=== PATIENT | female | born 1955 | race African-American/Black ===

== ENCOUNTER 2017-07-04 13:12 | Inpatient (IN) | payer OTHER ==
[~2017-07-04] VITALS: Ht 160 cm; Wt 84.7 kg
[~2017-07-04 13:12] MED LIST: ACIDOPHILUS1 CAP PO; ADVAIR 250-501 EACH INH; ALBUTEROL2.5 MG/3 M INH; AMLODIPINE BESY10 M1 PO; ASPIRIN EC81 M1 PO; CARVEDILOL25 M1 PO; COREG12.5 M1 PO; COREG3.125 MG PO; ECOTRIN81 MG PO; FERROUS SULFAT325 M2 PO; GENTAMICIN SULFA5 ML OPH; HUMALOG KW100 UNIT/1 SC; HYDRALAZINE HC100 M1 PO; HYDRALAZINE HCL50 M1 PO; HYDROXYZINE HCL25 M2 PO; ILEVRO1.7 ML; LANTUS SOL100 UNIT/1 SC; LASIX40 M1 PO; LEADER NIC14 MG/24 H TOP; LEVEMIR100 UNIT/1 SC; LISINOPRIL40 M1 PO; LOMOTIL 0.025 M1 TAB PO; LOMOTIL 2.5-0.1 EACH PO; LYRICA50 M1 PO; NICOTINE PATCH1 EAC2 TD; NORVASC10 M1 PO; NOVOLOG100 UNIT/2 SC; PERCOCET 7.5-31 EACH PO; PRAVACHOL40 M1 PO; PROAIR HFA8.5 GM INH; PROCRIT20000 UNIT SC; PROTONIX40 M3 PO; TRADJENTA5 M1 PO; TRAMADOL50 MG PO; TRAZODONE HCL150 M1 PO; TRICOR48 M1 PO; VOLTAREN100 GM TOP; ZESTRIL10 M1 PO
[2017-07-04 13:48] LABS: ABSOLUTE BASOPHIL COUNT 0.1 /CUMM (0.0-0.2); ABSOLUTE EOSINOPHIL COUNT 0.1 /CUMM (0.0-0.7); ABSOLUTE LYMPH COUNT 0.9 /CUMM (1.2-3.4); MEAN PLATELET VOLUME 7.8 FL (7.4-10.4)
[2017-07-04 13:56] LABS: ABSOLUTE GRANULOCYTE CT 6.8 /CUMM (1.4-6.5); ABSOLUTE MONOCYTE COUNT 0.6 /CUMM (0.10-0.60); BASOPHIL % 1.3 % (0.0-2.0); EOSINOPHIL % 0.8 % (0-5); HEMATOCRIT 20.5 % (37-47); MEAN CORPUSCULAR HGB CONC 29.6 G/DL (33.0-37.0); MEAN CORPUSCULAR VOLUME 91.1 FL (81.0-99.0); PLATELET COUNT 448 /CUMM (130-400); RBC DISTRIBUTION WIDTH 18.6 % (11.5-14.5); RED BLOOD CELL CT 2.25 /CUMM (4.20-5.40); WHITE BLOOD CELL COUNT 8.4 /CUMM (4.8-10.8)
--- NOTE | 2017-07-04 14:15 | ED CARDIAC/CP/PALPITATIONS ---
History of Present Illness General Chief Complaint: Chest Pain Stated Complaint: C/O CHEST PAIN SOB Source: patient, old records Exam Limitations: no limitations Vital Signs & Intake/Output Vital Signs & Intake/Output Vital Signs Date Time Temp Pulse Resp B/P B/P Pulse O2 O2 Flow FiO2 Mean Ox Delivery Rate 07/04 1539 Nasal 2.0L Cannula 07/04 1513 98.8 68 18 167/69 99 Room Air 07/04 1328 98.5 73 18 117/71 90 Room Air Allergies Coded Allergies: No Known Allergies (09/01/15) Reconcile Medications Albuterol Sulfate (Proair Hfa) 90 MCG HFA.AER.AD 2 PUF INH Q4 BREATHING PROBLEMS Albuterol Sulfate 2.5 MG/3 ML (0.083 %) VIAL.NEB 3 ML INH Q4-6 PRN PRN SHORTNESS OF BREATH . Amlodipine Besylate (Norvasc) 10 MG TABLET 10 MG PO DAILY blood pressure .. Aspirin (Ecotrin*) 81 MG TABLET.DR 1 TAB PO DAILY HEART HEALTH Carvedilol 25 MG TABLET 25 MG PO BID blood pressure .. Diphenoxylate HCl/Atropine (Lomotil 2.5-0.025 MG Tablet) 2.5 MG-0.025 MG TABLET 2 TAB PO DAILY DIARRHEA (Reported) Epoetin Elia (Procrit) 20,000 UNIT/ML VIAL 15,000 U SC QSUN anemia .. Fenofibrate (Tricor) 48 MG TABLET 1 TAB PO DAILY CHOLESTEROL Ferrous Sulfate 325 MG (65 MG IRON) TABLET.DR 325 MG PO DAILY supplement take 1 tab twice a day. Fluticasone/Salmeterol (Advair 250-50 Diskus) 250 MCG-50 MCG/DOSE BLST.W.DEV 1 PUF INH BID BREATHING PROBLEMS Furosemide (Lasix) 40 MG TABLET 1.5 TAB PO DAILY WATER RETENTION Hydralazine HCl 100 MG TABLET 1 TAB PO TID BLOOD PRESSURE take 1 tab three times a day.. Hydroxyzine Hydrochloride (Atarax) 25 MG TABLET 1 TAB PO BID UNKNOWN ( Reported) Insulin Aspart (Novolog) 100 UNIT/ML VIAL 0 UNITS SC TIDAC diabetes sugar unit <150 0 151-200 4 201-250 6 251-300 8 301-350 10 351-400 12 >400 14, call Insulin Detemir (Levemir) 100 UNIT/ML VIAL 14 UNITS SC AT BEDTIME diabetes .. Nepafenac (Ilevro) 0.3 % DROPS.SUSP EYE (Reported) Nicotine (Nicotine Patch) 14 MG/24 HOUR PATCH.TD24 1 PAT TD DAILY smoking cessation Oxycodone HCl/Acetaminophen (Percocet 7.5-325 MG Tablet) 7.5 MG-325 MG TABLET 1 TAB PO 4 TIMES/DAY PRN PAIN (Reported) Pantoprazole Sodium (Protonix) 40 MG TABLET.DR 1 TAB PO DAILY ACID REFLUX Pravastatin Sodium (Pravachol) 40 MG TABLET 1 TAB PO DAILY CHOLESTEROL Pregabalin (Lyrica) 50 MG CAPSULE 1 CAP PO TID PAIN (Reported) Trazodone HCl 150 MG TABLET 1 TAB PO QPM SLEEP (Reported) Triage Note: PT TO ER C/C SOB X 5 DAYS, USING BREATHING TX AT HOME WITH LITTLE RELIEF. RA SAT 90%. DRY COUGH. AFEBRILE. HX COPD, CHF. PATIENT ABLE TO SPEAK IN FULL SENTENCES Triage Nurses Notes Reviewed? yes Onset: Gradual Duration: day(s): (few) Timing: recent history Location: central Activities at Onset: activity Associated Symptoms: shortness of breath HPI: 61 year old female with history of CHF, COPD, DM presents to the ER for chief complaint of shortness of breath with exertion as well as chest pain with exertion. She reports some increased leg swelling. For the last two nights she was unable to sleep because she was unable to lie down. She reports low grade temp at home but no chills or rigors. History of previous anemia. Past History Travel History Traveled to [place] past 21 day No Medical History Any Pertinent Medical History? 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 No Review of Systems Review of Systems Constitutional: Denies: chills, fever. EENTM: Reports: no symptoms. Respiratory: Reports: short of breath. Denies: cough. Cardiovascular: Reports: chest pain. Denies: palpitations, peripheral edema. GI: Reports: diarrhea. Denies: abdominal pain, nausea, vomiting. Genitourinary: Reports: no symptoms. Musculoskeletal: Reports: no symptoms. Skin: Reports: no symptoms. Neurological/Psychological: Reports: no symptoms. Hematologic/Endocrine: Denies: bruising, bleeding, polyuria, polydipsia. Immunologic/Allergic: Reports: no symptoms. All Other Systems: Reviewed and Negative Physical Exam Physical Exam General Appearance: well developed/nourished, alert, awake, anxious, moderate distress, obese Head: atraumatic, normal appearance Eyes: Bilateral: normal appearance, PERRL, EOMI. Ears, Nose, Throat: normal pharynx, normal ENT inspection, hearing grossly normal Neck: normal inspection, supple, full range of motion Respiratory: decreased breath sounds, respiratory distress Cardiovascular: regular rate/rhythm Peripheral Pulses: 2+ radial (R), 2+ radial (L) Gastrointestinal: normal bowel sounds, soft, non-tender Back: normal inspection, normal range of motion Neurologic/Psych: no motor/sensory deficits, awake, alert, oriented x 3 Skin: intact, normal color, warm/dry Core Measures ACS in differential dx? Yes CVA/TIA Diagnosis No Sepsis Present: No Sepsis Focused Exam Completed? No Progress Differential Diagnosis: AMI, CHF/pulm edema, pneumonia, pneumothorax, pulmonary embolism, COPD EXACERBATION, symptomatic anemia Plan of Care: Orders Procedure Date/time Status Consistent Carbohydrate 1 07/04 D Active BASIC ELECTROLYTES 07/04 1604 Active Intake & Output 07/04 1538 Active Patient Data 07/04 1517 Active VITAL CAPACITY MONITORING 07/04 1512 Active ED Holding Orders 07/04 1512 Active Admit to inpatient 07/04 1512 Active Vital Signs 07/04 1512 Active URINALYSIS 07/04 1512 Active Code Status 07/04 1512 Active PARTIAL THROMBOPLASTIN TIME 07/04 1451 Complete PROTHROMBIN TIME 07/04 1451 Complete TYPE & SCREEN (NOT X-MATCH) 07/04 1451 Active LEUKOCYTE POOR (PACKED CELLS) 07/04 1451 Active Add-on Test (ER Only) 07/04 1450 Active Telemetry/Staff Consultant 07/04 1435 Active B-TYPE NATRIURETIC PEP (BNP) 07/04 1338 Complete TROPONIN LEVEL 07/04 1324 Complete COMPREHENSIVE METABOLIC PANEL 07/04 1324 Complete CBC WITHOUT DIFFERENTIAL 07/04 1324 Complete EKG 07/04 1313 Active Laboratory Tests 07/04/17 1338: Anion Gap 8, Estimated GFR 26 L, BUN/Creatinine Ratio 17.0, Glucose 171 H, Calcium 8.0 L, Total Bilirubin < 0.1 L, AST 15, ALT 29, Alkaline Phosphatase 42, Troponin I < 0.01, Dpz-T-Prqcsyfayxo Pept 1060 H, Total Protein 5.6 L, Albumin 2.9 L, Globulin 2.7, Albumin/Globulin Ratio 1.1, PT 11.0, INR 1.05, APTT 28, CBC w Diff NO MAN DIFF REQ, RBC 2.25 L, MCV 91.1, MCH 27.0, RDW 18.6 H, MPV 7.8, Gran % 81.0 H, Lymphocytes % 10.1 L, Monocytes % 6.8, Eosinophils % 0.8, Basophils % 1.3, Absolute Granulocytes 6.8 H, Absolute Lymphocytes 0.9 L, Absolute Monocytes 0.6, Absolute Eosinophils 0.1, Absolute Basophils 0.1, PUBS MCHC 29.6 L PATIETN FOUND IN ARF WITH HYPERKALEMIA, WORSENING ANEMIA. DEXTROSE, INSULIN, CALCIUM ORDERED. TRANSFUSION ORDERED. PATIENT WILL BE ADMITTED TO TELEMETRY. 3:04 PM D/W DR RICHARD PEDRO WHO WILL SEE PATIENT IN MORNING Diagnostic Imaging: Viewed by Me: Radiology Read. Discussed w/RAD: Radiology Read. CXR Impression: PATIENT: ORLIN FERNANDEZ PRESENT AGE: 61 PATIENT ACCOUNT NO: [id number] : 59 LOCATION: [facility] ORDERING PHYSICIAN: Asia Badillo MD SERVICE DATE: 07/04/17 EXAM TYPE: RAD - XRY-PORTABLE CHEST XRAY EXAMINATION: CHEST 1 VIEW CLINICAL INFORMATION: Shortness of breath, chest pain. COMPARISON: 06/04/2017. TECHNIQUE: An AP view of the chest is provided. FINDINGS: The cardiac silhouette is enlarged, but stable. There is right lower lobe airspace disease with obscuration the right hemidiaphragm. The osseous structures are stable. IMPRESSION: Right lower lobe airspace disease concerning for developing infiltrate. Consider correlation with a lateral view for further characterization. Stable cardiomegaly. DICTATED BY: Everett Benton MD DATE/TIME DICTATED:07/04/171507 SHOPPING INVESTIGATOR:NIKI DATE/TIME TRANSCRIBED:07/04/171507 CONFIDENTIAL, DO NOT COPY WITHOUT APPROPRIATE AUTHORIZATION. <Electronically signed in Other Vendor System> SIGNED BY: Everett Benton MD 07/04/171518 Initial ED EKG: NSR, FLAT ST 3, AVF Prior EKG: unchanged Rhythm Strip: normal sinus rhythm Departure Departure Time of Disposition: 1508 Disposition: STILL A PATIENT Condition: Stable Clinical Impression Primary Impression: ARF (acute renal failure) Secondary Impressions: Hyperkalemia, Symptomatic anemia Referrals: Eduardo Beavers MD (PCP/Family) Departure Forms: Customer Survey General Discharge Information Prescriptions: Current Visit Scripts Furosemide (Lasix) 1.5 TAB PO DAILY #30 TAB Admission Note Spoke With: Jo Ann Sanchez MD Documentation of Exam: Documentation of any treatments & extenuating circumstances including Concerns Regarding Discharge (functional status, medication knowledge or non-compliance, living conditions, etc.) that warrant an admission rather than observation: [ tele monitor, recheck ELECTROLYTES, CARDIOLOGY CONSULTATION, TRANSFUSION, MAY NEED INTERMITTENT DIURESIS, RENAL CONSULT] Critical Care Note Critical Care Note Critical Care Time: 30-74 min
--- NOTE | 2017-07-04 15:19 | RADIOLOGY REPORT ---
EXAMINATION: CHEST 1 VIEW CLINICAL INFORMATION: Shortness of breath, chest pain. COMPARISON: 06/04/2017. TECHNIQUE: An AP view of the chest is provided. FINDINGS: The cardiac silhouette is enlarged, but stable. There is right lower lobe airspace disease with obscuration the right hemidiaphragm. The osseous structures are stable. IMPRESSION: Right lower lobe airspace disease concerning for developing infiltrate. Consider correlation with a lateral view for further characterization. Stable cardiomegaly.
[2017-07-04 15:25] LABS: PTT 28 SEC (25-37)
--- NOTE | 2017-07-04 15:28 | History & Physical ---
Amber Shaikh MD 07/04/17 1527: General Information and HPI MD Statement: I have seen and personally examined ORLIN FERNANDEZ and documented this H&P. The patient is a 61 year old F who presented with a patient stated chief complaint of exertional chest pain and shortness of breath, diarrhea Source of Information: patient, family, old records Exam Limitations: no limitations History of Present Illness: Patient is a 61 year old woman with a pmh significant for COPD not on home oxygen, CHF, HLD, HTN, osteoporesis, DM, hepatitis c s/p Harvoni in 2012, chronic lower extremity edema for 1.5 years, smoker, chronic diarrhea since cholecystectomy in 2014, that comes to see us with a chief complaint of exertional chest pain and shortness of breath for 3-4 days and a dry cough. Her daughter is with her and gives much of the history as the patient is somewhat irritable. The daughter states that her exertional chest pain and shortness of breath have required her to need her pump and breathing treatments more and more often recently. She took her temperature at home and found it was 99. She also notes that she has increasing edema since last week and states that she is always thirsty. She admits to being quite cold lately but denies any rigors, headache, nausea, vomiting, hematemesis or melena or hematochezia, palpitations, dizziness. She does state that she cannot lay flat due to her shortness of breath. She does not endorse any increase in her abdominal girth. The patient does not use a CPAP at night. She notes that she was supposed to get a sleep study recently but has not gone yet. The patient was recently seen here [facility] from February to March of last year for shortness of breath and worsening anemia and unfortunately had contrast-induced nephropathy. She was also seen in May for shortness of breath secondary to CHF exacerbation and anemia with hemoglobin count of 6.6. She had had a colonoscopy and endoscopy which have found no source of bleeding and hemoglobin electrophoresis which was normal. In total she received 3 units. The plan was for her to get iron and Procrit and follow-up with Dr. Abrams hematology and Dr. Hdz for PillCam which she was supposed to do next week. Echo done in hospital that point showed an EF of 65% and other than moderate mitral annular calcification was otherwise fairly normal. It also showed a mildly elevated right ventricular systolic pressure of 35-40. She was discharged on Lasix of 40 mg. The patient states that she urinates about 6-7 times a day, sometimes needs to push on her bladder to go however. The patient had a urine culture done her anger stay with us in February and was found to be positive for enterococcus. The patient states that she has diarrhea since her cholecystectomy in 2014. Patient has a history of a mother with diabetes and 2 sisters with cancer. The patient has smoked 1 pack of cigarettes for the past 45 years, no alcohol use, no drugs recently, history of heroin and cocaine use. Allergies/Medications Allergies: Coded Allergies: No Known Allergies (09/01/15) Home Med list Albuterol Sulfate (Proair Hfa) 90 MCG HFA.AER.AD 2 PUF INH Q4 BREATHING PROBLEMS Albuterol Sulfate 2.5 MG/3 ML (0.083 %) VIAL.NEB 3 ML INH Q4-6 PRN PRN SHORTNESS OF BREATH . Amlodipine Besylate (Norvasc) 10 MG TABLET 10 MG PO DAILY blood pressure .. Aspirin (Ecotrin*) 81 MG TABLET.DR 1 TAB PO DAILY HEART HEALTH Carvedilol 25 MG TABLET 25 MG PO BID blood pressure .. Diphenoxylate HCl/Atropine (Lomotil 2.5-0.025 MG Tablet) 2.5 MG-0.025 MG TABLET 2 TAB PO DAILY DIARRHEA (Reported) Epoetin Elia (Procrit) 20,000 UNIT/ML VIAL 15,000 U SC QSUN anemia .. Fenofibrate (Tricor) 48 MG TABLET 1 TAB PO DAILY CHOLESTEROL Ferrous Sulfate 325 MG (65 MG IRON) TABLET. 325 MG PO DAILY supplement take 1 tab twice a day. Fluticasone/Salmeterol (Advair 250-50 Diskus) 250 MCG-50 MCG/DOSE BLST.W.DEV 1 PUF INH BID BREATHING PROBLEMS Furosemide (Lasix) 40 MG TABLET 1 TAB PO DAILY WATER RETENTION Hydralazine HCl 100 MG TABLET 1 TAB PO TID BLOOD PRESSURE take 1 tab three times a day.. Hydroxyzine Hydrochloride (Atarax) 25 MG TABLET 1 TAB PO BID UNKNOWN ( Reported) Insulin Aspart (Novolog) 100 UNIT/ML VIAL 0 UNITS SC TIDAC diabetes sugar unit <150 0 151-200 4 201-250 6 251-300 8 301-350 10 351-400 12 >400 14, call Insulin Detemir (Levemir) 100 UNIT/ML VIAL 14 UNITS SC AT BEDTIME diabetes .. Lisinopril 40 MG TABLET 1 TAB PO DAILY blood pressure . Nepafenac (Ilevro) 0.3 % DROPS.SUSP EYE (Reported) Nicotine (Nicotine Patch) 14 MG/24 HOUR PATCH.TD24 1 PAT TD DAILY smoking cessation Oxycodone HCl/Acetaminophen (Percocet 7.5-325 MG Tablet) 7.5 MG-325 MG TABLET 1 TAB PO 4 TIMES/DAY PRN PAIN (Reported) Pantoprazole Sodium (Protonix) 40 MG TABLET.DR 1 TAB PO DAILY ACID REFLUX Pravastatin Sodium (Pravachol) 40 MG TABLET 1 TAB PO DAILY CHOLESTEROL Pregabalin (Lyrica) 50 MG CAPSULE 1 CAP PO TID PAIN (Reported) Trazodone HCl 150 MG TABLET 1 TAB PO QPM SLEEP (Reported) Compliance With Home Meds: GOOD Past History Travel History Traveled to [place] past 21 day No Medical History Neurological: NONE EENT: cataracts Cardiovascular: CHF, hypertension, hyperlipidemia Respiratory: COPD, pneumonia Gastrointestinal: NONE, iron deficiency anemia chronic, intermittent diarrhea Hepatic: NONE Renal: NONE Musculoskeletal: falls, osteoporosis Psychiatric: NONE Endocrine: diabetes Blood Disorders: anemia Cancer(s): NONE IRIDOLOGIST/Reproductive: NONE History of MRSA: No History of VRE: No History of CDIFF: No Surgical History Surgical History: appendectomy, cholecystectomy, N CATARACTS (fhx: neg ESRD) Past Family/Social History Family History Relations & Conditions if any MOTHER FH: diabetes mellitus Psychosocial History Services at Home: None ETOH Use: denies use Illicit Drug Use: NONE Review of Systems Review of Systems Constitutional: Reports: chills, weakness. EENTM: Denies: no symptoms. Cardiovascular: Reports: chest pain, edema. Respiratory: Reports: orthopnea, short of breath, wheezing. GI: Reports: diarrhea. Genitourinary: Reports: frequency. Musculoskeletal: Reports: no symptoms. Skin: Reports: no symptoms. Neurological/Psychological: Reports: no symptoms. Hematologic/Endocrine: Reports: no symptoms. Immunologic/Allergic: Reports: no symptoms. Exam & Diagnostic Data Last 24 Hrs of Vital Signs/I&O Vital Signs Date Time Temp Pulse Resp B/P B/P Pulse O2 O2 Flow FiO2 Mean Ox Delivery Rate 07/04 1756 98.6 74 20 156/72 97 Nasal 2.0L Cannula 07/04 1539 Nasal 2.0L Cannula 07/04 1513 98.8 68 18 167/69 99 Room Air 07/04 1328 98.5 73 18 117/71 90 Room Air Intake & Output 07/04 1600 07/04 0800 07/04 0000 Intake Total 100 Output Total Balance 100 Intake, IV 100 Intake, Oral 0 Patient 184 lb Weight Weight Reported by Patient Measurement Method Physical Exam General Appearance Alert, Oriented X3, Cooperative, No Acute Distress Skin No Rashes, No Breakdown, No Significant Lesion Skin Temp/Moisture Exam: Warm/Dry Sepsis Skin Exam (color): Normal for Ethnicity HEENT Atraumatic, PERRLA, EOMI, Mucous Membr. moist/pink Neck Supple, positive jvd Cardiovascular Regular Rate, Normal S1, Normal S2, No Murmurs Lungs mild wheezes Abdomen Normal Bowel Sounds, Soft, No Tenderness Neurological Normal Speech Extremities No Clubbing, No Cyanosis, Normal Pulses, No Tenderness/Swelling, 2+ pitting edema bilaterally Vascular Normal Pulses, Pulses Symmetrical Last 24 Hrs of Labs/Olu: Laboratory Tests 07/04/17 1730: Sodium Pending, Potassium Pending, Chloride Pending, Carbon Dioxide Pending, Anion Gap Pending 07/04/17 1338: Anion Gap 8, Estimated GFR 26 L, BUN/Creatinine Ratio 17.0, Glucose 171 H, Calcium 8.0 L, Iron 188 H, TIBC 368, Ferritin 11.1, Total Bilirubin < 0.1 L, AST 15, ALT 29, Alkaline Phosphatase 42, Troponin I < 0.01, Zrc-U-Sjvuklpylib Pept 1060 H, Total Protein 5.6 L, Albumin 2.9 L, Globulin 2.7, Albumin/ Globulin Ratio 1.1, PT 11.0, INR 1.05, APTT 28, CBC w Diff NO MAN DIFF REQ, RBC 2.25 L, MCV 91.1, MCH 27.0, RDW 18.6 H, MPV 7.8, Gran % 81.0 H, Lymphocytes % 10.1 L, Monocytes % 6.8, Eosinophils % 0.8, Basophils % 1.3, Absolute Granulocytes 6.8 H, Absolute Lymphocytes 0.9 L, Absolute Monocytes 0.6, Absolute Eosinophils 0.1, Absolute Basophils 0.1, PUBS MCHC 29.6 L Microbiology 07/04 1720 TIFFANYN: Influenza Virus A & B Rapid Smear - COMP Assessment/Plan Assessment: Patient is a 61 year old woman with a pmh significant for COPD not on home oxygen, CHF, HLD, HTN, osteoporesis, DM, hepatitis c s/p Harvoni in 2012, chronic lower extremity edema for 1.5 years, smoker, chronic diarrhea since cholecystectomy in 2014, that comes to see us with a chief complaint of exertional chest pain and shortness of breath for 3-4 days and a dry cough. She was found to have a hemoglobin of 6.5 and potassium of 6.1. Patient has been seen by us previously and has been worked up for anemia with a colonoscopy and endoscopy with a PillCam planned for June and is on Procrit and iron. The patient's last echocardiogram was mostly normal with an ejection fraction of 65% and some mitral annular calcification. The patient usually takes Lasix 40 mg for her chronic lower leg edema. She has also been seen by us before for a CHF exacerbation. Patient denies being on potassium pills or any other type of vitamin. In the ED the patient had temperature 98.5, heart rate 73, respiratory rate 18, blood pressure 117/71, 90% oxygen saturation on room air which increased to 99% saturation on next reading. Chest x-ray showed a right lower lobe infiltrate. EKG showed a rate of 74, QTC 462, normal sinus rhythm with no T-wave peaking in a normal QRS. Labs showed WBC count 8.4, hemoglobin 6.1, potassium of 6.5, creatinine of 2.0, troponins negative. Helio's note patient's creatinine is at her baseline. Dr. Jackman saw the patient in the ED The patient in the ED was given Nitro-Bid and Kayexalate, Novolin insulin, dextrose, calcium gluconate for the increased potassium. Physical exam was normal except for presence of JVD, wheezing throughout and 2+ bilateral pitting edema. Plan Continue patient on aspirin, Coreg, hydralazine, Norvasc Hold patient lisinopril for elevated potassium level Follow-up urine cultures for patient's urinary frequency. Follow formal cardiac consult with Dr. Jackman in the morning Get consent for blood and give 1 unit after dosing with IV Lasix 40 mg Start IV Lasix 40 mg daily EKG and troponins 2 at 7 PM and 1 AM A chest x-ray in the morning as we are not treating patient for pneumonia even though infiltrate was seen. Patient has normal WBCs, no fever, no signs of infection. Flu swab Iron studies Hematology consult pending iron studies for question of IV iron Repeat potassium level now for question of hemolysis and in the morning Nephrology consult after confirming hyperkalemia Stool guaiac full code As Ranked By This Provider Problem List: 1. Hyperkalemia 2. Fluid overload 3. Type 2 diabetes mellitus 4. Hypertension 5. CHF (congestive heart failure) 6. CHF (congestive heart failure) 7. Anemia 8. Chronic kidney disease Core Measures/Misc (03/11) Acute Coronary Syndrome ACS Diagnosis: No Congestive Heart Failure Congestive Heart Failure Diagnosis No Cerebrovascular Accident CVA/TIA Diagnosis: No VTE (View Protocol) VTE Risk Factors Age>40 No Mechanical VTE Prophylaxis d/t N/A MechProphylax Ordered No VTE Pharm Prophylaxis d/t Bleeding (Active) Sepsis (View protocol) Sepsis Present: No Kal Smiley MD 07/04/171811: Resident Review Statement Resident Statement: examined this patient, discussed with regulatory affairs internship, agreed with regulatory affairs internship, discussed with family Other Findings: Patient is a 61-year-old female with multiple medical problem. Presented with chief complaints of generalized weakness, dyspnea on exertion, chest heaviness increased bilateral leg edema since last 2 weeks. According to the patient, she feels shortness of breath even going to the bathroom. She does complain for heaviness of the chest,/tightness in the chest while walking. She is not able to lie down flat on the bed secondary to dyspnea, she thinks her weight has been increased. She also says that her bilateral lower leg swelling has been increased since last 2 weeks. She is compliant with her medication. But she does not have any control on her diet/fluid intake/sodium intake. She also had mild grade fever on Sunday. She denies for any cough, no runny nose, sinusitis, dizziness, abdominal fullness, sick contact. She always gets diarrhea secondary to cholecystectomy and currently on loperamide. She denies for any bloody diarrhea, abdominal pain, any abnormal food intake outside. She is getting erythropoietin since last 3 weeks. Past medical history - Chronic/current smoker -one pack per day Hepatitis C treated at [facility], by Milagros (2013) Diabetes mellitus Hypertension Congestive heart failure COPD, not on oxygen History of asthma History of chronic anemia History of admission into [facility] secondary to hypoxic respiratory failure/pneumonia(2015) Osteoporosis GI history - In 2015, she was admitted in to [facility] secondary to respiratory failure/pneumonia which was complicated a cholecystectomy and severe anemia, required transfusion. She underwent endoscopic evaluation by Dr. dHz on 2015, which was negative except for gastroparesis, gastric and duodenal biopsies were unrevealing. Colonoscopy was also negative for neoplasia/colitis/ileitis. Biopsies of colon and ileum were normal. After cholecystectomy, she had diarrhea for which she was started on cholestyramine, but she failed to improve, so now started on Lomotil. She was diagnosed as having iron deficiency anemia without overt bleeding. She presented again in February 2017. Anemia was Dx as multifactorial in nature and advised that she may need capsular endoscope in the future. She is due for capsular endoscope, and visit to Dr. Hdz on July 09. ED course -patient was presented with shortness of breath from 5 days and was using breathing treatment with little relief. At the time of presentation, her saturation was 90% on room air. Vital signs at the time of presentation - temperature 98.5, pulse 73, respiratory rate 18, blood pressure 117/71, SPO2 90 percent on room air. Blood workup showed hemoglobin 6.1, hematocrit 20.5, platelet count 448, serum sodium 142, potassium 6.5, chloride 110, BUN 34, creatinine 2.0, GFR 26, glucose 171, calcium 8.0, troponin 0.01, proBNP 1060, total protein 5.6, albumin 2.9, AST 15, ALT 29, alkaline phosphatase 42. Chest x -ray showed right lower lobe airspace disease,? developing infiltrate. EKG showed tented T waves and V2 and V3. As she was having potassium of 6.1. She was given injection calcium gluconate, 50% dextrose plus 10 units of insulin, Kayexalate. It was decided to admit the patient to telemetry for further evaluation and management. On examination -patient was alert, oriented to time, place and person. She was slightly anxious because of her situation. She was able to complete her sentence. On 2 liters of oxygen.Her skin was pale, sclera icteric, JVD plus, chest bilateral decreased air entry, absent entry left base, heart S1, S2 normal , abdomen distended but soft. Bowel sounds are positive, bilateral lower leg pitting edema present, till knees. Assessment and plan - Patient is 61-year-old female with multiple medical problem including hepatitis C, past medical history of iron deficiency anemia and found to have multifactorial anemia on last visit. She was well evaluated by slitter helper, and advised for capsular endoscopy. She had slowly progressive dyspnea on exertion along with bilateral leg edema and feet can possibly secondary to CHF. She is not having controll on fluid and salt intake. She drinks juices, drinks and probably that may lead to hyperkalemia. Other possibilities are ADRI/ARB, along with chronic kidney disease. She may need further evaluation by communications editor, if hyperkalemia persist. Meantime, we will hold medication that can lead to hyperkalemia. She has history of iron deficiency anemia. We cannot comment as she has been compliant with iron medication. We will check the iron panel and even talk to the sulfur chloride operator for IV iron therapy. Hyperkalemia * We will admit the patient to telemetry to watch for arrhythmia. * We will avoid the medication which can increase the hyperkalemia - ADRI/ARB, heparin. * We will decreased the oral potassium intake to 2 grams per day * Monitoring of serum potassium every 4 hourly, till it become normal * Follow-up CBC/BEP tomorrow * Will consider nephrology if needed Severe anemia * We will transfuse 1 unit of PRBC, we will recheck CBC after blood transfusion. * We will do serial troponins and EKGs * She is having history of iron deficiency anemia. We will place,Hematologic consult to ask for IV iron therapy. * We will watch for bleeding * Target hemoglobin >8 Acute on chronic CHF * We will start her on injection Lasix 40 mgs IV daily * Daily weight measurement * Strict intake output charting Low-grade fever, right basilar atelectasis on chest x-ray - * We will check for the flu and will do follow-up chest x-ray to rule out any evidence of pneumonia Chronic medical issues * We'll continue on her medication except ACEI/ARBs Type II DM - * Novalog according to sliding scale. * Inj Levemir 14 U at the bed time. Diet - fluid restriction 1 liter per day, potassium restriction, less than 2 grams per day CODE STATUS-full code DVT prophylaxis-Jo Ann Borden MD 07/05/17 0753: Attending MD Review Statement Attending Statement Attending MD Statement: examined this patient, discuss w/resident/PA/EQUIPMENT MECHANIC SPECIALIST, agreed w/resident/PA/EQUIPMENT MECHANIC SPECIALIST, discussed with family, discussed with nursing, reviewed images Attending Assessment/Plan: See medical brief addendum note dated 07/04/17
--- NOTE | 2017-07-04 15:47 | Admission Certification ---
Admission Certification Certification Statement - As attending physician, I certify that at the time of - admission, based on clinical presentation, severity of - symptoms, need for further diagnostic testing and - therapeutic interventions, and risk of adverse outcomes - without in-hospital treatment, in my clinical assessment, - this patient requires an acute hospital stay for a minimum - of two nights or longer. I have also considered psychsocial - factors such as support system, advanced age, financial - issues, cognitive issues, and failed out-patient treatments, - past re-admission history, safety of patient, and lack of - compliance as applicable. Specific rationale supporting this admission is: Hyperkalemia, severe anemia in patient with CKD.
--- NOTE | 2017-07-04 15:52 | PN- Att Addend ---
Attending Addendum Attending Brief Note Patient seen and examined. She is known to me from multiple previous admissions. She is a 61-year-old female with multiple comorbidities including diabetes, hypertension, chronic diastolic heart failure, COPD and chronic anemia among her problems. She was here March 15 to March 31 where she came in with shortness of breath and developed contrast-induced nephropathy. She was also here June 04 to June 06 for an exacerbation of her diastolic heart failure and worsening of her anemia. She returns today with complaints of shortness of breath and was found to be profoundly hyperkalemic and anemic with a K of 6.5 and a hemoglobin of 6. From her anemia standpoint she's been fairly extensively worked up and in September 2015- had a colonoscopy that was negative and in January 2017 had an endoscopy that was negative. She was scheduled to have a PillCam done by Dr. Hdz in the office. On her last admission she also had a hemoglobin electrophoresis which was normal and was also seen by hematology who suggested IRON replacement and erythropoietin. At this time her renal function is close to her baseline in that her creatinine is at 2 and she was discharged in May with a creatinine that was 2, so I am unclear as to why she is profoundly anemic or hyperkalemic. Will bring her into telemetry, she is having episodes of shortness of breath and chest pressure will make sure it's not an angina equivalent and check serial enzymes and EKG. We will continue her aspirin her Coreg, hydralazine and her Norvasc. With the degree of anemia she appears to be in mild diastolic heart failure and will give her IV Lasix today while watching the renal function closely. We'll obviously hold on the ADRI inhibitor and DC it for now given the degree of hyperkalemia and follow the K closely. She also already got calcium gluconate, insulin and Kayexalate in the ER. Will call renal to see her given the hyperkalemia that out of proportion to the CKD. Given the profound anemia guaiac the stool, add iron studies and transfuse 1 unit slowly. We'll also make sure she is taking her iron and her erythropoietin. Called hematology in a.m. to see whether there is any value to giving her IV iron. I think the shortness of breath is from her anemia and diastolic heart failure. She doesn't appear to have any infection in terms of fever or white count. Nonetheless given the complaints of shortness of breath, will check a flu swab. The chest x-ray is being read as a right lower lobe infiltrate but given the lack of clinical symptoms will watch off antibiotics and repeat the chest x-ray.
[2017-07-04 18:44] VITALS: BP 160/82
[2017-07-04 23:44] VITALS: BP 160/82
[2017-07-05 03:55] LABS: ABSOLUTE BASOPHIL COUNT 0 /CUMM (0.0-0.2); ABSOLUTE EOSINOPHIL COUNT 0.1 /CUMM (0.0-0.7); ABSOLUTE GRANULOCYTE CT 8.2 /CUMM (1.4-6.5); ABSOLUTE LYMPH COUNT 1.2 /CUMM (1.2-3.4); BASOPHIL % 0.1 % (0.0-2.0); EOSINOPHIL % 1.1 % (0-5); MEAN CORPUSCULAR HGB 27.9 PG (27.0-31.0); MEAN CORPUSCULAR HGB CONC 30.8 G/DL (33.0-37.0); MEAN CORPUSCULAR VOLUME 90.4 FL (81.0-99.0); MEAN PLATELET VOLUME 7.6 FL (7.4-10.4); PLATELET COUNT 442 /CUMM (130-400); RBC DISTRIBUTION WIDTH 17.5 % (11.5-14.5); WHITE BLOOD CELL COUNT 10.4 /CUMM (4.8-10.8)
[2017-07-05 03:59] LABS: HEMATOCRIT 25.6 % (37-47); RED BLOOD CELL CT 2.83 /CUMM (4.20-5.40)
[2017-07-05 07:00] VITALS: BP 160/68
[2017-07-05 09:37] LABS: ABSOLUTE BASOPHIL COUNT 0 /CUMM (0.0-0.2); ABSOLUTE EOSINOPHIL COUNT 0.2 /CUMM (0.0-0.7); ABSOLUTE GRANULOCYTE CT 9.1 /CUMM (1.4-6.5); ABSOLUTE LYMPH COUNT 1.1 /CUMM (1.2-3.4); ABSOLUTE MONOCYTE COUNT 0.9 /CUMM (0.10-0.60); BASOPHIL % 0.2 % (0.0-2.0); EOSINOPHIL % 1.8 % (0-5); HEMATOCRIT 26.3 % (37-47); MEAN CORPUSCULAR HGB CONC 31.2 G/DL (33.0-37.0); MEAN CORPUSCULAR VOLUME 89.8 FL (81.0-99.0); MEAN PLATELET VOLUME 7.6 FL (7.4-10.4); PLATELET COUNT 433 /CUMM (130-400); RBC DISTRIBUTION WIDTH 17.2 % (11.5-14.5); RED BLOOD CELL CT 2.93 /CUMM (4.20-5.40); WHITE BLOOD CELL COUNT 11.4 /CUMM (4.8-10.8)
--- NOTE | 2017-07-05 09:37 | Cons- Cardiology ---
General Information and HPI Consulting Request Date of Consult: 07/05/17 Requested By: Alisson WILLIAMSON,Nhan Begum Reason for Consult: Shortness of breath and question congestive heart failure, anemia, hyperkalemia. Source of Information: patient, old records Exam Limitations: no limitations History of Present Illness: Orlin Fernandez is a 61-year-old female who has diabetes and hypertension, CKD and diabetic neuropathy. The patient has a history of a prolonged illness in [facility]. This according to the records was a hospitalization from 08/03/2015 to 08/17/2015. She apparently presented with shortness of breath, leg edema, and right upper quadrant pain. She was treated for CHF and pneumonia. She had iron deficiency anemia. She had acute cholecystitis. She ended up with a laparoscopic cholecystectomy on 08/06/2015 with the finding of a gangrenous gallbladder. She developed ADDY due to sepsis. She was diuresed with Lasix. She was put on long-term antifungal antibiotics. She apparently has not had any further issues with congestive heart failure. It does not appear that she had cardiac catheterization or stress testing at that time or since then. An echocardiogram showed mild LVH with normal LV systolic function, abnormal diastolic function, thickening of th AV, mild to moderate MR, mildly dilated LA, PAP borderline elevated, dilated IVC. Since her initial hospital visit she has been hospitalized at [place] several times. The first time was on 01/19/17 when she presented with severe hypertension, shortness of breath, and acute renal failure. Echocardiogram was done and showed moderate LVH with normal ejection fraction, right ventricular systolic pressure at 40 mmHg. She was in the hospital for a number of days and discharged. She was readmitted on 03/15/2017 again with hypertension, shortness of breath, and significant edema. She had significant pulmonary congestion. Her medications were adjusted. Her creatinine olga to 5.2 due to contrast induced nephropathy and subsequently came down to the 1.5 range on discharge. It was thought that some of her issues were due to medication noncompliance. She also probably had GI bleeding with guaiac positive stools and she was given 3 units of blood. She was recommended outpatient GI followup. Her troponins were negative on this admissions. Her medications were adjusted to hydralazine 100 mg 3 times a day, lisinopril 40 mg daily, Lasix 40 mg daily, fenofibrate, pravastatin 40 mg daily, aspirin, and her diabetic regimen. Subsequently I saw her in the office on 04/12/2017 at which time she was doing better. She is having only mild edema at that time. In mid May has developed increasing shortness of breath and edema and finally came to the emergency room. She was found to be in congestive heart failure and was started on IV Lasix. She was also severely anemic with a hemoglobin of 6.6 and a hematocrit of 21. She did not describe GI bleeding or any GI symptoms. She did not have any chest pain. Her troponins were negative and her EKG did not show any ischemic changes. Her echo showed LVH with good systolc function. PAP was slightly elevated at 35-40 mm Hg. She was diuresed and transfused and discharged. I have not seen her in the office since then. The patient now presents again with increasing shortness of breath and edema. She was found again to be anemic and also now hyperkalemic although her renal function is about at her baseline. Her troponins are negative 3 and her EKG does not show any significant abnormalities. She is feeling better after some diuretic and transfusion. Again she did not complain of chest pain. Allergies/Medications Allergies: Coded Allergies: No Known Allergies (09/01/15) Home Med List: Albuterol Sulfate (Proair Hfa) 90 MCG HFA.AER.AD 2 PUF INH Q4 BREATHING PROBLEMS Albuterol Sulfate 2.5 MG/3 ML (0.083 %) VIAL.NEB 3 ML INH Q4-6 PRN PRN SHORTNESS OF BREATH . Amlodipine Besylate (Norvasc) 10 MG TABLET 10 MG PO DAILY blood pressure .. Aspirin (Ecotrin*) 81 MG TABLET.DR 1 TAB PO DAILY HEART HEALTH Carvedilol 25 MG TABLET 25 MG PO BID blood pressure .. Diphenoxylate HCl/Atropine (Lomotil 2.5-0.025 MG Tablet) 2.5 MG-0.025 MG TABLET 2 TAB PO DAILY DIARRHEA (Reported) Epoetin Elia (Procrit) 20,000 UNIT/ML VIAL 15,000 U SC QSUN anemia .. Fenofibrate (Tricor) 48 MG TABLET 1 TAB PO DAILY CHOLESTEROL Ferrous Sulfate 325 MG (65 MG IRON) TABLET.DR 325 MG PO DAILY supplement take 1 tab twice a day. Fluticasone/Salmeterol (Advair 250-50 Diskus) 250 MCG-50 MCG/DOSE BLST.W.DEV 1 PUF INH BID BREATHING PROBLEMS Furosemide (Lasix) 40 MG TABLET 1 TAB PO DAILY WATER RETENTION Hydralazine HCl 100 MG TABLET 1 TAB PO TID BLOOD PRESSURE take 1 tab three times a day.. Hydroxyzine Hydrochloride (Atarax) 25 MG TABLET 1 TAB PO BID UNKNOWN ( Reported) Insulin Aspart (Novolog) 100 UNIT/ML VIAL 0 UNITS SC TIDAC diabetes sugar unit <150 0 151-200 4 201-250 6 251-300 8 301-350 10 351-400 12 >400 14, call Insulin Detemir (Levemir) 100 UNIT/ML VIAL 14 UNITS SC AT BEDTIME diabetes .. Lisinopril 40 MG TABLET 1 TAB PO DAILY blood pressure . Nepafenac (Ilevro) 0.3 % DROPS.SUSP EYE (Reported) Nicotine (Nicotine Patch) 14 MG/24 HOUR PATCH.TD24 1 PAT TD DAILY smoking cessation Oxycodone HCl/Acetaminophen (Percocet 7.5-325 MG Tablet) 7.5 MG-325 MG TABLET 1 TAB PO 4 TIMES/DAY PRN PAIN (Reported) Pantoprazole Sodium (Protonix) 40 MG TABLET.DR 1 TAB PO DAILY ACID REFLUX Pravastatin Sodium (Pravachol) 40 MG TABLET 1 TAB PO DAILY CHOLESTEROL Pregabalin (Lyrica) 50 MG CAPSULE 1 CAP PO TID PAIN (Reported) Trazodone HCl 150 MG TABLET 1 TAB PO QPM SLEEP (Reported) Current Medications: Current Medications Sig/Jannet Start time Last Medication Dose Route Stop Time Status Admin Albuterol Sulfate 2 PUF Q4 07/04 1800 AC 07/05 INH 0918 Albuterol Sulfate 3 ML Q4-6 PRN PRN 07/04 1630 AC INH Amlodipine Besylate 10 MG DAILY 07/04 1621 AC 07/05 PO 0912 Aspirin Buffered 81 MG DAILY 07/05 1000 AC 07/05 PO 09 Budesonide/ 2 PUF BID 07/04 2199 AC 07/05 Formoterol Fumarate INH 912 Calcium Gluconate 0 .STK-MED ONE 07/04 1500 DC IV Calcium Gluconate 1 GM ONCE ONE 07/04 1430 DC 07/04 Sodium Chloride 100 ML IV 07/04 1529 1521 Carvedilol 25 MG BID 07/04 2199 AC 07/05 PO 0912 Dextrose 0 .STK-MED ONE 07/04 1500 DC IV Dextrose 25 GM ONCE ONE 07/04 1445 DC 07/04 IV 07/04 1446 1521 Diphenhydramine HCl 25 MG ONCE ONE 07/05 0145 DC 07/05 IV 07/05 0146 0147 Diphenoxylate HCl/ 2.5 MG DAILY NEEDED PRN 07/04 1630 AC Atropine PO Fenofibrate 48 MG DAILY 07/04 1623 AC 07/05 PO 0912 Ferrous Sulfate 325 MG DAILY 07/04 1623 AC 07/05 PO 0912 Furosemide 40 MG DAILY 07/04 1653 AC 07/04 IV 2049 Hydralazine HCl 100 MG TID 07/04 1624 AC 07/05 PO 0912 Insulin Detemir 14 UNITS AT BEDTIME 07/04 2200 AC 07/05 SC 0515 Insulin Human Regular 10 UNITS ONCE ONE 07/04 1445 DC 07/04 IV 07/04 1446 1521 Nitroglycerin 0 .STK-MED ONE 07/04 1504 DC TOP Nitroglycerin 1 GM ONCE ONE 07/04 1500 DC 07/04 TOP 07/04 1501 1521 Oxycodone/ 2 TAB Q4P PRN 07/04 2100 AC 07/05 Acetaminophen PO 0912 Pravastatin Sodium 40 MG 1700 07/04 1700 AC 07/04 PO 2049 Sodium Polystyrene 0 .STK-MED ONE 07/04 1500 DC Sulfonate .ROUTE Sodium Polystyrene 60 ML ONCE ONE 07/04 1445 DC 07/04 Sulfonate PO 07/04 1446 1521 Review of Systems Review of Systems: She has no other complaints in the review of systems at this time Past History Travel History Traveled to [place] past 21 day No Medical History Blood Transfusion Hx: Yes Neurological: NONE EENT: cataracts Cardiovascular: CHF, hypertension, hyperlipidemia Respiratory: COPD, pneumonia Gastrointestinal: NONE, iron deficiency anemia chronic, intermittent diarrhea Hepatic: NONE Renal: NONE Musculoskeletal: falls, osteoporosis Psychiatric: NONE Endocrine: diabetes Blood Disorders: anemia Cancer(s): 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 Home Services at Home: None Smoking Status: Current Everyday Smoker ETOH Use: denies use Illicit Drug Use: NONE Exam & Diagnostic Data Vital Signs and I&O Vital Signs Date Time Temp Pulse Resp B/P B/P Pulse O2 O2 Flow FiO2 Mean Ox Delivery Rate 07/05 911 74 160/68 07/05 09 74 160/68 07/05 09 74 160/68 07/05 0700 98.7 74 22 160/68 94 07/05 0210 83 186/74 07/05 0209 83 186/74 07/04 2344 98.9 68 26 160/82 91 Nasal 2.0L Cannula 07/04 2053 158/84 07/04 2052 82 158/84 07/04 1950 Nasal 2.0L Cannula 07/04 1844 98.7 76 30 160/82 90 Nasal 2.0L Cannula 07/04 1756 98.6 74 20 156/72 97 Nasal 2.0L Cannula 07/04 1539 Nasal 2.0L Cannula 07/04 1513 98.8 68 18 167/69 99 Room Air 07/04 1328 98.5 73 18 117/71 90 Room Air Intake & Output 07/05 1600 07/05 0800 07/05 0000 07/04 1600 07/04 0800 07/04 0000 Intake Total 590 484 100 Output Total 550 Balance 40 484 100 Intake, Blood 350 350 Product Intake, IV 14 100 Intake, Oral 240 120 0 Output, Urine 550 Patient 190 lb 185 lb 184 lb Weight Weight Chair scale Reported by Patient Reported by Patient Measurement Method Physical Exam: This is an obese middle-aged -[place] female in no acute distress HEENT exam is normal Neck veins not distended Carotids no bruits Chest is clear Heart regular rhythm, soft heart sounds, no murmurs Extremities 1+ edema on the left and trace edema on the right Labs/Olu Results: Laboratory Tests 07/05 07/05 07/04 0909 0310 2014 Chemistry Sodium Pending Potassium (3.5 - 5.1 mmol/L) Pending 5.6 H Chloride Pending Carbon Dioxide Pending Anion Gap Pending BUN Pending Creatinine Pending BUN/Creatinine Ratio Pending Troponin I (< 0.11 ng/ml) 0.01 0.01 Hematology CBC w Diff Pending MAN DIFF ORDERED WBC (4.8 - 10.8 /CUMM) Pending 10.4 RBC (4.20 - 5.40 /CUMM) Pending 2.83 L Hgb (12.0 - 16.0 G/DL) Pending 7.9 L Hct (37 - 47 %) Pending 25.6 L MCV (81.0 - 99.0 FL) Pending 90.4 MCH (27.0 - 31.0 PG) Pending 27.9 RDW (11.5 - 14.5 %) Pending 17.5 H Plt Count (130 - 400 /CUMM) Pending 442 H MPV (7.4 - 10.4 FL) Pending 7.6 Gran % (42.2 - 75.2 %) 78.0 H Lymphocytes % (20.5 - 51.1 %) 11.7 L Monocytes % (1.7 - 9.3 %) 9.1 Eosinophils % (0 - 5 %) 1.1 Basophils % (0.0 - 2.0 %) 0.1 Absolute Granulocytes (1.4 - 6.5 /CUMM) 8.2 H Segmented Neutrophils (42.2 - 75.2 %) 78 H Absolute Lymphocytes (1.2 - 3.4 /CUMM) 1.2 Lymphocytes (20.5 - 51.1 %) 11 L Monocytes (1.7 - 9.3 %) 8 Absolute Monocytes (0.10 - 0.60 /CUMM) 1.0 H Eosinophils (0 - 5.0 %) 2 Absolute Eosinophils (0.0 - 0.7 /CUMM) 0.1 Basophils (0.0 - 2.0 %) 1 Absolute Basophils (0.0 - 0.2 /CUMM) 0 Nucleated RBCs (0.0 - 0.0 /100WBC) 3 H Platelet Estimate (ADEQUATE) INCREASED Polychromasia 2+ Hypochromic-Microcytic 2+ Poikilocytosis 1+ Basophilic Stippling SLIGHT Ovalocytes 1+ PUBS MCHC (33.0 - 37.0 G/DL) Pending 30.8 L Other Body Source Fld Total RBCs Counted (%) 100 07/04 07/04 1730 1338 Chemistry Sodium (137 - 145 mmol/L) 143 142 Potassium (3.5 - 5.1 mmol/L) 5.7 H 6.5 *H Chloride (98 - 107 mmol/L) 110 H 110 H Carbon Dioxide (22 - 30 mmol/L) 23 25 Anion Gap (5 - 16) 10 8 BUN (7 - 17 mg/dL) 34 H Creatinine (0.5 - 1.0 mg/dL) 2.0 H Estimated GFR (>60 ml/min) 26 L BUN/Creatinine Ratio (7 - 25 %) 17.0 Glucose (65 - 99 mg/dL) 171 H Calcium (8.4 - 10.2 mg/dL) 8.0 L Iron (37 - 170 ug/dL) 188 H TIBC (265 - 497 ug/dL) 368 Ferritin (11.1 - 264 ng/mL) 11.1 Total Bilirubin (0.2 - 1.3 mg/dL) < 0.1 L AST (14 - 36 U/L) 15 ALT (9 - 52 U/L) 29 Alkaline Phosphatase (<127 U/L) 42 Troponin I (< 0.11 ng/ml) < 0.01 Ijo-L-Vfvfwjbiode Pept (<125 pg/mL) 1060 H Total Protein (6.3 - 8.2 g/dL) 5.6 L Albumin (3.5 - 5.0 g/dL) 2.9 L Globulin (1.9 - 4.2 gm/dL) 2.7 Albumin/Globulin Ratio (1.1 - 2.2 %) 1.1 Coagulation PT (9.4 - 12.5 SEC) 11.0 INR (0.90 - 1.19) 1.05 APTT (25 - 37 SEC) 28 Hematology CBC w Diff NO MAN DIFF REQ WBC (4.8 - 10.8 /CUMM) 8.4 RBC (4.20 - 5.40 /CUMM) 2.25 L Hgb (12.0 - 16.0 G/DL) 6.1 *L Hct (37 - 47 %) 20.5 L MCV (81.0 - 99.0 FL) 91.1 MCH (27.0 - 31.0 PG) 27.0 RDW (11.5 - 14.5 %) 18.6 H Plt Count (130 - 400 /CUMM) 448 H MPV (7.4 - 10.4 FL) 7.8 Gran % (42.2 - 75.2 %) 81.0 H Lymphocytes % (20.5 - 51.1 %) 10.1 L Monocytes % (1.7 - 9.3 %) 6.8 Eosinophils % (0 - 5 %) 0.8 Basophils % (0.0 - 2.0 %) 1.3 Absolute Granulocytes (1.4 - 6.5 /CUMM) 6.8 H Absolute Lymphocytes (1.2 - 3.4 /CUMM) 0.9 L Absolute Monocytes (0.10 - 0.60 /CUMM) 0.6 Absolute Eosinophils (0.0 - 0.7 /CUMM) 0.1 Absolute Basophils (0.0 - 0.2 /CUMM) 0.1 PUBS MCHC (33.0 - 37.0 G/DL) 29.6 L Diagnostic Data EKG Results EKG shows sinus rhythm at a rate of 80 and is within normal limits. Repeat EKG was unchanged. CXR Results PATIENT: ORLIN FERNANDEZ PRESENT AGE: 61 PATIENT ACCOUNT NO: [id number] : 59 LOCATION: [facility] ORDERING PHYSICIAN: Asia Badillo MD SERVICE DATE: 07/04/17 EXAM TYPE: RAD - XRY-PORTABLE CHEST XRAY EXAMINATION: CHEST 1 VIEW CLINICAL INFORMATION: Shortness of breath, chest pain. COMPARISON: 06/04/2017. TECHNIQUE: An AP view of the chest is provided. FINDINGS: The cardiac silhouette is enlarged, but stable. There is right lower lobe airspace disease with obscuration the right hemidiaphragm. The osseous structures are stable. IMPRESSION: Right lower lobe airspace disease concerning for developing infiltrate. Consider correlation with a lateral view for further characterization. Stable cardiomegaly. DICTATED BY: Everett Benton MD DATE/TIME DICTATED:07/04/171507 CLAIMS COUNSEL:NIKI DATE/TIME TRANSCRIBED:07/04/171507 CONFIDENTIAL, DO NOT COPY WITHOUT APPROPRIATE AUTHORIZATION. <Electronically signed in Other Vendor System> SIGNED BY: Everett Benton MD 07/04/17 0032 Assessment/Plan Assessment/Plan The patient presents with shortness of breath, recurrent anemia and some edema. She is a little bit volume overloaded and should be diuresed but we need to watch her BUN and creatinine carefully to avoid over diuresis. There is no evidence of myocardial ischemia or arrhythmias and I think she can come off telemetry. Renal and hematology consultations would be useful. I would continue most of her antihypertensive medications except of course for lisinopril because of the hyperkalemia. Adjustments to the other medications can be made if her blood pressure continues to be elevated. Consult Acknowledgment - Thank you for your consult request.
--- NOTE | 2017-07-05 09:43 | RADIOLOGY REPORT ---
EXAMINATION: XR CHEST CLINICAL INFORMATION: Shortness of breath. COMPARISON: Chest radiograph 06/04/2017 and 07/04/2017. TECHNIQUE: 2 views of the chest were obtained. FINDINGS: Patient's breasts and overlying soft tissues limit evaluation of the mid and lower chest particularly on the left side. A developing infiltrate or pleural effusion on the left is not excluded on the basis of this exam. Suspect right pleural effusion. There is vascular congestion and the cardiac silhouette remains enlarged. IMPRESSION: Possible developing pulmonary opacity or left pleural effusion versus overlying soft tissues. Suspect small right pleural effusion. Recommend follow-up PA upright chest radiograph if possible. Chest ultrasound may be of utility.
--- NOTE | 2017-07-05 11:41 | PN- Housestaff ---
Neel WILLIAMSON,Amber 07/05/17 1141: Subjective Follow-up For: Anemia Hyperkalemia Chronic kidney disease Diabetes CHF Subjective: Patient states that she feels okay but is having a little bit of trouble breathing when she lays down flat. Review of Systems Constitutional: Reports: no symptoms. Respiratory: Reports: orthopnea. Objective Last 24 Hrs of Vital Signs/I&O Vital Signs Date Time Temp Pulse Resp B/P B/P Pulse O2 O2 Flow FiO2 Mean Ox Delivery Rate 07/05 1702 78 128/88 07/05 1454 98.6 72 22 160/70 92 Nasal 2.0L Cannula 07/05 09 74 160/68 07/05 0912 74 160/68 07/05 0912 74 160/68 07/05 0800 94 Nasal 2.0L Cannula 07/05 0700 98.7 74 22 160/68 94 07/05 0210 83 186/74 07/05 0209 83 186/74 07/04 2344 98.9 68 26 160/82 91 Nasal 2.0L Cannula 07/04 2053 158/84 07/04 205 82 158/84 07/04 1950 Nasal 2.0L Cannula Intake & Output 07/05 1600 07/05 0800 07/05 0000 Intake Total 400 590 484 Output Total 550 Balance 400 40 484 Intake, Blood 350 350 Product Intake, IV 0 14 Intake, Oral 400 240 120 Number 0 Bowel Movements Output, Urine 550 Patient 190 lb 185 lb Weight Weight Chair scale Reported by Patient Measurement Method Physical Exam General Appearance: Alert, Oriented X3, Cooperative, No Acute Distress Cardiovascular: Regular Rate, Normal S1, Normal S2, No Murmurs Lungs: Clear to Auscultation, Normal Air Movement Abdomen: Normal Bowel Sounds, Soft, No Tenderness Current Medications: Current Medications Sig/Jannet Start time Last Medication Dose Route Stop Time Status Admin Albuterol Sulfate 2 PUF Q4 07/04 1800 AC 07/05 INH 1715 Albuterol Sulfate 3 ML Q4-6 PRN PRN 07/04 1630 AC INH Amlodipine Besylate 10 MG DAILY 07/04 1621 AC 07/05 PO 0912 Aspirin Buffered 81 MG DAILY 07/05 1000 AC 07/05 PO 0912 Budesonide/ 2 PUF BID 07/04 2199 AC 07/05 Formoterol Fumarate INH 09 Carvedilol 25 MG BID 07/04 2200 AC 07/05 PO 0912 Diphenhydramine HCl 25 MG ONCE ONE 07/05 0145 DC 07/05 IV 07/05 0146 0147 Diphenoxylate HCl/ 2.5 MG DAILY NEEDED PRN 07/04 1630 AC Atropine PO Fenofibrate 48 MG DAILY 07/04 1623 AC 07/05 PO 0912 Ferrous Sulfate 325 MG DAILY 07/04 1623 DC 07/05 PO 0912 Furosemide 40 MG ONCE ONE 07/05 1615 DC 07/05 IV 07/05 1616 1700 Furosemide 40 MG DAILY 07/04 1653 AC 07/05 IV 1139 Hydralazine HCl 100 MG TID 07/04 1624 AC 07/05 PO 1702 Insulin Aspart 0 TIDAC 07/05 1515 AC 07/05 SC 1713 Insulin Detemir 14 UNITS AT BEDTIME 07/04 2200 07/05 SC 0515 Iron Sucrose 200 MG 07/05 AC Sodium Chloride 100 ML IV 07/09 2013 Nicotine 21 MG DAILY 07/05 1730 AC TOP Non-Formulary 0 SEE ADMIN CRITERIA 07/05 161 CAN Medication ANY Oxycodone/ 2 TAB Q4P PRN 07/04 2100 AC 07/05 Acetaminophen PO 0912 Pravastatin Sodium 40 MG 1700 07/04 1700 AC 07/05 PO 1700 Last 24 Hrs of Lab/Olu Results Last 24 Hrs of Labs/Mics: Laboratory Tests 07/05/17 0909: Anion Gap 9, Estimated GFR 27 L, BUN/Creatinine Ratio 16.3, CBC w Diff MAN DIFF ORDERED, RBC 2.93 L, MCV 89.8, MCH 28.0, RDW 17.2 H, MPV 7.6, Gran % 80.0 H, Lymphocytes % 9.7 L, Monocytes % 8.3, Eosinophils % 1.8, Basophils % 0.2, Absolute Granulocytes 9.1 H, Segmented Neutrophils 81 H, Band Neutrophils 1, Absolute Lymphocytes 1.1 L, Lymphocytes 9 L, Monocytes 8, Absolute Monocytes 0.9 H, Absolute Eosinophils 0.2, Absolute Basophils 0, Myelocytes 1 H, Nucleated RBCs 2 H, Platelet Estimate INCREASED, Polychromasia 1+, Hypochromic- Microcytic 2+, Anisocytosis 1+, PUBS MCHC 31.2 L 07/05/17 0310: Troponin I 0.01, CBC w Diff MAN DIFF ORDERED, RBC 2.83 L, MCV 90.4, MCH 27.9, RDW 17.5 H, MPV 7.6, Gran % 78.0 H, Lymphocytes % 11.7 L, Monocytes % 9.1, Eosinophils % 1.1, Basophils % 0.1, Absolute Granulocytes 8.2 H, Segmented Neutrophils 78 H, Absolute Lymphocytes 1.2, Lymphocytes 11 L, Monocytes 8, Absolute Monocytes 1.0 H, Eosinophils 2, Absolute Eosinophils 0.1, Basophils 1, Absolute Basophils 0, Nucleated RBCs 3 H, Platelet Estimate INCREASED, Polychromasia 2+, Hypochromic-Microcytic 2+, Poikilocytosis 1+, Basophilic Stippling SLIGHT, Ovalocytes 1+, PUBS MCHC 30.8 L, Fld Total RBCs Counted 100 07/04/172014: Troponin I 0.01 Assessment/Plan Assessment: Patient is a 61 year old woman with a pmh significant for COPD not on home oxygen, CHF, HLD, HTN, osteoporesis, DM, hepatitis c s/p Diogenesoni in 2012, chronic lower extremity edema for 1.5 years, smoker, chronic diarrhea since cholecystectomy in 2014, that comes to see us with a chief complaint of exertional chest pain and shortness of breath for 3-4 days and a dry cough. She was found to have a hemoglobin of 6.5 and potassium of 6.1. Patient has been seen by us previously and has been worked up for anemia with a colonoscopy and endoscopy with a PillCam planned for June and is on Procrit and iron. The patient's last echocardiogram was mostly normal with an ejection fraction of 65% and some mitral annular calcification. The patient usually takes Lasix 40 mg for her chronic lower leg edema. She has also been seen by us before for a CHF exacerbation. Patient denies being on potassium pills or any other type of vitamin. In the ED the patient had temperature 98.5, heart rate 73, respiratory rate 18, blood pressure 117/71, 90% oxygen saturation on room air which increased to 99% saturation on next reading. Chest x-ray showed a right lower lobe infiltrate. EKG showed a rate of 74, QTC 462, normal sinus rhythm with no T-wave peaking in a normal QRS. Labs showed WBC count 8.4, hemoglobin 6.1, potassium of 6.5, creatinine of 2.0, troponins negative. Please note patient's creatinine is at her baseline. Today, patient's hemoglobin is better and her potassium has decreased to 5.7. When examined she was on 2.5 L of oxygen, had no chest pain and a little bit of shortness of breath on lying down. She has received 2 units of blood total. Flu swab yesterday was negative. Iron studies showed a high iron and borderline low ferritin. Plan Continue patient on aspirin, Coreg, hydralazine, Norvasc her blood pressure and CAD Hold patient lisinopril for elevated potassium level Follow-up urine cultures for patient's urinary frequency. As per Dr. Jackman we can DC telemetry As per Dr. Pisano nephrology, we will give an extra dose of 40 mg IV Lasix today and continue tomorrow. Patient takes 40 mg by mouth of Lasix at home. We will also start the patient on iron sucrose secondary to her low ferritin stores. We will give 200 mg IV a day for 5 days. We have placed a consult with hematology for her chronic anemia although she has been worked up by gastroenterology. We gave a courtesy call to Dr. Hdz who has worked her up for anemia but the last he left off was that he suggested PillCam which she has not yet done. EKG and troponins negative We will start patient's diabetic medications of log and Levemir cnt patients statin and TriCor Lomotil for her chronic diarrhea we are not treating patient for pneumonia even though infiltrate was seen. Patient has normal WBCs, no fever, no signs of infection. P chest x-ray showed possible developing pulmonary opacity of left pleural effusion versus underlying soft tissues, suspect small right pleural effusion. full code Problem List: 1. Chronic kidney disease 2. Hyperkalemia 3. Fluid overload 4. Type 2 diabetes mellitus 5. Hypertension 6. Anemia Pain Ratin Pain Location: generalized Pain Goal: Pain 4 or less Pain Plan: pain pathway Tomorrow's Labs & Rationales: bep Nhan Richards 07/05/17 1732: Attending MD Review Statement Attending Statement Attending MD Statement: examined this patient, discuss w/resident/PA/TIP CUTTER, agreed w/resident/PA/TIP CUTTER, reviewed EMR data (avail), discussed with nursing, discussed with case mgmt Attending Assessment/Plan: 61 yr old female with pmh of copd( current acitve smoker ), CHF-diastolic, DM, HCV s/p treatment in 2013, CKD with basline creatinine around 2 admitted with c/ c of sob and worsening leg edema for last few days. Pt says she is using 3 pillows instead of 2 over the last few days. Pt also has h/o anemia for which she had workup with EGD and Colonoscopy which showed atrophic gastritis but no active source of her anemia and she is currently scheduled for Pillcam in next 1-2 weeks as an outpatient. Acute diastolic chf- cnot on lasix 40mg iv daily, cardiology input appreciated. Anemia acute blood loss- got 2 U PRBC , hb post transfusion up to 7.9. cont to monitor. will get nephrology consult and heme/onc consult. Pt currently getting epogen through [facility] at home. Stopped iron supplementation as her serum iron level is high. Hyperkalemia- better and down to 5.6. will f/u on repeat K.
[2017-07-05 14:54] VITALS: BP 160/70
--- NOTE | 2017-07-05 15:40 | Cons- Nephrology ---
General Information and HPI Consulting Request Date of Consult: 07/05/17 Requested By: Alisson WILLIAMSON,Nhan Begum Source of Information: patient, old records Exam Limitations: no limitations History of Present Illness: This 61-year-old woman has a history of diabetes going back several years. She is well-known to the nephrology service, she has chronic kidney disease likely on the basis of her diabetes and hypertension. She also is followed by Constantine Natarajan MD in the office. She now presents with lower extremity swelling as well as finding hyperkalemia. She was on lisinopril 40 mg a day. She also describes what seems to be a symptom consistent with paroxysmal nocturnal dyspnea. She describes choking sensation which awakens her at night. It feels better when she sits up. Otherwise, she feels somewhat better since coming in the hospital. Allergies/Medications Allergies: Coded Allergies: No Known Allergies (09/01/15) Home Med List: Albuterol Sulfate (Proair Hfa) 90 MCG HFA.AER.AD 2 PUF INH Q4 BREATHING PROBLEMS Albuterol Sulfate 2.5 MG/3 ML (0.083 %) VIAL.NEB 3 ML INH Q4-6 PRN PRN SHORTNESS OF BREATH . Amlodipine Besylate (Norvasc) 10 MG TABLET 10 MG PO DAILY blood pressure .. Aspirin (Ecotrin*) 81 MG TABLET.DR 1 TAB PO DAILY HEART HEALTH Carvedilol 25 MG TABLET 25 MG PO BID blood pressure .. Diphenoxylate HCl/Atropine (Lomotil 2.5-0.025 MG Tablet) 2.5 MG-0.025 MG TABLET 2 TAB PO DAILY DIARRHEA (Reported) Epoetin Elia (Procrit) 20,000 UNIT/ML VIAL 15,000 U SC QSUN anemia .. Fenofibrate (Tricor) 48 MG TABLET 1 TAB PO DAILY CHOLESTEROL Ferrous Sulfate 325 MG (65 MG IRON) TABLET. 325 MG PO DAILY supplement take 1 tab twice a day. Fluticasone/Salmeterol (Advair 250-50 Diskus) 250 MCG-50 MCG/DOSE BLST.W.DEV 1 PUF INH BID BREATHING PROBLEMS Furosemide (Lasix) 40 MG TABLET 1 TAB PO DAILY WATER RETENTION Hydralazine HCl 100 MG TABLET 1 TAB PO TID BLOOD PRESSURE take 1 tab three times a day.. Hydroxyzine Hydrochloride (Atarax) 25 MG TABLET 1 TAB PO BID UNKNOWN ( Reported) Insulin Aspart (Novolog) 100 UNIT/ML VIAL 0 UNITS SC TIDAC diabetes sugar unit <150 0 151-200 4 201-250 6 251-300 8 301-350 10 351-400 12 >400 14, call Insulin Detemir (Levemir) 100 UNIT/ML VIAL 14 UNITS SC AT BEDTIME diabetes .. Lisinopril 40 MG TABLET 1 TAB PO DAILY blood pressure . Nepafenac (Ilevro) 0.3 % DROPS.SUSP EYE (Reported) Nicotine (Nicotine Patch) 14 MG/24 HOUR PATCH.TD24 1 PAT TD DAILY smoking cessation Oxycodone HCl/Acetaminophen (Percocet 7.5-325 MG Tablet) 7.5 MG-325 MG TABLET 1 TAB PO 4 TIMES/DAY PRN PAIN (Reported) Pantoprazole Sodium (Protonix) 40 MG TABLET.DR 1 TAB PO DAILY ACID REFLUX Pravastatin Sodium (Pravachol) 40 MG TABLET 1 TAB PO DAILY CHOLESTEROL Pregabalin (Lyrica) 50 MG CAPSULE 1 CAP PO TID PAIN (Reported) Trazodone HCl 150 MG TABLET 1 TAB PO QPM SLEEP (Reported) Current Medications: Current Medications Sig/Jannet Start time Last Medication Dose Route Stop Time Status Admin Albuterol Sulfate 2 PUF Q4 07/04 1800 AC 07/05 INH 0918 Albuterol Sulfate 3 ML Q4-6 PRN PRN 07/04 1630 AC INH Amlodipine Besylate 10 MG DAILY 07/04 1621 AC 07/05 PO 0912 Aspirin Buffered 81 MG DAILY 07/05 1000 AC 07/05 PO 0912 Budesonide/ 2 PUF BID 07/04 2200 AC 07/05 Formoterol Fumarate INH 0913 Carvedilol 25 MG BID 07/04 2200 AC 07/05 PO 0912 Diphenhydramine HCl 25 MG ONCE ONE 07/05 0145 DC 07/05 IV 07/05 0146 0147 Diphenoxylate HCl/ 2.5 MG DAILY NEEDED PRN 07/04 1630 AC Atropine PO Fenofibrate 48 MG DAILY 07/04 1623 AC 07/05 PO 0912 Ferrous Sulfate 325 MG DAILY 07/04 1623 DC 07/05 PO 0912 Furosemide 40 MG DAILY 07/04 1653 AC 07/05 IV 1139 Hydralazine HCl 100 MG TID 07/04 1624 AC 07/05 PO 0912 Insulin Aspart 0 TIDAC 07/05 1515 AC SC Insulin Detemir 14 UNITS AT BEDTIME 07/04 2200 AC 07/05 SC 0515 Oxycodone/ 2 TAB Q4P PRN 07/04 2100 AC 07/05 Acetaminophen PO 0912 Pravastatin Sodium 40 MG 1700 07/04 1700 AC 07/04 PO 2049 Review of Systems Review of Systems Constitutional: Reports: chills, malaise, weakness. Denies: fever, unexplained weight loss. EENTM: Reports: blurred vision, epistaxis. Denies: double vision, nasal congestion. Cardiovascular: Reports: orthopena (seems to be describing paroxys). Denies: chest pain, edema. Respiratory: Reports: orthopnea. Denies: cough, hemoptysis, short of breath, sputum production. GI: Denies: bloating, constipation, diarrhea, melena, nausea. Genitourinary: Denies: dysuria, frequency, hematuria, hesitation, nocturia, pain. Musculoskeletal: Denies: joint pain, joint swelling. Skin: Denies: change in hair/nails, dryness, erythema, jaundice. Hematologic/Endocrine: Denies: bruising, bleeding, polyuria. 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 Home Services at Home: None Smoking Status: Current Everyday Smoker ETOH Use: denies use Illicit Drug Use: NONE Exam & Diagnostic Data Vital Signs and I&O Vital Signs Date Time Temp Pulse Resp B/P B/P Pulse O2 O2 Flow FiO2 Mean Ox Delivery Rate 07/05 1454 98.6 72 22 160/70 92 Nasal 2.0L Cannula 07/05 911 74 160/68 07/05 0912 74 160/68 07/05 911 74 160/68 07/05 0800 94 Nasal 2.0L Cannula 07/05 0700 98.7 74 22 160/68 94 07/05 0210 83 186/74 07/05 0209 83 186/74 07/04 2344 98.9 68 26 160/82 91 Nasal 2.0L Cannula 07/04 2054 158/84 07/04 205 82 158/84 07/04 1950 Nasal 2.0L Cannula 07/04 1844 98.7 76 30 160/82 90 Nasal 2.0L Cannula 07/04 1756 98.6 74 20 156/72 97 Nasal 2.0L Cannula Intake & Output 07/05 1600 07/05 0400 07/04 1600 07/04 0400 07/03 1600 07/03 0400 Intake Total 990 484 100 Output Total 550 Balance 440 484 100 Intake, Blood 350 350 Product Intake, IV 0 14 100 Intake, Oral 640 120 0 Number 0 Bowel Movements Output, Urine 550 Patient 190 lb 185 lb 184 lb Weight Weight Chair scale Reported by Patient Reported by Patient Measurement Method Physical Exam General Appearance: well developed/nourished, no apparent distress, alert, awake Head: atraumatic, normal appearance Eyes: Bilateral: PERRL, EOMI, pale conjunctivae. Ears, Nose, Throat: normal pharynx, hearing grossly normal Neck: normal inspection, supple, trachea mid line Respiratory: normal breath sounds, chest non-tender, lungs clear Cardiovascular: edema Gastrointestinal: normal bowel sounds, soft, non-tender Back: normal inspection, normal range of motion, no vertebral tenderness Extremities: swelling, left greater than right Neurologic/Psych: no motor/sensory deficits, awake, alert, oriented x 3 Skin: intact, normal color Results Imaging/Other Studies: PATIENT: ORLIN FERNANDEZ PRESENT AGE: 61 PATIENT ACCOUNT NO: [id number] : 59 LOCATION: [facility] ORDERING PHYSICIAN: Yeimi Smiley MD SERVICE DATE: 07/05/17 EXAM TYPE: RAD - XRY-CHEST XRAY, TWO VIEWS EXAMINATION: XR CHEST CLINICAL INFORMATION: Shortness of breath. COMPARISON: Chest radiograph 06/04/2017 and 07/04/2017. TECHNIQUE: 2 views of the chest were obtained. FINDINGS: Patient's breasts and overlying soft tissues limit evaluation of the mid and lower chest particularly on the left side. A developing infiltrate or pleural effusion on the left is not excluded on the basis of this exam. Suspect right pleural effusion. There is vascular congestion and the cardiac silhouette remains enlarged. IMPRESSION: Possible developing pulmonary opacity or left pleural effusion versus overlying soft tissues. Suspect small right pleural effusion. Recommend follow-up PA upright chest radiograph if possible. Chest ultrasound may be of utility. 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 <Electronically signed in Other Vendor System> SIGNED BY: Gustavo Soni MD 07/05/17942 Assessment/Plan Assessment/Recommendations Assessment: 1. Hyperkalemia. She denies cynthia dietary indiscretion. Keep in mind, she was on 40 mg a day of lisinopril. She also reports that she had increased swelling in both lower extremities along with what seems to be almost orthopnea. She reports a choking sensation that gets better when she sits up. 2. Congestive heart failure. Her lungs sound clear but a chest x-ray peripheral exam are consistent with fluid overload. Would favor giving an additional dose of furosemide tonight and follow strict intakes and outputs 3. Chronic kidney disease felt to be due to diabetes and hypertension. For history of hep C for which she was treated with Harvoni Recommendations: 1. Hold the lisinopril for now. 2. Would give an additional 40 of furosemide. 3. She may benefit from getting Venofer. Her iron is high however her ferritin is very low. Would favor giving Venofer 200 mg IV daily 5 days. 4. She had been receiving Procrit. Until her iron surgery's are clean, giving Procrit is somewhat pointless.
[2017-07-05 23:51] VITALS: BP 180/80
[2017-07-06 05:54] VITALS: BP 150/80
--- NOTE | 2017-07-06 07:21 | Cons- Hematology ---
General Information and HPI Consulting Request Date of Consult: 07/06/17 Requested By: Alisson WILLIAMSON,Nhan Begum History of Present Illness: 61-year-old woman who I recently met at [facility] for iron deficiency in the setting of GI bleeding and mild renal insufficiency. Patient was placed on oral iron. She now returns to the hospital with shortness of breath and was found to markedly anemic and demonstrating metabolic abnormality. She has received red cell transfusions and now feels much improved. She has had dark stool but has been taking oral iron. Allergies/Medications Allergies: Coded Allergies: No Known Allergies (09/01/15) Home Med List: Albuterol Sulfate (Proair Hfa) 90 MCG HFA.AER.AD 2 PUF INH Q4 BREATHING PROBLEMS Albuterol Sulfate 2.5 MG/3 ML (0.083 %) VIAL.NEB 3 ML INH Q4-6 PRN PRN SHORTNESS OF BREATH . Amlodipine Besylate (Norvasc) 10 MG TABLET 10 MG PO DAILY blood pressure .. Aspirin (Ecotrin*) 81 MG TABLET.DR 1 TAB PO DAILY HEART HEALTH Carvedilol 25 MG TABLET 25 MG PO BID blood pressure .. Diphenoxylate HCl/Atropine (Lomotil 2.5-0.025 MG Tablet) 2.5 MG-0.025 MG TABLET 2 TAB PO DAILY DIARRHEA (Reported) Epoetin Elia (Procrit) 20,000 UNIT/ML VIAL 15,000 U SC QSUN anemia .. Fenofibrate (Tricor) 48 MG TABLET 1 TAB PO DAILY CHOLESTEROL Ferrous Sulfate 325 MG (65 MG IRON) TABLET. 325 MG PO DAILY supplement take 1 tab twice a day. Fluticasone/Salmeterol (Advair 250-50 Diskus) 250 MCG-50 MCG/DOSE BLST.W.DEV 1 PUF INH BID BREATHING PROBLEMS Furosemide (Lasix) 40 MG TABLET 1 TAB PO DAILY WATER RETENTION Hydralazine HCl 100 MG TABLET 1 TAB PO TID BLOOD PRESSURE take 1 tab three times a day.. Hydroxyzine Hydrochloride (Atarax) 25 MG TABLET 1 TAB PO BID UNKNOWN ( Reported) Insulin Aspart (Novolog) 100 UNIT/ML VIAL 0 UNITS SC TIDAC diabetes sugar unit <150 0 151-200 4 201-250 6 251-300 8 301-350 10 351-400 12 >400 14, lily WILLIAMSON Insulin Detemir (Levemir) 100 UNIT/ML VIAL 14 UNITS SC AT BEDTIME diabetes .. Lisinopril 40 MG TABLET 1 TAB PO DAILY blood pressure . Nepafenac (Ilevro) 0.3 % DROPS.SUSP EYE (Reported) Nicotine (Nicotine Patch) 14 MG/24 HOUR PATCH.TD24 1 PAT TD DAILY smoking cessation Oxycodone HCl/Acetaminophen (Percocet 7.5-325 MG Tablet) 7.5 MG-325 MG TABLET 1 TAB PO 4 TIMES/DAY PRN PAIN (Reported) Pantoprazole Sodium (Protonix) 40 MG TABLET.DR 1 TAB PO DAILY ACID REFLUX Pravastatin Sodium (Pravachol) 40 MG TABLET 1 TAB PO DAILY CHOLESTEROL Pregabalin (Lyrica) 50 MG CAPSULE 1 CAP PO TID PAIN (Reported) Trazodone HCl 150 MG TABLET 1 TAB PO QPM SLEEP (Reported) Current Medications: Current Medications Sig/Jannet Start time Last Medication Dose Route Stop Time Status Admin Albuterol Sulfate 2 PUF Q4 07/04 1800 AC 07/05 INH 2151 Albuterol Sulfate 3 ML Q4-6 PRN PRN 07/04 1630 AC INH Amlodipine Besylate 10 MG DAILY 07/04 1621 AC 07/05 PO 0912 Aspirin Buffered 81 MG DAILY 07/05 1000 AC 07/05 PO 0912 Budesonide/ 2 PUF BID 07/04 2200 AC 07/05 Formoterol Fumarate INH 2152 Carvedilol 25 MG BID 07/04 2200 AC 07/05 PO 2153 Diphenhydramine HCl 25 MG ONCE ONE 07/05 2215 DC 07/05 PO 07/05 2216 2219 Diphenoxylate HCl/ 2.5 MG DAILY NEEDED PRN 07/04 1630 AC Atropine PO Fenofibrate 48 MG DAILY 07/04 1623 AC 07/05 PO 0912 Ferrous Sulfate 325 MG DAILY 07/04 1623 DC 07/05 PO 0912 Furosemide 40 MG ONCE ONE 07/05 1615 DC 07/05 IV 07/05 1616 1700 Furosemide 40 MG DAILY 07/04 1653 AC 07/05 IV 1139 Hydralazine HCl 100 MG TID 07/04 1624 AC 07/05 PO 2154 Insulin Aspart 0 TIDAC 07/05 1515 AC 07/05 SC 1713 Insulin Detemir 14 UNITS AT BEDTIME 07/04 2200 AC 07/05 GA 2152 Iron Sucrose 200 MG 07/05 07/05 Sodium Chloride 100 ML IV 07/09 Nicotine 21 MG DAILY 07/05 173 07/05 TOP 1946 Non-Formulary 0 SEE ADMIN CRITERIA 07/05 1615 CAN Medication ANY Oxycodone/ 2 TAB Q4P PRN 07/04 2100 07/05 Acetaminophen PO 2219 Pravastatin Sodium 40 MG 1700 07/04 1700 07/05 PO 1700 Review of Systems Review of Systems: Patient now denies headaches or dizziness. She denies chest pain or hemoptysis. Patient denies dysuria or hematuria. She denies abdominal pain nausea or vomiting. 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 Home Services at Home: None Smoking Status: Current Everyday Smoker ETOH Use: denies use Illicit Drug Use: NONE Exam & Diagnostic Data Vital Signs and I&O Vital Signs Date Time Temp Pulse Resp B/P B/P Pulse O2 O2 Flow FiO2 Mean Ox Delivery Rate 07/06 0554 98.5 71 20 150/80 92 07/06 0000 Nasal 2.0L Cannula 07/05 2351 97.0 80 20 180/80 91 07/05 215 78 146/80 07/05 215 78 146/80 07/05 1702 78 128/88 07/05 1600 Nasal 2.0L Cannula 07/05 1454 98.6 72 22 160/70 92 Nasal 2.0L Cannula 07/05 09 74 160/68 07/05 0912 74 160/68 07/05 09 74 160/68 07/05 0800 94 Nasal 2.0L Cannula Intake & Output 07/06 0800 07/06 0000 07/05 1600 Intake Total 800 400 Output Total Balance 800 400 Intake, IV 0 Intake, Oral 800 400 Number 0 Bowel Movements Patient 190 lb Weight Weight Chair scale Measurement Method Gen.: in NAD ENT: Sclera anicteric Chest: Normal respiratory effort, decreased breath sounds Cor: RRR, no extra sounds Abdomen: Soft, bowel sounds present, no tenderness, no rebound Extremities: Without clubbing, cyanosis, or asymmetric edema Neurology: Alert and oriented 3, no gross deficit Last 48 Hours of Lab Results: Laboratory Tests 07/06 07/05 0620 0909 Chemistry Sodium (137 - 145 mmol/L) Pending 142 Potassium (3.5 - 5.1 mmol/L) Pending 5.6 H Chloride (98 - 107 mmol/L) Pending 108 H Carbon Dioxide (22 - 30 mmol/L) Pending 25 Anion Gap (5 - 16) Pending 9 BUN (7 - 17 mg/dL) Pending 31 H Creatinine (0.5 - 1.0 mg/dL) Pending 1.9 H Estimated GFR (>60 ml/min) 27 L BUN/Creatinine Ratio (7 - 25 %) Pending 16.3 Hematology CBC w Diff Pending MAN DIFF ORDERED WBC (4.8 - 10.8 /CUMM) Pending 11.4 H RBC (4.20 - 5.40 /CUMM) Pending 2.93 L Hgb (12.0 - 16.0 G/DL) Pending 8.2 L Hct (37 - 47 %) Pending 26.3 L MCV (81.0 - 99.0 FL) Pending 89.8 MCH (27.0 - 31.0 PG) Pending 28.0 RDW (11.5 - 14.5 %) Pending 17.2 H Plt Count (130 - 400 /CUMM) Pending 433 H MPV (7.4 - 10.4 FL) Pending 7.6 Gran % (42.2 - 75.2 %) 80.0 H Lymphocytes % (20.5 - 51.1 %) 9.7 L Monocytes % (1.7 - 9.3 %) 8.3 Eosinophils % (0 - 5 %) 1.8 Basophils % (0.0 - 2.0 %) 0.2 Absolute Granulocytes (1.4 - 6.5 /CUMM) 9.1 H Segmented Neutrophils (42.2 - 75.2 %) 81 H Band Neutrophils (0.0 - 5.0 %) 1 Absolute Lymphocytes (1.2 - 3.4 /CUMM) 1.1 L Lymphocytes (20.5 - 51.1 %) 9 L Monocytes (1.7 - 9.3 %) 8 Absolute Monocytes (0.10 - 0.60 /CUMM) 0.9 H Absolute Eosinophils (0.0 - 0.7 /CUMM) 0.2 Absolute Basophils (0.0 - 0.2 /CUMM) 0 Myelocytes (0 - 0 %) 1 H Nucleated RBCs (0.0 - 0.0 /100WBC) 2 H Platelet Estimate (ADEQUATE) INCREASED Polychromasia 1+ Hypochromic-Microcytic 2+ Anisocytosis 1+ PUBS MCHC (33.0 - 37.0 G/DL) Pending 31.2 L 07/05 1730 Chemistry Sodium (137 - 145 mmol/L) 143 Potassium (3.5 - 5.1 mmol/L) 5.6 H 5.7 H Chloride (98 - 107 mmol/L) 110 H Carbon Dioxide (22 - 30 mmol/L) 23 Anion Gap (5 - 16) 10 Troponin I (< 0.11 ng/ml) 0.01 0.01 Hematology CBC w Diff MAN DIFF ORDERED WBC (4.8 - 10.8 /CUMM) 10.4 RBC (4.20 - 5.40 /CUMM) 2.83 L Hgb (12.0 - 16.0 G/DL) 7.9 L Hct (37 - 47 %) 25.6 L MCV (81.0 - 99.0 FL) 90.4 MCH (27.0 - 31.0 PG) 27.9 RDW (11.5 - 14.5 %) 17.5 H Plt Count (130 - 400 /CUMM) 442 H MPV (7.4 - 10.4 FL) 7.6 Gran % (42.2 - 75.2 %) 78.0 H Lymphocytes % (20.5 - 51.1 %) 11.7 L Monocytes % (1.7 - 9.3 %) 9.1 Eosinophils % (0 - 5 %) 1.1 Basophils % (0.0 - 2.0 %) 0.1 Absolute Granulocytes (1.4 - 6.5 /CUMM) 8.2 H Segmented Neutrophils (42.2 - 75.2 %) 78 H Absolute Lymphocytes (1.2 - 3.4 /CUMM) 1.2 Lymphocytes (20.5 - 51.1 %) 11 L Monocytes (1.7 - 9.3 %) 8 Absolute Monocytes (0.10 - 0.60 /CUMM) 1.0 H Eosinophils (0 - 5.0 %) 2 Absolute Eosinophils (0.0 - 0.7 /CUMM) 0.1 Basophils (0.0 - 2.0 %) 1 Absolute Basophils (0.0 - 0.2 /CUMM) 0 Nucleated RBCs (0.0 - 0.0 /100WBC) 3 H Platelet Estimate (ADEQUATE) INCREASED Polychromasia 2+ Hypochromic-Microcytic 2+ Poikilocytosis 1+ Basophilic Stippling SLIGHT Ovalocytes 1+ PUBS MCHC (33.0 - 37.0 G/DL) 30.8 L Other Body Source Fld Total RBCs Counted (%) 100 07/04 07/04 1512 1338 Chemistry Sodium (137 - 145 mmol/L) 142 Potassium (3.5 - 5.1 mmol/L) 6.5 *H Chloride (98 - 107 mmol/L) 110 H Carbon Dioxide (22 - 30 mmol/L) 25 Anion Gap (5 - 16) 8 BUN (7 - 17 mg/dL) 34 H Creatinine (0.5 - 1.0 mg/dL) 2.0 H Estimated GFR (>60 ml/min) 26 L BUN/Creatinine Ratio (7 - 25 %) 17.0 Glucose (65 - 99 mg/dL) 171 H Calcium (8.4 - 10.2 mg/dL) 8.0 L Iron (37 - 170 ug/dL) 188 H TIBC (265 - 497 ug/dL) 368 Ferritin (11.1 - 264 ng/mL) 11.1 Total Bilirubin (0.2 - 1.3 mg/dL) < 0.1 L AST (14 - 36 U/L) 15 ALT (9 - 52 U/L) 29 Alkaline Phosphatase (<127 U/L) 42 Troponin I (< 0.11 ng/ml) < 0.01 [id number] Pept (<125 pg/mL) 1060 H Total Protein (6.3 - 8.2 g/dL) 5.6 L Albumin (3.5 - 5.0 g/dL) 2.9 L Globulin (1.9 - 4.2 gm/dL) 2.7 Albumin/Globulin Ratio (1.1 - 2.2 %) 1.1 Coagulation PT (9.4 - 12.5 SEC) 11.0 INR (0.90 - 1.19) 1.05 APTT (25 - 37 SEC) 28 Hematology CBC w Diff NO MAN DIFF REQ WBC (4.8 - 10.8 /CUMM) 8.4 RBC (4.20 - 5.40 /CUMM) 2.25 L Hgb (12.0 - 16.0 G/DL) 6.1 *L Hct (37 - 47 %) 20.5 L MCV (81.0 - 99.0 FL) 91.1 MCH (27.0 - 31.0 PG) 27.0 RDW (11.5 - 14.5 %) 18.6 H Plt Count (130 - 400 /CUMM) 448 H MPV (7.4 - 10.4 FL) 7.8 Gran % (42.2 - 75.2 %) 81.0 H Lymphocytes % (20.5 - 51.1 %) 10.1 L Monocytes % (1.7 - 9.3 %) 6.8 Eosinophils % (0 - 5 %) 0.8 Basophils % (0.0 - 2.0 %) 1.3 Absolute Granulocytes (1.4 - 6.5 /CUMM) 6.8 H Absolute Lymphocytes (1.2 - 3.4 /CUMM) 0.9 L Absolute Monocytes (0.10 - 0.60 /CUMM) 0.6 Absolute Eosinophils (0.0 - 0.7 /CUMM) 0.1 Absolute Basophils (0.0 - 0.2 /CUMM) 0.1 PUBS MCHC (33.0 - 37.0 G/DL) 29.6 L Urines Urine Color Cancelled Urine Clarity Cancelled Urine pH Cancelled Ur Specific [place] Cancelled Urine Protein Cancelled Urine Ketones Cancelled Urine Nitrite Cancelled Urine Bilirubin Cancelled Urine Urobilinogen Cancelled Ur Leukocyte Esterase Cancelled Ur Microscopic Cancelled Urine Hemoglobin Cancelled Urine Glucose Cancelled Assessment/Plan Assessment: Anemia-patient has documented iron deficiency anemia thought secondary to GI blood loss. Patient has been compliant with oral iron however ferritin remains low. This sudden drop in hematocrit can only be explained by persistent bleeding. Patient has a normal bilirubin and previous workup for hemolysis was negative. Patient has received erythropoietin but in the face of iron deficiency, this will not be effective. Recommend- Transfuse as necessary Renal service has recommended IV iron As per GI Recommendations: .. Consult Acknowledgment - Thank you for your consult request.
[2017-07-06 08:17] LABS: ABSOLUTE BASOPHIL COUNT 0 /CUMM (0.0-0.2); ABSOLUTE EOSINOPHIL COUNT 0.2 /CUMM (0.0-0.7); ABSOLUTE GRANULOCYTE CT 7.8 /CUMM (1.4-6.5); ABSOLUTE LYMPH COUNT 1.2 /CUMM (1.2-3.4); BASOPHIL % 0.3 % (0.0-2.0); EOSINOPHIL % 1.7 % (0-5); HEMATOCRIT 24.5 % (37-47); MEAN CORPUSCULAR HGB 28.3 PG (27.0-31.0); MEAN CORPUSCULAR HGB CONC 31.4 G/DL (33.0-37.0); MEAN CORPUSCULAR VOLUME 90.1 FL (81.0-99.0); MEAN PLATELET VOLUME 7.9 FL (7.4-10.4); RBC DISTRIBUTION WIDTH 17.1 % (11.5-14.5); RED BLOOD CELL CT 2.73 /CUMM (4.20-5.40); WHITE BLOOD CELL COUNT 10.3 /CUMM (4.8-10.8)
[2017-07-06 09:35] LABS: PLATELET COUNT 408 /CUMM (130-400)
--- NOTE | 2017-07-06 11:46 | PN- Cardiology ---
Subjective Subjective: The patient is feeling better. She states her breathing is good. She has no chest pain. Her hemoglobin is slightly low at 7.7. Her potassium is coming down at 5.2. Her BUN and creatinine are stable at 32 and 2.0. She received 1 dose of Lasix yesterday. She is off of lisinopril. Her blood pressure is borderline at 150/80. Objective Vital Signs and I&Os Vital Signs Date Time Temp Pulse Resp B/P B/P Pulse O2 O2 Flow FiO2 Mean Ox Delivery Rate 07/06 0745 71 150/80 07/06 0744 71 150/80 07/06 0744 71 150/80 07/06 0554 98.5 71 20 150/80 92 07/06 0000 Nasal 2.0L Cannula 07/05 2351 97.0 80 20 180/80 91 07/05 2154 78 146/80 07/05 2153 78 146/80 07/05 1702 78 128/88 07/05 1600 Nasal 2.0L Cannula 07/05 1454 98.6 72 22 160/70 92 Nasal 2.0L Cannula Intake & Output 07/06 1600 07/06 0800 07/06 0000 07/05 1600 07/05 0800 07/05 0000 Intake Total 120 800 400 590 484 Output Total 550 Balance 120 800 400 40 484 Intake, Blood 350 350 Product Intake, IV 0 14 Intake, Oral 120 800 400 240 120 Number 0 Bowel Movements Output, Urine 550 Patient 190 lb 185 lb Weight Weight Chair scale Reported by Patient Measurement Method Physical Exam: She is in no distress HEENT exam is normal Chest is clear Heart reveals regular rhythm and no murmurs Extremities 1-2+ edema Results Last 48 Hrs of Labs/Mics: Laboratory Tests 07/06/17 0620: Anion Gap 8, Estimated GFR 26 L, BUN/Creatinine Ratio 16.0, CBC w Diff NO MAN DIFF REQ, RBC 2.73 L, MCV 90.1, MCH 28.3, RDW 17.1 H, MPV 7.9, Gran % 76.0 H, Lymphocytes % 12.1 L, Monocytes % 9.9 H, Eosinophils % 1.7, Basophils % 0.3, Absolute Granulocytes 7.8 H, Absolute Lymphocytes 1.2, Absolute Monocytes 1.0 H, Absolute Eosinophils 0.2, Absolute Basophils 0, PUBS MCHC 31.4 L 07/05/17 0909: Anion Gap 9, Estimated GFR 27 L, BUN/Creatinine Ratio 16.3, CBC w Diff MAN DIFF ORDERED, RBC 2.93 L, MCV 89.8, MCH 28.0, RDW 17.2 H, MPV 7.6, Gran % 80.0 H, Lymphocytes % 9.7 L, Monocytes % 8.3, Eosinophils % 1.8, Basophils % 0.2, Absolute Granulocytes 9.1 H, Segmented Neutrophils 81 H, Band Neutrophils 1, Absolute Lymphocytes 1.1 L, Lymphocytes 9 L, Monocytes 8, Absolute Monocytes 0.9 H, Absolute Eosinophils 0.2, Absolute Basophils 0, Myelocytes 1 H, Nucleated RBCs 2 H, Platelet Estimate INCREASED, Polychromasia 1+, Hypochromic- Microcytic 2+, Anisocytosis 1+, PUBS MCHC 31.2 L 07/05/17 0310: Troponin I 0.01, CBC w Diff MAN DIFF ORDERED, RBC 2.83 L, MCV 90.4, MCH 27.9, RDW 17.5 H, MPV 7.6, Gran % 78.0 H, Lymphocytes % 11.7 L, Monocytes % 9.1, Eosinophils % 1.1, Basophils % 0.1, Absolute Granulocytes 8.2 H, Segmented Neutrophils 78 H, Absolute Lymphocytes 1.2, Lymphocytes 11 L, Monocytes 8, Absolute Monocytes 1.0 H, Eosinophils 2, Absolute Eosinophils 0.1, Basophils 1, Absolute Basophils 0, Nucleated RBCs 3 H, Platelet Estimate INCREASED, Polychromasia 2+, Hypochromic-Microcytic 2+, Poikilocytosis 1+, Basophilic Stippling SLIGHT, Ovalocytes 1+, PUBS MCHC 30.8 L, Fld Total RBCs Counted 100 07/04/17 2015: Troponin I 0.01 07/04/17 1730: Anion Gap 10 07/04/17 1512: Urine Color Cancelled, Urine Clarity Cancelled, Urine pH Cancelled, Ur Specific [place] Cancelled, Urine Protein Cancelled, Urine Ketones Cancelled, Urine Nitrite Cancelled, Urine Bilirubin Cancelled, Urine Urobilinogen Cancelled, Ur Leukocyte Esterase Cancelled, Ur Microscopic Cancelled, Urine Hemoglobin Cancelled, Urine Glucose Cancelled 07/04/17 1338: Anion Gap 8, Estimated GFR 26 L, BUN/Creatinine Ratio 17.0, Glucose 171 H, Calcium 8.0 L, Iron 188 H, TIBC 368, Ferritin 11.1, Total Bilirubin < 0.1 L, AST 15, ALT 29, Alkaline Phosphatase 42, Troponin I < 0.01, Flr-I-Ffyvdvuihta Pept 1060 H, Total Protein 5.6 L, Albumin 2.9 L, Globulin 2.7, Albumin/ Globulin Ratio 1.1, PT 11.0, INR 1.05, APTT 28, CBC w Diff NO MAN DIFF REQ, RBC 2.25 L, MCV 91.1, MCH 27.0, RDW 18.6 H, MPV 7.8, Gran % 81.0 H, Lymphocytes % 10.1 L, Monocytes % 6.8, Eosinophils % 0.8, Basophils % 1.3, Absolute Granulocytes 6.8 H, Absolute Lymphocytes 0.9 L, Absolute Monocytes 0.6, Absolute Eosinophils 0.1, Absolute Basophils 0.1, PUBS MCHC 29.6 L Microbiology 07/04 1720 NASOPHARYN: Influenza Virus A & B Rapid Smear - COMP Assessment/Plan Assessment/Plan Mrs. Vitale is doing better. Her breathing is good. She probably could use another unit of blood. Hematology should be contacted to see if she would benefit from intravenous iron. If she gets a unit of blood I would give her 40 mg of Lasix IV at that time. She should be on chronic oral Lasix, I would suggest 40 mg daily. She needs further GI evaluation with a PillCam as an outpatient. Continue telemetry? No
--- NOTE | 2017-07-06 12:14 | PN- Nephrology ---
Assessment/Plan Assessment: 1. Hyperkalemia. 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 2. Congestive heart failure. Continue with diuresis 3. Chronic kidney disease felt to be due to diabetes and hypertension. Her stage is likely stage III/IV 4. Anemia. Currently receiving Venofer daily for a total of 1 g. Suggestion: 1. Strict intakes and outputs 2. Daily weights 3. Continue to hold lisinopril for now. The issue being that one is going to be interested in slowing progression of her underlying chronic kidney disease. 4. Please repeat a urinalysis along with a spot urine protein to creatinine ratio. Please do not do or order a microalbumin. She has cynthia proteinuria. Microalbuminuria is useful only in those who do not have cynthia diabetic kidney disease. 5. Please maintain on a 2 g sodium, 2 g potassium diabetic diet. 6. Would use furosemide 40 mg IV at least once a day. As you are doing. 7. Continue with IV iron infusion. Subjective Subjective: Patient is breathing a little bit better. Objective Vital Signs and I&Os Vital Signs Date Time Temp Pulse Resp B/P B/P Pulse O2 O2 Flow FiO2 Mean Ox Delivery Rate 07/06 0745 71 150/80 07/06 0744 71 150/80 07/06 0744 71 150/80 07/06 0554 98.5 71 20 150/80 92 07/06 0000 Nasal 2.0L Cannula 07/05 2351 97.0 80 20 180/80 91 07/05 2154 78 146/80 07/05 2153 78 146/80 07/05 1702 78 128/88 07/05 1600 Nasal 2.0L Cannula 07/05 1454 98.6 72 22 160/70 92 Nasal 2.0L Cannula Intake & Output 07/06 1600 07/06 0400 07/05 1600 07/05 0400 07/04 1600 07/04 0400 Intake Total 120 800 990 484 100 Output Total 550 Balance 120 800 440 484 100 Intake, Blood 350 350 Product Intake, IV 0 14 100 Intake, Oral 120 800 640 120 0 Number 0 Bowel Movements Output, Urine 550 Patient 190 lb 185 lb 184 lb Weight Weight Chair scale Reported by Patient Reported by Patient Measurement Method Physical Exam: General Appearance: well developed/nourished, no apparent distress, alert, awake Head: atraumatic, normal appearance Eyes: Bilateral: PERRL, EOMI, pale conjunctivae. Ears, Nose, Throat: normal pharynx, hearing grossly normal Neck: normal inspection, supple, trachea mid line, no masses no tenderness Respiratory: normal breath sounds, chest non-tender, lungs clear Cardiovascular: edema in lower extremities, regular rate and rhythm. No rubs no murmurs Gastrointestinal: normal bowel sounds, soft, non-tender Back: normal inspection, normal range of motion, no vertebral tenderness Extremities: swelling, left greater than right Neurologic/Psych: no motor/sensory deficits, awake, alert, oriented x 3 Skin: intact, normal color Current Medications: Current Medications Sig/Jannet Start time Last Medication Dose Route Stop Time Status Admin Albuterol Sulfate 2 PUF Q4 07/04 1800 AC 07/06 INH 1116 Albuterol Sulfate 3 ML Q4-6 PRN PRN 07/04 1630 AC INH Amlodipine Besylate 10 MG DAILY 07/04 1621 AC 07/06 PO 0744 Aspirin Buffered 81 MG DAILY 07/05 1000 AC 07/06 PO 0744 Budesonide/ 2 PUF BID 07/04 2200 AC 07/06 Formoterol Fumarate INH 1116 Carvedilol 25 MG BID 07/04 2200 AC 07/06 PO 0745 Diphenhydramine HCl 25 MG ONCE ONE 07/05 2215 DC 07/05 PO 07/05 2216 2219 Diphenoxylate HCl/ 2.5 MG DAILY NEEDED PRN 07/04 1630 AC Atropine PO Fenofibrate 48 MG DAILY 07/04 1623 AC 07/06 PO 0745 Furosemide 40 MG ONCE ONE 07/05 1615 DC 07/05 IV 07/05 1616 1700 Furosemide 40 MG DAILY 07/04 1653 07/06 IV 0744 Hydralazine HCl 100 MG TID 07/04 1624 AC 07/06 PO 0744 Insulin Aspart 0 TIDAC 07/05 1515 AC 07/05 GA 1713 Insulin Detemir 14 UNITS AT BEDTIME 07/04 2200 07/05 GA 2152 Iron Sucrose 200 MG 2000 07/05 1999 AC 07/05 Sodium Chloride 100 ML IV 07/09 2013 195 Nicotine 21 MG DAILY 07/05 1730 07/06 TOP 1108 Non-Formulary 0 SEE ADMIN CRITERIA 07/05 1615 CAN Medication ANY Oxycodone/ 2 TAB Q4P PRN 07/04 2100 AC 07/06 Acetaminophen PO 1115 Pravastatin Sodium 40 MG 1700 07/04 1700 AC 07/05 PO 1700 Results Pertinent Lab Results: Laboratory Tests 07/06 07/05 0620 0909 Chemistry Sodium (137 - 145 mmol/L) 140 142 Potassium (3.5 - 5.1 mmol/L) 5.2 H 5.6 H Chloride (98 - 107 mmol/L) 107 108 H Carbon Dioxide (22 - 30 mmol/L) 26 25 Anion Gap (5 - 16) 8 9 BUN (7 - 17 mg/dL) 32 H 31 H Creatinine (0.5 - 1.0 mg/dL) 2.0 H 1.9 H Estimated GFR (>60 ml/min) 26 L 27 L BUN/Creatinine Ratio (7 - 25 %) 16.0 16.3 Hematology CBC w Diff NO MAN DIFF REQ MAN DIFF ORDERED WBC (4.8 - 10.8 /CUMM) 10.3 11.4 H RBC (4.20 - 5.40 /CUMM) 2.73 L 2.93 L Hgb (12.0 - 16.0 G/DL) 7.7 L 8.2 L Hct (37 - 47 %) 24.5 L 26.3 L MCV (81.0 - 99.0 FL) 90.1 89.8 MCH (27.0 - 31.0 PG) 28.3 28.0 RDW (11.5 - 14.5 %) 17.1 H 17.2 H Plt Count (130 - 400 /CUMM) 408 H 433 H MPV (7.4 - 10.4 FL) 7.9 7.6 Gran % (42.2 - 75.2 %) 76.0 H 80.0 H Lymphocytes % (20.5 - 51.1 %) 12.1 L 9.7 L Monocytes % (1.7 - 9.3 %) 9.9 H 8.3 Eosinophils % (0 - 5 %) 1.7 1.8 Basophils % (0.0 - 2.0 %) 0.3 0.2 Absolute Granulocytes (1.4 - 6.5 /CUMM) 7.8 H 9.1 H Segmented Neutrophils (42.2 - 75.2 %) 81 H Band Neutrophils (0.0 - 5.0 %) 1 Absolute Lymphocytes (1.2 - 3.4 /CUMM) 1.2 1.1 L Lymphocytes (20.5 - 51.1 %) 9 L Monocytes (1.7 - 9.3 %) 8 Absolute Monocytes (0.10 - 0.60 /CUMM) 1.0 H 0.9 H Absolute Eosinophils (0.0 - 0.7 /CUMM) 0.2 0.2 Absolute Basophils (0.0 - 0.2 /CUMM) 0 0 Myelocytes (0 - 0 %) 1 H Nucleated RBCs (0.0 - 0.0 /100WBC) 2 H Platelet Estimate (ADEQUATE) INCREASED Polychromasia 1+ Hypochromic-Microcytic 2+ Anisocytosis 1+ PUBS MCHC (33.0 - 37.0 G/DL) 31.4 L 31.2 L 07/05 1730 Chemistry Sodium (137 - 145 mmol/L) 143 Potassium (3.5 - 5.1 mmol/L) 5.6 H 5.7 H Chloride (98 - 107 mmol/L) 110 H Carbon Dioxide (22 - 30 mmol/L) 23 Anion Gap (5 - 16) 10 Troponin I (< 0.11 ng/ml) 0.01 0.01 Hematology CBC w Diff MAN DIFF ORDERED WBC (4.8 - 10.8 /CUMM) 10.4 RBC (4.20 - 5.40 /CUMM) 2.83 L Hgb (12.0 - 16.0 G/DL) 7.9 L Hct (37 - 47 %) 25.6 L MCV (81.0 - 99.0 FL) 90.4 MCH (27.0 - 31.0 PG) 27.9 RDW (11.5 - 14.5 %) 17.5 H Plt Count (130 - 400 /CUMM) 442 H MPV (7.4 - 10.4 FL) 7.6 Gran % (42.2 - 75.2 %) 78.0 H Lymphocytes % (20.5 - 51.1 %) 11.7 L Monocytes % (1.7 - 9.3 %) 9.1 Eosinophils % (0 - 5 %) 1.1 Basophils % (0.0 - 2.0 %) 0.1 Absolute Granulocytes (1.4 - 6.5 /CUMM) 8.2 H Segmented Neutrophils (42.2 - 75.2 %) 78 H Absolute Lymphocytes (1.2 - 3.4 /CUMM) 1.2 Lymphocytes (20.5 - 51.1 %) 11 L Monocytes (1.7 - 9.3 %) 8 Absolute Monocytes (0.10 - 0.60 /CUMM) 1.0 H Eosinophils (0 - 5.0 %) 2 Absolute Eosinophils (0.0 - 0.7 /CUMM) 0.1 Basophils (0.0 - 2.0 %) 1 Absolute Basophils (0.0 - 0.2 /CUMM) 0 Nucleated RBCs (0.0 - 0.0 /100WBC) 3 H Platelet Estimate (ADEQUATE) INCREASED Polychromasia 2+ Hypochromic-Microcytic 2+ Poikilocytosis 1+ Basophilic Stippling SLIGHT Ovalocytes 1+ PUBS MCHC (33.0 - 37.0 G/DL) 30.8 L Other Body Source Fld Total RBCs Counted (%) 100 07/04 07/04 1512 1338 Chemistry Sodium (137 - 145 mmol/L) 142 Potassium (3.5 - 5.1 mmol/L) 6.5 *H Chloride (98 - 107 mmol/L) 110 H Carbon Dioxide (22 - 30 mmol/L) 25 Anion Gap (5 - 16) 8 BUN (7 - 17 mg/dL) 34 H Creatinine (0.5 - 1.0 mg/dL) 2.0 H Estimated GFR (>60 ml/min) 26 L BUN/Creatinine Ratio (7 - 25 %) 17.0 Glucose (65 - 99 mg/dL) 171 H Calcium (8.4 - 10.2 mg/dL) 8.0 L Iron (37 - 170 ug/dL) 188 H TIBC (265 - 497 ug/dL) 368 Ferritin (11.1 - 264 ng/mL) 11.1 Total Bilirubin (0.2 - 1.3 mg/dL) < 0.1 L AST (14 - 36 U/L) 15 ALT (9 - 52 U/L) 29 Alkaline Phosphatase (<127 U/L) 42 Troponin I (< 0.11 ng/ml) < 0.01 [id number] Pept (<125 pg/mL) 1060 H Total Protein (6.3 - 8.2 g/dL) 5.6 L Albumin (3.5 - 5.0 g/dL) 2.9 L Globulin (1.9 - 4.2 gm/dL) 2.7 Albumin/Globulin Ratio (1.1 - 2.2 %) 1.1 Coagulation PT (9.4 - 12.5 SEC) 11.0 INR (0.90 - 1.19) 1.05 APTT (25 - 37 SEC) 28 Hematology CBC w Diff NO MAN DIFF REQ WBC (4.8 - 10.8 /CUMM) 8.4 RBC (4.20 - 5.40 /CUMM) 2.25 L Hgb (12.0 - 16.0 G/DL) 6.1 *L Hct (37 - 47 %) 20.5 L MCV (81.0 - 99.0 FL) 91.1 MCH (27.0 - 31.0 PG) 27.0 RDW (11.5 - 14.5 %) 18.6 H Plt Count (130 - 400 /CUMM) 448 H MPV (7.4 - 10.4 FL) 7.8 Gran % (42.2 - 75.2 %) 81.0 H Lymphocytes % (20.5 - 51.1 %) 10.1 L Monocytes % (1.7 - 9.3 %) 6.8 Eosinophils % (0 - 5 %) 0.8 Basophils % (0.0 - 2.0 %) 1.3 Absolute Granulocytes (1.4 - 6.5 /CUMM) 6.8 H Absolute Lymphocytes (1.2 - 3.4 /CUMM) 0.9 L Absolute Monocytes (0.10 - 0.60 /CUMM) 0.6 Absolute Eosinophils (0.0 - 0.7 /CUMM) 0.1 Absolute Basophils (0.0 - 0.2 /CUMM) 0.1 PUBS MCHC (33.0 - 37.0 G/DL) 29.6 L Urines Urine Color Cancelled Urine Clarity Cancelled Urine pH Cancelled Ur Specific [place] Cancelled Urine Protein Cancelled Urine Ketones Cancelled Urine Nitrite Cancelled Urine Bilirubin Cancelled Urine Urobilinogen Cancelled Ur Leukocyte Esterase Cancelled Ur Microscopic Cancelled Urine Hemoglobin Cancelled Urine Glucose Cancelled
--- NOTE | 2017-07-06 14:05 | PN- Att Addend ---
Attending MD Review Statement Attending Statement Attending MD Statement: examined this patient, discuss w/resident/PA/DIRECTOR OF ARCHIVES, agreed w/resident/PA/DIRECTOR OF ARCHIVES, reviewed EMR data (avail), discussed w/nursing, discussed w/ case mgmt Attending Assessment/Plan: Laboratory Tests 07/06/17 0620: Anion Gap 8, Estimated GFR 26 L, BUN/Creatinine Ratio 16.0, CBC w Diff NO MAN DIFF REQ, RBC 2.73 L, MCV 90.1, MCH 28.3, RDW 17.1 H, MPV 7.9, Gran % 76.0 H, Lymphocytes % 12.1 L, Monocytes % 9.9 H, Eosinophils % 1.7, Basophils % 0.3, Absolute Granulocytes 7.8 H, Absolute Lymphocytes 1.2, Absolute Monocytes 1.0 H, Absolute Eosinophils 0.2, Absolute Basophils 0, PUBS MCHC 31.4 L Vital Signs Date Time Temp Pulse Resp B/P B/P Pulse O2 O2 Flow FiO2 Mean Ox Delivery Rate 07/06 0745 71 150/80 07/06 0744 71 150/80 07/06 0744 71 150/80 07/06 0554 98.5 71 20 150/80 92 07/06 0000 Nasal 2.0L Cannula 07/05 2351 97.0 80 20 180/80 91 07/05 2154 78 146/80 07/05 2153 78 146/80 07/05 1702 78 128/88 07/05 1600 Nasal 2.0L Cannula 07/05 1454 98.6 72 22 160/70 92 Nasal 2.0L Cannula 61 yr old female with pmh of copd( current acitve smoker 1PPD ), CHF-diastolic, DM, HCV s/p treatment in 2012, CKD with basline creatinine around 2 admitted with c/c of sob and worsening leg edema for last few days. Pt says she is using 3 pillows instead of 2 over the last few days. Pt also has h/o anemia for which she had workup with EGD and Colonoscopy which showed atrophic gastritis but no active source of her anemia and she is currently scheduled for Pillcam in next 1-2 weeks as an outpatient. Overnight- complains of worsening leg edema. Acute diastolic chf- cont on lasix 40mg iv daily, cardiology input appreciated. Given her worsening leg edema today we will give her additional 20mg iv lasix tonight. Anemia acute blood loss- got 2 U PRBC , hb post transfusion stable. cont to monitor. appreciated nephrology consult and heme/onc consult. Pt currently getting epogen through [facility] at home. Pt was started on iv venofer given the low ferritin. Hyperkalemia- better and down to 5.2. will f/u on repeat K in am. cont to hold lisinopril at discharge. Try to wean off oxygen prior to discharge. Nicotine dependence- counselled pt on quitting smoking. pt on nicotine patch. Will dc her on nicotine patch and gum d/w pt the care plan.
[2017-07-06 14:32] VITALS: BP 168/84
--- NOTE | 2017-07-06 14:32 | PN- Housestaff ---
Subjective Follow-up For: Anemia Hyperkalemia Chronic kidney disease Diabetes CHF Review of Systems Constitutional: Reports: no symptoms. Objective Last 24 Hrs of Vital Signs/I&O Vital Signs Date Time Temp Pulse Resp B/P B/P Pulse O2 O2 Flow FiO2 Mean Ox Delivery Rate 07/06 1614 76 168/84 07/06 1432 97.9 76 20 168/84 96 Nasal 2.0L Cannula 07/06 0745 71 150/80 07/06 0744 71 150/80 07/06 0744 71 150/80 07/06 0554 98.5 71 20 150/80 92 07/06 0000 Nasal 2.0L Cannula 07/05 2351 97.0 80 20 180/80 91 07/05 2154 78 146/80 07/05 2153 78 146/80 Intake & Output 07/06 1600 07/06 0800 07/06 0000 Intake Total 500 120 800 Output Total Balance 500 120 800 Intake, Oral 500 120 800 Number 1 Bowel Movements Patient 191 lb Weight Weight Chair scale Measurement Method Physical Exam General Appearance: Alert, Oriented X3, Cooperative, No Acute Distress Assessment/Plan Assessment: Patient is a 61 year old woman with a pmh significant for COPD not on home oxygen, CHF, HLD, HTN, osteoporesis, DM, hepatitis c s/p Harvoni in 2012, chronic lower extremity edema for 1.5 years, smoker, chronic diarrhea since cholecystectomy in 2014, that comes to see us with a chief complaint of exertional chest pain and shortness of breath for 3-4 days and a dry cough. She was found to have a hemoglobin of 6.5 and potassium of 6.1. Patient has been seen by us previously and has been worked up for anemia with a colonoscopy and endoscopy with a PillCam planned for June and is on Procrit and iron. The patient's last echocardiogram was mostly normal with an ejection fraction of 65% and some mitral annular calcification. The patient usually takes Lasix 40 mg for her chronic lower leg edema. She has also been seen by us before for a CHF exacerbation. Patient denies being on potassium pills or any other type of vitamin. In the ED the patient had temperature 98.5, heart rate 73, respiratory rate 18, blood pressure 117/71, 90% oxygen saturation on room air which increased to 99% saturation on next reading. Chest x-ray showed a right lower lobe infiltrate. EKG showed a rate of 74, QTC 462, normal sinus rhythm with no T-wave peaking in a normal QRS. Labs showed WBC count 8.4, hemoglobin 6.1, potassium of 6.5, creatinine of 2.0, troponins negative. Please note patient's creatinine is at her baseline. Today, patient's hemoglobin is better and her potassium has decreased to 5.7. When examined she was on 2.5 L of oxygen, had no chest pain and a little bit of shortness of breath on lying down. She has received 2 units of blood total. Flu swab yesterday was negative. Iron studies showed a high iron and borderline low ferritin. Plan Continue patient on aspirin, Coreg, hydralazine, Norvasc her blood pressure and CAD Hold patient lisinopril for elevated potassium level Follow-up urine cultures for patient's urinary frequency. As per Dr. Jackman we have stopped telemetry As per Dr. Pisano nephrology, we will give an extra dose of 40 mg IV Lasix again today and continue tomorrow. Patient takes 40 mg by mouth of Lasix at home. We will also start the patient on iron sucrose secondary to her low ferritin stores. We will give 200 mg IV a day for 5 days. We have placed a consult with hematology for her chronic anemia although she has been worked up by gastroenterology. We gave a courtesy call to Dr. Hdz who has worked her up for anemia but the last he left off was that he suggested PillCam which she has not yet done. EKG and troponins negative We will start patient's diabetic medications of log and Levemir cnt patients statin and TriCor Lomotil for her chronic diarrhea we are not treating patient for pneumonia even though infiltrate was seen. Patient has normal WBCs, no fever, no signs of infection. P chest x-ray showed possible developing pulmonary opacity of left pleural effusion versus underlying soft tissues, suspect small right pleural effusion. ask nurse to do oxygen saturation on ambulation room air to assess need for O2 full code Problem List: 1. Anemia 2. Hyperkalemia 3. Chronic kidney disease 4. ARF (acute renal failure) 5. Hypertension 6. Type 2 diabetes mellitus Pain Ratin Pain Location: back Pain Goal: Pain 4 or less Pain Plan: as needed Tomorrow's Labs & Rationales: bep cbc
[2017-07-06 23:36] VITALS: BP 160/68
[2017-07-07 06:35] VITALS: BP 160/60
[2017-07-07 09:10] LABS: ABSOLUTE BASOPHIL COUNT 0.1 /CUMM (0.0-0.2); ABSOLUTE EOSINOPHIL COUNT 0.2 /CUMM (0.0-0.7); ABSOLUTE GRANULOCYTE CT 7.9 /CUMM (1.4-6.5); ABSOLUTE LYMPH COUNT 1.5 /CUMM (1.2-3.4); ABSOLUTE MONOCYTE COUNT 1.2 /CUMM (0.10-0.60); BASOPHIL % 0.7 % (0.0-2.0); EOSINOPHIL % 1.7 % (0-5); GRANULOCYTE % 72.8 % (42.2-75.2); MEAN CORPUSCULAR HGB 28.5 PG (27.0-31.0); MEAN CORPUSCULAR HGB CONC 31.2 G/DL (33.0-37.0); MEAN CORPUSCULAR VOLUME 91.5 FL (81.0-99.0); MEAN PLATELET VOLUME 7.7 FL (7.4-10.4); PLATELET COUNT 422 /CUMM (130-400); RBC DISTRIBUTION WIDTH 17.3 % (11.5-14.5); RED BLOOD CELL CT 2.73 /CUMM (4.20-5.40); WHITE BLOOD CELL COUNT 10.9 /CUMM (4.8-10.8)
--- NOTE | 2017-07-07 10:23 | PN- Housestaff ---
Neel WILLIAMSON,Amber 07/07/17 1023: Subjective Follow-up For: Anemia Hyperkalemia Chronic kidney disease Diabetes CHF Subjective: patient notes some remaining shortness of breath. on interview patient is on RA. yesterday patient had HIDA scan. she had some shortness of breath so was given an extra dose of lasix. Review of Systems Constitutional: Reports: weakness. EENTM: Reports: no symptoms. Cardiovascular: Reports: no symptoms. Respiratory: Reports: cough, short of breath. Gastrointestinal: Reports: diarrhea (chronic). Objective Last 24 Hrs of Vital Signs/I&O Vital Signs Date Time Temp Pulse Resp B/P B/P Pulse O2 O2 Flow FiO2 Mean Ox Delivery Rate 07/07 2132 72 170/78 07/07 213 72 170/78 07/07 1636 74 152/84 07/07 1600 94 Room Air 07/07 1543 98.1 74 20 160/62 94 Room Air 07/07 1017 74 160/60 07/07 1017 74 160/60 07/07 1016 74 160/60 07/07 0635 98.1 74 20 160/60 90 Room Air 07/06 2336 99.2 84 18 160/68 90 Intake & Output 07/07 1600 07/07 0800 07/07 0000 Intake Total 540 360 360 Output Total 450 Balance 540 360 -90 Intake, Oral 540 360 360 Number 1 Bowel Movements Output, Urine 450 Patient 191 lb Weight Weight Chair scale Measurement Method Physical Exam General Appearance: Alert, Oriented X3, Cooperative, No Acute Distress Current Medications: Current Medications Sig/Jannet Start time Last Medication Dose Route Stop Time Status Admin Albuterol Sulfate 2 PUF Q4 07/04 1800 AC 07/07 INH 2130 Albuterol Sulfate 3 ML Q4-6 PRN PRN 07/04 1630 AC INH Amlodipine Besylate 10 MG DAILY 07/04 1621 07/07 PO 1017 Aspirin Buffered 81 MG DAILY 07/05 1000 AC 07/07 PO 1017 Budesonide/ 2 PUF BID 07/04 2199 AC 07/07 Formoterol Fumarate INH 2133 Carvedilol 25 MG BID 07/04 2200 AC 07/07 PO 2133 Diphenoxylate HCl/ 2.5 MG DAILY NEEDED PRN 07/04 1630 AC 07/07 Atropine PO 0907 Fenofibrate 48 MG DAILY 07/04 1623 AC 07/07 PO 1017 Furosemide 40 MG DAILY 07/04 1653 07/07 IV 1016 Hydralazine HCl 100 MG TID 07/04 1624 07/07 PO 2133 Insulin Aspart 0 TIDAC 07/05 1515 07/07 SC 1728 Insulin Detemir 14 UNITS AT BEDTIME 07/04 2200 07/07 SC 2130 Iron Sucrose 200 MG 2000 07/05 Sodium Chloride 100 ML IV 07/09 Nicotine 21 MG DAILY 07/05 1730 07/07 TOP 1018 Oxycodone/ 2 TAB Q4P PRN 07/04 2100 07/07 Acetaminophen PO 2130 Pravastatin Sodium 40 MG 1700 07/04 1700 07/07 PO 1634 Last 24 Hrs of Lab/Olu Results Last 24 Hrs of Labs/Mics: Laboratory Tests 07/07/17 0635: Anion Gap 9, Estimated GFR 27 L, BUN/Creatinine Ratio 16.8, CBC w Diff NO MAN DIFF REQ, RBC 2.73 L, MCV 91.5, MCH 28.5, RDW 17.3 H, MPV 7.7, Gran % 72.8, Lymphocytes % 13.8 L, Monocytes % 11.0 H, Eosinophils % 1.7, Basophils % 0.7, Absolute Granulocytes 7.9 H, Absolute Lymphocytes 1.5, Absolute Monocytes 1.2 H, Absolute Eosinophils 0.2, Absolute Basophils 0.1, PUBS MCHC 31.2 L Assessment/Plan Assessment: Patient is a 61 year old woman with a pmh significant for COPD not on home oxygen, CHF, HLD, HTN, osteoporesis, DM, hepatitis c s/p Milagros in 2012, chronic lower extremity edema for 1.5 years, smoker, chronic diarrhea since cholecystectomy in 2014, that comes to see us with a chief complaint of exertional chest pain and shortness of breath for 3-4 days and a dry cough. She was found to have a hemoglobin of 6.5 and potassium of 6.1. Patient has been seen by us previously and has been worked up for anemia with a colonoscopy and endoscopy with a PillCam planned for June and is on Procrit and iron. The patient's last echocardiogram was mostly normal with an ejection fraction of 65% and some mitral annular calcification. The patient usually takes Lasix 40 mg for her chronic lower leg edema. She has also been seen by us before for a CHF exacerbation. Patient denies being on potassium pills or any other type of vitamin. In the ED the patient had temperature 98.5, heart rate 73, respiratory rate 18, blood pressure 117/71, 90% oxygen saturation on room air which increased to 99% saturation on next reading. Chest x-ray showed a right lower lobe infiltrate. EKG showed a rate of 74, QTC 462, normal sinus rhythm with no T-wave peaking in a normal QRS. Labs showed WBC count 8.4, hemoglobin 6.1, potassium of 6.5, creatinine of 2.0, troponins negative. Please note patient's creatinine is at her baseline. Today, patient's hemoglobin and potassium have stabilized, hb continues to be low. When examined she was on room air, had no chest pain and a little bit of shortness of breath. 90% on room air. She has received 2 units of blood total. Flu swab yesterday is negative. Iron studies showed a high iron and borderline low ferritin. patient was started on iron sucrose yesterday. Plan Continue patient on aspirin, Coreg, hydralazine, Norvasc her blood pressure and CAD Hold patient lisinopril for elevated potassium level Follow-up urine cultures for patient's urinary frequency. As per Dr. Jackman we have stopped telemetry Attempt oxygen saturation on ambulation As per Dr. Pisano nephrology, we will give 40 mg IV Lasix again today. Patient takes 40 mg by mouth of Lasix at home. We have started the patient on iron sucrose secondary to her low ferritin stores. We will give 200 mg IV a day for 5 days. Wait for recommendations from nephro if we can switch IV lasix to PO as they specifically asked for IV. We have placed a consult with hematology for her chronic anemia although she has been worked up by gastroenterology. We gave a courtesy call to Dr. Hdz who has worked her up for anemia but the last he left off was that he suggested PillCam which she has not yet done. EKG and troponins negative We will cnt patient's diabetic medications novolog and Levemir cnt patients statin and TriCor Lomotil for her chronic diarrhea we are not treating patient for pneumonia even though infiltrate was seen. Patient has normal WBCs, no fever, no signs of infection. P chest x-ray showed possible developing pulmonary opacity of left pleural effusion versus underlying soft tissues, suspect small right pleural effusion. ask nurse to do oxygen saturation on ambulation room air to assess need for O2 nicotine patch 21 mg nutritional consult suggested 2g K, 2g Na limit and 70 g protein for patient's ckd full code Problem List: 1. Chronic kidney disease 2. Hyperkalemia 3. ARF (acute renal failure) 4. Type 2 diabetes mellitus 5. Anemia Pain Ratin Pain Location: back and knees Pain Goal: Pain 4 or less Pain Plan: per pathway Tomorrow's Labs & Rationales: cbc bep Quiana Moss MD 07/07/17 1421: Attending MD Review Statement Attending Statement Attending MD Statement: examined this patient, discuss w/resident/PA/TURPENTINER, agreed w/resident/PA/TURPENTINER, reviewed EMR data (avail), discussed with nursing, amended to note Attending Assessment/Plan: Patient seen and examined. Lying comfortably in bed not in any acute distress. No issues overnight. No significant events overnight on telemetry monitoring. She reports having several bowel movements overnight but states that this is chronic. Denies chest pain. Denies shortness of breath. Denies palpitations. On examination lungs are clear bilaterally. Heart sounds are regular. Abdomen soft and nontender. She has no peripheral edema. Hemoglobin is level is stable following transfusion of 2 units of blood during this admission. Recommendations: -Mild leukocytosis is probably reactive. Repeat CBCs in a.m. -Patient remains on diuresis with IV Lasix. Follow-up with the nephrology service regarding transitioning to oral diuretic therapy. -Anticipate discharge tomorrow if patient remains clinically stable.
--- NOTE | 2017-07-07 11:05 | Patient Discharge Instructions ---
Discharge Instructions General Discharge Information You were seen/treated for: HYPERKALEMIA ANEMIA CKD CHF Special Instructions: 1. PLEASE FOLLOW UP WITH YOUR PCP IN ONE WEEK. 2. PLEASE FOLLOW UP WITH DR. REECE FOR PILL CAM ON SCHEDULED APPOINTMENT 3. PLEASE FOLLOW WITH ELEMENTARY READING SPECIALIST 4. PLEASE FOLLOW WITH DR. BAUMAN ALUMNI RELATIONS MANAGER IN 1-2 WEEKS Diet Continue normal diet: No Recommended Diet: LIMITED SODIUM 2G, LIMITED POTASSIUM 2G, PROTEIN LIMIT 70G. Activity Full Activity/No Limits: Yes Acute Coronary Syndrome Inclusion Criteria At DC or during hospital stay patient has or had the following: ACS DIAGNOSIS No Discharge Core Measures Meds if any: Prescribed or Continued at Discharge Meds if any: NOT Prescribed or Continued at Discharge Congestive Heart Failure Inclusion Criteria At DC or during hospital stay patient has or had the following: CHF DIAGNOSIS No Discharge Core Measures Meds if any: Prescribed or Continued at Discharge Meds if any: NOT Prescribed or Continued at Discharge Cerebrovascular accident Inclusion Criteria At DC or during hospital stay patient has or had the following: CVA/TIA Diagnosis No Discharge Core Measures Meds if any: Prescribed or Continued at Discharge Meds if any: NOT Prescribed or Continued at Discharge Venous thromboembolism Inclusion Criteria VTE Diagnosis No VTE Type NONE VTE Confirmed by (Test) NONE Discharge Core Measures - Per Current guidelines, there needs to be overlap - treatment for the first 5 days of Warfarin therapy. - If discharged on Warfarin prior to 5 days of - overlap therapy, the patient will need to be - assessed for post discharge needs including - *Post discharge parental anticoagulation - *Warfarin and/or parental anticoagulation education - *Follow up date to check INR post discharge At least 5 days overlap therapy as Inpatient No Meds if any: Prescribed or Continued at Discharge Note: Overlap Therapy is Warfarin and Anticoagulant Meds if any: NOT Prescribed or Continued at Discharge
--- NOTE | 2017-07-07 15:21 | PN- Cardiology ---
Subjective Subjective: Clinically stable cardiac yates. The patient notes that she had 3-4 episodes of diarrhea earlier today. Objective Vital Signs and I&Os Vital Signs Date Time Temp Pulse Resp B/P B/P Pulse O2 O2 Flow FiO2 Mean Ox Delivery Rate 07/07 1017 74 160/60 07/07 1017 74 160/60 07/07 1016 74 160/60 07/07 0635 98.1 74 20 160/60 90 Room Air 07/06 2336 99.2 84 18 160/68 90 07/06 2130 88 170/74 07/06 2130 88 170/74 07/06 1614 76 168/84 Intake & Output 07/07 1600 07/07 0800 07/07 0000 07/06 1600 07/06 0800 07/06 0000 Intake Total 300 360 360 500 120 800 Output Total 450 Balance 300 360 -90 500 120 800 Intake, Oral 300 360 360 500 120 800 Number 1 Bowel Movements Output, Urine 450 Patient 191 lb 191 lb Weight Weight Chair scale Measurement Method Physical Exam: General: No acute distress; alert and oriented 3; vital signs stable ENT: Normal Chest: Clear to auscultation and percussion bilaterally Cor: Regular S1, S2, 1/6 systolic murmur Abdomen: Soft, bowel sounds present, no tenderness, no rebound Extremities: Without clubbing, cyanosis, or asymmetric edema Neurology: Alert and oriented 3, grossly nonfocal Current Medications: Current Medications Sig/Jannet Start time Last Medication Dose Route Stop Time Status Admin Albuterol Sulfate 2 PUF Q4 07/04 1800 AC 07/06 INH 2128 Albuterol Sulfate 3 ML Q4-6 PRN PRN 07/04 1630 AC INH Amlodipine Besylate 10 MG DAILY 07/04 1621 AC 07/07 PO 1017 Aspirin Buffered 81 MG DAILY 07/05 1000 AC 07/07 PO 1017 Budesonide/ 2 PUF BID 07/04 2200 AC 07/07 Formoterol Fumarate INH 1016 Carvedilol 25 MG BID 07/04 220 AC 07/07 PO 1017 Diphenoxylate HCl/ 2.5 MG DAILY NEEDED PRN 07/04 1630 07/07 Atropine PO 0907 Fenofibrate 48 MG DAILY 07/04 1623 AC 07/07 PO 1017 Furosemide 40 MG DAILY 07/04 1653 AC 07/07 IV 1016 Hydralazine HCl 100 MG TID 07/04 1624 AC 07/07 PO 1016 Insulin Aspart 0 TIDAC 07/05 1515 07/07 MS 1308 Insulin Detemir 14 UNITS AT BEDTIME 07/04 2199 07/06 MS 2127 Iron Sucrose 200 MG 2000 07/05 1999 07/06 Sodium Chloride 100 ML IV 07/09 Nicotine 21 MG DAILY 07/05 1730 07/07 TOP 1018 Oxycodone/ 2 TAB Q4P PRN 07/04 2100 07/07 Acetaminophen PO 1022 Pravastatin Sodium 40 MG 1700 07/04 1700 07/06 PO 1615 Results Last 48 Hrs of Labs/Mics: Laboratory Tests 07/07/17 0635: Anion Gap 9, Estimated GFR 27 L, BUN/Creatinine Ratio 16.8, CBC w Diff NO MAN DIFF REQ, RBC 2.73 L, MCV 91.5, MCH 28.5, RDW 17.3 H, MPV 7.7, Gran % 72.8, Lymphocytes % 13.8 L, Monocytes % 11.0 H, Eosinophils % 1.7, Basophils % 0.7, Absolute Granulocytes 7.9 H, Absolute Lymphocytes 1.5, Absolute Monocytes 1.2 H, Absolute Eosinophils 0.2, Absolute Basophils 0.1, PUBS MCHC 31.2 L 07/06/17 1728: Ur Random Creatinine 41.7, U Random Total Protein 326 H, Protein/Creatinin Ratio 7.8 H 07/06/17 1728: Urine Color YEL, Urine Clarity CLEAR, Urine pH 7.0, Ur Specific [place] 1.025, Urine Protein >=300 H, Urine Ketones NEG, Urine Nitrite NEG, Urine Bilirubin NEG, Urine Urobilinogen 0.2, Ur Leukocyte Esterase NEG, Ur Microscopic SEDIMENT EXAMINED, Urine RBC RARE, Urine WBC RARE, Ur Epithelial Cells RARE, Urine Bacteria FEW H, Urine Hemoglobin NEG, Urine Glucose NEG 07/06/17 0620: Anion Gap 8, Estimated GFR 26 L, BUN/Creatinine Ratio 16.0, CBC w Diff NO MAN DIFF REQ, RBC 2.73 L, MCV 90.1, MCH 28.3, RDW 17.1 H, MPV 7.9, Gran % 76.0 H, Lymphocytes % 12.1 L, Monocytes % 9.9 H, Eosinophils % 1.7, Basophils % 0.3, Absolute Granulocytes 7.8 H, Absolute Lymphocytes 1.2, Absolute Monocytes 1.0 H, Absolute Eosinophils 0.2, Absolute Basophils 0, PUBS MCHC 31.4 L Assessment/Plan Assessment/Plan Assessment: 1. Acute on chronic HFpEF with normally function and moderate LVH by echo 2. Anemia 3. Hyperkalemia 4. Chronic renal insufficiency 5. Diabetes Recommendations: -Continue current management as outlined. -Continue to monitor her intakes, outputs, and daily weights. -Consider further evaluation for new onset diarrhea -Follow-up labs pending. Anemia Hyperkalemia Chronic kidney disease Diabetes CHF Continue telemetry? No
[2017-07-07 15:43] VITALS: BP 160/62
[2017-07-07 23:15] VITALS: BP 152/60
[2017-07-08 07:09] VITALS: BP 154/68
[2017-07-08 07:57] LABS: ABSOLUTE BASOPHIL COUNT 0.1 /CUMM (0.0-0.2); ABSOLUTE EOSINOPHIL COUNT 0.2 /CUMM (0.0-0.7); ABSOLUTE GRANULOCYTE CT 8.6 /CUMM (1.4-6.5); ABSOLUTE LYMPH COUNT 1.7 /CUMM (1.2-3.4); BASOPHIL % 0.5 % (0.0-2.0); EOSINOPHIL % 1.7 % (0-5); GRANULOCYTE % 74.5 % (42.2-75.2); HEMATOCRIT 25.8 % (37-47); MEAN CORPUSCULAR HGB 28.6 PG (27.0-31.0); MEAN CORPUSCULAR VOLUME 92.2 FL (81.0-99.0); MEAN PLATELET VOLUME 7.6 FL (7.4-10.4); PLATELET COUNT 434 /CUMM (130-400); WHITE BLOOD CELL COUNT 11.6 /CUMM (4.8-10.8)
--- NOTE | 2017-07-08 08:52 | PN- Housestaff ---
See Addendum Subjective Follow-up For: CHF, anemia Tele-Events Since Last Visit: Not ontelel Subjective: No overnight events. She had some mild shortness of breath last night, no CP, abd pain, N/V/D. She feels like her feet are getting more swollen. Review of Systems Constitutional: Reports: no symptoms. EENTM: Reports: no symptoms. Cardiovascular: Reports: see HPI. Respiratory: Reports: see HPI. Gastrointestinal: Reports: no symptoms. Genitourinary: Reports: no symptoms. Musculoskeletal: Reports: no symptoms. Skin: Reports: no symptoms. Neurological/Psychological: Reports: no symptoms. Hematologic/Endocrine: Reports: no symptoms. Immunologic/Allergic: Reports: no symptoms. Objective Last 24 Hrs of Vital Signs/I&O Vital Signs Date Time Temp Pulse Resp B/P B/P Pulse O2 O2 Flow FiO2 Mean Ox Delivery Rate 07/08 0709 98.4 71 18 154/68 92 Room Air 07/07 2315 98.4 80 18 152/60 93 Room Air 07/07 2133 72 170/78 07/07 2133 72 170/78 07/07 1636 74 152/84 07/07 1600 94 Room Air 07/07 1543 98.1 74 20 160/62 94 Room Air 07/07 1017 74 160/60 07/07 1017 74 160/60 07/07 1016 74 160/60 Intake & Output 07/08 1600 07/08 0800 07/08 0000 Intake Total 110 800 Output Total Balance 110 800 Intake, IV 10 Intake, Oral 100 800 Physical Exam General Appearance: Alert, Oriented X3, Cooperative, No Acute Distress Skin: No Rashes Cardiovascular: Regular Rate, Normal S1, Normal S2 Lungs: mild wheezing Abdomen: Normal Bowel Sounds, Soft, No Tenderness Extremities: 2+ pitting edema bilaterally Current Medications: Current Medications Sig/Jannet Start time Last Medication Dose Route Stop Time Status Admin Albuterol Sulfate 2 PUF Q4 07/04 1800 AC 07/08 INH 0102 Albuterol Sulfate 3 ML Q4-6 PRN PRN 07/04 1630 AC INH Amlodipine Besylate 10 MG DAILY 07/04 1621 AC 07/07 PO 1017 Aspirin Buffered 81 MG DAILY 07/05 1000 AC 07/07 PO 1017 Budesonide/ 2 PUF BID 07/04 220 AC 07/07 Formoterol Fumarate INH 2133 Carvedilol 25 MG BID 07/04 220 AC 07/07 PO 2133 Diphenhydramine HCl 25 MG ONCE ONE 07/08 0100 DC 07/08 PO 07/08 010 0101 Diphenoxylate HCl/ 2.5 MG DAILY NEEDED PRN 07/04 1630 AC 07/07 Atropine PO 0907 Fenofibrate 48 MG DAILY 07/04 1623 AC 07/07 PO 1017 Furosemide 40 MG DAILY 07/04 1653 AC 07/07 IV 1016 Hydralazine HCl 100 MG TID 07/04 1624 AC 07/07 PO 2133 Insulin Aspart 0 TIDAC 07/05 1515 AC 07/07 SC 1728 Insulin Detemir 14 UNITS AT BEDTIME 07/04 2199 AC 07/07 SC 2130 Iron Sucrose 200 MG 2000 07/05 1999 AC 07/07 Sodium Chloride 100 ML IV 07/09 Nicotine 21 MG DAILY 07/05 1730 AC 07/07 TOP 1018 Oxycodone/ 2 TAB Q4P PRN 07/04 2100 AC 07/07 Acetaminophen PO 2130 Pravastatin Sodium 40 MG 1700 07/04 1700 AC 07/07 PO 1634 Last 24 Hrs of Lab/Olu Results Last 24 Hrs of Labs/Mics: Laboratory Tests 07/08/17 0620: Anion Gap 8, Estimated GFR 22 L, BUN/Creatinine Ratio 15.2, CBC w Diff NO MAN DIFF REQ, RBC 2.80 L, MCV 92.2, MCH 28.6, RDW 18.0 H, MPV 7.6, Gran % 74.5, Lymphocytes % 14.7 L, Monocytes % 8.6, Eosinophils % 1.7, Basophils % 0.5, Absolute Granulocytes 8.6 H, Absolute Lymphocytes 1.7, Absolute Monocytes 1.0 H, Absolute Eosinophils 0.2, Absolute Basophils 0.1, PUBS MCHC 31.0 L Assessment/Plan Assessment: Patient is a 61 year old woman with a pmh significant for COPD not on home oxygen, CHF, HLD, HTN, osteoporesis, DM, hepatitis c s/p Harvoni in 2012, chronic lower extremity edema for 1.5 years, smoker, chronic diarrhea since cholecystectomy in 2014 here with CHF exacerbation. Problem list: 1. Acute decompensated heart failure 2. Hyperkalemia 3. Acute on chronic anemia 4. Acute on chronic kidney disease She is +1.7 L, has gained 6 pounds since admission. Potassium has normalized. Creatinine is increased from 1.9-2.3. Consider increasing diuresis, appreciate cardiology recommendations Continue patient on aspirin, Coreg, hydralazine, Norvasc her blood pressure and CAD Hold patient lisinopril for elevated potassium level Follow-up urine cultures for patient's urinary frequency. Attempt oxygen saturation on ambulation iron sucrose 200 mg IV a day for 5 days. Appreciate hematology recommendations Appreciate GI recommendations EKG and troponins negative We will cnt patient's diabetic medications novolog and Levemir cnt patients statin and TriCor Lomotil for her chronic diarrhea nicotine patch 21 mg nutritional consult suggested 2g K, 2g Na limit and 70 g protein for patient's ckd full code DVT prophylaxis with Alps Problem List: 1. Anemia Pain Ratin Pain Location: no pain Pain Goal: Remain pain free Pain Plan: see /ap Tomorrow's Labs & Rationales: cbc, bep has worked her up for anemia but the last he left off was that he suggested PillCam which she has not yet done. EKG and troponins negative We will cnt patient's diabetic medications novolog and Levemir cnt patients statin and TriCor Lomotil for her chronic diarrhea we are not treating patient for pneumonia even though infiltrate was seen. Patient has normal WBCs, no fever, no signs of infection. P chest x-ray showed possible developing pulmonary opacity of left pleural effusion versus underlying soft tissues, suspect small right pleural effusion. ask nurse to do oxygen saturation on ambulation room air to assess need for O2 nicotine patch 21 mg nutritional consult suggested 2g K, 2g Na limit and 70 g protein for patient's ckd full code
[2017-07-08 14:48] VITALS: BP 144/54
--- NOTE | 2017-07-08 15:00 | PN- Cardiology ---
Subjective Subjective: Stable today doing better. No further diarrhea. Objective Vital Signs and I&Os Vital Signs Date Time Temp Pulse Resp B/P B/P Pulse O2 O2 Flow FiO2 Mean Ox Delivery Rate 07/08 1448 98.6 74 18 144/54 90 Room Air 07/08 0852 71 154/68 07/08 0851 71 154/68 07/08 0851 71 154/68 07/08 0709 98.4 71 18 154/68 92 Room Air 07/07 2315 98.4 80 18 152/60 93 Room Air 07/07 2133 72 170/78 07/07 2133 72 170/78 07/07 1636 74 152/84 07/07 1600 94 Room Air 07/07 1543 98.1 74 20 160/62 94 Room Air Intake & Output 07/08 1600 07/08 0800 07/08 0000 07/07 1600 07/07 0800 07/07 0000 Intake Total 600 110 800 540 360 360 Output Total 450 Balance 600 110 800 540 360 -90 Intake, IV 10 Intake, Oral 600 100 800 540 360 360 Number 1 1 Bowel Movements Output, Urine 450 Patient 187 lb 191 lb Weight Weight Chair scale Chair scale Measurement Method Current Medications: Current Medications Sig/Jannet Start time Last Medication Dose Route Stop Time Status Admin Albuterol Sulfate 2 PUF Q4 07/04 1800 AC 07/08 INH 1310 Albuterol Sulfate 3 ML Q4-6 PRN PRN 07/04 1630 AC INH Amlodipine Besylate 10 MG DAILY 07/04 1621 AC 07/08 PO 0851 Aspirin Buffered 81 MG DAILY 07/05 1000 AC 07/08 PO 0851 Budesonide/ 2 PUF BID 07/04 2200 AC 07/08 Formoterol Fumarate INH 0848 Carvedilol 25 MG BID 07/04 2200 AC 07/08 PO 0852 Diphenhydramine HCl 25 MG ONCE ONE 07/08 0100 DC 07/08 PO 07/08 0101 0101 Diphenoxylate HCl/ 2.5 MG DAILY NEEDED PRN 07/04 1630 AC 07/07 Atropine PO 0907 Fenofibrate 48 MG DAILY 07/04 1623 AC 07/08 PO 0851 Furosemide 40 MG DAILY 07/04 1653 DC 07/08 IV 0847 Hydralazine HCl 100 MG TID 07/04 1624 AC 07/08 PO 0851 Insulin Aspart 0 TIDAC 07/05 1515 AC 07/08 WI 1309 Insulin Detemir 14 UNITS AT BEDTIME 07/04 2200 07/07 WI 2130 Iron Sucrose 200 MG 2000 07/05 1999 07/07 Sodium Chloride 100 ML IV 07/09 Nicotine 21 MG DAILY 07/05 1730 07/08 TOP 0847 Oxycodone/ 2 TAB Q4P PRN 07/04 2100 07/08 Acetaminophen PO 0849 Pravastatin Sodium 40 MG 1700 07/04 1700 07/07 PO 1634 Results Last 48 Hrs of Labs/Mics: Laboratory Tests 07/08/17 0620: Anion Gap 8, Estimated GFR 22 L, BUN/Creatinine Ratio 15.2, CBC w Diff NO MAN DIFF REQ, RBC 2.80 L, MCV 92.2, MCH 28.6, RDW 18.0 H, MPV 7.6, Gran % 74.5, Lymphocytes % 14.7 L, Monocytes % 8.6, Eosinophils % 1.7, Basophils % 0.5, Absolute Granulocytes 8.6 H, Absolute Lymphocytes 1.7, Absolute Monocytes 1.0 H, Absolute Eosinophils 0.2, Absolute Basophils 0.1, PUBS MCHC 31.0 L 07/07/17 0635: Anion Gap 9, Estimated GFR 27 L, BUN/Creatinine Ratio 16.8, CBC w Diff NO MAN DIFF REQ, RBC 2.73 L, MCV 91.5, MCH 28.5, RDW 17.3 H, MPV 7.7, Gran % 72.8, Lymphocytes % 13.8 L, Monocytes % 11.0 H, Eosinophils % 1.7, Basophils % 0.7, Absolute Granulocytes 7.9 H, Absolute Lymphocytes 1.5, Absolute Monocytes 1.2 H, Absolute Eosinophils 0.2, Absolute Basophils 0.1, PUBS MCHC 31.2 L 07/06/17 1728: Ur Random Creatinine 41.7, U Random Total Protein 326 H, Protein/Creatinin Ratio 7.8 H 07/06/17 1728: Urine Color YEL, Urine Clarity CLEAR, Urine pH 7.0, Ur Specific [place] 1.025, Urine Protein >=300 H, Urine Ketones NEG, Urine Nitrite NEG, Urine Bilirubin NEG, Urine Urobilinogen 0.2, Ur Leukocyte Esterase NEG, Ur Microscopic SEDIMENT EXAMINED, Urine RBC RARE, Urine WBC RARE, Ur Epithelial Cells RARE, Urine Bacteria FEW H, Urine Hemoglobin NEG, Urine Glucose NEG Assessment/Plan Assessment/Plan Assessment: 1. Acute on chronic HFpEF with normally function and moderate LVH by echo 2. Anemia 3. Hyperkalemia 4. Chronic renal insufficiency 5. Diabetes Recommendations: -Continue current management as outlined. -Continue to monitor her intakes, outputs, and daily weights. -Consider further evaluation for new onset diarrhea -Follow-up labs pending. Continue telemetry? No CHF
--- NOTE | 2017-07-08 17:49 | RADIOLOGY REPORT ---
EXAMINATION: XR PORTABLE CHEST CLINICAL INFORMATION: shortness of breath COMPARISON: 07/05/2017 TECHNIQUE: Portable frontal view of the chest was obtained. FINDINGS: The heart size is stably enlarged compared to previous. There is left lower lobe subsegmental atelectasis. Otherwise, the lungs are clear. Small left pleural effusion. Visualized osseous structures appear intact. IMPRESSION: Small left pleural effusion. Stable cardiomegaly.
[2017-07-08 23:02] VITALS: BP 182/70
[2017-07-09 06:50] VITALS: BP 180/68
[2017-07-09 08:28] LABS: ABSOLUTE BASOPHIL COUNT 0 /CUMM (0.0-0.2); ABSOLUTE EOSINOPHIL COUNT 0.2 /CUMM (0.0-0.7); ABSOLUTE GRANULOCYTE CT 8.5 /CUMM (1.4-6.5); ABSOLUTE LYMPH COUNT 1.3 /CUMM (1.2-3.4); ABSOLUTE MONOCYTE COUNT 0.9 /CUMM (0.10-0.60); BASOPHIL % 0.2 % (0.0-2.0); EOSINOPHIL % 1.4 % (0-5); HEMATOCRIT 26.8 % (37-47); MEAN CORPUSCULAR HGB 28.3 PG (27.0-31.0); MEAN CORPUSCULAR HGB CONC 30.9 G/DL (33.0-37.0); MEAN CORPUSCULAR VOLUME 91.6 FL (81.0-99.0); MEAN PLATELET VOLUME 7.7 FL (7.4-10.4); PLATELET COUNT 453 /CUMM (130-400); RBC DISTRIBUTION WIDTH 19.3 % (11.5-14.5); RED BLOOD CELL CT 2.93 /CUMM (4.20-5.40); WHITE BLOOD CELL COUNT 10.9 /CUMM (4.8-10.8)
[2017-07-09 08:48] VITALS: BP 180/68
--- NOTE | 2017-07-09 08:54 | PN- Housestaff ---
See Addendum Subjective Follow-up For: ANEMIA HYPERKALEMIA CHF EXACERBATION Subjective: PATIENT EAGER TO LEAVE. had slight wheezing last night. no chest pain. some painful swollen feet and took off her ALPs. Review of Systems Constitutional: Reports: no symptoms. Respiratory: Reports: wheezing. Musculoskeletal: Reports: muscle pain. Objective Last 24 Hrs of Vital Signs/I&O Vital Signs Date Time Temp Pulse Resp B/P B/P Pulse O2 O2 Flow FiO2 Mean Ox Delivery Rate 07/09 0900 Room Air 07/09 0848 74 180/68 07/09 0848 74 180/68 07/09 0848 74 180/68 07/09 0650 98.2 74 20 180/68 92 Room Air 07/09 0000 Room Air 07/08 2302 98.5 91 16 182/70 95 Room Air 07/08 2136 80 180/70 07/08 2136 80 182/70 Intake & Output 07/09 1600 07/09 0800 07/09 0000 Intake Total 110 400 Output Total Balance 110 400 Intake, IV 10 Intake, Oral 100 400 Number 0 Bowel Movements Physical Exam General Appearance: Alert, Oriented X3, Cooperative, No Acute Distress Cardiovascular: Regular Rate, Normal S1, Normal S2, No Murmurs Lungs: Clear to Auscultation Extremities: No Clubbing, No Cyanosis, Normal Pulses Current Medications: Current Medications Sig/Jannet Start time Last Medication Dose Route Stop Time Status Admin Albuterol Sulfate 2 PUF Q4 07/04 1800 DCD 07/09 INH 0905 Albuterol Sulfate 3 ML Q4-6 PRN PRN 07/04 1630 DCD INH Amlodipine Besylate 10 MG DAILY 07/04 1621 DCD 07/09 PO 0848 Aspirin Buffered 81 MG DAILY 07/05 1000 DCD 07/09 PO 0848 Budesonide/ 2 PUF BID 07/04 2200 DCD 07/09 Formoterol Fumarate INH 0905 Carvedilol 25 MG BID 07/04 2200 DCD 07/09 PO 0848 Diphenhydramine HCl 25 MG ONCE ONE 07/08 2199 DC 07/08 PO 07/08 220 2150 Diphenoxylate HCl/ 2.5 MG DAILY NEEDED PRN 07/04 1630 DCD 07/07 Atropine PO 0907 Fenofibrate 48 MG DAILY 07/04 1623 DCD 07/09 PO 0847 Furosemide 40 MG ONE ONE 07/09 1100 DC 07/09 PO 07/09 1101 1234 Hydralazine HCl 100 MG TID 07/04 1624 DCD 07/09 PO 0848 Insulin Aspart 0 TIDAC 07/05 1515 DCD 07/09 SC 1234 Insulin Detemir 14 UNITS AT BEDTIME 07/04 2200 DCD 07/08 SC 2142 Iron Sucrose 200 MG 2000 07/05 1999 DCD 07/08 Sodium Chloride 100 ML IV 07/09 Nicotine 21 MG DAILY 07/05 1730 DCD 07/09 TOP 1234 Oxycodone/ 2 TAB Q4P PRN 07/04 2100 DCD 07/09 Acetaminophen PO 0849 Pravastatin Sodium 40 MG 1700 07/04 1700 DCD 07/08 PO 1627 Last 24 Hrs of Lab/Olu Results Last 24 Hrs of Labs/Mics: Laboratory Tests 07/09/17 0655: Anion Gap 9, Estimated GFR 26 L, BUN/Creatinine Ratio 18.0, CBC w Diff NO MAN DIFF REQ, RBC 2.93 L, MCV 91.6, MCH 28.3, RDW 19.3 H, MPV 7.7, Gran % 78.0 H, Lymphocytes % 12.0 L, Monocytes % 8.4, Eosinophils % 1.4, Basophils % 0.2, Absolute Granulocytes 8.5 H, Absolute Lymphocytes 1.3, Absolute Monocytes 0.9 H, Absolute Eosinophils 0.2, Absolute Basophils 0, PUBS MCHC 30.9 L Assessment/Plan Assessment: Patient is a 61 year old woman with a pmh significant for COPD not on home oxygen, CHF, HLD, HTN, osteoporesis, DM, hepatitis c s/p Milagros in 2012, chronic lower extremity edema for 1.5 years, smoker, chronic diarrhea since cholecystectomy in 2014 here with CHF exacerbation. Problem list: 1. Acute decompensated heart failure 2. Hyperkalemia resolved 3. Acute on chronic anemia 4. Acute on chronic kidney disease Potassium has normalized. Creatinine is increased from 2.3-->2.0 give one extra dose lasix today 40mg po and then instruct her to take 60mg po qd until she sees dr. camejo for reevaluating her dosage. repeat cxr showed small left pleural effusion. Continue patient on aspirin, Coreg, hydralazine, Norvasc her blood pressure and CAD Hold patient lisinopril for elevated potassium level Follow-up urine cultures for patient's urinary frequency. Attempt oxygen saturation on ambulation iron sucrose 200 mg IV a day for 5 days. Appreciate hematology recommendations Appreciate GI recommendations EKG and troponins negative We will cnt patient's diabetic medications novolog and Levemir cnt patients statin and TriCor Lomotil for her chronic diarrhea nicotine patch 21 mg nutritional consult suggested 2g K, 2g Na limit and 70 g protein for patient's ckd full code DVT prophylaxis with Alps Problem List: 1. Anemia 2. Chronic kidney disease 3. Hyperkalemia 4. Fluid overload Pain Ratin Pain Location: lower legs Pain Goal: Pain 4 or less Pain Plan: prn Tomorrow's Labs & Rationales: dinesh
--- NOTE | 2017-07-09 10:39 | PN- Nephrology ---
Assessment/Plan Assessment: 1. Congestive heart failure or volume overload. Issues with the weights are noted. The patient does report still some orthopnea. Specifically she says she gets a little wheezy when she lies down flat. She was on 40 mg a day of furosemide prior to admission. Would favor increasing this to 60 mg a day. 2. Hyperkalemia. Now resolved. At some point I would like to get her back on to an ADRI inhibitor. 3. Diabetes mellitus 4. History of hepatitis C. Both diabetes and hepatitis C can lead to proteinuric renal disease. Suggestion: 1. Today, I think the patient is able to be discharged. I would favor giving her an extra 40 of Lasix when she goes home today. 2. Would favor increasing her daily furosemide dose to 60 mg. 3. Keep in mind, her hyperkalemia occurred with decompensation of her CHF old with the administration of 40 mg a day of lisinopril. It may at some point behoove the patient to be reinstituted on an ADRI inhibitor or perhaps an angiotensin receptor bella with the ADRI inhibitor being a lower dose in order to decrease proteinuria and more importantly preserve kidney function. Subjective Subjective: Patient feels well. She tells me she is going home. She does mention however when she lies down she does get a wheeze still Objective Vital Signs and I&Os Vital Signs Date Time Temp Pulse Resp B/P B/P Pulse O2 O2 Flow FiO2 Mean Ox Delivery Rate 07/09 0900 Room Air 07/09 0848 74 180/68 07/09 0848 74 180/68 07/09 0848 74 180/68 07/09 0650 98.2 74 20 180/68 92 Room Air 07/09 0000 Room Air 07/08 2302 98.5 91 16 182/70 95 Room Air 07/08 2136 80 180/70 07/08 2136 80 182/70 07/08 1629 82 170/70 07/08 1448 98.6 74 18 144/54 90 Room Air Intake & Output 07/09 1600 07/09 0400 07/08 1600 07/08 0400 07/07 1600 07/07 0400 Intake Total 110 400 710 800 900 360 Output Total 450 Balance 110 400 710 800 900 -90 Intake, IV 10 10 Intake, Oral 100 400 700 800 900 360 Number 0 1 1 Bowel Movements Output, Urine 450 Patient 187 lb 191 lb Weight Weight Chair scale Chair scale Measurement Method Physical Exam: General Appearance: well developed/nourished, no apparent distress, alert, awake Head: atraumatic, normal appearance Eyes: Bilateral: PERRL, EOMI, pale conjunctivae. Ears, Nose, Throat: normal pharynx, hearing grossly normal Neck: normal inspection, supple, trachea mid line, no masses no tenderness Respiratory: normal breath sounds, chest non-tender, lungs clear Cardiovascular: edema in lower extremities, regular rate and rhythm. No rubs no murmurs Gastrointestinal: normal bowel sounds, soft, non-tender Back: normal inspection, normal range of motion, no vertebral tenderness Extremities: swelling, left greater than right Neurologic/Psych: no motor/sensory deficits, awake, alert, oriented x 3 Skin: intact, normal color Results Pertinent Lab Results: Laboratory Tests 07/09 07/08 0655 0620 Chemistry Sodium (137 - 145 mmol/L) 141 140 Potassium (3.5 - 5.1 mmol/L) 4.7 4.5 Chloride (98 - 107 mmol/L) 108 H 108 H Carbon Dioxide (22 - 30 mmol/L) 25 24 Anion Gap (5 - 16) 9 8 BUN (7 - 17 mg/dL) 36 H 35 H Creatinine (0.5 - 1.0 mg/dL) 2.0 H 2.3 H Estimated GFR (>60 ml/min) 26 L 22 L BUN/Creatinine Ratio (7 - 25 %) 18.0 15.2 Hematology CBC w Diff NO MAN DIFF REQ NO MAN DIFF REQ WBC (4.8 - 10.8 /CUMM) 10.9 H 11.6 H RBC (4.20 - 5.40 /CUMM) 2.93 L 2.80 L Hgb (12.0 - 16.0 G/DL) 8.3 L 8.0 L Hct (37 - 47 %) 26.8 L 25.8 L MCV (81.0 - 99.0 FL) 91.6 92.2 MCH (27.0 - 31.0 PG) 28.3 28.6 RDW (11.5 - 14.5 %) 19.3 H 18.0 H Plt Count (130 - 400 /CUMM) 453 H 434 H MPV (7.4 - 10.4 FL) 7.7 7.6 Gran % (42.2 - 75.2 %) 78.0 H 74.5 Lymphocytes % (20.5 - 51.1 %) 12.0 L 14.7 L Monocytes % (1.7 - 9.3 %) 8.4 8.6 Eosinophils % (0 - 5 %) 1.4 1.7 Basophils % (0.0 - 2.0 %) 0.2 0.5 Absolute Granulocytes (1.4 - 6.5 /CUMM) 8.5 H 8.6 H Absolute Lymphocytes (1.2 - 3.4 /CUMM) 1.3 1.7 Absolute Monocytes (0.10 - 0.60 /CUMM) 0.9 H 1.0 H Absolute Eosinophils (0.0 - 0.7 /CUMM) 0.2 0.2 Absolute Basophils (0.0 - 0.2 /CUMM) 0 0.1 PUBS MCHC (33.0 - 37.0 G/DL) 30.9 L 31.0 L 07/07 07/06 0635 1728 Chemistry Sodium (137 - 145 mmol/L) 141 Potassium (3.5 - 5.1 mmol/L) 4.7 Chloride (98 - 107 mmol/L) 108 H Carbon Dioxide (22 - 30 mmol/L) 24 Anion Gap (5 - 16) 9 BUN (7 - 17 mg/dL) 32 H Creatinine (0.5 - 1.0 mg/dL) 1.9 H Estimated GFR (>60 ml/min) 27 L BUN/Creatinine Ratio (7 - 25 %) 16.8 Hematology CBC w Diff NO MAN DIFF REQ WBC (4.8 - 10.8 /CUMM) 10.9 H RBC (4.20 - 5.40 /CUMM) 2.73 L Hgb (12.0 - 16.0 G/DL) 7.8 L Hct (37 - 47 %) 25.0 L MCV (81.0 - 99.0 FL) 91.5 MCH (27.0 - 31.0 PG) 28.5 RDW (11.5 - 14.5 %) 17.3 H Plt Count (130 - 400 /CUMM) 422 H MPV (7.4 - 10.4 FL) 7.7 Gran % (42.2 - 75.2 %) 72.8 Lymphocytes % (20.5 - 51.1 %) 13.8 L Monocytes % (1.7 - 9.3 %) 11.0 H Eosinophils % (0 - 5 %) 1.7 Basophils % (0.0 - 2.0 %) 0.7 Absolute Granulocytes (1.4 - 6.5 /CUMM) 7.9 H Absolute Lymphocytes (1.2 - 3.4 /CUMM) 1.5 Absolute Monocytes (0.10 - 0.60 /CUMM) 1.2 H Absolute Eosinophils (0.0 - 0.7 /CUMM) 0.2 Absolute Basophils (0.0 - 0.2 /CUMM) 0.1 PUBS MCHC (33.0 - 37.0 G/DL) 31.2 L Urines Ur Random Creatinine (mg/dL) 41.7 U Random Total Protein (0 - 12 mg/dL) 326 H Protein/Creatinin Ratio (< 0.2) 7.8 H 07/06 1728 Urines Urine Color (YEL,AMB,STR) YEL Urine Clarity (CLEAR) CLEAR Urine pH (5.0 - 8.0) 7.0 Ur Specific Bessie (1.001 - 1.035) 1.025 Urine Protein (NEG,<30 MG/DL) >=300 H Urine Ketones (NEG) NEG Urine Nitrite (NEG) NEG Urine Bilirubin (NEG) NEG Urine Urobilinogen (0.1 - 1.0 EU/dl) 0.2 Ur Leukocyte Esterase (NEG) NEG Ur Microscopic SEDIMENT EXAMINED Urine RBC (0 - 5 /HPF) RARE Urine WBC (0 - 2 /HPF) RARE Ur Epithelial Cells (NONE,FEW) RARE Urine Bacteria (NEG/NONE) FEW H Urine Hemoglobin (NEG) NEG Urine Glucose (N MG/DL) NEG
[2017-07-09] MEDS ORDERED: LASIX40 M1 PO (10:54)
== END 2017-07-09 13:45 | disposition home health service (06) | DRG 194 ==
LOC: ERH 13:12 → 1NO 15:12 → ERHI 15:12 → ENRESERV 16:58 → ENTRNSPT 18:00 → 1NO 18:43 → CMPTRNSPT 19:01 → 1NO 07-05 08:18 → ENPENDDIS 07-09 10:02 → ENTRNSPT 07-09 13:22 → EDTRNSPTSTS 07-09 13:45 → 1NO 07-09 13:45 → CMPTRNSPT 07-09 13:54
PROVIDERS: Emergency Medicine; Internal Medicine Adolescent Medicine; Physician Assistant Medical; Student in an Organized Health Care Education/Training Program
PROC: 30233N1 Transfusion of Nonautologous Red Blood Cells into Peripheral Vein, Percutaneous Approach (ICD-10-PCS; principal; 2017-07-05)
DX: I13.0 Hypertensive heart and chronic kidney disease with heart failure and stage 1 through stage 4 chronic kidney disease, or unspecified chronic kidney disease (principal); E87.5 Hyperkalemia; I50.33 Acute on chronic diastolic (congestive) heart failure; E11.22 Type 2 diabetes mellitus with diabetic chronic kidney disease; B18.2 Chronic viral hepatitis C; E66.9 Obesity, unspecified; Z68.32 Body mass index [BMI] 32.0-32.9, adult; N18.3 Chronic kidney disease, stage 3 (moderate); J44.9 Chronic obstructive pulmonary disease, unspecified; E78.5 Hyperlipidemia, unspecified; M81.0 Age-related osteoporosis without current pathological fracture; F17.210 Nicotine dependence, cigarettes, uncomplicated; Z79.51 Long term (current) use of inhaled steroids; Z79.4 Long term (current) use of insulin; K52.9 Noninfective gastroenteritis and colitis, unspecified; Z86.19 Personal history of other infectious and parasitic diseases; D72.829 Elevated white blood cell count, unspecified; N19 Unspecified kidney failure; D62 Acute posthemorrhagic anemia
CPT/HCPCS: 1NSP; 36415; 71045; 71046; 81001; 82436; 82570; 86920; 87804; 87804-59; 93005; 93010; J0610; J1200; J1756; J1815; J1940; J3490; P9016

== ENCOUNTER 2017-08-10 14:06 | Inpatient (IN) | payer OTHER ==
[~2017-08-10] VITALS: Ht 157.5 cm; Wt 81.8 kg
[~2017-08-10 14:06] MED LIST changes: -LYRICA50 M1 PO
--- NOTE | 2017-08-10 14:14 | ED DYSPNEA/ASTHMA COMPLAINT ---
History of Present Illness General Chief Complaint: Dyspnea (COPD, CHF, Other) Stated Complaint: LEFT AMA [facility] ER TODAY C/O SOB Source: patient, family, old records Exam Limitations: no limitations Vital Signs & Intake/Output Vital Signs & Intake/Output Vital Signs Date Time Temp Pulse Resp B/P B/P Pulse O2 O2 Flow FiO2 Mean Ox Delivery Rate 08/10 1830 Nasal 3.0L Cannula 08/10 1750 98.4 83 20 174/90 08/10 1610 95 Nasal 4.0L Cannula 08/10 1608 98.4 83 20 174/90 95 Nasal 4.0L Cannula 08/10 1439 95 Nasal 3.0L Cannula 08/10 1411 97.5 80 20 156/75 74 Room Air Allergies Coded Allergies: No Known Allergies (09/01/15) Reconcile Medications Albuterol Sulfate (Proair Hfa) 90 MCG HFA.AER.AD 2 PUF INH Q4 BREATHING PROBLEMS Albuterol Sulfate 2.5 MG/3 ML (0.083 %) VIAL.NEB 3 ML INH Q4-6 PRN PRN SHORTNESS OF BREATH . Amlodipine Besylate (Norvasc) 10 MG TABLET 10 MG PO DAILY blood pressure .. Aspirin (Ecotrin*) 81 MG TABLET.DR 1 TAB PO DAILY HEART HEALTH Carvedilol 25 MG TABLET 25 MG PO BID blood pressure .. Diphenoxylate HCl/Atropine (Lomotil 2.5-0.025 MG Tablet) 2.5 MG-0.025 MG TABLET 2 TAB PO DAILY DIARRHEA (Reported) Epoetin Elia (Procrit) 20,000 UNIT/ML VIAL 15,000 U SC QSUN anemia .. Fenofibrate (Tricor) 48 MG TABLET 1 TAB PO DAILY CHOLESTEROL Ferrous Sulfate 325 MG (65 MG IRON) TABLET. 325 MG PO DAILY supplement take 1 tab twice a day. Fluticasone/Salmeterol (Advair 250-50 Diskus) 250 MCG-50 MCG/DOSE BLST.W.DEV 1 PUF INH BID BREATHING PROBLEMS Furosemide (Lasix) 40 MG TABLET 1.5 TAB PO DAILY WATER RETENTION Hydralazine HCl 100 MG TABLET 1 TAB PO TID BLOOD PRESSURE take 1 tab three times a day.. Hydroxyzine Hydrochloride (Atarax) 25 MG TABLET 1 TAB PO BID UNKNOWN ( Reported) Insulin Aspart (Novolog) 100 UNIT/ML VIAL 0 UNITS SC TIDAC diabetes sugar unit <150 0 151-200 4 201-250 6 251-300 8 301-350 10 351-400 12 >400 14, call Insulin Detemir (Levemir) 100 UNIT/ML VIAL 14 UNITS SC AT BEDTIME diabetes .. Nepafenac (Ilevro) 0.3 % DROPS.SUSP EYE (Reported) Nicotine (Nicotine Patch) 14 MG/24 HOUR PATCH.TD24 1 PAT TD DAILY smoking cessation Oxycodone HCl/Acetaminophen (Percocet 7.5-325 MG Tablet) 7.5 MG-325 MG TABLET 1 TAB PO 4 TIMES/DAY PRN PAIN (Reported) Pantoprazole Sodium (Protonix) 40 MG TABLET.DR 1 TAB PO DAILY ACID REFLUX Pravastatin Sodium (Pravachol) 40 MG TABLET 1 TAB PO DAILY CHOLESTEROL Pregabalin (Lyrica) 50 MG CAPSULE 1 CAP PO TID PAIN (Reported) Trazodone HCl 150 MG TABLET 1 TAB PO QPM SLEEP (Reported) Triage Note: 61 YO FEMALE TO TRIAGE C/O NO APPETETIE AND SOB X3 DAYS. STATES SHE WAS JUST A [facility] BUT SIGNED OUT AMA. C/O YELLOW SPUTUM. RA SATS 75%. PT TO AN ER ROOM. [facility] Triage Nurses Notes Reviewed? yes Onset: Gradual Duration: day(s): Timing: recent history Severity: severe HPI: 61yo female with hx of COPD, CHF presents to ED complaining of dyspnea x 3 days worsening. Patient is a current smoker. Patient reports that despite use of home nebulizer she still has persistent symptoms. Patient reports low-grade fever at home this morning. She also notes cough productive of yellow sputum. Patient complaining of pleuritic chest pain bilaterally. Patient's son called for ambulance which brought the patient to [facility] this morning, patient signed out AMA so she could come here to [facility], she states that all of her specialists are through [facility] and feels more comfortable here. Patient has history of anemia requiring blood transfusion, last transfusion was in June. Patient reports recent pill cam through Dr. Hdz's office, unsure of results. The patient denies hematemesis, melena, diarrhea, abdominal pain. (Hayley IRVIN,Patito Reyes) Past History Travel History Traveled to [place] past 21 day No Medical History Any Pertinent Medical History? see below for history Neurological: NONE EENT: cataracts Cardiovascular: CHF, hypertension, hyperlipidemia Respiratory: COPD, pneumonia Gastrointestinal: GERD, iron deficiency anemia chronic, intermittent diarrhea Hepatic: cholecystitis, hepatitis C Renal: chronic kidney disease Musculoskeletal: falls, osteoporosis Psychiatric: NONE Endocrine: diabetes Blood Disorders: anemia Cancer(s): NONE TOP EXECUTIVE/Reproductive: NONE History of MRSA: No History of VRE: No History of CDIFF: No Surgical History Surgical History: appendectomy, cholecystectomy, CATARACTS Psychosocial History Who do you live with Son Services at Home None What is your primary language Bulgarian Tobacco Use: Never used Family History Family History, If Any: MOTHER FH: diabetes mellitus Hx Contributory? No (aPtito Ruby) Review of Systems Review of Systems Constitutional: Reports: see HPI. EENTM: Reports: no symptoms. Respiratory: Reports: see HPI. Cardiovascular: Reports: see HPI. GI: Reports: no symptoms. Genitourinary: Reports: no symptoms. Musculoskeletal: Reports: no symptoms. Skin: Reports: no symptoms. Neurological/Psychological: Reports: no symptoms. Hematologic/Endocrine: Reports: no symptoms. Immunologic/Allergic: Reports: no symptoms. All Other Systems: Reviewed and Negative (Patito Ruby) Physical Exam Physical Exam General Appearance: well developed/nourished, no apparent distress, alert, awake Head: atraumatic, normal appearance Eyes: Bilateral: normal appearance. Ears, Nose, Throat: hearing grossly normal Neck: normal inspection, supple, full range of motion Respiratory: chest non-tender, no respiratory distress, DIFFUSE EXPIRATORY WHEEZES Cardiovascular: regular rate/rhythm Gastrointestinal: normal bowel sounds, soft, non-tender, no organomegaly Extremities: normal inspection, normal range of motion Neurologic/Psych: awake, alert, oriented x 3 Skin: intact, normal color, warm/dry Core Measures ACS in differential dx? Yes CVA/TIA Diagnosis No Sepsis Present: No Sepsis Focused Exam Completed? No (Patito Ruby) Progress Differential Diagnosis: asthma, AMI, bronchitis, costochondritis, CHF, COPD, musculoskeletal pain, pulmonary embolism, pneumonia, unstable angina, gi bleed, anemia Plan of Care: Orders Procedure Date/time Status CBC WITHOUT DIFFERENTIAL 08/11 1500 Active CBC WITHOUT DIFFERENTIAL 08/11 0300 Active Full Liquid Diet 08/10 D Active RT: Evaluation 08/10 1829 Active PARTIAL THROMBOPLASTIN TIME 08/10 1748 Active PROTHROMBIN TIME 08/10 1748 Active BLOOD PRODUCT PICKUP 08/10 1748 Active TRC EVALUATION (GEN) 08/10 1721 Complete OXYGEN SETUP (GEN) 08/10 1721 Complete Pathway - chart 08/10 1721 Active House Staff 08/10 1721 Active Patient Data 08/10 1721 Active Code Status 08/10 1721 Active TRC EVALUATION (GEN) 08/10 1634 Complete OXYGEN SETUP (GEN) 08/10 1634 Complete Pathway - chart 08/10 1634 Active House Staff 08/10 1634 Active Patient Data 08/10 1634 Active Patient Data 08/10 1611 Active Admit to inpatient 08/10 1609 Active Add-on Test (ER Only) 08/10 1607 Active TYPE & SCREEN (NOT X-MATCH) 08/10 1601 Active LEUKOCYTE POOR (PACKED CELLS) 08/10 1600 Active RAPID VIRAL INFLUENZA A 08/10 1526 Complete B-TYPE NATRIURETIC PEP (BNP) 08/10 1458 Complete TROPONIN LEVEL 08/10 1415 Complete LACTIC ACID 08/10 1415 Complete COMPREHENSIVE METABOLIC PANEL 08/10 1415 Complete CBC WITHOUT DIFFERENTIAL 08/10 1415 Complete EKG 08/10 1415 Active THERAPIST ORDERS 08/10 UNK Complete VTE Mechanical Prophylaxis 08/10 UNK Active Vital Signs 08/10 UNK Active MISTAKE 08/10 UNK Active Intake & Output 08/10 UNK Active Hemoccult 08/10 UNK Active FingerStick- Glucose 08/10 UNK Active Current Medications Sig/Jannet Start time Last Medication Dose Stop Time Status Admin Insulin Aspart 0 TIDAC 08/11 0800 AC (NovoLOG) Albuterol Sulfate 3 ML TID 08/100 AC (Proventil) Carvedilol 25 MG BID 08/10 220 AC (Coreg) Insulin Detemir 7 UNITS AT BEDTIME 08/10 2199 AC (Levemir) Amlodipine Besylate 10 MG DAILY 08/10 1746 AC 08/10 (Norvasc) 1750 Laboratory Tests 08/10/17 1715: Lactic Acid Cancelled 08/10/17 1458: Anion Gap 6, Estimated GFR 21 L, BUN/Creatinine Ratio 16.7, Glucose 182 H, Lactic Acid 0.9, Calcium 7.8 L, Total Bilirubin 0.1 L, AST 25, ALT 27, Alkaline Phosphatase 43, Troponin I 0.04, Xvy-U-Lvddaqlabag Pept 5750 H, Total Protein 5.3 L, Albumin 2.7 L, Globulin 2.6, Albumin/Globulin Ratio 1.0 L, CBC w Diff NO MAN DIFF REQ, RBC 2.27 L, MCV 88.1, MCH 27.5, MCHC 31.2 L, RDW 16.8 H, MPV 7.6, Gran % 80.6 H, Lymphocytes % 7.6 L, Monocytes % 11.6 H, Eosinophils % 0.1, Basophils % 0.1, Absolute Granulocytes 7.0 H, Absolute Lymphocytes 0.7 L, Absolute Monocytes 1.0 H, Absolute Eosinophils 0, Absolute Basophils 0 08/10/17 1423: Epe-R-Nazgftmbvuz Pept Cancelled Microbiology 08/10 1551 NASOPHARYN: Influenza Virus A & B Rapid Smear - COMP Spoke with Dr. Hdz regarding this patient - Bleeding present on pill cam. Admit to ICU for scope over the weekend. If no space in the ICU can be admitted to the floor. Patient reports improvement following DuoNeb medication, she is sitting comfortably in stretcher, no respiratory distress, oxygenation saturation maintaining well with supplemental oxygen. Dr. Falk is present to see and evaluate patient. Patient consents to blood transfusion. 2 units packed red blood cells to be given here in the ER. Dr. Goode spoke with hospitalist regarding this patient's ICU admission for acute blood loss anemia, GI bleeding. Diagnostic Imaging: Viewed by Me: Radiology Read. Discussed w/RAD: Radiology Read. Radiology Impression: PATIENT: ORLIN FERNANDEZ PRESENT AGE: 61 PATIENT ACCOUNT NO: [id number] : 59 LOCATION: [facility] ORDERING PHYSICIAN: Patito IRVIN SERVICE DATE: 08/10/17 EXAM TYPE: RAD - XRY-CHEST XRAY, TWO VIEWS EXAMINATION: XR CHEST CLINICAL INFORMATION: Pneumonia CHF effusion COMPARISON: Prior chest 07/08/2017 TECHNIQUE: 2 views of the chest were obtained. FINDINGS: There is increased interstitial markings bilaterally. Is a small amount of fluid tracking along the right major fissure. There is slight prominence of central pulmonary vasculature. The cardiac silhouette is within the limits of normal. No definite effusion. IMPRESSION: Findings likely reflect mild pulmonary edema\E\CHF. DICTATED BY: Everett Dangelo MD DATE/TIME DICTATED:08/10/171536 RURAL MAIL CARRIER:NIKI DATE/TIME TRANSCRIBED:1536 CONFIDENTIAL, DO NOT COPY WITHOUT APPROPRIATE AUTHORIZATION. < Electronically signed in Other Vendor System> SIGNED BY: Everett Dangelo MD 08/10/17 1546 Initial ED EKG: sinus rhythm @83bpm, nonspecific ST changes Prior EKG: unchanged (07/05/17) (Patito Ruby) Departure Departure Referrals: Eduardo Beavers MD (PCP/Family) Departure Forms: Customer Survey General Discharge Information (Patito Ruby) Departure Disposition: STILL A PATIENT Condition: Guarded Clinical Impression Primary Impression: GI bleed Secondary Impressions: COPD (chronic obstructive pulmonary disease), Symptomatic anemia Admission Note Spoke With: Yaima Cardoso MD Documentation of Exam: Documentation of any treatments & extenuating circumstances including Concerns Regarding Discharge (functional status, medication knowledge or non-compliance, living conditions, etc.) that warrant an admission rather than observation: [ICU ADMISSION, TRANSFUSION, GI CONSULT, WILL HAVE ENDOSCOPY/COLONOSCOPY THIS WEEKEND.] PA/MANDARIN TEACHER Co-Sign Statement Statement: ED Attending supervision documentation- [X] I saw and evaluated the patient. I have also reviewed all the pertinent lab results and diagnostic results. I agree with the findings and the plan of care as documented in the PA's/MANDARIN TEACHER's documentation. [X] I have reviewed the ED Record and agree with the PA's/MANDARIN TEACHER's documentation. [] Additions or exceptions (if any) to the PAs/MANDARIN TEACHER's note and plan are summarized below: [] (Russel WILLIAMSON,Danish Grace) Critical Care Note Critical Care Note Critical Care Time: 30-74 min (Patito Ruby)
[2017-08-10 15:06] LABS: ABSOLUTE BASOPHIL COUNT 0 /CUMM (0.0-0.2); ABSOLUTE EOSINOPHIL COUNT 0 /CUMM (0.0-0.7); ABSOLUTE LYMPH COUNT 0.7 /CUMM (1.2-3.4); MEAN CORPUSCULAR VOLUME 88.1 FL (81.0-99.0)
[2017-08-10 15:10] LABS: BASOPHIL % 0.1 % (0.0-2.0); EOSINOPHIL % 0.1 % (0-5); GRANULOCYTE % 80.6 % (42.2-75.2); MEAN CORPUSCULAR HGB 27.5 PG (27.0-31.0); MEAN CORPUSCULAR HGB CONC 31.2 G/DL (33.0-37.0); MEAN PLATELET VOLUME 7.6 FL (7.4-10.4); PLATELET COUNT 366 /CUMM (130-400); RBC DISTRIBUTION WIDTH 16.8 % (11.5-14.5); RED BLOOD CELL CT 2.27 /CUMM (4.20-5.40); WHITE BLOOD CELL COUNT 8.7 /CUMM (4.8-10.8)
--- NOTE | 2017-08-10 15:46 | RADIOLOGY REPORT ---
EXAMINATION: XR CHEST CLINICAL INFORMATION: Pneumonia CHF effusion COMPARISON: Prior chest 07/08/2017 TECHNIQUE: 2 views of the chest were obtained. FINDINGS: There is increased interstitial markings bilaterally. Is a small amount of fluid tracking along the right major fissure. There is slight prominence of central pulmonary vasculature. The cardiac silhouette is within the limits of normal. No definite effusion. IMPRESSION: Findings likely reflect mild pulmonary edema\E\CHF.
--- NOTE | 2017-08-10 16:33 | History & Physical ---
Jesi Morfin 08/10/17 1632: General Information and HPI MD Statement: I have seen and personally examined ORLIN FERNANDEZ and documented this H&P. Source of Information: patient Exam Limitations: no limitations History of Present Illness: This is a 61-year-old lady with past medical history significant for COPD, CHF, diabetes, GERD, hep C, IVDU, hypertension, chronic anemia who presented to the hospital with chief complaint of dyspnea, productive cough for the past week. She was seen by her visiting nurse this morning suggested the patient to be sent to the hospital for further evaluation. Per patient, she has been having productive cough mild sore throat and URI symptoms for the past week, had a history of sick contacts (grandchildren). She did not take any myxn-dbi-puqugir medication. Before presenting to the [facility] she went to [facility] emergency room for shortness of breath but left AMA. Per patient, she underwent capsule endoscopy on Sunday and since then has been "freezing", therefore she is not able to tolerate anything per oral or take any of her medications including her antihypertensives and insulin. At the time of our interview, the patient reports mild sore throat, shortness of breath, denies dizziness, lightheadedness, chest pain, chest pressure, abdominal pain, urinary symptoms, hematuria, blood in bowel movement. She is an active smoker currently smoking approximately 4 cigarettes per day. Reviewing his chart, apparently had a video capsule endoscopy revealed active bleeding in proximal small bowel due to vascular ectasia/arteriovenous malformations. In the ED, she was noted to have hemoglobin 6.2, hematocrit 21.9. She was evaluated by education diagnostician. Allergies/Medications Allergies: Coded Allergies: No Known Allergies (09/01/15) Home Med list Albuterol Sulfate (Proair Hfa) 90 MCG HFA.AER.AD 2 PUF INH Q4 BREATHING PROBLEMS Albuterol Sulfate 2.5 MG/3 ML (0.083 %) VIAL.NEB 3 ML INH Q4-6 PRN PRN SHORTNESS OF BREATH . Amlodipine Besylate (Norvasc) 10 MG TABLET 10 MG PO DAILY blood pressure .. Aspirin (Ecotrin*) 81 MG TABLET.DR 1 TAB PO DAILY HEART HEALTH Carvedilol 25 MG TABLET 25 MG PO BID blood pressure .. Diphenoxylate HCl/Atropine (Lomotil 2.5-0.025 MG Tablet) 2.5 MG-0.025 MG TABLET 2 TAB PO DAILY DIARRHEA (Reported) Epoetin Elia (Procrit) 20,000 UNIT/ML VIAL 15,000 U SC QSUN anemia .. Fenofibrate (Tricor) 48 MG TABLET 1 TAB PO DAILY CHOLESTEROL Ferrous Sulfate 325 MG (65 MG IRON) TABLET.DR 325 MG PO DAILY supplement take 1 tab twice a day. Fluticasone/Salmeterol (Advair 250-50 Diskus) 250 MCG-50 MCG/DOSE BLST.W.DEV 1 PUF INH BID BREATHING PROBLEMS Furosemide (Lasix) 40 MG TABLET 1.5 TAB PO DAILY WATER RETENTION Hydralazine HCl 100 MG TABLET 1 TAB PO TID BLOOD PRESSURE take 1 tab three times a day.. Hydroxyzine Hydrochloride (Atarax) 25 MG TABLET 1 TAB PO BID UNKNOWN ( Reported) Insulin Aspart (Novolog) 100 UNIT/ML VIAL 0 UNITS SC TIDAC diabetes sugar unit <150 0 151-200 4 201-250 6 251-300 8 301-350 10 351-400 12 >400 14, call Insulin Detemir (Levemir) 100 UNIT/ML VIAL 14 UNITS SC AT BEDTIME diabetes .. Nepafenac (Ilevro) 0.3 % DROPS.SUSP EYE (Reported) Nicotine (Nicotine Patch) 14 MG/24 HOUR PATCH.TD24 1 PAT TD DAILY smoking cessation Oxycodone HCl/Acetaminophen (Percocet 7.5-325 MG Tablet) 7.5 MG-325 MG TABLET 1 TAB PO 4 TIMES/DAY PRN PAIN (Reported) Pantoprazole Sodium (Protonix) 40 MG TABLET.DR 1 TAB PO DAILY ACID REFLUX Pravastatin Sodium (Pravachol) 40 MG TABLET 1 TAB PO DAILY CHOLESTEROL Pregabalin (Lyrica) 50 MG CAPSULE 1 CAP PO TID PAIN (Reported) Trazodone HCl 150 MG TABLET 1 TAB PO QPM SLEEP (Reported) Past History Travel History Traveled to [place] past 21 day No Medical History Neurological: NONE EENT: cataracts Cardiovascular: CHF, hypertension, hyperlipidemia Respiratory: COPD, pneumonia Gastrointestinal: GERD, iron deficiency anemia chronic, intermittent diarrhea Hepatic: cholecystitis, hepatitis C Renal: chronic kidney disease Musculoskeletal: falls, osteoporosis Psychiatric: NONE Endocrine: diabetes Blood Disorders: anemia Cancer(s): NONE 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 Exam & Diagnostic Data Last 24 Hrs of Vital Signs/I&O Vital Signs Date Time Temp Pulse Resp B/P B/P Pulse O2 O2 Flow FiO2 Mean Ox Delivery Rate 08/10 1610 95 Nasal 4.0L Cannula 08/10 1608 98.4 83 20 174/90 95 Nasal 4.0L Cannula 08/10 1439 95 Nasal 3.0L Cannula 08/10 1411 97.5 80 20 156/75 74 Room Air Intake & Output 08/10 1600 08/10 0800 08/10 0000 Intake Total Output Total Balance Patient 174 lb Weight Weight Reported by Patient Measurement Method Physical Exam General Appearance Alert, Oriented X3, Cooperative, No Acute Distress Skin No Rashes, No Breakdown, No Significant Lesion Skin Temp/Moisture Exam: Warm/Dry Sepsis Skin Exam (color): Normal for Ethnicity HEENT Atraumatic, PERRLA, EOMI, Mucous Membr. moist/pink Neck Supple, No JVD, No thryomegaly, +2 Carotid Pulse wo Bruit, No LAD Lymphatic Axillary nl, Cervical nl Cardiovascular Regular Rate, Normal S1, Normal S2, systolic murmur Lungs expiratory wheezes Abdomen Normal Bowel Sounds, Soft, No Tenderness, No Hepatospenomegaly, No Masses Neurological Normal Speech, Strength at 5/5 X4 Ext, Normal Tone, Sensation Intact, Cranial Nerves 3-12 NL Extremities No Clubbing, No Cyanosis, Normal Pulses, No Tenderness/Swelling, B/L pedal edema Vascular Normal Pulses, Pulses Symmetrical Last 24 Hrs of Labs/Olu: Laboratory Tests 08/10/17 1748: PT 14.1 H, INR 1.35 H, APTT 31 08/10/17 1715: Lactic Acid Cancelled 08/10/17 1458: Anion Gap 6, Estimated GFR 21 L, BUN/Creatinine Ratio 16.7, Glucose 182 H, Lactic Acid 0.9, Calcium 7.8 L, Total Bilirubin 0.1 L, AST 25, ALT 27, Alkaline Phosphatase 43, Troponin I 0.04, Byp-Q-Xugrogrrukp Pept 5750 H, Total Protein 5.3 L, Albumin 2.7 L, Globulin 2.6, Albumin/Globulin Ratio 1.0 L, CBC w Diff NO MAN DIFF REQ, RBC 2.27 L, MCV 88.1, MCH 27.5, MCHC 31.2 L, RDW 16.8 H, MPV 7.6, Gran % 80.6 H, Lymphocytes % 7.6 L, Monocytes % 11.6 H, Eosinophils % 0.1, Basophils % 0.1, Absolute Granulocytes 7.0 H, Absolute Lymphocytes 0.7 L, Absolute Monocytes 1.0 H, Absolute Eosinophils 0, Absolute Basophils 0 08/10/17 1423: Aqs-P-Aomhprgajvf Pept Cancelled Microbiology 08/10 2114 UPPER RESP: Surveillance Culture - RECD 08/10 2114 GI: Surveillance Culture - RECD 08/10 1551 NASOPHARYN: Influenza Virus A & B Rapid Smear - COMP Diagnostic Data EKG Results Sinus rhythm, rate 83, no significant ST-T wave abnormalities CXR Results Findings likely reflect mild pulmonary edema\\E\\CHF. Assessment/Plan Assessment: This is a 61-year-old lady with past medical history significant for COPD, CHF, diabetes, GERD, hep C, IVDU, hypertension, chronic anemia admitted to the hospital with acute blood loss anemia and worsening of shortness of breath. Problem list #Acute blood loss anemia #Recent URI with shortness of breath #History of diabetes #History of hypertension #COPD Plan * Admitted to ICU * Check H&H every 4 hours * Appreciate GI recommendations * Transfusion as necessary to maintain hemoglobin above 7 * Flu swab Negative, conservative management regarding URI, considering sputum culture, blood cultures * IV Protonix * TRC/nebs as needed * Accu-Cheks, insulin sliding scale, will start dose Levemir at lower dose of 7 units at bedtime. * Consider increasing dose of Levemir based on blood glucose levels after the patient starts eating. * The patient has not been taking her medications since Sunday, will restart amlodipine and beta bella at this point, please reevaluate tomorrow and restart other antihypertensives. * DVT prophylaxis without * Patient is full code * Smoking cessation counseling done As Ranked By This Provider Problem List: 1. GI bleed Core Measures/Misc (03/11) Acute Coronary Syndrome ACS Diagnosis: No Congestive Heart Failure Congestive Heart Failure Diagnosis No Cerebrovascular Accident CVA/TIA Diagnosis: No VTE (View Protocol) VTE Risk Factors Age>40 No Mechanical VTE Prophylaxis d/t N/A MechProphylax Ordered No VTE Pharm Prophylaxis d/t Bleeding (Active) Sepsis (View protocol) Sepsis Present: No Yaima Cardoso 08/10/17 1704: Attending Review Statement Attending Statement Attending MD Statement: examined this patient, discuss w/resident/PA/METAL CUTTER, agreed w/resident/PA/METAL CUTTER, discussed with family, reviewed EMR data (avail), discussed with nursing, discussed with case mgmt, reviewed images, amended to note Attending Assessment/Plan: 61 o/f with pmh of gi bleed, CKD, anemia, htn, chf, comes with flu like symptoms and sent from GI after found to have active bleeding on pill cam study as outpatient. Patient seen by GI in ER and abhinav be admitted to ICU for close monitoring for acute blood loss anemia on anemia of chronic disease. Patient will be NPO after midnight. PPi iv daily, Serial cbc q4 and prep for push enteroscopy tomorrow morning. Patient can be transfused 1 unit of prbc now and rechekc hb. Considering her chf and ckd will sowly transfuse PRBC. Supprotive care for flu like symptoms (recent sick contact), resume home meds, gi/dvt prophyalxs full code. time spent>37 min..
--- NOTE | 2017-08-10 16:40 | Cons- Gastroenterology ---
General Information and HPI Consulting Request Date of Consult: 08/10/17 Requested By: ALBARO Hardy Amanda Reason for Consult: 1. Upper GI bleed 2. Abnormal video capsule endoscopy 3. Oozing vascular ectasia, distal duodenum/proximal jejunum Source of Information: patient Exam Limitations: no limitations History of Present Illness: Patient is a 61-year-old female who is a patient of Dr. Livan Hdz's and is well known to this practice. She has been admitted to [facility] for anemia at least three times and has been seen by myself in February and by Dr. Jackman, most recently in May. Dr. Hdz called me this afternoon telling october that Mrs. Vitale had a hemoglobin of 6.2 and was being admitted to [facility] from the ED. He was reading her video capsule endoscopy in the office, which showed active bleeding in the proximal small bowel due to vascular ectasia/arteriovenous malformations. She had a colonoscopy September by Dr. Livan Hdz for evaluation of anemia which was unremarkable. Subsequently, she had [address] Fred Hdz, the last on February 08, 2017. The first EGD showed a stomach full of blood which precluded adequate evaluation. A second upper endoscopy showed atrophic gastric mucosa with no explanation for the bleeding that had been noted previously. Patient had been seen earlier today at [facility] ED with a chief complaint of shortness of breath and she left there AMA. She has past medical history significant for COPD, dyslipidemia, CHF, Diabetes Mellitus, osteoporosis, chronic iron deficiency anemia, chronic kidney disease. Allergies/Medications Allergies: Coded Allergies: No Known Allergies (09/01/15) Home Med List: Albuterol Sulfate (Proair Hfa) 90 MCG HFA.AER.AD 2 PUF INH Q4 BREATHING PROBLEMS Albuterol Sulfate 2.5 MG/3 ML (0.083 %) VIAL.NEB 3 ML INH Q4-6 PRN PRN SHORTNESS OF BREATH . Amlodipine Besylate (Norvasc) 10 MG TABLET 10 MG PO DAILY blood pressure .. Aspirin (Ecotrin*) 81 MG TABLET.DR 1 TAB PO DAILY HEART HEALTH Carvedilol 25 MG TABLET 25 MG PO BID blood pressure .. Diphenoxylate HCl/Atropine (Lomotil 2.5-0.025 MG Tablet) 2.5 MG-0.025 MG TABLET 2 TAB PO DAILY DIARRHEA (Reported) Epoetin Elia (Procrit) 20,000 UNIT/ML VIAL 15,000 U SC QSUN anemia .. Fenofibrate (Tricor) 48 MG TABLET 1 TAB PO DAILY CHOLESTEROL Ferrous Sulfate 325 MG (65 MG IRON) TABLET.DR 325 MG PO DAILY supplement take 1 tab twice a day. Fluticasone/Salmeterol (Advair 250-50 Diskus) 250 MCG-50 MCG/DOSE BLST.W.DEV 1 PUF INH BID BREATHING PROBLEMS Furosemide (Lasix) 40 MG TABLET 1.5 TAB PO DAILY WATER RETENTION Hydralazine HCl 100 MG TABLET 1 TAB PO TID BLOOD PRESSURE take 1 tab three times a day.. Hydroxyzine Hydrochloride (Atarax) 25 MG TABLET 1 TAB PO BID UNKNOWN ( Reported) Insulin Aspart (Novolog) 100 UNIT/ML VIAL 0 UNITS SC TIDAC diabetes sugar unit <150 0 151-200 4 201-250 6 251-300 8 301-350 10 351-400 12 >400 14, call Insulin Detemir (Levemir) 100 UNIT/ML VIAL 14 UNITS SC AT BEDTIME diabetes .. Nepafenac (Ilevro) 0.3 % DROPS.SUSP EYE (Reported) Nicotine (Nicotine Patch) 14 MG/24 HOUR PATCH.TD24 1 PAT TD DAILY smoking cessation Oxycodone HCl/Acetaminophen (Percocet 7.5-325 MG Tablet) 7.5 MG-325 MG TABLET 1 TAB PO 4 TIMES/DAY PRN PAIN (Reported) Pantoprazole Sodium (Protonix) 40 MG TABLET.DR 1 TAB PO DAILY ACID REFLUX Pravastatin Sodium (Pravachol) 40 MG TABLET 1 TAB PO DAILY CHOLESTEROL Pregabalin (Lyrica) 50 MG CAPSULE 1 CAP PO TID PAIN (Reported) Trazodone HCl 150 MG TABLET 1 TAB PO QPM SLEEP (Reported) Current Medications: Current Medications Sig/Jannet Start time Last Medication Dose Route Stop Time Status Admin Albuterol Sulfate 3 ML ONCE ONE 08/10 1430 DC 08/10 INH 08/10 1431 1438 Ipratropium [place] 2.5 ML ONCE ONE 08/10 1430 DC 08/10 INH 08/10 1431 1438 Past History Travel History Traveled to [place] past 21 day No Medical History Neurological: NONE EENT: cataracts Cardiovascular: CHF, hypertension, hyperlipidemia Respiratory: COPD, pneumonia Gastrointestinal: GERD, iron deficiency anemia chronic, intermittent diarrhea Hepatic: cholecystitis, hepatitis C Renal: chronic kidney disease Musculoskeletal: falls, osteoporosis Psychiatric: NONE Endocrine: diabetes Blood Disorders: anemia Cancer(s): 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 EENTM: Denies: no symptoms. Cardiovascular: Denies: no symptoms. Respiratory: Reports: short of breath. GI: Reports: see HPI. Genitourinary: Denies: no symptoms. Musculoskeletal: Denies: no symptoms. Skin: Denies: no symptoms. Neurological/Psychological: Denies: no symptoms. Exam & Diagnostic Data Vital Signs and I&O Vital Signs Date Time Temp Pulse Resp B/P B/P Pulse O2 O2 Flow FiO2 Mean Ox Delivery Rate 08/10 1610 95 Nasal 4.0L Cannula 08/10 1608 98.4 83 20 174/90 95 Nasal 4.0L Cannula 08/10 1439 95 Nasal 3.0L Cannula 08/10 1411 97.5 80 20 156/75 74 Room Air Intake & Output 08/10 1600 08/10 0400 08/09 1600 08/09 0400 08/08 1600 08/08 0400 Intake Total Output Total Balance Patient 174 lb Weight Weight Reported by Patient Measurement Method Physical Exam General Appearance: well developed/nourished, alert, awake, anxious Head: atraumatic Ears, Nose, Throat: hearing grossly normal Neck: supple, full range of motion Respiratory: normal breath sounds, lungs clear Cardiovascular: regular rate/rhythm, Normal S1 and S2, no rub, murmur or gallop Gastrointestinal: normal bowel sounds, soft, non-tender, no organomegaly Neurologic/Psych: awake, alert, oriented x 3 Cranial Nerves: Cranial Nerves II-XII grossly intact Skin: intact, warm/dry Results Pertinent Lab Results: Laboratory Tests 08/10 08/10 1458 1423 Chemistry Sodium (137 - 145 mmol/L) 130 L Potassium (3.5 - 5.1 mmol/L) 4.8 Chloride (98 - 107 mmol/L) 100 Carbon Dioxide (22 - 30 mmol/L) 24 Anion Gap (5 - 16) 6 BUN (7 - 17 mg/dL) 40 H Creatinine (0.5 - 1.0 mg/dL) 2.4 H Estimated GFR (>60 ml/min) 21 L BUN/Creatinine Ratio (7 - 25 %) 16.7 Glucose (65 - 99 mg/dL) 182 H Lactic Acid (0.7 - 2.1 mmol/L) 0.9 Calcium (8.4 - 10.2 mg/dL) 7.8 L Total Bilirubin (0.2 - 1.3 mg/dL) 0.1 L AST (14 - 36 U/L) 25 ALT (9 - 52 U/L) 27 Alkaline Phosphatase (<127 U/L) 43 Troponin I (< 0.11 ng/ml) 0.04 Ino-V-Rqqevvnebtl Pept (<125 pg/mL) 5750 H Cancelled Total Protein (6.3 - 8.2 g/dL) 5.3 L Albumin (3.5 - 5.0 g/dL) 2.7 L Globulin (1.9 - 4.2 gm/dL) 2.6 Albumin/Globulin Ratio (1.1 - 2.2 %) 1.0 L Hematology CBC w Diff NO MAN DIFF REQ WBC (4.8 - 10.8 /CUMM) 8.7 RBC (4.20 - 5.40 /CUMM) 2.27 L Hgb (12.0 - 16.0 G/DL) 6.2 *L Hct (37 - 47 %) 20.0 L MCV (81.0 - 99.0 FL) 88.1 MCH (27.0 - 31.0 PG) 27.5 MCHC (33.0 - 37.0 G/DL) 31.2 L RDW (11.5 - 14.5 %) 16.8 H Plt Count (130 - 400 /CUMM) 366 MPV (7.4 - 10.4 FL) 7.6 Gran % (42.2 - 75.2 %) 80.6 H Lymphocytes % (20.5 - 51.1 %) 7.6 L Monocytes % (1.7 - 9.3 %) 11.6 H Eosinophils % (0 - 5 %) 0.1 Basophils % (0.0 - 2.0 %) 0.1 Absolute Granulocytes (1.4 - 6.5 /CUMM) 7.0 H Absolute Lymphocytes (1.2 - 3.4 /CUMM) 0.7 L Absolute Monocytes (0.10 - 0.60 /CUMM) 1.0 H Absolute Eosinophils (0.0 - 0.7 /CUMM) 0 Absolute Basophils (0.0 - 0.2 /CUMM) 0 Assessment/Plan Assessment/Recommendations: IMPRESSION: 1. Acute on Chronic Blood Loss Anemia 2. Small Bowel Vascular Ectasia see actively bleeding on video capsule endoscopy RECOMMENDATIONS: 1. Serial H&H every 4 hours 4 2. Protonix 40 mg IV twice a day 3. Transfuse to hemoglobin above 7 4. Nothing by mouth after midnight for push enteroscopy for control of bleeding tomorrow morning 5. Admit to ICU 6. 2 large-bore IV 7. Check PT/INR Consult Acknowledgment - Thank you for your consult request.
[2017-08-10 20:05] LABS: PT 14.1 SEC (9.4-12.5); PTT 31 SEC (25-37)
--- NOTE | 2017-08-10 21:52 | Event Note ---
See Addendum Event Note Event Note: Patient was noted to have worsening of her shortness of breath. Nursing staff checked oral temperature which was 100.6, tympanic temperature was checked which was 99.7, of note patient's temperature was checked as tympanic temperature in the ED and was 98.6. Patient's blood transfusion wasn't started at 7 PM, she received almost all of the blood. Blood transfusion was stopped, stat chest x-ray was ordered, along with IV methylprednisolone 60 mg 1 and IV Benadryl 25 mg 1. Labs were checked to rule out blood transfusion reaction which later on came back negative. Meanwhile, patient's shortness of breath worsened and she required TRC therapy along with epinephrine via nebulizer. Chest x-ray report showed pulmonary vascular congestion, IV Lasix 40 mg given. Patient to receive another dose of IV methylprednisolone on IV Benadryl visit in 6 hours. Sign-up was provided to the covering house staff to monitor closely. Will check blood cultures and sputum culture.
--- NOTE | 2017-08-10 23:23 | RADIOLOGY REPORT ---
EXAMINATION: XR PORTABLE CHEST CLINICAL INFORMATION: Shortness of breath. COMPARISON: Chest x-ray 08/10/2017, 3:08 PM TECHNIQUE: Portable frontal view of the chest was obtained. 10:07 PM FINDINGS: Mild central pulmonary vascular congestion is persistent compared to prior study. No overt pulmonary edema. No infiltrate or pleural effusion. IMPRESSION: Persistent mild central pulmonary vascular congestion.
[2017-08-11] VITALS: BP 180/80
[2017-08-11 00:49] LABS: ABSOLUTE BASOPHIL COUNT 0 /CUMM (0.0-0.2); ABSOLUTE EOSINOPHIL COUNT 0 /CUMM (0.0-0.7); ABSOLUTE GRANULOCYTE CT 10.9 /CUMM (1.4-6.5); ABSOLUTE LYMPH COUNT 0.4 /CUMM (1.2-3.4); ABSOLUTE MONOCYTE COUNT 0.6 /CUMM (0.10-0.60); BASOPHIL % 0 % (0.0-2.0); EOSINOPHIL % 0.1 % (0-5); GRANULOCYTE % 91.2 % (42.2-75.2); HEMATOCRIT 21.9 % (37-47); MEAN CORPUSCULAR HGB CONC 31.5 G/DL (33.0-37.0); MEAN CORPUSCULAR VOLUME 88.9 FL (81.0-99.0); MEAN PLATELET VOLUME 8.4 FL (7.4-10.4); PLATELET COUNT 336 /CUMM (130-400); RBC DISTRIBUTION WIDTH 16.8 % (11.5-14.5); RED BLOOD CELL CT 2.46 /CUMM (4.20-5.40)
[2017-08-11 04:56] LABS: ABSOLUTE BASOPHIL COUNT 0 /CUMM (0.0-0.2); ABSOLUTE EOSINOPHIL COUNT 0 /CUMM (0.0-0.7); ABSOLUTE GRANULOCYTE CT 9.4 /CUMM (1.4-6.5); ABSOLUTE LYMPH COUNT 0.5 /CUMM (1.2-3.4); ABSOLUTE MONOCYTE COUNT 0.4 /CUMM (0.10-0.60); BASOPHIL % 0 % (0.0-2.0); EOSINOPHIL % 0 % (0-5); GRANULOCYTE % 91.1 % (42.2-75.2); HEMATOCRIT 21.5 % (37-47); MEAN CORPUSCULAR HGB 27.5 PG (27.0-31.0); MEAN CORPUSCULAR VOLUME 88.8 FL (81.0-99.0); MEAN PLATELET VOLUME 8.1 FL (7.4-10.4); PLATELET COUNT 358 /CUMM (130-400); RED BLOOD CELL CT 2.42 /CUMM (4.20-5.40); WHITE BLOOD CELL COUNT 10.3 /CUMM (4.8-10.8)
[2017-08-11 08:00] VITALS: BP 138/64
--- NOTE | 2017-08-11 08:37 | Cons- CRCU ---
See Addendum Chino WILLIAMSONBrandy 08/11/17 0836: General Information and HPI Consulting Request Date of Consult: 08/11/17 Requested By: DR. Melvin Source of Information: patient, old records Exam Limitations: no limitations History of Present Illness: Patient is a 61-year-old female with past medical history significant for COPD, dyslipidemia, CHF, Diabetes Mellitus, osteoporosis, chronic iron deficiency anemia, chronic kidney disease,who presented to the hospital with chief complaint of dyspnea, productive cough for the past week. She has been admitted to [facility] for anemia at least three times Patient underwent video capsule endoscopy on Sunday with Dr. Hdz, which showed active bleeding in the proximal small bowel due to vascular ectasia/ arteriovenous malformations and presented to [place] ED with hemoglobin of 6.2 She had a colonoscopy September for evaluation of anemia which was unremarkable. Subsequently, she had 2 EGDs, the last on February 08, 2017. The first EGD showed a stomach full of blood which precluded adequate evaluation. A second upper endoscopy showed atrophic gastric mucosa with no explanation for the bleeding that had been noted previously. Patient had been seen earlier today at [facility] ED with a chief complaint of shortness of breath and she left there AMA. Yesterday patient received 1 unit of packed RBCs and developed SOB and fever posttransfusion requiring IV methylprednisolone 60 mg 1 and IV Benadryl 25 mg Labs were checked to rule out blood transfusion reaction which later on came back negative. Meanwhile, patient's shortness of breath worsened and she required TRC therapy along with epinephrine via nebulizer. Chest x-ray report showed pulmonary vascular congestion, IV Lasix 40 mg given as well. She received a dose of IV methylprednisone and Benadryl overnight. Tmax 100.6 Heart rate ranging in 90s Normal sinus rhythm Currently on BiPAP Intake 380 output 1090 H/H7.02/16 status post 1 unit transfusion, WBC 9.4 a platelets 388 stable Sodium 133 potassium 5.5, BUN 45, creatinine 2.4, calcium 8.0 phosphorus 5.5 Chest x-ray 08/10 Persistent mild central pulmonary vascular congestion. Patient underwent endoscopy and Colonoscopy in am with the following findings 1. Nodularity of the gastric fundus 2. Prominent atrophic prepyloric folds 3. Jejunal AVM with active bleeding controlled by a BiCAP electrocautery Allergies/Medications Allergies: Coded Allergies: No Known Allergies (09/01/15) Home Med List: Albuterol Sulfate (Proair Hfa) 90 MCG HFA.AER.AD 2 PUF INH Q4 BREATHING PROBLEMS Albuterol Sulfate 2.5 MG/3 ML (0.083 %) VIAL.NEB 3 ML INH Q4-6 PRN PRN SHORTNESS OF BREATH . Amlodipine Besylate (Norvasc) 10 MG TABLET 10 MG PO DAILY blood pressure .. Aspirin (Ecotrin*) 81 MG TABLET.DR 1 TAB PO DAILY HEART HEALTH Carvedilol 25 MG TABLET 25 MG PO BID blood pressure .. Diphenoxylate HCl/Atropine (Lomotil 2.5-0.025 MG Tablet) 2.5 MG-0.025 MG TABLET 2 TAB PO DAILY DIARRHEA (Reported) Epoetin Elia (Procrit) 20,000 UNIT/ML VIAL 15,000 U SC QSUN anemia .. Fenofibrate (Tricor) 48 MG TABLET 1 TAB PO DAILY CHOLESTEROL Ferrous Sulfate 325 MG (65 MG IRON) TABLET.DR 325 MG PO DAILY supplement take 1 tab twice a day. Fluticasone/Salmeterol (Advair 250-50 Diskus) 250 MCG-50 MCG/DOSE BLST.W.DEV 1 PUF INH BID BREATHING PROBLEMS Furosemide (Lasix) 40 MG TABLET 1.5 TAB PO DAILY WATER RETENTION Hydralazine HCl 100 MG TABLET 1 TAB PO TID BLOOD PRESSURE take 1 tab three times a day.. Hydroxyzine Hydrochloride (Atarax) 25 MG TABLET 1 TAB PO BID UNKNOWN ( Reported) Insulin Aspart (Novolog) 100 UNIT/ML VIAL 0 UNITS SC TIDAC diabetes sugar unit <150 0 151-200 4 201-250 6 251-300 8 301-350 10 351-400 12 >400 14, call Insulin Detemir (Levemir) 100 UNIT/ML VIAL 14 UNITS SC AT BEDTIME diabetes .. Nepafenac (Ilevro) 0.3 % DROPS.SUSP EYE (Reported) Nicotine (Nicotine Patch) 14 MG/24 HOUR PATCH.TD24 1 PAT TD DAILY smoking cessation Oxycodone HCl/Acetaminophen (Percocet 7.5-325 MG Tablet) 7.5 MG-325 MG TABLET 1 TAB PO 4 TIMES/DAY PRN PAIN (Reported) Pantoprazole Sodium (Protonix) 40 MG TABLET.DR 1 TAB PO DAILY ACID REFLUX Pravastatin Sodium (Pravachol) 40 MG TABLET 1 TAB PO DAILY CHOLESTEROL Pregabalin (Lyrica) 50 MG CAPSULE 1 CAP PO TID PAIN (Reported) Trazodone HCl 150 MG TABLET 1 TAB PO QPM SLEEP (Reported) Review of Systems Review of Systems Constitutional: Reports: see HPI. 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 Home Services at Home: [facility] Smoking Status: Current Everyday Smoker Exam & Diagnostic Data Last 24 Hrs of Vital Signs/I&O Vital Signs Date Time Temp Pulse Resp B/P B/P Pulse O2 O2 Flow FiO2 Mean Ox Delivery Rate 08/11 1200 97 BIPAP 35% 08/11 1117 65 97 08/11 1031 68 126/84 08/11 1029 68 140/80 08/11 0800 98.6 83 26 138/64 100 Nasal 4.0L Cannula 08/11 0800 94 Nasal 3.0L Cannula 08/11 0400 96 Nasal 5.0L Cannula 08/11 0052 80 28 180/80 08/11 0000 96 Nasal 5.0L Cannula 08/11 0000 100.5 92 36 180/80 96 Nasal 5.0L Cannula 08/10 2341 92 Nasal 5.0L Cannula 08/10 2331 100.5 08/10 2100 94 Nasal 4.0L Cannula 08/10 1936 98.6 86 20 162/94 95 Nasal 4.0L Cannula 08/10 1855 98.6 88 19 179/79 96 Nasal 2.0L Cannula 08/10 1830 Nasal 3.0L Cannula 08/10 1750 98.4 83 20 174/90 08/10 1610 95 Nasal 4.0L Cannula 08/10 1608 98.4 83 20 174/90 95 Nasal 4.0L Cannula 08/10 1439 95 Nasal 3.0L Cannula 08/10 1411 97.5 80 20 156/75 74 Room Air Intake & Output 08/11 1600 08/11 0800 08/11 0000 Intake Total 0 440 Output Total 490 600 Balance -490 -160 Intake, Blood 300 Product Intake, IV 80 Intake, Oral 0 60 Number 2 Bowel Movements Output, Urine 490 600 Patient 180 lb Weight Weight Bed scale Measurement Method Physical Exam General Appearance: alert, awake, on BIPAP Neck: normal inspection Respiratory: normal breath sounds, chest non-tender Cardiovascular: S1 S2 Gastrointestinal: normal bowel sounds, soft, non-tender Extremities: no edema Last 48 Hrs of Labs/Olu: Laboratory Tests 08/11/17 0800: CBC w Diff MAN DIFF ORDERED, RBC 2.82 L, MCV 88.2, MCH 27.6, MCHC 31.3 L, RDW 16.5 H, MPV 8.4, Gran % 90.8 H, Lymphocytes % 6.3 L, Monocytes % 2.8, Eosinophils % 0.1, Basophils % 0, Absolute Granulocytes 8.6 H, Absolute Lymphocytes 0.6 L, Absolute Monocytes 0.3, Absolute Eosinophils 0, Absolute Basophils 0, Platelet Estimate VERIFIED BY SMEAR, Polychromasia 1+, Basophilic Stippling 1+, Anisocytosis 1+ 08/11/17 0415: Anion Gap 9, Estimated GFR 21 L, Glucose 253 H, Calcium 8.0 L, Phosphorus 5.5 H, Magnesium 2.1, Total Bilirubin 0.2, AST 23, ALT 33, Albumin 2.7 L, CBC w Diff NO MAN DIFF REQ, RBC 2.42 L, MCV 88.8, MCH 27.5, MCHC 31.0 L, RDW 17.0 H , MPV 8.1, Gran % 91.1 H, Lymphocytes % 5.3 L, Monocytes % 3.6, Eosinophils % 0, Basophils % 0, Absolute Granulocytes 9.4 H, Absolute Lymphocytes 0.5 L, Absolute Monocytes 0.4, Absolute Eosinophils 0, Absolute Basophils 0 08/11/17 0010: CBC w Diff MAN DIFF ORDERED, RBC 2.46 L, MCV 88.9, MCH 28.0, MCHC 31.5 L, RDW 16.8 H, MPV 8.4, Gran % 91.2 H, Lymphocytes % 3.6 L, Monocytes % 5.1, Eosinophils % 0.1, Basophils % 0, Absolute Granulocytes 10.9 H, Segmented Neutrophils 89 H, Band Neutrophils 9 H, Absolute Lymphocytes 0.4 L, Lymphocytes 1 L, Monocytes 1 L, Absolute Monocytes 0.6, Absolute Eosinophils 0 , Absolute Basophils 0, Platelet Estimate ADEQUATE, Polychromasia 1+, Poikilocytosis FEW, Anisocytosis 1+, Ovalocytes FEW, Fld Total RBCs Counted 100 08/10/17 1748: PT 14.1 H, INR 1.35 H, APTT 31 08/10/17 1715: Lactic Acid Cancelled 08/10/17 1458: Anion Gap 6, Estimated GFR 21 L, BUN/Creatinine Ratio 16.7, Glucose 182 H, Lactic Acid 0.9, Calcium 7.8 L, Total Bilirubin 0.1 L, AST 25, ALT 27, Alkaline Phosphatase 43, Troponin I 0.04, Iwy-H-Eojswpqbsuo Pept 5750 H, Total Protein 5.3 L, Albumin 2.7 L, Globulin 2.6, Albumin/Globulin Ratio 1.0 L, CBC w Diff NO MAN DIFF REQ, RBC 2.27 L, MCV 88.1, MCH 27.5, MCHC 31.2 L, RDW 16.8 H, MPV 7.6, Gran % 80.6 H, Lymphocytes % 7.6 L, Monocytes % 11.6 H, Eosinophils % 0.1, Basophils % 0.1, Absolute Granulocytes 7.0 H, Absolute Lymphocytes 0.7 L, Absolute Monocytes 1.0 H, Absolute Eosinophils 0, Absolute Basophils 0 08/10/17 1423: Fqz-R-Ugmgyyvdfro Pept Cancelled Microbiology 08/10 1551 NASOPHARYN: Influenza Virus A & B Rapid Smear - COMP Assessment/Plan CRCU Impression/Plan: Patient is a 61-year-old female with past medical history significant for COPD, dyslipidemia, CHF, Diabetes Mellitus, osteoporosis, chronic iron deficiency anemia, chronic kidney disease,who presented to the hospital with chief complaint of dyspnea, productive cough for the past week. She has been admitted to [facility] for anemia at least three times She is currently being treated and evaluated for following conditions. #Acute blood loss anemia likely secondary to Upper GI bleed Patient presented to [place] ED with hemoglobin of 6.2 s/p video capsule endoscopy on Sunday with Dr. Hdz positive for active bleeding in the proximal small bowel due to vascular ectasia/arteriovenous malformations -Patient is status post endoscopy with above-mentioned findings. H&H stable currently hemodynamically stable. -Status post 1 unit of PRBC -We are going to advance patient needs to clear liquid -Monitor H&H every 12 (Transfuse to hemoglobin above 7) -IV Protonix once a day, switched to oral form tomorrow #Probable transfusion reaction versus acute pulmonary edema from blood transfusion Yesterday patient received 1 unit of packed RBCs and developed SOB and fever posttransfusion requiring IV methylprednisolone 60 mg 1 and IV Benadryl 25 mg report showed pulmonary vascular congestion for which she received IV Lasix 40 mg as well he received a dose of IV methylprednisone and Benadryl overnight. -Continue to monitor #Acute on chronic respiratory failure likely secondary to probable systolic heart failure in setting of previous diastolic heart dysfunction; She also has history of mild to moderate COPD currently no significant exacerbation -Consider echocardiogram and evaluation by cardiology -Lasix 40 mg x1 -On BiPAP presently can discontinue later -if she becomes somnolent, will do ABG #DM -Accu-Cheks and insulin sliding scale -Levemir at lower dose of 7 units at bedtime, consider increasing the dose as her diet advances. -Patient is on insulin at home and takes 14 units of Levemir twice a day #History of hypertension -Currently on amlodipine and beta bella -Her medications include hydralazine as well and restart as blood pressure allows FC/Clear liquids/DVT prohylaxis with ALPS only Consult Acknowledgment - Thank you for your consult request. Tyson WILLIAMSON,[facility] 08/11/17 1242: Assessment/Plan CRCU Other Findings/Comments: Seen and examined independently This is a lady with chronic anemia with upper GI bleed, abnormal video capsule endoscopy, previous vascular ectasia was admitted to the hospital with significant anemia. She does have significant COPD, dyslipidemia, medication noncompliance, hypertension, previous heart failure, diabetes which is uncontrolled, osteoporosis and chronic anemia. 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 Subsequently she did have a small bowel enteroscopy with control of bleeding and biopsy. 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 The bleeding seems to have stopped. Patient was also noted to have probably a transfusion reaction versus congestive heart failure now she is in acute on chronic respiratory insufficiency requiring BiPAP. Patient has received intravenous steroids and Benadryl and Lasix as well. She seems to be improving now. Her issues include Acute blood loss anemia due to a jejunal bleed status post endoscopy with good results Acute on chronic respiratory failure Probable transfusion reaction versus acute pulmonary edema from blood transfusion History of mild to moderate COPD with no significant exacerbation Hypertension at times uncontrolled Previous diastolic heart dysfunction now with probable systolic heart failure Chronic kidney disease Diabetes which seems to be uncontrolled Recent URI which shortness of breath RECOMMENDATION Watch her in the ICU Follow hemoglobin and hematocrit and creatinine Continue BiPAP for now and can be discontinued later Repeat intravenous Lasix 140 mg Continue DuoNeb Continue proton pump inhibitor Diet per GI keep nothing by mouth for now Follow fingerstick glucose If she becomes somnolent then we would do an ABG Continue her blood pressure medications by mouth if okay with GI Follow closely total time spent 40 minutes Consult Acknowledgment - Thank you for your consult request. If she becomes somnolent then we would do an ABG Continue her blood pressure medications by mouth if okay with GI Follow closely total time spent 40 minutes Consult Acknowledgment - Thank you for your consult request.
[2017-08-11 09:02] LABS: ABSOLUTE BASOPHIL COUNT 0 /CUMM (0.0-0.2); ABSOLUTE EOSINOPHIL COUNT 0 /CUMM (0.0-0.7); ABSOLUTE GRANULOCYTE CT 8.6 /CUMM (1.4-6.5); ABSOLUTE LYMPH COUNT 0.6 /CUMM (1.2-3.4); ABSOLUTE MONOCYTE COUNT 0.3 /CUMM (0.10-0.60); BASOPHIL % 0 % (0.0-2.0); EOSINOPHIL % 0.1 % (0-5); GRANULOCYTE % 90.8 % (42.2-75.2); HEMATOCRIT 24.9 % (37-47); MEAN CORPUSCULAR HGB 27.6 PG (27.0-31.0); MEAN CORPUSCULAR HGB CONC 31.3 G/DL (33.0-37.0); MEAN CORPUSCULAR VOLUME 88.2 FL (81.0-99.0); MEAN PLATELET VOLUME 8.4 FL (7.4-10.4); PLATELET COUNT 388 /CUMM (130-400); RBC DISTRIBUTION WIDTH 16.5 % (11.5-14.5); RED BLOOD CELL CT 2.82 /CUMM (4.20-5.40); WHITE BLOOD CELL COUNT 9.4 /CUMM (4.8-10.8)
--- NOTE | 2017-08-11 09:52 | Proc Note Endoscopy ---
See Addendum Endoscopy Procedure Medical History: unchanged Mental Status: alert/oriented Heart/Lung Eval Prior to Sedation: within normal limits Candidate for Sedation? Yes Procedure Date: 08/11/17 Procedure Type: Small Bowel Enteroscopy w/ Control of Bleeding and Biopsy [employer] Craftsman: MD Carrasco Deborah E. ASA Classification: III Indications: 1. Small Bowel Vascular Ectasia 2. Acute Blood Loss Anemia 3. Melena 4. Precipitous Drop in Hemoglobin and Hematocrit Instrument: diagnostic gastroscope, Pediatric Colonoscope Meds Received: MAC Patient's Tolerance: good Complications: none Extent Reached: [id number] Jejunum Procedure: Note: Informed consent was obtained prior to procedure. Risks and benefits of procedure were discussed with patient. Potential complications discussed included perforation, bleeding, abdominal pain, and adverse reaction to medications. It was explained that iany or all of these complications could result in the need for extended hospitalization, emergency surgery, transfusion of packed red blood cells (with the risk of HIV or hepatitis virus), intubation with mechanical ventilation, and possible need for antibiotics. It was further explained that an existing tumor polyp or mucosal abnormality might not be identified at the time of the procedure thus resulting in a missed opportunity for early diagnosis and treatment of a gastrointestinal malignancy or disease with possible interval development of a gastrointestinal cancer or other disease with possible worsening of clinical condition in the interval between endoscopies. It was also discussed that complications are not limited to those listed above. Possible alternatives to endoscopic treatment or evaluation were discussed. All questions were answered. Continuous EKG and blood pressure monitors were attached. Supplemental oxygen was provided with O2 Sat monitoring. Patient was placed in the left lateral decubitus position. A surgical timeout was performed. All persons in the room were identified. All concerns were expressed and answered. A bite block was placed in the mouth and sedation was administered by anesthesia and titrated to comfort prior to starting the procedure. The Olympus upper endoscope was advanced under direct vision to the level of the third portion of the duodenum. Esophagus: The esophagus had a normal mucosal vascular pattern throughout its entirety. The GE junction was identified and was normal. Stomach: The stomach had atrophic, erythematous and edematous prepyloric folds which were biopsied. Retroflexed view of the cardiofundic region revealed marked nodularity. This was biopsied. There were no ulcers or masses. The pylorus was patent and easily intubated. Duodenum: The duodenum was fully examined from bulb down to the third portion. There was a normal mucosal vascular pattern throughout. Jejunum: The pediatric colonoscope was advanced to the level of the jejunum. There was an 8 mm AVM with active bleeding that was noted and it was treated with BiCAP electrocautery at a setting of 10 W. The scope was advanced further and there is a second actively bleeding small AVM which was treated at the same settings. The scope was advanced to the hub and slowly withdrawn. Two additional AVM were noted one of which was actively bleeding. Both were treated and in the one that was bleeding it was controlled completely. With the endoscope in the forward-viewing position, it was slowly withdrawn and all areas were re-inspected and findings are as described previously. Patient tolerated the procedure well. EBL: 2 ml Specimens Removed: 1. Pre-pyloric folds 2. Nodular Gastric Fundus Findings: 1. Nodularity of the gastric fundus 2. Prominent atrophic prepyloric folds 3. Jejunal AVM with active bleeding controlled by a BiCAP electrocautery Impression: 1. Nodularity of the gastric fundus 2. Prominent atrophic prepyloric folds 3. Jejunal AVM with active bleeding controlled by a BiCAP electrocautery Recommendations: 1. Serial H&H 2. Continue PPI
[2017-08-11 16:00] VITALS: BP 120/70
[2017-08-11 16:38] LABS: ABSOLUTE BASOPHIL COUNT 0 /CUMM (0.0-0.2); ABSOLUTE EOSINOPHIL COUNT 0 /CUMM (0.0-0.7); ABSOLUTE LYMPH COUNT 0.5 /CUMM (1.2-3.4); ABSOLUTE MONOCYTE COUNT 0.3 /CUMM (0.10-0.60); BASOPHIL % 0 % (0.0-2.0); EOSINOPHIL % 0 % (0-5); GRANULOCYTE % 90.1 % (42.2-75.2); HEMATOCRIT 21.1 % (37-47); MEAN CORPUSCULAR HGB CONC 31.4 G/DL (33.0-37.0); MEAN PLATELET VOLUME 8.5 FL (7.4-10.4); PLATELET COUNT 336 /CUMM (130-400); RED BLOOD CELL CT 2.38 /CUMM (4.20-5.40); WHITE BLOOD CELL COUNT 7.7 /CUMM (4.8-10.8)
[2017-08-11 23:23] LABS: ABSOLUTE BASOPHIL COUNT 0 /CUMM (0.0-0.2); ABSOLUTE EOSINOPHIL COUNT 0 /CUMM (0.0-0.7); ABSOLUTE GRANULOCYTE CT 7.6 /CUMM (1.4-6.5); ABSOLUTE LYMPH COUNT 0.4 /CUMM (1.2-3.4); BASOPHIL % 0 % (0.0-2.0); EOSINOPHIL % 0 % (0-5); GRANULOCYTE % 84.6 % (42.2-75.2); HEMATOCRIT 24.2 % (37-47); MEAN CORPUSCULAR HGB CONC 31.3 G/DL (33.0-37.0); MEAN CORPUSCULAR VOLUME 86.4 FL (81.0-99.0); MEAN PLATELET VOLUME 8.2 FL (7.4-10.4); PLATELET COUNT 364 /CUMM (130-400); RED BLOOD CELL CT 2.81 /CUMM (4.20-5.40)
[2017-08-12] VITALS: BP 140/60
[2017-08-12 06:29] LABS: ABSOLUTE BASOPHIL COUNT 0 /CUMM (0.0-0.2); ABSOLUTE EOSINOPHIL COUNT 0 /CUMM (0.0-0.7); ABSOLUTE GRANULOCYTE CT 7.6 /CUMM (1.4-6.5); ABSOLUTE LYMPH COUNT 0.5 /CUMM (1.2-3.4); ABSOLUTE MONOCYTE COUNT 0.8 /CUMM (0.10-0.60); BASOPHIL % 0 % (0.0-2.0); EOSINOPHIL % 0 % (0-5); GRANULOCYTE % 85.8 % (42.2-75.2); HEMATOCRIT 24.6 % (37-47); MEAN CORPUSCULAR HGB CONC 31.4 G/DL (33.0-37.0); MEAN CORPUSCULAR VOLUME 86.1 FL (81.0-99.0); MEAN PLATELET VOLUME 8.3 FL (7.4-10.4); PLATELET COUNT 363 /CUMM (130-400); RED BLOOD CELL CT 2.86 /CUMM (4.20-5.40)
[2017-08-12 06:49] LABS: WHITE BLOOD CELL COUNT 8.8 /CUMM (4.8-10.8)
[2017-08-12 08:00] VITALS: BP 140/68
--- NOTE | 2017-08-12 08:45 | PN- Resident CRCU ---
Subjective HPI/CRCU Issues: The patient was seen and examined this morning. The patient wants her Hilton catheter to be discontinued. Also she would like to be able to walk and take a shower. She also wants her diet to be advanced. She states that her shortness of breath has much improved. The patient denies any dizziness, lightheadedness, chest pain, abdominal pain, blood in the stool, hematuria, urinary symptoms. She has underwent 2 units of PRBC transfusion since admission. Hemoglobin this morning 7.7, hematocrit 24.6 Objective Vital Signs & I&O Last 8 Hrs of Vitals and I&O: Vital Signs Date Time Temp Pulse Resp B/P B/P Pulse O2 O2 Flow FiO2 Mean Ox Delivery Rate 08/12 0932 70 154/72 08/12 0932 70 154/72 08/12 0932 70 154/72 08/12 0800 96.9 62 16 140/68 99 Nasal 1.0L Cannula 08/12 0800 95 Nasal 1.0L Cannula 08/12 0400 97 Nasal 1.0L Cannula 08/12 0120 56 97 08/12 0000 95 Nasal 1.0L Cannula 08/12 0000 98.7 60 12 140/60 95 Nasal 1.0L Cannula 08/11 2223 70 157/72 08/11 2222 71 157/72 08/11 2000 95 Nasal 3.0L Cannula 08/11 1859 95 Nasal 3.0L Cannula 08/11 1740 72 146/68 08/11 1600 95 Nasal 3.0L Cannula 08/11 1600 98.1 73 20 120/70 96 Nasal 3.0L Cannula 08/11 1355 67 99 08/11 1200 97 BIPAP 35% 08/11 1117 65 97 08/11 1031 68 126/84 08/11 1029 68 140/80 Exam General Appearance: no apparent distress, alert, awake, comfortable Other Physical Findings: HEENT Atraumatic, PERRLA, EOMI, Mucous Membr. moist/pink Neck Supple, No JVD, No thryomegaly, +2 Carotid Pulse wo Bruit, No LAD Lymphatic Axillary nl, Cervical nl Cardiovascular Regular Rate, Normal S1, Normal S2, systolic murmur Lungs expiratory wheezes Abdomen Normal Bowel Sounds, Soft, No Tenderness, No Hepatospenomegaly, No Masses Neurological Normal Speech, Strength at 5/5 X4 Ext, Normal Tone, Sensation Intact, Cranial Nerves 3-12 NL Extremities No Clubbing, No Cyanosis, Normal Pulses, No Tenderness/Swelling, B/L pedal edema Vascular Normal Pulses, Pulses Symmetrical Current Medications: Current Medications Sig/Jannet Start time Last Medication Dose Route Stop Time Status Admin Albuterol Sulfate 3 ML Q4P PRN 08/10 2345 AC INH Albuterol Sulfate 3 ML TID 08/10 2200 AC 08/11 INH 1855 Amlodipine Besylate 10 MG DAILY 08/11 1621 DC PO Amlodipine Besylate 10 MG DAILY 08/10 1746 AC 08/12 PO 0932 Calcium Gluconate 1 GM ONCE ONE 08/11 1915 DC 08/11 Sodium Chloride 100 ML IV 08/11 Carvedilol 25 MG BID 08/10 2200 AC 08/12 PO 0932 Dextrose 25 GM ONCE ONE 08/11 191 DC 08/11 IV 08/11 1915 203 Diphenhydramine HCl 25 MG ONCE ONE 08/11 1030 DC 08/11 IV 08/11 1031 1031 Fenofibrate 48 MG DAILY 08/12 1000 AC 08/12 PO 0932 Furosemide 40 MG ONCE ONE 08/11 1315 DC 08/11 IV 08/11 1316 1324 Guaifenesin 10 ML Q6PRN PRN 08/10 2115 AC 08/10 PO 2332 Hydralazine HCl 100 MG TID 08/11 1627 AC 08/12 PO 0932 Hydroxyzine HCl 25 MG BID 08/11 2200 AC 08/12 PO 0932 Insulin Detemir 7 UNITS AT BEDTIME 08/10 2200 AC 08/11 SC 1813 Insulin Human NPH 10 UNITS ONCE ONE 08/11 191 CAN SC 08/11 1915 Insulin Human Regular 10 UNITS .STK-MED ONE 08/12 0129 DC IV 08/12 0130 Insulin Human Regular 10 UNITS ONCE ONE 08/11 1930 DC 08/11 IV 08/11 1931 2040 Insulin Human Regular 0 Q6 08/11 0715 AC 08/12 SC 0611 Ipratropium [place] 2.5 ML ONCE ONE 08/11 1330 DC INH 08/11 1331 Nicotine 14 MG DAILY 08/11 1621 AC 08/12 TOP 0932 Omeprazole 40 MG DAILY AC 08/12 0700 AC 08/12 PO 0611 Oxycodone/ 1 TAB Q4P PRN 08/11 1645 AC 08/12 Acetaminophen PO 0938 Pantoprazole Sodium 40 MG BID 08/10 2251 DC 08/11 IV 1029 Pravastatin Sodium 40 MG 1700 08/11 1700 AC 08/11 PO 1739 Racepinephrine 0.5 ML Q4P PRN 08/10 2345 AC 08/10 INH 2343 Sodium Polystyrene 60 ML ONCE ONE 08/12 0645 DC 08/12 Sulfonate PO 08/12 0646 0744 Trazodone HCl 150 MG QPM 08/11 2200 AC 08/11 PO 2221 Impression/Plan Impression/Problem List Impression: This is a 61-year-old lady with past medical history significant for COPD, CHF, diabetes, GERD, hep C, IVDU, hypertension, chronic anemia admitted to the hospital with acute blood loss anemia and worsening of dyspnea. Assessment/plan: #Acute blood loss anemia likely secondary to Upper GI bleed:Patient presented to [place] ED with hemoglobin of 6.2 s/p video capsule endoscopy on Sunday with Dr. Hdz positive for active bleeding in the proximal small bowel due to vascular ectasia/arteriovenous malformations -Patient is status post endoscopy with above-mentioned findings. H&H stable currently hemodynamically stable. -Status post 2 unit of PRBC -We are going to advance patient needs to clear liquid -Monitor H&H every 12 (Transfuse to hemoglobin above 7) -c/w oral PPIs #Probable transfusion reaction versus acute pulmonary edema from blood transfusion:On the day of admission, the patient received 1 unit of packed RBCs and developed SOB IV methylprednisolone 60 mg 1 and IV Benadryl 25 mg 1. She required TRC therapy along with epinephrine via nebulizer. Chest x-ray report showed pulmonary vascular congestion for which she received IV Lasix 40 mg. Labs were negative for any blood transfusion the reactions. The patient has received a second unit of blood transfusion yesterday. #Acute on chronic respiratory failure: likely secondary to probable systolic heart failure in setting of previous diastolic heart dysfunction; She also has history of mild to moderate COPD currently no significant exacerbation -Consider echocardiogram and evaluation by cardiology -off BiPAP -if she becomes somnolent, will do ABG #ADDY and hyperkalemia: -Will check UA -Nephrology consult -Low K diet #DM: -Accu-Cheks and insulin sliding scale -Levemir at lower dose of 7 units at bedtime, consider increasing the dose as her diet advances. -Patient is on insulin at home and takes 14 units of Levemir twice a day #History of hypertension: -Currently on amlodipine and beta bella, and hydralazine -Restart as blood pressure allows DVT prohylaxis with ALPS only Problem List: 1. Anemia Pain Ratin Tomorrow's Labs & Rationales: CBC to monitor H&H ICU bundle to monitor Cr Plan DVT/Prophylaxis: mechanical
--- NOTE | 2017-08-12 08:54 | PN- CRCU ---
Subjective HPI/Critical Care Issues: Much improved sig wheezing noted Wishes to take a shower Objective Current Medications: Current Medications Sig/Jannet Start time Last Medication Dose Route Stop Time Status Admin Albuterol Sulfate 3 ML Q4P PRN 08/10 2345 AC INH Albuterol Sulfate 3 ML TID 08/10 2200 AC 08/11 INH 1855 Amlodipine Besylate 10 MG DAILY 08/11 1621 DC PO Amlodipine Besylate 10 MG DAILY 08/10 1746 AC 08/11 PO 1029 Calcium Gluconate 1 GM ONCE ONE 08/11 191 DC 08/11 Sodium Chloride 100 ML IV 08/11 Carvedilol 25 MG BID 08/10 2200 AC 08/11 PO 2222 Dextrose 25 GM ONCE ONE 08/11 1915 DC 08/11 IV 08/11 1915 203 Diphenhydramine HCl 25 MG ONCE ONE 08/11 1030 DC 08/11 IV 08/11 1031 1031 Fenofibrate 48 MG DAILY 08/12 1000 AC PO Fentanyl Citrate 100 MCG .STK-MED ONE 08/11 0856 DC IM 08/11 0857 Furosemide 40 MG ONCE ONE 08/11 1315 DC 08/11 IV 08/11 1316 1324 Guaifenesin 10 ML Q6PRN PRN 08/10 2115 AC 08/10 PO 2332 Hydralazine HCl 100 MG TID 08/11 1627 AC 08/11 PO 2223 Hydroxyzine HCl 25 MG BID 08/11 2200 AC 08/11 PO 2223 Insulin Detemir 7 UNITS AT BEDTIME 08/10 2200 AC 08/11 SC 1813 Insulin Human NPH 10 UNITS ONCE ONE 08/11 1915 CAN SC 08/11 191 Insulin Human Regular 10 UNITS ONCE ONE 08/11 1930 DC 08/11 IV 08/11 193 2040 Insulin Human Regular 0 Q6 08/11 0715 AC 08/12 SC 0611 Ipratropium [place] 2.5 ML ONCE ONE 08/11 1330 DC INH 08/11 1331 Nicotine 14 MG DAILY 08/11 1621 AC 08/11 TOP 1740 Omeprazole 40 MG DAILY AC 08/12 0700 AC 08/12 PO 0611 Oxycodone/ 1 TAB Q4P PRN 08/11 1645 AC 08/11 Acetaminophen PO 2221 Pantoprazole Sodium 40 MG BID 08/10 2251 DC 08/11 IV 1029 Pravastatin Sodium 40 MG 1700 08/11 1700 AC 08/11 PO 1739 Racepinephrine 0.5 ML Q4P PRN 08/10 2345 AC 08/10 INH 2343 Sodium Polystyrene 60 ML ONCE ONE 08/12 0645 DC 08/12 Sulfonate PO 08/12 0646 0744 Trazodone HCl 150 MG QPM 08/11 2200 AC 08/11 PO 2221 Laboratory Tests 08/12 08/11 0600 2305 Chemistry Sodium (137 - 145 mmol/L) 130 L 130 L Potassium (3.5 - 5.1 mmol/L) 5.3 H 5.0 Chloride (98 - 107 mmol/L) 100 98 Carbon Dioxide (22 - 30 mmol/L) 22 20 L Anion Gap (5 - 16) 8 12 BUN (7 - 17 mg/dL) 59 H 56 H Creatinine (0.5 - 1.0 mg/dL) 2.3 H 2.6 H Estimated GFR (>60 ml/min) 22 L 19 L Glucose (65 - 99 mg/dL) 157 H 263 H Calcium (8.4 - 10.2 mg/dL) 8.0 L 8.3 L Phosphorus (2.5 - 4.5 mg/dL) 6.1 H 6.5 H Magnesium (1.6 - 2.3 mg/dL) 2.3 2.2 Total Bilirubin (0.2 - 1.3 mg/dL) 0.3 0.3 AST (14 - 36 U/L) 27 17 ALT (9 - 52 U/L) 29 30 Albumin (3.5 - 5.0 g/dL) 2.6 L 2.8 L Hematology CBC w Diff NO MAN DIFF REQ WBC (4.8 - 10.8 /CUMM) 8.8 9.0 RBC (4.20 - 5.40 /CUMM) 2.86 L 2.81 L Hgb (12.0 - 16.0 G/DL) 7.7 L 7.6 L Hct (37 - 47 %) 24.6 L 24.2 L MCV (81.0 - 99.0 FL) 86.1 86.4 MCH (27.0 - 31.0 PG) 27.0 27.0 MCHC (33.0 - 37.0 G/DL) 31.4 L 31.3 L RDW (11.5 - 14.5 %) 19.0 H 19.0 H Plt Count (130 - 400 /CUMM) 363 364 MPV (7.4 - 10.4 FL) 8.3 8.2 Gran % (42.2 - 75.2 %) 85.8 H 84.6 H Lymphocytes % (20.5 - 51.1 %) 5.4 L 4.4 L Monocytes % (1.7 - 9.3 %) 8.8 11.0 H Eosinophils % (0 - 5 %) 0 0 Basophils % (0.0 - 2.0 %) 0 0 Absolute Granulocytes (1.4 - 6.5 /CUMM) 7.6 H 7.6 H Absolute Lymphocytes (1.2 - 3.4 /CUMM) 0.5 L 0.4 L Absolute Monocytes (0.10 - 0.60 /CUMM) 0.8 H 1.0 H Absolute Eosinophils (0.0 - 0.7 /CUMM) 0 0 Absolute Basophils (0.0 - 0.2 /CUMM) 0 0 08/11 08/11 1610 0800 Chemistry Sodium (137 - 145 mmol/L) 130 L Potassium (3.5 - 5.1 mmol/L) 5.6 H Chloride (98 - 107 mmol/L) 98 Carbon Dioxide (22 - 30 mmol/L) 21 L Anion Gap (5 - 16) 11 BUN (7 - 17 mg/dL) 57 H Creatinine (0.5 - 1.0 mg/dL) 2.4 H Estimated GFR (>60 ml/min) 21 L Glucose (65 - 99 mg/dL) 398 H Calcium (8.4 - 10.2 mg/dL) 7.8 L Phosphorus (2.5 - 4.5 mg/dL) 6.9 H Magnesium (1.6 - 2.3 mg/dL) 2.2 Total Bilirubin (0.2 - 1.3 mg/dL) 0.2 AST (14 - 36 U/L) 26 ALT (9 - 52 U/L) 33 Albumin (3.5 - 5.0 g/dL) 2.7 L Hematology CBC w Diff NO MAN DIFF REQ MAN DIFF ORDERED WBC (4.8 - 10.8 /CUMM) 7.7 9.4 RBC (4.20 - 5.40 /CUMM) 2.38 L 2.82 L Hgb (12.0 - 16.0 G/DL) 6.6 *L 7.8 L Hct (37 - 47 %) 21.1 L 24.9 L MCV (81.0 - 99.0 FL) 89.0 88.2 MCH (27.0 - 31.0 PG) 28.0 27.6 MCHC (33.0 - 37.0 G/DL) 31.4 L 31.3 L RDW (11.5 - 14.5 %) 17.0 H 16.5 H Plt Count (130 - 400 /CUMM) 336 388 MPV (7.4 - 10.4 FL) 8.5 8.4 Gran % (42.2 - 75.2 %) 90.1 H 90.8 H Lymphocytes % (20.5 - 51.1 %) 6.3 L 6.3 L Monocytes % (1.7 - 9.3 %) 3.6 2.8 Eosinophils % (0 - 5 %) 0 0.1 Basophils % (0.0 - 2.0 %) 0 0 Absolute Granulocytes (1.4 - 6.5 /CUMM) 7.0 H 8.6 H Absolute Lymphocytes (1.2 - 3.4 /CUMM) 0.5 L 0.6 L Absolute Monocytes (0.10 - 0.60 /CUMM) 0.3 0.3 Absolute Eosinophils (0.0 - 0.7 /CUMM) 0 0 Absolute Basophils (0.0 - 0.2 /CUMM) 0 0 Platelet Estimate (ADEQUATE) VERIFIED BY SMEAR Polychromasia 1+ Basophilic Stippling 1+ Anisocytosis 1+ 08/11 08/11 0415 0010 Chemistry Sodium (137 - 145 mmol/L) 133 L Potassium (3.5 - 5.1 mmol/L) 5.5 H Chloride (98 - 107 mmol/L) 101 Carbon Dioxide (22 - 30 mmol/L) 23 Anion Gap (5 - 16) 9 BUN (7 - 17 mg/dL) 45 H Creatinine (0.5 - 1.0 mg/dL) 2.4 H Estimated GFR (>60 ml/min) 21 L Glucose (65 - 99 mg/dL) 253 H Calcium (8.4 - 10.2 mg/dL) 8.0 L Phosphorus (2.5 - 4.5 mg/dL) 5.5 H Magnesium (1.6 - 2.3 mg/dL) 2.1 Total Bilirubin (0.2 - 1.3 mg/dL) 0.2 AST (14 - 36 U/L) 23 ALT (9 - 52 U/L) 33 Albumin (3.5 - 5.0 g/dL) 2.7 L Hematology CBC w Diff NO MAN DIFF REQ MAN DIFF ORDERED WBC (4.8 - 10.8 /CUMM) 10.3 12.0 H RBC (4.20 - 5.40 /CUMM) 2.42 L 2.46 L Hgb (12.0 - 16.0 G/DL) 6.7 *L 6.9 *L Hct (37 - 47 %) 21.5 L 21.9 L MCV (81.0 - 99.0 FL) 88.8 88.9 MCH (27.0 - 31.0 PG) 27.5 28.0 MCHC (33.0 - 37.0 G/DL) 31.0 L 31.5 L RDW (11.5 - 14.5 %) 17.0 H 16.8 H Plt Count (130 - 400 /CUMM) 358 336 MPV (7.4 - 10.4 FL) 8.1 8.4 Gran % (42.2 - 75.2 %) 91.1 H 91.2 H Lymphocytes % (20.5 - 51.1 %) 5.3 L 3.6 L Monocytes % (1.7 - 9.3 %) 3.6 5.1 Eosinophils % (0 - 5 %) 0 0.1 Basophils % (0.0 - 2.0 %) 0 0 Absolute Granulocytes (1.4 - 6.5 /CUMM) 9.4 H 10.9 H Segmented Neutrophils (42.2 - 75.2 %) 89 H Band Neutrophils (0.0 - 5.0 %) 9 H Absolute Lymphocytes (1.2 - 3.4 /CUMM) 0.5 L 0.4 L Lymphocytes (20.5 - 51.1 %) 1 L Monocytes (1.7 - 9.3 %) 1 L Absolute Monocytes (0.10 - 0.60 /CUMM) 0.4 0.6 Absolute Eosinophils (0.0 - 0.7 /CUMM) 0 0 Absolute Basophils (0.0 - 0.2 /CUMM) 0 0 Platelet Estimate (ADEQUATE) ADEQUATE Polychromasia 1+ Poikilocytosis FEW Anisocytosis 1+ Ovalocytes FEW Other Body Source Fld Total RBCs Counted (%) 100 08/10 08/10 08/10 1748 1715 1458 Chemistry Sodium (137 - 145 mmol/L) 130 L Potassium (3.5 - 5.1 mmol/L) 4.8 Chloride (98 - 107 mmol/L) 100 Carbon Dioxide (22 - 30 mmol/L) 24 Anion Gap (5 - 16) 6 BUN (7 - 17 mg/dL) 40 H Creatinine (0.5 - 1.0 mg/dL) 2.4 H Estimated GFR (>60 ml/min) 21 L BUN/Creatinine Ratio (7 - 25 %) 16.7 Glucose (65 - 99 mg/dL) 182 H Lactic Acid (0.7 - 2.1 mmol/L) Cancelled 0.9 Calcium (8.4 - 10.2 mg/dL) 7.8 L Total Bilirubin (0.2 - 1.3 mg/dL) 0.1 L AST (14 - 36 U/L) 25 ALT (9 - 52 U/L) 27 Alkaline Phosphatase (<127 U/L) 43 Troponin I (< 0.11 ng/ml) 0.04 Yim-C-Pfnqyvaocwu Pept (<125 pg/mL) 5750 H Total Protein (6.3 - 8.2 g/dL) 5.3 L Albumin (3.5 - 5.0 g/dL) 2.7 L Globulin (1.9 - 4.2 gm/dL) 2.6 Albumin/Globulin Ratio (1.1 - 2.2 %) 1.0 L Coagulation PT (9.4 - 12.5 SEC) 14.1 H INR (0.90 - 1.19) 1.35 H APTT (25 - 37 SEC) 31 Hematology CBC w Diff NO MAN DIFF REQ WBC (4.8 - 10.8 /CUMM) 8.7 RBC (4.20 - 5.40 /CUMM) 2.27 L Hgb (12.0 - 16.0 G/DL) 6.2 *L Hct (37 - 47 %) 20.0 L MCV (81.0 - 99.0 FL) 88.1 MCH (27.0 - 31.0 PG) 27.5 MCHC (33.0 - 37.0 G/DL) 31.2 L RDW (11.5 - 14.5 %) 16.8 H Plt Count (130 - 400 /CUMM) 366 MPV (7.4 - 10.4 FL) 7.6 Gran % (42.2 - 75.2 %) 80.6 H Lymphocytes % (20.5 - 51.1 %) 7.6 L Monocytes % (1.7 - 9.3 %) 11.6 H Eosinophils % (0 - 5 %) 0.1 Basophils % (0.0 - 2.0 %) 0.1 Absolute Granulocytes (1.4 - 6.5 /CUMM) 7.0 H Absolute Lymphocytes (1.2 - 3.4 /CUMM) 0.7 L Absolute Monocytes (0.10 - 0.60 /CUMM) 1.0 H Absolute Eosinophils (0.0 - 0.7 /CUMM) 0 Absolute Basophils (0.0 - 0.2 /CUMM) 0 08/10 1423 Chemistry Rdk-U-Dfduntinyas Pept Cancelled Microbiology Date/Time Procedure - Status Source Growth 08/11 0215 Blood Culture - RECD BLOOD 08/11 0200 Blood Culture - RECD BLOOD 08/11 0135 Respiratory Culture - COLB LOWER RESP 08/11 0135 Gram Stain - COLB LOWER RESP 08/10 2345 Urine Culture - RECD URINE ROUT 08/10 2114 Surveillance Culture - COMP UPPER RESP 08/10 2114 Surveillance Culture - COMP GI 08/10 1551 Influenza Virus A & B Rapid Smear - COMP NASOPHARYN Vital Signs & I&O Last 24 Hrs of Vitals and I&O: Vital Signs Date Time Temp Pulse Resp B/P B/P Pulse O2 O2 Flow FiO2 Mean Ox Delivery Rate 08/12 0800 96.9 62 16 140/68 99 Nasal 1.0L Cannula 08/12 0800 95 Nasal 1.0L Cannula 08/12 0400 97 Nasal 1.0L Cannula 08/12 0120 56 97 08/12 0000 95 Nasal 1.0L Cannula 08/12 0000 98.7 60 12 140/60 95 Nasal 1.0L Cannula 08/11 2223 70 157/72 08/11 2222 71 157/72 08/11 2000 95 Nasal 3.0L Cannula 08/11 1859 95 Nasal 3.0L Cannula 08/11 1740 72 146/68 08/11 1600 95 Nasal 3.0L Cannula 08/11 1600 98.1 73 20 120/70 96 Nasal 3.0L Cannula 08/11 1355 67 99 08/11 1200 97 BIPAP 35% 08/11 1117 65 97 08/11 1031 68 126/84 08/11 1029 68 140/80 Intake & Output 08/12 1600 08/12 0800 08/12 0000 Intake Total 200 1300 Output Total 400 300 Balance -200 1000 Intake, Blood 380 Product Intake, IV 120 Intake, Oral 200 800 Number 0 Bowel Movements Output, Urine 400 300 Laboratory Tests 08/12 08/11 0600 2305 Chemistry Sodium (137 - 145 mmol/L) 130 L 130 L Potassium (3.5 - 5.1 mmol/L) 5.3 H 5.0 Chloride (98 - 107 mmol/L) 100 98 Carbon Dioxide (22 - 30 mmol/L) 22 20 L Anion Gap (5 - 16) 8 12 BUN (7 - 17 mg/dL) 59 H 56 H Creatinine (0.5 - 1.0 mg/dL) 2.3 H 2.6 H Estimated GFR (>60 ml/min) 22 L 19 L Glucose (65 - 99 mg/dL) 157 H 263 H Calcium (8.4 - 10.2 mg/dL) 8.0 L 8.3 L Phosphorus (2.5 - 4.5 mg/dL) 6.1 H 6.5 H Magnesium (1.6 - 2.3 mg/dL) 2.3 2.2 Total Bilirubin (0.2 - 1.3 mg/dL) 0.3 0.3 AST (14 - 36 U/L) 27 17 ALT (9 - 52 U/L) 29 30 Albumin (3.5 - 5.0 g/dL) 2.6 L 2.8 L Hematology CBC w Diff NO MAN DIFF REQ WBC (4.8 - 10.8 /CUMM) 8.8 9.0 RBC (4.20 - 5.40 /CUMM) 2.86 L 2.81 L Hgb (12.0 - 16.0 G/DL) 7.7 L 7.6 L Hct (37 - 47 %) 24.6 L 24.2 L MCV (81.0 - 99.0 FL) 86.1 86.4 MCH (27.0 - 31.0 PG) 27.0 27.0 MCHC (33.0 - 37.0 G/DL) 31.4 L 31.3 L RDW (11.5 - 14.5 %) 19.0 H 19.0 H Plt Count (130 - 400 /CUMM) 363 364 MPV (7.4 - 10.4 FL) 8.3 8.2 Gran % (42.2 - 75.2 %) 85.8 H 84.6 H Lymphocytes % (20.5 - 51.1 %) 5.4 L 4.4 L Monocytes % (1.7 - 9.3 %) 8.8 11.0 H Eosinophils % (0 - 5 %) 0 0 Basophils % (0.0 - 2.0 %) 0 0 Absolute Granulocytes (1.4 - 6.5 /CUMM) 7.6 H 7.6 H Absolute Lymphocytes (1.2 - 3.4 /CUMM) 0.5 L 0.4 L Absolute Monocytes (0.10 - 0.60 /CUMM) 0.8 H 1.0 H Absolute Eosinophils (0.0 - 0.7 /CUMM) 0 0 Absolute Basophils (0.0 - 0.2 /CUMM) 0 0 08/11 08/11 1610 0800 Chemistry Sodium (137 - 145 mmol/L) 130 L Potassium (3.5 - 5.1 mmol/L) 5.6 H Chloride (98 - 107 mmol/L) 98 Carbon Dioxide (22 - 30 mmol/L) 21 L Anion Gap (5 - 16) 11 BUN (7 - 17 mg/dL) 57 H Creatinine (0.5 - 1.0 mg/dL) 2.4 H Estimated GFR (>60 ml/min) 21 L Glucose (65 - 99 mg/dL) 398 H Calcium (8.4 - 10.2 mg/dL) 7.8 L Phosphorus (2.5 - 4.5 mg/dL) 6.9 H Magnesium (1.6 - 2.3 mg/dL) 2.2 Total Bilirubin (0.2 - 1.3 mg/dL) 0.2 AST (14 - 36 U/L) 26 ALT (9 - 52 U/L) 33 Albumin (3.5 - 5.0 g/dL) 2.7 L Hematology CBC w Diff NO MAN DIFF REQ MAN DIFF ORDERED WBC (4.8 - 10.8 /CUMM) 7.7 9.4 RBC (4.20 - 5.40 /CUMM) 2.38 L 2.82 L Hgb (12.0 - 16.0 G/DL) 6.6 *L 7.8 L Hct (37 - 47 %) 21.1 L 24.9 L MCV (81.0 - 99.0 FL) 89.0 88.2 MCH (27.0 - 31.0 PG) 28.0 27.6 MCHC (33.0 - 37.0 G/DL) 31.4 L 31.3 L RDW (11.5 - 14.5 %) 17.0 H 16.5 H Plt Count (130 - 400 /CUMM) 336 388 MPV (7.4 - 10.4 FL) 8.5 8.4 Gran % (42.2 - 75.2 %) 90.1 H 90.8 H Lymphocytes % (20.5 - 51.1 %) 6.3 L 6.3 L Monocytes % (1.7 - 9.3 %) 3.6 2.8 Eosinophils % (0 - 5 %) 0 0.1 Basophils % (0.0 - 2.0 %) 0 0 Absolute Granulocytes (1.4 - 6.5 /CUMM) 7.0 H 8.6 H Absolute Lymphocytes (1.2 - 3.4 /CUMM) 0.5 L 0.6 L Absolute Monocytes (0.10 - 0.60 /CUMM) 0.3 0.3 Absolute Eosinophils (0.0 - 0.7 /CUMM) 0 0 Absolute Basophils (0.0 - 0.2 /CUMM) 0 0 Platelet Estimate (ADEQUATE) VERIFIED BY SMEAR Polychromasia 1+ Basophilic Stippling 1+ Anisocytosis 1+ 08/11 08/11 0415 0010 Chemistry Sodium (137 - 145 mmol/L) 133 L Potassium (3.5 - 5.1 mmol/L) 5.5 H Chloride (98 - 107 mmol/L) 101 Carbon Dioxide (22 - 30 mmol/L) 23 Anion Gap (5 - 16) 9 BUN (7 - 17 mg/dL) 45 H Creatinine (0.5 - 1.0 mg/dL) 2.4 H Estimated GFR (>60 ml/min) 21 L Glucose (65 - 99 mg/dL) 253 H Calcium (8.4 - 10.2 mg/dL) 8.0 L Phosphorus (2.5 - 4.5 mg/dL) 5.5 H Magnesium (1.6 - 2.3 mg/dL) 2.1 Total Bilirubin (0.2 - 1.3 mg/dL) 0.2 AST (14 - 36 U/L) 23 ALT (9 - 52 U/L) 33 Albumin (3.5 - 5.0 g/dL) 2.7 L Hematology CBC w Diff NO MAN DIFF REQ MAN DIFF ORDERED WBC (4.8 - 10.8 /CUMM) 10.3 12.0 H RBC (4.20 - 5.40 /CUMM) 2.42 L 2.46 L Hgb (12.0 - 16.0 G/DL) 6.7 *L 6.9 *L Hct (37 - 47 %) 21.5 L 21.9 L MCV (81.0 - 99.0 FL) 88.8 88.9 MCH (27.0 - 31.0 PG) 27.5 28.0 MCHC (33.0 - 37.0 G/DL) 31.0 L 31.5 L RDW (11.5 - 14.5 %) 17.0 H 16.8 H Plt Count (130 - 400 /CUMM) 358 336 MPV (7.4 - 10.4 FL) 8.1 8.4 Gran % (42.2 - 75.2 %) 91.1 H 91.2 H Lymphocytes % (20.5 - 51.1 %) 5.3 L 3.6 L Monocytes % (1.7 - 9.3 %) 3.6 5.1 Eosinophils % (0 - 5 %) 0 0.1 Basophils % (0.0 - 2.0 %) 0 0 Absolute Granulocytes (1.4 - 6.5 /CUMM) 9.4 H 10.9 H Segmented Neutrophils (42.2 - 75.2 %) 89 H Band Neutrophils (0.0 - 5.0 %) 9 H Absolute Lymphocytes (1.2 - 3.4 /CUMM) 0.5 L 0.4 L Lymphocytes (20.5 - 51.1 %) 1 L Monocytes (1.7 - 9.3 %) 1 L Absolute Monocytes (0.10 - 0.60 /CUMM) 0.4 0.6 Absolute Eosinophils (0.0 - 0.7 /CUMM) 0 0 Absolute Basophils (0.0 - 0.2 /CUMM) 0 0 Platelet Estimate (ADEQUATE) ADEQUATE Polychromasia 1+ Poikilocytosis FEW Anisocytosis 1+ Ovalocytes FEW Other Body Source Fld Total RBCs Counted (%) 100 08/10 08/10 08/10 1748 1715 1458 Chemistry Sodium (137 - 145 mmol/L) 130 L Potassium (3.5 - 5.1 mmol/L) 4.8 Chloride (98 - 107 mmol/L) 100 Carbon Dioxide (22 - 30 mmol/L) 24 Anion Gap (5 - 16) 6 BUN (7 - 17 mg/dL) 40 H Creatinine (0.5 - 1.0 mg/dL) 2.4 H Estimated GFR (>60 ml/min) 21 L BUN/Creatinine Ratio (7 - 25 %) 16.7 Glucose (65 - 99 mg/dL) 182 H Lactic Acid (0.7 - 2.1 mmol/L) Cancelled 0.9 Calcium (8.4 - 10.2 mg/dL) 7.8 L Total Bilirubin (0.2 - 1.3 mg/dL) 0.1 L AST (14 - 36 U/L) 25 ALT (9 - 52 U/L) 27 Alkaline Phosphatase (<127 U/L) 43 Troponin I (< 0.11 ng/ml) 0.04 Oik-K-Ijbbocegzen Pept (<125 pg/mL) 5750 H Total Protein (6.3 - 8.2 g/dL) 5.3 L Albumin (3.5 - 5.0 g/dL) 2.7 L Globulin (1.9 - 4.2 gm/dL) 2.6 Albumin/Globulin Ratio (1.1 - 2.2 %) 1.0 L Coagulation PT (9.4 - 12.5 SEC) 14.1 H INR (0.90 - 1.19) 1.35 H APTT (25 - 37 SEC) 31 Hematology CBC w Diff NO MAN DIFF REQ WBC (4.8 - 10.8 /CUMM) 8.7 RBC (4.20 - 5.40 /CUMM) 2.27 L Hgb (12.0 - 16.0 G/DL) 6.2 *L Hct (37 - 47 %) 20.0 L MCV (81.0 - 99.0 FL) 88.1 MCH (27.0 - 31.0 PG) 27.5 MCHC (33.0 - 37.0 G/DL) 31.2 L RDW (11.5 - 14.5 %) 16.8 H Plt Count (130 - 400 /CUMM) 366 MPV (7.4 - 10.4 FL) 7.6 Gran % (42.2 - 75.2 %) 80.6 H Lymphocytes % (20.5 - 51.1 %) 7.6 L Monocytes % (1.7 - 9.3 %) 11.6 H Eosinophils % (0 - 5 %) 0.1 Basophils % (0.0 - 2.0 %) 0.1 Absolute Granulocytes (1.4 - 6.5 /CUMM) 7.0 H Absolute Lymphocytes (1.2 - 3.4 /CUMM) 0.7 L Absolute Monocytes (0.10 - 0.60 /CUMM) 1.0 H Absolute Eosinophils (0.0 - 0.7 /CUMM) 0 Absolute Basophils (0.0 - 0.2 /CUMM) 0 08/10 1423 Chemistry Hzi-G-Paoezytszyp Pept Cancelled Microbiology Date/Time Procedure - Status Source Growth 08/11 0215 Blood Culture - RECD BLOOD 08/11 0200 Blood Culture - RECD BLOOD 08/11 0135 Respiratory Culture - COLB LOWER RESP 08/11 0135 Gram Stain - COLB LOWER RESP 08/10 2345 Urine Culture - RECD URINE ROUT 08/10 2115 Surveillance Culture - COMP UPPER RESP 08/10 2114 Surveillance Culture - COMP GI 08/10 1551 Influenza Virus A & B Rapid Smear - COMP NASOPHARYN Impression/Plan Impression/Plan Impression/Plan: General Appearance: alert, awake, on BIPAP Neck: normal inspection Respiratory: normal breath sounds, chest non-tender, with sig wheezing Cardiovascular: S1 S2 Gastrointestinal: normal bowel sounds, soft, non-tender Extremities: no edema This is a lady with chronic anemia with upper GI bleed, abnormal video capsule endoscopy, previous vascular ectasia was admitted to the hospital with significant anemia. She does have significant COPD, dyslipidemia, medication noncompliance, hypertension, previous heart failure, diabetes which is uncontrolled, osteoporosis and chronic anemia. 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 Subsequently she did have a small bowel enteroscopy with control of bleeding and biopsy. 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 The bleeding seems to have stopped. Patient was also noted to have probably a transfusion reaction versus congestive heart failure now she is in acute on chronic respiratory insufficiency requiring BiPAP. Patient has received intravenous steroids and Benadryl and Lasix as well. She seems to be improving now. Her issues include * Acute blood loss anemia due to a jejunal bleed status post endoscopy with good results * Acute on chronic respiratory failure, improving * Probable transfusion reaction versus acute pulmonary edema from blood transfusion * History of mild to moderate COPD with mild exacerbation * Hypertension at times uncontrolled * Previous diastolic heart dysfunction now with probable systolic heart failure * Chronic kidney disease * Diabetes which seems to be uncontrolled * Recent URI which shortness of breath RECOMMENDATION Watch her in the ICU Follow hemoglobin and hematocrit and creatinine Rpt iv lasix one dose today Continue DuoNeb Continue proton pump inhibitor Diet per GI keep nothing by mouth for now Follow fingerstick glucose If she becomes somnolent then we would do an ABG Continue her blood pressure medications by mouth if okay with GI
[2017-08-12 16:00] VITALS: BP 150/70
--- NOTE | 2017-08-12 17:03 | Cons- Nephrology ---
General Information and HPI Consulting Request Date of Consult: 08/12/17 Requested By: Nathan Hercules MD Reason for Consult: ADDY Source of Information: patient, old records Exam Limitations: no limitations History of Present Illness: The patient is a 61-year-old woman with a past medical history most significant for stage IV chronic kidney disease with baseline creatinine approximately 2proteinuric-3 secondary to diabetic nephropathy, mild pulmonary hypertension, COPD, chronic anemia which looks like is secondary to GI bleeding who initially presented to the hospital on 08/10 with shortness of breath. The patient has been in her usual state of health prior to a couple weeks ago when she says that her outpatient diuretics were increased in the setting of lower extremity edema. Over the last several days, the patient feels like she has had a cold. She has had some upper respiratory symptoms. She ultimately presented to [facility] for the shortness of breath but ultimately decided to leave AGAINST MEDICAL ADVICE and to come to [facility] where she normally gets her care. At [place], initial vital signs were stable. However, on labs she was found to have a hemoglobin of 6.2. Her outpatient laundry operator wash room who just completed a capsule study on her notified the hospital that she was actively bleeding from her jejunum. 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 She ultimately received 2 units of blood to which her hemoglobin is now 7.7. Course was complicated by shortness of breath for which she has received 2 doses of intravenous Lasix. Nephrology is consulted for acute kidney injury. Creatinine was 2.4 and at that and is currently 2.7. No significant hypotension with the lowest blood pressure 120/70. Medications only notable for multiple doses of Lasix given in the setting of shortness of breath and suspected pulmonary edema on chest x-ray. UA and had been with >300 mg/dL protein, 1-3 RBC, 1-3 WBC. She had a Hilton catheter which is since been removed. No renal imaging. Did note that she had a temperature of 100.5 with a white count peaked at 12.0 but is since done trended. My current including flu swabs of the negative. Patient denies NSAID use at home. Not on RAAS inhibition Allergies/Medications Allergies: Coded Allergies: No Known Allergies (09/01/15) Home Med List: Albuterol Sulfate (Proair Hfa) 90 MCG HFA.AER.AD 2 PUF INH Q4 BREATHING PROBLEMS Albuterol Sulfate 2.5 MG/3 ML (0.083 %) VIAL.NEB 3 ML INH Q4-6 PRN PRN SHORTNESS OF BREATH . Amlodipine Besylate (Norvasc) 10 MG TABLET 10 MG PO DAILY blood pressure .. Aspirin (Ecotrin*) 81 MG TABLET.DR 1 TAB PO DAILY HEART HEALTH Carvedilol 25 MG TABLET 25 MG PO BID blood pressure .. Diphenoxylate HCl/Atropine (Lomotil 2.5-0.025 MG Tablet) 2.5 MG-0.025 MG TABLET 2 TAB PO DAILY DIARRHEA (Reported) Epoetin Elia (Procrit) 20,000 UNIT/ML VIAL 15,000 U SC QSUN anemia .. Fenofibrate (Tricor) 48 MG TABLET 1 TAB PO DAILY CHOLESTEROL Ferrous Sulfate 325 MG (65 MG IRON) TABLET. 325 MG PO DAILY supplement take 1 tab twice a day. Fluticasone/Salmeterol (Advair 250-50 Diskus) 250 MCG-50 MCG/DOSE BLST.W.DEV 1 PUF INH BID BREATHING PROBLEMS Furosemide (Lasix) 40 MG TABLET 1.5 TAB PO DAILY WATER RETENTION Hydralazine HCl 100 MG TABLET 1 TAB PO TID BLOOD PRESSURE take 1 tab three times a day.. Hydroxyzine Hydrochloride (Atarax) 25 MG TABLET 1 TAB PO BID UNKNOWN ( Reported) Insulin Aspart (Novolog) 100 UNIT/ML VIAL 0 UNITS SC TIDAC diabetes sugar unit <150 0 151-200 4 201-250 6 251-300 8 301-350 10 351-400 12 >400 14, call Insulin Detemir (Levemir) 100 UNIT/ML VIAL 14 UNITS SC AT BEDTIME diabetes .. Nepafenac (Ilevro) 0.3 % DROPS.SUSP EYE (Reported) Nicotine (Nicotine Patch) 14 MG/24 HOUR PATCH.TD24 1 PAT TD DAILY smoking cessation Oxycodone HCl/Acetaminophen (Percocet 7.5-325 MG Tablet) 7.5 MG-325 MG TABLET 1 TAB PO 4 TIMES/DAY PRN PAIN (Reported) Pantoprazole Sodium (Protonix) 40 MG TABLET.DR 1 TAB PO DAILY ACID REFLUX Pravastatin Sodium (Pravachol) 40 MG TABLET 1 TAB PO DAILY CHOLESTEROL Trazodone HCl 150 MG TABLET 1 TAB PO QPM SLEEP (Reported) Current Medications: Current Medications Sig/Jannet Start time Last Medication Dose Route Stop Time Status Admin Albuterol Sulfate 3 ML Q4P PRN 08/10 2345 AC INH Albuterol Sulfate 3 ML TID 08/10 2200 AC 08/12 INH 1329 Amlodipine Besylate 10 MG DAILY 08/10 1746 AC 08/12 PO 0932 Calcium Gluconate 1 GM ONCE ONE 08/11 191 DC 08/11 Sodium Chloride 100 ML IV 08/11 Carvedilol 25 MG BID 08/10 2200 AC 08/12 PO 0932 Dextrose 25 GM ONCE ONE 08/11 191 DC 08/11 IV 08/11 191 203 Fenofibrate 48 MG DAILY 08/12 1000 AC 08/12 PO 0932 Guaifenesin 10 ML Q6PRN PRN 08/10 2115 AC 08/10 PO 2332 Hydralazine HCl 100 MG TID 08/11 1627 AC 08/12 PO 1646 Hydroxyzine HCl 25 MG BID 08/11 220 AC 08/12 PO 0932 Insulin Aspart 0 TIDAC 08/12 1200 AC 08/12 SC 1647 Insulin Detemir 7 UNITS AT BEDTIME 08/10 2200 AC 08/11 SC 1813 Insulin Human NPH 10 UNITS ONCE ONE 08/11 1914 CAN SC 08/11 191 Insulin Human Regular 6 UNITS .STK-MED ONE 08/12 0610 DC IV 08/12 0611 Insulin Human Regular 10 UNITS .STK-MED ONE 08/12 0129 DC IV 08/12 0130 Insulin Human Regular 10 UNITS ONCE ONE 08/11 1930 DC 08/11 IV 08/11 193 2040 Insulin Human Regular 0 Q6 08/11 0715 DC 08/12 SC 0611 Nicotine 14 MG DAILY 08/11 1621 AC 08/12 TOP 0932 Omeprazole 40 MG DAILY AC 08/12 0700 AC 08/12 PO 0611 Oxycodone/ 1 TAB Q4P PRN 08/11 1645 AC 08/12 Acetaminophen PO 1647 Pravastatin Sodium 40 MG 1700 08/11 1700 AC 08/12 PO 1646 Racepinephrine 0.5 ML Q4P PRN 08/10 2345 AC 08/10 INH 2343 Sodium Polystyrene 60 ML ONCE ONE 08/12 0645 DC 08/12 Sulfonate PO 08/12 0646 0744 Trazodone HCl 150 MG QPM 08/11 2200 AC 08/11 PO 2221 Review of Systems Review of Systems: Remaining 14 point ROS neg except as per HPI. Past History Travel History Traveled to [place] past 21 day No Medical History Blood Transfusion Hx: Yes Type of Reaction: Shortness of Breath Neurological: NONE EENT: cataracts Cardiovascular: CHF, hypertension, hyperlipidemia Respiratory: COPD, pneumonia Gastrointestinal: GERD, iron deficiency anemia chronic, intermittent diarrhea Hepatic: cholecystitis, hepatitis C Renal: chronic kidney disease Musculoskeletal: falls, osteoporosis Psychiatric: NONE Endocrine: diabetes Blood Disorders: anemia Cancer(s): NONE JUNIOR PARALEGAL/Reproductive: 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 Home Services at Home: [facility] Smoking Status: Current Everyday Smoker Exam & Diagnostic Data Vital Signs and I&O Vital Signs Date Time Temp Pulse Resp B/P B/P Pulse O2 O2 Flow FiO2 Mean Ox Delivery Rate 08/12 1646 79 140/62 08/12 1342 96 Nasal 1.0L Cannula 08/12 1200 96 Nasal 1.0L Cannula 08/12 0932 70 154/72 08/12 0932 70 154/72 08/12 0932 70 154/72 08/12 0800 96.9 62 16 140/68 99 Nasal 1.0L Cannula 08/12 0800 95 Nasal 1.0L Cannula 08/12 0400 97 Nasal 1.0L Cannula 08/12 0120 56 97 08/12 0000 95 Nasal 1.0L Cannula 08/12 0000 98.7 60 12 140/60 95 Nasal 1.0L Cannula 08/11 2223 70 157/72 08/11 2222 71 157/72 08/11 2000 95 Nasal 3.0L Cannula 08/11 1859 95 Nasal 3.0L Cannula 08/11 1740 72 146/68 Intake & Output 08/12 1600 08/12 0400 08/11 1600 08/11 0400 08/10 1600 08/10 0400 Intake Total 800 1300 770 440 Output Total 580 300 740 600 Balance 220 1000 30 -160 Intake, Blood 380 300 Product Intake, IV 0 120 470 80 Intake, Oral 800 800 300 60 Number 3 0 2 2 Bowel Movements Output, Urine 580 300 740 600 Patient 180 lb 174 lb Weight Weight Bed scale Reported by Patient Measurement Method Physical Exam: Gen - ok appearing Head - NCAT Eyes - anicteric sclera, EOMI Neck - supple, JVP visible but not clearly elevated CV - RRR, no m/r/g Chest - coarse b/l breath sounds with what sound like rhonchi and wheezes - no audible crackles Abd - soft, NTND Upper ext - warm, no edema Lower ext - warm, no edema Skin - no rash or jaundice Neuro - AOX3, grossly nonfocal Results Pertinent Lab Results: Laboratory Tests 08/12 08/12 08/12 1334 1201 0600 Chemistry Sodium (137 - 145 mmol/L) 134 L 130 L Potassium (3.5 - 5.1 mmol/L) 4.5 5.3 H Chloride (98 - 107 mmol/L) 100 100 Carbon Dioxide (22 - 30 mmol/L) 25 22 Anion Gap (5 - 16) 8 8 BUN (7 - 17 mg/dL) 55 H 59 H Creatinine (0.5 - 1.0 mg/dL) 2.7 H 2.3 H Estimated GFR (>60 ml/min) 18 L 22 L Glucose (65 - 99 mg/dL) 188 H 157 H Calcium (8.4 - 10.2 mg/dL) 8.1 L 8.0 L Phosphorus (2.5 - 4.5 mg/dL) 5.6 H 6.1 H Magnesium (1.6 - 2.3 mg/dL) 2.2 2.3 Total Bilirubin (0.2 - 1.3 mg/dL) 0.2 0.3 AST (14 - 36 U/L) 17 27 ALT (9 - 52 U/L) 34 29 Albumin (3.5 - 5.0 g/dL) 2.6 L 2.6 L Hematology CBC w Diff NO MAN DIFF REQ WBC (4.8 - 10.8 /CUMM) 8.8 RBC (4.20 - 5.40 /CUMM) 2.86 L Hgb (12.0 - 16.0 G/DL) 7.7 L Hct (37 - 47 %) 24.6 L MCV (81.0 - 99.0 FL) 86.1 MCH (27.0 - 31.0 PG) 27.0 MCHC (33.0 - 37.0 G/DL) 31.4 L RDW (11.5 - 14.5 %) 19.0 H Plt Count (130 - 400 /CUMM) 363 MPV (7.4 - 10.4 FL) 8.3 Gran % (42.2 - 75.2 %) 85.8 H Lymphocytes % (20.5 - 51.1 %) 5.4 L Monocytes % (1.7 - 9.3 %) 8.8 Eosinophils % (0 - 5 %) 0 Basophils % (0.0 - 2.0 %) 0 Absolute Granulocytes (1.4 - 6.5 /CUMM) 7.6 H Absolute Lymphocytes (1.2 - 3.4 /CUMM) 0.5 L Absolute Monocytes (0.10 - 0.60 /CUMM) 0.8 H Absolute Eosinophils (0.0 - 0.7 /CUMM) 0 Absolute Basophils (0.0 - 0.2 /CUMM) 0 Urines Urine Color Cancelled Urine Clarity Cancelled Urine pH Cancelled Ur Specific [place] Cancelled Urine Protein Cancelled Urine Ketones Cancelled Urine Nitrite Cancelled Urine Bilirubin Cancelled Urine Urobilinogen Cancelled Ur Leukocyte Esterase Cancelled Ur Microscopic Cancelled Urine Hemoglobin Cancelled Urine Glucose Cancelled 08/11 08/11 2305 1610 Chemistry Sodium (137 - 145 mmol/L) 130 L 130 L Potassium (3.5 - 5.1 mmol/L) 5.0 5.6 H Chloride (98 - 107 mmol/L) 98 98 Carbon Dioxide (22 - 30 mmol/L) 20 L 21 L Anion Gap (5 - 16) 12 11 BUN (7 - 17 mg/dL) 56 H 57 H Creatinine (0.5 - 1.0 mg/dL) 2.6 H 2.4 H Estimated GFR (>60 ml/min) 19 L 21 L Glucose (65 - 99 mg/dL) 263 H 398 H Calcium (8.4 - 10.2 mg/dL) 8.3 L 7.8 L Phosphorus (2.5 - 4.5 mg/dL) 6.5 H 6.9 H Magnesium (1.6 - 2.3 mg/dL) 2.2 2.2 Total Bilirubin (0.2 - 1.3 mg/dL) 0.3 0.2 AST (14 - 36 U/L) 17 26 ALT (9 - 52 U/L) 30 33 Albumin (3.5 - 5.0 g/dL) 2.8 L 2.7 L Hematology CBC w Diff NO MAN DIFF REQ WBC (4.8 - 10.8 /CUMM) 9.0 7.7 RBC (4.20 - 5.40 /CUMM) 2.81 L 2.38 L Hgb (12.0 - 16.0 G/DL) 7.6 L 6.6 *L Hct (37 - 47 %) 24.2 L 21.1 L MCV (81.0 - 99.0 FL) 86.4 89.0 MCH (27.0 - 31.0 PG) 27.0 28.0 MCHC (33.0 - 37.0 G/DL) 31.3 L 31.4 L RDW (11.5 - 14.5 %) 19.0 H 17.0 H Plt Count (130 - 400 /CUMM) 364 336 MPV (7.4 - 10.4 FL) 8.2 8.5 Gran % (42.2 - 75.2 %) 84.6 H 90.1 H Lymphocytes % (20.5 - 51.1 %) 4.4 L 6.3 L Monocytes % (1.7 - 9.3 %) 11.0 H 3.6 Eosinophils % (0 - 5 %) 0 0 Basophils % (0.0 - 2.0 %) 0 0 Absolute Granulocytes (1.4 - 6.5 /CUMM) 7.6 H 7.0 H Absolute Lymphocytes (1.2 - 3.4 /CUMM) 0.4 L 0.5 L Absolute Monocytes (0.10 - 0.60 /CUMM) 1.0 H 0.3 Absolute Eosinophils (0.0 - 0.7 /CUMM) 0 0 Absolute Basophils (0.0 - 0.2 /CUMM) 0 0 08/11 08/11 0800 0415 Chemistry Sodium (137 - 145 mmol/L) 133 L Potassium (3.5 - 5.1 mmol/L) 5.5 H Chloride (98 - 107 mmol/L) 101 Carbon Dioxide (22 - 30 mmol/L) 23 Anion Gap (5 - 16) 9 BUN (7 - 17 mg/dL) 45 H Creatinine (0.5 - 1.0 mg/dL) 2.4 H Estimated GFR (>60 ml/min) 21 L Glucose (65 - 99 mg/dL) 253 H Calcium (8.4 - 10.2 mg/dL) 8.0 L Phosphorus (2.5 - 4.5 mg/dL) 5.5 H Magnesium (1.6 - 2.3 mg/dL) 2.1 Total Bilirubin (0.2 - 1.3 mg/dL) 0.2 AST (14 - 36 U/L) 23 ALT (9 - 52 U/L) 33 Albumin (3.5 - 5.0 g/dL) 2.7 L Hematology CBC w Diff MAN DIFF ORDERED NO MAN DIFF REQ WBC (4.8 - 10.8 /CUMM) 9.4 10.3 RBC (4.20 - 5.40 /CUMM) 2.82 L 2.42 L Hgb (12.0 - 16.0 G/DL) 7.8 L 6.7 *L Hct (37 - 47 %) 24.9 L 21.5 L MCV (81.0 - 99.0 FL) 88.2 88.8 MCH (27.0 - 31.0 PG) 27.6 27.5 MCHC (33.0 - 37.0 G/DL) 31.3 L 31.0 L RDW (11.5 - 14.5 %) 16.5 H 17.0 H Plt Count (130 - 400 /CUMM) 388 358 MPV (7.4 - 10.4 FL) 8.4 8.1 Gran % (42.2 - 75.2 %) 90.8 H 91.1 H Lymphocytes % (20.5 - 51.1 %) 6.3 L 5.3 L Monocytes % (1.7 - 9.3 %) 2.8 3.6 Eosinophils % (0 - 5 %) 0.1 0 Basophils % (0.0 - 2.0 %) 0 0 Absolute Granulocytes (1.4 - 6.5 /CUMM) 8.6 H 9.4 H Absolute Lymphocytes (1.2 - 3.4 /CUMM) 0.6 L 0.5 L Absolute Monocytes (0.10 - 0.60 /CUMM) 0.3 0.4 Absolute Eosinophils (0.0 - 0.7 /CUMM) 0 0 Absolute Basophils (0.0 - 0.2 /CUMM) 0 0 Platelet Estimate (ADEQUATE) VERIFIED BY SMEAR Polychromasia 1+ Basophilic Stippling 1+ Anisocytosis 1+ 08/11 08/10 0010 2345 Hematology CBC w Diff MAN DIFF ORDERED WBC (4.8 - 10.8 /CUMM) 12.0 H RBC (4.20 - 5.40 /CUMM) 2.46 L Hgb (12.0 - 16.0 G/DL) 6.9 *L Hct (37 - 47 %) 21.9 L MCV (81.0 - 99.0 FL) 88.9 MCH (27.0 - 31.0 PG) 28.0 MCHC (33.0 - 37.0 G/DL) 31.5 L RDW (11.5 - 14.5 %) 16.8 H Plt Count (130 - 400 /CUMM) 336 MPV (7.4 - 10.4 FL) 8.4 Gran % (42.2 - 75.2 %) 91.2 H Lymphocytes % (20.5 - 51.1 %) 3.6 L Monocytes % (1.7 - 9.3 %) 5.1 Eosinophils % (0 - 5 %) 0.1 Basophils % (0.0 - 2.0 %) 0 Absolute Granulocytes (1.4 - 6.5 /CUMM) 10.9 H Segmented Neutrophils (42.2 - 75.2 %) 89 H Band Neutrophils (0.0 - 5.0 %) 9 H Absolute Lymphocytes (1.2 - 3.4 /CUMM) 0.4 L Lymphocytes (20.5 - 51.1 %) 1 L Monocytes (1.7 - 9.3 %) 1 L Absolute Monocytes (0.10 - 0.60 /CUMM) 0.6 Absolute Eosinophils (0.0 - 0.7 /CUMM) 0 Absolute Basophils (0.0 - 0.2 /CUMM) 0 Platelet Estimate (ADEQUATE) ADEQUATE Polychromasia 1+ Poikilocytosis FEW Anisocytosis 1+ Ovalocytes FEW Other Body Source Fld Total RBCs Counted (%) 100 Urines Urinalysis HEAVY H Urine Color (YEL,AMB,STR) YEL Urine Clarity (CLEAR) HAZY H Urine pH (5.0 - 8.0) 6.0 Ur Specific [place] (1.001 - 1.035) >= 1.030 Urine Protein (NEG,<30 MG/DL) >=300 H Urine Ketones (NEG) NEG Urine Nitrite (NEG) NEG Urine Bilirubin (NEG) NEG Urine Urobilinogen (0.1 - 1.0 EU/dl) 0.2 Ur Leukocyte Esterase (NEG) NEG Ur Microscopic SEDIMENT EXAMINED Urine RBC (0 - 5 /HPF) 1-3 Urine WBC (0 - 2 /HPF) 1-3 H Ur Epithelial Cells (NONE,FEW) RARE Urine Bacteria (NEG/NONE) FEW H Hyaline Casts (0/LPF) RARE H Granular Casts (NONE /LPF) 1-3 H Urine Mucus (FEW,NONE) FEW Urine Hemoglobin (NEG) TRACE-INTACT Urine Glucose (N MG/DL) NEG 08/10 08/10 08/10 1748 1715 1458 Chemistry Sodium (137 - 145 mmol/L) 130 L Potassium (3.5 - 5.1 mmol/L) 4.8 Chloride (98 - 107 mmol/L) 100 Carbon Dioxide (22 - 30 mmol/L) 24 Anion Gap (5 - 16) 6 BUN (7 - 17 mg/dL) 40 H Creatinine (0.5 - 1.0 mg/dL) 2.4 H Estimated GFR (>60 ml/min) 21 L BUN/Creatinine Ratio (7 - 25 %) 16.7 Glucose (65 - 99 mg/dL) 182 H Lactic Acid (0.7 - 2.1 mmol/L) Cancelled 0.9 Calcium (8.4 - 10.2 mg/dL) 7.8 L Total Bilirubin (0.2 - 1.3 mg/dL) 0.1 L AST (14 - 36 U/L) 25 ALT (9 - 52 U/L) 27 Alkaline Phosphatase (<127 U/L) 43 Troponin I (< 0.11 ng/ml) 0.04 [id number] Pept (<125 pg/mL) 5750 H Total Protein (6.3 - 8.2 g/dL) 5.3 L Albumin (3.5 - 5.0 g/dL) 2.7 L Globulin (1.9 - 4.2 gm/dL) 2.6 Albumin/Globulin Ratio (1.1 - 2.2 %) 1.0 L Coagulation PT (9.4 - 12.5 SEC) 14.1 H INR (0.90 - 1.19) 1.35 H APTT (25 - 37 SEC) 31 Hematology CBC w Diff NO MAN DIFF REQ WBC (4.8 - 10.8 /CUMM) 8.7 RBC (4.20 - 5.40 /CUMM) 2.27 L Hgb (12.0 - 16.0 G/DL) 6.2 *L Hct (37 - 47 %) 20.0 L MCV (81.0 - 99.0 FL) 88.1 MCH (27.0 - 31.0 PG) 27.5 MCHC (33.0 - 37.0 G/DL) 31.2 L RDW (11.5 - 14.5 %) 16.8 H Plt Count (130 - 400 /CUMM) 366 MPV (7.4 - 10.4 FL) 7.6 Gran % (42.2 - 75.2 %) 80.6 H Lymphocytes % (20.5 - 51.1 %) 7.6 L Monocytes % (1.7 - 9.3 %) 11.6 H Eosinophils % (0 - 5 %) 0.1 Basophils % (0.0 - 2.0 %) 0.1 Absolute Granulocytes (1.4 - 6.5 /CUMM) 7.0 H Absolute Lymphocytes (1.2 - 3.4 /CUMM) 0.7 L Absolute Monocytes (0.10 - 0.60 /CUMM) 1.0 H Absolute Eosinophils (0.0 - 0.7 /CUMM) 0 Absolute Basophils (0.0 - 0.2 /CUMM) 0 08/10 1423 Chemistry [id number] Pept Cancelled Imaging/Other Studies: EXAM TYPE: RAD - XRY-PORTABLE CHEST XRAY EXAMINATION: XR PORTABLE CHEST CLINICAL INFORMATION: Shortness of breath. COMPARISON: Chest x-ray 08/10/2017, 3:08 PM TECHNIQUE: Portable frontal view of the chest was obtained. 10:07 PM FINDINGS: Mild central pulmonary vascular congestion is persistent compared to prior study. No overt pulmonary edema. No infiltrate or pleural effusion. IMPRESSION: Persistent mild central pulmonary vascular congestion. Assessment/Plan Assessment/Recommendations Assessment: CKD - Stage IV proteinuric kidney disease thought to be 2/2 DM - neg serologic work-up (neg GERBER, normal complements; has reactive Hep C Ab with neg viral load) . Follows with Dr. Natarajan in the office. Issues with hyperkalemia while in- hospital have led to her not tolerating RAAS inhibition. ADDY - Underlying etiology unclear. Suspect renal hypoperfusion in the setting of symptomatic anemia. Cannot rule out that she may have been volume depleted from escalating doses of diuretics as an outpatient. That being said, her chest x-ray here did suggest some degree of pulmonary edema. Urine sediment bland. Urine electrolytes may be helpful to determine if there is any degree of salt avidity. Anemia - Multifactorial. Obviously with a bleed. Had been getting Epogen 20, 000U q2 week at the time of Dr. Natarajan's last visit with her in December. Would check iron stores, ferritin, folate, Vit B12, and retic count - would confirm that she was still getting Epogen but can likely restart no matter what. Hyperphos - In the setting of ADDY. Improving. Recommendations: -Hold off on lasix today -Roberth, UCr -If SCr up tomorrow, would get bladder scan -Ferritin, iron stores, Folate, Vit B12, retic count -Will almost certainly need Epogen as well - prior dosing was 20,000U q2 weeks but ideally would be given after iron stores repleted Please call [phone] with ?'s
--- NOTE | 2017-08-12 17:15 | PN- Gastroenterology ---
Assessment/Plan GI Assessment/Recommendations: ASSESSMENT: 1. 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 Chronic Kidney Disease 3. COPD RECOMMENDATIONS: 1. Monitor for signs of recurrent GI bleeding 2. Decrease frequency of serial H/H. Transfuse as needed. 3. If active recurrent bleeding would consider repeat small bowel enteroscopy / double baloon enteroscopy Subjective Subjective: Patient had loose dark stool. Received one unit blood yesterday. Doing well today. No nausea, vomiting, abdominal pain. Tolerating diet. No bowel movement. Objective Vital Signs and I&Os Vital Signs Date Time Temp Pulse Resp B/P B/P Pulse O2 O2 Flow FiO2 Mean Ox Delivery Rate 08/12 1646 79 140/62 08/12 1342 96 Nasal 1.0L Cannula 08/12 1200 96 Nasal 1.0L Cannula 08/12 0932 70 154/72 08/12 0932 70 154/72 08/12 0932 70 154/72 08/12 0800 96.9 62 16 140/68 99 Nasal 1.0L Cannula 08/12 0800 95 Nasal 1.0L Cannula 08/12 0400 97 Nasal 1.0L Cannula 08/12 0120 56 97 08/12 0000 95 Nasal 1.0L Cannula 08/12 0000 98.7 60 12 140/60 95 Nasal 1.0L Cannula 08/11 2223 70 157/72 08/11 2222 71 157/72 08/11 2000 95 Nasal 3.0L Cannula 08/11 1859 95 Nasal 3.0L Cannula 08/11 1740 72 146/68 Intake & Output 08/12 1600 08/12 0400 08/11 1600 08/11 0400 08/10 1600 08/10 0400 Intake Total 800 1300 770 440 Output Total 580 300 740 600 Balance 220 1000 30 -160 Intake, Blood 380 300 Product Intake, IV 0 120 470 80 Intake, Oral 800 800 300 60 Number 3 0 2 2 Bowel Movements Output, Urine 580 300 740 600 Patient 180 lb 174 lb Weight Weight Bed scale Reported by Patient Measurement Method Physical Exam General Appearance: alert, awake, comfortable Respiratory: normal breath sounds, wheezing Abdomen: normal bowel sounds, soft, non-tender, no organomegaly Neurologic/Psychiatric: oriented x 3, normal mood/affect Current Medications: Current Medications Sig/Jannet Start time Last Medication Dose Route Stop Time Status Admin Albuterol Sulfate 3 ML Q4P PRN 08/10 2345 AC INH Albuterol Sulfate 3 ML TID 08/10 2200 AC 08/12 INH 1329 Amlodipine Besylate 10 MG DAILY 08/10 1746 AC 08/12 PO 0932 Calcium Gluconate 1 GM ONCE ONE 08/11 1915 DC 08/11 Sodium Chloride 100 ML IV 08/11 Carvedilol 25 MG BID 08/10 2200 AC 08/12 PO 0932 Dextrose 25 GM ONCE ONE 08/11 191 DC 08/11 IV 08/11 191 203 Fenofibrate 48 MG DAILY 08/12 1000 AC 08/12 PO 0932 Guaifenesin 10 ML Q6PRN PRN 08/10 2115 AC 08/10 PO 2332 Hydralazine HCl 100 MG TID 08/11 1627 AC 08/12 PO 1646 Hydroxyzine HCl 25 MG BID 08/11 2200 AC 08/12 PO 0932 Insulin Aspart 0 TIDAC 08/12 1200 AC 08/12 SC 1647 Insulin Detemir 7 UNITS AT BEDTIME 08/10 2200 AC 08/11 SC 1813 Insulin Human NPH 10 UNITS ONCE ONE 08/11 191 CAN SC 08/11 191 Insulin Human Regular 6 UNITS .STK-MED ONE 08/12 0610 DC IV 08/12 0611 Insulin Human Regular 10 UNITS .STK-MED ONE 08/12 0129 DC IV 08/12 0130 Insulin Human Regular 10 UNITS ONCE ONE 08/11 1930 DC 08/11 IV 08/11 193 2040 Insulin Human Regular 0 Q6 08/11 0715 DC 08/12 SC 0611 Nicotine 14 MG DAILY 08/11 1621 AC 08/12 TOP 0932 Omeprazole 40 MG DAILY AC 08/12 0700 AC 08/12 PO 0611 Oxycodone/ 1 TAB Q4P PRN 08/11 1645 AC 08/12 Acetaminophen PO 1647 Pravastatin Sodium 40 MG 1700 08/11 1700 AC 08/12 PO 1646 Racepinephrine 0.5 ML Q4P PRN 08/10 2345 AC 08/10 INH 2343 Sodium Polystyrene 60 ML ONCE ONE 08/12 0645 DC 08/12 Sulfonate PO 08/12 0646 0744 Trazodone HCl 150 MG QPM 08/11 2200 AC 08/11 PO 2221 Results Pertinent Lab Results: Laboratory Tests 08/12 08/12 08/12 1334 1201 0600 Chemistry Sodium (137 - 145 mmol/L) 134 L 130 L Potassium (3.5 - 5.1 mmol/L) 4.5 5.3 H Chloride (98 - 107 mmol/L) 100 100 Carbon Dioxide (22 - 30 mmol/L) 25 22 Anion Gap (5 - 16) 8 8 BUN (7 - 17 mg/dL) 55 H 59 H Creatinine (0.5 - 1.0 mg/dL) 2.7 H 2.3 H Estimated GFR (>60 ml/min) 18 L 22 L Glucose (65 - 99 mg/dL) 188 H 157 H Calcium (8.4 - 10.2 mg/dL) 8.1 L 8.0 L Phosphorus (2.5 - 4.5 mg/dL) 5.6 H 6.1 H Magnesium (1.6 - 2.3 mg/dL) 2.2 2.3 Total Bilirubin (0.2 - 1.3 mg/dL) 0.2 0.3 AST (14 - 36 U/L) 17 27 ALT (9 - 52 U/L) 34 29 Albumin (3.5 - 5.0 g/dL) 2.6 L 2.6 L Hematology CBC w Diff NO MAN DIFF REQ WBC (4.8 - 10.8 /CUMM) 8.8 RBC (4.20 - 5.40 /CUMM) 2.86 L Hgb (12.0 - 16.0 G/DL) 7.7 L Hct (37 - 47 %) 24.6 L MCV (81.0 - 99.0 FL) 86.1 MCH (27.0 - 31.0 PG) 27.0 MCHC (33.0 - 37.0 G/DL) 31.4 L RDW (11.5 - 14.5 %) 19.0 H Plt Count (130 - 400 /CUMM) 363 MPV (7.4 - 10.4 FL) 8.3 Gran % (42.2 - 75.2 %) 85.8 H Lymphocytes % (20.5 - 51.1 %) 5.4 L Monocytes % (1.7 - 9.3 %) 8.8 Eosinophils % (0 - 5 %) 0 Basophils % (0.0 - 2.0 %) 0 Absolute Granulocytes (1.4 - 6.5 /CUMM) 7.6 H Absolute Lymphocytes (1.2 - 3.4 /CUMM) 0.5 L Absolute Monocytes (0.10 - 0.60 /CUMM) 0.8 H Absolute Eosinophils (0.0 - 0.7 /CUMM) 0 Absolute Basophils (0.0 - 0.2 /CUMM) 0 Urines Urine Color Cancelled Urine Clarity Cancelled Urine pH Cancelled Ur Specific [place] Cancelled Urine Protein Cancelled Urine Ketones Cancelled Urine Nitrite Cancelled Urine Bilirubin Cancelled Urine Urobilinogen Cancelled Ur Leukocyte Esterase Cancelled Ur Microscopic Cancelled Urine Hemoglobin Cancelled Urine Glucose Cancelled 08/11 08/11 2305 1610 Chemistry Sodium (137 - 145 mmol/L) 130 L 130 L Potassium (3.5 - 5.1 mmol/L) 5.0 5.6 H Chloride (98 - 107 mmol/L) 98 98 Carbon Dioxide (22 - 30 mmol/L) 20 L 21 L Anion Gap (5 - 16) 12 11 BUN (7 - 17 mg/dL) 56 H 57 H Creatinine (0.5 - 1.0 mg/dL) 2.6 H 2.4 H Estimated GFR (>60 ml/min) 19 L 21 L Glucose (65 - 99 mg/dL) 263 H 398 H Calcium (8.4 - 10.2 mg/dL) 8.3 L 7.8 L Phosphorus (2.5 - 4.5 mg/dL) 6.5 H 6.9 H Magnesium (1.6 - 2.3 mg/dL) 2.2 2.2 Total Bilirubin (0.2 - 1.3 mg/dL) 0.3 0.2 AST (14 - 36 U/L) 17 26 ALT (9 - 52 U/L) 30 33 Albumin (3.5 - 5.0 g/dL) 2.8 L 2.7 L Hematology CBC w Diff NO MAN DIFF REQ WBC (4.8 - 10.8 /CUMM) 9.0 7.7 RBC (4.20 - 5.40 /CUMM) 2.81 L 2.38 L Hgb (12.0 - 16.0 G/DL) 7.6 L 6.6 *L Hct (37 - 47 %) 24.2 L 21.1 L MCV (81.0 - 99.0 FL) 86.4 89.0 MCH (27.0 - 31.0 PG) 27.0 28.0 MCHC (33.0 - 37.0 G/DL) 31.3 L 31.4 L RDW (11.5 - 14.5 %) 19.0 H 17.0 H Plt Count (130 - 400 /CUMM) 364 336 MPV (7.4 - 10.4 FL) 8.2 8.5 Gran % (42.2 - 75.2 %) 84.6 H 90.1 H Lymphocytes % (20.5 - 51.1 %) 4.4 L 6.3 L Monocytes % (1.7 - 9.3 %) 11.0 H 3.6 Eosinophils % (0 - 5 %) 0 0 Basophils % (0.0 - 2.0 %) 0 0 Absolute Granulocytes (1.4 - 6.5 /CUMM) 7.6 H 7.0 H Absolute Lymphocytes (1.2 - 3.4 /CUMM) 0.4 L 0.5 L Absolute Monocytes (0.10 - 0.60 /CUMM) 1.0 H 0.3 Absolute Eosinophils (0.0 - 0.7 /CUMM) 0 0 Absolute Basophils (0.0 - 0.2 /CUMM) 0 0 08/11 08/11 0800 0415 Chemistry Sodium (137 - 145 mmol/L) 133 L Potassium (3.5 - 5.1 mmol/L) 5.5 H Chloride (98 - 107 mmol/L) 101 Carbon Dioxide (22 - 30 mmol/L) 23 Anion Gap (5 - 16) 9 BUN (7 - 17 mg/dL) 45 H Creatinine (0.5 - 1.0 mg/dL) 2.4 H Estimated GFR (>60 ml/min) 21 L Glucose (65 - 99 mg/dL) 253 H Calcium (8.4 - 10.2 mg/dL) 8.0 L Phosphorus (2.5 - 4.5 mg/dL) 5.5 H Magnesium (1.6 - 2.3 mg/dL) 2.1 Total Bilirubin (0.2 - 1.3 mg/dL) 0.2 AST (14 - 36 U/L) 23 ALT (9 - 52 U/L) 33 Albumin (3.5 - 5.0 g/dL) 2.7 L Hematology CBC w Diff MAN DIFF ORDERED NO MAN DIFF REQ WBC (4.8 - 10.8 /CUMM) 9.4 10.3 RBC (4.20 - 5.40 /CUMM) 2.82 L 2.42 L Hgb (12.0 - 16.0 G/DL) 7.8 L 6.7 *L Hct (37 - 47 %) 24.9 L 21.5 L MCV (81.0 - 99.0 FL) 88.2 88.8 MCH (27.0 - 31.0 PG) 27.6 27.5 MCHC (33.0 - 37.0 G/DL) 31.3 L 31.0 L RDW (11.5 - 14.5 %) 16.5 H 17.0 H Plt Count (130 - 400 /CUMM) 388 358 MPV (7.4 - 10.4 FL) 8.4 8.1 Gran % (42.2 - 75.2 %) 90.8 H 91.1 H Lymphocytes % (20.5 - 51.1 %) 6.3 L 5.3 L Monocytes % (1.7 - 9.3 %) 2.8 3.6 Eosinophils % (0 - 5 %) 0.1 0 Basophils % (0.0 - 2.0 %) 0 0 Absolute Granulocytes (1.4 - 6.5 /CUMM) 8.6 H 9.4 H Absolute Lymphocytes (1.2 - 3.4 /CUMM) 0.6 L 0.5 L Absolute Monocytes (0.10 - 0.60 /CUMM) 0.3 0.4 Absolute Eosinophils (0.0 - 0.7 /CUMM) 0 0 Absolute Basophils (0.0 - 0.2 /CUMM) 0 0 Platelet Estimate (ADEQUATE) VERIFIED BY SMEAR Polychromasia 1+ Basophilic Stippling 1+ Anisocytosis 1+ 08/11 08/10 0010 2345 Hematology CBC w Diff MAN DIFF ORDERED WBC (4.8 - 10.8 /CUMM) 12.0 H RBC (4.20 - 5.40 /CUMM) 2.46 L Hgb (12.0 - 16.0 G/DL) 6.9 *L Hct (37 - 47 %) 21.9 L MCV (81.0 - 99.0 FL) 88.9 MCH (27.0 - 31.0 PG) 28.0 MCHC (33.0 - 37.0 G/DL) 31.5 L RDW (11.5 - 14.5 %) 16.8 H Plt Count (130 - 400 /CUMM) 336 MPV (7.4 - 10.4 FL) 8.4 Gran % (42.2 - 75.2 %) 91.2 H Lymphocytes % (20.5 - 51.1 %) 3.6 L Monocytes % (1.7 - 9.3 %) 5.1 Eosinophils % (0 - 5 %) 0.1 Basophils % (0.0 - 2.0 %) 0 Absolute Granulocytes (1.4 - 6.5 /CUMM) 10.9 H Segmented Neutrophils (42.2 - 75.2 %) 89 H Band Neutrophils (0.0 - 5.0 %) 9 H Absolute Lymphocytes (1.2 - 3.4 /CUMM) 0.4 L Lymphocytes (20.5 - 51.1 %) 1 L Monocytes (1.7 - 9.3 %) 1 L Absolute Monocytes (0.10 - 0.60 /CUMM) 0.6 Absolute Eosinophils (0.0 - 0.7 /CUMM) 0 Absolute Basophils (0.0 - 0.2 /CUMM) 0 Platelet Estimate (ADEQUATE) ADEQUATE Polychromasia 1+ Poikilocytosis FEW Anisocytosis 1+ Ovalocytes FEW Other Body Source Fld Total RBCs Counted (%) 100 Urines Urinalysis HEAVY H Urine Color (YEL,AMB,STR) YEL Urine Clarity (CLEAR) HAZY H Urine pH (5.0 - 8.0) 6.0 Ur Specific [place] (1.001 - 1.035) >= 1.030 Urine Protein (NEG,<30 MG/DL) >=300 H Urine Ketones (NEG) NEG Urine Nitrite (NEG) NEG Urine Bilirubin (NEG) NEG Urine Urobilinogen (0.1 - 1.0 EU/dl) 0.2 Ur Leukocyte Esterase (NEG) NEG Ur Microscopic SEDIMENT EXAMINED Urine RBC (0 - 5 /HPF) 1-3 Urine WBC (0 - 2 /HPF) 1-3 H Ur Epithelial Cells (NONE,FEW) RARE Urine Bacteria (NEG/NONE) FEW H Hyaline Casts (0/LPF) RARE H Granular Casts (NONE /LPF) 1-3 H Urine Mucus (FEW,NONE) FEW Urine Hemoglobin (NEG) TRACE-INTACT Urine Glucose (N MG/DL) NEG 08/10 08/10 08/10 1748 1715 1458 Chemistry Sodium (137 - 145 mmol/L) 130 L Potassium (3.5 - 5.1 mmol/L) 4.8 Chloride (98 - 107 mmol/L) 100 Carbon Dioxide (22 - 30 mmol/L) 24 Anion Gap (5 - 16) 6 BUN (7 - 17 mg/dL) 40 H Creatinine (0.5 - 1.0 mg/dL) 2.4 H Estimated GFR (>60 ml/min) 21 L BUN/Creatinine Ratio (7 - 25 %) 16.7 Glucose (65 - 99 mg/dL) 182 H Lactic Acid (0.7 - 2.1 mmol/L) Cancelled 0.9 Calcium (8.4 - 10.2 mg/dL) 7.8 L Total Bilirubin (0.2 - 1.3 mg/dL) 0.1 L AST (14 - 36 U/L) 25 ALT (9 - 52 U/L) 27 Alkaline Phosphatase (<127 U/L) 43 Troponin I (< 0.11 ng/ml) 0.04 Poh-H-Prctvxiokrn Pept (<125 pg/mL) 5750 H Total Protein (6.3 - 8.2 g/dL) 5.3 L Albumin (3.5 - 5.0 g/dL) 2.7 L Globulin (1.9 - 4.2 gm/dL) 2.6 Albumin/Globulin Ratio (1.1 - 2.2 %) 1.0 L Coagulation PT (9.4 - 12.5 SEC) 14.1 H INR (0.90 - 1.19) 1.35 H APTT (25 - 37 SEC) 31 Hematology CBC w Diff NO MAN DIFF REQ WBC (4.8 - 10.8 /CUMM) 8.7 RBC (4.20 - 5.40 /CUMM) 2.27 L Hgb (12.0 - 16.0 G/DL) 6.2 *L Hct (37 - 47 %) 20.0 L MCV (81.0 - 99.0 FL) 88.1 MCH (27.0 - 31.0 PG) 27.5 MCHC (33.0 - 37.0 G/DL) 31.2 L RDW (11.5 - 14.5 %) 16.8 H Plt Count (130 - 400 /CUMM) 366 MPV (7.4 - 10.4 FL) 7.6 Gran % (42.2 - 75.2 %) 80.6 H Lymphocytes % (20.5 - 51.1 %) 7.6 L Monocytes % (1.7 - 9.3 %) 11.6 H Eosinophils % (0 - 5 %) 0.1 Basophils % (0.0 - 2.0 %) 0.1 Absolute Granulocytes (1.4 - 6.5 /CUMM) 7.0 H Absolute Lymphocytes (1.2 - 3.4 /CUMM) 0.7 L Absolute Monocytes (0.10 - 0.60 /CUMM) 1.0 H Absolute Eosinophils (0.0 - 0.7 /CUMM) 0 Absolute Basophils (0.0 - 0.2 /CUMM) 0 08/10 1423 Chemistry Nid-F-Qqdonjhujte Pept Cancelled
[2017-08-12 22:54] LABS: ABSOLUTE BASOPHIL COUNT 0 /CUMM (0.0-0.2); ABSOLUTE EOSINOPHIL COUNT 0 /CUMM (0.0-0.7); ABSOLUTE GRANULOCYTE CT 8.1 /CUMM (1.4-6.5); ABSOLUTE LYMPH COUNT 0.8 /CUMM (1.2-3.4); ABSOLUTE MONOCYTE COUNT 0.6 /CUMM (0.10-0.60); BASOPHIL % 0 % (0.0-2.0); EOSINOPHIL % 0.3 % (0-5); GRANULOCYTE % 85.6 % (42.2-75.2); HEMATOCRIT 25.7 % (37-47); MEAN CORPUSCULAR HGB CONC 31.6 G/DL (33.0-37.0); MEAN CORPUSCULAR VOLUME 85.4 FL (81.0-99.0); MEAN PLATELET VOLUME 8.5 FL (7.4-10.4); PLATELET COUNT 440 /CUMM (130-400); RBC DISTRIBUTION WIDTH 18.2 % (11.5-14.5); RED BLOOD CELL CT 3.01 /CUMM (4.20-5.40); WHITE BLOOD CELL COUNT 9.5 /CUMM (4.8-10.8)
[2017-08-13] VITALS: BP 153/81
[2017-08-13 06:32] LABS: ABSOLUTE BASOPHIL COUNT 0 /CUMM (0.0-0.2); ABSOLUTE EOSINOPHIL COUNT 0 /CUMM (0.0-0.7); ABSOLUTE GRANULOCYTE CT 6.9 /CUMM (1.4-6.5); ABSOLUTE LYMPH COUNT 0.8 /CUMM (1.2-3.4); ABSOLUTE MONOCYTE COUNT 0.9 /CUMM (0.10-0.60); BASOPHIL % 0.1 % (0.0-2.0); EOSINOPHIL % 0.5 % (0-5); GRANULOCYTE % 79.6 % (42.2-75.2); HEMATOCRIT 25.1 % (37-47); MEAN CORPUSCULAR HGB 27.4 PG (27.0-31.0); MEAN CORPUSCULAR HGB CONC 31.6 G/DL (33.0-37.0); MEAN CORPUSCULAR VOLUME 86.6 FL (81.0-99.0); PLATELET COUNT 460 /CUMM (130-400); RBC DISTRIBUTION WIDTH 18.9 % (11.5-14.5); RED BLOOD CELL CT 2.89 /CUMM (4.20-5.40); WHITE BLOOD CELL COUNT 8.6 /CUMM (4.8-10.8)
--- NOTE | 2017-08-13 07:30 | PN- Resident CRCU ---
Subjective HPI/CRCU Issues: Upper GI bleeed 24 Hour Events: Patient seen and examined. Resting comfortably. Easily arousable. Offers No complaints. Tmax 98 Heart rate ranging from 80s to 60s Normal sinus rhythm Respiratory rate 20s to 16 Blood pressure ranging from 130s to 140s/60s to 70s On 1 L nasal cannula and satting 99%. Input 1780 output 580, Foleys catheter in place Overnight in episodes of sinus bradycardia up to 50s She is status post 2 units of PRBC since the patient Her diet was advanced yesterday, tolerating well. H/H 7.9/25 stable, WBC count 8.6, platelet count 460 trending up Sodium 135, potassium 4.4, BUN 60, creatinine 2.5, glucose 200 cultures 7.3 phosphorus 4.5, Iron 22 TIBC 306, ferritin 42.6, reticulocyte count 4.3. B12 528, folate 7.7 Patient can be downgraded Objective Vital Signs & I&O Last 8 Hrs of Vitals and I&O: Intake & Output 08/13 0800 Intake Total 500 Output Total 100 Balance 400 Intake, Oral 500 Output, Urine 100 Exam General Appearance: no apparent distress, alert, awake, comfortable Head: atraumatic Neck: normal inspection Respiratory: normal breath sounds, chest non-tender Cardiovascular: s1 s2 Gastrointestinal: normal bowel sounds, soft, non-tender Extremities: no edema Current Medications: Current Medications Sig/Jannet Start time Last Medication Dose Route Stop Time Status Admin Albuterol Sulfate 3 ML Q4P PRN 08/10 2345 AC INH Albuterol Sulfate 3 ML TID 08/10 2199 AC 08/12 INH 205 Amlodipine Besylate 10 MG DAILY 08/10 1746 AC 08/12 PO 0932 Carvedilol 25 MG BID 08/10 220 AC 08/12 PO 2229 Fenofibrate 48 MG DAILY 08/12 1000 AC 08/12 PO 0932 Guaifenesin 10 ML Q6PRN PRN 08/10 211 AC 08/10 PO 2332 Hydralazine HCl 100 MG TID 08/11 1627 AC 08/12 PO 222 Hydroxyzine HCl 25 MG BID 08/11 2199 AC 08/12 PO 2227 Insulin Aspart 0 TIDAC 08/12 1200 AC 08/12 SC 1647 Insulin Detemir 7 UNITS AT BEDTIME 02/16 2200 AC 08/12 SC 2213 Insulin Human Regular 0 Q6 08/11 0715 DC 08/12 SC 0611 Nicotine 14 MG DAILY 08/11 1621 AC 08/12 TOP 0932 Omeprazole 40 MG DAILY AC 08/12 0700 AC 08/13 PO 0656 Oxycodone/ 1 TAB Q4P PRN 08/11 1645 AC 08/12 Acetaminophen PO 2235 Pravastatin Sodium 40 MG 1700 08/11 1700 AC 08/12 PO 1646 Racepinephrine 0.5 ML Q4P PRN 08/10 2345 AC 08/10 INH 2343 Trazodone HCl 150 MG QPM 08/11 2200 AC 08/12 PO 2228 Miscellaneous Findings: Patient underwent endoscopy and Colonoscopy with the following findings 1. Nodularity of the gastric fundus 2. Prominent atrophic prepyloric folds 3. Jejunal AVM with active bleeding controlled by a BiCAP electrocautery Impression/Plan Impression/Problem List Impression: This is a 61-year-old lady with past medical history significant for COPD, CHF, diabetes, GERD, hep C, IVDU, hypertension, chronic anemia admitted to the hospital with acute blood loss anemia and worsening of dyspnea. Assessment/plan: Respiratory #Acute on chronic respiratory failure: likely secondary to systolic heart failure in setting of previous diastolic heart dysfunction; She also has history of mild to moderate COPD currently no significant exacerbation -Consider echocardiogram and evaluation by cardiology as outpatient -Patient was initially on BiPAP on first night and has been transitioned to nasal cannula. -If she becomes somnolent, will do ABG Cardiovascular #Probable transfusion reaction versus acute pulmonary edema from blood transfusion: On the day of admission, the patient received 1 unit of packed RBCs and developed SOB IV methylprednisolone 60 mg 1 and IV Benadryl 25 mg 1. She required TRC therapy along with epinephrine via nebulizer. Chest x-ray report showed pulmonary vascular congestion for which she received IV Lasix 40 mg. Labs were negative for any blood transfusion the reactions. The patient has received a second unit of blood transfusion without any events #History of hypertension: -All home medications have been restarted amlodipine, hydralazine and carvedilol #History of hyperlipidemia -Continue statin and fenofibrate Hematology #Acute blood loss anemia likely secondary to Upper GI bleed: Patient presented to [place] ED with hemoglobin of 6.2 s/p video capsule endoscopy on Sunday with Dr. Hdz positive for active bleeding in the proximal small bowel due to vascular ectasia/arteriovenous malformations -Patient is status post endoscopy -H&H stable currently hemodynamically stable. Status post 2 unit of PRBC -Diet advanced to regular consistent carbohydrate -Monitor H&H every 12 (Transfuse to hemoglobin above 7) -Oral PPIs -Patient is being followed by GI recommendations appreciated -If active recurrent bleeding would consider repeat small bowel enteroscopy / double baloon enteroscopy -Patient has been receiving Epogen in the past, -Consider IV iron supplementation with low iron levels, *Epogen after repletion of iron stores Metabolic #DM: -Accu-Cheks and insulin sliding scale -Since patient has been advanced to regular diet. We resumed her home dose of Levemir at 14 units Alimentary #Diet advanced to regular consistent carbs patient is tolerating well. No BM since yesterday Nephrology #ADDY Likely secondary to renal hypoperfusion in the setting of symptomatic anemia, also consider volume depletion in setting of diuretic use. Baseline creatinine 2 -1.7 -Today 2.5 continue to monitor -Consider bladder scan -Urine electrolytes and cr pending -Lasix restarted #Mild hyponatremia Improving continue to monitor #Hyperkalemia in setting of acute resolved on Low K diet #Hyperphosphatemia in setting of acute resolved Neurology #History of insomnia -Continue trazodone DVT prohylaxis with ALPS only CODE STATUS full code Problem List: 1. GI bleed 2. Anemia Pain Ratin Tomorrow's Labs & Rationales: cbc icu bundle Plan DVT/Prophylaxis: mechanical, pharmacological
[2017-08-13 08:00] VITALS: BP 130/68
--- NOTE | 2017-08-13 09:19 | Transfer of Care Summary ---
Hospital Course Course Hospital Course: Reason for ICU admission: Acute blood loss anemia secondary to upper GI bleed HPI: Patient is a 61-year-old female with past medical history significant for COPD, dyslipidemia, CHF, Diabetes Mellitus, osteoporosis, chronic iron deficiency anemia, chronic kidney disease,who presented to the hospital with chief complaint of dyspnea, productive cough for the past week. Patient underwent video capsule endoscopy on Tuesday 08/[address] Hdz, which showed active bleeding in the proximal small bowel due to vascular ectasia /arteriovenous malformations and presented to [facility] ED with hemoglobin of 6.2.She has been admitted to [facility] for anemia at multiple times Interval events: -She is status post 2 units of PRBC transfusion -Patient underwent Small Bowel Enteroscopy w/ Control of Bleeding and Biopsy on 08/11 with follow-up findings 1. Nodularity of the gastric fundus 2. Prominent atrophic prepyloric folds 3. Jejunal AVM with active bleeding controlled by a BiCAP electrocautery -On the day of admission, the patient received 1 unit of packed RBCs and developed SOB IV methylprednisolone 60 mg and IV Benadryl 25 mg were given. She required TRC therapy along with epinephrine via nebulizer. Chest x-ray report showed pulmonary vascular congestion for which she received IV Lasix 40 mg. Labs were negative for any blood transfusion the reactions. The patient has received a second unit of blood transfusion without any events She is being treated evaluate for following conditions #Acute blood loss anemia likely secondary to Upper GI bleed: Patient presented to [facility] ED with hemoglobin of 6.2 s/p video capsule endoscopy on Sunday with Dr. Hdz positive for active bleeding in the proximal small bowel due to vascular ectasia/arteriovenous malformations. Her anemia is multifactorial with GI bleed and stage 4 CKD -Patient is status post endoscopy -H&H stable currently hemodynamically stable. Status post 2 unit of PRBC -Diet has been advanced to regular consistent carbohydrate -Oral PPIs -Fe gluconate 125 mg IV q day x 8 doses in setting of low iron stores -EPO 15,000 units S/C qwk #Probable transfusion reaction versus acute pulmonary edema from blood transfusion: see interval events #Acute on chronic respiratory failure: likely secondary to systolic heart failure with history of diastolic heart dysfunction; She also has history of mild to moderate COPD currently no significant exacerbation -Consider echocardiogram and evaluation by cardiology as outpatient -Patient was initially on BiPAP on first night and has been transitioned to nasal cannula and today to room air -If she becomes somnolent, do ABGs #ADDY in setting of stage IV CKD due to DM & HTN Likely secondary to renal hypoperfusion in the setting of symptomatic anemia, volume depletion in setting of diuretic use also on differential. Baseline creatinine 2-1.7 -We have resumed home dose of Lasix as per renal recommendations. #Mild hyponatremia Improving continue to monitor #Hyperkalemia in setting of ADDY resolved on Low K diet #Hyperphosphatemia in setting of ADDY resolved #History of hypertension: -Initially held but now all home medications have been restarted amlodipine, hydralazine and carvedilol #History of hyperlipidemia -Continue statin and fenofibrate #DM: -Accu-Cheks and insulin sliding scale -Initially the patient was nothing by mouth, her Levemir dose was reduced used to 7 units at bedtime. Since patient has been advanced to regular diet. We have resumed her home dose of Levemir at 14 units #History of insomnia -Continue trazodone Mechanical ventilation no NIPPV patient required BiPAP initially for acute respiratory failure for night of admission. She has weaned off BiPAP and nasal cannula currently on room air. Antibiotic none Catheter/lines [place] Catheter was initially placed later discontinued Things to follow-up -Continue to monitor H/H -Follow-up GI recommendation, provide outpatient follow-up -If active recurrent bleeding; consider repeat small bowel enteroscopy / double baloon enteroscopy -Patient will receive 8 doses of IV ferrous gluconate, then transition to oral supplementation -Follow-up UA, Urine electrolytes and cr -Consider ABGs if patient becomes somnolent, Nutrition Diet advanced to regular consistent carbs patient is tolerating well. No BM since yesterday DVT prophylaxis alps only in setting of GI bleed CODE STATUS full code Assessment/Plan: see above
--- NOTE | 2017-08-13 09:33 | PN- Nephrology ---
Assessment/Plan Nephrology Assessment: 1. CKD: severe, stage 4, due to DM & HTN; near baseline w/o renal replacement indication 2. Anemia: GI bleed & CKD; on MAURA w low Fe stores --> needs IV Fe Suggestion: 1. Fe gluconate 125 mg IV q day x 8 doses 2. restart maintenace furosemide 60 mg qday po 3. EPO 15,ooo units sc qwk per outpt dose OK for floor from renal perspective Subjective Subjective: Mild FLORES No CP No uremic sx No hematochezia or hematemesis Objective Vital Signs and I&Os Vital Signs Date Time Temp Pulse Resp B/P B/P Pulse O2 O2 Flow FiO2 Mean Ox Delivery Rate 08/13 0903 98 Nasal 1.0L Cannula 08/13 0800 98 Nasal 1.0L Cannula 08/13 0800 97.8 78 20 130/68 98 Nasal 1.0L Cannula 08/13 0400 97 Nasal 1.0L Cannula 08/13 0000 97 Nasal 1.0L Cannula 08/13 0000 98.6 78 20 153/81 97 Nasal 1.0L Cannula 08/12 2229 98.6 84 20 132/50 08/12 2227 98.6 84 20 132/50 08/12 2000 95 Nasal 1.0L Cannula 08/12 1646 79 140/62 08/12 1600 96 Nasal 1.0L Cannula 08/12 1600 97.3 79 22 150/70 96 Nasal 1.0L Cannula 08/12 1342 96 Nasal 1.0L Cannula 08/12 1200 96 Nasal 1.0L Cannula 08/12 0932 70 154/72 08/12 0932 70 154/72 08/12 0932 70 154/72 Intake & Output 08/13 1600 08/13 0400 08/12 1600 08/12 0400 08/11 1600 08/11 0400 Intake Total 500 648 393 7005 770 440 Output Total 100 300 580 300 740 600 Balance 400 027 906 0887 30 -160 Intake, Blood 380 300 Product Intake, IV 0 120 470 80 Intake, Oral 500 680 800 800 300 60 Number 3 0 2 2 Bowel Movements Output, Urine 100 300 580 300 740 600 Patient 180 lb Weight Weight Bed scale Measurement Method Physical Exam General Appearance: no apparent distress, alert, awake Head: atraumatic, normal appearance Neck: normal inspection Respiratory: no respiratory distress, quiet respiration, rhonchi (expir) Cardiovascular: regular rate/rhythm, edema (none) Abdomen: soft, non-tender, no organomegaly Extremities: no edema Skin: intact, normal color, warm/dry Results Pertinent Lab Results: Laboratory Tests 08/13 08/12 0545 2230 Chemistry Sodium (137 - 145 mmol/L) 135 L Potassium (3.5 - 5.1 mmol/L) 4.4 Chloride (98 - 107 mmol/L) 101 Carbon Dioxide (22 - 30 mmol/L) 26 Anion Gap (5 - 16) 9 BUN (7 - 17 mg/dL) 60 H Creatinine (0.5 - 1.0 mg/dL) 2.5 H Estimated GFR (>60 ml/min) 20 L Glucose (65 - 99 mg/dL) 200 H Calcium (8.4 - 10.2 mg/dL) 7.3 L Phosphorus (2.5 - 4.5 mg/dL) 4.5 Magnesium (1.6 - 2.3 mg/dL) 2.2 Total Bilirubin (0.2 - 1.3 mg/dL) 0.1 L AST (14 - 36 U/L) 14 ALT (9 - 52 U/L) 27 Albumin (3.5 - 5.0 g/dL) 2.4 L Hematology CBC w Diff NO MAN DIFF REQ NO MAN DIFF REQ WBC (4.8 - 10.8 /CUMM) 8.6 9.5 RBC (4.20 - 5.40 /CUMM) 2.89 L 3.01 L Hgb (12.0 - 16.0 G/DL) 7.9 L 8.1 L Hct (37 - 47 %) 25.1 L 25.7 L MCV (81.0 - 99.0 FL) 86.6 85.4 MCH (27.0 - 31.0 PG) 27.4 27.0 MCHC (33.0 - 37.0 G/DL) 31.6 L 31.6 L RDW (11.5 - 14.5 %) 18.9 H 18.2 H Plt Count (130 - 400 /CUMM) 460 H 440 H MPV (7.4 - 10.4 FL) 8.0 8.5 Gran % (42.2 - 75.2 %) 79.6 H 85.6 H Lymphocytes % (20.5 - 51.1 %) 9.6 L 8.0 L Monocytes % (1.7 - 9.3 %) 10.2 H 6.1 Eosinophils % (0 - 5 %) 0.5 0.3 Basophils % (0.0 - 2.0 %) 0.1 0 Absolute Granulocytes (1.4 - 6.5 /CUMM) 6.9 H 8.1 H Absolute Lymphocytes (1.2 - 3.4 /CUMM) 0.8 L 0.8 L Absolute Monocytes (0.10 - 0.60 /CUMM) 0.9 H 0.6 Absolute Eosinophils (0.0 - 0.7 /CUMM) 0 0 Absolute Basophils (0.0 - 0.2 /CUMM) 0 0 Retic Count (0.5 - 2.0 %) 4.38 H 08/1218 08/12 1334 1201 0600 Chemistry Sodium (137 - 145 mmol/L) 134 L 130 L Potassium (3.5 - 5.1 mmol/L) 4.5 5.3 H Chloride (98 - 107 mmol/L) 100 100 Carbon Dioxide (22 - 30 mmol/L) 25 22 Anion Gap (5 - 16) 8 8 BUN (7 - 17 mg/dL) 55 H 59 H Creatinine (0.5 - 1.0 mg/dL) 2.7 H 2.3 H Estimated GFR (>60 ml/min) 18 L 22 L Glucose (65 - 99 mg/dL) 188 H 157 H Calcium (8.4 - 10.2 mg/dL) 8.1 L 8.0 L Phosphorus (2.5 - 4.5 mg/dL) 5.6 H 6.1 H Magnesium (1.6 - 2.3 mg/dL) 2.2 2.3 Iron (37 - 170 ug/dL) 22 L TIBC (265 - 497 ug/dL) 306 Ferritin (11.1 - 264 ng/mL) 42.6 Total Bilirubin (0.2 - 1.3 mg/dL) 0.2 0.3 AST (14 - 36 U/L) 17 27 ALT (9 - 52 U/L) 34 29 Albumin (3.5 - 5.0 g/dL) 2.6 L 2.6 L Vitamin B12 (239 - 931 pg/mL) 528 Folate (2.76 - 20.0 ng/mL) 7.7 Hematology CBC w Diff NO MAN DIFF REQ WBC (4.8 - 10.8 /CUMM) 8.8 RBC (4.20 - 5.40 /CUMM) 2.86 L Hgb (12.0 - 16.0 G/DL) 7.7 L Hct (37 - 47 %) 24.6 L MCV (81.0 - 99.0 FL) 86.1 MCH (27.0 - 31.0 PG) 27.0 MCHC (33.0 - 37.0 G/DL) 31.4 L RDW (11.5 - 14.5 %) 19.0 H Plt Count (130 - 400 /CUMM) 363 MPV (7.4 - 10.4 FL) 8.3 Gran % (42.2 - 75.2 %) 85.8 H Lymphocytes % (20.5 - 51.1 %) 5.4 L Monocytes % (1.7 - 9.3 %) 8.8 Eosinophils % (0 - 5 %) 0 Basophils % (0.0 - 2.0 %) 0 Absolute Granulocytes (1.4 - 6.5 /CUMM) 7.6 H Absolute Lymphocytes (1.2 - 3.4 /CUMM) 0.5 L Absolute Monocytes (0.10 - 0.60 /CUMM) 0.8 H Absolute Eosinophils (0.0 - 0.7 /CUMM) 0 Absolute Basophils (0.0 - 0.2 /CUMM) 0 Urines Urine Color Cancelled Urine Clarity Cancelled Urine pH Cancelled Ur Specific [place] Cancelled Urine Protein Cancelled Urine Ketones Cancelled Urine Nitrite Cancelled Urine Bilirubin Cancelled Urine Urobilinogen Cancelled Ur Leukocyte Esterase Cancelled Ur Microscopic Cancelled Urine Hemoglobin Cancelled Urine Glucose Cancelled 08/11 08/11 2305 1610 Chemistry Sodium (137 - 145 mmol/L) 130 L 130 L Potassium (3.5 - 5.1 mmol/L) 5.0 5.6 H Chloride (98 - 107 mmol/L) 98 98 Carbon Dioxide (22 - 30 mmol/L) 20 L 21 L Anion Gap (5 - 16) 12 11 BUN (7 - 17 mg/dL) 56 H 57 H Creatinine (0.5 - 1.0 mg/dL) 2.6 H 2.4 H Estimated GFR (>60 ml/min) 19 L 21 L Glucose (65 - 99 mg/dL) 263 H 398 H Calcium (8.4 - 10.2 mg/dL) 8.3 L 7.8 L Phosphorus (2.5 - 4.5 mg/dL) 6.5 H 6.9 H Magnesium (1.6 - 2.3 mg/dL) 2.2 2.2 Total Bilirubin (0.2 - 1.3 mg/dL) 0.3 0.2 AST (14 - 36 U/L) 17 26 ALT (9 - 52 U/L) 30 33 Albumin (3.5 - 5.0 g/dL) 2.8 L 2.7 L Hematology CBC w Diff NO MAN DIFF REQ WBC (4.8 - 10.8 /CUMM) 9.0 7.7 RBC (4.20 - 5.40 /CUMM) 2.81 L 2.38 L Hgb (12.0 - 16.0 G/DL) 7.6 L 6.6 *L Hct (37 - 47 %) 24.2 L 21.1 L MCV (81.0 - 99.0 FL) 86.4 89.0 MCH (27.0 - 31.0 PG) 27.0 28.0 MCHC (33.0 - 37.0 G/DL) 31.3 L 31.4 L RDW (11.5 - 14.5 %) 19.0 H 17.0 H Plt Count (130 - 400 /CUMM) 364 336 MPV (7.4 - 10.4 FL) 8.2 8.5 Gran % (42.2 - 75.2 %) 84.6 H 90.1 H Lymphocytes % (20.5 - 51.1 %) 4.4 L 6.3 L Monocytes % (1.7 - 9.3 %) 11.0 H 3.6 Eosinophils % (0 - 5 %) 0 0 Basophils % (0.0 - 2.0 %) 0 0 Absolute Granulocytes (1.4 - 6.5 /CUMM) 7.6 H 7.0 H Absolute Lymphocytes (1.2 - 3.4 /CUMM) 0.4 L 0.5 L Absolute Monocytes (0.10 - 0.60 /CUMM) 1.0 H 0.3 Absolute Eosinophils (0.0 - 0.7 /CUMM) 0 0 Absolute Basophils (0.0 - 0.2 /CUMM) 0 0 08/11 08/11 0800 0415 Chemistry Sodium (137 - 145 mmol/L) 133 L Potassium (3.5 - 5.1 mmol/L) 5.5 H Chloride (98 - 107 mmol/L) 101 Carbon Dioxide (22 - 30 mmol/L) 23 Anion Gap (5 - 16) 9 BUN (7 - 17 mg/dL) 45 H Creatinine (0.5 - 1.0 mg/dL) 2.4 H Estimated GFR (>60 ml/min) 21 L Glucose (65 - 99 mg/dL) 253 H Calcium (8.4 - 10.2 mg/dL) 8.0 L Phosphorus (2.5 - 4.5 mg/dL) 5.5 H Magnesium (1.6 - 2.3 mg/dL) 2.1 Total Bilirubin (0.2 - 1.3 mg/dL) 0.2 AST (14 - 36 U/L) 23 ALT (9 - 52 U/L) 33 Albumin (3.5 - 5.0 g/dL) 2.7 L Hematology CBC w Diff MAN DIFF ORDERED NO MAN DIFF REQ WBC (4.8 - 10.8 /CUMM) 9.4 10.3 RBC (4.20 - 5.40 /CUMM) 2.82 L 2.42 L Hgb (12.0 - 16.0 G/DL) 7.8 L 6.7 *L Hct (37 - 47 %) 24.9 L 21.5 L MCV (81.0 - 99.0 FL) 88.2 88.8 MCH (27.0 - 31.0 PG) 27.6 27.5 MCHC (33.0 - 37.0 G/DL) 31.3 L 31.0 L RDW (11.5 - 14.5 %) 16.5 H 17.0 H Plt Count (130 - 400 /CUMM) 388 358 MPV (7.4 - 10.4 FL) 8.4 8.1 Gran % (42.2 - 75.2 %) 90.8 H 91.1 H Lymphocytes % (20.5 - 51.1 %) 6.3 L 5.3 L Monocytes % (1.7 - 9.3 %) 2.8 3.6 Eosinophils % (0 - 5 %) 0.1 0 Basophils % (0.0 - 2.0 %) 0 0 Absolute Granulocytes (1.4 - 6.5 /CUMM) 8.6 H 9.4 H Absolute Lymphocytes (1.2 - 3.4 /CUMM) 0.6 L 0.5 L Absolute Monocytes (0.10 - 0.60 /CUMM) 0.3 0.4 Absolute Eosinophils (0.0 - 0.7 /CUMM) 0 0 Absolute Basophils (0.0 - 0.2 /CUMM) 0 0 Platelet Estimate (ADEQUATE) VERIFIED BY SMEAR Polychromasia 1+ Basophilic Stippling 1+ Anisocytosis 1+ 08/11 08/10 0010 2345 Hematology CBC w Diff MAN DIFF ORDERED WBC (4.8 - 10.8 /CUMM) 12.0 H RBC (4.20 - 5.40 /CUMM) 2.46 L Hgb (12.0 - 16.0 G/DL) 6.9 *L Hct (37 - 47 %) 21.9 L MCV (81.0 - 99.0 FL) 88.9 MCH (27.0 - 31.0 PG) 28.0 MCHC (33.0 - 37.0 G/DL) 31.5 L RDW (11.5 - 14.5 %) 16.8 H Plt Count (130 - 400 /CUMM) 336 MPV (7.4 - 10.4 FL) 8.4 Gran % (42.2 - 75.2 %) 91.2 H Lymphocytes % (20.5 - 51.1 %) 3.6 L Monocytes % (1.7 - 9.3 %) 5.1 Eosinophils % (0 - 5 %) 0.1 Basophils % (0.0 - 2.0 %) 0 Absolute Granulocytes (1.4 - 6.5 /CUMM) 10.9 H Segmented Neutrophils (42.2 - 75.2 %) 89 H Band Neutrophils (0.0 - 5.0 %) 9 H Absolute Lymphocytes (1.2 - 3.4 /CUMM) 0.4 L Lymphocytes (20.5 - 51.1 %) 1 L Monocytes (1.7 - 9.3 %) 1 L Absolute Monocytes (0.10 - 0.60 /CUMM) 0.6 Absolute Eosinophils (0.0 - 0.7 /CUMM) 0 Absolute Basophils (0.0 - 0.2 /CUMM) 0 Platelet Estimate (ADEQUATE) ADEQUATE Polychromasia 1+ Poikilocytosis FEW Anisocytosis 1+ Ovalocytes FEW Other Body Source Fld Total RBCs Counted (%) 100 Urines Urinalysis HEAVY H Urine Color (YEL,AMB,STR) YEL Urine Clarity (CLEAR) HAZY H Urine pH (5.0 - 8.0) 6.0 Ur Specific [place] (1.001 - 1.035) >= 1.030 Urine Protein (NEG,<30 MG/DL) >=300 H Urine Ketones (NEG) NEG Urine Nitrite (NEG) NEG Urine Bilirubin (NEG) NEG Urine Urobilinogen (0.1 - 1.0 EU/dl) 0.2 Ur Leukocyte Esterase (NEG) NEG Ur Microscopic SEDIMENT EXAMINED Urine RBC (0 - 5 /HPF) 1-3 Urine WBC (0 - 2 /HPF) 1-3 H Ur Epithelial Cells (NONE,FEW) RARE Urine Bacteria (NEG/NONE) FEW H Hyaline Casts (0/LPF) RARE H Granular Casts (NONE /LPF) 1-3 H Urine Mucus (FEW,NONE) FEW Urine Hemoglobin (NEG) TRACE-INTACT Urine Glucose (N MG/DL) NEG 08/10 08/10 08/10 1748 1715 1458 Chemistry Sodium (137 - 145 mmol/L) 130 L Potassium (3.5 - 5.1 mmol/L) 4.8 Chloride (98 - 107 mmol/L) 100 Carbon Dioxide (22 - 30 mmol/L) 24 Anion Gap (5 - 16) 6 BUN (7 - 17 mg/dL) 40 H Creatinine (0.5 - 1.0 mg/dL) 2.4 H Estimated GFR (>60 ml/min) 21 L BUN/Creatinine Ratio (7 - 25 %) 16.7 Glucose (65 - 99 mg/dL) 182 H Lactic Acid (0.7 - 2.1 mmol/L) Cancelled 0.9 Calcium (8.4 - 10.2 mg/dL) 7.8 L Total Bilirubin (0.2 - 1.3 mg/dL) 0.1 L AST (14 - 36 U/L) 25 ALT (9 - 52 U/L) 27 Alkaline Phosphatase (<127 U/L) 43 Troponin I (< 0.11 ng/ml) 0.04 [id number] Pept (<125 pg/mL) 5750 H Total Protein (6.3 - 8.2 g/dL) 5.3 L Albumin (3.5 - 5.0 g/dL) 2.7 L Globulin (1.9 - 4.2 gm/dL) 2.6 Albumin/Globulin Ratio (1.1 - 2.2 %) 1.0 L Coagulation PT (9.4 - 12.5 SEC) 14.1 H INR (0.90 - 1.19) 1.35 H APTT (25 - 37 SEC) 31 Hematology CBC w Diff NO MAN DIFF REQ WBC (4.8 - 10.8 /CUMM) 8.7 RBC (4.20 - 5.40 /CUMM) 2.27 L Hgb (12.0 - 16.0 G/DL) 6.2 *L Hct (37 - 47 %) 20.0 L MCV (81.0 - 99.0 FL) 88.1 MCH (27.0 - 31.0 PG) 27.5 MCHC (33.0 - 37.0 G/DL) 31.2 L RDW (11.5 - 14.5 %) 16.8 H Plt Count (130 - 400 /CUMM) 366 MPV (7.4 - 10.4 FL) 7.6 Gran % (42.2 - 75.2 %) 80.6 H Lymphocytes % (20.5 - 51.1 %) 7.6 L Monocytes % (1.7 - 9.3 %) 11.6 H Eosinophils % (0 - 5 %) 0.1 Basophils % (0.0 - 2.0 %) 0.1 Absolute Granulocytes (1.4 - 6.5 /CUMM) 7.0 H Absolute Lymphocytes (1.2 - 3.4 /CUMM) 0.7 L Absolute Monocytes (0.10 - 0.60 /CUMM) 1.0 H Absolute Eosinophils (0.0 - 0.7 /CUMM) 0 Absolute Basophils (0.0 - 0.2 /CUMM) 0 08/10 1423 Chemistry [id number] Pept Cancelled Imaging/Other Studies: CXR: Mild central pulmonary vascular congestion is persistent compared to prior study. No overt pulmonary edema. No infiltrate or pleural effusion. IMPRESSION: Persistent mild central pulmonary vascular congestion.
--- NOTE | 2017-08-13 09:59 | PN- CRCU ---
Subjective HPI/Critical Care Issues: Doing well stable Objective Current Medications: Current Medications Sig/Jannet Start time Last Medication Dose Route Stop Time Status Admin Albuterol Sulfate 3 ML Q4P PRN 08/10 2345 AC INH Albuterol Sulfate 3 ML TID 08/10 2200 AC 08/13 INH 0857 Amlodipine Besylate 10 MG DAILY 08/10 1746 AC 08/12 PO 0932 Carvedilol 25 MG BID 08/10 2200 AC 08/12 PO 2229 Fenofibrate 48 MG DAILY 08/12 1000 AC 08/12 PO 0932 Guaifenesin 10 ML Q6PRN PRN 08/10 2115 AC 08/10 PO 2332 Hydralazine HCl 100 MG TID 08/11 1627 AC 08/12 PO 2227 Hydroxyzine HCl 25 MG BID 08/11 2200 AC 08/12 PO 2227 Insulin Aspart 0 TIDAC 08/12 1200 AC 08/13 SC 0830 Insulin Detemir 14 UNITS AT BEDTIME 08/13 2200 AC SC Insulin Detemir 7 UNITS AT BEDTIME 08/10 2200 DC 08/12 SC 2213 Insulin Human Regular 0 Q6 08/11 0715 NJ 08/12 SC 0611 Nicotine 14 MG DAILY 08/11 1621 AC 08/12 TOP 0932 Omeprazole 40 MG DAILY AC 08/12 0700 AC 08/13 PO 0656 Oxycodone/ 1 TAB Q4P PRN 08/11 1645 AC 08/13 Acetaminophen PO 0838 Pravastatin Sodium 40 MG 1700 08/11 1700 AC 08/12 PO 1646 Racepinephrine 0.5 ML Q4P PRN 08/10 2345 AC 08/10 INH 2343 Trazodone HCl 150 MG QPM 08/11 2200 AC 08/12 PO 2228 Vital Signs & I&O Last 24 Hrs of Vitals and I&O: Vital Signs Date Time Temp Pulse Resp B/P B/P Pulse O2 O2 Flow FiO2 Mean Ox Delivery Rate 08/13 0903 98 Nasal 1.0L Cannula 08/13 0800 98 Nasal 1.0L Cannula 08/13 0800 97.8 78 20 130/68 98 Nasal 1.0L Cannula 08/13 0400 97 Nasal 1.0L Cannula 08/13 0000 97 Nasal 1.0L Cannula 08/13 0000 98.6 78 20 153/81 97 Nasal 1.0L Cannula 08/12 2228 98.6 84 20 132/50 08/12 2227 98.6 84 20 132/50 08/12 1999 95 Nasal 1.0L Cannula 08/12 1646 79 140/62 08/12 1600 96 Nasal 1.0L Cannula 08/12 1600 97.3 79 22 150/70 96 Nasal 1.0L Cannula 08/12 1342 96 Nasal 1.0L Cannula 08/12 1200 96 Nasal 1.0L Cannula Intake & Output 08/13 1600 08/13 0800 08/13 0000 Intake Total 500 680 Output Total 100 300 Balance 400 380 Intake, Oral 500 680 Output, Urine 100 300 Impression/Plan Impression/Plan Impression/Plan: General Appearance: alert, awake, on BIPAP Neck: normal inspection Respiratory: normal breath sounds, chest non-tender, with sig wheezing Cardiovascular: S1 S2 Gastrointestinal: normal bowel sounds, soft, non-tender Extremities: no edema This is a lady with chronic anemia with upper GI bleed, abnormal video capsule endoscopy, previous vascular ectasia was admitted to the hospital with significant anemia. She does have significant COPD, dyslipidemia, medication noncompliance, hypertension, previous heart failure, diabetes which is uncontrolled, osteoporosis and chronic anemia. 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 Subsequently she did have a small bowel enteroscopy with control of bleeding and biopsy. 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 The bleeding seems to have stopped. Patient was also noted to have probably a transfusion reaction versus congestive heart failure now she is in acute on chronic respiratory insufficiency requiring BiPAP. Patient has received intravenous steroids and Benadryl and Lasix as well. She seems to be improving now. Her issues include * Acute blood loss anemia due to a jejunal bleed status post endoscopy with good results * Resolved Acute on chronic respiratory failure prob due to pulm edema vs acute lung injury * Probable transfusion reaction versus acute pulmonary edema from blood transfusion * History of mild to moderate COPD with mild exacerbation * Hypertension at times uncontrolled * Previous diastolic heart dysfunction now with probable diastolic heart failure * Chronic kidney disease * Diabetes which seems to be uncontrolled * Recent URI which shortness of breath improved RECOMMENDATION Transfer to the floor Follow hemoglobin and hematocrit and creatinine Rpt iv lasix one dose today Continue DuoNeb prn Continue proton pump inhibitor Diet per Follow fingerstick glucose See renal note wean off oxygen
[2017-08-13 16:00] VITALS: BP 120/70
[2017-08-13 23:28] VITALS: BP 128/82
[2017-08-14 06:33] VITALS: BP 150/60
[2017-08-14 07:48] LABS: ABSOLUTE BASOPHIL COUNT 0 /CUMM (0.0-0.2); ABSOLUTE EOSINOPHIL COUNT 0.2 /CUMM (0.0-0.7); ABSOLUTE GRANULOCYTE CT 6.2 /CUMM (1.4-6.5); ABSOLUTE LYMPH COUNT 1.3 /CUMM (1.2-3.4); ABSOLUTE MONOCYTE COUNT 0.8 /CUMM (0.10-0.60); BASOPHIL % 0.2 % (0.0-2.0); HEMATOCRIT 26.8 % (37-47); MEAN CORPUSCULAR HGB 27.5 PG (27.0-31.0); MEAN CORPUSCULAR HGB CONC 31.8 G/DL (33.0-37.0); MEAN CORPUSCULAR VOLUME 86.5 FL (81.0-99.0); MEAN PLATELET VOLUME 8.4 FL (7.4-10.4); RBC DISTRIBUTION WIDTH 18.5 % (11.5-14.5); WHITE BLOOD CELL COUNT 8.5 /CUMM (4.8-10.8)
[2017-08-14 08:22] LABS: GRANULOCYTE % 73.2 % (42.2-75.2); PLATELET COUNT 536 /CUMM (130-400)
--- NOTE | 2017-08-14 10:29 | PN- Nephrology ---
Assessment/Plan Nephrology Assessment: Stable renal function. Suggestion: No changes. Subjective Subjective: No complaints today, up in chair. Objective Vital Signs and I&Os Vital Signs Date Time Temp Pulse Resp B/P B/P Pulse O2 O2 Flow FiO2 Mean Ox Delivery Rate 08/14 0748 71 150/60 08/14 0747 71 150/60 08/14 0747 71 150/60 08/14 0633 97.7 71 20 150/60 94 Room Air 08/13 2328 98.2 76 18 128/82 93 Room Air Room Air 08/13 2206 80 138/62 08/13 2206 80 138/62 08/13 2033 98 Room Air Room Air 08/13 1832 80 138/70 08/13 1600 97.0 78 20 120/70 96 Room Air 08/13 1210 78 140/80 08/13 1209 78 140/80 Intake & Output 08/14 1600 08/14 0400 08/13 1600 08/13 0400 08/12 1600 08/12 0400 Intake Total 275 555 5258 599 307 6330 Output Total 500 300 580 300 Balance 110 400 900 725 958 4280 Intake, Blood 380 Product Intake, IV 10 100 0 120 Intake, Oral 658 647 3112 680 800 800 Number 0 3 0 Bowel Movements Output, Urine 500 300 580 300 Patient 180 lb Weight Physical Exam: NAD VS as above Lungs: clear CV: no rub Abd: nontender Exts: no edema Neuro: no asterixis. Current Medications: Current Medications Sig/Jannet Start time Last Medication Dose Route Stop Time Status Admin Albuterol Sulfate 3 ML Q4P PRN 08/10 2345 AC INH Albuterol Sulfate 3 ML TID 08/10 220 AC 08/14 INH 0830 Amlodipine Besylate 10 MG DAILY 08/10 1746 AC 08/14 PO 0747 Carvedilol 25 MG BID 08/10 2200 AC 08/14 PO 0747 Epoetin Elia 15,000 U Q168 08/13 1015 AC 08/13 SC 1211 Fenofibrate 48 MG DAILY 08/12 1000 AC 08/14 PO 0747 Ferric Sodium 125 MG DAILY 08/13 1007 AC 08/14 Gluconate Complex IV 08/20 1059 1020 Sodium Chloride 100 ML Furosemide 60 MG DAILY 08/13 1055 AC 08/14 PO 0747 Guaifenesin 10 ML Q6PRN PRN 08/10 2115 AC 08/10 PO 2332 Hydralazine HCl 100 MG TID 08/11 1627 AC 08/14 PO 0748 Hydroxyzine HCl 25 MG BID 08/11 2200 AC 08/14 PO 0748 Insulin Aspart 0 TIDAC 08/12 1200 AC 08/14 SC 0747 Insulin Detemir 14 UNITS AT BEDTIME 08/13 2200 AC 08/13 SC 2203 Nicotine 14 MG DAILY 08/11 1621 AC 08/14 TOP 0748 Omeprazole 40 MG DAILY AC 08/12 0700 AC 08/14 PO 0645 Oxycodone/ 1 TAB Q4P PRN 08/11 1645 AC 08/14 Acetaminophen PO 0754 Pravastatin Sodium 40 MG 1700 08/11 1700 AC 08/13 PO 1700 Racepinephrine 0.5 ML Q4P PRN 08/10 2345 AC 08/10 INH 2343 Trazodone HCl 150 MG QPM 08/11 2200 AC 08/13 PO 2204 Results Pertinent Lab Results: Laboratory Tests 08/14 08/13 0616 1800 Chemistry Sodium (137 - 145 mmol/L) 137 Potassium (3.5 - 5.1 mmol/L) 4.7 Chloride (98 - 107 mmol/L) 104 Carbon Dioxide (22 - 30 mmol/L) 23 Anion Gap (5 - 16) 10 BUN (7 - 17 mg/dL) 60 H Creatinine (0.5 - 1.0 mg/dL) 2.3 H Estimated GFR (>60 ml/min) 22 L BUN/Creatinine Ratio (7 - 25 %) 26.1 H Phosphorus (2.5 - 4.5 mg/dL) 4.2 Magnesium (1.6 - 2.3 mg/dL) 2.2 Hematology CBC w Diff NO MAN DIFF REQ Cancelled WBC (4.8 - 10.8 /CUMM) 8.5 Cancelled RBC (4.20 - 5.40 /CUMM) 3.10 L Cancelled Hgb (12.0 - 16.0 G/DL) 8.5 L Cancelled Hct (37 - 47 %) 26.8 L Cancelled MCV (81.0 - 99.0 FL) 86.5 Cancelled MCH (27.0 - 31.0 PG) 27.5 Cancelled MCHC (33.0 - 37.0 G/DL) 31.8 L Cancelled RDW (11.5 - 14.5 %) 18.5 H Cancelled Plt Count (130 - 400 /CUMM) 536 H Cancelled MPV (7.4 - 10.4 FL) 8.4 Cancelled Gran % (42.2 - 75.2 %) 73.2 Lymphocytes % (20.5 - 51.1 %) 15.5 L Monocytes % (1.7 - 9.3 %) 9.1 Eosinophils % (0 - 5 %) 2.0 Basophils % (0.0 - 2.0 %) 0.2 Absolute Granulocytes (1.4 - 6.5 /CUMM) 6.2 Absolute Lymphocytes (1.2 - 3.4 /CUMM) 1.3 Absolute Monocytes (0.10 - 0.60 /CUMM) 0.8 H Absolute Eosinophils (0.0 - 0.7 /CUMM) 0.2 Absolute Basophils (0.0 - 0.2 /CUMM) 0 08/13 08/13 08/13 1325 1325 0600 Urines Urine Color (YEL,AMB,STR) YEL Urine Clarity (CLEAR) CLEAR Urine pH (5.0 - 8.0) 6.0 Ur Specific [place] (1.001 - 1.035) 1.025 Urine Protein (NEG,<30 MG/DL) 100 H Urine Ketones (NEG) NEG Urine Nitrite (NEG) NEG Urine Bilirubin (NEG) NEG Urine Urobilinogen (0.1 - 1.0 EU/dl) 0.2 Ur Leukocyte Esterase (NEG) TRACE H Ur Microscopic SEDIMENT EXAMINED Urine WBC (0 - 2 /HPF) 10-15 H Ur Epithelial Cells (NONE,FEW) FEW Urine Bacteria (NEG/NONE) FEW H Micro UA Comment [place] H Urine Hemoglobin (NEG) NEG Ur Random Creatinine (mg/dL) 75.7 Cancelled Ur Random Sodium (30 - 90 mmol/L) 21 L Ur Random Potassium (mmol/L) 12.5 Fraction Sodium Excret (<1% %) 0.5 Urine Glucose (N MG/DL) 100 H 08/13 08/12 0545 2230 Chemistry Sodium (137 - 145 mmol/L) 135 L Potassium (3.5 - 5.1 mmol/L) 4.4 Chloride (98 - 107 mmol/L) 101 Carbon Dioxide (22 - 30 mmol/L) 26 Anion Gap (5 - 16) 9 BUN (7 - 17 mg/dL) 60 H Creatinine (0.5 - 1.0 mg/dL) 2.5 H Estimated GFR (>60 ml/min) 20 L Glucose (65 - 99 mg/dL) 200 H Calcium (8.4 - 10.2 mg/dL) 7.3 L Phosphorus (2.5 - 4.5 mg/dL) 4.5 Magnesium (1.6 - 2.3 mg/dL) 2.2 Total Bilirubin (0.2 - 1.3 mg/dL) 0.1 L AST (14 - 36 U/L) 14 ALT (9 - 52 U/L) 27 Albumin (3.5 - 5.0 g/dL) 2.4 L Hematology CBC w Diff NO MAN DIFF REQ NO MAN DIFF REQ WBC (4.8 - 10.8 /CUMM) 8.6 9.5 RBC (4.20 - 5.40 /CUMM) 2.89 L 3.01 L Hgb (12.0 - 16.0 G/DL) 7.9 L 8.1 L Hct (37 - 47 %) 25.1 L 25.7 L MCV (81.0 - 99.0 FL) 86.6 85.4 MCH (27.0 - 31.0 PG) 27.4 27.0 MCHC (33.0 - 37.0 G/DL) 31.6 L 31.6 L RDW (11.5 - 14.5 %) 18.9 H 18.2 H Plt Count (130 - 400 /CUMM) 460 H 440 H MPV (7.4 - 10.4 FL) 8.0 8.5 Gran % (42.2 - 75.2 %) 79.6 H 85.6 H Lymphocytes % (20.5 - 51.1 %) 9.6 L 8.0 L Monocytes % (1.7 - 9.3 %) 10.2 H 6.1 Eosinophils % (0 - 5 %) 0.5 0.3 Basophils % (0.0 - 2.0 %) 0.1 0 Absolute Granulocytes (1.4 - 6.5 /CUMM) 6.9 H 8.1 H Absolute Lymphocytes (1.2 - 3.4 /CUMM) 0.8 L 0.8 L Absolute Monocytes (0.10 - 0.60 /CUMM) 0.9 H 0.6 Absolute Eosinophils (0.0 - 0.7 /CUMM) 0 0 Absolute Basophils (0.0 - 0.2 /CUMM) 0 0 Retic Count (0.5 - 2.0 %) 4.38 H 18 18 08/12 1334 1201 0600 Chemistry Sodium (137 - 145 mmol/L) 134 L 130 L Potassium (3.5 - 5.1 mmol/L) 4.5 5.3 H Chloride (98 - 107 mmol/L) 100 100 Carbon Dioxide (22 - 30 mmol/L) 25 22 Anion Gap (5 - 16) 8 8 BUN (7 - 17 mg/dL) 55 H 59 H Creatinine (0.5 - 1.0 mg/dL) 2.7 H 2.3 H Estimated GFR (>60 ml/min) 18 L 22 L Glucose (65 - 99 mg/dL) 188 H 157 H Calcium (8.4 - 10.2 mg/dL) 8.1 L 8.0 L Phosphorus (2.5 - 4.5 mg/dL) 5.6 H 6.1 H Magnesium (1.6 - 2.3 mg/dL) 2.2 2.3 Iron (37 - 170 ug/dL) 22 L TIBC (265 - 497 ug/dL) 306 Ferritin (11.1 - 264 ng/mL) 42.6 Total Bilirubin (0.2 - 1.3 mg/dL) 0.2 0.3 AST (14 - 36 U/L) 17 27 ALT (9 - 52 U/L) 34 29 Albumin (3.5 - 5.0 g/dL) 2.6 L 2.6 L Vitamin B12 (239 - 931 pg/mL) 528 Folate (2.76 - 20.0 ng/mL) 7.7 Hematology CBC w Diff NO MAN DIFF REQ WBC (4.8 - 10.8 /CUMM) 8.8 RBC (4.20 - 5.40 /CUMM) 2.86 L Hgb (12.0 - 16.0 G/DL) 7.7 L Hct (37 - 47 %) 24.6 L MCV (81.0 - 99.0 FL) 86.1 MCH (27.0 - 31.0 PG) 27.0 MCHC (33.0 - 37.0 G/DL) 31.4 L RDW (11.5 - 14.5 %) 19.0 H Plt Count (130 - 400 /CUMM) 363 MPV (7.4 - 10.4 FL) 8.3 Gran % (42.2 - 75.2 %) 85.8 H Lymphocytes % (20.5 - 51.1 %) 5.4 L Monocytes % (1.7 - 9.3 %) 8.8 Eosinophils % (0 - 5 %) 0 Basophils % (0.0 - 2.0 %) 0 Absolute Granulocytes (1.4 - 6.5 /CUMM) 7.6 H Absolute Lymphocytes (1.2 - 3.4 /CUMM) 0.5 L Absolute Monocytes (0.10 - 0.60 /CUMM) 0.8 H Absolute Eosinophils (0.0 - 0.7 /CUMM) 0 Absolute Basophils (0.0 - 0.2 /CUMM) 0 Urines Urine Color Cancelled Urine Clarity Cancelled Urine pH Cancelled Ur Specific [place] Cancelled Urine Protein Cancelled Urine Ketones Cancelled Urine Nitrite Cancelled Urine Bilirubin Cancelled Urine Urobilinogen Cancelled Ur Leukocyte Esterase Cancelled Ur Microscopic Cancelled Urine Hemoglobin Cancelled Urine Glucose Cancelled 08/11 08/11 2305 1610 Chemistry Sodium (137 - 145 mmol/L) 130 L 130 L Potassium (3.5 - 5.1 mmol/L) 5.0 5.6 H Chloride (98 - 107 mmol/L) 98 98 Carbon Dioxide (22 - 30 mmol/L) 20 L 21 L Anion Gap (5 - 16) 12 11 BUN (7 - 17 mg/dL) 56 H 57 H Creatinine (0.5 - 1.0 mg/dL) 2.6 H 2.4 H Estimated GFR (>60 ml/min) 19 L 21 L Glucose (65 - 99 mg/dL) 263 H 398 H Calcium (8.4 - 10.2 mg/dL) 8.3 L 7.8 L Phosphorus (2.5 - 4.5 mg/dL) 6.5 H 6.9 H Magnesium (1.6 - 2.3 mg/dL) 2.2 2.2 Total Bilirubin (0.2 - 1.3 mg/dL) 0.3 0.2 AST (14 - 36 U/L) 17 26 ALT (9 - 52 U/L) 30 33 Albumin (3.5 - 5.0 g/dL) 2.8 L 2.7 L Hematology CBC w Diff NO MAN DIFF REQ WBC (4.8 - 10.8 /CUMM) 9.0 7.7 RBC (4.20 - 5.40 /CUMM) 2.81 L 2.38 L Hgb (12.0 - 16.0 G/DL) 7.6 L 6.6 *L Hct (37 - 47 %) 24.2 L 21.1 L MCV (81.0 - 99.0 FL) 86.4 89.0 MCH (27.0 - 31.0 PG) 27.0 28.0 MCHC (33.0 - 37.0 G/DL) 31.3 L 31.4 L RDW (11.5 - 14.5 %) 19.0 H 17.0 H Plt Count (130 - 400 /CUMM) 364 336 MPV (7.4 - 10.4 FL) 8.2 8.5 Gran % (42.2 - 75.2 %) 84.6 H 90.1 H Lymphocytes % (20.5 - 51.1 %) 4.4 L 6.3 L Monocytes % (1.7 - 9.3 %) 11.0 H 3.6 Eosinophils % (0 - 5 %) 0 0 Basophils % (0.0 - 2.0 %) 0 0 Absolute Granulocytes (1.4 - 6.5 /CUMM) 7.6 H 7.0 H Absolute Lymphocytes (1.2 - 3.4 /CUMM) 0.4 L 0.5 L Absolute Monocytes (0.10 - 0.60 /CUMM) 1.0 H 0.3 Absolute Eosinophils (0.0 - 0.7 /CUMM) 0 0 Absolute Basophils (0.0 - 0.2 /CUMM) 0 0
[2017-08-14 15:13] VITALS: BP 142/66
[2017-08-14 22:11] VITALS: BP 152/62
[2017-08-15 06:34] VITALS: BP 138/62
--- NOTE | 2017-08-15 08:33 | PN- Nephrology ---
Assessment/Plan Nephrology Assessment: Stable renal function. Suggestion: No changes from renal standpoint. Subjective Subjective: No complaints today, eating breakfast. Objective Vital Signs and I&Os Vital Signs Date Time Temp Pulse Resp B/P B/P Pulse O2 O2 Flow FiO2 Mean Ox Delivery Rate 08/15 0641 99 Nasal 2.0L Cannula 08/15 0634 98.3 73 18 138/62 94 Nasal 2.0L Cannula 08/15 0000 Room Air 08/14 2211 98.5 78 16 152/62 96 Room Air 08/14 2155 78 152/62 08/14 2155 78 152/62 08/14 1900 91 Room Air 08/14 1632 73 142/66 08/14 1513 97.6 73 20 142/66 94 Intake & Output 08/15 1600 08/15 0400 08/14 1600 08/14 0400 08/13 1600 08/13 0400 Intake Total 1617 067 1890 680 Output Total 980 488 8940 500 300 Balance -600 -300 10 400 900 380 Intake, IV 110 100 Intake, Oral 055 153 6108 680 Number 1 0 Bowel Movements Output, Urine 522 524 1277 500 300 Patient 180 lb Weight Physical Exam: NAD VS as above Lungs: clear CV: no rub Abd: nontender Exts: no edema Neuro: no asterixis. Current Medications: Current Medications Sig/Jannet Start time Last Medication Dose Route Stop Time Status Admin Albuterol Sulfate 3 ML BID 08/14 2199 AC 08/15 INH 0631 Albuterol Sulfate 3 ML Q4P PRN 08/10 2345 AC INH Albuterol Sulfate 3 ML TID 08/10 2200 DC 08/14 INH 0830 Amlodipine Besylate 10 MG DAILY 08/10 1746 AC 08/14 PO 0747 Carvedilol 25 MG BID 08/10 2200 AC 08/14 PO 2155 Epoetin Elia 15,000 U Q168 08/13 1015 AC 08/13 SC 1211 Fenofibrate 48 MG DAILY 08/12 1000 AC 08/14 PO 0747 Ferric Sodium 125 MG DAILY 08/13 1007 AC 08/14 Gluconate Complex IV 08/20 1059 1020 Sodium Chloride 100 ML Furosemide 60 MG DAILY 08/13 1055 AC 08/14 PO 0747 Guaifenesin 10 ML Q6PRN PRN 08/10 2115 AC 08/10 PO 2332 Hydralazine HCl 100 MG TID 08/11 1627 AC 08/14 PO 2155 Hydroxyzine HCl 25 MG BID 08/11 2200 AC 08/14 PO 2152 Insulin Aspart 0 AT BEDTIME 08/15 2200 DC 08/14 SC 2230 Insulin Aspart 0 AT BEDTIME 08/14 2345 AC SC Insulin Aspart 0 TIDAC 08/12 1200 AC 08/14 SC 1631 Insulin Detemir 14 UNITS AT BEDTIME 08/13 2200 AC 08/14 SC 2156 Nicotine 14 MG DAILY 08/11 1621 AC 08/14 TOP 0748 Omeprazole 40 MG DAILY AC 08/12 0700 AC 08/15 PO 0611 Oxycodone/ 1 TAB Q4P PRN 08/11 1645 AC 08/14 Acetaminophen PO 2159 Pravastatin Sodium 40 MG 1700 08/11 1700 AC 08/14 PO 1631 Racepinephrine 0.5 ML Q4P PRN 08/10 2345 AC 08/10 INH 2343 Trazodone HCl 150 MG QPM 08/11 220 AC 08/14 PO 215 Results Pertinent Lab Results: Laboratory Tests 08/14 08/14 08/13 1712 0616 1800 Chemistry Sodium (137 - 145 mmol/L) 137 Potassium (3.5 - 5.1 mmol/L) 4.7 Chloride (98 - 107 mmol/L) 104 Carbon Dioxide (22 - 30 mmol/L) 23 Anion Gap (5 - 16) 10 BUN (7 - 17 mg/dL) 60 H Creatinine (0.5 - 1.0 mg/dL) 2.3 H Estimated GFR (>60 ml/min) 22 L BUN/Creatinine Ratio (7 - 25 %) 26.1 H Phosphorus (2.5 - 4.5 mg/dL) 4.2 Magnesium (1.6 - 2.3 mg/dL) 2.2 Hematology CBC w Diff NO MAN DIFF REQ Cancelled WBC (4.8 - 10.8 /CUMM) 8.5 Cancelled RBC (4.20 - 5.40 /CUMM) 3.10 L Cancelled Hgb (12.0 - 16.0 G/DL) 8.5 L Cancelled Hct (37 - 47 %) 26.8 L Cancelled MCV (81.0 - 99.0 FL) 86.5 Cancelled MCH (27.0 - 31.0 PG) 27.5 Cancelled MCHC (33.0 - 37.0 G/DL) 31.8 L Cancelled RDW (11.5 - 14.5 %) 18.5 H Cancelled Plt Count (130 - 400 /CUMM) 536 H Cancelled MPV (7.4 - 10.4 FL) 8.4 Cancelled Gran % (42.2 - 75.2 %) 73.2 Lymphocytes % (20.5 - 51.1 %) 15.5 L Monocytes % (1.7 - 9.3 %) 9.1 Eosinophils % (0 - 5 %) 2.0 Basophils % (0.0 - 2.0 %) 0.2 Absolute Granulocytes (1.4 - 6.5 /CUMM) 6.2 Absolute Lymphocytes (1.2 - 3.4 /CUMM) 1.3 Absolute Monocytes (0.10 - 0.60 /CUMM) 0.8 H Absolute Eosinophils (0.0 - 0.7 /CUMM) 0.2 Absolute Basophils (0.0 - 0.2 /CUMM) 0 Urines Ur Random Creatinine (mg/dL) 54.6 Ur Random Sodium (30 - 90 mmol/L) 51 Ur Random Potassium (mmol/L) 15.8 Fraction Sodium Excret (<1% %) 1.6 H 08/13 08/13 08/13 1325 1325 0600 Urines Urine Color (YEL,AMB,STR) YEL Urine Clarity (CLEAR) CLEAR Urine pH (5.0 - 8.0) 6.0 Ur Specific [place] (1.001 - 1.035) 1.025 Urine Protein (NEG,<30 MG/DL) 100 H Urine Ketones (NEG) NEG Urine Nitrite (NEG) NEG Urine Bilirubin (NEG) NEG Urine Urobilinogen (0.1 - 1.0 EU/dl) 0.2 Ur Leukocyte Esterase (NEG) TRACE H Ur Microscopic SEDIMENT EXAMINED Urine WBC (0 - 2 /HPF) 10-15 H Ur Epithelial Cells (NONE,FEW) FEW Urine Bacteria (NEG/NONE) FEW H Micro UA Comment [place] H Urine Hemoglobin (NEG) NEG Ur Random Creatinine (mg/dL) 75.7 Cancelled Ur Random Sodium (30 - 90 mmol/L) 21 L Ur Random Potassium (mmol/L) 12.5 Fraction Sodium Excret (<1% %) 0.5 Urine Glucose (N MG/DL) 100 H 08/13 08/12 0545 2230 Chemistry Sodium (137 - 145 mmol/L) 135 L Potassium (3.5 - 5.1 mmol/L) 4.4 Chloride (98 - 107 mmol/L) 101 Carbon Dioxide (22 - 30 mmol/L) 26 Anion Gap (5 - 16) 9 BUN (7 - 17 mg/dL) 60 H Creatinine (0.5 - 1.0 mg/dL) 2.5 H Estimated GFR (>60 ml/min) 20 L Glucose (65 - 99 mg/dL) 200 H Calcium (8.4 - 10.2 mg/dL) 7.3 L Phosphorus (2.5 - 4.5 mg/dL) 4.5 Magnesium (1.6 - 2.3 mg/dL) 2.2 Total Bilirubin (0.2 - 1.3 mg/dL) 0.1 L AST (14 - 36 U/L) 14 ALT (9 - 52 U/L) 27 Albumin (3.5 - 5.0 g/dL) 2.4 L Hematology CBC w Diff NO MAN DIFF REQ NO MAN DIFF REQ WBC (4.8 - 10.8 /CUMM) 8.6 9.5 RBC (4.20 - 5.40 /CUMM) 2.89 L 3.01 L Hgb (12.0 - 16.0 G/DL) 7.9 L 8.1 L Hct (37 - 47 %) 25.1 L 25.7 L MCV (81.0 - 99.0 FL) 86.6 85.4 MCH (27.0 - 31.0 PG) 27.4 27.0 MCHC (33.0 - 37.0 G/DL) 31.6 L 31.6 L RDW (11.5 - 14.5 %) 18.9 H 18.2 H Plt Count (130 - 400 /CUMM) 460 H 440 H MPV (7.4 - 10.4 FL) 8.0 8.5 Gran % (42.2 - 75.2 %) 79.6 H 85.6 H Lymphocytes % (20.5 - 51.1 %) 9.6 L 8.0 L Monocytes % (1.7 - 9.3 %) 10.2 H 6.1 Eosinophils % (0 - 5 %) 0.5 0.3 Basophils % (0.0 - 2.0 %) 0.1 0 Absolute Granulocytes (1.4 - 6.5 /CUMM) 6.9 H 8.1 H Absolute Lymphocytes (1.2 - 3.4 /CUMM) 0.8 L 0.8 L Absolute Monocytes (0.10 - 0.60 /CUMM) 0.9 H 0.6 Absolute Eosinophils (0.0 - 0.7 /CUMM) 0 0 Absolute Basophils (0.0 - 0.2 /CUMM) 0 0 Retic Count (0.5 - 2.0 %) 4.38 H 18 08/12 1334 1201 Chemistry Sodium (137 - 145 mmol/L) 134 L Potassium (3.5 - 5.1 mmol/L) 4.5 Chloride (98 - 107 mmol/L) 100 Carbon Dioxide (22 - 30 mmol/L) 25 Anion Gap (5 - 16) 8 BUN (7 - 17 mg/dL) 55 H Creatinine (0.5 - 1.0 mg/dL) 2.7 H Estimated GFR (>60 ml/min) 18 L Glucose (65 - 99 mg/dL) 188 H Calcium (8.4 - 10.2 mg/dL) 8.1 L Phosphorus (2.5 - 4.5 mg/dL) 5.6 H Magnesium (1.6 - 2.3 mg/dL) 2.2 Total Bilirubin (0.2 - 1.3 mg/dL) 0.2 AST (14 - 36 U/L) 17 ALT (9 - 52 U/L) 34 Albumin (3.5 - 5.0 g/dL) 2.6 L Urines Urine Color Cancelled Urine Clarity Cancelled Urine pH Cancelled Ur Specific [place] Cancelled Urine Protein Cancelled Urine Ketones Cancelled Urine Nitrite Cancelled Urine Bilirubin Cancelled Urine Urobilinogen Cancelled Ur Leukocyte Esterase Cancelled Ur Microscopic Cancelled Urine Hemoglobin Cancelled Urine Glucose Cancelled
--- NOTE | 2017-08-15 09:36 | PN- Housestaff ---
Garydodie,[facility] 08/15/17 0932: Subjective Follow-up For: -Chronic anemia, now with acute blood loss anemia 2/2 GI bleed s/p electrocautery -Hx. of COPD -Hx. of pulmonary HTN -DM -CKD Complaints: no complaints Subjective: I received the sign out today from the ICU team to see Mrs. Vitale. She is seen and examined, sittingin the bed comfortable with no acute distress, she report that she feels her breathing is a little worse today, with productive cough of yellow phlegm. She had a bowel movement today with no blood, she report that for the first time today her bowel movement is brown, which is used to be black. She denies any chest pain, fever, chills, no abdominal pain. Review of Systems Constitutional: Reports: no symptoms. EENTM: Reports: no symptoms. Cardiovascular: Reports: no symptoms. Respiratory: Reports: no symptoms. Gastrointestinal: Reports: no symptoms. Genitourinary: Reports: no symptoms. Musculoskeletal: Reports: no symptoms. Skin: Reports: no symptoms. Neurological/Psychological: Reports: no symptoms. Hematologic/Endocrine: Reports: no symptoms. Immunologic/Allergic: Reports: no symptoms. Objective Last 24 Hrs of Vital Signs/I&O Vital Signs Date Time Temp Pulse Resp B/P B/P Pulse O2 O2 Flow FiO2 Mean Ox Delivery Rate 08/15 0843 Nasal 1.0L Cannula 08/15 0827 73 138/62 08/15 0827 73 138/62 08/15 0827 73 138/62 08/15 0641 99 Nasal 2.0L Cannula 08/15 0634 98.3 73 18 138/62 94 Nasal 2.0L Cannula 08/15 0000 Room Air 08/14 2211 98.5 78 16 152/62 96 Room Air 08/14 2155 78 152/62 08/14 2155 78 152/62 08/14 1900 91 Room Air 08/14 1632 73 142/66 08/14 1513 97.6 73 20 142/66 94 Intake & Output 08/15 1600 08/15 0800 08/15 0000 Intake Total Output Total 600 300 Balance -600 -300 Output, Urine 600 300 Physical Exam General Appearance: Alert, Oriented X3, Cooperative, No Acute Distress Skin: No Rashes, No Breakdown, No Significant Lesion Skin Temp/Moisture Exam: Warm/Dry Sepsis Skin Exam (color): Normal for Ethnicity HEENT: Atraumatic, PERRLA, EOMI, Mucous Membr. moist/pink Neck: Supple, No JVD, No thryomegaly Lymphatic: Axillary nl, Cervical nl Cardiovascular: Regular Rate, Normal S1, Normal S2, No Murmurs Abdomen: Normal Bowel Sounds, Soft, No Tenderness Neurological: Normal Gait, Normal Speech, Strength at 5/5 X4 Ext, Normal Tone, Sensation Intact, Cranial Nerves 3-12 NL Extremities: No Edema, Normal Pulses Vascular: Normal Pulses, Pulses Symmetrical Current Medications: Current Medications Sig/Jannet Start time Last Medication Dose Route Stop Time Status Admin Albuterol Sulfate 3 ML BID 08/14 2199 AC 08/15 INH 0631 Albuterol Sulfate 3 ML Q4P PRN 08/10 2345 AC INH Albuterol Sulfate 3 ML TID 08/10 2200 DC 08/14 INH 0830 Amlodipine Besylate 10 MG DAILY 08/10 1746 08/15 PO 0827 Carvedilol 25 MG BID 08/10 220 08/15 PO 0827 Epoetin Elia 15,000 U Q168 08/13 1015 08/13 ND 1211 Fenofibrate 48 MG DAILY 08/12 1000 08/15 PO 0826 Ferric Sodium 125 MG DAILY 08/13 1007 AC 08/14 Gluconate Complex IV 08/20 1059 1020 Sodium Chloride 100 ML Furosemide 60 MG DAILY 08/13 1055 08/15 PO 0828 Guaifenesin 10 ML Q6PRN PRN 08/10 2115 AC 08/10 PO 2332 Hydralazine HCl 100 MG TID 08/11 1627 AC 08/15 PO 0827 Hydroxyzine HCl 25 MG BID 08/11 220 08/15 PO 0828 Insulin Aspart 0 AT BEDTIME 08/15 220 WA 08/14 ND 2230 Insulin Aspart 0 AT BEDTIME 08/14 2345 SC Insulin Aspart 0 TIDAC 08/12 1200 AC 08/15 SC 0826 Insulin Detemir 14 UNITS AT BEDTIME 08/13 2200 08/14 SC 2156 Nicotine 14 MG DAILY 08/11 1621 08/15 TOP 0829 Omeprazole 40 MG DAILY AC 08/12 0700 AC 08/15 PO 0611 Oxycodone/ 1 TAB Q4P PRN 08/11 1645 AC 08/15 Acetaminophen PO 0828 Pravastatin Sodium 40 MG 1700 08/11 1700 AC 08/14 PO 1631 Racepinephrine 0.5 ML Q4P PRN 08/10 2345 AC 08/10 INH 2343 Trazodone HCl 150 MG QPM 08/11 2200 AC 08/14 PO 2152 Last 24 Hrs of Lab/Olu Results Last 24 Hrs of Labs/Mics: Laboratory Tests 08/14/17 1712: Ur Random Creatinine 54.6, Ur Random Sodium 51, Ur Random Potassium 15.8, Fraction Sodium Excret 1.6 H Assessment/Plan Assessment: Patient is a 61-year-old female with past medical history significant for COPD, dyslipidemia, CHF, Diabetes Mellitus, osteoporosis, chronic iron deficiency anemia, chronic kidney disease,who presented to the hospital with chief complaint of dyspnea, productive cough for the past week. Patient underwent video capsule endoscopy on Tuesday 08/[address] Hdz, which showed active bleeding in the proximal small bowel due to vascular ectasia /arteriovenous malformations and presented to [place] ED with hemoglobin of 6.2.She has been admitted to [facility] for anemia at multiple times At ICU: -She is status post 2 units of PRBC transfusion -Patient underwent Small Bowel Enteroscopy w/ Control of Bleeding and Biopsy on 08/11 with follow-up findings 1. Nodularity of the gastric fundus 2. Prominent atrophic prepyloric folds 3. Jejunal AVM with active bleeding controlled by a BiCAP electrocautery -On the day of admission, the patient received 1 unit of packed RBCs and developed SOB IV methylprednisolone 60 mg and IV Benadryl 25 mg were given. She required TRC therapy along with epinephrine via nebulizer. Chest x-ray report showed pulmonary vascular congestion for which she received IV Lasix 40 mg. Labs were negative for any blood transfusion the reactions. The patient has received a second unit of blood transfusion without any events She is being treated evaluate for following conditions #Acute blood loss anemia likely secondary to Upper GI bleed: Patient presented to [place] ED with hemoglobin of 6.2 s/p video capsule endoscopy on Sunday with Dr. Hdz positive for active bleeding in the proximal small bowel due to vascular ectasia/arteriovenous malformations. Her anemia is multifactorial with GI bleed and stage 4 CKD -Patient is status post endoscopy -H&H stable currently hemodynamically stable. Status post 2 unit of PRBC, today her H&H is 8.3/27.1 -Oral PPIs -Fe gluconate 125 mg IV q day x 8 doses in setting of low iron stores -EPO 15,000 units S/C qwk #Acute on chronic respiratory failure Resolved: likely secondary to systolic heart failure with history of diastolic heart dysfunction; She also has history of mild to moderate COPD currently no significant exacerbation -Patient was initially on BiPAP on first night and has been transitioned to nasal cannula and today to room air -Her respiratory status is stable, she is on room air, she still complain of breathing difficulty but her sat is >92% on RA -Will check CXR today, labs sent for today also -If she becomes somnolent, will do ABGs -Distance Learning Administrator signed off, if any worsening in respiratory status will reconsult #ADDY in setting of stage IV CKD due to DM & HTN, currently stable, seen by dry pan feeder today and no change in the current plan -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 Baseline creatinine 2-1.7 -Her home dose of Lasix resumed as per renal recommendations. #Mild hyponatremia Improving continue to monitor #Hyperkalemia in setting of ADDY resolved on Low K diet #Hyperphosphatemia in setting of ADDY resolved #History of hypertension: -Initially held but now all home medications have been restarted amlodipine, hydralazine and carvedilol #History of hyperlipidemia -Continue statin and fenofibrate #DM: -Accu-Cheks and insulin sliding scale -Initially the patient was nothing by mouth, her Levemir dose was reduced used to 7 units at bedtime. Since patient has been advanced to regular diet. We have resumed her home dose of Levemir at 14 units #History of insomnia -Continue trazodone ALPS for dvt ppx Full code Problem List: 1. Anemia 2. GI bleed 3. COPD (chronic obstructive pulmonary disease) 4. Chronic kidney disease Pain Ratin Pain Location: - Pain Goal: Remain pain free Pain Plan: - Tomorrow's Labs & Rationales: cbc DVT/Prophylaxis: mechanical Jo Ann Sanchez MD 08/15/17 1146: Attending MD Review Statement Attending Statement Attending MD Statement: examined this patient, discuss w/resident/PA/TECHNICAL STENOGRAPHER, agreed w/resident/PA/TECHNICAL STENOGRAPHER, reviewed EMR data (avail), discussed with nursing, discussed with case mgmt, reviewed images Attending Assessment/Plan: Received patient from ICU today. 61-year-old female multiple comorbidities including diabetes, chronic diastolic heart failure, COPD, severe anemia from blood loss and a history of noncompliance. Acute problems were small bowel bleed that was treated endoscopically and patient got transfused. Developed transfusion reaction with likely acute diastolic heart failure from the volume and needed IV Lasix and also developed ADDY on CKD. She is hypoxic on room air at 88% so she continues to have acute hypoxemic respiratory failure with no evidence of acute COPD exacerbation and may be mild acute diastolic heart failure on by mouth Lasix. She is on her Norvasc, her Coreg, Hydralazine, on her EPO and her IV iron and her hemoglobin is stable at 8.5. We need to get physical therapy to ambulate her as I worry that she became very deconditioned from her ICU stay. Her CKD is stable with a creatinine of 2.3. We'll need to talk to pulmonary whether she needs an extra dose of IV Lasix which could help decrease her O2 requirement. And will need to follow-up closely.
--- NOTE | 2017-08-15 14:23 | RADIOLOGY REPORT ---
EXAMINATION: XR PORTABLE CHEST CLINICAL INFORMATION: Productive cough evaluate for pneumonia pleural effusion or cardiopulmonary pathology. COMPARISON: Chest x-ray dated 08/10/2017. TECHNIQUE: Portable frontal view of the chest was obtained. FINDINGS: The patient is positioned in an apical lordotic position. There is no definite blunting the costophrenic angles, however the central pulmonary vasculature is prominent extending to the periphery of both left and right lungs. No focal areas of airspace opacification are noted.. IMPRESSION: Findings consistent with pulmonary vascular congestion without evidence of cynthia pulmonary edema. No focal infiltrate is identified at this time.
[2017-08-15 14:30] LABS: ABSOLUTE BASOPHIL COUNT 0 /CUMM (0.0-0.2); ABSOLUTE EOSINOPHIL COUNT 0.2 /CUMM (0.0-0.7); ABSOLUTE GRANULOCYTE CT 10.2 /CUMM (1.4-6.5); ABSOLUTE LYMPH COUNT 1.2 /CUMM (1.2-3.4); ABSOLUTE MONOCYTE COUNT 0.7 /CUMM (0.10-0.60); BASOPHIL % 0.1 % (0.0-2.0); EOSINOPHIL % 1.9 % (0-5); GRANULOCYTE % 82.7 % (42.2-75.2); HEMATOCRIT 27.1 % (37-47); MEAN CORPUSCULAR HGB 26.6 PG (27.0-31.0); MEAN CORPUSCULAR HGB CONC 30.7 G/DL (33.0-37.0); MEAN CORPUSCULAR VOLUME 86.7 FL (81.0-99.0); PLATELET COUNT 580 /CUMM (130-400); RBC DISTRIBUTION WIDTH 18.7 % (11.5-14.5); RED BLOOD CELL CT 3.13 /CUMM (4.20-5.40); WHITE BLOOD CELL COUNT 12.4 /CUMM (4.8-10.8)
[2017-08-15 14:54] VITALS: BP 138/60
[2017-08-15 22:00] VITALS: BP 162/68
[2017-08-16 06:45] VITALS: BP 160/70
--- NOTE | 2017-08-16 07:44 | PN- Housestaff ---
Dk,[facility] 08/16/17 0743: Subjective Follow-up For: -Chronic anemia, now with acute blood loss anemia 2/2 GI bleed s/p electrocautery -Hx. of COPD -Hx. of pulmonary HTN -DM -CKD Complaints: no complaints Subjective: Patient seen and examined, no acute distress, no events overnight. Vitals stable Review of Systems Constitutional: Reports: no symptoms. Objective Last 24 Hrs of Vital Signs/I&O Vital Signs Date Time Temp Pulse Resp B/P B/P Pulse O2 O2 Flow FiO2 Mean Ox Delivery Rate 08/16 0645 97.6 71 20 160/70 95 Room Air 08/16 0000 Room Air 08/15 2233 82 162/68 08/15 2233 88 162/68 08/15 2200 82 20 162/68 95 Room Air 08/15 1656 95 Room Air 08/15 1644 73 138/60 08/15 1454 98.5 73 20 138/60 93 Room Air 08/15 1151 96 Room Air 08/15 0843 Nasal 1.0L Cannula 08/15 0827 73 138/62 08/15 0827 73 138/62 08/15 0827 73 138/62 Intake & Output 08/16 0800 08/16 0000 08/15 1600 Intake Total 240 480 600 Output Total 500 400 800 Balance -260 80 -200 Intake, Oral 240 480 600 Number 0 Bowel Movements Output, Urine 500 400 800 Physical Exam General Appearance: Alert, Oriented X3, Cooperative, No Acute Distress Cardiovascular: Regular Rate, Normal S1, Normal S2 Lungs: Normal Air Movement Abdomen: Normal Bowel Sounds, Soft, No Tenderness Assessment/Plan Assessment: Patient is a 61-year-old female with past medical history significant for COPD, dyslipidemia, CHF, Diabetes Mellitus, osteoporosis, chronic iron deficiency anemia, chronic kidney disease,who presented to the hospital with chief complaint of dyspnea, productive cough for the past week. Patient underwent video capsule endoscopy on Tuesday 08/[address] Hdz, which showed active bleeding in the proximal small bowel due to vascular ectasia /arteriovenous malformations and presented to [place] ED with hemoglobin of 6.2.She has been admitted to [facility] for anemia at multiple times At ICU: -She is status post 2 units of PRBC transfusion -Patient underwent Small Bowel Enteroscopy w/ Control of Bleeding and Biopsy on 08/11 with follow-up findings 1. Nodularity of the gastric fundus 2. Prominent atrophic prepyloric folds 3. Jejunal AVM with active bleeding controlled by a BiCAP electrocautery -On the day of admission, the patient received 1 unit of packed RBCs and developed SOB IV methylprednisolone 60 mg and IV Benadryl 25 mg were given. She required TRC therapy along with epinephrine via nebulizer. Chest x-ray report showed pulmonary vascular congestion for which she received IV Lasix 40 mg. Labs were negative for any blood transfusion the reactions. The patient has received a second unit of blood transfusion without any events She is being treated evaluate for following conditions #Acute blood loss anemia likely secondary to Upper GI bleed: Patient presented to [place] ED with hemoglobin of 6.2 s/p video capsule endoscopy on Sunday with Dr. Hdz positive for active bleeding in the proximal small bowel due to vascular ectasia/arteriovenous malformations. Her anemia is multifactorial with GI bleed and stage 4 CKD -Patient is status post endoscopy -H&H stable currently hemodynamically stable. Status post 2 unit of PRBC, today her H&H is 8.3/27.1 -Oral PPIs -Fe gluconate 125 mg IV q day x 8 doses in setting of low iron stores -EPO 15,000 units S/C qwk #Acute on chronic respiratory failure Resolved: likely secondary to systolic heart failure with history of diastolic heart dysfunction; She also has history of mild to moderate COPD currently no significant exacerbation -Patient was initially on BiPAP on first night and has been transitioned to nasal cannula and today to room air -Her respiratory status is stable, she is on room air, she still complain of breathing difficulty but her sat is >92% on RA -Will check CXR today, labs sent for today also -If she becomes somnolent, will do ABGs -Surgical Elastic Knitter Hand Frame signed off, if any worsening in respiratory status will reconsult #ADDY in setting of stage IV CKD due to DM & HTN, currently stable, seen by manufacturing plant manager today and no change in the current plan -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 Baseline creatinine 2-1.7 -Her home dose of Lasix resumed as per renal recommendations. #Mild hyponatremia Improving continue to monitor #Hyperkalemia in setting of ADDY resolved on Low K diet #Hyperphosphatemia in setting of ADDY resolved #History of hypertension: -Initially held but now all home medications have been restarted amlodipine, hydralazine and carvedilol #History of hyperlipidemia -Continue statin and fenofibrate #DM: -Accu-Cheks and insulin sliding scale -Initially the patient was nothing by mouth, her Levemir dose was reduced used to 7 units at bedtime. Since patient has been advanced to regular diet. We have resumed her home dose of Levemir at 14 units #History of insomnia -Continue trazodone ALPS for dvt ppx Full code Problem List: 1. COPD (chronic obstructive pulmonary disease) 2. GI bleed Pain Ratin Pain Location: - Pain Goal: Remain pain free (-) Pain Plan: - Tomorrow's Labs & Rationales: - DVT/Prophylaxis: monika Granados MD,[place] 08/16/17 1612: Attending MD Review Statement Attending Statement Attending MD Statement: examined this patient, discuss w/resident/PA/BIOMEDICAL FIELD SERVICE ENGINEER, agreed w/resident/PA/BIOMEDICAL FIELD SERVICE ENGINEER Attending Assessment/Plan: Patient seen and examined. Plan of care discussed with the medical team and the patient. Available lab work and radiology test reports were reviewed. Patient feels much better and denies any new complaints this morning. She has been able to ambulate by herself to the bathroom. Denies any chest pain fever chills nausea vomiting or any further GI bleed. She is currently afebrile with stable vital signs. Room air saturation is 93%. Abdomen soft nontender. Chest exam is clear with overall decreased air entry. Chest exam does not show any history distress. Heart sounds S1 plus S2. Patient refused labs this morning. Assessment plan GI bleed Anemia status post blood transfusion History of COPD History of CHF History osteoporosis Diabetes mellitus Plan Repeat CBC in a.m. Continue oral Lasix Plan for discharge tomorrow
[2017-08-16 14:32] VITALS: BP 145/63
--- NOTE | 2017-08-16 15:17 | Discharge Summary ---
Hospital Course Allergies: Coded Allergies: No Known Allergies (09/01/15) Discharge Instructions Medications at Discharge Discharge Medications: Stop taking the following medications: Pregabalin (Lyrica) 50 MG CAPSULE ORAL THREE TIMES DAILY
[2017-08-16 22:25] VITALS: BP 138/60
[2017-08-17 07:01] VITALS: BP 142/68
[2017-08-17 08:24] VITALS: BP 142/68
--- NOTE | 2017-08-17 08:50 | Patient Discharge Instructions ---
Discharge Instructions General Discharge Information You were seen/treated for: -Lower GI bleed -Acute on chronic kidney injury -Respiratory failure/ resolved Special Instructions: -Follow up with your pcp in 1 week after discharge -Follow up with your white hat hacker after discharge -Follow up with your maintenance scheduler after discharge Acute Coronary Syndrome Inclusion Criteria At DC or during hospital stay patient has or had the following: ACS DIAGNOSIS No Discharge Core Measures Meds if any: Prescribed or Continued at Discharge Meds if any: NOT Prescribed or Continued at Discharge Congestive Heart Failure Inclusion Criteria At DC or during hospital stay patient has or had the following: CHF DIAGNOSIS No Discharge Core Measures Meds if any: Prescribed or Continued at Discharge Meds if any: NOT Prescribed or Continued at Discharge Cerebrovascular accident Inclusion Criteria At DC or during hospital stay patient has or had the following: CVA/TIA Diagnosis No Discharge Core Measures Meds if any: Prescribed or Continued at Discharge Meds if any: NOT Prescribed or Continued at Discharge Venous thromboembolism Inclusion Criteria VTE Diagnosis No VTE Type NONE VTE Confirmed by (Test) NONE Discharge Core Measures - Per Current guidelines, there needs to be overlap - treatment for the first 5 days of Warfarin therapy. - If discharged on Warfarin prior to 5 days of - overlap therapy, the patient will need to be - assessed for post discharge needs including - *Post discharge parental anticoagulation - *Warfarin and/or parental anticoagulation education - *Follow up date to check INR post discharge At least 5 days overlap therapy as Inpatient No Meds if any: Prescribed or Continued at Discharge Note: Overlap Therapy is Warfarin and Anticoagulant Meds if any: NOT Prescribed or Continued at Discharge
--- NOTE | 2017-08-17 08:52 | PN- Housestaff ---
Subjective Follow-up For: -Chronic anemia, now with acute blood loss anemia 2/2 GI bleed s/p electrocautery -Hx. of COPD -Hx. of pulmonary HTN -DM -CKD Complaints: no complaints Subjective: SEEN AND EXAMINED VITALS STABLE NO EVENTS OVERNIGHT SHE IS STABLE Review of Systems Constitutional: Reports: no symptoms. Objective Last 24 Hrs of Vital Signs/I&O Vital Signs Date Time Temp Pulse Resp B/P B/P Pulse O2 O2 Flow FiO2 Mean Ox Delivery Rate 08/17 1021 95 Room Air 08/17 0824 76 142/68 08/17 0823 76 142/68 08/17 0823 76 142/68 08/17 0800 Room Air 08/17 0701 99.1 75 18 142/68 94 Room Air 08/16 2348 Room Air 08/16 2225 99.0 76 16 138/60 95 Room Air 08/16 2214 76 136/70 08/16 2214 76 136/70 08/16 2009 93 Room Air 08/16 1755 78 145/63 08/16 1432 97.1 78 20 145/63 93 Room Air Intake & Output 08/17 1600 08/17 0800 08/17 0000 Intake Total 120 480 Output Total 350 200 Balance -230 280 Intake, Oral 120 480 Number 0 0 Bowel Movements Output, Urine 350 200 Physical Exam General Appearance: Alert Current Medications: Current Medications Sig/Jannet Start time Last Medication Dose Route Stop Time Status Admin Albuterol Sulfate 3 ML BID 08/14 220 AC 08/17 INH 1021 Albuterol Sulfate 3 ML Q4P PRN 08/10 2345 AC INH Amlodipine Besylate 10 MG DAILY 08/10 1746 AC 08/17 PO 0824 Carvedilol 25 MG BID 08/10 2200 AC 08/17 PO 0823 Epoetin Elia 15,000 U Q168 08/13 1015 AC 08/13 SC 1211 Fenofibrate 48 MG DAILY 08/12 1000 AC 08/17 PO 0824 Ferric Sodium 125 MG DAILY 08/13 1007 AC 08/17 Gluconate Complex IV 08/20 1059 1005 Sodium Chloride 100 ML Furosemide 60 MG DAILY 08/13 1055 AC 08/17 PO 0823 Guaifenesin 10 ML Q6PRN PRN 08/10 2115 AC 08/10 PO 2332 Hydralazine HCl 100 MG TID 08/11 1627 AC 08/17 PO 0823 Hydroxyzine HCl 25 MG BID 08/11 2200 AC 08/17 PO 0823 Insulin Aspart 0 AT BEDTIME 08/14 2345 AC SC Insulin Aspart 0 TIDAC 08/12 1200 AC 08/17 SC 0822 Insulin Detemir 14 UNITS AT BEDTIME 08/13 2200 AC 08/16 SC 2213 Nicotine 14 MG DAILY 08/11 1621 AC 08/17 TOP 1005 Omeprazole 40 MG DAILY AC 08/12 0700 AC 08/17 PO 0551 Oxycodone/ 1 TAB Q4P PRN 08/11 1645 AC 08/17 Acetaminophen PO 0839 Pravastatin Sodium 40 MG 1700 08/11 1700 AC 08/16 PO 1755 Racepinephrine 0.5 ML Q4P PRN 08/10 2345 AC 08/10 INH 2343 Trazodone HCl 150 MG QPM 08/11 2200 AC 08/16 PO 2214 Assessment/Plan Assessment: Patient is a 61-year-old female with past medical history significant for COPD, dyslipidemia, CHF, Diabetes Mellitus, osteoporosis, chronic iron deficiency anemia, chronic kidney disease,who presented to the hospital with chief complaint of dyspnea, productive cough for the past week. Patient underwent video capsule endoscopy on Tuesday 08/[address] Hdz, which showed active bleeding in the proximal small bowel due to vascular ectasia /arteriovenous malformations and presented to [place] ED with hemoglobin of 6.2.She has been admitted to [facility] for anemia at multiple times At ICU: -She is status post 2 units of PRBC transfusion -Patient underwent Small Bowel Enteroscopy w/ Control of Bleeding and Biopsy on 08/11 with follow-up findings 1. Nodularity of the gastric fundus 2. Prominent atrophic prepyloric folds 3. Jejunal AVM with active bleeding controlled by a BiCAP electrocautery -On the day of admission, the patient received 1 unit of packed RBCs and developed SOB IV methylprednisolone 60 mg and IV Benadryl 25 mg were given. She required TRC therapy along with epinephrine via nebulizer. Chest x-ray report showed pulmonary vascular congestion for which she received IV Lasix 40 mg. Labs were negative for any blood transfusion the reactions. The patient has received a second unit of blood transfusion without any events She is being treated evaluate for following conditions #Acute blood loss anemia likely secondary to Upper GI bleed: Patient presented to [place] ED with hemoglobin of 6.2 s/p video capsule endoscopy on Sunday with Dr. Hdz positive for active bleeding in the proximal small bowel due to vascular ectasia/arteriovenous malformations. Her anemia is multifactorial with GI bleed and stage 4 CKD -Patient is status post endoscopy -H&H stable currently hemodynamically stable. Status post 2 unit of PRBC, today her H&H is 8.3/27.1 -Oral PPIs -Fe gluconate 125 mg IV q day x 8 doses in setting of low iron stores -EPO 15,000 units S/C qwk #hX. 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 Baseline creatinine 2-1.7 -Her home dose of Lasix resumed as per renal recommendations. #Mild hyponatremia Improving continue to monitor #Hyperkalemia in setting of ADDY resolved on Low K diet #Hyperphosphatemia in setting of ADDY resolved #History of hypertension: -Initially held but now all home medications have been restarted amlodipine, hydralazine and carvedilol #History of hyperlipidemia -Continue statin and fenofibrate #DM: -Accu-Cheks and insulin sliding scale -Initially the patient was nothing by mouth, her Levemir dose was reduced used to 7 units at bedtime. Since patient has been advanced to regular diet. We have resumed her home dose of Levemir at 14 units #History of insomnia -Continue trazodone ALPS for dvt ppx Full code Problem List: 1. GI bleed 2. Chronic kidney disease 3. COPD (chronic obstructive pulmonary disease) Pain Ratin Pain Location: - Pain Goal: Remain pain free (-) Pain Plan: - Tomorrow's Labs & Rationales: - DVT/Prophylaxis: mechanical
[2017-08-17] MEDS ORDERED: LYRICA50 M1 PO (10:35)
--- NOTE | 2017-08-17 11:15 | PN- Att Addend ---
Attending Addendum Attending Brief Note Attending MD Statement: examined this patient, discuss w/resident/PA/RECREATION TECHNICIAN, agreed w/resident/PA/RECREATION TECHNICIAN Attending Assessment/Plan: Patient seen and examined. Plan of care discussed with the medical team and the patient. Available lab work and radiology test reports were reviewed. Patient feels much better and denies any new complaints this morning. She has been able to ambulate by herself to the bathroom. She is lying flat in bed this morning. Denies any chest pain fever chills nausea vomiting or any further GI bleed. She is currently afebrile with stable vital signs. Room air saturation is 95%. Abdomen soft nontender. Chest exam is clear with overall decreased air entry. Chest exam does not show any respiratory distress. Chest exam shows a mild the expiratory wheezing. Heart sounds S1 plus S2. Patient refused labs again this morning. Assessment plan GI bleed Anemia status post blood transfusion History of COPD- mild expiratory wheezing is heard History of CHF History osteoporosis Diabetes mellitus Plan Plan for discharge home today; patient remains a Lasix. Patient recently on August 15 has shown pelvic congestion but overall clinically patient is much improved. Her wheezing perhaps is related to permit congestion and is expected to improve with continued Lasix at home. Clinically patient stable for discharge home.
== END 2017-08-17 12:42 | disposition home health service (06) | DRG 253 ==
LOC: ERH 14:06 → CRI 16:09 → 1NO 16:09 → ERHI 16:09 → EDBEDREQ 17:40 → ENRESERV 17:42 → ENTRNSPT 20:15 → EDTRNSPT 20:32 → CMPTRNSPT 20:39 → CRI 21:12 → 1NO 08-13 23:53 → ENPENDDIS 08-17 10:07 → 1NO 08-17 12:42
PROVIDERS: Internal Medicine; Physician Assistant; Student in an Organized Health Care Education/Training Program
PROC: 0W3P8ZZ Control Bleeding in Gastrointestinal Tract, Via Natural or Artificial Opening Endoscopic (ICD-10-PCS; principal; 2017-08-10)
PROC: 0DB68ZX Excision of Stomach, Via Natural or Artificial Opening Endoscopic, Diagnostic (ICD-10-PCS; principal; 2017-08-10)
PROC: 30233N1 Transfusion of Nonautologous Red Blood Cells into Peripheral Vein, Percutaneous Approach (ICD-10-PCS; 2017-08-10)
PROC: 5A09357 Assistance with Respiratory Ventilation, Less than 24 Consecutive Hours, Continuous Positive Airway Pressure (ICD-10-PCS; 2017-08-11)
DX: K55.21 Angiodysplasia of colon with hemorrhage (principal); J96.21 Acute and chronic respiratory failure with hypoxia; I50.33 Acute on chronic diastolic (congestive) heart failure; I13.0 Hypertensive heart and chronic kidney disease with heart failure and stage 1 through stage 4 chronic kidney disease, or unspecified chronic kidney disease; I27.20 Pulmonary hypertension, unspecified; E11.22 Type 2 diabetes mellitus with diabetic chronic kidney disease; N18.4 Chronic kidney disease, stage 4 (severe); D62 Acute posthemorrhagic anemia; E87.5 Hyperkalemia; E87.1 Hypo-osmolality and hyponatremia; E83.39 Other disorders of phosphorus metabolism; E11.65 Type 2 diabetes mellitus with hyperglycemia; J44.9 Chronic obstructive pulmonary disease, unspecified; B18.2 Chronic viral hepatitis C; G47.33 Obstructive sleep apnea (adult) (pediatric); K21.9 Gastro-esophageal reflux disease without esophagitis; E78.5 Hyperlipidemia, unspecified; M81.0 Age-related osteoporosis without current pathological fracture; D63.1 Anemia in chronic kidney disease; F17.210 Nicotine dependence, cigarettes, uncomplicated; Z79.4 Long term (current) use of insulin
CPT/HCPCS: 1NSP; 84133; 84300; CCU; 36415; 36592; 71045; 71046; 81001; 82436; 82570; 86920; 87040; 87070; 87086; 87804; 87804-59; 88305; 88312; 93005; 93010; 99291; J0610; J0885-EC; J1200; J1610; J1815; J1940; J2270; J2920; J2930; P9016

== ENCOUNTER 2017-09-22 14:34 | Inpatient (IN) | payer OTHER ==
[~2017-09-22] VITALS: Ht 154.9 cm; Wt 77.8 kg
[~2017-09-22 14:34] MED LIST changes: +LYRICA50 M1 PO
[2017-09-22 15:13] LABS: HEMATOCRIT 20.6 % (37-47); MEAN CORPUSCULAR HGB 22.3 PG (27.0-31.0); MEAN CORPUSCULAR VOLUME 76.9 FL (81.0-99.0); MEAN PLATELET VOLUME 7.5 FL (7.4-10.4); PLATELET COUNT 382 /CUMM (130-400); RBC DISTRIBUTION WIDTH 22.5 % (11.5-14.5); RED BLOOD CELL CT 2.67 /CUMM (4.20-5.40); WHITE BLOOD CELL COUNT 6.1 /CUMM (4.8-10.8)
[2017-09-22 15:22] LABS: PT 12.8 SEC (9.4-12.5)
--- NOTE | 2017-09-22 15:22 | ED DYSPNEA/ASTHMA COMPLAINT ---
History of Present Illness General Chief Complaint: General Adult Stated Complaint: PER MD ABNORMAL LABS Source: patient, old records Exam Limitations: no limitations Vital Signs & Intake/Output Vital Signs & Intake/Output Vital Signs Date Time Temp Pulse Resp B/P B/P Pulse O2 O2 Flow FiO2 Mean Ox Delivery Rate 09/26 08 71 180/80 09/26 0822 71 180/80 09/26 0800 92 Nasal 2.0L Cannula 09/26 0609 66 182/94 09/26 0600 98.0 67 18 182/94 90 09/26 0000 Nasal 2.0L Cannula 09/25 2145 77 138/54 09/25 2145 75 138/54 09/25 1850 78 Room Air 09/25 1700 76 168/60 09/25 1600 Nasal 2.0L Cannula 09/25 1544 98.8 72 20 152/58 92 ED Intake and Output 09/26 0000 09/25 1200 Intake Total 1555 Output Total 700 600 Balance 855 -600 Intake, Blood 350 Product Intake, IV 125 Intake, Oral 1080 Number 0 Bowel Movements Output, Urine 700 600 Patient 172 lb Weight Allergies Coded Allergies: No Known Allergies (09/01/15) Triage Note: PT STATES HER DOCTOR (DR PLASENCIA) CALLED HER YESTERDAY TO TELL HER TO GO TO THER ER RIGHT AWAY. PT STATES "HE SAID MY BLOOD WAS DANGEROUSLY LOW" PT STATES SHE DID NOT COME YESTERDAY BECAUSE SHE WAS TO WEAK. PT RIGHT EYE SWOLLEN AND PT STATES IT THE WAY SHE SLEEPS. PT ALSO C/O SOB AND 86%RA AND PLACED ON 2L NC 93% SAT ON 2L PT IS VERY DROWSY PT HAS HX OF ANEMIA AND MULTIPLE BLOOD INFUSIONS Triage Nurses Notes Reviewed? yes Onset: Abrupt Duration: week(s): (1), changing over time, continues in ED, getting worse Timing: recent history Severity: moderate, severe Activities at Onset: activity Prior Episodes/Possible Cause: frequent episodes LMP (ages 10-50): post menopausal, unknown : No Patient currently breastfeeds: No HPI: 61-year-old female past medical history of CHF, COPD, chronic anemia, GI bleed, chronic kidney disease, diabetes and hypertension presents for evaluation of shortness of breath, weakness, fatigue and dizziness. Patient reports that symptoms have been going on for more than a week now and getting worse. She reports shortness of breath that is worse on exertion she also reports feeling very weak and fatigued. Patient was admitted here a little more than a month ago for similar symptoms and found to have a GI bleed. She currently denies any melena, bright red blood per rectum, fever, hemoptysis, chest pain. No new medications. She is a current smoker. (Raheel IRVIN,Gil) Reconcile Medications Albuterol Sulfate (Proair Hfa) 90 MCG HFA.AER.AD 2 PUF INH Q4 BREATHING PROBLEMS Albuterol Sulfate 2.5 MG/3 ML (0.083 %) VIAL.NEB 3 ML INH Q4-6 PRN PRN SHORTNESS OF BREATH . Amlodipine Besylate (Norvasc) 10 MG TABLET 10 MG PO DAILY blood pressure .. Aspirin (Ecotrin*) 81 MG TABLET.DR 1 TAB PO DAILY HEART HEALTH Carvedilol 25 MG TABLET 25 MG PO BID blood pressure .. Epoetin Elia (Procrit) (Unknown Strength) VIAL (Unknown Dose) QTUES ANEMIA ( Reported) Fenofibrate (Tricor) 48 MG TABLET 1 TAB PO DAILY CHOLESTEROL Ferrous Sulfate 325 MG (65 MG IRON) TABLET.DR 325 MG PO BID Iron Def Anemia take 1 tab twice a day. Fluticasone/Salmeterol (Advair 250-50 Diskus) 250 MCG-50 MCG/DOSE BLST.W.DEV 1 PUF INH BID BREATHING PROBLEMS Furosemide (Lasix) 40 MG TABLET 1.5 TAB PO DAILY WATER RETENTION Hydralazine HCl 100 MG TABLET 1 TAB PO TID BLOOD PRESSURE take 1 tab three times a day.. Hydroxyzine Hydrochloride (Atarax) 25 MG TABLET 1 TAB PO BID UNKNOWN ( Reported) Insulin Aspart (Novolog) 100 UNIT/ML VIAL 0 UNITS SC TIDAC diabetes sugar unit <150 0 151-200 4 201-250 6 251-300 8 301-350 10 351-400 12 >400 14, call Insulin Detemir (Levemir) 100 UNIT/ML VIAL 24 UNITS SC QHS DM (Reported) Mirtazapine (Unknown Strength) TABLET (Unknown Dose) UNKNOWN (Reported) Oxycodone HCl/Acetaminophen (Percocet 7.5-325 MG Tablet) 7.5 MG-325 MG TABLET 1 TAB PO 4 TIMES/DAY PRN PAIN (Reported) Pantoprazole Sodium (Protonix) 40 MG TABLET.DR 1 TAB PO DAILY ACID REFLUX Pravastatin Sodium (Pravachol) 40 MG TABLET 1 TAB PO DAILY CHOLESTEROL Pregabalin (Lyrica) 50 MG CAPSULE 1 CAP PO TID PAIN (Reported) Trazodone HCl 150 MG TABLET 1 TAB PO QPM SLEEP (Reported) (Aby WILLIAMSON,[place]) Past History Travel History Traveled to [place] past 21 day No Medical History Any Pertinent Medical History? see below for history Neurological: NONE EENT: cataracts Cardiovascular: CHF, hypertension, hyperlipidemia Respiratory: COPD, pneumonia Gastrointestinal: GERD, iron deficiency anemia chronic, intermittent diarrhea Hepatic: cholecystitis, hepatitis C Renal: chronic kidney disease Musculoskeletal: falls, osteoporosis Psychiatric: NONE Endocrine: diabetes Blood Disorders: anemia Cancer(s): NONE COIL FORMER/Reproductive: NONE History of MRSA: No History of VRE: No History of CDIFF: No Surgical History Surgical History: appendectomy, cholecystectomy, CATARACTS Psychosocial History Who do you live with Son Services at Home [facility] What is your primary language Swazi Tobacco Use: Current Daily Use Daily Tobacco Use Amount/Type: => 5 Cigarettes daily Family History Family History, If Any: MOTHER FH: diabetes mellitus Hx Contributory? No (Gil Galloway) Review of Systems Review of Systems Constitutional: Reports: malaise, weakness. EENTM: Reports: no symptoms. Respiratory: Reports: see HPI, short of breath. Cardiovascular: Reports: no symptoms. GI: Reports: no symptoms. Genitourinary: Reports: no symptoms. Musculoskeletal: Reports: no symptoms. Skin: Reports: no symptoms. Neurological/Psychological: Reports: see HPI, weakness. Hematologic/Endocrine: Reports: no symptoms. Immunologic/Allergic: Reports: no symptoms. All Other Systems: Reviewed and Negative (Gil Galloway) Physical Exam Physical Exam General Appearance: well developed/nourished, no apparent distress, alert, awake Head: atraumatic, normal appearance Eyes: Left: normal appearance. Right: other (periorbital edema). Bilateral: PERRL, EOMI, pale conjunctivae. Ears, Nose, Throat: normal pharynx, normal ENT inspection, hearing grossly normal Neck: normal inspection, supple, full range of motion Respiratory: chest non-tender, no respiratory distress, quiet respiration, decreased breath sounds Cardiovascular: regular rate/rhythm, normal peripheral pulses Peripheral Pulses: 2+ radial (R), 2+ radial (L) Gastrointestinal: soft, non-tender Rectal: normal rectal tone, heme positive stool, light brown stool heme positive. no gross blood Extremities: normal inspection, normal range of motion, no edema Neurologic/Psych: no motor/sensory deficits, awake, alert, oriented x 3, normal gait Skin: intact, normal color, warm/dry Lymphatic: no anterior cervical [place] Core Measures ACS in differential dx? No CVA/TIA Diagnosis No Sepsis Present: No Sepsis Focused Exam Completed? No (Gil Galloway) Progress Differential Diagnosis: asthma, AMI, bronchitis, CHF, COPD, pulmonary embolism, pneumonia, unstable angina, GI bleeding, symptomatic anemia, CHF exacerbation, COPD exacerbation Plan of Care: Orders Procedure Date/time Status Discharge Patient 09/26 UNK Active Anticipated Discharge 09/26 UNK Active OXYGEN 09/25 UNK Complete OXYGEN DAILY CHARGE 09/25 UNK Complete Anticipated Discharge 09/25 UNK Active Current Medications Sig/Jannet Start time Last Medication Dose Stop Time Status Admin Sodium Chloride 2 SPRAY Q4P PRN 09/25 1900 AC 09/25 (Nasal) 2146 Ferrous Sulfate 325 MG BID 09/24 2200 AC 09/26 (Feosol) 0823 Insulin Aspart 0 TIDAC 09/24 1700 AC 09/25 (NovoLOG) 1225 Insulin Detemir 5 UNITS DAILY 09/24 1000 AC 09/26 (Levemir) 0830 Pravastatin Sodium 40 MG 1700 09/23 1700 AC 09/25 (Pravachol) 1657 Nicotine 14 MG DAILY 09/23 1635 AC 09/25 (Nicotine Cq) 0926 Albuterol Sulfate 3 ML Q4-PRN PRN 09/23 1430 AC (Proventil) Amlodipine Besylate 10 MG DAILY 09/23 1000 AC 09/26 (Norvasc) 0823 Omeprazole 40 MG DAILY AC 09/23 0700 AC 09/26 (Prilosec) 0558 Oxycodone/ 1 TAB Q6P PRN 09/23 0130 AC 09/25 Acetaminophen 1909 (Percocet) Budesonide/ 2 PUF BID 09/23 0100 AC 09/26 Formoterol Fumarate 0923 (Symbicort) Hydralazine HCl 100 MG TID 09/23 0100 AC 09/26 (Apresoline) 0609 Carvedilol 25 MG BID 09/22 2200 AC 09/26 (Coreg) 0822 Hydroxyzine HCl 25 MG BID 09/22 2199 AC 09/26 (Atarax) 0822 Trazodone HCl 100 MG AT BEDTIME 09/22 2199 AC 09/25 (Desyrel) 2142 Laboratory Tests 09/26/17 0615: Anion Gap 10, Estimated GFR 26 L, BUN/Creatinine Ratio 16.5, CBC w Diff NO MAN DIFF REQ, RBC 3.68 L, MCV 81.6, MCH 25.6 L, MCHC 31.4 L, RDW 21.5 H, MPV 8.6 , Gran % 76.0 H, Lymphocytes % 11.4 L, Monocytes % 9.8 H, Eosinophils % 2.8, Basophils % 0, Absolute Granulocytes 6.1, Absolute Lymphocytes 0.9 L, Absolute Monocytes 0.8 H, Absolute Eosinophils 0.2, Absolute Basophils 0 Patient seen and evaluated. She is reporting weakness fatigue and shortness of breath. On initial evaluation she is hypoxic to 86%. Lung sounds reveal diminished breath sounds bilaterally. She was started on oxygen 2 L nasal cannula with good effect she is satting in the mid 90s at rest on 2 L. Patient' s rectal exam is positive for occult blood. No gross blood. Her hemoglobin is currently at 6 she normally runs in the 8s. Troponin is negative she denies any chest pain. No hemoptysis. Chest x-ray does not show any pulmonary edema but does show some central vascular congestion. Patient will be given a transfusion of 2 units packed red blood cells. A transfusion be given slowly due to history of CHF. Patient may require diuresis in between units. spoke with gi regarding possible bleeding they recommend admission for serial labs, consult. pt will be admitted to [facility] for slow tranfusion, diaphoresis, GI consult, cardiology consult, serial EKGs, DuoNeb's, serial H&H's, serial cardiac enzymes. Case discussed with Dr. Badillo she agrees. Considered the possibility of PE however patient is not tachycardic no unilateral lower extremity edema. No chest pain. Patient has a history of chronic kidney disease and connective a CTA. Diagnostic Imaging: Viewed by Me: Radiology Read. Discussed w/RAD: Radiology Read. CXR Impression: PATIENT: ORLIN FERNANDEZ PRESENT AGE: 61 PATIENT ACCOUNT NO: [id number] : 59 LOCATION: [facility] ORDERING PHYSICIAN: Gil IRVIN SERVICE DATE: 09/22/178335 EXAM TYPE: RAD - XRY-PORTABLE CHEST XRAY EXAMINATION: XR PORTABLE CHEST CLINICAL INFORMATION: Hypoxia. Weakness. Presumptive diagnosis of pneumonia and CHF. COMPARISON: Several prior chest x-rays, most recent of which is dated 08/15/2017. TECHNIQUE: Portable AP semierect view of the chest was obtained. FINDINGS: EKG leads overlie the chest. The cardiomediastinal silhouette is enlarged. There is persistent central vascular congestion, perhaps slightly worsened when compared to the prior exam. Bibasilar linear opacities are also seen, consistent with subsegmental atelectasis. No significant effusion or pneumothorax is seen. No dense consolidation is noted. Bony structures are grossly unremarkable. IMPRESSION: 1. Enlarged cardiac silhouette and slightly progressive central vascular congestion. No overt pulmonary edema. 2. Mild bibasilar subsegmental atelectasis. DICTATED BY: Monica Meier MD DATE/TIME DICTATED:09/22/171550 AMBULATORY TECHNOLOGIST:NIKI DATE/TIME TRANSCRIBED:09/22/171550 CONFIDENTIAL, DO NOT COPY WITHOUT APPROPRIATE AUTHORIZATION. Initial ED EKG: normal sinus rhythm, no ST T wave changes Prior EKG: unchanged (Gil Galloway) Departure Departure Disposition: STILL A PATIENT Condition: Stable Clinical Impression Primary Impression: Symptomatic anemia Secondary Impressions: GI bleeding Qualifiers: GI bleed type/associated pathology: unspecified gastrointestinal hemorrhage type Qualified Code: K92.2 - Gastrointestinal hemorrhage, unspecified Hypoxia Referrals: Eduardo Beavers MD (PCP/Family) Departure Forms: Customer Survey General Discharge Information Admission Note Spoke With: Garcia Bright MD Documentation of Exam: Documentation of any treatments & extenuating circumstances including Concerns Regarding Discharge (functional status, medication knowledge or non-compliance, living conditions, etc.) that warrant an admission rather than observation: [ Slow transfusion, diuresis, telemetry, cardiology, GI, serial labs, serial EKGs, oxygen supplementation, DuoNeb's] (Gil Galloway) Departure Prescriptions: Current Visit Scripts Ferrous Sulfate 325 MG PO BID #60 TAB take 1 tab twice a day. PA/SALT PLANT OPERATOR Co-Sign Statement Statement: ED Attending supervision documentation- [X] I saw and evaluated the patient. I have also reviewed all the pertinent lab results and diagnostic results. I agree with the findings and the plan of care as documented in the PA's/SALT PLANT OPERATOR's documentation. [X] I have reviewed the ED Record and agree with the PA's/SALT PLANT OPERATOR's documentation. [] Additions or exceptions (if any) to the PAs/SALT PLANT OPERATOR's note and plan are summarized below: [] (Aby WILLIAMSON,[place]) Critical Care Note Critical Care Note Critical Care Time: 30-74 min (Raheel IRVIN,Gil)
[2017-09-22 15:23] LABS: PTT 31 SEC (25-37)
--- NOTE | 2017-09-22 15:57 | RADIOLOGY REPORT ---
EXAMINATION: XR PORTABLE CHEST CLINICAL INFORMATION: Hypoxia. Weakness. Presumptive diagnosis of pneumonia and CHF. COMPARISON: Several prior chest x-rays, most recent of which is dated 08/15/2017. TECHNIQUE: Portable AP semierect view of the chest was obtained. FINDINGS: EKG leads overlie the chest. The cardiomediastinal silhouette is enlarged. There is persistent central vascular congestion, perhaps slightly worsened when compared to the prior exam. Bibasilar linear opacities are also seen, consistent with subsegmental atelectasis. No significant effusion or pneumothorax is seen. No dense consolidation is noted. Bony structures are grossly unremarkable. IMPRESSION: 1. Enlarged cardiac silhouette and slightly progressive central vascular congestion. No overt pulmonary edema. 2. Mild bibasilar subsegmental atelectasis.
[2017-09-22] MEDS ORDERED: PROCRIT20000 UNIT (16:25)
[2017-09-22] MEDS ORDERED: LEVEMIR100 UNIT/1 SC (16:26)
[2017-09-22] MEDS ORDERED: MIRTAZAPINE7.5 M1 (16:28)
--- NOTE | 2017-09-22 21:08 | History & Physical ---
Florentino Portillo MD 09/22/179: General Information and HPI MD Statement: I have seen and personally examined ORLIN FERNANDEZ and documented this H&P. The patient is a 61 year old F who presented with a patient stated chief complaint of low blood count. Source of Information: patient, old records Exam Limitations: no limitations History of Present Illness: 61 year old female with past medical history significant for COPD, HLD, HFpEF, DM, osteoporosis, iron deficiency anemia, CKD Stage 4 recently admitted for GI bleed and anemia underwent negative colonoscopy and video capsule endoscopy with Dr. Hdz (08/08/17), which showed active bleeding in the proximal small bowel due to vascular ectasia/arteriovenous malformations. The patient was approximately five weeks ago for similar issues, requiring two units pRBC transfusion and intravenous iron. The patient was also carefully diuresed for some dyspnea and presumably congestive heart failure in the setting of chronic renal insufficiency. She was discharged home without any changes in her medications. The patient had some outpatient blood work done for an appointment with Dr. Natarajan three days ago that she missed because she had multiple episodes of nonbloody, nonmelanotic diarrhea and complaints of fatigue that day. The patient states prior to that it was typical for her to have melanotic diarrhea constantly but that had resolved after her prior admission and treatment with Dr. Hdz. The patient also reports two days of extreme weakness , fatigue and feeling lightheaded. She constantly feels cold, has arthritic pain in her left hip and shoulder that she takes percocet for, and has some exertional dyspnea but states that is chronic and she attributes to smoking ( 1ppd). She denied any other symptoms in review of systems including: fevers, chills, upper respiratory infection, productive cough, chest pain, palpitations, abdominal pain, nausea, vomiting, hematemesis, melena, hematochezia, hematuria or dysuria. Allergies/Medications Allergies: Coded Allergies: No Known Allergies (09/01/15) Home Med list Albuterol Sulfate (Proair Hfa) 90 MCG HFA.AER.AD 2 PUF INH Q4 BREATHING PROBLEMS Albuterol Sulfate 2.5 MG/3 ML (0.083 %) VIAL.NEB 3 ML INH Q4-6 PRN PRN SHORTNESS OF BREATH . Amlodipine Besylate (Norvasc) 10 MG TABLET 10 MG PO DAILY blood pressure .. Aspirin (Ecotrin*) 81 MG TABLET.DR 1 TAB PO DAILY HEART HEALTH Carvedilol 25 MG TABLET 25 MG PO BID blood pressure .. Epoetin Elia (Procrit) (Unknown Strength) VIAL (Unknown Dose) QTUES ANEMIA ( Reported) Fenofibrate (Tricor) 48 MG TABLET 1 TAB PO DAILY CHOLESTEROL Ferrous Sulfate 325 MG (65 MG IRON) TABLET.DR 325 MG PO DAILY supplement take 1 tab twice a day. Fluticasone/Salmeterol (Advair 250-50 Diskus) 250 MCG-50 MCG/DOSE BLST.W.DEV 1 PUF INH BID BREATHING PROBLEMS Furosemide (Lasix) 40 MG TABLET 1.5 TAB PO DAILY WATER RETENTION Hydralazine HCl 100 MG TABLET 1 TAB PO TID BLOOD PRESSURE take 1 tab three times a day.. Hydroxyzine Hydrochloride (Atarax) 25 MG TABLET 1 TAB PO BID UNKNOWN ( Reported) Insulin Aspart (Novolog) 100 UNIT/ML VIAL 0 UNITS SC TIDAC diabetes sugar unit <150 0 151-200 4 201-250 6 251-300 8 301-350 10 351-400 12 >400 14, call Insulin Detemir (Levemir) 100 UNIT/ML VIAL 24 UNITS SC QHS DM (Reported) Mirtazapine (Unknown Strength) TABLET (Unknown Dose) UNKNOWN (Reported) Oxycodone HCl/Acetaminophen (Percocet 7.5-325 MG Tablet) 7.5 MG-325 MG TABLET 1 TAB PO 4 TIMES/DAY PRN PAIN (Reported) Pantoprazole Sodium (Protonix) 40 MG TABLET.DR 1 TAB PO DAILY ACID REFLUX Pravastatin Sodium (Pravachol) 40 MG TABLET 1 TAB PO DAILY CHOLESTEROL Pregabalin (Lyrica) 50 MG CAPSULE 1 CAP PO TID PAIN (Reported) Trazodone HCl 150 MG TABLET 1 TAB PO QPM SLEEP (Reported) Compliance With Home Meds: GOOD Past History Travel History Traveled to [place] past 21 day No Medical History Neurological: NONE EENT: cataracts Cardiovascular: CHF, hypertension, hyperlipidemia Respiratory: COPD, pneumonia Gastrointestinal: GERD, iron deficiency anemia chronic, intermittent diarrhea Hepatic: cholecystitis, hepatitis C Renal: chronic kidney disease Musculoskeletal: falls, osteoporosis Psychiatric: NONE Endocrine: diabetes Blood Disorders: anemia Cancer(s): NONE [employer]/Reproductive: NONE History of MRSA: No History of VRE: No History of CDIFF: No Surgical History Surgical History: appendectomy, cholecystectomy, CATARACTS Past Family/Social History Family History Relations & Conditions if any MOTHER FH: diabetes mellitus Psychosocial History Services at Home: [facility] Functional Ability ADLs Independent: dressing, eating, toileting, bathing. Ambulation: independent, cane Review of Systems Review of Systems Constitutional: Reports: malaise. Denies: chills, diaphoresis, fever. EENTM: Reports: no symptoms. Cardiovascular: Reports: peripheral edema. Denies: chest pain, palpitations. Respiratory: Reports: cough, short of breath. Denies: sputum production. GI: Reports: diarrhea. Denies: abdominal pain, constipation, melena, nausea, vomiting. Genitourinary: Reports: no symptoms. Musculoskeletal: Reports: joint pain (left hip). Skin: Reports: no symptoms. Neurological/Psychological: Reports: no symptoms. Hematologic/Endocrine: Reports: no symptoms. Immunologic/Allergic: Reports: no symptoms. All Other Systems: Reviewed and Negative Exam & Diagnostic Data Last 24 Hrs of Vital Signs/I&O Vital Signs Date Time Temp Pulse Resp B/P B/P Pulse O2 O2 Flow FiO2 Mean Ox Delivery Rate 09/22 2150 Nasal 2.0L Cannula 09/22 1936 97.8 74 18 184/86 97 Nasal 2.0L Cannula 09/22 1805 97.8 82 20 176/84 96 Nasal 2.0L Cannula 09/22 1730 97.8 80 18 182/84 96 Nasal 2.0L Cannula 09/22 1700 97.8 82 20 168/80 96 Nasal 2.0L Cannula 09/22 1630 97.8 74 20 174/80 97 Nasal 2.0L Cannula 09/22 1615 97.9 68 18 172/80 99 Nasal 2.0L Cannula 09/22 1511 95 Nasal 2.0L Cannula 09/22 1443 97.5 71 24 100/63 86 Room Air Intake & Output 09/22 1600 09/22 0800 09/22 0000 Intake Total Output Total Balance Patient 79.832 kg Weight Physical Exam General Appearance Alert, Oriented X3, Cooperative, No Acute Distress, obese Cardiovascular Regular Rate, Normal S1, Normal S2, No Murmurs Lungs Clear to Auscultation, Normal Air Movement Abdomen Normal Bowel Sounds, Soft, No Tenderness, No Masses Extremities No Clubbing, No Cyanosis, Normal Pulses, 2+ bilateral lower extremity pitting edema Last 24 Hrs of Labs/Olu: Laboratory Tests 09/22/17 1746: Lactic Acid Cancelled 09/22/17 1615: Urine Color YEL, Urine Clarity CLEAR, Urine pH 6.0, Ur Specific [place] 1.020, Urine Protein 100 H, Urine Ketones NEG, Urine Nitrite NEG, Urine Bilirubin NEG, Urine Urobilinogen 0.2, Ur Leukocyte Esterase NEG, Ur Microscopic SEDIMENT EXAMINED, Urine RBC RARE, Urine WBC RARE, Ur Epithelial Cells RARE, Urine Hemoglobin NEG, Urine Glucose NEG 09/22/17 1505: Lactic Acid 1.3 09/22/17 1505: Anion Gap 8, Estimated GFR 29 L, BUN/Creatinine Ratio 12.2, Glucose 126 H, Calcium 7.8 L, Total Bilirubin 0.2, AST 12 L, ALT 14, Alkaline Phosphatase 39, Troponin I < 0.01, [id number] Pept 2310 H, Total Protein 5.9 L, Albumin 3.0 L, Globulin 2.9, Albumin/Globulin Ratio 1.0 L, PT 12.8 H, INR 1.17, APTT 31, CBC w Diff MAN DIFF ORDERED, RBC 2.67 L, MCV 76.9 L, MCH 22.3 L, MCHC 29.0 L, RDW 22.5 H, MPV 7.5, Segmented Neutrophils 82 H, Lymphocytes 6 L, Monocytes 7, Eosinophils 3, Basophils 2, Nucleated RBCs 1 H, Platelet Estimate ADEQUATE, Polychromasia 1+, Hypochromic-Microcytic 2+, Poikilocytosis 1+, Anisocytosis 2+, Microcytic Cells 1+, Ovalocytes FEW, Elliptocytes FEW, Schistocytes RARE Diagnostic Data EKG Results sinus rhythm HR 70s CXR Results The cardiomediastinal silhouette is enlarged. There is persistent central vascular congestion, perhaps slightly worsened when compared to the prior exam. Bibasilar linear opacities are also seen, consistent with subsegmental atelectasis. No significant effusion or pneumothorax is seen. No dense consolidation is noted. Other Results echo 06/10 Moderate concentric left ventricular hypertrophy. Normal left ventricular ejection fraction visually estimated at >65 Normal left ventricular diastolic filling pattern for age. Mild left atrial dilatation. Mild thickening/calcification of the mitral valve leaflets. Moderate mitral annular calcification. Mild mitral regurgitation. Focal thickening of the aortic valve cusps. No aortic stenosis. No aortic regurgitation. Right ventricular systolic pressure estimated to be mildly elevated at 35-40 mmHg. The aortic arch and great vessels are not well seen. Assessment/Plan Assessment: 61 year old female with past medical history significant for COPD, HLD, HFpEF, DM, iron deficiency anemia, CKD Stage recently admitted for GI bleed and anemia underwent negative colonoscopy and video capsule endoscopy on 08/08/[address] Hdz, which showed active bleeding in the proximal small bowel due to vascular ectasia/arteriovenous malformations presents with symptomatic anemia. Symptomatic anemia secondary to acute blood loss anemia likely GI bleed Good peripheral access Hemoglobin 8.3-8.5 on discharge 08/15/17 6.0 on presentation Transfused 1 unit pack red cells in the ED Denies signs of active bleed, hematochezia or melena History of jejunal AVM treated with cautery by Dr. Hdz one month ago Repeat CBC GI consultation in the AM Monitor for heart failure with blood transfusion and volume resuscitation Iron deficiency anemia (chronic): MCV low, continue iron supplementation Continue epogen GI bleed: IV PPI BID Gastroenterology consultation CKD Stage 4: Creatinine 1.8 today Previously worse Avoid nephrotoxic agents Trend renal function HFpEF: Continue carvedilol and lasix Echocardiogram 05/2017 LVEF >65%, moderate concentric LVH, mildly elevated RVSP HTN: Continue carvedilol, lasix, norvasc, and hydralazine HLD: Continue statin COPD: Hypoxic on presentation, 86% on room air TRC evaluation Continue symbicort and duonebs with albuterol and ipatropium Smoking cessation, nicotine patch if cravings DM: Diabetic diet Accuchecks TIDAC/HS Novolog sliding scale insulin Reduce levemir while NPO IV PPI NPO for now pending gastroenterology evaluation DVT ppx-heparin 5000 units subcutaneous q8h Full code As Ranked By This Provider Problem List: 1. Anemia 2. GI bleed 3. Symptomatic anemia Core Measures/Misc (03/11) Acute Coronary Syndrome ACS Diagnosis: No Congestive Heart Failure Congestive Heart Failure Diagnosis No Cerebrovascular Accident CVA/TIA Diagnosis: No VTE (View Protocol) VTE Risk Factors Age>40 No Mechanical VTE Prophylaxis d/t N/A MechProphylax Ordered No VTE Pharm Prophylaxis d/t NA PharmProphylax ordered Sepsis (View protocol) Sepsis Present: No Martha WILLIAMSON,Ismail 03/31/18 2221: Resident Review Statement Resident Statement: examined this patient, discussed with regulatory internship, agreed with regulatory internship, reviewed EMR data (avail), discussed with nursing Other Findings: 61 year old female with a PMH significant for COPD no home oxygen, CKD, CHF, HLD , HTN, osteoporesis, IDDM, hepatitis c s/p Harvoni in 2012, chronic lower extremity edema for 1.5 years, smoker, chronic diarrhea since cholecystectomy in 2014, that was sent because of low H&H. The patient was recently discharged from [facility] (08/17/17), during that admission she was found to have upper GI bleed that confirmed to be due to vascular ectasia jejunum and AVM s/p Electrocautery. She was symptom-free since she was discharged on August 17 until last Sunday when she started to complain of dizziness, one day of multiple brown nonbloody diarrhea, and worsening lower extremity edema. The patient denies any other current active complaints. She still smoke 1 pack of cigarettes per day, denies alcohol, denies any recreational drug, use cane to ambulate at baseline. On admission: Vitals: Afebrile, RR 20, heartrate 70s-80, blood pressure 180s/80s , and saturating over 92 L oxygen. Chest x-ray: Cardiomegaly, no pulmonary edema, mild subsegmental atelectasis. Significant labs:H&H 6&20, no leukocytosis, creatinine 1.8(at baseline), BNP 2300. Physical Exam: HEENT within normal limits, CVS regular, normal S1/S2, with 2/6 systolic murmur best heard over the apex. Resp decreased air entry with mild crackles over lung base bilaterally. Abdominal soft, not distended, without tenderness X Q4 Assessment: There is no sign or symptom of active GI bleeding, however given recent history of upper GI bleed, AVM Electrocautery, and presented with low H&H while on aspirin she will need to be admitted for further workup. Patient ultimately received one packed RBCs while in the ED. patient doesn't seem to be in CHF exacerbation given low BNP, no pulmonary edema, and no pleural effusion. However she requires blood transfusion and has bilateral lower extremity edema and currently required 2 L of oxygen. COPD exacerbation also likely given no wheezing and good air entry except at lung bases bilaterally. Plan #Acute on chronic microcytic anemia * Admit to telemetry * Nothing by mouth midnight * CBC posttransfusion, target hemoglobin is 7 * Continue PPI * Guaiac stool * Hold aspirin and avoid NSAIDs * We will consult GI #HFpEF * Continue home dose of Lasix starting tomorrow * 1 extra dose of IV 40 mg Lasix tonight #COPD * TRC/nebs as needed * Continue home Symbicort * Continue home albuterol * Nicotine patch #IDDM * Fingerstick glucose level * Continue home Levemir * Insulin SS * Diabetic diet until midnight #HTN * Continue home dose of hydralazine 100 mg 3 times a day * Continue home dose of amlodipine 10 mg daily * Continue home dose of carvedilol #GERD * PPI -Diabetic diet until midnight and nothing by mouth -DVT prophylaxis with Alps only given possible active GI bleed -Full code Kaila WILLIAMSON,Garcia 09/22/17 2248: Attending MD Review Statement Attending Statement Attending MD Statement: examined this patient, discuss w/resident/PA/[employer], agreed w/resident/PA/[employer], reviewed EMR data (avail) Attending Assessment/Plan: Ms. Fernandez is a 61 y/o female who lives with son and daughter in law, has a h/o recent vascular ectasia jejunum and AVM s/p Electrocautery on 08/17/[address] Hdz, heart failure with preserved ejection fraction on Lasix at home, dyslipidemia hypertension, osteoporosis, insulin-dependent diabetes mellitus, hepatitis C status post treatment, chronic lower extremity edema ex-smoker chronic diarrhea is being sent to the ER by the primary care physician as she was found to have a low hemoglobin and hematocrit. Currently patient denies any specific symptoms, wants to get discharged, apparently was told that she could go home after getting a unit of blood transfusion. On examination, patient is hypertensive, BP 180/80, saturating 94% on 2 liters of oxygen, afebrile, heart rate of 80's. Patient is alert oriented 3, head, ear, nose, throat within normal limits, cardiovascular examination within normal limits, bilateral decreased air entry with occasional rales in the bases, abdomen, soft, non tender, no focal neurological deficits on examination Assessment 1. Acute on chronic blood loss anemia with h/o recent jejunal bleeding 2. Heart Failure with preserved ejection fraction 3. Insulin Dependent Diabetes Mellitus 4. CKD stage III 5. COPD - not on home oxygen Plan Keep NPO after midnight until seen by Gastroenterology. S/p 1 unit of PRBC in the ER for a Hb of 6. Repeat CBC and monitor in am. Hold aspirin. Continue with Iron supplements, patient has not been taking at home. Gastroenterology will be consulted Continue with home dose of oral Lasix, patient has increasing lower extremity edema, so will give 1 dose of IV Lasix 40 mg tonight. Continue with other home COPD medications. ALPS for DVT prophylaxis
[2017-09-22 22:30] LABS: HEMATOCRIT 23.3 % (37-47); MEAN CORPUSCULAR HGB 23.7 PG (27.0-31.0); MEAN CORPUSCULAR HGB CONC 30.2 G/DL (33.0-37.0); MEAN CORPUSCULAR VOLUME 78.6 FL (81.0-99.0); MEAN PLATELET VOLUME 7.5 FL (7.4-10.4); PLATELET COUNT 369 /CUMM (130-400); RBC DISTRIBUTION WIDTH 21.4 % (11.5-14.5); RED BLOOD CELL CT 2.96 /CUMM (4.20-5.40); WHITE BLOOD CELL COUNT 6.8 /CUMM (4.8-10.8)
[2017-09-22 23:02] VITALS: BP 158/110
[2017-09-23 06:57] VITALS: BP 170/62
[2017-09-23 08:32] LABS: HEMATOCRIT 21.6 % (37-47); MEAN CORPUSCULAR HGB 23.1 PG (27.0-31.0); MEAN CORPUSCULAR HGB CONC 29.6 G/DL (33.0-37.0); MEAN CORPUSCULAR VOLUME 77.9 FL (81.0-99.0); MEAN PLATELET VOLUME 8.9 FL (7.4-10.4); PLATELET COUNT 320 /CUMM (130-400); RBC DISTRIBUTION WIDTH 21.8 % (11.5-14.5); RED BLOOD CELL CT 2.77 /CUMM (4.20-5.40); WHITE BLOOD CELL COUNT 7.5 /CUMM (4.8-10.8)
--- NOTE | 2017-09-23 09:41 | PN- Housestaff ---
Migdalia Covarrubias Riaz Portillo 09/23/17 0939: Subjective Follow-up For: #Acute on chronic blood loss anemia with h/o recent jejunal bleeding #Heart Failure with preserved ejection fraction #Insulin Dependent Diabetes Mellitus #CKD stage III #COPD - not on home oxygen Tele-Events Since Last Visit: NSR 70-80s Subjective: Patient was s/p 1U PRBC, however per nursing staff report patient's Hgb dropped below 7 again this AM. Patient was frustrated about not being able to go home today, and about not able to eat on a regular diet. Otherwise no specific complaint. Review of Systems Constitutional: Reports: see HPI. Objective Last 24 Hrs of Vital Signs/I&O Vital Signs Date Time Temp Pulse Resp B/P B/P Pulse O2 O2 Flow FiO2 Mean Ox Delivery Rate 09/23 08 94 Nasal 2.0L Cannula 09/23 0657 98.7 72 20 170/62 95 09/23 0128 74 158/110 09/23 0128 74 158/110 09/23 0000 Nasal 2.0L Cannula 09/22 2302 98.9 74 18 158/110 94 09/22 2150 Nasal 2.0L Cannula 09/22 1936 97.8 74 18 184/86 97 Nasal 2.0L Cannula 09/22 1805 97.8 82 20 176/84 96 Nasal 2.0L Cannula 09/22 1730 97.8 80 18 182/84 96 Nasal 2.0L Cannula 09/22 1700 97.8 82 20 168/80 96 Nasal 2.0L Cannula 09/22 1630 97.8 74 20 174/80 97 Nasal 2.0L Cannula 09/22 1615 97.9 68 18 172/80 99 Nasal 2.0L Cannula 09/22 1511 95 Nasal 2.0L Cannula 09/22 1443 97.5 71 24 100/63 86 Room Air Intake & Output 09/23 1600 09/23 0800 09/23 0000 Intake Total 110 500 Output Total Balance 110 500 Intake, Blood 350 Product Intake, IV 10 150 Intake, Oral 100 Patient 82.27 kg Weight Weight Reported by Patient Measurement Method Physical Exam General Appearance: Alert, Oriented X3, Cooperative, No Acute Distress Cardiovascular: Regular Rate Lungs: Clear to Auscultation, Normal Air Movement Abdomen: Normal Bowel Sounds, Soft, No Tenderness Neurological: Normal Speech Current Medications: Current Medications Sig/Jannet Start time Last Medication Dose Route Stop Time Status Admin Albuterol Sulfate 3 ML ONCE ONE 09/22 1615 DC INH 09/22 1616 Amlodipine Besylate 10 MG DAILY 09/23 1000 AC PO Budesonide/ 2 PUF BID 09/23 0100 AC 09/23 Formoterol Fumarate INH 0129 Carvedilol 25 MG BID 09/22 2200 AC 09/23 PO 0128 Furosemide 60 MG DAILY 09/23 1000 AC PO Furosemide 40 MG ONCE ONE 09/22 2215 DC 09/22 IV 09/22 2216 2219 Hydralazine HCl 100 MG TID 09/23 0100 AC 09/23 PO 0128 Hydroxyzine HCl 25 MG BID 09/22 2200 AC 09/23 PO 0130 Insulin Aspart 0 TIDAC 09/23 0800 AC SC Insulin Detemir 5 UNITS ONCE ONE 09/23 0415 DC SC 09/23 0416 Insulin Detemir 10 UNITS ONCE ONE 09/23 0400 CAN SC 09/23 0401 Insulin Detemir 24 UNITS .[QHS] 09/22 2130 CAN SC Insulin Human Regular 0 Q6 09/23 0600 AC SC Ipratropium Armstrong 2.5 ML ONCE ONE 09/22 1615 DC INH 09/22 1616 Omeprazole 40 MG DAILY AC 09/23 0700 AC 09/23 PO 0543 Oxycodone/ 1 TAB Q6P PRN 09/23 0130 AC 09/23 Acetaminophen PO 0623 Pravastatin Sodium 40 MG 1700 09/23 1700 AC PO Trazodone HCl 100 MG AT BEDTIME 09/22 2200 AC 09/23 PO 0129 Last 24 Hrs of Lab/Olu Results Last 24 Hrs of Labs/Mics: Laboratory Tests 09/23/17 0640: Anion Gap 8, Estimated GFR 29 L, BUN/Creatinine Ratio 12.8, CBC w Diff MAN DIFF ORDERED, WBC Pending, RBC Pending, Hgb Pending, Hct Pending, MCV Pending, MCH Pending, MCHC Pending, RDW Pending, Plt Count Pending, MPV Pending, Segmented Neutrophils Pending 09/22/170: CBC w Diff MAN DIFF ORDERED, RBC 2.96 L, MCV 78.6 L, MCH 23.7 L, MCHC 30.2 L , RDW 21.4 H, MPV 7.5, Segmented Neutrophils 71, Band Neutrophils 1, Lymphocytes 16 L, Monocytes 9, Eosinophils 2, Basophils 1, Platelet Estimate ADEQUATE, Polychromasia 1+, Hypochromic-Microcytic 1+, Anisocytosis 1+, Microcytic Cells 1+ 09/22/17 2202: Troponin I Cancelled 09/22/17 1746: Lactic Acid Cancelled 09/22/17 1615: Urine Color YEL, Urine Clarity CLEAR, Urine pH 6.0, Ur Specific Bath 1.020, Urine Protein 100 H, Urine Ketones NEG, Urine Nitrite NEG, Urine Bilirubin NEG, Urine Urobilinogen 0.2, Ur Leukocyte Esterase NEG, Ur Microscopic SEDIMENT EXAMINED, Urine RBC RARE, Urine WBC RARE, Ur Epithelial Cells RARE, Urine Hemoglobin NEG, Urine Glucose NEG 09/22/17 1505: Lactic Acid 1.3 09/22/17 1505: Anion Gap 8, Estimated GFR 29 L, BUN/Creatinine Ratio 12.2, Glucose 126 H, Calcium 7.8 L, Total Bilirubin 0.2, AST 12 L, ALT 14, Alkaline Phosphatase 39, Troponin I < 0.01, Yju-Y-Wniyxnihfnu Pept 2310 H, Total Protein 5.9 L, Albumin 3.0 L, Globulin 2.9, Albumin/Globulin Ratio 1.0 L, PT 12.8 H, INR 1.17, APTT 31, CBC w Diff MAN DIFF ORDERED, RBC 2.67 L, MCV 76.9 L, MCH 22.3 L, MCHC 29.0 L, RDW 22.5 H, MPV 7.5, Segmented Neutrophils 82 H, Lymphocytes 6 L, Monocytes 7, Eosinophils 3, Basophils 2, Nucleated RBCs 1 H, Platelet Estimate ADEQUATE, Polychromasia 1+, Hypochromic-Microcytic 2+, Poikilocytosis 1+, Anisocytosis 2+, Microcytic Cells 1+, Ovalocytes FEW, Elliptocytes FEW, Schistocytes RARE Assessment/Plan Assessment: Mrs. Vitale is a 61 year old female with past medical history significant for COPD, HLD, HFpEF, DM, iron deficiency anemia, CKD Stage recently admitted for GI bleed and anemia underwent negative colonoscopy and video capsule endoscopy on with Dr. Hdz, which showed active bleeding in the proximal small bowel due to vascular ectasia/arteriovenous malformations presents with symptomatic anemia. Symptomatic anemia secondary to acute blood loss anemia likely GI bleed Good peripheral access Hemoglobin 8.3-8.5 on discharge 08/15/17 6.0 on presentation, s/p 1U, increased to 7.0 however decreased to 6.4 this morning again - Will transfuse 1U PRBC, recheck CBC in the PM. - Denied signs of active bleed, hematochezia or melena - Pending GI consultation in the AM. History of jejunal AVM treated with cautery by Dr. Hdz one month ago. Not likely to have active procedure on sunday. Now on heart healthy diet. - Monitor for heart failure with blood transfusion and volume resuscitation Iron deficiency anemia (chronic): - MCV low, continue iron supplementation - Continue epogen GI bleed: - IV PPI BID - GI consult as above CKD Stage 4: Creatinine 1.8 today Previously worse Avoid nephrotoxic agents Trend renal function HFpEF: Continue carvedilol and lasix Echocardiogram 05/2017 LVEF >65%, moderate concentric LVH, mildly elevated RVSP HTN: Continue carvedilol, lasix, norvasc, and hydralazine HLD: Continue statin COPD: Hypoxic on presentation, 86% on room air, now bumped up to 4LNC, likely in combination of previous hx of CHF and current anemia. Will repeat CXR for CHF exacerbation if needed. TRC evaluation Continue symbicort and duonebs with albuterol and ipatropium Smoking cessation, nicotine patch if cravings DM: Diabetic diet Accuchecks TIDAC/HS Novolog sliding scale insulin Reduce levemir while NPO IV PPI heart healthy diet DVT ppx-heparin 5000 units subcutaneous q8h Full code Problem List: 1. GI bleed 2. Hypoxia Pain Ratin Pain Location: NA Pain Goal: Remain pain free Pain Plan: see AP Tomorrow's Labs & Rationales: CBC/BEP Daniel WILLIAMSON,Jo Ann 09/23/17 1215: Attending MD Review Statement Attending Statement Attending MD Statement: examined this patient, discuss w/resident/PA/MERCHANDISE EXAMINER, agreed w/resident/PA/MERCHANDISE EXAMINER, reviewed EMR data (avail), discussed with nursing, discussed with case mgmt, reviewed images Attending Assessment/Plan: 61-year-old female multiple medical problems including diabetes, CKD, refractory hypertension in the past, chronic symptomatic anemia and heart failure likely pulmonary hypertension and right heart failure. She was recently evaluated for this chronic refractory anemia with the pill capsule endoscopy and was found to have small bowel AVMs. She is here with acute on chronic anemia and a hemoglobin of 6 last evening. She was transfused 1 unit of the hemoglobin transiently went up to 7 but it's back to 6 now. She was also treated for acute on chronic heart failure likely pulmonary hypertension and right heart failure with 1 dose of IV Lasix and we have her on her by mouth Lasix 60 mg a day. We have continued her antihypertensives but her pressure has been refractory and will need to watch that. GI is going to see her but this is going to be a tough situation given the nature of the small bowel AVM and the chronic anemia. I'm going to advance her diet and feed her as I don't think there is any procedure planned for now and watch her kidney function and watch her hemoglobin closely.
--- NOTE | 2017-09-23 12:14 | Admission Certification ---
Admission Certification Certification Statement - As attending physician, I certify that at the time of - admission, based on clinical presentation, severity of - symptoms, need for further diagnostic testing and - therapeutic interventions, and risk of adverse outcomes - without in-hospital treatment, in my clinical assessment, - this patient requires an acute hospital stay for a minimum - of two nights or longer. I have also considered psychsocial - factors such as support system, advanced age, financial - issues, cognitive issues, and failed out-patient treatments, - past re-admission history, safety of patient, and lack of - compliance as applicable. Specific rationale supporting this admission is: Severe anemia in patient with known small bowel vascular ectasia,
--- NOTE | 2017-09-23 13:37 | Cons- Gastroenterology ---
General Information and HPI Consulting Request Date of Consult: 09/23/17 Requested By: Garcia Bright MD Reason for Consult: GI bleed Source of Information: patient, old records Exam Limitations: no limitations History of Present Illness: Unfortunately 61-year-old lady with known small bowel AVMs and previous attempts at BiPAP electrocautery who presents again with dropping hematocrit. Patient of Dr. Livan Hdz's and is well known to this practice. She has been admitted to [facility] for anemia at least 4 times and has been seen most recently in July 2017 when she underwent an enteroscopy with BiPAP electrocautery of AVMs. Video capsule endoscopy in the office has previously shown active bleeding in the proximal small bowel due to vascular ectasia/arteriovenous malformations. She had a colonoscopy September by Dr. Livan Hdz for evaluation of anemia which was unremarkable. Subsequently, she had [address] Fred Hdz, the last on February 08, 2017. The first EGD showed a stomach full of blood which precluded adequate evaluation. A second upper endoscopy showed atrophic gastric mucosa with no explanation for the bleeding that had been noted previously. She has past medical history significant for COPD, dyslipidemia, CHF, Diabetes Mellitus, osteoporosis, chronic iron deficiency anemia, chronic kidney disease. The patient reports two days of extreme weakness, fatigue and feeling lightheaded. She constantly feels cold, has arthritic pain in her left hip and shoulder that she takes percocet for, and has some exertional dyspnea but states that is chronic and she attributes to smoking (1ppd). She denied any other symptoms in review of systems including: fevers, chills, upper respiratory infection, productive cough, chest pain, palpitations, abdominal pain, nausea, vomiting, hematemesis, melena, hematochezia, hematuria or dysuria. 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 1. Nodularity of the gastric fundus 2. Prominent atrophic prepyloric folds 3. Jejunal AVM with active bleeding controlled by a BiCAP electrocautery Allergies/Medications Allergies: Coded Allergies: No Known Allergies (09/01/15) Home Med List: Albuterol Sulfate (Proair Hfa) 90 MCG HFA.AER.AD 2 PUF INH Q4 BREATHING PROBLEMS Albuterol Sulfate 2.5 MG/3 ML (0.083 %) VIAL.NEB 3 ML INH Q4-6 PRN PRN SHORTNESS OF BREATH . Amlodipine Besylate (Norvasc) 10 MG TABLET 10 MG PO DAILY blood pressure .. Aspirin (Ecotrin*) 81 MG TABLET. 1 TAB PO DAILY HEART HEALTH Carvedilol 25 MG TABLET 25 MG PO BID blood pressure .. Epoetin Elia (Procrit) (Unknown Strength) VIAL (Unknown Dose) QTUES ANEMIA ( Reported) Fenofibrate (Tricor) 48 MG TABLET 1 TAB PO DAILY CHOLESTEROL Ferrous Sulfate 325 MG (65 MG IRON) TABLET.DR 325 MG PO DAILY supplement take 1 tab twice a day. Fluticasone/Salmeterol (Advair 250-50 Diskus) 250 MCG-50 MCG/DOSE BLST.W.DEV 1 PUF INH BID BREATHING PROBLEMS Furosemide (Lasix) 40 MG TABLET 1.5 TAB PO DAILY WATER RETENTION Hydralazine HCl 100 MG TABLET 1 TAB PO TID BLOOD PRESSURE take 1 tab three times a day.. Hydroxyzine Hydrochloride (Atarax) 25 MG TABLET 1 TAB PO BID UNKNOWN ( Reported) Insulin Aspart (Novolog) 100 UNIT/ML VIAL 0 UNITS SC TIDAC diabetes sugar unit <150 0 151-200 4 201-250 6 251-300 8 301-350 10 351-400 12 >400 14, call Insulin Detemir (Levemir) 100 UNIT/ML VIAL 24 UNITS SC QHS DM (Reported) Mirtazapine (Unknown Strength) TABLET (Unknown Dose) UNKNOWN (Reported) Oxycodone HCl/Acetaminophen (Percocet 7.5-325 MG Tablet) 7.5 MG-325 MG TABLET 1 TAB PO 4 TIMES/DAY PRN PAIN (Reported) Pantoprazole Sodium (Protonix) 40 MG TABLET. 1 TAB PO DAILY ACID REFLUX Pravastatin Sodium (Pravachol) 40 MG TABLET 1 TAB PO DAILY CHOLESTEROL Pregabalin (Lyrica) 50 MG CAPSULE 1 CAP PO TID PAIN (Reported) Trazodone HCl 150 MG TABLET 1 TAB PO QPM SLEEP (Reported) Past History Travel History Traveled to [place] past 21 day No Medical History Blood Transfusion Hx: Yes Type of Reaction: Shortness of Breath Neurological: NONE EENT: cataracts Cardiovascular: CHF, hypertension, hyperlipidemia Respiratory: COPD, pneumonia Gastrointestinal: GERD, iron deficiency anemia chronic, intermittent diarrhea Hepatic: cholecystitis, hepatitis C Renal: chronic kidney disease Musculoskeletal: falls, osteoporosis Psychiatric: NONE Endocrine: diabetes Blood Disorders: anemia Cancer(s): NONE 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 Home Services at Home: [facility] Smoking Status: Current Everyday Smoker Functional Ability ADLs Independent: dressing, eating, toileting, bathing. Ambulation: independent, cane Review of Systems Review of Systems: Review of Systems Constitutional: Reports: malaise. Denies: chills, diaphoresis, fever. EENTM: Reports: no symptoms. Cardiovascular: Reports: peripheral edema. Denies: chest pain, palpitations. Respiratory: Reports: cough, short of breath. Denies: sputum production. GI: Reports: diarrhea. Denies: abdominal pain, constipation, melena, nausea, vomiting. Genitourinary: Reports: no symptoms. Musculoskeletal: Reports: joint pain (left hip). Skin: Reports: no symptoms. Neurological/Psychological: Reports: no symptoms. Hematologic/Endocrine: Reports: no symptoms. Immunologic/Allergic: Reports: no symptoms. All Other Systems: Reviewed and Negative Exam & Diagnostic Data Vital Signs and I&O Physical Exam General Appearance Alert, Oriented X3, Cooperative, No Acute Distress, obese Cardiovascular Regular Rate, Normal S1, Normal S2, No Murmurs Lungs Clear to Auscultation, Normal Air Movement Abdomen Normal Bowel Sounds, Soft, No Tenderness, No Masses Extremities No Clubbing, No Cyanosis, Normal Pulses, 2+ bilateral lower extremity pitting edema Vital Signs Date Time Temp Pulse Resp B/P B/P Pulse O2 O2 Flow FiO2 Mean Ox Delivery Rate 09/23 0853 72 170/62 09/23 0800 94 Nasal 2.0L Cannula 09/23 0657 98.7 72 20 170/62 95 09/23 0128 74 158/110 09/23 0128 74 158/110 09/23 0000 Nasal 2.0L Cannula 09/22 2302 98.9 74 18 158/110 94 09/22 2150 Nasal 2.0L Cannula 09/22 1936 97.8 74 18 184/86 97 Nasal 2.0L Cannula 09/22 1805 97.8 82 20 176/84 96 Nasal 2.0L Cannula 09/22 1730 97.8 80 18 182/84 96 Nasal 2.0L Cannula 09/22 1700 97.8 82 20 168/80 96 Nasal 2.0L Cannula 09/22 1630 97.8 74 20 174/80 97 Nasal 2.0L Cannula 09/22 1615 97.9 68 18 172/80 99 Nasal 2.0L Cannula 09/22 1511 95 Nasal 2.0L Cannula 09/22 1443 97.5 71 24 100/63 86 Room Air Intake & Output 09/23 1600 09/23 0400 09/22 1600 09/22 0400 09/21 1600 09/21 0400 Intake Total 110 500 Output Total Balance 110 500 Intake, Blood 350 Product Intake, IV 10 150 Intake, Oral 100 Patient 181 lb 176 lb Weight Weight Reported by Patient Measurement Method Assessment/Plan Assessment/Recommendations: 61-year-old lady with known small bowel AVMs who underwent enteroscopy and electrocautery just a few weeks ago is presenting again with a drop in hemoglobin. Unclear if the patient is rebleeding from the same site or from another source. Will leave decision for further intervention with Dr. Hdz who is returning tomorrow. He may choose to perform another enteroscopy to identify if the same source is bleeding. Patient is already receiving transfusion. Please keep hemoglobin above 7. Patient can eat today. Nothing by mouth from midnight. Continue PPIs. Consult Acknowledgment - Thank you for your consult request.
[2017-09-23 14:18] VITALS: BP 148/66
[2017-09-23 19:21] LABS: HEMATOCRIT 24.7 % (37-47); MEAN CORPUSCULAR HGB CONC 30.3 G/DL (33.0-37.0); MEAN CORPUSCULAR VOLUME 79.4 FL (81.0-99.0); MEAN PLATELET VOLUME 8.6 FL (7.4-10.4); PLATELET COUNT 339 /CUMM (130-400); RBC DISTRIBUTION WIDTH 21.6 % (11.5-14.5); RED BLOOD CELL CT 3.11 /CUMM (4.20-5.40); WHITE BLOOD CELL COUNT 7.6 /CUMM (4.8-10.8)
[2017-09-23 20:27] VITALS: BP 132/58
[2017-09-24] VITALS: BP 132/60
[2017-09-24 06:33] VITALS: BP 154/74
--- NOTE | 2017-09-24 07:17 | PN- Housestaff ---
Migdalia Covarrubias Riaz Portillo 09/24/17 0717: Subjective Follow-up For: #Acute on chronic blood loss anemia with h/o recent jejunal bleeding #Heart Failure with preserved ejection fraction #Insulin Dependent Diabetes Mellitus #CKD stage III #COPD - not on home oxygen Tele-Events Since Last Visit: NSR Subjective: No overnight event. Patient is resting comfortably on 5L. No specific compalint. Per nursing staff, no active bleeding event overnight. Being NPO overnight for possible procedure today. Review of Systems Constitutional: Reports: see HPI. Objective Last 24 Hrs of Vital Signs/I&O Vital Signs Date Time Temp Pulse Resp B/P B/P Pulse O2 O2 Flow FiO2 Mean Ox Delivery Rate 09/24 0633 98.1 74 20 154/74 91 Nasal 5.0L Cannula 09/24 0000 98.7 94 20 132/60 92 Nasal Cannula 09/23 2026 95 Nasal 4.0L Cannula 09/23 2026 98.1 73 16 132/58 95 Nasal 4.0L Cannula 09/23 202 73 132/58 09/23 202 73 132/58 09/23 1706 72 142/70 09/23 1600 Nasal 4.0L Cannula 09/23 1432 Nasal 2.0L Cannula 09/23 1418 98.5 72 20 148/66 93 Nasal 4.0L Cannula 09/23 0953 72 170/62 Physical Exam General Appearance: Alert, Oriented X3, Cooperative, No Acute Distress Cardiovascular: Regular Rate Lungs: Clear to Auscultation, Normal Air Movement Current Medications: Current Medications Sig/Jannet Start time Last Medication Dose Route Stop Time Status Admin Albuterol Sulfate 3 ML Q4-PRN PRN 09/23 1430 AC INH Amlodipine Besylate 10 MG DAILY 09/23 1000 AC 09/23 PO 0955 Budesonide/ 2 PUF BID 09/23 0100 AC 09/23 Formoterol Fumarate INH 2020 Carvedilol 25 MG BID 09/22 2199 AC 09/23 PO 2021 Dextrose/Sodium 1,000 ML Q13H 09/24 0000 CAN Chloride IV Furosemide 60 MG DAILY 09/23 1000 AC 09/23 PO 0953 Hydralazine HCl 100 MG TID 09/23 0100 AC 09/23 PO 2021 Hydroxyzine HCl 25 MG BID 09/22 2200 AC 09/23 PO 2020 Insulin Aspart 0 TIDAC 09/23 0800 DC 09/23 SC 1723 Insulin Detemir 5 UNITS DAILY 09/24 1000 CAN SC Insulin Detemir 5 UNITS DAILY 09/24 1000 AC SC Insulin Detemir 4 UNITS QPM 09/23 2200 CAN SC Insulin Human Regular 0 Q6 09/24 0051 AC SC Insulin Human Regular 0 Q6 09/23 2359 CAN SC Insulin Human Regular 0 Q6 09/23 0600 DC SC Nicotine 14 MG DAILY 09/23 1635 AC 09/23 TOP 1706 Omeprazole 40 MG DAILY AC 09/23 0700 AC 09/23 PO 0543 Oxycodone/ 1 TAB Q6P PRN 09/23 0130 AC 09/23 Acetaminophen PO 2022 Pravastatin Sodium 40 MG 1700 09/23 1700 AC 09/23 PO 170 Trazodone HCl 100 MG AT BEDTIME 09/22 220 AC 09/23 PO 2020 Last 24 Hrs of Lab/Olu Results Last 24 Hrs of Labs/Mics: Laboratory Tests 09/24/17 0627: Anion Gap 8, Estimated GFR 26 L, BUN/Creatinine Ratio 13.5, CBC w Diff MAN DIFF ORDERED, WBC Pending, RBC Pending, Hgb Pending, Hct Pending, MCV Pending, MCH Pending, MCHC Pending, RDW Pending, Plt Count Pending, MPV Pending, Segmented Neutrophils Pending 09/23/178: CBC w Diff MAN DIFF ORDERED, RBC 3.11 L, MCV 79.4 L, MCH 24.0 L, MCHC 30.3 L , RDW 21.6 H, MPV 8.6, Segmented Neutrophils 75, Lymphocytes 13 L, Monocytes 9 , Eosinophils 1, Basophils 2, Nucleated RBCs 1 H, Platelet Estimate VERIFIED BY SMEAR, Polychromasia 1+, Hypochromic-Microcytic 1+, Poikilocytosis 1+, Anisocytosis 2+, Ovalocytes FEW, Melanie Cells RARE, Fld Total RBCs Counted 100 Assessment/Plan Assessment: Mrs. Vitale is a 61 year old female with past medical history significant for COPD, HLD, HFpEF, DM, iron deficiency anemia, CKD Stage recently admitted for GI bleed and anemia underwent negative colonoscopy and video capsule endoscopy on with Dr. Hdz, which showed active bleeding in the proximal small bowel due to vascular ectasia/arteriovenous malformations presents with symptomatic anemia. Symptomatic anemia secondary to acute blood loss anemia likely GI bleed Good peripheral access Hemoglobin 8.3-8.5 on discharge 08/15/17 6.0 on presentation, s/p 1U, increased to 7.0 however decreased to 6.4, and received another 1U on 09/23, now 7.5 on latest lab. - Denied signs of active bleed, hematochezia or melena - Pending GI consultation in the AM. History of jejunal AVM treated with cautery by Dr. Hdz one month ago. Not likely to have active procedure on sunday. Now on heart healthy diet. - Monitor for heart failure with blood transfusion and volume resuscitation Iron deficiency anemia (chronic): - MCV low, continue iron supplementation - Continue epogen GI bleed: - IV PPI BID - GI consult as above CKD Stage 4: Creatinine 1.8 on latest lab Previously worse Avoid nephrotoxic agents Trend renal function HFpEF: Continue carvedilol and lasix Echocardiogram 05/2017 LVEF >65%, moderate concentric LVH, mildly elevated RVSP HTN: Continue carvedilol, lasix, norvasc, and hydralazine HLD: Continue statin COPD: Hypoxic on presentation, 86% on room air, now bumped up to 4LNC, likely in combination of previous hx of CHF and current anemia. Will repeat CXR for CHF exacerbation if needed. TRC evaluation Continue symbicort and duonebs with albuterol and ipatropium Smoking cessation, nicotine patch if cravings DM: Diabetic diet Accuchecks TIDAC/HS Novolog sliding scale insulin Reduce levemir while NPO IV PPI NPO DVT ppx-heparin 5000 units subcutaneous q8h Full code Problem List: 1. GI bleed Pain Ratin Pain Location: NA Pain Goal: Remain pain free Pain Plan: see AP Tomorrow's Labs & Rationales: CBC WalkerYaima 09/24/17 1200: Attending MD Review Statement Attending Statement Attending MD Statement: examined this patient, discuss w/resident/PA/FLORICULTURIST, agreed w/resident/PA/FLORICULTURIST, discussed with family, reviewed EMR data (avail), discussed with nursing, discussed with case mgmt, reviewed images, amended to note Attending Assessment/Plan: 61-year-old female multiple medical problems including diabetes, CKD, refractory hypertension in the past, chronic symptomatic anemia and heart failure likely pulmonary hypertension and right heart failure. She was recently evaluated for this chronic refractory anemia with the pill capsule endoscopy and was found to have small bowel AVMs. She is here with acute on chronic anemia. She was transfused 2 units of PRBC. She was also treated for acute on chronic heart failure likely pulmonary hypertension and right heart failure with 1 dose of IV Lasix and she needs repeat iv lasix dose today 2/2 increased oxygen requirements. Follow up GI recommendations. Monitor creatinine which appears to be baseline.
[2017-09-24 07:46] LABS: HEMATOCRIT 24.9 % (37-47); MEAN CORPUSCULAR HGB 24.2 PG (27.0-31.0); MEAN CORPUSCULAR HGB CONC 30.4 G/DL (33.0-37.0); MEAN CORPUSCULAR VOLUME 79.5 FL (81.0-99.0); MEAN PLATELET VOLUME 8.7 FL (7.4-10.4); PLATELET COUNT 334 /CUMM (130-400); RBC DISTRIBUTION WIDTH 22.1 % (11.5-14.5); RED BLOOD CELL CT 3.13 /CUMM (4.20-5.40); WHITE BLOOD CELL COUNT 7.1 /CUMM (4.8-10.8)
--- NOTE | 2017-09-24 10:18 | RADIOLOGY REPORT ---
EXAMINATION: XR PORTABLE CHEST CLINICAL INFORMATION: Increasing oxygen requirement COMPARISON: Chest x-rays most recent prior dated 09/22/2017 TECHNIQUE: Portable frontal view of the chest was obtained. FINDINGS: Cardiomegaly. Central pulmonary vascular congestion. Hazy interstitial edema. Small pleural effusion, left greater than right with associated hazy infiltrate or atelectasis. Increasing hazy groundglass attenuation left lower lung. IMPRESSION: Cardiomegaly, vascular congestion and interstitial edema. Slight interval increase compared to the prior examination Bilateral effusions, left greater than right with associated hazy infiltrate or atelectasis.
--- NOTE | 2017-09-24 14:11 | Proc Note Endoscopy ---
Endoscopy Procedure Medical History: unchanged (see [facility] consult) Mental Status: alert/oriented Heart/Lung Eval Prior to Sedation: within normal limits Candidate for Sedation? Yes Procedure Date: 09/24/17 Procedure Type: push enteroscopy with bicap cautery Bond Analyst: Shashank Hdz MD ASA Classification: III Indications: Recurrent anemia in a pt with a history of small bowel avms. Instrument: diagnostic gastroscope Meds Received: MAC Patient's Tolerance: good Complications: none Extent Reached: mid-jejunum Procedure: After getting written informed consent the patient was placed in the left lateral decubitus position with pulse oximetry, cardiac monitoring, and supplemental oxygen given. A bite block was inserted and IV sedation was given until the desired effect was achieved. A high definition pediatric Olympus colonoscope was then inserted into the mouth and advanced to the mid jejunum with little difficulty. Retroflexed views and photodocumentation was obtained. Findings: Esophagus: The esophageal mucosa was grossly normal appearance and there was a normal-appearing Z line at 41 sediment isn't incisors. Stomach: There were mild erythematous changes in the antrum, but there were no ulcers, erosions, or masses appreciated. Distention and peristalsis of the stomach appeared normal. Retroflexed views were normal and did not reveal a significant hiatal hernia. Duodenum: Grossly normal in appearance. Jejunum: There were a total of 4 nonbleeding AVMs appreciated to the mid jejunum. All of the AVMs were ablated using BiCAP cautery without any significant bleeding ensuing. There was bile appreciated throughout to the mid jejunum without any active bleeding appreciated. Impression: 1. 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 2. Nonerosive gastritis. 3. No active bleeding appreciated. Recommendations: 1. She should be transferred back to the medical floor in her diet can be advanced as tolerated. 2. She should be maintained on oral PPI. 3. She should be continued on oral iron supplementation. 4. Would transfuse to keep her hgb closer to 10 upon discharge. 4. She should have close monitoring of her hemoglobin over the next several weeks to months and if she is not able to maintain her hemoglobin with supplemental iron she will be referred for double balloon enteroscopy. CC: Ruthann WILLIAMSON,Eduardo; Rosa Isela WILLIAMSON,Constantine Garces
[2017-09-24 16:00] VITALS: BP 150/82
[2017-09-24 21:12] VITALS: BP 176/68
[2017-09-25 05:47] LABS: HEMATOCRIT 28.3 % (37-47); MEAN CORPUSCULAR HGB 24.3 PG (27.0-31.0); MEAN CORPUSCULAR HGB CONC 30.2 G/DL (33.0-37.0); MEAN CORPUSCULAR VOLUME 80.5 FL (81.0-99.0); MEAN PLATELET VOLUME 7.9 FL (7.4-10.4); PLATELET COUNT 322 /CUMM (130-400); RED BLOOD CELL CT 3.52 /CUMM (4.20-5.40); WHITE BLOOD CELL COUNT 9.7 /CUMM (4.8-10.8)
[2017-09-25 06:49] VITALS: BP 142/66
--- NOTE | 2017-09-25 07:36 | PN- Housestaff ---
Migdalia Covarrubias Riaz Portillo 09/25/17 0736: Subjective Follow-up For: #Acute on chronic blood loss anemia with h/o recent jejunal bleeding #Heart Failure with preserved ejection fraction #Insulin Dependent Diabetes Mellitus #CKD stage III #COPD - not on home oxygen Tele-Events Since Last Visit: NSR Subjective: No overnight event. Patient received 1U PRBC and lasix after transfusion. Appeared anxious about going home and felt frustrated about current situation of anemia. Would like to be discharged as soon as possible. Complainted of nose bleed this morning and threw the wiping tissue to the garbage bin. I saw a tissue with some blood stain on but not much of an amount. Review of Systems Constitutional: Reports: see HPI. Objective Last 24 Hrs of Vital Signs/I&O Vital Signs Date Time Temp Pulse Resp B/P B/P Pulse O2 O2 Flow FiO2 Mean Ox Delivery Rate 09/25 0649 98.3 81 18 142/66 97 Nasal 4.0L Cannula 09/25 2115 Nasal 4.0L Cannula 09/24 2112 78 176/68 09/24 2112 78 176/68 09/24 211 98.5 78 16 176/68 97 Nasal 4.0L Cannula 09/24 1724 74 20 154/74 09/24 1600 98.0 78 16 150/82 91 Nasal 4.0L Cannula 09/24 1215 94 Nasal 4.0L Cannula 09/24 0954 98.1 74 20 154/74 / 0953 98.1 74 20 154/74 / 0953 98.1 74 20 154/74 Intake & Output / 1600 09/25 0800 09/25 0000 Intake Total 400 Output Total 600 250 Balance -600 150 Intake, IV 400 Output, Urine 600 250 Patient 77.791 kg Weight Physical Exam General Appearance: Alert, Oriented X3, Cooperative, No Acute Distress Cardiovascular: Regular Rate Lungs: Clear to Auscultation, Normal Air Movement Abdomen: Soft, No Tenderness Current Medications: Current Medications Sig/Jannet Start time Last Medication Dose Route Stop Time Status Admin Albuterol Sulfate 3 ML Q4-PRN PRN 09/23 1430 AC INH Amlodipine Besylate 10 MG DAILY 09/23 1000 AC 09/24 PO 0953 Budesonide/ 2 PUF BID 09/23 0100 AC 09/24 Formoterol Fumarate INH 2112 Carvedilol 25 MG BID 09/22 2199 AC 09/24 PO 211 Chlorhexidine 1 GM .STK-MED ONE 09/24 1418 DC Gluconate TOP 09/24 1419 Ferrous Sulfate 325 MG BID 09/24 2199 AC 09/24 PO 211 Ferrous Sulfate 325 MG DAILY 09/24 1523 DC PO Furosemide 40 MG ONCE ONE 09/25 1400 AC IV 09/25 1401 Furosemide 40 MG ONCE ONE 09/24 2100 DC 09/24 IV 09/24 2101 2324 Furosemide 60 MG ONCE ONE 09/24 0915 DC 09/24 IV 09/24 0916 1002 Furosemide 60 MG DAILY 09/23 1000 DC 09/23 PO 0953 Hydralazine HCl 100 MG TID 09/23 0100 AC 09/24 PO 2113 Hydroxyzine HCl 25 MG BID 09/22 2199 AC 09/24 PO 2113 Insulin Aspart 0 TIDAC 09/24 1700 AC 09/24 SC 1725 Insulin Detemir 5 UNITS DAILY 09/24 1000 AC 09/24 SC 1006 Insulin Human Regular 0 Q6 09/24 0051 DC SC Nicotine 14 MG DAILY 09/23 1635 AC 09/24 TOP 0952 Omeprazole 40 MG DAILY AC 09/23 0700 AC 09/25 PO 0515 Oxycodone/ 1 TAB Q6P PRN 09/23 0130 AC 09/25 Acetaminophen PO 0517 Pravastatin Sodium 40 MG 1700 09/23 1700 AC 09/24 PO 1724 Trazodone HCl 100 MG AT BEDTIME 09/22 2199 AC 09/24 PO 211 Last 24 Hrs of Lab/Olu Results Last 24 Hrs of Labs/Mics: Laboratory Tests 09/25/17 0520: Anion Gap 8, Estimated GFR 27 L, BUN/Creatinine Ratio 15.8, CBC w Diff MAN DIFF ORDERED, RBC 3.52 L, MCV 80.5 L, MCH 24.3 L, MCHC 30.2 L, RDW 22.0 H, MPV 7.9, Segmented Neutrophils 86 H, Lymphocytes 11 L, Monocytes 3, Platelet Estimate ADEQUATE, Polychromasia 1+, Hypochromic-Microcytic 2+, Poikilocytosis 1 +, Anisocytosis 1+, Microcytic Cells 1+, Ovalocytes 1+, Elliptocytes FEW, Fld Total RBCs Counted 100 Assessment/Plan Assessment: Mrs. Vitale is a 61 year old female with past medical history significant for COPD, HLD, HFpEF, DM, iron deficiency anemia, CKD Stage recently admitted for GI bleed and anemia underwent negative colonoscopy and video capsule endoscopy on with Dr. Hdz, which showed active bleeding in the proximal small bowel due to vascular ectasia/arteriovenous malformations presents with symptomatic anemia. Symptomatic anemia secondary to acute blood loss anemia likely GI bleed Good peripheral access Hemoglobin 8.3-8.5 on discharge 08/15/17 6.0 on presentation, s/p 1U, increased to 7.0 however decreased to 6.4, and received another 1U on 09/23, now 7.5 on latest lab. - GI recommended to keep Hgb around 10. Patient received 1U PRBC on 09/25 overnight and now 8.6. Will transfuse another 1U PRBC. - Denied signs of active bleed, hematochezia or melena, however had nose bleed this morning, not actively bleeding when I was at bedside. - GI endoscopy showed 1. 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 2. Nonerosive gastritis. 3. No active bleeding appreciated. - Monitor for heart failure with blood transfusion and volume resuscitation Iron deficiency anemia (chronic): - MCV low, continue iron supplementation - Continue epogen GI bleed: - PO Prilosec 40mg Qd AC - GI consult as above CKD Stage 4: Creatinine 1.9 on latest lab Previously worse Avoid nephrotoxic agents Trend renal function HFpEF: Continue carvedilol and lasix Echocardiogram 05/2017 LVEF >65%, moderate concentric LVH, mildly elevated RVSP HTN: Continue carvedilol, lasix, norvasc, and hydralazine HLD: Continue statin COPD: Hypoxic on presentation, 86% on room air, now bumped up to 4LNC, likely in combination of previous hx of CHF and current anemia. Will repeat CXR for CHF exacerbation if needed. - Will try to wean down O2 prior discharge. TRC evaluation Continue symbicort and duonebs with albuterol and ipatropium Smoking cessation, nicotine patch if cravings DM: Diabetic diet Accuchecks TIDAC/HS Novolog sliding scale insulin Reduce levemir while NPO PO PPI Heart Healthy DVT ppx-heparin 5000 units subcutaneous q8h Full code Problem List: 1. GI bleed Pain Ratin Pain Location: NA Pain Goal: Remain pain free Pain Plan: see AP Tomorrow's Labs & Rationales: CBC Yaima Cardoso 09/25/17 1113: Attending MD Review Statement Attending Statement Attending MD Statement: examined this patient, discuss w/resident/PA/MEDICAL INSTRUMENT TECHNICIAN, agreed w/resident/PA/MEDICAL INSTRUMENT TECHNICIAN, discussed with family, reviewed EMR data (avail), discussed with nursing, discussed with case mgmt, reviewed images, amended to note Attending Assessment/Plan: 61-year-old female multiple medical problems including diabetes, CKD, refractory hypertension in the past, chronic symptomatic anemia and heart failure likely pulmonary hypertension and right heart failure. She was recently evaluated for this chronic refractory anemia with the pill capsule endoscopy and was found to have small bowel AVMs. She is here with acute on chronic anemia. She was transfused 3 units of PRBC. She was also treated for acute on chronic heart failure likely pulmonary hypertension and right heart failure with IV Lasix and she needs repeat iv lasix dose today alongwith blood transfusion. Follow up GI recommendations to keep hb around 10. Monitor creatinine which appears to be baseline. Referral to outpatient PCP and f/u Dr Wilder ALVAREZ with cbc q weekly.
--- NOTE | 2017-09-25 08:51 | Patient Discharge Instructions ---
Discharge Instructions General Discharge Information Special Instructions: - Please follow up with your new primary care physician Dr. Long on 10/02/2017 morning at 10AM. Should you want to change this appointment, please call to reschedule an appointment. - Please follow up your blood work w/ CBC on a weekly basis with your PCP. - Continue your current medications per discharge instructions. - Please watch for these problems: Fever, Chills, Nausea, Vomiting, Shortness of Breath, Productive Cough, Chest Pain/Discomfort, Abdominal Pain, Active Bleeding or Bloody urine/stool. Diet Continue normal diet: Yes Recommended Diet: Heart Healthy Activity Full Activity/No Limits: Yes Acute Coronary Syndrome Inclusion Criteria At DC or during hospital stay patient has or had the following: ACS DIAGNOSIS No Discharge Core Measures Meds if any: Prescribed or Continued at Discharge Meds if any: NOT Prescribed or Continued at Discharge Congestive Heart Failure Inclusion Criteria At DC or during hospital stay patient has or had the following: CHF DIAGNOSIS No Discharge Core Measures Meds if any: Prescribed or Continued at Discharge Meds if any: NOT Prescribed or Continued at Discharge Cerebrovascular accident Inclusion Criteria At DC or during hospital stay patient has or had the following: CVA/TIA Diagnosis No Discharge Core Measures Meds if any: Prescribed or Continued at Discharge Meds if any: NOT Prescribed or Continued at Discharge Venous thromboembolism Inclusion Criteria VTE Diagnosis No VTE Type NONE VTE Confirmed by (Test) NONE Discharge Core Measures - Per Current guidelines, there needs to be overlap - treatment for the first 5 days of Warfarin therapy. - If discharged on Warfarin prior to 5 days of - overlap therapy, the patient will need to be - assessed for post discharge needs including - *Post discharge parental anticoagulation - *Warfarin and/or parental anticoagulation education - *Follow up date to check INR post discharge At least 5 days overlap therapy as Inpatient No Meds if any: Prescribed or Continued at Discharge Note: Overlap Therapy is Warfarin and Anticoagulant Meds if any: NOT Prescribed or Continued at Discharge
--- NOTE | 2017-09-25 11:34 | Discharge Summary ---
Visit Information Visit Dates Admission Date: 09/22/17 Discharge Date: 09/26/2017 Hospital Course Course Attending Physician: Yaima Cardoso MD Primary Care Physician: Ruthann WILLIAMSON,[place] Hospital Course: Mrs. Vitale is a 61 year old female with past medical history significant for COPD, HLD, HFpEF, DM, iron deficiency anemia, CKD Stage recently admitted for GI bleed and anemia underwent negative colonoscopy and video capsule endoscopy on with Dr. Hdz, which showed active bleeding in the proximal small bowel due to vascular ectasia/arteriovenous malformations presents with symptomatic anemia. On admission: Vitals: Afebrile, RR 20, heartrate 70s-80, blood pressure 180s/80s , and saturating over 92 L oxygen. Chest x-ray: Cardiomegaly, no pulmonary edema, mild subsegmental atelectasis. Significant labs:H&H 6&20, no leukocytosis, creatinine 1.8(at baseline), BNP 2300. Physical Exam: HEENT within normal limits, CVS regular, normal S1/S2, with 2/6 systolic murmur best heard over the apex. Resp decreased air entry with mild crackles over lung base bilaterally. Abdominal soft, not distended, without tenderness X Q4 She had no sign or symptom of active GI bleeding on admission, however given recent history of upper GI bleed, AVM Electrocautery, and presented with low H&H while on aspirin she will need to be admitted for further workup. Patient had received one packed RBCs while in the ED. Her clinical picture would not warrant a CHF exacerbation given low BNP, no pulmonary edema, and no pleural effusion. COPD exacerbation also unlikely given no wheezing and good air entry except at lung bases bilaterally. Patient was admitted to telemetry for following management: #Symptomatic anemia secondary to possible AVM blood loss Patient's last hemoglobin was 8.3-8.5, discharge 08/15/2017, and was 6.0 on admission, status post 1 unit of PRBC transfusion in ER, increased to 7.0, however decreased to 6.4 again the next morning, and receive another unit of PRBC on 09/23/2017, and underwent endoscopy, which reported 1. 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 2. Nonerosive gastritis. 3. No active bleeding GI consult recommended to keep Hgb around 10. Patient was then given 2 more units of PRBC with Lasix to diuresis in order to prevent one overload doing transfusion. Patient had no signs of active bleeding, hematochezia, or melena over the hospital course, however had one episode of mild nosebleeding was blood stain on tissue paper. Patient remains stable hemoglobin of 9.4 prior to discharge, and was advised to follow-up weekly CBCs his primary care in outpatient setting. If her hgb is not able to be maintained with supplemental iron she will then be referred for a double balloon enteroscopy for a more extensive evaluation of the small bowel, as there could be other AVMs beyond the reach of the entenroscope performed in this hospital stay. Paient will be seen by Dr. Long in [facility] office in [facility]. Patient was also advised to continue using PPI for GI protection. #Iron deficiency anemia (chronic): Patient was continue iron supplements twice a day, and Ampligen at home dose. #CKD Stage 4: Patient creatinine remains stable around 1.9 over the hospital stay. Patient was awarded on nephrotoxic agent. #HFpEF: Patient was continue home dose of carvedilol and Lasix, was additional Lasix dose given in between PRBC transfusion. Patient's echocardiogram and 05/2017 showed LVEF >65%, moderate concentric LVH, mildly elevated RVSP. #Hx of HTN, HLD, COPD not on Home Oxygen, DM: Patient was continue on home dose of carvedilol, Lasix, Norvasc, and hydralazine , and statins. Patient was hypoxic on presentation was 86% O2 saturation on room air, provide with supplemental oxygen during hospital course, likely due to symptomatic anemia and/or CHF. Patient was weaned down to room air prior to discharge her satisfying O2 saturation. TRC/nebulizer was given during hospital course for respiratory support. Patient was kept on NovoLog sliding scale with Accu-Cheks during the hospital stay. Heart Healthy Diet DVT ppx-heparin 5000 units subcutaneous q8h Full code Allergies: Coded Allergies: No Known Allergies (09/01/15) Significant Procedures: Procedure Date: 09/24/17 Procedure Type: push enteroscopy with bicap cautery Peanut Cleaner: Shashank Hdz MD ASA Classification: III Indications: Recurrent anemia in a pt with a history of small bowel avms. Instrument: diagnostic gastroscope Meds Received: MAC Patient's Tolerance: good Complications: none Extent Reached: mid-jejunum Procedure: After getting written informed consent the patient was placed in the left lateral decubitus position with pulse oximetry, cardiac monitoring, and supplemental oxygen given. A bite block was inserted and IV sedation was given until the desired effect was achieved. A high definition pediatric Olympus colonoscope was then inserted into the mouth and advanced to the mid jejunum with little difficulty. Retroflexed views and photodocumentation was obtained. Findings: Esophagus: The esophageal mucosa was grossly normal appearance and there was a normal-appearing Z line at 41 sediment isn't incisors. Stomach: There were mild erythematous changes in the antrum, but there were no ulcers, erosions, or masses appreciated. Distention and peristalsis of the stomach appeared normal. Retroflexed views were normal and did not reveal a significant hiatal hernia. Duodenum: Grossly normal in appearance. Jejunum: There were a total of 4 nonbleeding AVMs appreciated to the mid jejunum. All of the AVMs were ablated using BiCAP cautery without any significant bleeding ensuing. There was bile appreciated throughout to the mid jejunum without any active bleeding appreciated. Impression: 1. 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 2. Nonerosive gastritis. 3. No active bleeding appreciated. Recommendations: 1. She should be transferred back to the medical floor in her diet can be advanced as tolerated. 2. She should be maintained on oral PPI. 3. She should be continued on oral iron supplementation. 4. Would transfuse to keep her hgb closer to 10 upon discharge. 4. She should have close monitoring of her hemoglobin over the next several weeks to months and if she is not able to maintain her hemoglobin with supplemental iron she will be referred for double balloon enteroscopy. Pertinent Lab Results: SERVICE DATE: 09/22/17-1504 EXAM TYPE: RAD - XRY-PORTABLE CHEST XRAY IMPRESSION: 1. Enlarged cardiac silhouette and slightly progressive central vascular congestion. No overt pulmonary edema. 2. Mild bibasilar subsegmental atelectasis. SERVICE DATE: 09/24/17- EXAM TYPE: RAD - XRY-PORTABLE CHEST XRAY IMPRESSION: Cardiomegaly, vascular congestion and interstitial edema. Slight interval increase compared to the prior examination Bilateral effusions, left greater than right with associated hazy infiltrate or atelectasis. Disposition Summary Disposition Principal Diagnosis: #Symptomatic anemia secondary to acute GI bleed #Iron deficiency anemia chronic #CKD stage IV #HFpEF #History of hypertension, hyperlipidemia, COPD not on home oxygen, diabetes Additional Diagnosis: As above Discharge Disposition: home health services Discharge Instructions General Discharge Information Code Status: Full Code Patient's Diet: Heart Healthy Patient's Activity: As tolerated Follow-Up Instructions/Appts: - Please follow up with your new primary care physician Dr. Long on 10/02/2017 morning at 10AM. Should you want to change this appointment, please call [phone] to reschedule an appointment. - Please follow up your blood work w/ CBC on a weekly basis with your PCP. - Continue your current medications per discharge instructions. - Please watch for these problems: Fever, Chills, Nausea, Vomiting, Shortness of Breath, Productive Cough, Chest Pain/Discomfort, Abdominal Pain, Active Bleeding or Bloody urine/stool. Medications at Discharge Discharge Medications: Stop taking the following medications: Oxycodone HCl/Acetaminophen (Percocet 7.5-325 MG Tablet) 7.5 MG-325 MG TABLET ORAL 4 TIMES A DAY as needed for PAIN Qty = 112 Continue taking these medications: Hydroxyzine Hydrochloride (Atarax) 25 MG TABLET 1 Tablet ORAL TWICE DAILY Comments: Last Taken: 09/26/17 Time: 0930 AM Pregabalin (Lyrica) 50 MG CAPSULE 1 Capsule ORAL THREE TIMES DAILY Comments: NOT GIVEN IN HOSPITAL Trazodone HCl (Trazodone HCl) 150 MG TABLET 1 Tablet ORAL Every night Comments: Last Taken: 09/25/17 Time: 10 PM Carvedilol (Carvedilol) 25 MG TABLET 25 Milligram ORAL TWICE DAILY Qty = 60 Instructions: .. Comments: Last Taken: 09/26/17 Time: 0930 AM Amlodipine Besylate (Norvasc) 10 MG TABLET 10 Milligram ORAL DAILY Qty = 30 Instructions: .. Comments: Last Taken: 09/26/17 Time: 0930 AM Insulin Aspart (Novolog) 100 UNIT/ML VIAL 0 Units Inject into fatty tissue 3 TIMES DAILY BEFORE MEALS Qty = 10 Instructions: sugar unit <150 0 151-200 4 201-250 6 251-300 8 301-350 10 351-400 12 >400 14, call Comments: Last Taken: 09/25/17 Time: 1225 PM Fenofibrate (Tricor) 48 MG TABLET 1 Tablet ORAL DAILY Qty = 30 Comments: NOT GIVEN IN HOSPITAL Pravastatin Sodium (Pravachol) 40 MG TABLET 1 Tablet ORAL DAILY Qty = 30 Comments: Last Taken: 09/25/17 Time: 5PM Pantoprazole Sodium (Protonix) 40 MG TABLET. 1 Tablet ORAL DAILY Qty = 30 Comments: NOT GIVEN IN HOSPITAL GIVEN PRILOSE IN HOSPITAL 09/26/17 0600 AM Aspirin (Ecotrin*) 81 MG TABLET. 1 Tablet ORAL DAILY Qty = 30 Comments: NOT GIVEN IN HOSPITAL Albuterol Sulfate (Proair Hfa) 90 MCG HFA.AER.AD 2 Puff Inhale through mouth Every 4 hours Qty = 2 Comments: NOT GIVEN IN HOSPITAL Fluticasone/Salmeterol (Advair 250-50 Diskus) 250 MCG-50 MCG/DOSE BLST.W.DEV 1 Puff Inhale through mouth TWICE DAILY Qty = 60 Comments: NOT GIVEN IN HOSPITAL Hydralazine HCl (Hydralazine HCl) 100 MG TABLET 1 Tablet ORAL THREE TIMES DAILY Qty = 90 Instructions: take 1 tab three times a day.. Comments: Last Taken: 09/26/17 Time: 0630 AM Albuterol Sulfate (Albuterol Sulfate) 2.5 MG/3 ML (0.083 %) VIAL.NEB 3 Milliliters Inhale through mouth EVERY 4-6 HOURS NEEDED as needed for SHORTNESS OF BREATH Qty = 90 Instructions: . Comments: NOT GIVEN IN HOSPITAL. Furosemide (Lasix) 40 MG TABLET 1.5 Tablet ORAL DAILY Qty = 30 Comments: Last Taken: 09/26/17 Time: 0930 AM Epoetin Elia (Procrit) (Unknown Strength) VIAL Unknown Dose EVERY SUNDAY Insulin Detemir (Levemir) 100 UNIT/ML VIAL 24 Units Inject into fatty tissue TAKE AT BEDTIME Comments: Last Taken: 09/26/17 Time: 0930 AM Mirtazapine (Mirtazapine) (Unknown Strength) TABLET Unknown Dose Qty = 30 Comments: NOT GIVEN IN HOSPITAL. The following medications have been changed: Old: Ferrous Sulfate (Ferrous Sulfate) 325 MG (65 MG IRON) TABLET. 325 Milligram ORAL DAILY Qty = 60 New: Ferrous Sulfate (Ferrous Sulfate) 325 MG (65 MG IRON) TABLET. 325 Milligram ORAL TWICE DAILY Qty = 60 Instructions: take 1 tab twice a day. Comments: Last Taken: 09/26/17 Time: 0930 AM Copies To: Mercedes WILLIAMSON,Mercedes
--- NOTE | 2017-09-25 14:00 | PN- Gastroenterology ---
Assessment/Plan GI Assessment/Recommendations: Assessment: Ms. 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 She is without overt GI bleeding, but as it is possible there were other AVMs beyond the reach of the enteroscope I have recommended that she be transfused to a hgb of 10 to give her some ' reserve' should she continue to bleed. If her hgb is not able to be maintained with supplemental iron she will then be referred for a double balloon enteroscopy for a more extensive evaluation of the small bowel. Recommendations: 1. Follow daily cbc 2. Transfuse to a hgb of 10 3. Continue oral iron supplementation 4. Diet as tolerated 5. Continue oral ppi daily 6. Would discharge home tommorrow if no other active issues and I have asked her to contact my office on discharge so that a repeat cbc can be done early next week. Will sign off at this time and ask that GI be re-contacted for any new Gi issues. Problem List: 1. Anemia 2. GI bleed 3. Symptomatic anemia Subjective Subjective: Pt without any complaints albeit she is frustrated by the recurrent anemia. She is s/p push enteroscopy yesterday with ablation of 4 non-bleeding avms in the jejunum. She is getting transfused now which she is tolerating well. She denies any significant abdominal pain, vomiting or melena. Objective Vital Signs and I&Os Vital Signs Date Time Temp Pulse Resp B/P B/P Pulse O2 O2 Flow FiO2 Mean Ox Delivery Rate 09/25 925 98.3 81 142/66 04/ 0925 98.3 81 18 142/66 / 0925 98.3 81 18 142/66 / 0800 96 Nasal 2.0L Cannula 09/25 0649 98.3 81 18 142/66 97 Nasal 4.0L Cannula 09/25 2115 Nasal 4.0L Cannula 09/24 2112 78 176/68 09/24 2112 78 176/68 09/25 2111 98.5 78 16 176/68 97 Nasal 4.0L Cannula 09/24 1724 74 20 154/74 09/24 1600 98.0 78 16 150/82 91 Nasal 4.0L Cannula Intake & Output 09/25 1600 09/25 0400 09/24 1600 09/24 0400 09/23 1600 09/23 0400 Intake Total 400 950 500 Output Total 600 250 900 Balance -600 150 50 500 Intake, Blood 350 350 Product Intake, IV 400 50 150 Intake, Oral 550 Output, Urine 600 250 900 Patient 172 lb 181 lb Weight Weight Reported by Patient Measurement Method Physical Exam General Appearance: well developed/nourished, no apparent distress, comfortable Head: atraumatic, normal appearance Neck: normal inspection, supple Respiratory: normal breath sounds, chest non-tender, no respiratory distress Cardiovascular: regular rate/rhythm Abdomen: normal bowel sounds, soft, non-tender Extremities: no edema Neurologic/Psychiatric: no motor/sensory deficits, awake, alert, oriented x 3 Current Medications: Current Medications Sig/Jannet Start time Last Medication Dose Route Stop Time Status Admin Albuterol Sulfate 3 ML Q4-PRN PRN 09/23 1430 AC INH Amlodipine Besylate 10 MG DAILY 09/23 1000 AC 09/25 PO 0925 Budesonide/ 2 PUF BID 09/23 0100 AC 09/25 Formoterol Fumarate INH 0926 Carvedilol 25 MG BID 09/22 2200 AC 09/25 PO 0925 Chlorhexidine 1 GM .STK-MED ONE 09/24 1418 DC Gluconate TOP 09/24 1419 Ferrous Sulfate 325 MG BID 09/24 2200 AC 09/25 PO 0925 Ferrous Sulfate 325 MG DAILY 09/24 1523 DC PO Furosemide 40 MG ONCE ONE 09/25 1400 AC IV 09/25 1401 Furosemide 40 MG ONCE ONE 09/24 2100 DC 09/24 IV 09/24 2101 2324 Hydralazine HCl 100 MG TID 09/23 0100 AC 09/25 PO 0926 Hydroxyzine HCl 25 MG BID 09/22 2200 AC 09/25 PO 0925 Insulin Aspart 0 TIDAC 09/24 1700 AC 09/25 SC 1225 Insulin Detemir 5 UNITS DAILY 09/24 1000 AC 09/25 SC 0925 Insulin Human Regular 0 Q6 09/24 0051 DC SC Nicotine 14 MG DAILY 09/23 1635 AC 09/25 TOP 0926 Omeprazole 40 MG DAILY AC 09/23 0700 AC 09/25 PO 0515 Oxycodone/ 1 TAB Q6P PRN 09/23 0130 AC 04/03 Acetaminophen PO 1228 Pravastatin Sodium 40 MG 1700 09/23 1700 AC 09/24 PO 1724 Trazodone HCl 100 MG AT BEDTIME 09/22 2199 AC 09/24 PO 2113 Results Pertinent Lab Results: Laboratory Tests 09/25 09/24 0520 0627 Chemistry Sodium (137 - 145 mmol/L) 139 141 Potassium (3.5 - 5.1 mmol/L) 4.4 4.5 Chloride (98 - 107 mmol/L) 104 105 Carbon Dioxide (22 - 30 mmol/L) 27 28 Anion Gap (5 - 16) 8 8 BUN (7 - 17 mg/dL) 30 H 27 H Creatinine (0.5 - 1.0 mg/dL) 1.9 H 2.0 H Estimated GFR (>60 ml/min) 27 L 26 L BUN/Creatinine Ratio (7 - 25 %) 15.8 13.5 Hematology CBC w Diff MAN DIFF ORDERED MAN DIFF ORDERED WBC (4.8 - 10.8 /CUMM) 9.7 7.1 RBC (4.20 - 5.40 /CUMM) 3.52 L 3.13 L Hgb (12.0 - 16.0 G/DL) 8.6 L 7.6 L Hct (37 - 47 %) 28.3 L 24.9 L MCV (81.0 - 99.0 FL) 80.5 L 79.5 L MCH (27.0 - 31.0 PG) 24.3 L 24.2 L MCHC (33.0 - 37.0 G/DL) 30.2 L 30.4 L RDW (11.5 - 14.5 %) 22.0 H 22.1 H Plt Count (130 - 400 /CUMM) 322 334 MPV (7.4 - 10.4 FL) 7.9 8.7 Segmented Neutrophils (42.2 - 75.2 %) 86 H 80 H Lymphocytes (20.5 - 51.1 %) 11 L 10 L Monocytes (1.7 - 9.3 %) 3 8 Eosinophils (0 - 5.0 %) 2 Nucleated RBCs (0.0 - 0.0 /100WBC) 2 H Platelet Estimate (ADEQUATE) ADEQUATE ADEQUATE Polychromasia 1+ 1+ Hypochromic-Microcytic 2+ 1+ Poikilocytosis 1+ 1+ Anisocytosis 1+ 1+ Microcytic Cells 1+ Ovalocytes 1+ Elliptocytes FEW Other Body Source Fld Total RBCs Counted (%) 100 09/23 09/23 1808 0640 Chemistry Sodium (137 - 145 mmol/L) 140 Potassium (3.5 - 5.1 mmol/L) 4.4 Chloride (98 - 107 mmol/L) 105 Carbon Dioxide (22 - 30 mmol/L) 26 Anion Gap (5 - 16) 8 BUN (7 - 17 mg/dL) 23 H Creatinine (0.5 - 1.0 mg/dL) 1.8 H Estimated GFR (>60 ml/min) 29 L BUN/Creatinine Ratio (7 - 25 %) 12.8 Hematology CBC w Diff MAN DIFF ORDERED MAN DIFF ORDERED WBC (4.8 - 10.8 /CUMM) 7.6 7.5 RBC (4.20 - 5.40 /CUMM) 3.11 L 2.77 L Hgb (12.0 - 16.0 G/DL) 7.5 L 6.4 *L Hct (37 - 47 %) 24.7 L 21.6 L MCV (81.0 - 99.0 FL) 79.4 L 77.9 L MCH (27.0 - 31.0 PG) 24.0 L 23.1 L MCHC (33.0 - 37.0 G/DL) 30.3 L 29.6 L RDW (11.5 - 14.5 %) 21.6 H 21.8 H Plt Count (130 - 400 /CUMM) 339 320 MPV (7.4 - 10.4 FL) 8.6 8.9 Segmented Neutrophils (42.2 - 75.2 %) 75 72 Lymphocytes (20.5 - 51.1 %) 13 L 14 L Monocytes (1.7 - 9.3 %) 9 11 H Eosinophils (0 - 5.0 %) 1 2 Basophils (0.0 - 2.0 %) 2 1 Nucleated RBCs (0.0 - 0.0 /100WBC) 1 H Platelet Estimate (ADEQUATE) VERIFIED BY SMEAR VERIFIED BY SMEAR Polychromasia 1+ 1+ Hypochromic-Microcytic 1+ 2+ Poikilocytosis 1+ 1+ Anisocytosis 2+ 1+ Microcytic Cells 1+ Ovalocytes FEW 1+ [place] Cells RARE Other Body Source Fld Total RBCs Counted (%) 100 09/22 09/22 09/22 2220 2202 1746 Chemistry Lactic Acid Cancelled Troponin I Cancelled Hematology CBC w Diff MAN DIFF ORDERED WBC (4.8 - 10.8 /CUMM) 6.8 RBC (4.20 - 5.40 /CUMM) 2.96 L Hgb (12.0 - 16.0 G/DL) 7.0 *L Hct (37 - 47 %) 23.3 L MCV (81.0 - 99.0 FL) 78.6 L MCH (27.0 - 31.0 PG) 23.7 L MCHC (33.0 - 37.0 G/DL) 30.2 L RDW (11.5 - 14.5 %) 21.4 H Plt Count (130 - 400 /CUMM) 369 MPV (7.4 - 10.4 FL) 7.5 Segmented Neutrophils (42.2 - 75.2 %) 71 Band Neutrophils (0.0 - 5.0 %) 1 Lymphocytes (20.5 - 51.1 %) 16 L Monocytes (1.7 - 9.3 %) 9 Eosinophils (0 - 5.0 %) 2 Basophils (0.0 - 2.0 %) 1 Platelet Estimate (ADEQUATE) ADEQUATE Polychromasia 1+ Hypochromic-Microcytic 1+ Anisocytosis 1+ Microcytic Cells 1+ 09/22 09/22 1615 1505 Chemistry Lactic Acid (0.7 - 2.1 mmol/L) 1.3 Urines Urine Color (YEL,AMB,STR) YEL Urine Clarity (CLEAR) CLEAR Urine pH (5.0 - 8.0) 6.0 Ur Specific [place] (1.001 - 1.035) 1.020 Urine Protein (NEG,<30 MG/DL) 100 H Urine Ketones (NEG) NEG Urine Nitrite (NEG) NEG Urine Bilirubin (NEG) NEG Urine Urobilinogen (0.1 - 1.0 EU/dl) 0.2 Ur Leukocyte Esterase (NEG) NEG Ur Microscopic SEDIMENT EXAMINED Urine RBC (0 - 5 /HPF) RARE Urine WBC (0 - 2 /HPF) RARE Ur Epithelial Cells (NONE,FEW) RARE Urine Hemoglobin (NEG) NEG Urine Glucose (N MG/DL) NEG 09/22 1505 Chemistry Sodium (137 - 145 mmol/L) 141 Potassium (3.5 - 5.1 mmol/L) 4.8 Chloride (98 - 107 mmol/L) 105 Carbon Dioxide (22 - 30 mmol/L) 28 Anion Gap (5 - 16) 8 BUN (7 - 17 mg/dL) 22 H Creatinine (0.5 - 1.0 mg/dL) 1.8 H Estimated GFR (>60 ml/min) 29 L BUN/Creatinine Ratio (7 - 25 %) 12.2 Glucose (65 - 99 mg/dL) 126 H Calcium (8.4 - 10.2 mg/dL) 7.8 L Total Bilirubin (0.2 - 1.3 mg/dL) 0.2 AST (14 - 36 U/L) 12 L ALT (9 - 52 U/L) 14 Alkaline Phosphatase (<127 U/L) 39 Troponin I (< 0.11 ng/ml) < 0.01 [id number] Pept (<125 pg/mL) 2310 H Total Protein (6.3 - 8.2 g/dL) 5.9 L Albumin (3.5 - 5.0 g/dL) 3.0 L Globulin (1.9 - 4.2 gm/dL) 2.9 Albumin/Globulin Ratio (1.1 - 2.2 %) 1.0 L Coagulation PT (9.4 - 12.5 SEC) 12.8 H INR (0.90 - 1.19) 1.17 APTT (25 - 37 SEC) 31 Hematology CBC w Diff MAN DIFF ORDERED WBC (4.8 - 10.8 /CUMM) 6.1 RBC (4.20 - 5.40 /CUMM) 2.67 L Hgb (12.0 - 16.0 G/DL) 6.0 *L Hct (37 - 47 %) 20.6 L MCV (81.0 - 99.0 FL) 76.9 L MCH (27.0 - 31.0 PG) 22.3 L MCHC (33.0 - 37.0 G/DL) 29.0 L RDW (11.5 - 14.5 %) 22.5 H Plt Count (130 - 400 /CUMM) 382 MPV (7.4 - 10.4 FL) 7.5 Segmented Neutrophils (42.2 - 75.2 %) 82 H Lymphocytes (20.5 - 51.1 %) 6 L Monocytes (1.7 - 9.3 %) 7 Eosinophils (0 - 5.0 %) 3 Basophils (0.0 - 2.0 %) 2 Nucleated RBCs (0.0 - 0.0 /100WBC) 1 H Platelet Estimate (ADEQUATE) ADEQUATE Polychromasia 1+ Hypochromic-Microcytic 2+ Poikilocytosis 1+ Anisocytosis 2+ Microcytic Cells 1+ Ovalocytes FEW Elliptocytes FEW Schistocytes RARE
[2017-09-25 15:44] VITALS: BP 152/58
[2017-09-26 06:00] VITALS: BP 182/94
--- NOTE | 2017-09-26 07:46 | PN- Housestaff ---
See Addendum Subjective Follow-up For: #Acute on chronic blood loss anemia with h/o recent jejunal bleeding #Heart Failure with preserved ejection fraction #Insulin Dependent Diabetes Mellitus #CKD stage III #COPD - not on home oxygen Tele-Events Since Last Visit: NSR Subjective: No overnight event. Patient was resting comfortably on bed at 2LNC. No other specific complaint. Review of Systems Constitutional: Reports: see HPI. Objective Last 24 Hrs of Vital Signs/I&O Vital Signs Date Time Temp Pulse Resp B/P B/P Pulse O2 O2 Flow FiO2 Mean Ox Delivery Rate 09/26 0609 66 182/94 09/26 0600 98.0 67 18 182/94 90 09/26 0000 Nasal 2.0L Cannula 09/25 214 77 138/54 09/25 2145 75 138/54 09/25 1850 78 Room Air 09/25 1700 76 168/60 09/25 1600 Nasal 2.0L Cannula 09/25 1544 98.8 72 20 152/58 92 09/25 0926 98.3 81 142/66 09/25 0925 98.3 81 18 142/66 0403 0925 98.3 81 18 142/66 Intake & Output 09/26 1600 04 0800 09/26 0000 Intake Total 110 400 Output Total 30 700 Balance 80 -300 Intake, IV 10 Intake, Oral 100 400 Number 1 0 Bowel Movements Output, Urine 30 700 Physical Exam General Appearance: Sleeping Cardiovascular: Regular Rate Current Medications: Current Medications Sig/Jannet Start time Last Medication Dose Route Stop Time Status Admin Albuterol Sulfate 3 ML Q4-PRN PRN 09/23 1430 AC INH Amlodipine Besylate 10 MG DAILY 09/23 1000 AC 09/25 PO 0925 Budesonide/ 2 PUF BID 09/23 0100 AC 09/25 Formoterol Fumarate INH 2141 Carvedilol 25 MG BID 09/22 2200 AC 09/25 PO 214 Ferrous Sulfate 325 MG BID 09/24 2199 AC 09/25 PO 214 Furosemide 40 MG ONCE ONE 09/25 1400 DC 09/25 IV 09/25 1401 1357 Hydralazine HCl 100 MG TID 09/23 0100 AC 09/26 PO 0609 Hydroxyzine HCl 25 MG BID 09/22 2200 AC 09/25 PO 2142 Insulin Aspart 0 TIDAC 09/24 1700 AC 09/25 SC 1225 Insulin Detemir 5 UNITS DAILY 09/24 1000 AC 09/25 SC 0925 Nicotine 14 MG DAILY 09/23 1635 AC 09/25 TOP 0926 Omeprazole 40 MG DAILY AC 09/23 0700 AC 09/26 PO 0558 Oxycodone/ 1 TAB Q6P PRN 09/23 0130 AC 09/25 Acetaminophen PO 1909 Patient Medication 1 ED ONE ONE 09/25 1445 DC 09/25 Teaching ED 09/25 1446 1451 Pravastatin Sodium 40 MG 1700 09/23 1700 AC 09/25 PO 1657 Sodium Chloride 2 SPRAY Q4P PRN 09/25 1900 AC 09/25 BECKA 2146 Trazodone HCl 100 MG AT BEDTIME 09/22 2200 AC 09/25 PO 2142 Last 24 Hrs of Lab/Olu Results Last 24 Hrs of Labs/Mics: Laboratory Tests 09/26/17 0615: Sodium Pending, Potassium Pending, Chloride Pending, Carbon Dioxide Pending, Anion Gap Pending, BUN Pending, Creatinine Pending, BUN/Creatinine Ratio Pending , CBC w Diff Pending, WBC Pending, RBC Pending, Hgb Pending, Hct Pending, MCV Pending, MCH Pending, MCHC Pending, RDW Pending, Plt Count Pending, MPV Pending Assessment/Plan Assessment: Mrs. Vitale is a 61 year old female with past medical history significant for COPD, HLD, HFpEF, DM, iron deficiency anemia, CKD Stage recently admitted for GI bleed and anemia underwent negative colonoscopy and video capsule endoscopy on with Dr. Hdz, which showed active bleeding in the proximal small bowel due to vascular ectasia/arteriovenous malformations presents with symptomatic anemia. Symptomatic anemia secondary to acute blood loss anemia likely GI bleed Good peripheral access Hemoglobin 8.3-8.5 on discharge 08/15/17 6.0 on presentation, s/p 1U, increased to 7.0 however decreased to 6.4, and received another 1U on 09/23, now 7.5 on latest lab. - GI recommended to keep Hgb around 10. - s/p 4U PRBC in total. pending CBC this AM. - Denied signs of active bleed, hematochezia or melena, however had nose bleed this morning, not actively bleeding when I was at bedside. - GI endoscopy showed 1. 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 2. Nonerosive gastritis. 3. No active bleeding appreciated. - Monitor for heart failure with blood transfusion and volume resuscitation Iron deficiency anemia (chronic): - MCV low, continue iron supplementation - Continue epogen GI bleed: - PO Prilosec 40mg Qd AC - GI consult as above CKD Stage 4: Creatinine 1.9 on latest lab Previously worse Avoid nephrotoxic agents Trend renal function HFpEF: Continue carvedilol and lasix Echocardiogram 05/2017 LVEF >65%, moderate concentric LVH, mildly elevated RVSP HTN: Continue carvedilol, lasix, norvasc, and hydralazine HLD: Continue statin COPD: Hypoxic on presentation, now satting 90% under 2LNC - Will try to wean down to room air. prior discharge. TRC evaluation Continued symbicort and duonebs with albuterol and ipatropium Smoking cessation, nicotine patch if cravings DM: Diabetic diet Accuchecks TIDAC/HS Novolog sliding scale insulin PO PPI Heart Healthy DVT ppx-heparin 5000 units subcutaneous q8h Full code Problem List: 1. GI bleed Pain Ratin Pain Location: NA Pain Goal: Remain pain free Pain Plan: see AP Tomorrow's Labs & Rationales: CBC
[2017-09-26 07:59] LABS: ABSOLUTE BASOPHIL COUNT 0 /CUMM (0.0-0.2); BASOPHIL % 0 % (0.0-2.0); MEAN PLATELET VOLUME 8.6 FL (7.4-10.4)
[2017-09-26] MEDS ORDERED: FERROUS SULFAT325 M2 PO (08:16)
[2017-09-26 08:23] VITALS: BP 180/80
[2017-09-26 08:36] LABS: ABSOLUTE EOSINOPHIL COUNT 0.2 /CUMM (0.0-0.7); ABSOLUTE GRANULOCYTE CT 6.1 /CUMM (1.4-6.5); ABSOLUTE LYMPH COUNT 0.9 /CUMM (1.2-3.4); ABSOLUTE MONOCYTE COUNT 0.8 /CUMM (0.10-0.60); EOSINOPHIL % 2.8 % (0-5); MEAN CORPUSCULAR HGB 25.6 PG (27.0-31.0); MEAN CORPUSCULAR HGB CONC 31.4 G/DL (33.0-37.0); MEAN CORPUSCULAR VOLUME 81.6 FL (81.0-99.0); PLATELET COUNT 274 /CUMM (130-400); RBC DISTRIBUTION WIDTH 21.5 % (11.5-14.5); RED BLOOD CELL CT 3.68 /CUMM (4.20-5.40)
== END 2017-09-26 14:00 | disposition home health service (06) | DRG 253 ==
LOC: ERH 14:34 → ERHI 18:39 → 1NO 18:39 → ENRESERV 20:50 → 1NO 21:22 → ENPENDDIS 09-26 10:22 → 1NO 09-26 14:00
PROVIDERS: Emergency Medicine; Physician Assistant Medical; Student in an Organized Health Care Education/Training Program
PROC: 30233N1 Transfusion of Nonautologous Red Blood Cells into Peripheral Vein, Percutaneous Approach (ICD-10-PCS; 2017-09-22)
PROC: 0D5A8ZZ Destruction of Jejunum, Via Natural or Artificial Opening Endoscopic (ICD-10-PCS; principal; 2017-09-24)
PROC: 0W3P8ZZ Control Bleeding in Gastrointestinal Tract, Via Natural or Artificial Opening Endoscopic (ICD-10-PCS; principal; 2017-09-24)
DX: K31.811 Angiodysplasia of stomach and duodenum with bleeding (principal); B18.2 Chronic viral hepatitis C; J44.9 Chronic obstructive pulmonary disease, unspecified; I13.0 Hypertensive heart and chronic kidney disease with heart failure and stage 1 through stage 4 chronic kidney disease, or unspecified chronic kidney disease; E11.22 Type 2 diabetes mellitus with diabetic chronic kidney disease; N18.4 Chronic kidney disease, stage 4 (severe); I50.32 Chronic diastolic (congestive) heart failure; R09.02 Hypoxemia; D62 Acute posthemorrhagic anemia; E78.5 Hyperlipidemia, unspecified; F17.210 Nicotine dependence, cigarettes, uncomplicated; Z79.82 Long term (current) use of aspirin; Z79.4 Long term (current) use of insulin; Z79.891 Long term (current) use of opiate analgesic; Z79.51 Long term (current) use of inhaled steroids; K21.9 Gastro-esophageal reflux disease without esophagitis; H26.9 Unspecified cataract; Z91.81 History of falling; Z90.49 Acquired absence of other specified parts of digestive tract; Q27.33 Arteriovenous malformation of digestive system vessel
CPT/HCPCS: 1NSP; 36415; 36592; 71045; 81001; 82436; 86920; 93005; 93010; J1940; P9016

== ENCOUNTER 2017-11-20 12:53 | Inpatient (IN) | payer OTHER ==
[~2017-11-20] VITALS: Ht 154.9 cm; Wt 91.2 kg
[~2017-11-20 12:53] MED LIST changes: +MIRTAZAPINE7.5 M1; +PROCRIT20000 UNIT IV
--- NOTE | 2017-11-20 13:09 | ED DYSPNEA/ASTHMA COMPLAINT ---
History of Present Illness General Chief Complaint: Dyspnea (COPD, CHF, Other) Stated Complaint: BIBA INCREASED SOB Source: patient, old records Exam Limitations: no limitations Allergies Coded Allergies: No Known Allergies (09/01/15) Reconcile Medications Albuterol Sulfate (Proair Hfa) 90 MCG HFA.AER.AD 2 PUF INH Q4 BREATHING PROBLEMS Albuterol Sulfate 2.5 MG/3 ML (0.083 %) VIAL.NEB 3 ML INH Q4-6 PRN PRN SHORTNESS OF BREATH . Amlodipine Besylate (Norvasc) 10 MG TABLET 10 MG PO DAILY blood pressure .. Aspirin (Ecotrin*) 81 MG TABLET.DR 1 TAB PO DAILY HEART HEALTH Carvedilol 25 MG TABLET 25 MG PO BID blood pressure .. Epoetin Elia (Procrit) (Unknown Strength) VIAL (Unknown Dose) QTUES ANEMIA ( Reported) Fenofibrate (Tricor) 48 MG TABLET 1 TAB PO DAILY CHOLESTEROL Ferrous Sulfate 325 MG (65 MG IRON) TABLET.DR 325 MG PO BID Iron Def Anemia take 1 tab twice a day. Fluticasone/Salmeterol (Advair 250-50 Diskus) 250 MCG-50 MCG/DOSE BLST.W.DEV 1 PUF INH BID BREATHING PROBLEMS Furosemide (Lasix) 40 MG TABLET 1.5 TAB PO DAILY WATER RETENTION Hydralazine HCl 100 MG TABLET 1 TAB PO TID BLOOD PRESSURE take 1 tab three times a day.. Hydroxyzine Hydrochloride (Atarax) 25 MG TABLET 1 TAB PO BID UNKNOWN ( Reported) Insulin Aspart (Novolog) 100 UNIT/ML VIAL 0 UNITS SC TIDAC diabetes sugar unit <150 0 151-200 4 201-250 6 251-300 8 301-350 10 351-400 12 >400 14, call Insulin Detemir (Levemir) 100 UNIT/ML VIAL 24 UNITS SC QHS DM (Reported) Mirtazapine (Unknown Strength) TABLET (Unknown Dose) UNKNOWN (Reported) Pantoprazole Sodium (Protonix) 40 MG TABLET.DR 1 TAB PO DAILY ACID REFLUX Pravastatin Sodium (Pravachol) 40 MG TABLET 1 TAB PO DAILY CHOLESTEROL Pregabalin (Lyrica) 50 MG CAPSULE 1 CAP PO TID PAIN (Reported) Trazodone HCl 150 MG TABLET 1 TAB PO QPM SLEEP (Reported) Triage Nurses Notes Reviewed? yes Onset: Gradual Duration: day(s): Timing: recent history Severity: moderate HPI: 62YO female with hx of COPD, CHF, HTN, DM, CKD, anemia BIBA complaining of worsening dyspnea x 3 days. Patient states dyspnea is worse with exertion at times. Patient states that this morning she felt as though she cannot breathe and called for an ambulance. Per EMS, when they arrived on scene patient was hypoxic with O2 sat in 70's. Patient reports one episode of chest pain last night lasting minutes and then resolving, described as substernal. Patient reports increasing swelling to bilateral lower legs for the past week. She has a history of chronic swelling, goes to clinic once a week, was postictal CHF clinic today for IV Lasix. Patient reports dry cough. She denies fevers, chills, hemoptysis, abdominal pain, vomiting, diarrhea. (Hayley IRVIN,Patito Reyes) Vital Signs & Intake/Output Vital Signs & Intake/Output Vital Signs Date Time Temp Pulse Resp B/P B/P Pulse O2 O2 Flow FiO2 Mean Ox Delivery Rate 11/20 1655 66 24 180/80 79 Room Air Room Air 11/20 1446 98.2 67 24 186/84 97 Nasal 2.0L Cannula 11/20 1314 96 Nasal 2.0L Cannula 11/20 1306 97.9 68 22 202/84 96 Nasal 2.0L Cannula (Diamante WILLIAMSON,Renato Dasilva) Past History Travel History Traveled to [place] past 21 day No Medical History Any Pertinent Medical History? see below for history Neurological: NONE EENT: cataracts Cardiovascular: CHF, hypertension, hyperlipidemia Respiratory: COPD, pneumonia Gastrointestinal: GERD, iron deficiency anemia chronic, intermittent diarrhea Hepatic: cholecystitis, hepatitis C Renal: chronic kidney disease Musculoskeletal: falls, osteoporosis Psychiatric: NONE Endocrine: diabetes Blood Disorders: anemia Cancer(s): NONE STORE STOCK HELP/Reproductive: NONE History of MRSA: No History of VRE: No History of CDIFF: No Surgical History Surgical History: appendectomy, cholecystectomy, CATARACTS Psychosocial History Who do you live with Son [facility] What is your primary language Nigerien Family History Family History, If Any: MOTHER FH: diabetes mellitus Hx Contributory? No (Patito Ruby) Review of Systems Review of Systems Constitutional: Reports: no symptoms. EENTM: Reports: no symptoms. Respiratory: Reports: see HPI. Cardiovascular: Reports: see HPI. GI: Reports: no symptoms. Genitourinary: Reports: no symptoms. Musculoskeletal: Reports: no symptoms. Skin: Reports: no symptoms. Neurological/Psychological: Reports: no symptoms. Hematologic/Endocrine: Reports: no symptoms. Immunologic/Allergic: Reports: no symptoms. All Other Systems: Reviewed and Negative (Hyaley IRVIN,Patito Reyes) Physical Exam Physical Exam General Appearance: well developed/nourished, no apparent distress, alert, awake Head: atraumatic, normal appearance Eyes: Bilateral: normal appearance. Ears, Nose, Throat: hearing grossly normal Neck: normal inspection, supple, full range of motion Respiratory: no respiratory distress, diminished breath sounds bialterally Cardiovascular: regular rate/rhythm Gastrointestinal: normal bowel sounds, soft, non-tender, no organomegaly Extremities: 2+ pitting edema bilaterally Neurologic/Psych: awake, alert, oriented x 3 Skin: intact, normal color, warm/dry Core Measures ACS in differential dx? Yes CVA/TIA Diagnosis No Sepsis Present: No Sepsis Focused Exam Completed? No (Hayley IRVIN,Patito Reyes) Progress Differential Diagnosis: asthma, AMI, CHF, COPD, pulmonary embolism, pneumonia, unstable angina Diagnostic Imaging: Viewed by Me: Radiology Read. Discussed w/RAD: Radiology Read. Radiology Impression: PATIENT: ORLIN FERNANDEZ PRESENT AGE: 62 PATIENT ACCOUNT NO: [id number] : 57 LOCATION: [facility] ORDERING PHYSICIAN: Patito IRVIN SERVICE DATE: 11/20/171326 EXAM TYPE: RAD - XRY-CHEST XRAY, TWO VIEWS EXAMINATION: XR CHEST CLINICAL INFORMATION: Dyspnea. Congestion. COMPARISON: Chest x-ray 09/24/2017 TECHNIQUE: 2 views of the chest were obtained. FINDINGS: There are small to moderate volume bilateral pleural effusions blunting the posterior costophrenic angles. The central hilar vessels are mildly prominent without overt pulmonary edema. No focal dense consolidation. The heart size is enlarged. Cardiomediastinal contours remain unchanged. Compared to the chest x-ray of 09/24/2017 the pulmonary vasculature congestion is mildly worse on today's exam. IMPRESSION: Mild central vascular congestion without overt pulmonary edema. There are bilateral pleural effusions. DICTATED BY: Ja Byrnes MD DATE/TIME DICTATED:11/20/171507 CHARGE MANAGER :RAD.POWER DATE/TIME TRANSCRIBED:11/20/17 / 1508 CONFIDENTIAL, DO NOT COPY WITHOUT APPROPRIATE AUTHORIZATION. <Electronically signed in Other Vendor System> SIGNED BY: Fitz WILLIAMSON,Ja 11/20/17 1513 Initial ED EKG: sinus rhythm @65bpm, nonspecific ST changes Prior EKG: unchanged (09/22/17) (Hayley IRVIN,Patito Reyes) Plan of Care: Orders Procedure Date/time Status Consistent Carbohydrate 1 11/21 B Active CHF Diet 11/20 D Complete Misc Message 11/20 173 Active ED Holding Orders 11/20 1739 Active Admit to inpatient 11/20 1739 Active Vital Signs 11/20 173 Active Code Status 11/20 173 Active Patient Data 11/20 1715 Active VENOUS BLOOD GAS 11/20 1711 Active TROPONIN LEVEL 11/20 1635 Active EKG 11/20 1635 Active TROPONIN LEVEL 11/20 1326 Complete COMPREHENSIVE METABOLIC PANEL 11/20 1326 Complete CBC WITHOUT DIFFERENTIAL 11/20 1326 Complete B-TYPE NATRIURETIC PEP (BNP) 11/20 1326 Complete EKG 11/20 1326 Active Current Medications Sig/Jannet Start time Last Medication Dose Stop Time Status Admin Furosemide 40 MG ONCE ONE 11/20 173 UNVr 11/20 (Lasix) 11/20 173 1737 Laboratory Tests 11/20/17 1333: Anion Gap 9, Estimated GFR 27 L, BUN/Creatinine Ratio 12.6, Glucose 125 H, Calcium 8.1 L, Total Bilirubin 0.3, AST 16, ALT 18, Alkaline Phosphatase 48, Troponin I < 0.01, Pfs-[id number]-Lxyjfywgpjl Pept 2620 H, Total Protein 6.4, Albumin 3.2 L, Globulin 3.2, Albumin/Globulin Ratio 1.0 L, CBC w Diff NO MAN DIFF REQ, RBC 3.68 L, MCV 96.0, MCH 30.2, MCHC 31.5 L, RDW 15.9 H, MPV 7.4, Gran % 82.5 H, Lymphocytes % 7.7 L, Monocytes % 7.5, Eosinophils % 2.0, Basophils % 0.3, Absolute Granulocytes 5.4, Absolute Lymphocytes 0.5 L, Absolute Monocytes 0.5, Absolute Eosinophils 0.1, Absolute Basophils 0 Chest x-ray shows worsening pulmonary vascular congestion and bilateral pleural effusions. Patient given 40 mg IV Lasix here in the emergency department. Her EKG is stable compared to previous studies. Troponin enzymes negative. Patient has desaturation of O2 sat when supplemental oxygen is removed. O2 saturation drops to 80's while patient is at rest on room air. Patient likely with CHF exacerbation given her chest x-ray, pedal edema, hypoxia. Patient to be admitted to telemetry for supplemental oxygen, IV Lasix, cardiology consult. Patient seen and evaluated by Dr. Bobby who agrees with this plan. Patient is becoming agitated with ER staff , refuses to sit in bed, refusing to use commode . Patient disconnects herself from monitors and threatens to leave the emergency department. I informed the patient at the wrist to leaving given her current clinical condition. Patient agrees to remain in the emergency department. Spoke with case management who recommend full admission. Spoke with hospitalist, Dr. Butler regarding telemetry admission. (Patito Ruby) (Diamante WILLIAMSON,Renato Dasilva) Departure Departure Disposition: STILL A PATIENT Condition: Stable Clinical Impression Primary Impression: CHF (congestive heart failure) Qualifiers: Heart failure type: unspecified Heart failure chronicity: acute Qualified Code: I50.9 - Heart failure, unspecified Secondary Impressions: Dyspnea Qualifiers: Dyspnea type: unspecified Qualified Code: R06.00 - Dyspnea, unspecified Hypoxia Referrals: Eduardo Beavers MD (PCP/Family) Departure Forms: Customer Survey General Discharge Information Admission Note Spoke With: Denise Butler MD Documentation of Exam: Documentation of any treatments & extenuating circumstances including Concerns Regarding Discharge (functional status, medication knowledge or non-compliance, living conditions, etc.) that warrant an admission rather than observation: [ Worsening CHF as seen on chest x-ray requiring IV Lasix, supplemental oxygen, cardiology consultation, telemetry monitoring, repeat EKGs and troponins, possible ABG given patient's combative behavior, patient is not O2 dependent at home and is requiring supplemental oxygen, desaturation of oxygen into 80's while at rest on room air, premature discharge medically unsafe] (Patito Ruby) PA/CYANIDE POT TENDER Co-Sign Statement Statement: ED Attending supervision documentation- [x] I saw and evaluated the patient. I have also reviewed all the pertinent lab results and diagnostic results. I agree with the findings and the plan of care as documented in the PA's/CYANIDE POT TENDER's documentation. Patient presents for evaluation of worsening shortness of breath. Physical examination reveals a comfortable appearing woman on a nasal cannula, in no acute respiratory distress. Patient has bilateral 1+ pitting edema of the lower extremities. [] I have reviewed the ED Record and agree with the PA's/CYANIDE POT TENDER's documentation. [] Additions or exceptions (if any) to the PAs/CYANIDE POT TENDER's note and plan are summarized below: [] (Diamante WILLIAMSON,Renato Dasilva) Critical Care Note Critical Care Note Critical Care Time: 30-74 min (Hayley IRVIN,Patito Reyes)
[2017-11-20 13:54] LABS: ABSOLUTE BASOPHIL COUNT 0 /CUMM (0.0-0.2); ABSOLUTE EOSINOPHIL COUNT 0.1 /CUMM (0.0-0.7); ABSOLUTE GRANULOCYTE CT 5.4 /CUMM (1.4-6.5); ABSOLUTE LYMPH COUNT 0.5 /CUMM (1.2-3.4); ABSOLUTE MONOCYTE COUNT 0.5 /CUMM (0.10-0.60); BASOPHIL % 0.3 % (0.0-2.0); GRANULOCYTE % 82.5 % (42.2-75.2); HEMATOCRIT 35.3 % (37-47); MEAN CORPUSCULAR HGB 30.2 PG (27.0-31.0); MEAN CORPUSCULAR HGB CONC 31.5 G/DL (33.0-37.0); MEAN PLATELET VOLUME 7.4 FL (7.4-10.4); PLATELET COUNT 329 /CUMM (130-400); RBC DISTRIBUTION WIDTH 15.9 % (11.5-14.5); RED BLOOD CELL CT 3.68 /CUMM (4.20-5.40); WHITE BLOOD CELL COUNT 6.6 /CUMM (4.8-10.8)
--- NOTE | 2017-11-20 15:13 | RADIOLOGY REPORT ---
EXAMINATION: XR CHEST CLINICAL INFORMATION: Dyspnea. Congestion. COMPARISON: Chest x-ray 09/24/2017 TECHNIQUE: 2 views of the chest were obtained. FINDINGS: There are small to moderate volume bilateral pleural effusions blunting the posterior costophrenic angles. The central hilar vessels are mildly prominent without overt pulmonary edema. No focal dense consolidation. The heart size is enlarged. Cardiomediastinal contours remain unchanged. Compared to the chest x-ray of 09/24/2017 the pulmonary vasculature congestion is mildly worse on today's exam. IMPRESSION: Mild central vascular congestion without overt pulmonary edema. There are bilateral pleural effusions.
--- NOTE | 2017-11-20 17:25 | History & Physical ---
Jorgito WILLIAMSON,[facility] 11/20/17 0594: General Information and HPI MD Statement: I have seen and personally examined ORLIN FERNANDEZ and documented this H&P. The patient is a 62 year old F who presented with a patient stated chief complaint of [Dyspnea]. 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 Patient states she was not been able to sleep last night because of dyspnea. She was supposed to have an appoitment with Dr. Warren today. He called her this morning and after talking to her told her to go to the ER. States she uses 3 pillows at to sleep at noght and can not lie down flat because of shortness of breath. Also gets SOB afteralking couple of steps. She is supposed to follow up with the CHF clinic every week but goes there every other week(last visit was 2 weeks ago). Also she was advised by Dr. Jackman to double her dose of lasix x 1 week because she had a trip planned to [place]. Also reports worseing lower extremity edema which usually gets better with lasix but this time has been worsning despitebeing on lasix. Endorses an episode of chest pain on Sat, 4 /10 in intensity, non radiating,lasting for 30 min and resolved on its own. Also reports abdominal distension and her clothes has gotten tight recently. Checks her BP at home and usually runs normal. Denies any palpitaions, PND, recent cough, fever/chills, headaches, abdominal pain, nausea/vomiting, diarrhea, burning/pain with urination. Does report an episode of dark/black stools on sat. Allergies/Medications Allergies: Coded Allergies: No Known Allergies (09/01/15) Home Med list Albuterol Sulfate (Proair Hfa) 90 MCG HFA.AER.AD 2 PUF INH Q4 BREATHING PROBLEMS Albuterol Sulfate 2.5 MG/3 ML (0.083 %) VIAL.NEB 3 ML INH Q4-6 PRN PRN SHORTNESS OF BREATH . Amlodipine Besylate (Norvasc) 10 MG TABLET 10 MG PO DAILY blood pressure .. Aspirin (Ecotrin*) 81 MG TABLET.DR 1 TAB PO DAILY HEART HEALTH Carvedilol 25 MG TABLET 25 MG PO BID blood pressure .. Epoetin Elia (Procrit) (Unknown Strength) VIAL (Unknown Dose) QTUES ANEMIA ( Reported) Fenofibrate (Tricor) 48 MG TABLET 1 TAB PO DAILY CHOLESTEROL Ferrous Sulfate 325 MG (65 MG IRON) TABLET.DR 325 MG PO BID Iron Def Anemia take 1 tab twice a day. Fluticasone/Salmeterol (Advair 250-50 Diskus) 250 MCG-50 MCG/DOSE BLST.W.DEV 1 PUF INH BID BREATHING PROBLEMS Furosemide (Lasix) 40 MG TABLET 1 TAB PO DAILY WATER RETENTION Hydralazine HCl 100 MG TABLET 1 TAB PO TID BLOOD PRESSURE take 1 tab three times a day.. Hydroxyzine Hydrochloride (Atarax) 25 MG TABLET 1 TAB PO BID UNKNOWN ( Reported) Insulin Aspart (Novolog) 100 UNIT/ML VIAL 0 UNITS SC TIDAC diabetes sugar unit <150 0 151-200 4 201-250 6 251-300 8 301-350 10 351-400 12 >400 14, call Insulin Detemir (Levemir) 100 UNIT/ML VIAL 24 UNITS SC QHS DM (Reported) Mirtazapine (Unknown Strength) TABLET (Unknown Dose) UNKNOWN (Reported) Pantoprazole Sodium (Protonix) 40 MG TABLET.DR 1 TAB PO DAILY ACID REFLUX Pravastatin Sodium (Pravachol) 40 MG TABLET 1 TAB PO DAILY CHOLESTEROL Pregabalin (Lyrica) 50 MG CAPSULE 1 CAP PO TID PAIN (Reported) Trazodone HCl 150 MG TABLET 1 TAB PO QPM SLEEP (Reported) Past History Travel History Traveled to [place] past 21 day No Medical History Neurological: NONE EENT: cataracts Cardiovascular: CHF, hypertension, hyperlipidemia Respiratory: COPD, pneumonia Gastrointestinal: GERD, iron deficiency anemia chronic, intermittent diarrhea Hepatic: cholecystitis, hepatitis C Renal: chronic kidney disease Musculoskeletal: falls, osteoporosis Psychiatric: NONE Endocrine: diabetes Blood Disorders: anemia Cancer(s): NONE 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 Home Who Do You Live With? child Services at Home: [facility] Smoking Status: Current Everyday Smoker ETOH Use: occasional use Illicit Drug Use: denies illicit drug use Functional Ability ADLs Independent: dressing, eating, toileting, bathing. Ambulation: independent, cane Review of Systems Review of Systems Constitutional: Reports: no symptoms. EENTM: Reports: no symptoms. Cardiovascular: Reports: chest pain, orthopena, peripheral edema. Respiratory: Reports: short of breath. GI: Reports: no symptoms. Genitourinary: Reports: no symptoms. Musculoskeletal: Reports: no symptoms. Skin: Reports: no symptoms. Neurological/Psychological: Reports: no symptoms. Hematologic/Endocrine: Reports: no symptoms. Immunologic/Allergic: Reports: no symptoms. All Other Systems: Reviewed and Negative Exam & Diagnostic Data Last 24 Hrs of Vital Signs/I&O Vital Signs Date Time Temp Pulse Resp B/P B/P Pulse O2 O2 Flow FiO2 Mean Ox Delivery Rate 11/20 1914 170/80 11/20 1829 97.5 72 18 165/70 94 Nasal 2.0L Cannula 11/20 1655 66 24 180/80 79 Room Air Room Air 11/20 1446 98.2 67 24 186/84 97 Nasal 2.0L Cannula 11/20 1314 96 Nasal 2.0L Cannula 11/20 1306 97.9 68 22 202/84 96 Nasal 2.0L Cannula Intake & Output 11/20 1600 11/20 0800 11/20 0000 Intake Total Output Total Balance Patient 187 lb Weight Physical Exam General Appearance Alert, Oriented X3, Cooperative, No Acute Distress Skin No Rashes, No Breakdown HEENT Atraumatic, PERRLA, EOMI, dry mucous membranes Neck Supple, + JVD Cardiovascular Regular Rate, Normal S1, Normal S2 Lungs decreased breath sounds Abdomen Normal Bowel Sounds, Soft, No Tenderness Extremities No Clubbing, No Cyanosis, +2 pitting edema bilaterally Last 24 Hrs of Labs/Olu: Laboratory Tests 11/20/17 1333: Anion Gap 9, Estimated GFR 27 L, BUN/Creatinine Ratio 12.6, Glucose 125 H, Calcium 8.1 L, Total Bilirubin 0.3, AST 16, ALT 18, Alkaline Phosphatase 48, Troponin I < 0.01, Qnl-R-Gociwfvwrvi Pept 2620 H, Total Protein 6.4, Albumin 3.2 L, Globulin 3.2, Albumin/Globulin Ratio 1.0 L, CBC w Diff NO MAN DIFF REQ, RBC 3.68 L, MCV 96.0, MCH 30.2, MCHC 31.5 L, RDW 15.9 H, MPV 7.4, Gran % 82.5 H, Lymphocytes % 7.7 L, Monocytes % 7.5, Eosinophils % 2.0, Basophils % 0.3, Absolute Granulocytes 5.4, Absolute Lymphocytes 0.5 L, Absolute Monocytes 0.5, Absolute Eosinophils 0.1, Absolute Basophils 0 Diagnostic Data EKG Results Normal Sinus Rhythm CXR Results IMPRESSION: Mild central vascular congestion without overt pulmonary edema. There are bilateral pleural effusions. Assessment/Plan Assessment: 62 year old female with past medical history significant for COPD,MITZY, HLD, HFpEF, DM, osteoporosis, iron deficiency anemia, CKD Stage 4 recently admitted for GI bleed and symptomatic anemia underwent push enteroscopy 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 On admission was found to be in CHF exacerbation with an elevated Pro-BNP, CXR showed pulmonary vascular congestion and had elevated JVD with +2 pitting edema on examination. Also had a blood pressure of 202/84, which could be responsible for the exacerbation or vice versa. Problem list; 1. CHF exacerbation 2. Hypertensive urgency 3. Chronic medical conditions - Will admit to telemetry floor. - Patient already recieved IV laisx 40mg x 2, will start her on IV lasix 40mg BID. Reasses in am and titrate up as needed. - Strict ins and outs and daily weight. - Monitor Cr and electrolytes while on laisx - Trop and EKG x 3 to r/o ACS. - Recent echo in showed normal EF. No need for repeat echo. - cardiology consult. - Recieved IV hydralazine 10mg x 1 for HTN. Will also continue her home BP meds. - Continue rest of home medications. DVT prophylaxis; S/C heparin and ALPS Patient is Full code. As Ranked By This Provider Problem List: 1. CHF (congestive heart failure) Qualifiers Heart failure type: unspecified Heart failure chronicity: acute Qualified Code: I50.9 - Heart failure, unspecified 2. Hypertensive urgency Core Measures/Misc (03/11) Acute Coronary Syndrome ACS Diagnosis: No Congestive Heart Failure Congestive Heart Failure Diagnosis Yes Cerebrovascular Accident CVA/TIA Diagnosis: No VTE (View Protocol) VTE Risk Factors Age>40 No Mechanical VTE Prophylaxis d/t N/A MechProphylax Ordered No VTE Pharm Prophylaxis d/t NA PharmProphylax ordered Sepsis (View protocol) Sepsis Present: No If YES complete Sepsis Event Note If YES complete Sepsis Event Note Lowell Kamara 11/20/171999: Core Measures/Misc (03/11) Sepsis (View protocol) If YES complete Sepsis Event Note If YES complete Sepsis Event Note Resident Review Statement Resident Statement: examined this patient, discussed with architect internship, agreed with architect internship, reviewed EMR data (avail) Other Findings: Ms. Fernandez is a 62 year old female with a significant PMH of HFpEF (may 2017 ) follows up with Dr. Jackman, hypertension, diabetes, hyperlipidemia, chronic kidney disease followed by Dr. 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 Hdz. She presents to the hospital with complaints of dyspnea. She also complains of increased lower extremity swelling as well as abdominal distention. Morro has been compliant with all of her medications. She notes that she had been taking 40mg of lasix daily, and was told she was instructed to take 80mg by Dr. Jackman last week as she was traveling, which she did. She had been following up with the CHF clinic receiving IV Lasix. She states that she was supposed to be following up once weekly however she has been going biweekly. Regarding her diet, she states that she did have a picnic celebrating however she states that she was compliant only having half a hamburger and a hot dog. She does admit to increasing her soda intake. Aside from her dyspnea, she denies any significant symptoms today and she does note that she had an intermittent episode of chest pain 4 out of 10 over the weekend which resolved spontaneously and she thought nothing of. The remaining review of systems as dictated above. Vitals on admission blood pressure 202/84 saturating 96% on 2 L, respiratory rate 22, pulse rate 68, temperature 97.9. Blood pressure did come down to 165/ 70 after Lasix. The patient notes she had not taken her blood pressure medications fully at this morning. Physical exam as dictated above with note of JVD to the sternal angle, S1,S2+ no S3; no significant rales appreciated on auscultation of the lungs; abdominal distension; and +2 lower extremity edema to the distal thigh. Labs as dictated above, H&H 11.1/35.3, BUNs/creatinine 24/1.9 [at baseline], BNP 2620. Chest x-ray showed bilateral pleural effusions with mild central venous congestion. Problem list/assessment and plan Acute decompensated congestive heart failure * Most likely secondary to diet noncompliance as well as missing her follow-up appointments at the CHF clinic for IV Lasix. * We will admit her to telemetry for diuresis with IV medications, strict in's/ outs and daily weights. * Start 40 mg IV Lasix twice per day. Heart healthy diet with 2 g sodium restriction. * We will continue her other cardiac meds for her high blood pressure including amlodipine, hydralazine, and carvedilol. * Plan to give a dose of IV hydralazine now x1, 10mg. * I do not feel the patient is having a CHF exacerbation secondary to ischemia and cardiogenic shock. At this moment, no need to repeat an echocardiogram. * We will inform Dr. Jackman of the patient's admission tomorrow morning. Chronic medical problems * We will hold the patient's by mouth anti-hyperglycemics and start a NovoLog sliding scale, in addition to the patient's home Levemir, 24 units nightly. * Additionally, we will give the patient's epo dose which is due today, 1500 units SC. * Otherwise, we will continue the patient's home medications, as ordered with no changes. Full code Heart healthy diet with salt restriction Heparin for DVT prophylaxis Pain pathway as ordered Marco A WILLIAMSON, [facility] 11/20/17 2142: Core Measures/Misc (03/11) Sepsis (View protocol) If YES complete Sepsis Event Note If YES complete Sepsis Event Note Attending MD Review Statement Attending Statement Attending MD Statement: examined this patient, discuss w/resident/PA/GM, agreed w/resident/PA/GM, reviewed images, amended to note Attending Assessment/Plan: 62 yo F with h/o DM, HTN, HfpEF, COPD, LAINE, CKD stage 4 secondary to diabetic nephropathy, jejunal AVM s/p ablation, Hep C, is here for evaluation of worsening exertional dyspnea and lower extremity edema. C/o orthopnea+. Patient follows with Dr. Jackman and is taking lasix 40 mg daily. She goes to the CHF clinic once every 2 weeks for IV lasix, her last dose was 2 weeks ago. She is compliant with her lasix and was recently asked to double up the dose as she was going to eating out on memorial weekend. She is noncompliant with dietary restrictions, drinks a lot of soda and ice tea. Per EMS, her sats were 78% on RA. Vitals in the ER: afebrile, HR 60-80's, BP 202 /84 --> 184/84, sats96% on 2L. Exam as above. Labs: BUN 24, Creat 1.9 (baseline) , glucose 125, Ca 8.1, trop neg. ProBNP 2620. CXR: Small to moderate volume bilateral pleural effusions, mild central vascular congestion+. EKG: sinus rhythm, no acute changes, Qtc 475. Echo (2017): EF > 65%, mild pulmonary hypertension. Assessment and plan: 1. Acute hypoxic respiratory failure 2. Acute exacerbation of chronic heart failure with preserved EF 3. Noncompliant with diet and CHF clinic 4. Hypertensive urgency 5. CKD stage 4 6. Type 2 diabetes with nephropathy 7. Episode of dark stool while on iron supplements - Admit to Telemetry - Strict I/O's, daily weights - IV lasix 40 BID - Serial EKG and troponin - Obtain Echo - Cardio consult Dr. Jackman - Check TSH and free t4 - Patient missed her afternoon BP meds, resume hydralazine, amlodipine and coreg - Monitor BP to keep SBP ~ 140-150 - Diabetes management - Continue Epo once a week patient due for today - Guaiac all stools, monitor H and H, goal Hb > 8.0 DVT ppx Hep SC. Full code.
[2017-11-20] MEDS ORDERED: LASIX40 M1 PO (18:56)
[2017-11-20 19:50] VITALS: BP 174/68
--- NOTE | 2017-11-20 21:44 | Admission Certification ---
Admission Certification Certification Statement - As attending physician, I certify that at the time of - admission, based on clinical presentation, severity of - symptoms, need for further diagnostic testing and - therapeutic interventions, and risk of adverse outcomes - without in-hospital treatment, in my clinical assessment, - this patient requires an acute hospital stay for a minimum - of two nights or longer. I have also considered psychsocial - factors such as support system, advanced age, financial - issues, cognitive issues, and failed out-patient treatments, - past re-admission history, safety of patient, and lack of - compliance as applicable. Specific rationale supporting this admission is: Acute hypoxic respiratory failure, acute exacerbation of chronic heart failure with preserved ejection fraction.
[2017-11-20 22:00] VITALS: BP 184/84
[2017-11-21] VITALS (7 sets, daily range): BP systolic 136–160; BP diastolic 44–72
--- NOTE | 2017-11-21 07:09 | PN- Housestaff ---
Jorgito WILLIAMSON,[facility] 11/21/17 0709: Subjective Follow-up For: 1. CHF exacerbation 2. Hypertensive urgency 3. Chronic medical conditions Tele-Events Since Last Visit: NSR HR 63-76 Subjective: Patient says she feels tired as she was unable to sleep well last night bacuse of lower extremity pain and difficulty breathing. Denies any chest pain or palpitations. Review of Systems Constitutional: Reports: malaise. Objective Last 24 Hrs of Vital Signs/I&O Vital Signs Date Time Temp Pulse Resp B/P B/P Pulse O2 O2 Flow FiO2 Mean Ox Delivery Rate 11/21 1337 98.3 65 18 136/70 93 Nasal Cannula 11/21 1336 67 160/70 11/21 1333 63 160/70 11/21 0952 63 160/72 11/21 0952 63 160/72 11/21 0951 63 160/72 11/21 0951 160/72 11/21 0800 Nasal 2.0L Cannula 11/21 0710 98.2 63 20 140/48 95 Room Air 11/21 0021 140/44 11/21 0000 95 Nasal 2.0L Cannula 11/20 2200 99.2 79 18 184/84 93 Nasal Cannula 11/20 2127 80 20 184/84 11/20 2126 80 20 184/84 11/20 2124 80 20 184/84 11/20 2000 Nasal 2.0L Cannula 11/20 1950 98.3 77 16 174/68 94 Nasal 2.0L Cannula 11/20 1914 170/80 11/20 1829 97.5 72 18 165/70 94 Nasal 2.0L Cannula 11/20 1655 66 24 180/80 79 Room Air Room Air Intake & Output 11/21 1600 11/21 0800 11/21 0000 Intake Total 600 200 360 Output Total 600 Balance 600 -400 360 Intake, Oral 600 200 360 Output, Urine 600 Patient 193 lb Weight Weight Bed scale Measurement Method Physical Exam General Appearance: Alert, Oriented X3, Cooperative Skin: No Rashes, No Breakdown Cardiovascular: Regular Rate, Normal S1, Normal S2 Assessment/Plan Assessment: 62 year old female with past medical history significant for COPD,MITZY, HLD, HFpEF, DM, osteoporosis, iron deficiency anemia, CKD Stage 4 recently admitted for GI bleed and symptomatic anemia underwent push enteroscopy 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 On admission was found to be in CHF exacerbation with an elevated Pro-BNP, CXR showed pulmonary vascular congestion and had elevated JVD with +2 pitting edema on examination. Also had a blood pressure of 202/84, which could be responsible for the exacerbation or vice versa. Problem list; 1. CHF exacerbation 2. Hypertensive urgency - resolved 3. Chronic medical conditions - Continue monitoring on telemetry floor. - Continue IV lasix 40 BID. - Strict ins and outs and daily weight. - Monitor Cr and electrolytes while on laisx - Repeat echo. - Repeat CXR in am. - Appreciate cardiology recommendations. - BP well controlled,will continue her home BP meds. - Continue rest of home medications. DVT prophylaxis; S/C heparin and ALPS Patient is Full code. Problem List: 1. CHF (congestive heart failure) Pain Ratin Pain Location: Left lower ext Pain Goal: Remain pain free Pain Plan: Pain pathway Tomorrow's Labs & Rationales: BEP(On IV Lasix) Denise Butler MD 11/21/17 1510: Attending MD Review Statement Attending Statement Attending MD Statement: examined this patient, discuss w/resident/PA/AMERICAN INDIAN POLICY SPECIALIST, agreed w/resident/PA/AMERICAN INDIAN POLICY SPECIALIST, reviewed EMR data (avail) Attending Assessment/Plan: 62F PMH DM, HTN, HfpEF, COPD, LAINE, CKD stage 4 secondary to diabetic nephropathy , jejunal AVM s/p ablation, Hep C admitted for worsening dyspnea on exertion and with rest, with b/l LE edema and pulmonary edema on CXR. Started on IV Lasix on admission. Patient is still short of breath and having orthopnea. She is hemodynamically stable. 1. Acute on chronic diastolic CHF Plan - Continue on telemetry - IV Lasix - I/O, daily weights - Cardiology consult - Continue home meds - DVT PPx
--- NOTE | 2017-11-21 10:05 | Cons- Cardiology ---
General Information and HPI Consulting Request Date of Consult: 11/21/17 Requested By: Denise Butler MD Reason for Consult: Recurrent congestive heart failure Source of Information: patient, old records Exam Limitations: no limitations History of Present Illness: Orlin Fernandez is a 62-year-old female who has diabetes and hypertension and CKD and diabetic neuropathy. The patient has a history of a prolonged illness in [facility] in 2016. This according to the records was a hospitalization from 08/03/2015 to 08/17/2015. She apparently presented with shortness of breath, leg edema, and right upper quadrant pain. She was treated for CHF and pneumonia. She had iron deficiency anemia. She had acute cholecystitis. She ended up with a laparoscopic cholecystectomy on 08/06/2015 with the finding of a gangrenous gallbladder. She developed ADDY due to sepsis. She was diuresed with Lasix. She was put on long-term antifungal antibiotics. She apparently has not had any further issues with congestive heart failure. It does not appear that she had cardiac catheterization or stress testing at that time or since then. An echocardiogram showed mild LVH with normal LV systolic function, abnormal diastolic function, thickening of th AV, mild to moderate MR, mildly dilated LA, PAP borderline elevated, dilated IVC. Since her initial visit she has been hospitalized several times. The first time was in December on 01/19/17 when she presented with severe hypertension, shortness of breath, and acute renal failure. Echocardiogram was done and showed moderate LVH with normal ejection fraction, right ventricular systolic pressure at 40 mmHg. She was in the hospital for a number of days and discharged. She was readmitted on 03/15/2017 again with hypertension, shortness of breath, and significant edema. She had significant pulmonary congestion. Her medications were adjusted. Her creatinine olga to 5.2 probably due to contrast induced nephropathy, and subsequently came down to the 1.5 range on discharge. It was thought that some of her issues were due to medication noncompliance. She also probably had GI bleeding with guaiac positive stools and she was given 3 units of blood. She was recommended outpatient GI followup. Her troponins were negative on these admissions. Her medications were adjusted to hydralazine 100 mg 3 times a day, lisinopril 40 mg daily, Lasix 40 mg daily, fenofibrate, pravastatin 40 mg daily, aspirin, and her diabetic regimen. She was readmitted to [place] on 06/04/2017 again with shortness of breath and worsening lower extremity edema which occurred fairly quickly. She was also found to be significantly anemic with a hemoglobin of 6.6 and a hematocrit of 21. Troponins was negative. She diuresed fairly well and she did well with this except that her BUN and creatinine increased to 43 and 2.2 on the third day. At that time, we recommended that she stay to monitor this a little bit better, but she insisted on going home. Subsequently since her last visit in May she has been admitted several times again to the hospital, mostly with anemia and occult GI bleeding, which finally has apparently been resolved after cautery of AVMs. She saw Dr. Hdz from GI recently, who found her to be stable from a GI standpoint. She is maintained on iron. She has had AVMs cauterized. The last time I saw her in consultation was in June 2017, when she came in with anemia and congestive heart failure, and again she required transfusions and diuresis. I saw her in the office just about 1 month ago when I thought she was stable. However since that time I received several phone calls from visiting nurse who were were concerned that she has been gaining weight and having increasing edema. They urged her to go to the emergency room or come back to the office but apparently the patient refused. The patient apparently had an appointment with the CHF clinic yesterday but was so short of breath she was advised to come to the emergency room instead. She also is complaining of persistent edema. She has not had any chest pains. So far evaluation shows negative troponins. She has BUN of 24 and creatinine of 1.9. This is about her baseline. Her BNP was elevated to 2420. She is on Lasix 40 mg twice daily. She appears to be diuresing. She is more comfortable today. Allergies/Medications Allergies: Coded Allergies: No Known Allergies (09/01/15) Home Med List: Albuterol Sulfate (Proair Hfa) 90 MCG HFA.AER.AD 2 PUF INH Q4 BREATHING PROBLEMS Albuterol Sulfate 2.5 MG/3 ML (0.083 %) VIAL.NEB 3 ML INH Q4-6 PRN PRN SHORTNESS OF BREATH . Amlodipine Besylate (Norvasc) 10 MG TABLET 10 MG PO DAILY blood pressure .. Aspirin (Ecotrin*) 81 MG TABLET. 1 TAB PO DAILY HEART HEALTH Carvedilol 25 MG TABLET 25 MG PO BID blood pressure .. Epoetin Elia (Procrit) (Unknown Strength) VIAL (Unknown Dose) QTUES ANEMIA ( Reported) Fenofibrate (Tricor) 48 MG TABLET 1 TAB PO DAILY CHOLESTEROL Ferrous Sulfate 325 MG (65 MG IRON) TABLET.DR 325 MG PO BID Iron Def Anemia take 1 tab twice a day. Fluticasone/Salmeterol (Advair 250-50 Diskus) 250 MCG-50 MCG/DOSE BLST.W.DEV 1 PUF INH BID BREATHING PROBLEMS Furosemide (Lasix) 40 MG TABLET 1 TAB PO DAILY WATER RETENTION Hydralazine HCl 100 MG TABLET 1 TAB PO TID BLOOD PRESSURE take 1 tab three times a day.. Hydroxyzine Hydrochloride (Atarax) 25 MG TABLET 1 TAB PO BID UNKNOWN ( Reported) Insulin Aspart (Novolog) 100 UNIT/ML VIAL 0 UNITS SC TIDAC diabetes sugar unit <150 0 151-200 4 201-250 6 251-300 8 301-350 10 351-400 12 >400 14, call Insulin Detemir (Levemir) 100 UNIT/ML VIAL 24 UNITS SC QHS DM (Reported) Mirtazapine (Unknown Strength) TABLET (Unknown Dose) UNKNOWN (Reported) Pantoprazole Sodium (Protonix) 40 MG TABLET. 1 TAB PO DAILY ACID REFLUX Pravastatin Sodium (Pravachol) 40 MG TABLET 1 TAB PO DAILY CHOLESTEROL Pregabalin (Lyrica) 50 MG CAPSULE 1 CAP PO TID PAIN (Reported) Trazodone HCl 150 MG TABLET 1 TAB PO QPM SLEEP (Reported) Current Medications: Current Medications Sig/Jannet Start time Last Medication Dose Route Stop Time Status Admin Acetaminophen 325 MG Q6P PRN 11/20 1899 AC PO Acetaminophen 650 MG Q6P PRN 11/20 1899 AC PO Albuterol Sulfate 2 PUF Q4 11/20 2199 AC 11/21 INH 0952 Albuterol Sulfate 3 ML Q4-6 PRN PRN 11/20 1844 AC INH Amlodipine Besylate 0 .STK-MED ONE 11/21 1931 DC PO Amlodipine Besylate 10 MG DAILY 11/21 1843 AC 11/21 PO 0952 Aspirin 0 .STK-MED ONE 11/21 1931 DC PO Aspirin Buffered 81 MG DAILY 11/21 1843 AC 11/21 PO 0952 Budesonide/ 2 PUF BID 11/20 2099 AC 11/21 Formoterol Fumarate INH 0952 Carvedilol 25 MG BID 11/20 2099 AC 11/21 PO 0952 Epoetin Elia 1,500 UNIT QTUES 11/20 1845 AC 11/20 [place] 2144 Fenofibrate 48 MG DAILY 11/21 0900 AC 11/21 PO 0952 Ferrous Sulfate 325 MG BID 11/20 2099 AC 11/21 PO 0952 Furosemide 60 MG 7:30 AM, & 4:30 PM 11/21 07 DC IV Furosemide 40 MG 7:30 AM, & 4:30 PM 11/21 0730 AC 11/21 IV 0629 Furosemide 40 MG ONCE ONE 11/20 1730 DC 11/20 IV 11/20 1731 1737 Furosemide 0 .STK-MED ONE 11/20 1634 DC IV Furosemide 40 MG ONCE ONE 11/20 1545 DC 11/20 IV 11/20 1546 1634 Heparin Sodium 5,000 UNIT Q8 11/20 2199 AC 11/21 (Porcine) SC 0628 Hydralazine HCl 100 MG TID 11/20 2099 AC 11/21 PO 0951 Hydralazine HCl 0 .STK-MED ONE 11/20 1932 DC .ROUTE Hydralazine HCl 10 MG ONCE ONE 11/20 191 DC IV 11/21 1915 Hydroxyzine HCl 25 MG BID 11/20 2100 AC 11/21 PO 0951 Insulin Aspart 0 TIDAC 11/21 0800 AC SC Insulin Detemir 24 UNITS AT BEDTIME 11/20 2099 AC 11/20 [place] 2128 Omeprazole 40 MG DAILY AC 11/21 0700 AC 11/21 PO 0629 Oxycodone HCl 5 MG Q6P PRN 11/20 1900 AC 11/21 PO 0634 Pravastatin Sodium 40 MG 1700 11/21 1700 AC PO Pregabalin 50 MG TID 11/20 2099 AC 11/21 PO 0955 Trazodone HCl 150 MG AT BEDTIME 11/20 2099 AC 11/20 PO 2127 Review of Systems Review of Systems: No other complaints in the review of systems Past History Travel History Traveled to [place] past 21 day No Medical History Blood Transfusion Hx: Yes Neurological: NONE EENT: cataracts Cardiovascular: CHF, hypertension, hyperlipidemia Respiratory: COPD, pneumonia Gastrointestinal: GERD, iron deficiency anemia chronic, intermittent diarrhea Hepatic: cholecystitis, hepatitis C Renal: chronic kidney disease Musculoskeletal: falls, osteoporosis Psychiatric: NONE Endocrine: diabetes Blood Disorders: anemia Cancer(s): NONE 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 Home Who Do You Live With? child Services at Home: [facility] Smoking Status: Current Everyday Smoker ETOH Use: occasional use Illicit Drug Use: denies illicit drug use Functional Ability ADLs Independent: dressing, eating, toileting, bathing. Ambulation: independent, cane Exam & Diagnostic Data Vital Signs and I&O Vital Signs Date Time Temp Pulse Resp B/P B/P Pulse O2 O2 Flow FiO2 Mean Ox Delivery Rate 11/21 0952 63 160/72 11/21 0952 63 160/72 11/21 0951 63 160/72 11/21 0951 160/72 11/21 0710 98.2 63 20 140/48 95 Room Air 11/21 0021 140/44 11/21 0000 95 Nasal 2.0L Cannula 11/20 2200 99.2 79 18 184/84 93 Nasal Cannula 11/20 2127 80 20 184/84 11/20 2126 80 20 184/84 11/20 2124 80 20 184/84 11/20 2000 Nasal 2.0L Cannula 11/20 1950 98.3 77 16 174/68 94 Nasal 2.0L Cannula 11/20 1914 170/80 11/20 1829 97.5 72 18 165/70 94 Nasal 2.0L Cannula 11/20 1655 66 24 180/80 79 Room Air Room Air 11/20 1446 98.2 67 24 186/84 97 Nasal 2.0L Cannula 11/20 1314 96 Nasal 2.0L Cannula 11/20 1306 97.9 68 22 202/84 96 Nasal 2.0L Cannula Intake & Output 11/21 1600 11/21 0811/21 0000 11/20 1600 11/20 0000 Intake Total 200 360 Output Total 600 Balance -400 360 Intake, Oral 200 360 Output, Urine 600 Patient 193 lb 187 lb Weight Weight Bed scale Measurement Method Physical Exam: On physical she is resting quietly in no distress HEENT exam normal Neck veins not distended Chest is clear Heart regular rhythm, no murmurs Extremities 1+ edema Labs/Olu Results: Laboratory Tests 11/20 11/20 2225 1333 Chemistry Sodium (137 - 145 mmol/L) 141 Potassium (3.5 - 5.1 mmol/L) 4.7 Chloride (98 - 107 mmol/L) 106 Carbon Dioxide (22 - 30 mmol/L) 26 Anion Gap (5 - 16) 9 BUN (7 - 17 mg/dL) 24 H Creatinine (0.5 - 1.0 mg/dL) 1.9 H Estimated GFR (>60 ml/min) 27 L BUN/Creatinine Ratio (7 - 25 %) 12.6 Glucose (65 - 99 mg/dL) 125 H Calcium (8.4 - 10.2 mg/dL) 8.1 L Total Bilirubin (0.2 - 1.3 mg/dL) 0.3 AST (14 - 36 U/L) 16 ALT (9 - 52 U/L) 18 Alkaline Phosphatase (<127 U/L) 48 Troponin I (< 0.11 ng/ml) < 0.01 < 0.01 Xiv-[id number]-Vdykvwxvoib Pept (<125 pg/mL) 2620 H Total Protein (6.3 - 8.2 g/dL) 6.4 Albumin (3.5 - 5.0 g/dL) 3.2 L Globulin (1.9 - 4.2 gm/dL) 3.2 Albumin/Globulin Ratio (1.1 - 2.2 %) 1.0 L Hematology CBC w Diff NO MAN DIFF REQ WBC (4.8 - 10.8 /CUMM) 6.6 RBC (4.20 - 5.40 /CUMM) 3.68 L Hgb (12.0 - 16.0 G/DL) 11.1 L Hct (37 - 47 %) 35.3 L MCV (81.0 - 99.0 FL) 96.0 MCH (27.0 - 31.0 PG) 30.2 MCHC (33.0 - 37.0 G/DL) 31.5 L RDW (11.5 - 14.5 %) 15.9 H Plt Count (130 - 400 /CUMM) 329 MPV (7.4 - 10.4 FL) 7.4 Gran % (42.2 - 75.2 %) 82.5 H Lymphocytes % (20.5 - 51.1 %) 7.7 L Monocytes % (1.7 - 9.3 %) 7.5 Eosinophils % (0 - 5 %) 2.0 Basophils % (0.0 - 2.0 %) 0.3 Absolute Granulocytes (1.4 - 6.5 /CUMM) 5.4 Absolute Lymphocytes (1.2 - 3.4 /CUMM) 0.5 L Absolute Monocytes (0.10 - 0.60 /CUMM) 0.5 Absolute Eosinophils (0.0 - 0.7 /CUMM) 0.1 Absolute Basophils (0.0 - 0.2 /CUMM) 0 Diagnostic Data EKG Results EKG on admission shows sinus rhythm rate of 65, possible left atrial enlargement otherwise normal. This is similar to previous tracings CXR Results PATIENT: ORLIN FERNANDEZ PRESENT AGE: 62 PATIENT ACCOUNT NO: [id number] : 57 LOCATION: [facility] ORDERING PHYSICIAN: Patito IRVIN SERVICE DATE: 11/20/17 EXAM TYPE: RAD - XRY-CHEST XRAY, TWO VIEWS EXAMINATION: XR CHEST CLINICAL INFORMATION: Dyspnea. Congestion. COMPARISON: Chest x-ray 09/24/2017 TECHNIQUE: 2 views of the chest were obtained. FINDINGS: There are small to moderate volume bilateral pleural effusions blunting the posterior costophrenic angles. The central hilar vessels are mildly prominent without overt pulmonary edema. No focal dense consolidation. The heart size is enlarged. Cardiomediastinal contours remain unchanged. Compared to the chest x-ray of 09/24/2017 the pulmonary vasculature congestion is mildly worse on today's exam. IMPRESSION: Mild central vascular congestion without overt pulmonary edema. There are bilateral pleural effusions. DICTATED BY: Ja Byrnes MD DATE/TIME DICTATED:11/20/171507 ACTIVE DIRECTORY ADMINISTRATOR:NIKI DATE/TIME TRANSCRIBED:11/20/171507 CONFIDENTIAL, DO NOT COPY WITHOUT APPROPRIATE AUTHORIZATION. <Electronically signed in Other Vendor System> SIGNED BY: Ja Byrnes MD 11/20/17 2043 Assessment/Plan Assessment/Plan The patient is a 62-year-old female with recurrent fluid overload and congestive heart failure. This is most likely all diastolic in nature. There is no evidence of myocardial ischemia or infarction. Part of the problem is medication and follow-up non-compliance. I recommend continuing IV Lasix until her edema resolves and she is asymptomatic. I recommend a follow-up chest x-ray for tomorrow to compare with the initial one, which did show pulmonary vascular congestion. I recommend an echocardiogram since it has been almost 6 months since she had one. Consult Acknowledgment - Thank you for your consult request.
[2017-11-22 06:44] VITALS: BP 138/66
--- NOTE | 2017-11-22 07:49 | PN- Housestaff ---
Jorgito WILLIAMSON,[facility] 11/22/17 0749: Subjective Follow-up For: 1. CHF exacerbation Tele-Events Since Last Visit: NSR HR 65-70 Subjective: Patient continues to be SOB and remains on supplemental oxygen. Denies any chest pain or palpitaions. Review of Systems Constitutional: Reports: no symptoms. EENTM: Reports: no symptoms. Cardiovascular: Reports: orthopena, peripheral edema. Respiratory: Reports: short of breath. Gastrointestinal: Reports: no symptoms. Genitourinary: Reports: no symptoms. Musculoskeletal: Reports: no symptoms. Skin: Reports: no symptoms. Neurological/Psychological: Reports: no symptoms. Hematologic/Endocrine: Reports: no symptoms. Immunologic/Allergic: Reports: no symptoms. Objective Last 24 Hrs of Vital Signs/I&O Vital Signs Date Time Temp Pulse Resp B/P B/P Pulse O2 O2 Flow FiO2 Mean Ox Delivery Rate 11/22 0924 138/66 11/22 0923 98.4 70 20 138/66 11/22 0923 98.4 70 138/66 11/22 0800 95 Nasal 2.0L Cannula 11/22 0644 98.4 70 20 138/66 93 Nasal Cannula 11/22 0000 Nasal 2.0L Cannula 11/21 2253 99.2 70 18 138/66 93 Nasal Cannula 11/21 2144 70 138/66 11/21 2143 70 138/66 11/21 2142 99.2 70 138/66 Intake & Output 11/22 1600 11/22 0800 11/22 0000 Intake Total 440 674 Output Total 450 600 Balance -10 74 Intake, IV 14 Intake, Oral 440 660 Output, Urine 450 600 Physical Exam General Appearance: Alert, Oriented X3, Cooperative, No Acute Distress Skin: No Rashes, No Breakdown Cardiovascular: Regular Rate, Normal S1, Normal S2 Lungs: decreased breath sounds Abdomen: Normal Bowel Sounds, Soft, No Tenderness Extremities: No Clubbing, No Cyanosis, +2 pitting edema bilaterally Current Medications: Current Medications Sig/Jannet Start time Last Medication Dose Route Stop Time Status Admin Acetaminophen 325 MG Q6P PRN 11/200 AC PO Acetaminophen 650 MG Q6P PRN 11/20 190 AC PO Albuterol Sulfate 2 PUF Q4 11/20 2200 AC 11/22 INH 0905 Albuterol Sulfate 3 ML Q4-6 PRN PRN 05/29 1845 AC INH Amlodipine Besylate 10 MG DAILY 11/20 184 AC 11/22 PO 0923 Aspirin Buffered 81 MG DAILY 11/20 1844 AC 11/22 PO 0923 Budesonide/ 2 PUF BID 11/20 2099 AC 11/22 Formoterol Fumarate INH 0931 Carvedilol 25 MG BID 11/20 2100 AC 11/22 PO 0923 Epoetin Elia 1,500 UNIT QTUES 11/20 1845 AC 11/20 SC 2144 Fenofibrate 48 MG DAILY 11/21 0900 AC 11/22 PO 0923 Ferrous Sulfate 325 MG BID 11/20 2100 AC 11/22 PO 0923 Furosemide 40 MG 7:30 AM, & 4:30 PM 11/21 0730 DC 11/22 IV 0927 Heparin Sodium 5,000 UNIT Q8 11/20 2199 AC 11/22 (Porcine) SC 0601 Hydralazine HCl 100 MG TID 11/20 2100 AC 11/22 PO 0924 Hydroxyzine HCl 25 MG BID 11/20 2100 AC 11/22 PO 0923 Insulin Aspart 0 TIDAC 11/21 0800 AC 11/22 SC 1213 Insulin Detemir 24 UNITS AT BEDTIME 11/20 2100 11/21 SC 2143 Nicotine 14 MG DAILY 11/21 1118 AC 11/22 TOP 0924 Omeprazole 40 MG DAILY AC 11/21 0700 AC 11/22 PO 0924 Oxycodone HCl 5 MG Q6P PRN 11/20 1900 AC 11/22 PO 0600 Pravastatin Sodium 40 MG 1700 11/21 1700 AC 11/21 PO 1739 Pregabalin 50 MG TID 11/20 2099 AC 11/22 PO 0923 Trazodone HCl 150 MG AT BEDTIME 11/20 2100 AC 11/21 PO 2143 Last 24 Hrs of Lab/Olu Results Last 24 Hrs of Labs/Mics: Laboratory Tests 11/22/17 0620: Anion Gap 10, Estimated GFR 20 L, BUN/Creatinine Ratio 14.0 Assessment/Plan Assessment: 62 year old female with past medical history significant for COPD,MITZY, HLD, HFpEF, DM, osteoporosis, iron deficiency anemia, CKD Stage 4 recently admitted for GI bleed and symptomatic anemia underwent push enteroscopy 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 On admission was found to be in CHF exacerbation with an elevated Pro-BNP, CXR showed pulmonary vascular congestion and had elevated JVD with +2 pitting edema on examination. Also had a blood pressure of 202/84, which could be responsible for the exacerbation or vice versa. Problem list; 1. CHF exacerbation 2. Hypertensive urgency - resolved 3. Chronic medical conditions - Continue monitoring on telemetry floor. - Discontinue IV lasix given ADDY. - Repeat BEP in am. - Strict ins and outs and daily weight. - Nephrology consult - Echo. - Repeat CXR shows similar vascular congestion without overt pulmonary edema. - Appreciate cardiology recommendations. - BP well controlled,will continue her home BP meds. - Continue rest of home medications. DVT prophylaxis; S/C heparin and ALPS Patient is Full code. Problem List: 1. 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 Started on IV Lasix on admission. Patient is still short of breath and having orthopnea. She is hemodynamically stable. 1. Acute on chronic diastolic CHF Plan - Continue on telemetry - Hold IV Lasix - I/O, daily weights - Cardiology consult - Continue home meds - DVT PPx
--- NOTE | 2017-11-22 09:33 | RADIOLOGY REPORT ---
EXAMINATION: XR PORTABLE CHEST CLINICAL INFORMATION: Dyspnea. Congestive heart failure. COMPARISON: None. TECHNIQUE: An 85 degrees semierect portable view of the chest was obtained. FINDINGS: The lung andres are hypoexpanded bilaterally. The cardiac silhouette remains prominent. Is mild prominence of the central pulmonary vasculature. The interstitial markings are not significantly increased. The study redemonstrates right greater than left pleural effusions. The linear atelectasis at the left base has resolved. A linear opacity in the right mid chest is most consistent with the minor fissure. There are multiple monitor leads overlying the chest. IMPRESSION: 1. Hypoexpanded lungs bilaterally. 2. The cardiac silhouette is mildly prominent and the central pulmonary vasculature demonstrates pulmonary congestion. There is no overt interstitial edema 3. There are right greater than left small pleural effusions.
--- NOTE | 2017-11-22 13:24 | PN- Cardiology ---
Subjective Subjective: The patient is feeling better today. She states she has been ambulatory. She is still on oxygen. Objective Vital Signs and I&Os Vital Signs Date Time Temp Pulse Resp B/P B/P Pulse O2 O2 Flow FiO2 Mean Ox Delivery Rate 11/22 0924 138/66 11/22 0923 98.4 70 20 138/66 11/22 0923 98.4 70 138/66 11/22 0800 95 Nasal 2.0L Cannula 11/22 0644 98.4 70 20 138/66 93 Nasal Cannula 11/22 0000 Nasal 2.0L Cannula 11/21 2253 99.2 70 18 138/66 93 Nasal Cannula 11/21 2144 70 138/66 11/21 2143 70 138/66 11/21 2142 99.2 70 138/66 11/21 1337 98.3 65 18 136/70 93 Nasal Cannula 11/21 1336 67 160/70 11/21 1333 63 160/70 Intake & Output 11/22 1600 11/22 0800 11/22 0000 11/21 1600 11/21 0800 11/21 0000 Intake Total 440 674 600 200 360 Output Total 450 600 600 Balance -10 74 600 -400 360 Intake, IV 14 Intake, Oral 440 660 600 200 360 Output, Urine 450 600 600 Patient 193 lb Weight Weight Bed scale Measurement Method Physical Exam: She is in no distress Lungs are clear Heart is regular with no murmurs Extremities 1+ edema Current Medications: Current Medications Sig/Jannet Start time Last Medication Dose Route Stop Time Status Admin Acetaminophen 325 MG Q6P PRN 11/20 1900 AC PO Acetaminophen 650 MG Q6P PRN 11/20 1900 AC PO Albuterol Sulfate 2 PUF Q4 11/20 2200 AC 11/22 INH 0905 Albuterol Sulfate 3 ML Q4-6 PRN PRN 11/20 1844 AC INH Amlodipine Besylate 10 MG DAILY 11/20 184 AC 11/22 PO 0923 Aspirin Buffered 81 MG DAILY 11/20 184 AC 11/22 PO 0923 Budesonide/ 2 PUF BID 11/20 2099 AC 11/22 Formoterol Fumarate INH 0931 Carvedilol 25 MG BID 11/20 2100 AC 11/22 PO 0923 Epoetin Elia 1,500 UNIT QTUES 11/20 1844 AC 11/20 SC 2144 Fenofibrate 48 MG DAILY 11/21 0900 AC 11/22 PO 0923 Ferrous Sulfate 325 MG BID 11/20 2099 AC 11/22 PO 0923 Furosemide 40 MG 7:30 AM, & 4:30 PM 11/21 0730 AC 11/22 IV 0927 Heparin Sodium 5,000 UNIT Q8 11/20 2200 AC 11/22 (Porcine) SC 0601 Hydralazine HCl 100 MG TID 11/20 2100 AC 11/22 PO 0924 Hydroxyzine HCl 25 MG BID 11/20 2100 AC 11/22 PO 0923 Insulin Aspart 0 TIDAC 11/21 0800 AC 11/22 SC 1213 Insulin Detemir 24 UNITS AT BEDTIME 11/20 2099 AC 11/21 SC 2143 Nicotine 14 MG DAILY 11/21 1118 AC 11/22 TOP 0924 Omeprazole 40 MG DAILY AC 11/21 0700 AC 11/22 PO 0924 Oxycodone HCl 5 MG Q6P PRN 11/20 1900 AC 11/22 PO 0600 Pravastatin Sodium 40 MG 1700 11/21 1700 AC 11/21 PO 1739 Pregabalin 50 MG TID 11/20 2099 AC 11/22 PO 0923 Trazodone HCl 150 MG AT BEDTIME 11/20 2100 AC 11/21 PO 2143 Results Last 48 Hrs of Labs/Mics: Laboratory Tests 11/22/17 0620: Anion Gap 10, Estimated GFR 20 L, BUN/Creatinine Ratio 14.0 11/21/17 0600: Sodium Cancelled, Potassium Cancelled, Chloride Cancelled, Carbon Dioxide Cancelled, Anion Gap Cancelled, BUN Cancelled, Creatinine Cancelled, BUN/ Creatinine Ratio Cancelled, CBC w Diff Cancelled, WBC Cancelled, RBC Cancelled, Hgb Cancelled, Hct Cancelled, MCV Cancelled, MCH Cancelled, MCHC Cancelled, RDW Cancelled, Plt Count Cancelled, MPV Cancelled 11/20/17 2225: Troponin I < 0.01 11/20/17 1333: Anion Gap 9, Estimated GFR 27 L, BUN/Creatinine Ratio 12.6, Glucose 125 H, Calcium 8.1 L, Total Bilirubin 0.3, AST 16, ALT 18, Alkaline Phosphatase 48, Troponin I < 0.01, [id number] Pept 2620 H, Total Protein 6.4, Albumin 3.2 L, Globulin 3.2, Albumin/Globulin Ratio 1.0 L, CBC w Diff NO MAN DIFF REQ, RBC 3.68 L, MCV 96.0, MCH 30.2, MCHC 31.5 L, RDW 15.9 H, MPV 7.4, Gran % 82.5 H, Lymphocytes % 7.7 L, Monocytes % 7.5, Eosinophils % 2.0, Basophils % 0.3, Absolute Granulocytes 5.4, Absolute Lymphocytes 0.5 L, Absolute Monocytes 0.5, Absolute Eosinophils 0.1, Absolute Basophils 0 Assessment/Plan Assessment/Plan The patient has improved clinically. Her BUN and creatinine are slightly higher. She is still on IV Lasix. I recommend discontinuing IV Lasix for now. We can restart her on oral Lasix on discharge. I would keep her at least 1 more day and check her BUN and creatinine tomorrow before allowing her to be discharged. She should have a physical therapy consultation as well. I would assess her oxygen saturations with exercise to determine if she needs home oxygen. Continue telemetry? No
--- NOTE | 2017-11-22 14:21 | Cons- Nephrology ---
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 Hdz). She now comes in because of worsening dyspnea and orthopnea. Blood pressure was noted to be markedly elevated. Creatinine on admission was 2.5 with a known baseline creatinine that is generally range from 1.8-2.0. There does not appear to have been any recent exposure to NSAIDs, antibiotics or parenteral contrast. Chest x-ray showed pulmonary vascular congestion with small pleural effusions, right slightly greater than left. She is being diuresed for a diagnosis of congestive heart failure. Past medical history is positive as noted above Outpatient medications: See below Allergies no known drug allergies Family history father is with history of alcoholism, mother is with history of diabetes mellitus, 8 sisters (5 now ), 3 brothers (2 ) and one daughter -none with a history of kidney disease. Social history former abuser of recreational drugs, denies at this time. Smokes 1 pack of cigarettes per day and denies history of alcohol abuse. Previous drug abuse history included heroin, cocaine and crack. She claims to have been "clean" for 10 years. Allergies/Medications Allergies: Coded Allergies: No Known Allergies (09/01/15) Home Med List: Albuterol Sulfate (Proair Hfa) 90 MCG HFA.AER.AD 2 PUF INH Q4 BREATHING PROBLEMS Albuterol Sulfate 2.5 MG/3 ML (0.083 %) VIAL.NEB 3 ML INH Q4-6 PRN PRN SHORTNESS OF BREATH . Amlodipine Besylate (Norvasc) 10 MG TABLET 10 MG PO DAILY blood pressure .. Aspirin (Ecotrin*) 81 MG TABLET.DR 1 TAB PO DAILY HEART HEALTH Carvedilol 25 MG TABLET 25 MG PO BID blood pressure .. Epoetin Elia (Procrit) (Unknown Strength) VIAL (Unknown Dose) QTUES ANEMIA ( Reported) Fenofibrate (Tricor) 48 MG TABLET 1 TAB PO DAILY CHOLESTEROL Ferrous Sulfate 325 MG (65 MG IRON) TABLET.DR 325 MG PO BID Iron Def Anemia take 1 tab twice a day. Fluticasone/Salmeterol (Advair 250-50 Diskus) 250 MCG-50 MCG/DOSE BLST.W.DEV 1 PUF INH BID BREATHING PROBLEMS Furosemide (Lasix) 40 MG TABLET 1 TAB PO DAILY WATER RETENTION Hydralazine HCl 100 MG TABLET 1 TAB PO TID BLOOD PRESSURE take 1 tab three times a day.. Hydroxyzine Hydrochloride (Atarax) 25 MG TABLET 1 TAB PO BID UNKNOWN ( Reported) Insulin Aspart (Novolog) 100 UNIT/ML VIAL 0 UNITS SC TIDAC diabetes sugar unit <150 0 151-200 4 201-250 6 251-300 8 301-350 10 351-400 12 >400 14, call Insulin Detemir (Levemir) 100 UNIT/ML VIAL 24 UNITS SC QHS DM (Reported) Mirtazapine (Unknown Strength) TABLET (Unknown Dose) UNKNOWN (Reported) Pantoprazole Sodium (Protonix) 40 MG TABLET.DR 1 TAB PO DAILY ACID REFLUX Pravastatin Sodium (Pravachol) 40 MG TABLET 1 TAB PO DAILY CHOLESTEROL Pregabalin (Lyrica) 50 MG CAPSULE 1 CAP PO TID PAIN (Reported) Trazodone HCl 150 MG TABLET 1 TAB PO QPM SLEEP (Reported) Review of Systems Review of Systems: Gen.: Appetite fair, no unexplained weight loss or weight gain Skin: No rash or jaundice HEENT: No visual or hearing disturbances, no discharge Cardiopulmonary: +shortness of breath (see HPI), no cough or chest pain, + orthopnea GI: No nausea, vomiting, abdominal pain, diarrhea : No dysuria, hematuria or other symptoms referable to the urinary tract Musculoskeletal: No arthralgias, arthritis, myalgias, + generalized weakness, + edema (see HPI) Neuro: No altered mental status, speech impairment, focal weakness, paresthesias Past History Travel History Traveled to [place] past 21 day No Medical History Blood Transfusion Hx: Yes Neurological: NONE EENT: cataracts Cardiovascular: CHF, hypertension, hyperlipidemia Respiratory: COPD, pneumonia Gastrointestinal: GERD, iron deficiency anemia chronic, intermittent diarrhea Hepatic: cholecystitis, hepatitis C Renal: chronic kidney disease Musculoskeletal: falls, osteoporosis Psychiatric: NONE Endocrine: diabetes Blood Disorders: anemia Cancer(s): NONE 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 Home Who Do You Live With? child Services at Home: [facility] Smoking Status: Current Everyday Smoker ETOH Use: occasional use Illicit Drug Use: denies illicit drug use Functional Ability ADLs Independent: dressing, eating, toileting, bathing. Ambulation: independent, cane Exam & Diagnostic Data Vital Signs and I&O Vital Signs Date Time Temp Pulse Resp B/P B/P Pulse O2 O2 Flow FiO2 Mean Ox Delivery Rate 11/22 0924 138/66 11/22 0923 98.4 70 20 138/66 11/22 0923 98.4 70 138/66 11/22 0800 95 Nasal 2.0L Cannula 11/22 0644 98.4 70 20 13866 93 Nasal Cannula 11/22 0000 Nasal 2.0L Cannula 11/21 2253 99.2 70 18 138/66 93 Nasal Cannula 11/21 2144 70 138/66 11/21 2143 70 138/66 11/21 2142 99.2 70 138/66 Intake & Output 11/22 1600 11/22 0400 11/21 1600 11/21 0400 11/20 1600 11/20 0400 Intake Total 440 674 800 360 Output Total 450 600 600 Balance -10 74 200 360 Intake, IV 14 Intake, Oral 440 660 800 360 Output, Urine 450 600 600 Patient 193 lb 187 lb Weight Weight Bed scale Measurement Method Physical Exam: General: Well-developed, obese black female in no acute distress, on nasal O2 Skin: Without rash or lesions HEENT: Conjunctivae pale, sclerae anicteric, mucous membranes moist Neck: Without masses or thyromegaly; no supraclavicular or cervical adenopathy Chest: Clear with decreased breath sounds at bases Heart: Regular rate and rhythm without S3 or rub Abdomen: Obese, soft, nontender without palpable masses or organomegaly Extremities: 2-3+ dependent edema bilaterally Neuro: Awake, alert, oriented; no focal findings; no asterixis or my myoclonus Assessment/Plan Assessment/Recommendations Assessment: 62-year-old woman with multiple comorbidities as detailed above, now comes in with what appears to be exacerbation of CHF and associated worsening of her CKD with superimposed ADDY. Her baseline creatinine went from approximately 2.0 up to 2.5 likely related to poor renal perfusion due to her congestive heart failure. As she is being diuresed, creatinine may go up for some time before returning toward baseline. Recommendations: 1. For the moment, would continue aggressive attempts at diuresis while monitoring intake and output, daily weights, daily chemistries 2. Check phosphorus, PTH, vitamin D, magnesium levels 3. No other renal diagnostics for the now 4. Continue current medication regimen Thank you. We will continue to follow with you.
[2017-11-22 14:45] VITALS: BP 142/68
[2017-11-22 23:09] VITALS: BP 142/60
[2017-11-23 06:45] VITALS: BP 140/64
--- NOTE | 2017-11-23 07:10 | PN- Housestaff ---
See Addendum Jorgito WILLIAMSON,[facility] 11/23/17 0710: Subjective Follow-up For: CHF exacerbation Tele-Events Since Last Visit: Normal sinus rhythm with heart rate in 70s Subjective: Patient states she feels better, shortness of breath has significantly improved and she slept without oxygen all night. Continues to have lower extremity edema but wants to go home today. Review of Systems Constitutional: Reports: no symptoms. EENTM: Reports: no symptoms. Cardiovascular: Reports: orthopena, peripheral edema. Respiratory: Reports: no symptoms. Gastrointestinal: Reports: no symptoms. Genitourinary: Reports: no symptoms. Musculoskeletal: Reports: no symptoms. Skin: Reports: no symptoms. Neurological/Psychological: Reports: no symptoms. Hematologic/Endocrine: Reports: no symptoms. Immunologic/Allergic: Reports: no symptoms. Objective Last 24 Hrs of Vital Signs/I&O Vital Signs Date Time Temp Pulse Resp B/P B/P Pulse O2 O2 Flow FiO2 Mean Ox Delivery Rate 11/23 0645 99.0 70 92 140/64 20 Nasal Cannula 11/23 0000 Nasal 2.0L Cannula 11/22 2309 99.1 76 20 142/60 93 Nasal Cannula 11/22 2217 74 142/68 11/22 2216 74 142/68 11/22 1454 98.1 74 20 142/68 11/22 1445 98.1 74 20 142/68 95 Nasal 2.0L Cannula 11/22 0924 138/66 11/22 0923 98.4 70 20 138/66 11/22 0923 98.4 70 138/66 Intake & Output 11/23 1600 11/23 0800 11/23 0000 Intake Total 120 Output Total Balance 120 Intake, Oral 120 Physical Exam General Appearance: Alert, Oriented X3, Cooperative, No Acute Distress Skin: No Rashes, No Breakdown Cardiovascular: Regular Rate, Normal S1, Normal S2 Lungs: decreased breath sounds, crackles/ronchi on left lung base Abdomen: Normal Bowel Sounds, Soft, No Tenderness Extremities: No Clubbing, No Cyanosis Current Medications: Current Medications Sig/Jannet Start time Last Medication Dose Route Stop Time Status Admin Acetaminophen 325 MG Q6P PRN 11/20 1900 AC PO Acetaminophen 650 MG Q6P PRN 11/20 190 AC PO Albuterol Sulfate 2 PUF Q4 11/20 2199 AC 06/01 INH 0553 Albuterol Sulfate 3 ML Q4-6 PRN PRN 11/20 184 AC INH Amlodipine Besylate 10 MG DAILY 11/20 184 AC 11/22 PO 0923 Aspirin Buffered 81 MG DAILY 11/20 184 AC 11/22 PO 0923 Budesonide/ 2 PUF BID 11/20 2100 AC 11/22 Formoterol Fumarate INH 2218 Carvedilol 25 MG BID 11/20 2100 AC 11/22 PO 2217 Epoetin Elia 1,500 UNIT QTUES 11/20 184 AC 11/20 SC 2144 Ergocalciferol 50,000 IU ONCE ONE 11/23 0730 DC PO 11/23 0731 Fenofibrate 48 MG DAILY 11/21 0900 AC 11/22 PO 0923 Ferrous Sulfate 325 MG BID 11/20 2100 AC 11/22 PO 2216 Furosemide 40 MG 7:30 AM, & 4:30 PM 11/22 1630 AC 11/22 IV 1738 Furosemide 40 MG 7:30 AM, & 4:30 PM 11/21 0730 DC 11/22 IV 0927 Heparin Sodium 5,000 UNIT Q8 11/20 2200 AC 11/23 (Porcine) SC 0552 Hydralazine HCl 100 MG TID 11/20 2100 AC 11/22 PO 2216 Hydroxyzine HCl 25 MG BID 11/20 2100 AC 11/22 PO 2213 Insulin Aspart 0 TIDAC 11/21 0800 AC 11/22 SC 1758 Insulin Detemir 24 UNITS AT BEDTIME 11/20 2100 11/22 SC 2200 Nicotine 14 MG DAILY 11/21 1118 11/22 TOP 0924 Omeprazole 40 MG DAILY AC 11/21 0700 AC 11/23 PO 0551 Oxycodone HCl 5 MG Q6P PRN 11/20 1900 11/23 PO 0552 Patient Medication 1 ED ONE ONE 11/22 1630 DC Teaching ED 11/22 1631 Polyethylene Glycol 17 GM DAILY 11/22 2300 AC 11/23 PO 0035 Pravastatin Sodium 40 MG 1700 11/21 1700 AC 11/22 PO 2232 Pregabalin 50 MG TID 11/20 2100 AC 11/22 PO 2217 Senna 187 MG AT BEDTIME 11/22 2300 AC 11/23 PO 0034 Trazodone HCl 150 MG AT BEDTIME 11/20 2100 AC 11/22 PO 2214 Last 24 Hrs of Lab/Olu Results Last 24 Hrs of Labs/Mics: Laboratory Tests 11/23/17 0625: Sodium Pending, Potassium Pending, Chloride Pending, Carbon Dioxide Pending, Anion Gap Pending, BUN Pending, Creatinine Pending, BUN/Creatinine Ratio Pending , PTH Intact Pending Assessment/Plan Assessment: 62 year old female with past medical history significant for COPD,MITZY, HLD, HFpEF, DM, osteoporosis, iron deficiency anemia, CKD Stage 4 recently admitted for GI bleed and symptomatic anemia underwent push enteroscopy 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 On admission was found to be in CHF exacerbation with an elevated Pro-BNP, CXR showed pulmonary vascular congestion and had elevated JVD with +2 pitting edema on examination. Also had a blood pressure of 202/84, which could be responsible for the exacerbation or vice versa. Problem list; 1. CHF exacerbation 2. Hypertensive urgency - resolved 3. Chronic medical conditions - Continue monitoring on telemetry floor. - IV Lasix was continued yesterday per nephmichael campos with slight increase in creatinine given she is on IV Lasix. Will discontinue today. - Strict ins and outs (positive fluid balance of almost 1200 since admission ) and daily weight. - Appreciate Nephrology recommendations. - PTH pending. - Vitamin D 11.2, Phos 6.1, PTH pending. Will give Vit D 50,000 IU x 1. - Echo shows normal EF with no regional WM abnormalities. - Appreciate cardiology recommendations. - BP well controlled,will continue her home BP meds. - Continue rest of home medications. DVT prophylaxis; S/C heparin and ALPS Patient is Full code. Problem List: 1. CHF (congestive heart failure) Pain Ratin Pain Location: None Pain Goal: Remain pain free Pain Plan: Pain pathway Tomorrow's Labs & Rationales: BEP(on Lasix) Denise Butler MD 11/23/17 1120: Attending MD Review Statement Attending Statement Attending MD Statement: examined this patient, discuss w/resident/PA/POWDER CORE TESTER, agreed w/resident/PA/POWDER CORE TESTER, reviewed EMR data (avail) Attending Assessment/Plan: 62F PMH DM, HTN, HfpEF, COPD, LAINE, CKD stage 4 secondary to diabetic nephropathy , jejunal AVM s/p ablation, Hep C admitted for worsening dyspnea on exertion and with rest, with b/l LE edema and pulmonary edema on CXR. Started on IV Lasix on admission. Patient is still short of breath and having orthopnea. She is hemodynamically stable. Her creatinine is up to 2.8. 1. Acute on chronic diastolic CHF Plan - Continue on telemetry - I/O, daily weights - Nephrology and Cardiology consult - Ambulatory saturation - Continue home meds - DVT PPx - DVT PPx
--- NOTE | 2017-11-23 09:21 | ECHOCARDIOGRAM REPORT ---
ORLIN FERNANDEZ Age: 62 : 1955 Gender: F Exam Date: 11/22/2017 18:49 Exam Location: [address] [place] [address] A Ht (in): 61 Wt (lb): 193 BSA: 1.98 BP: 160 / 72 Ordering Physician: Zeyad Jackman MD Referring Physician: Zeyad Jackman MD Technologist: Brie Shelby DOMINGO Room Number: 173 Indications: HEART FAILURE Rhythm: Sinus Technical Quality: Good FINDINGS Left Ventricle Normal size left ventricle. Moderate concentric left ventricular hypertrophy. Normal left ventricular ejection fraction visually estimated at >65 %. No obvious regional wall motion abnormalities. Normal left ventricular diastolic filling pattern for age. Right Ventricle The right ventricle is normal in size and function. Right Atrium The right atrium is normal in size. Left Atrium Left atrial size at the upper limits of normal. Mitral Valve Mild thickening/calcification of the mitral valve leaflets. Moderate mitral annular calcification. Mild mitral regurgitation. Aortic Valve Focal thickening of the aortic valve cusps. No aortic stenosis. No aortic regurgitation. Tricuspid Valve Tricuspid valve is normal in structure and function. Mild tricuspid regurgitation. Right ventricular systolic pressure estimated to be elevated at 45-50 mmHg. Pulmonic Valve Pulmonic valve not well visualized, grossly normal. Trace pulmonic regurgitation. Pericardium Normal pericardium without effusion. No pleural effusion. Great Vessels Normal aortic root dimension. The aortic arch and great vessels are not well seen. CONCLUSIONS Moderate concentric left ventricular hypertrophy. Normal left ventricular ejection fraction visually estimated at >65 Normal left ventricular diastolic filling pattern for age. Left atrial size at the upper limits of normal. Mild thickening/calcification of the mitral valve leaflets. Moderate mitral annular calcification. Mild mitral regurgitation. Focal thickening of the aortic valve cusps. No aortic stenosis. Right ventricular systolic pressure estimated to be elevated at 45- 50 mmHg. The aortic arch and great vessels are not well seen. Zeyad Jackman M.D. (Electronically Signed) Final Date: 23 November 2017 09:20 MEASUREMENTS (Male / Female) Normal Values 2D ECHO LV Diastolic Diameter PLAX 4.4 cm 4.2 - 5.9 / 3.9 - 5.3 cm LV Systolic Diameter PLAX 2.3 cm 2.1 - 4.0 cm LV Fractional Shortening PLAX 47.7 % 25 - 46 % LV Ejection Fraction 2D Teich 79.3 % IVS Diastolic Thickness 1.4 cm LVPW Diastolic Thickness 1.4 cm LV Relative Wall Thickness 0.6 RV Internal Dim ED PLAX 3.3 cm 1.9 - 3.8 cm LVOT Diameter 2.0 cm Aortic Root Diameter 2.9 cm LA Systolic Diameter LX 5.4 cm 3.0 - 4.0 / 2.7 - 3.8 cm LA Volume 52.0 cm 18 - 58 / 22 - 52 cm Ascending Aorta Diameter 2.9 cm DOPPLER AV Peak Velocity 179.0 cm/s AV Peak Gradient 12.8 mmHg AV Mean Velocity 111.0 cm/s AV Mean Gradient 6.0 mmHg AV Velocity Time Integral 39.1 cm LVOT Peak Velocity 148.0 cm/s LVOT Peak Gradient 8.8 mmHg LVOT Mean Velocity 96.5 cm/s LVOT Mean Gradient 4.0 mmHg LVOT Velocity Time Integral 33.2 cm LVOT Stroke Volume 104.3 cm AV Area Cont Eq vti 2.7 cm AV Area Cont Eq pk 2.6 cm MV Peak Velocity 157.0 cm/s MV Peak Gradient 9.9 mmHg MV Mean Velocity 88.0 cm/s MV Mean Gradient 4.0 mmHg Mitral E Point Velocity 154.0 cm/s Mitral A Point Velocity 123.0 cm/s Mitral E to A Ratio 1.3 MV PHT Velocity 162.0 cm/s MV Deceleration [place] 542.0 cm/s MV Pressure Half Time 89.7 ms MV Area PHT 2.5 cm MV Deceleration Time 209.0 ms TR Peak Velocity 334.0 cm/s TR Peak Gradient 44.6 mmHg Right Atrial Pressure 5.0 mmHg Pulmonary Artery Systolic Pressu 49.6 mmHg Right Ventricular Systolic Press 49.6 mmHg PV Peak Velocity 154.0 cm/s PV Peak Gradient 9.5 mmHg PV Mean Velocity 105.0 cm/s PV Mean Gradient 5.0 mmHg PV Velocity Time Integral 36.1 cm LV E' Lateral Velocity 9.7 cm/s Mitral E to LV E' Lateral Ratio 16.0 LV E' Septal Velocity 7.7 cm/s Mitral E to LV E' Septal Ratio 20.0
--- NOTE | 2017-11-23 10:16 | Discharge Summary ---
Visit Information Visit Dates Admission Date: 11/20/17 Discharge Date: 12/06/17 Hospital Course Course Attending Physician: Denise Butler MD Primary Care Physician: Ruthann WILLIAMSON,[facility] Course: Ms. 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 On admission was found to be in CHF exacerbation with an elevated Pro-BNP, CXR showed pulmonary vascular congestion and had elevated JVD with +2 pitting edema on examination. She was admitted to telemetry and treated for the following problems and subsequently downgraded to gen med once stable: 1. Acute decompensated heart failure 2. Cardiorenal syndrome 3. Hypertensive urgency 4. False positive hepatitis C antibody 5. Acute hypoxic respiratory failure #Acute decompensated heart failure: Patient presented with signs and symptoms of heart failure. She was initially diuresed and then developed worsening acute kidney injury. Diuresis was held but then resumed after discussion with nephrology. Her breathing subsequently improved. TTE revealed EF greater than 65% with right ventricular systolic pressure 4550 mmHg. Fluid balance is was monitored and she was adequately diuresed. Oxygen therapy was also tapered and she is now breathing well on room air. #Cardiorenal syndrome Patient's baseline creatinine around 2.0. When she presented, creatinine was normal but subsequently increased. After discussion with nephrology, we resume diuresis and her creatinine decreased from 3.7 to 2.6. Renal ultrasound was normal. This was probably acute kidney injury in the setting of low output heart failure. Her diuretics were changed from Furosemide to Torsemide and Metolazone due to suspected tolerance of furosemide and no change to lower extremity edema. #Acute hypoxic respiratory failure: Her ambulatory O2 levels dropped to 80s and she was placed on 1L oxygen. Upon discharge it was agreed upon that she would wait for her portable oxygen prior to leaving and that her home oxygen be delivered the evening of discharge. She wanted her larger home oxygen be delivered the following day instead because she had some prior arrangements planned and stated she would like to be there to accept her oxygen. She subsequently left the day of discharge without her portable oxygen and refused to wait for it. #Hypertension: Patient has hypertensive mostly at night. Her amlodipine was switched to 5 mg twice a day in order to cover her nighttime hypertension. We subsequently discontinued it due to suspected contributing to her bilateral extremity edema #False positive hepatitis C antibody: Patient was noted to have positive hepatitis C antibody but negative HCV RNA. This likely means she cleared the virus or it is a false positive. No treatment is necessary at this time. #Chronic medical problems: Her other home medications were continued Allergies: Coded Allergies: No Known Allergies (09/01/15) Pertinent Lab Results: 11/20/17-1326 EXAM TYPE: RAD - XRY-CHEST XRAY, TWO VIEWS IMPRESSION: Mild central vascular congestion without overt pulmonary edema. There are bilateral pleural effusions. 11/21/17-1199 EXAM TYPE: CARD - ECHOCARDIOGRAM CONCLUSIONS Moderate concentric left ventricular hypertrophy. Normal left ventricular ejection fraction visually estimated at >65 Normal left ventricular diastolic filling pattern for age. Left atrial size at the upper limits of normal. Mild thickening/calcification of the mitral valve leaflets. Moderate mitral annular calcification. Mild mitral regurgitation. Focal thickening of the aortic valve cusps. No aortic stenosis. Right ventricular systolic pressure estimated to be elevated at 45- 50 mmHg. The aortic arch and great vessels are not well seen. 11/26/17-899 EXAM TYPE: US - US-RENAL/KIDNEY IMPRESSION: Limited exam. No hydronephrosis or other focal abnormality seen. 12/03/17-1499 EXAM TYPE: US - US-EXT BILAT VENOUS DOPPLER IMPRESSION: No sonographic evidence of deep venous thrombosis involving the bilateral lower extremities. Disposition Summary Disposition Principal Diagnosis: 1. Acute decompensated heart failure Additional Diagnosis: 2. Cardiorenal syndrome 3. Hypertensive urgency 4. False positive hepatitis C antibody 5. Acute hypoxic respiratory failure Discharge Disposition: home health services Discharge Instructions General Discharge Information Code Status: Full Code Patient's Diet: CHF diet Patient's Activity: As tolerated Follow-Up Instructions/Appts: Please take all medications as directed. Please follow-up with primary care and cardiology. Medications at Discharge Discharge Medications: Stop taking the following medications: Trazodone HCl (Trazodone HCl) 150 MG TABLET ORAL Every night Amlodipine Besylate (Norvasc) 10 MG TABLET ORAL DAILY Qty = 30 Furosemide (Furosemide) 40 MG TABLET ORAL DAILY Qty = 30 Continue taking these medications: Hydroxyzine Hydrochloride (Atarax) 25 MG TABLET 1 Tablet ORAL TWICE DAILY Comments: LAST GIVEN 12/06/17 @ 0845 Pregabalin (Lyrica) 50 MG CAPSULE 1 Capsule ORAL THREE TIMES DAILY Comments: LAST GIVEN 12/06/17 @ 1345 Carvedilol (Carvedilol) 25 MG TABLET 25 Milligram ORAL TWICE DAILY Qty = 60 Instructions: .. Comments: LAST GIVEN 12/06/17 @ 0845 Insulin Aspart (Novolog) 100 UNIT/ML VIAL 0 Units Inject into fatty tissue 3 TIMES DAILY BEFORE MEALS Qty = 10 Instructions: sugar unit <150 0 151-200 4 201-250 6 251-300 8 301-350 10 351-400 12 >400 14, call Comments: LAST GIVEN 12/06/17 @ 1345 Fenofibrate (Tricor) 48 MG TABLET 1 Tablet ORAL DAILY Qty = 30 Comments: LAST GIVEN 12/06/17 @ 0845 Pravastatin Sodium (Pravachol) 40 MG TABLET 1 Tablet ORAL DAILY Qty = 30 Comments: LAST GIVEN 12/05/17 @ 1700 Pantoprazole Sodium (Protonix) 40 MG TABLET. 1 Tablet ORAL DAILY Qty = 30 Comments: NOT GIVEN IN HOSPITAL GIVEN PRILOSE IN HOSPITAL 09/26/17 0600 AM Aspirin (Ecotrin*) 81 MG TABLET.DR 1 Tablet ORAL DAILY Qty = 30 Comments: LAST GIVEN 12/06/17 @ 0845 Albuterol Sulfate (Proair Hfa) 90 MCG HFA.AER.AD 2 Puff Inhale through mouth Every 4 hours Qty = 2 Comments: NOT GIVEN IN HOSPITAL Fluticasone/Salmeterol (Advair 250-50 Diskus) 250 MCG-50 MCG/DOSE BLST.W.DEV 1 Puff Inhale through mouth TWICE DAILY Qty = 60 Comments: NOT GIVEN IN HOSPITAL Hydralazine HCl (Hydralazine HCl) 100 MG TABLET 1 Tablet ORAL THREE TIMES DAILY Qty = 90 Instructions: take 1 tab three times a day.. Comments: LAST GIVEN 12/06/17 @ 1345 Albuterol Sulfate (Albuterol Sulfate) 2.5 MG/3 ML (0.083 %) VIAL.NEB 3 Milliliters Inhale through mouth EVERY 4-6 HOURS NEEDED as needed for SHORTNESS OF BREATH Qty = 90 Instructions: . Comments: NOT GIVEN IN HOSPITAL. Epoetin Elia (Procrit) 20,000 UNIT/ML VIAL 15,000 Units INTRAVEN EVERY SUNDAY Comments: LAST GIVEN @ 1000 Insulin Detemir (Levemir) 100 UNIT/ML VIAL 24 Units Inject into fatty tissue TAKE AT BEDTIME Comments: LAST GIVEN 12/05/17 @ 2130 Mirtazapine (Mirtazapine) (Unknown Strength) TABLET Unknown Dose Qty = 30 Comments: NOT GIVEN IN HOSPITAL. Ferrous Sulfate (Ferrous Sulfate) 325 MG (65 MG IRON) TABLET.DR 325 Milligram ORAL TWICE DAILY Qty = 60 Instructions: take 1 tab twice a day. Comments: LAST GIVEN 12/06/17 @ 0845 Start taking the following new medications: Metolazone (Metolazone) 5 MG TABLET 5 Milligram ORAL EVERY 48 HOURS (Every 2 days) Qty = 30 No Refills Comments: LAST GIVEN 12/05/17 @ 0830 Trazodone HCl (Trazodone HCl) 50 MG TABLET 1 Tablet ORAL AT BEDTIME Qty = 30 No Refills Comments: LAST GIVEN 12/06/17 @ 2130 Hydroxyzine HCl (Hydroxyzine HCl) 10 MG TABLET 1 Tablet ORAL TWICE DAILY Qty = 30 No Refills Comments: LAST GIVEN 12/06/17 @ 1345 Calcium Carbonate (Calcium Carbonate) 500 MG CALCIUM (1,250 MG) TABLET 2.5 Tablet ORAL THREE TIMES DAILY Qty = 120 No Refills Comments: LAST GIVEN 12/06/17 @ 1345 Sevelamer Carbonate (Renvela) 800 MG TABLET 1 Tablet ORAL WITH MEALS Qty = 90 No Refills Comments: LAST GIVEN 12/06/17 @ 1345 Torsemide (Torsemide) 20 MG TABLET 80 Milligram ORAL TWICE DAILY Qty = 60 No Refills Comments: LAST GIVEN 12/05/17 @ 2130 Nicotine (Nicotine Patch) 14 MG/24 HOUR PATCH.TD24 14 Milligram On the skin DAILY Qty = 7 No Refills Comments: LAST GIVEN 12/06/17 @ 1100 Prednisone (Prednisone) 10 MG TABLET 10 Tablet ORAL SEE INSTRUCTIONS Qty = 10 No Refills Instructions: TAKE 30 12/07. TAKE 20 MG 12/08, 12/09. TAKE 10 MG 12/10, 12/11. Comments: LAST GIVEN 12/06/17 @ 1345 Copies To: Ricardo Truong MD; Melanie Fulton MD
--- NOTE | 2017-11-23 11:25 | PN- Cardiology ---
Subjective Subjective: The patient feels well. She has been ambulatory. She has no chest pain. Her edema has reduced but she still has some residual edema. She is on 1 [place], off telemetry Objective Vital Signs and I&Os Vital Signs Date Time Temp Pulse Resp B/P B/P Pulse O2 O2 Flow FiO2 Mean Ox Delivery Rate 11/23 0839 140/64 11/23 0838 140/64 11/23 0800 95 Nasal 2.0L Cannula 11/23 0645 99.0 70 92 140/64 20 Nasal Cannula 11/23 0000 Nasal 2.0L Cannula 11/22 2309 99.1 76 20 142/60 93 Nasal Cannula 11/22 2217 74 142/68 11/22 2216 74 142/68 11/22 1454 98.1 74 20 142/68 11/22 1445 98.1 74 20 142/68 95 Nasal 2.0L Cannula Intake & Output 11/23 1600 11/23 0800 11/23 0000 11/22 1600 11/22 0800 11/22 0000 Intake Total 120 500 440 674 Output Total 450 600 Balance 120 500 -10 74 Intake, IV 14 Intake, Oral 120 500 440 660 Output, Urine 450 600 Physical Exam: She is in no distress Chest is clear Heart regular Extremities 1+ edema Current Medications: Current Medications Sig/Jannet Start time Last Medication Dose Route Stop Time Status Admin Acetaminophen 325 MG Q6P PRN 11/200 AC PO Acetaminophen 650 MG Q6P PRN 11/20 1900 AC PO Albuterol Sulfate 2 PUF Q4 11/20 2200 AC 11/23 INH 0843 Albuterol Sulfate 3 ML Q4-6 PRN PRN 11/20 1844 AC INH Amlodipine Besylate 10 MG DAILY 11/20 184 AC 11/23 PO 0839 Aspirin Buffered 81 MG DAILY 11/21 1843 AC 11/23 PO 0839 Budesonide/ 2 PUF BID 11/20 2099 AC 11/23 Formoterol Fumarate INH 0843 Carvedilol 25 MG BID 11/20 2099 AC 11/23 PO 0839 Epoetin Elia 1,500 UNIT QTUES 11/20 1844 AC 11/20 OR 2144 Ergocalciferol 50,000 IU ONCE ONE 11/23 0730 DC PO 11/23 0731 Fenofibrate 48 MG DAILY 11/21 09 AC 11/23 PO 0839 Ferrous Sulfate 325 MG BID 11/20 2099 AC 11/23 PO 0839 Furosemide 40 MG 7:30 AM, & 4:30 PM 11/22 1630 AC 11/23 IV 0842 Furosemide 40 MG 7:30 AM, & 4:30 PM 11/21 0730 DC 11/22 IV 0927 Heparin Sodium 5,000 UNIT Q8 11/20 2200 AC 11/23 (Porcine) SC 0552 Hydralazine HCl 100 MG TID 11/20 2100 AC 11/23 PO 0838 Hydroxyzine HCl 25 MG BID 11/20 2100 AC 11/23 PO 0839 Insulin Aspart 0 TIDAC 11/21 0800 AC 11/22 SC 1758 Insulin Detemir 24 UNITS AT BEDTIME 11/20 2100 AC 11/22 SC 2200 Nicotine 14 MG DAILY 11/21 1118 AC 11/23 TOP 0841 Omeprazole 40 MG DAILY AC 11/21 0700 AC 11/23 PO 0551 Oxycodone HCl 5 MG Q6P PRN 11/20 1900 AC 11/23 PO 0552 Patient Medication 1 ED ONE ONE 11/22 1630 ID Teaching ED 11/22 1631 Polyethylene Glycol 17 GM DAILY 11/22 2300 AC 11/23 PO 0035 Pravastatin Sodium 40 MG 1700 11/21 1700 AC 11/22 PO 2232 Pregabalin 50 MG TID 11/20 2100 AC 11/23 PO 0839 Senna 187 MG AT BEDTIME 11/22 2300 AC 11/23 PO 0034 Trazodone HCl 150 MG AT BEDTIME 11/20 2100 AC 11/22 PO 2214 Results Last 48 Hrs of Labs/Mics: Laboratory Tests 11/23/17 0625: Anion Gap 6, Estimated GFR 17 L, BUN/Creatinine Ratio 15.7, PTH Intact 302.6 H 11/22/17 0620: Anion Gap 10, Estimated GFR 20 L, BUN/Creatinine Ratio 14.0, Phosphorus 6.1 H, Magnesium 2.4 H, 25-OH Vitamin D Total 11.4 L Recent Imaging Studies: PATIENT: ORLIN FERNANDEZ PRESENT AGE: 62 PATIENT ACCOUNT NO: [id number] : 57 LOCATION: [facility] ORDERING PHYSICIAN: Mya Bull MD SERVICE DATE: 11/22/17 EXAM TYPE: RAD - XRY-PORTABLE CHEST XRAY EXAMINATION: XR PORTABLE CHEST CLINICAL INFORMATION: Dyspnea. Congestive heart failure. COMPARISON: None. TECHNIQUE: An 85 degrees semierect portable view of the chest was obtained. FINDINGS: The lung andres are hypoexpanded bilaterally. The cardiac silhouette remains prominent. Is mild prominence of the central pulmonary vasculature. The interstitial markings are not significantly increased. The study redemonstrates right greater than left pleural effusions. The linear atelectasis at the left base has resolved. A linear opacity in the right mid chest is most consistent with the minor fissure. There are multiple monitor leads overlying the chest. IMPRESSION: 1. Hypoexpanded lungs bilaterally. 2. The cardiac silhouette is mildly prominent and the central pulmonary vasculature demonstrates pulmonary congestion. There is no overt interstitial edema 3. There are right greater than left small pleural effusions. DICTATED BY: Kevin Rudd MD DATE/TIME DICTATED:11/22/17925 GENERAL LABOR:NIKI DATE/TIME TRANSCRIBED:11/22/17925 CONFIDENTIAL, DO NOT COPY WITHOUT APPROPRIATE AUTHORIZATION. <Electronically signed in Other Vendor System> SIGNED BY: Kevin Rudd MD 11/22/1733 CONCLUSIONS Moderate concentric left ventricular hypertrophy. Normal left ventricular ejection fraction visually estimated at >65 Normal left ventricular diastolic filling pattern for age. Left atrial size at the upper limits of normal. Mild thickening/calcification of the mitral valve leaflets. Moderate mitral annular calcification. Mild mitral regurgitation. Focal thickening of the aortic valve cusps. No aortic stenosis. Right ventricular systolic pressure estimated to be elevated at 45- 50 mmHg. The aortic arch and great vessels are not well seen. Zeyad Jackman M.D. (Electronically Signed) Final Date: 23 November 2017 09:20 Assessment/Plan Assessment/Plan The patient is clinically improved. However BUN/creatinine have risen again. This has happened to her on previous admissions also. She is still apparently receiving IV Lasix. I recommend discontinuing IV Lasix. I would give her back a little bit of fluid as I think she has been over diuresed. I would check her BUN and creatinine after perhaps 500 cc of fluid. if it is stable she can be discharged on oral Lasix. Continue telemetry? Not applicable
--- NOTE | 2017-11-23 12:48 | PN- Nephrology ---
Assessment/Plan Nephrology Assessment: 1. CKD stage IV secondary to diabetic nephropathy 2. ADDY secondary to decompensated CHF (HFpEF) 3. Hyperphosphatemia with secondary hyperparathyroidism 4. Hypovitaminosis D 5. COPD (active smoker) with obstructive sleep apnea 6. GI bleed in July secondary to jejunal AVMs Suggestion: 1. Discontinue intravenous Lasix 2. Can resume oral Lasix as an outpatient 3. Okay to give her a limited fluid challenge as suggested by Cardiology although she may well re-equilibrate on her own 4. Begin a phosphate binder; suggest calcium carbonate 1250 mg by mouth 3 times a day with meals Subjective Subjective: Patient feels a bit better today and has no specific complaints. Creatinine up to 2.8. Electrolytes okay. High phosphorus and low vitamin D levels noted. Objective Vital Signs and I&Os Vital Signs Date Time Temp Pulse Resp B/P B/P Pulse O2 O2 Flow FiO2 Mean Ox Delivery Rate 11/23 0839 140/64 11/23 0838 140/64 11/23 0800 95 Nasal 2.0L Cannula 11/23 0645 99.0 70 92 140/64 20 Nasal Cannula 11/23 0000 Nasal 2.0L Cannula 11/22 2309 99.1 76 20 142/60 93 Nasal Cannula 11/22 2217 74 142/68 11/22 2216 74 142/68 11/22 1454 98.1 74 20 142/68 11/22 1445 98.1 74 20 142/68 95 Nasal 2.0L Cannula Intake & Output 11/23 1600 11/23 0400 11/22 1600 11/22 0400 11/21 1600 11/21 0400 Intake Total 120 940 674 800 360 Output Total 450 600 600 Balance 120 490 74 200 360 Intake, IV 14 Intake, Oral 120 940 660 800 360 Output, Urine 450 600 600 Patient 193 lb Weight Weight Bed scale Measurement Method Physical Exam: General: Well-developed, obese black female in no acute distress, on nasal O2 Skin: Without rash or lesions HEENT: Conjunctivae pale, sclerae anicteric, mucous membranes moist Neck: Without masses or thyromegaly; no supraclavicular or cervical adenopathy Chest: Few bibasilar rales Heart: Regular rate and rhythm without S3 or rub Abdomen: Obese, soft, nontender without palpable masses or organomegaly Extremities: 1-2+ dependent edema bilaterally Neuro: Awake, alert, oriented; no focal findings; no asterixis or my myoclonus Results Pertinent Lab Results: Laboratory Tests 11/23 11/22 11/21 11/20 0625 0620 0600 2225 Chemistry Sodium (137 - 145 mmol/L) 138 139 Cancelled Potassium (3.5 - 5.1 mmol/L) 5.0 4.9 Cancelled Chloride (98 - 107 mmol/L) 104 106 Cancelled Carbon Dioxide (22 - 30 mmol/L) 28 24 Cancelled Anion Gap (5 - 16) 6 10 Cancelled BUN (7 - 17 mg/dL) 44 H 35 H Cancelled Creatinine (0.5 - 1.0 mg/dL) 2.8 H 2.5 H Cancelled Estimated GFR (>60 ml/min) 17 L 20 L BUN/Creatinine Ratio (7 - 25 %) 15.7 14.0 Cancelled Phosphorus (2.5 - 4.5 mg/dL) 6.1 H Magnesium (1.6 - 2.3 mg/dL) 2.4 H Troponin I (< 0.11 ng/ml) < 0.01 25-OH Vitamin D Total (30 - 100 ng/ml) 11.4 L PTH Intact (18.4 - 80.1 pg/ML) 302.6 H Hematology CBC w Diff Cancelled WBC Cancelled RBC Cancelled Hgb Cancelled Hct Cancelled MCV Cancelled MCH Cancelled MCHC Cancelled RDW Cancelled Plt Count Cancelled MPV Cancelled 11/20 1333 Chemistry Sodium (137 - 145 mmol/L) 141 Potassium (3.5 - 5.1 mmol/L) 4.7 Chloride (98 - 107 mmol/L) 106 Carbon Dioxide (22 - 30 mmol/L) 26 Anion Gap (5 - 16) 9 BUN (7 - 17 mg/dL) 24 H Creatinine (0.5 - 1.0 mg/dL) 1.9 H Estimated GFR (>60 ml/min) 27 L BUN/Creatinine Ratio (7 - 25 %) 12.6 Glucose (65 - 99 mg/dL) 125 H Calcium (8.4 - 10.2 mg/dL) 8.1 L Total Bilirubin (0.2 - 1.3 mg/dL) 0.3 AST (14 - 36 U/L) 16 ALT (9 - 52 U/L) 18 Alkaline Phosphatase (<127 U/L) 48 Troponin I (< 0.11 ng/ml) < 0.01 Ryh-H-Vjhgahskfzw Pept (<125 pg/mL) 2620 H Total Protein (6.3 - 8.2 g/dL) 6.4 Albumin (3.5 - 5.0 g/dL) 3.2 L Globulin (1.9 - 4.2 gm/dL) 3.2 Albumin/Globulin Ratio (1.1 - 2.2 %) 1.0 L Hematology CBC w Diff NO MAN DIFF REQ WBC (4.8 - 10.8 /CUMM) 6.6 RBC (4.20 - 5.40 /CUMM) 3.68 L Hgb (12.0 - 16.0 G/DL) 11.1 L Hct (37 - 47 %) 35.3 L MCV (81.0 - 99.0 FL) 96.0 MCH (27.0 - 31.0 PG) 30.2 MCHC (33.0 - 37.0 G/DL) 31.5 L RDW (11.5 - 14.5 %) 15.9 H Plt Count (130 - 400 /CUMM) 329 MPV (7.4 - 10.4 FL) 7.4 Gran % (42.2 - 75.2 %) 82.5 H Lymphocytes % (20.5 - 51.1 %) 7.7 L Monocytes % (1.7 - 9.3 %) 7.5 Eosinophils % (0 - 5 %) 2.0 Basophils % (0.0 - 2.0 %) 0.3 Absolute Granulocytes (1.4 - 6.5 /CUMM) 5.4 Absolute Lymphocytes (1.2 - 3.4 /CUMM) 0.5 L Absolute Monocytes (0.10 - 0.60 /CUMM) 0.5 Absolute Eosinophils (0.0 - 0.7 /CUMM) 0.1 Absolute Basophils (0.0 - 0.2 /CUMM) 0
[2017-11-23 13:47] VITALS: BP 130/64
[2017-11-23 22:00] VITALS: BP 142/78
[2017-11-24 06:34] VITALS: BP 140/66
--- NOTE | 2017-11-24 08:44 | PN- Att Addend ---
Attending Addendum Attending Brief Note Patient seen and examined. She is keen on going home today. I explained to her that her kidney function is worse today and she's not stable to go home. She is upset about this. On exam blood pressure is 140/66, pulse is 68, breathing at 17-19, afebrile Awake alert oriented, lungs have scattered crackles at the bases, heart is S1-S2 regular, abdomen is obese and soft, she does have bilateral pedal edema. BUN is 54 and creatinine is 3.4 which is markedly risen from 2.8. Potassium is 5.4. 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 She is here with an exacerbation of acute diastolic heart failure and the thought is that the rising BUN and creatinine are secondary to the diuresis. The IV Lasix was stopped on November 22 and on November 23 she got some fluid however her BUN and creatinine have not equilibrated yet. Given the worsening numbers for today I will just watch her, obviously no more diuretics, and will follow BUN and creatinine closely. I do not feel comfortable discharging her with these numbers.
--- NOTE | 2017-11-24 09:21 | PN- Cardiology ---
Subjective Subjective: Patient is lying in bed. She complains of feeling bloated today. She is very distressed about having to stay in the hospital another day due to her worsening renal function. Objective Vital Signs and I&Os Vital Signs Date Time Temp Pulse Resp B/P B/P Pulse O2 O2 Flow FiO2 Mean Ox Delivery Rate 11/24 0634 98.6 68 20 140/66 94 Nasal Cannula 11/23 2219 73 144/78 11/23 2219 73 142/78 11/23 2200 98.0 73 20 142/78 94 Nasal 2.0L Cannula 11/23 2138 Nasal 2.0L Cannula 11/23 1407 130/64 11/23 1347 97.8 68 20 130/64 93 Room Air Intake & Output 11/24 1600 11/24 0800 11/24 0000 11/23 1600 11/23 0800 11/23 0000 Intake Total 480 240 575 120 Output Total 200 Balance 280 240 575 120 Intake, IV 75 Intake, Oral 480 240 500 120 Number 0 0 Bowel Movements Output, Urine 200 Patient 201 lb Weight Weight Bed scale Measurement Method Physical Exam: General Appearance: well developed/nourished, alert, awake, oriented Head: normal HEENT: Normal Neck: supple, JVP normal, carotid upstrokes normal bilaterally, no masses or thyromegaly Respiratory: chest non-tender, bilateral rhonchi Cardiovascular: regular rate/rhythm, normal S1, S2, 1-2/6 systolic murmur Abdomen: normal bowel sounds, soft, non-tender Extremities: normal inspection, mild upper and lower extremity edema noted Vascular: Pulses are 2+ and equal bilaterally Neurologic: Grossly normal/nonfocal Current Medications: Current Medications Sig/Jannet Start time Last Medication Dose Route Stop Time Status Admin Acetaminophen 325 MG Q6P PRN 11/20 1899 AC PO Acetaminophen 650 MG Q6P PRN 11/20 1899 AC PO Albuterol Sulfate 2 PUF Q4 11/20 2199 AC 11/24 INH 0635 Albuterol Sulfate 3 ML Q4-6 PRN PRN 11/20 1844 AC INH Amlodipine Besylate 10 MG DAILY 11/21 1843 AC 11/23 PO 0839 Aspirin Buffered 81 MG DAILY 11/21 1843 AC 11/23 PO 0839 Budesonide/ 2 PUF BID 11/20 2100 AC 11/23 Formoterol Fumarate INH 2215 Calcium Carbonate 1,250 MG TID 11/23 1400 AC 11/23 PO 2220 Carvedilol 25 MG BID 11/20 2100 AC 11/23 PO 2219 Epoetin Elia 1,500 UNIT QTUES 11/20 1845 11/20 ME 2144 Fenofibrate 48 MG DAILY 11/21 0900 AC 11/23 PO 0839 Ferrous Sulfate 325 MG BID 11/20 2100 AC 11/23 PO 2220 Furosemide 40 MG 7:30 AM, & 4:30 PM 11/22 1630 DC 11/23 IV 0842 Heparin Sodium 5,000 UNIT Q8 11/20 2200 AC 11/24 (Porcine) SC 0634 Hydralazine HCl 100 MG TID 11/20 2100 AC 11/23 PO 2219 Hydroxyzine HCl 25 MG BID 11/20 2100 AC 11/23 PO 2219 Insulin Aspart 0 TIDAC 11/21 0800 AC 11/23 SC 1807 Insulin Detemir 24 UNITS AT BEDTIME 11/20 2100 AC 11/23 SC 2220 Nicotine 14 MG DAILY 11/21 1118 AC 11/23 TOP 0841 Omeprazole 40 MG DAILY AC 11/21 0700 AC 11/24 PO 0634 Oxycodone HCl 5 MG Q6P PRN 11/20 1900 AC 11/24 PO 0634 Polyethylene Glycol 17 GM DAILY 11/22 2300 AC 11/23 PO 0035 Pravastatin Sodium 40 MG 1700 11/21 1700 AC 11/23 PO 2052 Pregabalin 50 MG TID 11/20 2100 AC 11/23 PO 2220 Senna 187 MG AT BEDTIME 11/22 2300 AC 11/23 PO 2215 Sevelamer Carbonate 800 MG WM 11/23 1700 AC 11/23 PO 1807 Sodium Chloride 500 ML BOLUS ONE 11/23 1345 DC 11/23 IV 11/24 2023 1416 Trazodone HCl 150 MG AT BEDTIME 11/20 2100 AC 11/23 PO 2219 Results Last 48 Hrs of Labs/Mics: Laboratory Tests 11/24/17 0630: Anion Gap 9, Estimated GFR 14 L, BUN/Creatinine Ratio 15.9 11/23/17 0625: Anion Gap 6, Estimated GFR 17 L, BUN/Creatinine Ratio 15.7, PTH Intact 302.6 H Assessment/Plan Assessment/Plan Assessment: 1. Acute on chronic HFpEF 2. Acute on chronic renal insufficiency-worsened today with creatinine of 3.0 3. Hyperlipidemia 4. COPD 5. Sleep apnea 6. Diabetes 7. Iron deficiency anemia 8. Hypertension Recommendations: -Diuretics currently on hold. -The patient received some IV fluid as well. -Maintain in hospital at least another 24 hours with close monitoring of renal function. -Reassess status in the morning. Continue telemetry? Yes
[2017-11-24 14:14] VITALS: BP 160/80
[2017-11-24 22:34] VITALS: BP 140/70
[2017-11-25 06:45] VITALS: BP 150/82
--- NOTE | 2017-11-25 08:44 | PN- Att Addend ---
Attending Addendum Attending Brief Note Patient seen and examined. She remains upset about not going home. I explained to her at length the acute worsening of renal function and the implications. On exam blood pressure is 150/80, pulse is 68, breathing at 17-19, afebrile Awake alert oriented, lungs have scattered crackles at the bases, heart is S1-S2 regular, abdomen is obese and soft, she does have bilateral pedal edema. BUN is 59 and creatinine is 3.5 which is markedly risen from 2.8 on Sunday and risen by 1 point from 3.4 on Sunday. 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 She is here with an exacerbation of acute diastolic heart failure and the thought is that the rising BUN and creatinine are secondary to the diuresis. The IV Lasix was stopped on November 22 and on November 23 she got some fluid however her BUN and creatinine have not equilibrated yet. Given the worsening numbers for today I will just watch her, obviously no more diuretics, and will follow BUN and creatinine closely. I do not feel comfortable discharging her with these numbers. I will call nephrology today. She is on no nephrotoxic's and I worry that giving her fluid just exacerbate her chronic diastolic heart failure.
--- NOTE | 2017-11-25 13:26 | PN- Cardiology ---
Subjective Subjective: Patient is lying in bed comfortably. Peripheral edema slightly less today in her upper extremities. She remains very upset and depressed about having to stay in the hospital. Renal function slightly worse today Objective Vital Signs and I&Os Vital Signs Date Time Temp Pulse Resp B/P B/P Pulse O2 O2 Flow FiO2 Mean Ox Delivery Rate 11/25 1248 66 146/80 11/25 1248 66 146/80 11/25 1248 66 146/80 11/25 0645 98.1 68 20 150/82 96 Nasal Cannula 11/25 0000 Nasal 2.0L Cannula 11/24 2234 98.8 80 20 140/70 96 Nasal Cannula 11/24 2137 68 140/70 11/24 2137 68 140/70 11/24 1720 72 168/70 11/24 1600 Nasal 2.0L Cannula 11/24 1414 98.2 76 20 160/80 96 Nasal Cannula Intake & Output 11/25 1600 11/25 0800 11/25 0000 11/24 1600 11/24 0800 11/24 0000 Intake Total 240 400 600 480 240 Output Total 500 550 200 Balance -260 -150 600 280 240 Intake, Oral 240 400 600 480 240 Number 0 0 0 Bowel Movements Output, Urine 500 550 200 Patient 213 lb 201 lb Weight Weight Bed scale Bed scale Measurement Method Physical Exam: General Appearance: well developed/nourished, alert, awake, oriented Head: normal HEENT: Normal Neck: supple, JVP normal, carotid upstrokes normal bilaterally, no masses or thyromegaly Respiratory: chest non-tender, bilateral rhonchi Cardiovascular: regular rate/rhythm, normal S1, S2, 1-2/6 systolic murmur Abdomen: normal bowel sounds, soft, non-tender Extremities: normal inspection, upper extremity edema slightly less than yesterday Vascular: Pulses are 2+ and equal bilaterally Neurologic: Grossly normal/nonfocal Current Medications: Current Medications Sig/Jannet Start time Last Medication Dose Route Stop Time Status Admin Acetaminophen 325 MG Q6P PRN 11/20 1899 AC PO Acetaminophen 650 MG Q6P PRN 11/20 1899 AC PO Albuterol Sulfate 2 PUF Q4 11/20 2199 AC 11/25 INH 1250 Albuterol Sulfate 3 ML Q4-6 PRN PRN 11/20 1844 AC INH Amlodipine Besylate 10 MG DAILY 11/21 1843 AC 11/25 PO 1248 Aspirin Buffered 81 MG DAILY 11/20 1844 AC 11/25 PO 1248 Budesonide/ 2 PUF BID 11/20 2100 AC 11/25 Formoterol Fumarate INH 1250 Calcium Carbonate 1,250 MG TID 11/23 1400 AC 11/25 PO 1248 Carvedilol 25 MG BID 11/20 2100 AC 11/25 PO 1248 Epoetin Elia 1,500 UNIT QTUES 11/20 1845 AC 11/20 SC 2144 Fenofibrate 48 MG DAILY 11/21 0900 AC 11/25 PO 1248 Ferrous Sulfate 325 MG BID 11/20 2100 AC 11/25 PO 1248 Heparin Sodium 5,000 UNIT Q8 11/20 2200 AC 11/25 (Porcine) SC 0558 Hydralazine HCl 100 MG TID 11/20 2100 AC 11/25 PO 1248 Hydroxyzine HCl 25 MG BID 11/20 2100 AC 11/25 PO 1248 Insulin Aspart 0 TIDAC 11/21 0800 AC 11/25 SC 1251 Insulin Detemir 24 UNITS AT BEDTIME 11/20 2100 AC 11/24 SC 2135 Nicotine 14 MG DAILY 11/21 1118 AC 11/25 TOP 1250 Omeprazole 40 MG DAILY AC 11/21 0700 AC 11/25 PO 0557 Oxycodone HCl 5 MG Q6P PRN 11/20 1900 AC 11/25 PO 0140 Polyethylene Glycol 17 GM DAILY 11/22 2300 AC 11/25 PO 1250 Pravastatin Sodium 40 MG 1700 11/21 1700 AC 11/24 PO 1718 Pregabalin 50 MG TID 11/20 2100 AC 11/24 PO 2136 Senna 187 MG AT BEDTIME 11/22 2300 AC 11/24 PO 2137 Sevelamer Carbonate 800 MG WM 11/23 1700 AC 11/25 PO 1247 Trazodone HCl 150 MG AT BEDTIME 11/20 2100 AC 11/24 PO 2137 Results Last 48 Hrs of Labs/Mics: Laboratory Tests 11/25/17 0615: Anion Gap 7, Estimated GFR 13 L, BUN/Creatinine Ratio 16.9 11/24/17 0630: Anion Gap 9, Estimated GFR 14 L, BUN/Creatinine Ratio 15.9 Assessment/Plan Assessment/Plan Assessment: 1. Acute on chronic HFpEF 2. Acute on chronic renal insufficiency-worsened today with creatinine of 3.5 3. Hyperlipidemia 4. COPD 5. Sleep apnea 6. Diabetes 7. Iron deficiency anemia 8. Hypertension Recommendations: -Diuretics currently on hold. -No further IV fluids at the present time -Maintain in hospital at least another 24 hours with close monitoring of renal function. -Nephrology input pending -Reassess status in the morning. Continue telemetry? Yes
[2017-11-25 14:15] VITALS: BP 150/72
[2017-11-25 18:23] VITALS: BP 166/78
[2017-11-25 22:13] VITALS: BP 140/50
[2017-11-26 06:53] VITALS: BP 134/64
--- NOTE | 2017-11-26 07:26 | PN- Housestaff ---
Jorgito WILLIAMSON,[facility] 11/26/17 0725: Subjective Follow-up For: CHF Exacerbation Subjective: Patient says her breathing is much worse and she was able to sleep at night because of difficulty breathing. Also her legs are more swollen and her face feelsfeel puffy. Denies any cough, chest pain or palpitations. Review of Systems Constitutional: Reports: no symptoms. EENTM: Reports: no symptoms. Cardiovascular: Reports: orthopena, peripheral edema. Respiratory: Reports: short of breath. Gastrointestinal: Reports: no symptoms. Genitourinary: Reports: no symptoms. Musculoskeletal: Reports: no symptoms. Skin: Reports: no symptoms. Neurological/Psychological: Reports: no symptoms. Hematologic/Endocrine: Reports: no symptoms. Immunologic/Allergic: Reports: no symptoms. Objective Last 24 Hrs of Vital Signs/I&O Vital Signs Date Time Temp Pulse Resp B/P B/P Pulse O2 O2 Flow FiO2 Mean Ox Delivery Rate 11/26 1051 71 130/70 11/26 1051 71 130/70 11/26 1050 71 130/70 11/26 0800 92 Nasal 2.0L Cannula 11/26 0653 98.7 74 20 134/64 93 Nasal Cannula 11/26 0000 94 Nasal 2.0L Cannula 11/25 2213 98.8 75 20 140/50 95 Nasal 2.0L Cannula 11/25 2041 82 144/52 11/25 2041 82 144/52 11/25 1823 99.4 73 16 166/78 92 11/25 1600 92 Nasal 2.0L Cannula 11/25 1415 98.6 75 20 150/72 93 Nasal Cannula Intake & Output 11/26 1600 11/26 0800 11/26 0000 Intake Total 250 200 Output Total 250 300 Balance 0 -100 Intake, Oral 250 200 Number 0 Bowel Movements Output, Urine 250 300 Patient 216 lb Weight Weight Bed scale Measurement Method Physical Exam General Appearance: Alert, Oriented X3, Cooperative, No Acute Distress Skin: No Rashes, No Breakdown Neck: +ve JVD Cardiovascular: Regular Rate, Normal S1, Normal S2 Lungs: decreased breath sounds, rales/crackles bilateral lung bases. Abdomen: Normal Bowel Sounds, Soft, No Tenderness Extremities: No Clubbing, No Cyanosis, +2 pitting edema bilateral Current Medications: Current Medications Sig/Jannet Start time Last Medication Dose Route Stop Time Status Admin Acetaminophen 325 MG Q6P PRN 11/20 1900 AC PO Acetaminophen 650 MG Q6P PRN 11/20 1900 AC PO Albuterol Sulfate 2 PUF Q4 11/20 2200 AC 11/26 INH 1055 Albuterol Sulfate 3 ML Q4-6 PRN PRN 11/20 184 AC INH Amlodipine Besylate 10 MG DAILY 11/20 184 AC 11/26 PO 1051 Aspirin Buffered 81 MG DAILY 11/20 1844 AC 11/26 PO 1051 Budesonide/ 2 PUF BID 11/20 2100 AC 11/26 Formoterol Fumarate INH 1056 Calcium Carbonate 1,250 MG TID 11/23 1400 AC 11/26 PO 1051 Carvedilol 25 MG BID 11/20 2100 AC 11/26 PO 1051 Dextrose 25 GM ONCE ONE 11/26 0945 DC 11/26 IV 11/26 0946 1036 Epoetin Elia 1,500 UNIT QTUES 11/20 184 AC 11/20 SC 2144 Fenofibrate 48 MG DAILY 11/21 0900 AC 11/26 PO 1051 Ferrous Sulfate 325 MG BID 11/20 2100 AC 11/26 PO 1051 Furosemide 80 MG 7:30 AM, & 4:30 PM 11/26 0945 AC 11/26 IV 0945 Heparin Sodium 5,000 UNIT Q8 11/200 AC 11/26 (Porcine) SC 0746 Hydralazine HCl 100 MG TID 11/20 2100 AC 11/26 PO 1050 Hydroxyzine HCl 10 MG BID 11/25 2100 AC 11/26 PO 1051 Hydroxyzine HCl 25 MG BID 11/20 2100 DC 11/25 PO 1248 Insulin Aspart 10 UNITS ONCE ONE 11/26 0945 CAN SC 11/26 0946 Insulin Aspart 0 TIDAC 11/21 08 AC 11/25 SC 1823 Insulin Detemir 24 UNITS AT BEDTIME 11/20 2100 AC 11/25 SC 2055 Insulin Human Regular 10 UNITS ONCE ONE 11/26 0945 DC 11/26 IV 11/26 0946 1037 Nicotine 14 MG DAILY 11/21 1118 AC 11/26 TOP 1052 Omeprazole 40 MG DAILY AC 11/21 0700 AC 11/26 PO 0745 Oxycodone HCl 2.5 MG Q6P PRN 11/25 1845 AC PO Oxycodone HCl 5 MG Q6P PRN 11/20 1900 DC 11/25 PO 0140 Polyethylene Glycol 17 GM DAILY 11/22 2300 AC 11/26 PO 1049 Pravastatin Sodium 40 MG 1700 11/21 1700 AC 11/25 PO 1822 Pregabalin 50 MG TID 11/20 2099 AC 11/26 PO 1050 Senna 187 MG AT BEDTIME 11/22 2300 AC 11/25 PO 203 Sevelamer Carbonate 800 MG WM 11/23 1700 AC 11/26 PO 0945 Sodium Chloride 2 SPRAY Q4P PRN 11/26 0815 AC 11/26 BECKA 0945 Sodium Polystyrene 120 ML ONCE ONE 11/26 929 DC 11/26 Sulfonate PO 11/26 930 1054 Trazodone HCl 50 MG AT BEDTIME 11/25 2100 AC 11/25 PO 2038 Trazodone HCl 150 MG AT BEDTIME 11/20 2100 DC 11/24 PO 213 Last 24 Hrs of Lab/Olu Results Last 24 Hrs of Labs/Mics: Laboratory Tests 11/26/17629: Urinalysis LIGHT H, Urine Color YEL, Urine Clarity HAZY H, Urine pH 6.0, Ur Specific [place] 1.025, Urine Protein 100 H, Urine Ketones NEG, Urine Nitrite NEG, Urine Bilirubin NEG, Urine Urobilinogen 0.2, Ur Leukocyte Esterase MOD H, Ur Microscopic SEDIMENT EXAMINED, Urine WBC 15-25 H, Ur Epithelial Cells FEW, Urine Hemoglobin NEG, Urine Glucose NEG 11/26/17629: Urine Osmolality 319, Ur Random Creatinine 105.3, Ur Random Sodium < 5 L, Ur Random Potassium 25.7, Fraction Sodium Excret 11/26/17614: Anion Gap 5, Estimated GFR 12 L, BUN/Creatinine Ratio 17.8, CBC w Diff NO MAN DIFF REQ, RBC 3.31 L, MCV 95.2, MCH 30.7, MCHC 32.2 L, RDW 14.4, MPV 8.1, Gran % 80.5 H, Lymphocytes % 8.7 L, Monocytes % 8.2, Eosinophils % 2.2, Basophils % 0.4, Absolute Granulocytes 5.8, Absolute Lymphocytes 0.6 L, Absolute Monocytes 0.6, Absolute Eosinophils 0.2, Absolute Basophils 0 Assessment/Plan Assessment: 62 year old female with past medical history significant for COPD,MITZY, HLD, HFpEF, DM, osteoporosis, iron deficiency anemia, CKD Stage 4 recently admitted for GI bleed and symptomatic anemia underwent push enteroscopy 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 On admission was found to be in CHF exacerbation with an elevated Pro-BNP, CXR showed pulmonary vascular congestion and had elevated JVD with +2 pitting edema on examination. Also had a blood pressure of 202/84, which could be responsible for the exacerbation or vice versa. Problem list; 1. CHF exacerbation 2. ADDY on CKD 3. Hypertensive urgency - resolved 4. Chronic medical conditions - Continue monitoring on telemetry floor. - Repeat chest x-ray this morning shows - Resume IV lasix at a high dose of 80 mg twice a day. - Strict ins and outs (positive fluid balance of almost 2800 since admission), patient refused a [place] and daily weight(weight gain of almost 30 pounds since the day of admission). - Tinea supplemental oxygen, taper off as needed. - Creatinine elevated to 3.7 today. Renal ultrasound normal. - Also obtain ABGs. - Patient also had a potassium level of 6.2 this morning, EKG was obtained which did not show any ST-T wave changes. Received Kayexalate 120 mL 1 and insulin/ dextrose. Repeat BEP later today. - Low threshold for ICU transfer, if everything continues to worsen. - Vitamin D 11.2, Phos 6.1, PTH 302.6. Received Vit D 50,000 IU x 1 on 11/23. - Echo shows normal EF with no regional WM abnormalities. - Appreciate Nephrology and cardiology recommendations. - BP well controlled,will continue her home BP meds. - Continue rest of home medications. DVT prophylaxis; S/C heparin and ALPS Patient is Full code. Problem List: 1. Hypoxia 2. CHF (congestive heart failure) Pain Ratin Pain Location: NA Pain Goal: Remain pain free Pain Plan: Pain Pathway Tomorrow's Labs & Rationales: BEP(ADDY on CKD, On lasix) Denise Butler MD 11/26/17 1756: Attending MD Review Statement Attending Statement Attending MD Statement: examined this patient, discuss w/resident/PA/[employer]ARDRO[employer] IMAGE CONSULTANT, agreed w/resident/PA/WARDROBE IMAGE CONSULTANT, reviewed EMR data (avail) Attending Assessment/Plan: 62F PMH DM, HTN, HfpEF, COPD, LAINE, CKD stage 4 secondary to diabetic nephropathy , jejunal AVM s/p ablation, Hep C admitted for worsening dyspnea on exertion and with rest, with b/l LE edema and pulmonary edema on CXR. Started on IV Lasix on admission. Patient is still short of breath and having orthopnea. She is hemodynamically stable. Her creatinine is increasing and she has hyperkalemia. 1. Acute on chronic diastolic CHF 2. Cardiorenal syndrome 3. Hyperkalemia 4. ADDY Plan - Continue on telemetry - Restart IV Lasix - Medications per nephrology for hyperkalemia - I/O, daily weights - Nephrology and Cardiology consult - Ambulatory saturation - Continue home meds - DVT PPx
[2017-11-26 08:16] LABS: ABSOLUTE BASOPHIL COUNT 0 /CUMM (0.0-0.2); ABSOLUTE EOSINOPHIL COUNT 0.2 /CUMM (0.0-0.7); ABSOLUTE GRANULOCYTE CT 5.8 /CUMM (1.4-6.5); ABSOLUTE LYMPH COUNT 0.6 /CUMM (1.2-3.4); ABSOLUTE MONOCYTE COUNT 0.6 /CUMM (0.10-0.60); BASOPHIL % 0.4 % (0.0-2.0); EOSINOPHIL % 2.2 % (0-5); GRANULOCYTE % 80.5 % (42.2-75.2); HEMATOCRIT 31.5 % (37-47); MEAN CORPUSCULAR HGB 30.7 PG (27.0-31.0); MEAN CORPUSCULAR HGB CONC 32.2 G/DL (33.0-37.0); MEAN CORPUSCULAR VOLUME 95.2 FL (81.0-99.0); MEAN PLATELET VOLUME 8.1 FL (7.4-10.4); PLATELET COUNT 283 /CUMM (130-400); RBC DISTRIBUTION WIDTH 14.4 % (11.5-14.5); RED BLOOD CELL CT 3.31 /CUMM (4.20-5.40); WHITE BLOOD CELL COUNT 7.2 /CUMM (4.8-10.8)
--- NOTE | 2017-11-26 09:24 | RADIOLOGY REPORT ---
EXAMINATION: XR PORTABLE CHEST CLINICAL INFORMATION: CHF. Fluid overload. COMPARISON: Chest x-ray most recent prior dated 09/22/2017 TECHNIQUE: Portable frontal view of the chest was obtained. FINDINGS: Cardiomegaly. Central pulmonary vascular congestion. Hazy prominence of the interstitial markings compatible with interstitial edema. Patchy airspace opacities also identified in bilateral lower lungs and peripheral aspect right midlung. Findings may represent alveolar edema or superimposed pneumonia. Trace effusions suspected. Bony thorax is intact. IMPRESSION: Cardiomegaly, vascular congestion and CHF. Patchy airspace opacities bilateral lungs may represent alveolar edema or superimposed pneumonia. Follow-up chest x-ray after treatment recommended.
--- NOTE | 2017-11-26 09:47 | PN- Nephrology ---
Assessment/Plan Nephrology Assessment: CKD stage 4 with nephrotic syndrome: Clinically due to diabetic nephropathy. No ADRI-I or ARB given hyperkalemia & ADDY ADDY: I suspect acute cardiorenal syndrome due to volume overload. No emergent dialytic need unless volume overload or hyperkalemia is refractory. Check renal US and post void bladder scan x1 to r/o obstructive uropathy. Massive anasarca/volume overload/pulmonary edema; IV diuresis is warranted with high dose lasix. Given dyspnea Hyperkalemia: Due to ADDY on CKD. EKG w/o hyerkalemic changes. IV lasix should help with kaliuresis. give kayexelate as well, and shift with insulin/dextrose & albuterol. hyperphos: continue sevelamer anemia: on epogen; dose is 15,000 units qweek Suggestion: Lasix 80 mg IV BID-1st now/stat NPO for now until dyspnea a bit better Then renal diet and 1L/day fluid restriction Renal US post void bladder scan at bedside; if >200 cc needs benitez cath strict ins/outs, daily weights, daily renal labs ABG low threshold for ICU transfer Kayexelate 30g x1 now albuterol nebs, 1st now 10 units insulin/1 amp D50 repeat bmp around 2 PM Hep B panel and coags D/w medical policy specialist in detail will follow closely with you Ricardo Truong MD Subjective Subjective: c/o worsening SOB c/o worsening edema K 6.2 today, creat rising weight up 29 lbs since admit! lasix was not given over the weekend Review of Systems: c/o SOB one brief episode of chest pain Objective Vital Signs and I&Os Vital Signs Date Time Temp Pulse Resp B/P B/P Pulse O2 O2 Flow FiO2 Mean Ox Delivery Rate 11/26 0800 92 Nasal 2.0L Cannula 11/26 0653 98.7 74 20 134/64 93 Nasal Cannula 11/26 0000 94 Nasal 2.0L Cannula 11/25 2213 98.8 75 20 140/50 95 Nasal 2.0L Cannula 11/25 2041 82 144/52 11/25 204 82 144/52 11/25 1823 99.4 73 16 166/78 92 11/25 1600 92 Nasal 2.0L Cannula 11/25 1415 98.6 75 20 150/72 93 Nasal Cannula 11/25 1248 66 146/80 11/25 1248 66 146/80 11/25 1248 66 146/80 Intake & Output 11/26 1600 11/26 0400 11/25 1600 11/25 0400 11/24 1600 11/24 0400 Intake Total 250 200 163 492 3749 240 Output Total 250 300 500 550 200 Balance 0 -100 190 -150 880 240 Intake, Oral 250 200 652 885 1168 240 Number 0 0 0 0 Bowel Movements Output, Urine 250 300 500 550 200 Patient 216 lb 213 lb 201 lb Weight Weight Bed scale Bed scale Bed scale Measurement Method Physical Exam: gen: +dypsnic neck: +JVD pulm: +rales at bases with wheeze CV: S1 S2 abd: soft NT ext: 2+ pitting edemea : no benitez neuro: no asterixis Current Medications: Current Medications Sig/Jannet Start time Last Medication Dose Route Stop Time Status Admin Acetaminophen 325 MG Q6P PRN 11/20 1900 AC PO Acetaminophen 650 MG Q6P PRN 11/20 1900 AC PO Albuterol Sulfate 2 PUF Q4 11/200 AC 11/26 INH 0747 Albuterol Sulfate 3 ML Q4-6 PRN PRN 11/20 184 AC INH Amlodipine Besylate 10 MG DAILY 11/20 184 AC 11/25 PO 1248 Aspirin Buffered 81 MG DAILY 11/20 184 AC 11/25 PO 1248 Budesonide/ 2 PUF BID 11/20 2100 AC 11/25 Formoterol Fumarate INH 2041 Calcium Carbonate 1,250 MG TID 11/23 1400 AC 11/25 PO 1822 Carvedilol 25 MG BID 11/20 2100 AC 11/25 PO 2041 Dextrose 25 GM ONCE ONE 11/26 0945 UNVr IV 11/26 0946 Epoetin Elia 1,500 UNIT QTUES 11/20 184 AC 11/20 SC 2144 Fenofibrate 48 MG DAILY 11/21 0900 AC 11/25 PO 1248 Ferrous Sulfate 325 MG BID 11/20 2099 AC 11/25 PO 2039 Furosemide 80 MG 7:30 AM, & 4:30 PM 11/26 0945 AC IV Heparin Sodium 5,000 UNIT Q8 11/20 2200 AC 11/26 (Porcine) SC 0746 Hydralazine HCl 100 MG TID 11/20 2100 AC 11/25 PO 204 Hydroxyzine HCl 10 MG BID 11/25 2100 AC 11/25 PO 205 Hydroxyzine HCl 25 MG BID 11/20 2100 DC 11/25 PO 1248 Insulin Aspart 10 UNITS ONCE ONE 11/26 0945 AC SC 11/26 0946 Insulin Aspart 0 TIDAC 11/21 0800 AC 11/25 SC 182 Insulin Detemir 24 UNITS AT BEDTIME 11/20 2100 AC 11/25 SC 205 Nicotine 14 MG DAILY 11/21 1118 AC 11/25 TOP 1250 Omeprazole 40 MG DAILY AC 11/21 0700 AC 11/26 PO 0745 Oxycodone HCl 2.5 MG Q6P PRN 11/25 1845 AC PO Oxycodone HCl 5 MG Q6P PRN 11/20 1900 DC 11/25 PO 0140 Polyethylene Glycol 17 GM DAILY 11/22 2300 AC 11/25 PO 1250 Pravastatin Sodium 40 MG 1700 11/21 1700 AC 11/25 PO 1822 Pregabalin 50 MG TID 11/20 2100 AC 11/24 PO 2136 Senna 187 MG AT BEDTIME 11/22 2300 AC 11/25 PO 2038 Sevelamer Carbonate 800 MG WM 11/23 1700 AC 11/25 PO 1822 Sodium Chloride 2 SPRAY Q4P PRN 11/26 0815 AC BECKA Sodium Polystyrene 120 ML ONCE ONE 11/26 0930 DC Sulfonate PO 11/26 0931 Trazodone HCl 50 MG AT BEDTIME 11/25 2100 AC 11/25 PO 203 Trazodone HCl 150 MG AT BEDTIME 11/20 2100 DC 11/24 PO 2137 Results Pertinent Lab Results: Laboratory Tests 11/26 11/26 0630 0630 Urines Urinalysis LIGHT H Urine Color (YEL,AMB,STR) YEL Urine Clarity (CLEAR) HAZY H Urine pH (5.0 - 8.0) 6.0 Ur Specific [place] (1.001 - 1.035) 1.025 Urine Protein (NEG,<30 MG/DL) 100 H Urine Ketones (NEG) NEG Urine Nitrite (NEG) NEG Urine Bilirubin (NEG) NEG Urine Urobilinogen (0.1 - 1.0 EU/dl) 0.2 Ur Leukocyte Esterase (NEG) MOD H Ur Microscopic SEDIMENT EXAMINED Urine WBC (0 - 2 /HPF) 15-25 H Ur Epithelial Cells (NONE,FEW) FEW Urine Hemoglobin (NEG) NEG Urine Osmolality (300 - 1000 MOSM/KG) 319 Ur Random Creatinine (mg/dL) 105.3 Ur Random Sodium (30 - 90 mmol/L) < 5 L Ur Random Potassium (mmol/L) 25.7 Fraction Sodium Excret (<1% %) Urine Glucose (N MG/DL) NEG 11/26 11/25 11/24 0615 0615 0630 Chemistry Sodium (137 - 145 mmol/L) 133 L 135 L 137 Potassium (3.5 - 5.1 mmol/L) 6.2 *H 5.5 H 5.4 H Chloride (98 - 107 mmol/L) 102 101 102 Carbon Dioxide (22 - 30 mmol/L) 26 27 26 Anion Gap (5 - 16) 5 7 9 BUN (7 - 17 mg/dL) 66 H 59 H 54 H Creatinine (0.5 - 1.0 mg/dL) 3.7 H 3.5 H 3.4 H Estimated GFR (>60 ml/min) 12 L 13 L 14 L BUN/Creatinine Ratio (7 - 25 %) 17.8 16.9 15.9 [id number] Pept (<125 pg/mL) 2560 H Hematology CBC w Diff NO MAN DIFF REQ WBC (4.8 - 10.8 /CUMM) 7.2 RBC (4.20 - 5.40 /CUMM) 3.31 L Hgb (12.0 - 16.0 G/DL) 10.1 L Hct (37 - 47 %) 31.5 L MCV (81.0 - 99.0 FL) 95.2 MCH (27.0 - 31.0 PG) 30.7 MCHC (33.0 - 37.0 G/DL) 32.2 L RDW (11.5 - 14.5 %) 14.4 Plt Count (130 - 400 /CUMM) 283 MPV (7.4 - 10.4 FL) 8.1 Gran % (42.2 - 75.2 %) 80.5 H Lymphocytes % (20.5 - 51.1 %) 8.7 L Monocytes % (1.7 - 9.3 %) 8.2 Eosinophils % (0 - 5 %) 2.2 Basophils % (0.0 - 2.0 %) 0.4 Absolute Granulocytes (1.4 - 6.5 /CUMM) 5.8 Absolute Lymphocytes (1.2 - 3.4 /CUMM) 0.6 L Absolute Monocytes (0.10 - 0.60 /CUMM) 0.6 Absolute Eosinophils (0.0 - 0.7 /CUMM) 0.2 Absolute Basophils (0.0 - 0.2 /CUMM) 0
--- NOTE | 2017-11-26 12:37 | ULTRASOUND REPORT ---
EXAMINATION: US RETROPERITONEAL COMPLETE (RENAL) CLINICAL INFORMATION: Acute kidney insufficiency. Presumptive diagnosis of hydronephrosis. COMPARISON: Renal ultrasound dated 03/18/2017. TECHNIQUE: Real-time imaging of the kidneys and bladder. FINDINGS: Evaluation is significantly limited due to patient's body habitus. RIGHT KIDNEY: 10.9 x 4.8 x 5.6 cm (SAG x AP x TRV) versus 12.4 x 5.4 x 4.7 cm (03/18/2017). This apparent change in size is likely due to technical factors rather than a true change in size of the kidney. The kidney is normal in size, contour, and echogenicity. Renal cortical thickness is normal. No calculi or focal parenchymal lesions. No hydronephrosis. LEFT KIDNEY: 12.7 x 6.0 x 5.7 cm (SAG x AP x TRV) versus 13.2 x 6.4 x 5.3 cm (03/18/2017). The kidney is normal in size, contour, and echogenicity. Renal cortical thickness is normal. No calculi or focal parenchymal lesions. No hydronephrosis. BLADDER: Well-distended and normal. Bilateral ureteral jets are not demonstrated. Prevoid bladder volume is 289 mL. Postvoid bladder volume could not be obtained since the patient did not wish to void at the time of the exam. IMPRESSION: Limited exam. No hydronephrosis or other focal abnormality seen.
[2017-11-26 15:27] VITALS: BP 150/70
[2017-11-26] MEDS ORDERED: HYDROXYZINE HCL10 M1 PO (19:04)
[2017-11-26] MEDS ORDERED: RENVELA800 M1 PO (19:04)
[2017-11-26] MEDS ORDERED: CALCIUM CARBON500 M2 PO (19:04)
[2017-11-26] MEDS ORDERED: TRAZODONE HCL50 M1 PO (19:04)
--- NOTE | 2017-11-26 19:12 | Patient Discharge Instructions ---
See Addendum Discharge Instructions General Discharge Information You were seen/treated for: CHF Exacerbation ADDY on CKD Watch for these problems: Please return to the ER in case of any worsening SOB, lower extremity edema or chest pain. Special Instructions: Please follow up with your PCP, cardiology and nephrology within a week after discharge. We have increased the dose of your Lasix and started you on some new medications , please take them as directed. We have also decreased the dose of Trazodone and Atarax your were taking for anxiety and insomnia. Please take as directed. Diet Continue normal diet: Yes Recommended Diet: Heart Healthy, Renal Non Dialysis Activity Full Activity/No Limits: Yes Activity Self Limited: Yes Acute Coronary Syndrome Inclusion Criteria At DC or during hospital stay patient has or had the following: ACS DIAGNOSIS No Discharge Core Measures Meds if any: Prescribed or Continued at Discharge Meds if any: NOT Prescribed or Continued at Discharge Congestive Heart Failure Inclusion Criteria At DC or during hospital stay patient has or had the following: CHF DIAGNOSIS Yes Discharge Core Measures Meds if any: Prescribed or Continued at Discharge ADRI/ARB for EF <40% No Meds if any: NOT Prescribed or Continued at Discharge No ADRI/ARB d/t Renal Failure/Azotemia Cerebrovascular accident Inclusion Criteria At DC or during hospital stay patient has or had the following: CVA/TIA Diagnosis No Discharge Core Measures Meds if any: Prescribed or Continued at Discharge Meds if any: NOT Prescribed or Continued at Discharge Venous thromboembolism Inclusion Criteria VTE Diagnosis No VTE Type NONE VTE Confirmed by (Test) NONE Discharge Core Measures - Per Current guidelines, there needs to be overlap - treatment for the first 5 days of Warfarin therapy. - If discharged on Warfarin prior to 5 days of - overlap therapy, the patient will need to be - assessed for post discharge needs including - *Post discharge parental anticoagulation - *Warfarin and/or parental anticoagulation education - *Follow up date to check INR post discharge At least 5 days overlap therapy as Inpatient No Meds if any: Prescribed or Continued at Discharge Note: Overlap Therapy is Warfarin and Anticoagulant Meds if any: NOT Prescribed or Continued at Discharge
[2017-11-26 21:06] VITALS: BP 184/78
[2017-11-27 06:55] VITALS: BP 144/80
--- NOTE | 2017-11-27 06:55 | PN- Housestaff ---
See Addendum Subjective Follow-up For: Acute decompensated heart failure, acute kidney injury Tele-Events Since Last Visit: Normal sinus rhythm, 70s Subjective: No overnight events. Patient says she feels much better than yesterday with improved breathing. She has no chest pain, dysuria, abdominal pain, nausea, vomiting, diarrhea. Last bowel movement was yesterday. Review of Systems Constitutional: Reports: no symptoms. EENTM: Reports: no symptoms. Cardiovascular: Reports: no symptoms. Respiratory: Reports: see HPI. Gastrointestinal: Reports: no symptoms. Genitourinary: Reports: no symptoms. Musculoskeletal: Reports: no symptoms. Skin: Reports: no symptoms. Neurological/Psychological: Reports: no symptoms. Hematologic/Endocrine: Reports: no symptoms. Immunologic/Allergic: Reports: no symptoms. Objective Last 24 Hrs of Vital Signs/I&O Vital Signs Date Time Temp Pulse Resp B/P B/P Pulse O2 O2 Flow FiO2 Mean Ox Delivery Rate 11/27 0000 Nasal 2.0L Cannula 11/26 2227 80 184/78 11/26 2227 82 182/76 11/26 2106 184/78 / 1852 97 Nasal 2.0L Cannula / 1600 93 Nasal 2.0L Cannula / 1527 97.7 74 20 150/70 92 Nasal Cannula / 1456 74 150/70 / 1410 Nasal 2.0L Cannula / 1357 94 Nasal 2.0L Cannula /04 1051 71 130/70 06/04 1051 71 130/70 06/04 1050 71 130/70 /04 0800 92 Nasal 2.0L Cannula Intake & Output /05 0800 06/05 0000 /04 1600 Intake Total 120 450 300 Output Total 650 1600 1000 Balance -530 -1150 -700 Intake, Oral 120 450 300 Number 0 1 Bowel Movements Output, Urine 650 1600 1000 Patient 94.347 kg 93.157 kg Weight Weight Bed scale Bed scale Measurement Method Physical Exam General Appearance: Alert, Oriented X3, Cooperative, No Acute Distress HEENT: Atraumatic, PERRLA Cardiovascular: Regular Rate, Normal S1, Normal S2 Lungs: mild crackles Abdomen: Normal Bowel Sounds, Soft, No Tenderness Extremities: 3+ pitting edema to upper thighs Current Medications: Current Medications Sig/Jannet Start time Last Medication Dose Route Stop Time Status Admin Acetaminophen 325 MG Q6P PRN 11/20 1900 AC PO Acetaminophen 650 MG Q6P PRN 11/20 1900 AC PO Albuterol Sulfate 3 ML Q4P PRN 11/26 1400 CAN INH Albuterol Sulfate 2 PUF Q4 11/20 2200 AC 11/27 INH 0500 Albuterol Sulfate 3 ML Q4-6 PRN PRN 11/20 1845 AC 11/26 INH 1356 Amlodipine Besylate 10 MG DAILY 11/20 1844 AC 11/26 PO 1051 Aspirin Buffered 81 MG DAILY 11/20 1844 AC 11/26 PO 1051 Budesonide/ 2 PUF BID 11/20 2100 AC 11/26 Formoterol Fumarate INH 2228 Calcium Carbonate 1,250 MG TID 11/23 1400 AC 11/26 PO 2226 Carvedilol 25 MG BID 11/20 2100 AC 11/26 PO 2227 Dextrose 25 GM ONCE ONE 11/26 0945 DC 11/26 IV 11/26 0946 1036 Epoetin Elia 1,500 UNIT QTUES 11/20 184 AC 11/20 SC 2144 Fenofibrate 48 MG DAILY 11/21 0900 AC 11/26 PO 1051 Ferrous Sulfate 325 MG BID 11/20 2100 AC 11/26 PO 2226 Furosemide 80 MG 7:30 AM, & 4:30 PM 11/26 0945 AC 11/26 IV 1632 Heparin Sodium 5,000 UNIT Q8 11/20 2200 AC 11/27 (Porcine) SC 0500 Hydralazine HCl 100 MG TID 11/20 2100 AC 11/26 PO 2227 Hydroxyzine HCl 10 MG BID 11/25 2100 AC 11/26 PO 2226 Insulin Aspart 10 UNITS ONCE ONE 11/26 0945 CAN SC 11/26 0946 Insulin Aspart 0 TIDAC 11/21 0800 AC 11/25 SC 1823 Insulin Detemir 24 UNITS AT BEDTIME 11/20 2100 11/26 SC 2225 Insulin Human Regular 10 UNITS ONCE ONE 11/26 0945 DC 11/26 IV 11/26 0946 1037 Nicotine 14 MG DAILY 11/21 1118 AC 11/26 TOP 1052 Omeprazole 40 MG DAILY AC 11/21 0700 AC 11/27 PO 0500 Oxycodone HCl 2.5 MG Q6P PRN 11/25 1845 AC PO Polyethylene Glycol 17 GM DAILY 11/22 2300 AC 11/26 PO 1049 Pravastatin Sodium 40 MG 1700 11/21 1700 AC 11/26 PO 1631 Pregabalin 50 MG TID 11/20 2100 AC 11/26 PO 2225 Senna 187 MG AT BEDTIME 11/22 2300 AC 11/26 PO 2226 Sevelamer Carbonate 800 MG WM 11/23 1700 AC 11/26 PO 1632 Sodium Chloride 2 SPRAY Q4P PRN 11/26 0815 AC 11/27 BECKA 0644 Sodium Polystyrene 120 ML ONCE ONE 11/26 0930 DC 11/26 Sulfonate PO 11/26 0931 1054 Trazodone HCl 50 MG AT BEDTIME 11/25 2100 AC 11/26 PO 2226 Last 24 Hrs of Lab/Olu Results Last 24 Hrs of Labs/Mics: Laboratory Tests 11/27/17 0634: Sodium Pending, Potassium Pending, Chloride Pending, Carbon Dioxide Pending, Anion Gap Pending, BUN Pending, Creatinine Pending, BUN/Creatinine Ratio Pending , PT Pending, INR Pending, APTT Pending, Hepatitis A IgM Ab Pending, Hep Bs Antigen Pending, Hep B Core IgM Ab Conf Pending, Hepatitis C Antibody Pending 11/26/17 1432: Anion Gap 8, Estimated GFR 15 L, BUN/Creatinine Ratio 19.1 Assessment/Plan Assessment: Ms. 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 Problem list: 1. Acute decompensated heart failure 2. ADDY on CKD 3. Hypertensive urgency - resolved #Acute decompensated heart failure: Patient presented with signs and symptoms of heart failure. She was initially diuresed and then developed worsening acute kidney injury. Diuresis was held but then resumed yesterday. Breathing has since improved. TTE revealed EF greater than 65% with right ventricular systolic pressure 4550 mmHg. She has had a fluid balance -1.8 L in the past 24 hours. -Continue diuresis -Appreciate cardiology recommendations -Daily weights, I's and O's -Taper oxygen therapy #ADDY on CKD: Patient's baseline creatinine around 2.0. When she presented, creatinine was normal with an increased. It is now started to decrease, 3.7 to 3.2. Renal ultrasound was normal. This is probably prerenal azotemia in the setting of low output heart failure. -Continue diuresis as above -Avoid nephrotoxins -Appreciate nephrology recognitions #Chronic medical problems: -Continue other home medications DVT prophylaxis with heparin Consistent carbohydrate 1 diet Full code Problem List: 1. CHF (congestive heart failure) Pain Ratin Pain Location: no Pain Goal: Remain pain free Pain Plan: see a/p Tomorrow's Labs & Rationales: bep
[2017-11-27 08:17] LABS: PT 11.1 SEC (9.4-12.5); PTT 31 SEC (25-37)
--- NOTE | 2017-11-27 10:17 | PN- Nephrology ---
Assessment/Plan Nephrology Assessment: CKD stage 4 with nephrotic syndrome: Clinically due to diabetic nephropathy. No ADRI-I or ARB given hyperkalemia & ADDY ADDY: I suspect acute cardiorenal syndrome due to volume overload. Pathophysiologically there likely has been renal venous congestion contributing to compromised renal function, hence the renal improvement with diuresis. Renal function improving with IV diuresis. anasarca/volume overload/pulmonary edema; a bit better today; continue IV lasix Hyperkalemia: Due to ADDY on CKD. Resolved. Loop diuretic will help with kaliuresis hyperphos: continue sevelamer anemia: on epogen; dose is 15,000 units qweek Suggestion: continue lasix 80 mg IV BID renal diet and 1L/day fluid restriction strict ins/outs, daily weights, daily renal labs (NEEDS weight today; not yet done) change epogen to 15,000 units sc qweek (not 1500 qweek) Subjective Subjective: SOB is better today K+ normalized with diuresis & kayexelate creat improved to 3.2 from 3.7 UO 2.8L weight pending Review of Systems: tired today SOB improving +edema Objective Vital Signs and I&Os Vital Signs Date Time Temp Pulse Resp B/P B/P Pulse O2 O2 Flow FiO2 Mean Ox Delivery Rate 11/27 0858 75 144/80 06 0858 75 144/80 11/27 0858 75 144/80 11/27 0846 93 Nasal 2.0L Cannula 11/27 0800 96 Nasal 2.0L Cannula 11/27 0655 98.8 80 20 144/80 96 Nasal Cannula 11/27 0000 Nasal 2.0L Cannula 11/26 2227 80 184/78 11/26 2227 82 182/76 / 2106 184/78 11/26 1852 97 Nasal 2.0L Cannula 11/26 1600 93 Nasal 2.0L Cannula 11/26 1527 97.7 74 20 150/70 92 Nasal Cannula 11/26 1456 74 150/70 /04 1410 Nasal 2.0L Cannula 11/26 1357 94 Nasal 2.0L Cannula 11/26 1051 71 130/70 06/04 1051 71 130/70 06/04 1050 71 130/70 Intake & Output 06/05 1600 06/05 0400 /04 1600 11/26 0400 06/03 1600 11/25 0400 Intake Total 120 450 550 200 690 400 Output Total 650 1600 1250 300 500 550 Balance -530 -1150 -700 -100 190 -150 Intake, Oral 120 450 550 200 690 400 Number 0 1 0 0 Bowel Movements Output, Urine 650 1600 1250 300 500 550 Patient 208 lb 205 lb 216 lb 213 lb Weight Weight Bed scale Bed scale Bed scale Bed scale Measurement Method Current Medications: Current Medications Sig/Jannet Start time Last Medication Dose Route Stop Time Status Admin Acetaminophen 325 MG Q6P PRN 11/20 1900 AC PO Acetaminophen 650 MG Q6P PRN 11/20 1900 AC PO Albuterol Sulfate 3 ML Q4P PRN 11/26 1400 CAN INH Albuterol Sulfate 2 PUF Q4 11/200 AC 11/27 INH 0500 Albuterol Sulfate 3 ML Q4-6 PRN PRN 11/20 184 AC 11/26 INH 1356 Amlodipine Besylate 10 MG DAILY 11/20 184 AC 11/27 PO 0858 Aspirin Buffered 81 MG DAILY 11/20 184 AC 11/27 PO 0858 Budesonide/ 2 PUF BID 11/20 2100 AC 11/27 Formoterol Fumarate INH 0920 Calcium Carbonate 1,250 MG TID 11/23 1400 AC 11/27 PO 0858 Carvedilol 25 MG BID 11/20 2100 AC 11/27 PO 0858 Epoetin Elia 1,500 UNIT QTUES 11/20 184 AC 11/20 SC 2144 Fenofibrate 48 MG DAILY 11/21 0900 AC 11/27 PO 0859 Ferrous Sulfate 325 MG BID 11/20 2100 AC 11/27 PO 0858 Furosemide 80 MG 7:30 AM, & 4:30 PM 11/26 0945 11/27 IV 0808 Heparin Sodium 5,000 UNIT Q8 11/20 2200 AC 11/27 (Porcine) SC 0500 Hydralazine HCl 100 MG TID 11/20 2099 AC 11/27 PO 0858 Hydroxyzine HCl 10 MG BID 11/25 2100 AC 11/27 PO 0858 Insulin Aspart 0 TIDAC 11/21 0800 AC 11/25 SC 1823 Insulin Detemir 24 UNITS AT BEDTIME 11/20 2099 AC 11/26 SC 2225 Nicotine 14 MG DAILY 11/21 1118 AC 11/26 TOP 1052 Omeprazole 40 MG DAILY AC 11/21 0700 AC 11/27 PO 0500 Oxycodone HCl 2.5 MG Q6P PRN 11/25 1845 AC 11/27 PO 0854 Polyethylene Glycol 17 GM DAILY 11/22 2300 AC 11/26 PO 1049 Pravastatin Sodium 40 MG 1700 11/21 1700 AC 11/26 PO 1631 Pregabalin 50 MG TID 11/20 2100 AC 11/27 PO 0853 Senna 187 MG AT BEDTIME 11/22 2300 AC 11/26 PO 2226 Sevelamer Carbonate 800 MG WM 11/23 1700 AC 11/27 PO 0858 Sodium Chloride 2 SPRAY Q4P PRN 11/26 0815 AC 11/27 BECKA 0644 Trazodone HCl 50 MG AT BEDTIME 11/25 2100 AC 11/26 PO 2226 Results Pertinent Lab Results: Laboratory Tests 11/27 11/26 11/26 0634 1432 0630 Chemistry Sodium (137 - 145 mmol/L) 140 136 L Potassium (3.5 - 5.1 mmol/L) 4.7 5.0 Chloride (98 - 107 mmol/L) 102 103 Carbon Dioxide (22 - 30 mmol/L) 31 H 26 Anion Gap (5 - 16) 8 8 BUN (7 - 17 mg/dL) 62 H 61 H Creatinine (0.5 - 1.0 mg/dL) 3.1 H 3.2 H Estimated GFR (>60 ml/min) 15 L 15 L BUN/Creatinine Ratio (7 - 25 %) 20.0 19.1 Coagulation PT (9.4 - 12.5 SEC) 11.1 INR (0.90 - 1.19) 1.02 APTT (25 - 37 SEC) 31 Serology Hepatitis A IgM Ab (NONREACTIVE) NONREACTIVE Hep Bs Antigen (NONREACTIVE) NONREACTIVE Hep B Core IgM Ab Conf (NONREACTIVE) NONREACTIVE Hepatitis C Antibody (NONREACTIVE) REACTIVE H Urines Urinalysis LIGHT H Urine Color (YEL,AMB,STR) YEL Urine Clarity (CLEAR) HAZY H Urine pH (5.0 - 8.0) 6.0 Ur Specific [employer] (1.001 - 1.035) 1.025 Urine Protein (NEG,<30 MG/DL) 100 H Urine Ketones (NEG) NEG Urine Nitrite (NEG) NEG Urine Bilirubin (NEG) NEG Urine Urobilinogen (0.1 - 1.0 EU/dl) 0.2 Ur Leukocyte Esterase (NEG) MOD H Ur Microscopic SEDIMENT EXAMINED Urine WBC (0 - 2 /HPF) 15-25 H Ur Epithelial Cells (NONE,FEW) FEW Urine Hemoglobin (NEG) NEG Urine Glucose (N MG/DL) NEG 11/26 11/26 11/25 0630 0615 0615 Chemistry Sodium (137 - 145 mmol/L) 133 L 135 L Potassium (3.5 - 5.1 mmol/L) 6.2 *H 5.5 H Chloride (98 - 107 mmol/L) 102 101 Carbon Dioxide (22 - 30 mmol/L) 26 27 Anion Gap (5 - 16) 5 7 BUN (7 - 17 mg/dL) 66 H 59 H Creatinine (0.5 - 1.0 mg/dL) 3.7 H 3.5 H Estimated GFR (>60 ml/min) 12 L 13 L BUN/Creatinine Ratio (7 - 25 %) 17.8 16.9 Sxi-D-Irsynglrope Pept (<125 pg/mL) 2560 H Hematology CBC w Diff NO MAN DIFF REQ WBC (4.8 - 10.8 /CUMM) 7.2 RBC (4.20 - 5.40 /CUMM) 3.31 L Hgb (12.0 - 16.0 G/DL) 10.1 L Hct (37 - 47 %) 31.5 L MCV (81.0 - 99.0 FL) 95.2 MCH (27.0 - 31.0 PG) 30.7 MCHC (33.0 - 37.0 G/DL) 32.2 L RDW (11.5 - 14.5 %) 14.4 Plt Count (130 - 400 /CUMM) 283 MPV (7.4 - 10.4 FL) 8.1 Gran % (42.2 - 75.2 %) 80.5 H Lymphocytes % (20.5 - 51.1 %) 8.7 L Monocytes % (1.7 - 9.3 %) 8.2 Eosinophils % (0 - 5 %) 2.2 Basophils % (0.0 - 2.0 %) 0.4 Absolute Granulocytes (1.4 - 6.5 /CUMM) 5.8 Absolute Lymphocytes (1.2 - 3.4 /CUMM) 0.6 L Absolute Monocytes (0.10 - 0.60 /CUMM) 0.6 Absolute Eosinophils (0.0 - 0.7 /CUMM) 0.2 Absolute Basophils (0.0 - 0.2 /CUMM) 0 Urines Urine Osmolality (300 - 1000 MOSM/KG) 319 Ur Random Creatinine (mg/dL) 105.3 Ur Random Sodium (30 - 90 mmol/L) < 5 L Ur Random Potassium (mmol/L) 25.7 Fraction Sodium Excret (<1% %)
[2017-11-27 14:20] VITALS: BP 160/70
[2017-11-27 22:35] VITALS: BP 186/86
[2017-11-28 06:50] VITALS: BP 182/78
--- NOTE | 2017-11-28 06:58 | PN- Housestaff ---
See Addendum Subjective Follow-up For: Acute decompensated heart failure, acute kidney injury Tele-Events Since Last Visit: Normal sinus rhythm, 70s90s Subjective: No overnight events. Patient says she was in pain last night and her hip because the pain meds were stopped. She says she normally takes Percocet at home and that she needs a hip replacement. Otherwise, she feels better than yesterday. She continues to improve her breathing. She has no chest pain, abdominal pain, or other complaints. Review of Systems Constitutional: Reports: no symptoms. EENTM: Reports: no symptoms. Cardiovascular: Reports: no symptoms. Respiratory: Reports: no symptoms. Gastrointestinal: Reports: no symptoms. Genitourinary: Reports: no symptoms. Musculoskeletal: Reports: see HPI. Skin: Reports: no symptoms. Neurological/Psychological: Reports: no symptoms. Hematologic/Endocrine: Reports: no symptoms. Immunologic/Allergic: Reports: no symptoms. Objective Last 24 Hrs of Vital Signs/I&O Vital Signs Date Time Temp Pulse Resp B/P B/P Pulse O2 O2 Flow FiO2 Mean Ox Delivery Rate 11/28 0650 98.6 73 20 182/78 97 Nasal Cannula / 2235 98.2 85 20 186/86 96 Nasal Cannula / 2048 84 187/96 06/ 2048 84 187/96 06/ 1600 95 Nasal 2.0L Cannula / 1443 78 160/70 06/05 1420 98.1 80 20 160/70 95 Nasal Cannula 06/05 0858 75 144/80 06/05 0858 75 144/80 06/05 0858 75 144/80 06/05 0846 93 Nasal 2.0L Cannula 11/27 0800 96 Nasal 2.0L Cannula Intake & Output 11/28 0800 06/06 0000 06/05 1600 Intake Total 120 300 620 Output Total 600 1150 1275 Balance -480 -682 -325 Intake, Oral 120 300 620 Output, Urine 600 1150 1275 Patient 92.533 kg Weight Weight Bed scale Measurement Method Physical Exam General Appearance: Alert, Oriented X3, Cooperative, No Acute Distress Cardiovascular: Regular Rate, Normal S1, Normal S2 Lungs: Clear to Auscultation Abdomen: Normal Bowel Sounds, Soft, No Tenderness Extremities: 2+ PITTING EDEMA TO ABOVE KNEE Current Medications: Current Medications Sig/Jannet Start time Last Medication Dose Route Stop Time Status Admin Acetaminophen 1,000 MG Q8P PRN 11/27 1315 AC 11/27 PO 1442 Acetaminophen 325 MG Q6P PRN 11/20 1900 DC PO Acetaminophen 650 MG Q6P PRN 11/20 1900 DC PO Albuterol Sulfate 2 PUF Q4 11/20 2200 AC 11/28 INH 0632 Albuterol Sulfate 3 ML Q4-6 PRN PRN 11/20 1845 AC 11/26 INH 1356 Amlodipine Besylate 10 MG DAILY 11/20 184 AC 11/27 PO 0858 Aspirin Buffered 81 MG DAILY 11/20 1844 AC 11/27 PO 0858 Budesonide/ 2 PUF BID 11/20 2100 AC 11/27 Formoterol Fumarate INH 2049 Calcium Carbonate 1,250 MG TID 11/23 1400 AC 11/27 PO 2048 Carvedilol 25 MG BID 11/20 2100 AC 11/27 PO 2048 Epoetin Elia 15,000 U QTUES 11/27 1034 AC 11/27 SC 1248 Epoetin Elia 1,500 UNIT QTUES 11/20 1845 DC 11/20 SC 2144 Fenofibrate 48 MG DAILY 11/21 0900 AC 11/27 PO 0859 Ferrous Sulfate 325 MG BID 11/20 2100 AC 11/27 PO 2048 Furosemide 80 MG 7:30 AM, & 4:30 PM 11/26 0945 AC 11/27 IV 1800 Heparin Sodium 5,000 UNIT Q8 11/20 2200 AC 11/28 (Porcine) SC 0632 Hydralazine HCl 100 MG TID 11/20 2100 AC 11/27 PO 2048 Hydroxyzine HCl 10 MG BID 11/25 2100 AC 11/27 PO 2047 Insulin Aspart 0 TIDAC 11/21 0800 AC 11/27 SC 1248 Insulin Detemir 24 UNITS AT BEDTIME 11/20 2100 AC 11/27 SC 2102 Nicotine 14 MG DAILY 11/21 1118 AC 11/27 TOP 1443 Omeprazole 40 MG DAILY AC 11/21 0700 AC 11/28 PO 0631 Oxycodone HCl 2.5 MG Q6P PRN 11/25 1845 DC 11/27 PO 0854 Polyethylene Glycol 17 GM DAILY 11/22 2300 AC 11/26 PO 1049 Pravastatin Sodium 40 MG 1700 11/21 1700 AC 11/27 PO 1755 Pregabalin 50 MG TID 11/20 2100 AC 11/27 PO 210 Senna 187 MG AT BEDTIME 11/22 2300 AC / PO 204 Sevelamer Carbonate 800 MG WM 11/23 1700 AC / PO 1756 Sodium Chloride 2 SPRAY Q4P PRN 11/26 0815 AC 11/27 BECKA 0644 Trazodone HCl 50 MG AT BEDTIME 11/25 2100 AC 11/27 PO 204 Last 24 Hrs of Lab/Olu Results Last 24 Hrs of Labs/Mics: Laboratory Tests 11/28/17 0606: Sodium Pending, Potassium Pending, Chloride Pending, Carbon Dioxide Pending, Anion Gap Pending, BUN Pending, Creatinine Pending, BUN/Creatinine Ratio Pending Assessment/Plan Assessment: Ms. 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 Problem list: 1. Acute decompensated heart failure 2. ADDY on CKD 3. Hypertensive urgency #Acute decompensated heart failure: Patient presented with signs and symptoms of heart failure. She was initially diuresed and then developed worsening acute kidney injury. Diuresis was held but then resumed. Breathing has since improved. TTE revealed EF greater than 65% with right ventricular systolic pressure 4550 mmHg. She has had a fluid balance -2 L in the past 24 hours. -Continue diuresis -Appreciate cardiology recommendations -Daily weights, I's and O's -Taper oxygen therapy #ADDY on CKD: Patient's baseline creatinine around 2.0. When she presented, creatinine was normal with an increased. It is now started to decrease, 3.7 to 32.6. Renal ultrasound was normal. This is probably prerenal azotemia in the setting of low output heart failure. -Continue diuresis as above -Avoid nephrotoxins -Appreciate nephrology recommendations #Hypertension: Patient has hypertensive mostly at night, last night 186/. -Consider starting hydrochlorthiazide #Chronic medical problems: -Continue other home medications DVT prophylaxis with heparin Consistent carbohydrate 1 diet Full code Problem List: 1. CHF (congestive heart failure) Pain Ratin Pain Location: no Pain Goal: Remain pain free Pain Plan: see a/p [facility] Labs & Rationales: bep
[2017-11-28 09:47] VITALS: BP 128/54
--- NOTE | 2017-11-28 10:46 | PN- Nephrology ---
Assessment/Plan Nephrology Assessment: CKD stage 4 with nephrotic syndrome: Clinically due to diabetic nephropathy. No ADRI-I or ARB fo ADDY: I suspect acute cardiorenal syndrome due to volume overload. Pathophysiologically there likely has been renal venous congestion contributing to compromised renal function, hence the renal improvement with diuresis. Renal function improving with IV diuresis. anasarca/volume overload/pulmonary edema; gradually improving; continue IV lasix Hyperkalemia: Due to ADDY on CKD. Resolved. Loop diuretic will help with kaliuresis hyperphos: continue sevelamer anemia: on epogen; dose is 15,000 units qweek HTN: BP ok during day, worse at night. Consider splitting norvasc to 5 mg po bid Suggestion: continue lasix 80 mg IV BID. Likely needs another couple days of IV diuresis renal diet and 1L/day fluid restriction strict ins/outs, daily weights, daily renal labs (NEEDS weight today; not yet done) given elevated BP at night consider splitting amlodipine to 5 mg po bid avoid ADRI-I /ARBs given recent hyperkalemia and resolving ADYD Subjective Subjective: Edema/sob gradually improving weight 187_>216 peak-> then decreased 204 last night on IV diuretics creat improving despite IV diuresis Review of Systems: +edema SOB improving +fatigue large volume urine Objective Vital Signs and I&Os Vital Signs Date Time Temp Pulse Resp B/P B/P Pulse O2 O2 Flow FiO2 Mean Ox Delivery Rate 11/28 0947 72 128/54 11/28 0906 94 Nasal 2.0L Cannula 11/28 0837 73 182/78 11/28 0837 73 182/78 11/28 0837 73 182/78 11/28 0800 97 Nasal 2.0L Cannula 11/28 0650 98.6 73 20 182/78 97 Nasal Cannula 11/27 2235 98.2 85 20 186/86 96 Nasal Cannula / 2048 84 187/96 / 2048 84 187/96 / 1600 95 Nasal 2.0L Cannula 11/27 1443 78 160/70 06/ 1420 98.1 80 20 160/70 95 Nasal Cannula Intake & Output 11/28 1600 06/06 0400 06/05 1600 06/05 0400 / 1600 06/ 0400 Intake Total 120 300 740 450 550 200 Output Total 600 1150 1925 1600 1250 300 Balance -480 -850 -1185 -1150 -700 -100 Intake, Oral 120 300 740 450 550 200 Number 0 1 0 Bowel Movements Output, Urine 600 1150 1925 1600 1250 300 Patient 204 lb 204 lb 208 lb 205 lb 216 lb Weight Weight Bed scale Bed scale Bed scale Bed scale Bed scale Measurement Method Physical Exam: NAD ctab 2+ edema in lower legs s1 s2 no benitez no asterixis Current Medications: Current Medications Sig/Jannet Start time Last Medication Dose Route Stop Time Status Admin Acetaminophen 1,000 MG Q8P PRN 11/27 1315 AC 11/27 PO 1442 Acetaminophen 325 MG Q6P PRN 11/20 1900 DC PO Acetaminophen 650 MG Q6P PRN 11/20 1900 DC PO Albuterol Sulfate 2 PUF Q4 11/200 AC 11/28 INH 0632 Albuterol Sulfate 3 ML Q4-6 PRN PRN 11/20 1845 AC 11/26 INH 1356 Amlodipine Besylate 5 MG BID 11/28 2100 UNVr PO Amlodipine Besylate 10 MG DAILY 11/20 184 DC 11/28 PO 0837 Aspirin Buffered 81 MG DAILY 11/20 1844 AC 11/28 PO 0837 Bisacodyl 5 MG DAILY 11/28 0945 AC PO Budesonide/ 2 PUF BID 11/20 2100 AC 11/28 Formoterol Fumarate INH 0838 Calcium Carbonate 1,250 MG TID 11/23 1400 AC 11/28 PO 0837 Carvedilol 25 MG BID 11/20 2100 AC 11/28 PO 0837 Docusate Sodium 100 MG DAILY NEEDED PRN 11/28 0945 PO Epoetin Elia 15,000 U QTUES 11/27 1034 AC 11/27 SC 1248 Fenofibrate 48 MG DAILY 11/21 0900 AC 11/28 PO 0837 Ferrous Sulfate 325 MG BID 11/20 2100 AC 11/28 PO 0837 Furosemide 80 MG 7:30 AM, & 4:30 PM 11/26 0945 AC 11/28 IV 0811 Heparin Sodium 5,000 UNIT Q8 11/20 2200 AC 11/28 (Porcine) SC 0632 Hydralazine HCl 100 MG TID 11/20 2099 AC 11/28 PO 0837 Hydroxyzine HCl 10 MG BID 11/25 2100 AC 11/28 PO 0837 Insulin Aspart 0 TIDAC 11/21 0800 AC 11/28 SC 0811 Insulin Detemir 24 UNITS AT BEDTIME 11/20 2100 AC 11/27 SC 2102 Nicotine 14 MG DAILY 11/21 1118 AC 11/27 TOP 1443 Omeprazole 40 MG DAILY AC 11/21 0700 AC 11/28 PO 0631 Oxycodone HCl 7.5 MG Q6 PRN 11/28 0700 AC PO Oxycodone HCl 2.5 MG Q6P PRN 11/25 1845 DC 11/27 PO 0854 Polyethylene Glycol 17 GM DAILY 11/22 2300 DC 11/26 PO 1049 Pravastatin Sodium 40 MG 1700 11/21 1700 AC 11/27 PO 1755 Pregabalin 50 MG TID 11/20 2100 AC 11/28 PO 0840 Senna 187 MG AT BEDTIME 11/22 2300 AC 11/27 PO 2048 Sevelamer Carbonate 800 MG WM 11/23 1700 AC 11/28 PO 0836 Sodium Chloride 2 SPRAY Q4P PRN 11/26 0815 AC 11/27 BECKA 0644 Trazodone HCl 50 MG AT BEDTIME 11/25 2100 AC 11/27 PO 2047 Results Pertinent Lab Results: Laboratory Tests 11/28 11/27 11/27 11/26 0606 0634 0600 1432 Chemistry Sodium (137 - 145 mmol/L) 140 140 136 L Potassium (3.5 - 5.1 mmol/L) 4.6 4.7 5.0 Chloride (98 - 107 mmol/L) 102 102 103 Carbon Dioxide (22 - 30 mmol/L) 33 H 31 H 26 Anion Gap (5 - 16) 5 8 8 BUN (7 - 17 mg/dL) 60 H 62 H 61 H Creatinine (0.5 - 1.0 mg/dL) 2.6 H 3.1 H 3.2 H Estimated GFR (>60 ml/min) 19 L 15 L 15 L BUN/Creatinine Ratio (7 - 25 %) 23.1 20.0 19.1 Coagulation PT (9.4 - 12.5 SEC) 11.1 INR (0.90 - 1.19) 1.02 APTT (25 - 37 SEC) 31 Serology Hepatitis A IgM Ab (NONREACTIVE) NONREACTIVE Hep Bs Antigen (NONREACTIVE) NONREACTIVE Hep B Core IgM Ab Conf (NONREACTIVE) NONREACTIVE Hepatitis C Antibody (NONREACTIVE) REACTIVE H HCV RNA (PCR) IUs/ml Cancelled HCV RNA PCR log IUs/ml Cancelled 11/26 11/26 0630 0630 Urines Urinalysis LIGHT H Urine Color (YEL,AMB,STR) YEL Urine Clarity (CLEAR) HAZY H Urine pH (5.0 - 8.0) 6.0 Ur Specific [place] (1.001 - 1.035) 1.025 Urine Protein (NEG,<30 MG/DL) 100 H Urine Ketones (NEG) NEG Urine Nitrite (NEG) NEG Urine Bilirubin (NEG) NEG Urine Urobilinogen (0.1 - 1.0 EU/dl) 0.2 Ur Leukocyte Esterase (NEG) MOD H Ur Microscopic SEDIMENT EXAMINED Urine WBC (0 - 2 /HPF) 15-25 H Ur Epithelial Cells (NONE,FEW) FEW Urine Hemoglobin (NEG) NEG Urine Osmolality (300 - 1000 MOSM/KG) 319 Ur Random Creatinine (mg/dL) 105.3 Ur Random Sodium (30 - 90 mmol/L) < 5 L Ur Random Potassium (mmol/L) 25.7 Fraction Sodium Excret (<1% %) Urine Glucose (N MG/DL) NEG 11/26 0615 Chemistry Sodium (137 - 145 mmol/L) 133 L Potassium (3.5 - 5.1 mmol/L) 6.2 *H Chloride (98 - 107 mmol/L) 102 Carbon Dioxide (22 - 30 mmol/L) 26 Anion Gap (5 - 16) 5 BUN (7 - 17 mg/dL) 66 H Creatinine (0.5 - 1.0 mg/dL) 3.7 H Estimated GFR (>60 ml/min) 12 L BUN/Creatinine Ratio (7 - 25 %) 17.8 Hematology CBC w Diff NO MAN DIFF REQ WBC (4.8 - 10.8 /CUMM) 7.2 RBC (4.20 - 5.40 /CUMM) 3.31 L Hgb (12.0 - 16.0 G/DL) 10.1 L Hct (37 - 47 %) 31.5 L MCV (81.0 - 99.0 FL) 95.2 MCH (27.0 - 31.0 PG) 30.7 MCHC (33.0 - 37.0 G/DL) 32.2 L RDW (11.5 - 14.5 %) 14.4 Plt Count (130 - 400 /CUMM) 283 MPV (7.4 - 10.4 FL) 8.1 Gran % (42.2 - 75.2 %) 80.5 H Lymphocytes % (20.5 - 51.1 %) 8.7 L Monocytes % (1.7 - 9.3 %) 8.2 Eosinophils % (0 - 5 %) 2.2 Basophils % (0.0 - 2.0 %) 0.4 Absolute Granulocytes (1.4 - 6.5 /CUMM) 5.8 Absolute Lymphocytes (1.2 - 3.4 /CUMM) 0.6 L Absolute Monocytes (0.10 - 0.60 /CUMM) 0.6 Absolute Eosinophils (0.0 - 0.7 /CUMM) 0.2 Absolute Basophils (0.0 - 0.2 /CUMM) 0
[2017-11-28 14:22] VITALS: BP 178/70
[2017-11-28 17:34] VITALS: BP 184/68
[2017-11-28 21:35] VITALS: BP 150/68
[2017-11-29 05:53] VITALS: BP 164/64
--- NOTE | 2017-11-29 07:05 | PN- Housestaff ---
See Addendum Subjective Follow-up For: Acute decompensated heart failure, cardiorenal syndrome Tele-Events Since Last Visit: Normal sinus rhythm, 6090s Subjective: No overnight events. The patient's symptoms continue to improve. However, she complains that she is bored and would like to go home so she can pay her bills. She says she will stay until tomorrow but that is it. She would also like to have the quality assurance monitor body removed. No other complaints. Review of Systems Constitutional: Reports: no symptoms. EENTM: Reports: no symptoms. Cardiovascular: Reports: see HPI. Respiratory: Reports: no symptoms. Gastrointestinal: Reports: no symptoms. Genitourinary: Reports: no symptoms. Musculoskeletal: Reports: no symptoms. Skin: Reports: no symptoms. Neurological/Psychological: Reports: no symptoms. Hematologic/Endocrine: Reports: no symptoms. Immunologic/Allergic: Reports: no symptoms. Objective Last 24 Hrs of Vital Signs/I&O Vital Signs Date Time Temp Pulse Resp B/P B/P Pulse O2 O2 Flow FiO2 Mean Ox Delivery Rate 11/29 0553 98.7 78 20 164/64 97 Nasal Cannula 11/28 2144 80 150/68 11/28 2143 80 150/68 11/28 2135 98.8 80 20 150/68 93 Nasal Cannula 11/28 2048 Nasal 2.0L Cannula 11/28 2000 96 Nasal 2.0L Cannula 11/28 1747 75 184/68 11/28 1734 78 184/68 11/28 1600 97 Nasal 2.0L Cannula 11/28 1422 97.5 75 20 178/70 97 Nasal 2.0L Cannula 11/28 1411 80 178/70 11/28 0947 72 128/54 11/28 0906 94 Nasal 2.0L Cannula 11/28 0837 73 182/78 11/28 0837 73 182/78 11/28 0837 73 182/78 11/28 0800 97 Nasal 2.0L Cannula Intake & Output 11/29 0800 11/29 0000 11/28 1600 Intake Total 120 120 600 Output Total 220 689 3886 Balance -580 -530 -700 Intake, Oral 120 120 600 Output, Urine 858 643 8184 Patient 92.618 kg Weight Weight Bed scale Measurement Method Physical Exam General Appearance: Alert, Oriented X3, Cooperative, No Acute Distress Cardiovascular: Regular Rate, Normal S1, Normal S2 Lungs: Clear to Auscultation Abdomen: Normal Bowel Sounds, Soft, No Tenderness Extremities: 1+ pitting edema to thighs Current Medications: Current Medications Sig/Jannet Start time Last Medication Dose Route Stop Time Status Admin Acetaminophen 1,000 MG Q8P PRN 11/27 1315 AC 11/27 PO 1442 Albuterol Sulfate 2 PUF Q4 11/200 AC 11/29 INH 0610 Albuterol Sulfate 3 ML Q4-6 PRN PRN 11/20 1845 AC 11/28 INH 2000 Amlodipine Besylate 5 MG BID 11/28 2100 AC 11/28 PO 1747 Amlodipine Besylate 10 MG DAILY 11/20 1844 DC 11/28 PO 0837 Aspirin Buffered 81 MG DAILY 11/20 1844 AC 11/28 PO 0837 Bisacodyl 5 MG DAILY 11/28 0945 AC 11/28 PO 1154 Budesonide/ 2 PUF BID 11/20 2100 AC 11/28 Formoterol Fumarate INH 2147 Calcium Carbonate 1,250 MG TID 11/23 1400 AC 11/28 PO 2143 Carvedilol 25 MG BID 11/20 2100 AC 11/28 PO 2144 Docusate Sodium 100 MG DAILY NEEDED PRN 11/28 0945 PO Epoetin Elia 15,000 U QTUES 11/27 1034 AC 11/27 SC 1248 Fenofibrate 48 MG DAILY 11/21 0900 AC 11/28 PO 0837 Ferrous Sulfate 325 MG BID 11/20 2100 AC 11/28 PO 2143 Furosemide 80 MG 7:30 AM, & 4:30 PM 11/26 0945 AC 11/28 IV 1700 Heparin Sodium 5,000 UNIT Q8 11/20 2200 AC 11/29 (Porcine) SC 0608 Hydralazine HCl 100 MG TID 11/20 2100 AC 11/28 PO 2143 Hydroxyzine HCl 10 MG BID 11/25 2100 AC 11/28 PO 2143 Insulin Aspart 0 TIDAC 11/21 0800 AC 11/28 SC 1700 Insulin Detemir 24 UNITS AT BEDTIME 11/20 2100 AC 11/28 SC 2144 Nicotine 14 MG DAILY 11/21 1118 AC 11/28 TOP 1411 Omeprazole 40 MG DAILY AC 11/21 0700 AC 11/29 PO 0608 Oxycodone HCl 7.5 MG Q6 PRN 06/06 0700 AC 11/29 PO 0028 Polyethylene Glycol 17 GM DAILY 11/22 2300 DC 11/26 PO 1049 Pravastatin Sodium 40 MG 1700 11/21 1700 AC 11/28 PO 1700 Pregabalin 50 MG TID 11/20 2100 AC 11/28 PO 2144 Senna 187 MG AT BEDTIME 11/22 2300 AC 11/28 PO 2144 Sevelamer Carbonate 800 MG WM 11/23 1700 AC 11/28 PO 1700 Sodium Chloride 2 SPRAY Q4P PRN 11/26 0815 AC 11/27 BECKA 0644 Trazodone HCl 50 MG AT BEDTIME 11/25 2100 AC 11/28 PO 2143 Last 24 Hrs of Lab/Olu Results Last 24 Hrs of Labs/Mics: Laboratory Tests 11/29/17 0602: Sodium Pending, Potassium Pending, Chloride Pending, Carbon Dioxide Pending, Anion Gap Pending, BUN Pending, Creatinine Pending, BUN/Creatinine Ratio Pending Assessment/Plan Assessment: Ms. 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 Problem list: 1. Acute decompensated heart failure 2. Cardiorenal syndrome 3. Hypertensive urgency 4. False-positive HCV antibody #Acute decompensated heart failure: Patient presented with signs and symptoms of heart failure. She was initially diuresed and then developed worsening acute kidney injury. Diuresis was held but then resumed. Breathing has since improved. TTE revealed EF greater than 65% with right ventricular systolic pressure 4550 mmHg. She has had a fluid balance -1.7 L in the past 24 hours. -Continue diuresis -Appreciate cardiology recommendations -Daily weights, I's and O's -Taper oxygen therapy #Cardiorenal syndrome: Patient's baseline creatinine around 2.0. When she presented, creatinine was normal with an increased. It is now started to decrease, 3.7 to 2.6. Renal ultrasound was normal. This is probably an acute kidney injury in the setting of low output heart failure. -Continue diuresis as above -Avoid nephrotoxins -Appreciate nephrology recommendations #Hypertension: Patient has hypertension mostly at night that is difficult to control. -Continue amlodipine 5 mg twice daily -Continue hydralazine, carvedilol -Avoiding ADRI inhibitors per nephrology #False positive hepatitis C antibody: Patient was noted to have positive hepatitis C antibody but negative HCV RNA. This likely means she cleared the virus or it is a false positive. No treatment is necessary at this time. #Chronic medical problems: -Continue other home medications DVT prophylaxis with heparin Consistent carbohydrate 1 diet Full code Problem List: 1. CHF (congestive heart failure) Pain Ratin Pain Location: no Pain Goal: Remain pain free Pain Plan: see a/p Tomorrow's Labs & Rationales: bep
[2017-11-29 09:40] VITALS: BP 132/72
--- NOTE | 2017-11-29 12:05 | PN- Nephrology ---
Assessment/Plan Nephrology Assessment: CKD stage 4 with nephrotic syndrome: Clinically due to diabetic nephropathy. No ADRI-I or ARB for now given resolving ADDY, recent hyperkalemia. ADDY: I suspect acute cardiorenal syndrome due to volume overload. Pathophysiologically there likely has been renal venous congestion contributing to compromised renal function, hence the renal improvement with diuresis. Renal function improved with IV diuresis. anasarca/volume overload/pulmonary edema; gradually improving; continue IV lasix, but would increase to 80 mg IV TID Hyperkalemia: Due to ADDY on CKD. Resolved. Loop diuretic will help with kaliuresis hyperphos: continue sevelamer anemia: on epogen; dose is 15,000 units qweek met alk: likely diuretic induced intravascular contraction. As remains anasarcic would continue IV diuresis. If bicarb rises closer to 40 then acetazolamide can be considered; but no need currently. Suggestion: continue lasix 80 mg IV TID renal diet and 1L/day fluid restriction strict ins/outs, daily weights, daily renal labs avoid ADRI-I /ARBs for now given recent hyperkalemia and resolving ADDY; this can be reconsidered in near future once volume status improved & ready to change to PO diuretics Subjective Subjective: Remains edematous weight down 204->202 lbs (peak was 219, but baseline weight ~180 lbs) sob improved Review of Systems: no sob ++edema no CP making lots of urine Objective Vital Signs and I&Os Vital Signs Date Time Temp Pulse Resp B/P B/P Pulse O2 O2 Flow FiO2 Mean Ox Delivery Rate 11/29 1100 85 Room Air 11/29 0940 75 132/72 92 Room Air 11/29 0859 75 132/72 11/29 0858 75 132/72 11/29 0856 75 132/72 / 0800 Room Air 11/29 0553 98.7 78 20 164/64 97 Nasal Cannula 11/28 2144 80 150/68 11/28 2143 80 150/68 11/28 2135 98.8 80 20 150/68 93 Nasal Cannula 11/288 Nasal 2.0L Cannula 11/29 1999 96 Nasal 2.0L Cannula 11/28 1747 75 184/68 11/28 1734 78 184/68 11/28 1600 97 Nasal 2.0L Cannula 11/28 1422 97.5 75 20 178/70 97 Nasal 2.0L Cannula 11/28 1411 80 178/70 Intake & Output 11/29 1600 11/29 0400 11/28 1600 11/28 0400 11/27 1600 11/27 0400 Intake Total 120 120 720 300 740 450 Output Total 118 380 9371 1150 1925 1600 Balance -580 -530 -1180 -850 -1185 -1150 Intake, Oral 120 120 720 300 740 450 Number 0 1 Bowel Movements Output, Urine 520 751 4145 1150 1925 1600 Patient 202 lb 204 lb 204 lb 208 lb Weight Weight Chair scale Bed scale Bed scale Bed scale Measurement Method Physical Exam: NAD CTAB S1 S2 3+ edema, +edema in thighs as well soft NT +distended no benitez Current Medications: Current Medications Sig/Jannet Start time Last Medication Dose Route Stop Time Status Admin Acetaminophen 1,000 MG Q8P PRN 11/27 1315 AC 11/27 PO 1442 Albuterol Sulfate 2 PUF Q4 11/20 2200 AC 11/29 INH 0907 Albuterol Sulfate 3 ML Q4-6 PRN PRN 11/20 1845 AC 11/29 INH 1058 Amlodipine Besylate 5 MG BID 11/28 2100 AC 11/29 PO 0856 Aspirin Buffered 81 MG DAILY 11/20 1844 AC 11/29 PO 0856 Bisacodyl 5 MG DAILY 11/28 0945 AC 11/29 PO 0859 Budesonide/ 2 PUF BID 11/20 2100 AC 11/29 Formoterol Fumarate INH 0906 Calcium Carbonate 1,250 MG TID 11/23 1400 AC 11/29 PO 0859 Carvedilol 25 MG BID 11/20 2100 AC 11/29 PO 0858 Docusate Sodium 100 MG DAILY NEEDED PRN 11/28 0945 AC PO Epoetin Elia 15,000 U QTUES 11/27 1034 AC 11/27 SC 1248 Fenofibrate 48 MG DAILY 11/21 0900 AC 11/29 PO 0855 Ferrous Sulfate 325 MG BID 11/20 2100 AC 11/29 PO 0856 Furosemide 80 MG TID 11/29 1400 UNVr IV Furosemide 80 MG 7:30 AM, & 4:30 PM 11/26 0945 DC 11/29 IV 0901 Heparin Sodium 5,000 UNIT Q8 11/20 2200 AC 11/29 (Porcine) SC 0608 Hydralazine HCl 100 MG TID 11/20 2100 AC 11/29 PO 0859 Hydroxyzine HCl 10 MG BID 11/25 2100 AC 11/29 PO 0859 Insulin Aspart 0 TIDAC 11/21 0800 AC 11/29 SC 0905 Insulin Detemir 24 UNITS AT BEDTIME 11/20 2100 AC 11/28 SC 2144 Nicotine 14 MG DAILY 11/21 1118 AC 11/29 TOP 0900 Omeprazole 40 MG DAILY AC 11/21 0700 AC 11/29 PO 0608 Oxycodone HCl 7.5 MG Q6 PRN 11/28 0700 AC 11/29 PO 1135 Pravastatin Sodium 40 MG 1700 11/21 1700 AC 11/28 PO 1700 Pregabalin 50 MG TID 11/20 2100 AC 11/29 PO 0911 Senna 187 MG AT BEDTIME 11/22 2300 AC 11/28 PO 2144 Sevelamer Carbonate 800 MG WM 11/23 1700 AC 11/29 PO 0859 Sodium Chloride 2 SPRAY Q4P PRN 11/26 0815 AC 11/27 BECKA 0644 Trazodone HCl 50 MG AT BEDTIME 11/25 2100 AC 11/28 PO 2143 Results Pertinent Lab Results: Laboratory Tests 11/29 11/28 11/27 11/27 0602 0606 0634 0600 Chemistry Sodium (137 - 145 mmol/L) 140 140 140 Potassium (3.5 - 5.1 mmol/L) 4.9 4.6 4.7 Chloride (98 - 107 mmol/L) 101 102 102 Carbon Dioxide (22 - 30 mmol/L) 34 H 33 H 31 H Anion Gap (5 - 16) 6 5 8 BUN (7 - 17 mg/dL) 59 H 60 H 62 H Creatinine (0.5 - 1.0 mg/dL) 2.6 H 2.6 H 3.1 H Estimated GFR (>60 ml/min) 19 L 19 L 15 L BUN/Creatinine Ratio (7 - 25 %) 22.7 23.1 20.0 Coagulation PT (9.4 - 12.5 SEC) 11.1 INR (0.90 - 1.19) 1.02 APTT (25 - 37 SEC) 31 Serology Hepatitis A IgM Ab (NONREACTIVE) NONREACTIVE Hep Bs Antigen (NONREACTIVE) NONREACTIVE Hep B Core IgM Ab Conf (NONREACTIVE) NONREACTIVE Hepatitis C Antibody (NONREACTIVE) REACTIVE H HCV RNA (PCR) IUs/ml Cancelled HCV RNA PCR log IUs/ml Cancelled 11/26 1432 Chemistry Sodium (137 - 145 mmol/L) 136 L Potassium (3.5 - 5.1 mmol/L) 5.0 Chloride (98 - 107 mmol/L) 103 Carbon Dioxide (22 - 30 mmol/L) 26 Anion Gap (5 - 16) 8 BUN (7 - 17 mg/dL) 61 H Creatinine (0.5 - 1.0 mg/dL) 3.2 H Estimated GFR (>60 ml/min) 15 L BUN/Creatinine Ratio (7 - 25 %) 19.1
[2017-11-29 14:35] VITALS: BP 156/64
[2017-11-29 22:43] VITALS: BP 152/62
[2017-11-30 06:33] VITALS: BP 148/62
--- NOTE | 2017-11-30 07:14 | PN- Housestaff ---
See Addendum Subjective Follow-up For: Acute decomp sedated heart failure, cardiorenal syndrome Tele-Events Since Last Visit: No telemetry Subjective: No overnight events. Patient says she did not sleep well. Otherwise, her breathing is improved and she is off of oxygen. She has no chest pain or other complaints. Review of Systems Constitutional: Reports: no symptoms. EENTM: Reports: no symptoms. Cardiovascular: Reports: no symptoms. Respiratory: Reports: no symptoms. Gastrointestinal: Reports: no symptoms. Genitourinary: Reports: no symptoms. Musculoskeletal: Reports: no symptoms. Skin: Reports: no symptoms. Neurological/Psychological: Reports: no symptoms. Hematologic/Endocrine: Reports: no symptoms. Immunologic/Allergic: Reports: no symptoms. Objective Last 24 Hrs of Vital Signs/I&O Vital Signs Date Time Temp Pulse Resp B/P B/P Pulse O2 O2 Flow FiO2 Mean Ox Delivery Rate 11/30 0633 98.7 74 18 148/62 95 Nasal Cannula 11/29 2243 98.4 82 18 152/62 93 Nasal Cannula / 2205 Room Air 06/ 2136 74 156/64 06/07 2136 74 156/64 06/ 2135 74 156/64 06/07 1906 92 Room Air 06/07 1600 Room Air 06/07 1435 98.6 74 18 156/64 90 Room Air 06/07 1433 74 156/70 06/07 1100 85 Room Air 06/07 0940 75 132/72 92 Room Air 06/07 0859 75 132/72 /07 0858 75 132/72 /07 0856 75 132/72 /07 0800 Room Air Intake & Output 08 0800 /08 0000 /07 1600 Intake Total 180 540 240 Output Total 650 1050 700 Balance -470 -510 -460 Intake, Oral 180 540 240 Output, Urine 650 1050 700 Patient 91.626 kg 91.626 kg Weight Weight Bed scale Chair scale Measurement Method Physical Exam General Appearance: Alert, Oriented X3, Cooperative, No Acute Distress Cardiovascular: Regular Rate, Normal S1, Normal S2 Lungs: Clear to Auscultation Abdomen: Normal Bowel Sounds, Soft, No Tenderness Extremities: 1+ pitting edema to thighs Current Medications: Current Medications Sig/Jannet Start time Last Medication Dose Route Stop Time Status Admin Acetaminophen 1,000 MG Q8P PRN 11/27 1315 AC 11/27 PO 1442 Albuterol Sulfate 2 PUF Q4 11/20 2200 AC 11/30 INH 0620 Albuterol Sulfate 3 ML Q4-6 PRN PRN 11/20 1845 AC 11/29 INH 1058 Amlodipine Besylate 5 MG BID 11/28 2100 AC 11/29 PO 2136 Aspirin Buffered 81 MG DAILY 11/20 1844 AC 11/29 PO 0856 Bisacodyl 5 MG DAILY 11/28 0945 AC 11/29 PO 0859 Budesonide/ 2 PUF BID 11/20 2100 AC 11/29 Formoterol Fumarate INH 2136 Calcium Carbonate 1,250 MG TID 11/23 1400 AC 11/29 PO 2135 Carvedilol 25 MG BID 11/20 2100 AC 11/29 PO 2136 Docusate Sodium 100 MG DAILY NEEDED PRN 11/28 0945 AC PO Epoetin Elia 15,000 U QTUES 11/27 1034 AC 11/27 SC 1248 Fenofibrate 48 MG DAILY 11/21 0900 AC 11/29 PO 0855 Ferrous Sulfate 325 MG BID 11/20 2100 AC 11/29 PO 2136 Furosemide 80 MG TID 11/29 1400 AC 11/29 IV 2136 Furosemide 80 MG 7:30 AM, & 4:30 PM 11/26 0945 DC 11/29 IV 0901 Heparin Sodium 5,000 UNIT Q8 11/200 AC 11/30 (Porcine) SC 0541 Hydralazine HCl 100 MG TID 11/20 2100 AC 11/29 PO 2135 Hydroxyzine HCl 10 MG BID 11/25 2100 AC 11/29 PO 2135 Insulin Aspart 0 TIDAC 11/21 08 AC 11/29 SC 1840 Insulin Detemir 24 UNITS AT BEDTIME 11/20 2100 AC 11/29 SC 2144 Nicotine 14 MG DAILY 11/21 1118 AC 11/29 TOP 0900 Omeprazole 40 MG DAILY AC 11/21 07 AC 11/30 PO 0541 Oxycodone HCl 7.5 MG Q6 PRN 11/28 0700 AC 11/30 PO 0541 Pravastatin Sodium 40 MG 1700 11/21 1700 AC 11/29 PO 1805 Pregabalin 50 MG TID 11/20 2100 AC 11/29 PO 2137 Senna 187 MG AT BEDTIME 11/22 2300 AC 11/29 PO 2136 Sevelamer Carbonate 800 MG WM 11/23 1700 AC 11/29 PO 1805 Sodium Chloride 2 SPRAY Q4P PRN 11/26 0815 AC 11/27 BECKA 0644 Trazodone HCl 50 MG AT BEDTIME 11/25 2100 AC 11/29 PO 2135 Last 24 Hrs of Lab/Olu Results Last 24 Hrs of Labs/Mics: Laboratory Tests 11/30/17 0610: Sodium Pending, Potassium Pending, Chloride Pending, Carbon Dioxide Pending, Anion Gap Pending, BUN Pending, Creatinine Pending, BUN/Creatinine Ratio Pending Assessment/Plan Assessment: Ms. 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 Problem list: 1. Acute decompensated heart failure 2. Cardiorenal syndrome 3. Hypertensive urgency 4. False-positive HCV antibody #Acute decompensated heart failure: Patient presented with signs and symptoms of heart failure. She was initially diuresed and then developed worsening acute kidney injury. Diuresis was held but then resumed. Breathing has since improved. TTE revealed EF greater than 65% with right ventricular systolic pressure 4550 mmHg. She has had a fluid balance -1.5 L in the past 24 hours. Patient said yesterday that she very much wanted to leave today but now seems willing to stay for further diuresis. We will discuss with nephrology. -Continue diuresis -Appreciate cardiology recommendations -Daily weights, I's and O's -Taper oxygen therapy #Cardiorenal syndrome: Patient's baseline creatinine around 2.0. When she presented, creatinine was normal with an increased. It is now started to decrease, 3.7 to 2.6. Renal ultrasound was normal. This is probably an acute kidney injury in the setting of low output heart failure. -Continue diuresis as above -Avoid nephrotoxins -Appreciate nephrology recommendations #Hypertension: Patient has hypertension mostly at night that is difficult to control. -Continue amlodipine 5 mg twice daily -Continue hydralazine, carvedilol -Avoiding ADRI inhibitors per nephrology #False positive hepatitis C antibody: Patient was noted to have positive hepatitis C antibody but negative HCV RNA. This likely means she cleared the virus or it is a false positive. No treatment is necessary at this time. #Chronic medical problems: -Continue other home medications DVT prophylaxis with heparin Consistent carbohydrate 1 diet Full code Problem List: 1. CHF (congestive heart failure) Pain Ratin Pain Location: no pain Pain Goal: Remain pain free Pain Plan: see a/p Tomorrow's Labs & Rationales: bep
--- NOTE | 2017-11-30 12:19 | PN- Nephrology ---
Assessment/Plan Nephrology Assessment: 1. CKD: severe, stage 4, presumed due to DM & HTN 2. ADDY: prob cardiorenal; stable w/o HD need 2. CHF: improving w diuresis Suggestion: continue IV Lasix Subjective Subjective: SOB better - denies FLORES or orthopnea No uremic sx Legs still swollen Objective Vital Signs and I&Os Vital Signs Date Time Temp Pulse Resp B/P B/P Pulse O2 O2 Flow FiO2 Mean Ox Delivery Rate 11/30 0835 74 148/62 11/30 0835 74 148/62 11/30 0835 74 148/62 11/30 0800 Nasal 2.0L Cannula 11/30 0633 98.7 74 18 148/62 95 Nasal Cannula 11/29 2243 98.4 82 18 152/62 93 Nasal Cannula 11/29 2205 Room Air / 2136 74 156/64 / 2136 74 156/64 / 2135 74 156/64 / 1906 92 Room Air / 1600 Room Air / 1435 98.6 74 18 156/64 90 Room Air / 1433 74 156/70 Intake & Output / 1600 /08 0400 /07 1600 06/07 0400 /06 1600 /06 0400 Intake Total 180 540 360 120 720 300 Output Total 650 1050 4073 664 7692 1150 Balance -470 -510 -1040 -530 -1180 -850 Intake, Oral 180 540 360 120 720 300 Output, Urine 650 1050 5869 346 0490 1150 Patient 202 lb 202 lb 204 lb 204 lb Weight Weight Bed scale Chair scale Bed scale Bed scale Measurement Method Physical Exam General Appearance: well developed/nourished, no apparent distress, alert Head: atraumatic, normal appearance Ears, Nose, Throat: normal ENT inspection Neck: normal inspection Respiratory: normal breath sounds, quiet respiration, lungs clear Cardiovascular: regular rate/rhythm, friction rub (none) Abdomen: soft, non-tender, no organomegaly Extremities: swelling Neurologic/Psychiatric: awake, alert, religious assistant II-XII nml as tested Skin: intact, normal color Current Medications: Current Medications Sig/Jannet Start time Last Medication Dose Route Stop Time Status Admin Acetaminophen 1,000 MG Q8P PRN 11/27 1315 AC 11/27 PO 1442 Albuterol Sulfate 2 PUF Q4 11/20 2200 AC 11/30 INH 0620 Albuterol Sulfate 3 ML Q4-6 PRN PRN 11/20 1845 AC 11/29 INH 1058 Amlodipine Besylate 5 MG BID 11/28 2100 AC 11/30 PO 0835 Aspirin Buffered 81 MG DAILY 11/20 1844 AC 11/30 PO 0835 Bisacodyl 5 MG DAILY 11/28 0945 AC 11/29 PO 0859 Budesonide/ 2 PUF BID 11/20 2100 AC 11/30 Formoterol Fumarate INH 0842 Calcium Carbonate 1,250 MG TID 11/23 1400 AC 11/30 PO 0835 Carvedilol 25 MG BID 11/20 2100 AC 11/30 PO 0835 Docusate Sodium 100 MG DAILY NEEDED PRN 11/28 0945 PO Epoetin Elia 15,000 U QTUES 11/27 1034 AC 11/27 SC 1248 Fenofibrate 48 MG DAILY 11/21 0900 AC 11/30 PO 0835 Ferrous Sulfate 325 MG BID 11/20 2100 AC 11/30 PO 0835 Furosemide 80 MG TID 11/29 1400 AC 11/30 IV 0834 Heparin Sodium 5,000 UNIT Q8 11/20 2200 AC 11/30 (Porcine) SC 0541 Hydralazine HCl 100 MG TID 11/20 2100 AC 11/30 PO 0835 Hydroxyzine HCl 10 MG BID 11/25 2100 AC 11/30 PO 0835 Insulin Aspart 0 TIDAC 11/21 0800 AC 11/30 SC 1156 Insulin Detemir 24 UNITS AT BEDTIME 11/20 2100 AC 11/29 SC 2144 Nicotine 14 MG DAILY 11/21 1118 AC 11/30 TOP 0759 Omeprazole 40 MG DAILY AC 11/21 07 AC 11/30 PO 0541 Oxycodone HCl 7.5 MG Q6 PRN 11/28 0700 AC 11/30 PO 0541 Pravastatin Sodium 40 MG 1700 11/21 1700 AC 11/29 PO 1805 Pregabalin 50 MG TID 11/20 2100 AC 11/30 PO 0835 Senna 187 MG AT BEDTIME 11/22 2300 AC 11/29 PO 2136 Sevelamer Carbonate 800 MG WM 11/23 1700 AC 11/30 PO 1156 Sodium Chloride 2 SPRAY Q4P PRN 11/26 0815 AC 11/27 BECKA 0644 Trazodone HCl 50 MG AT BEDTIME 11/25 2100 AC 11/29 PO 2135 Results Pertinent Lab Results: Laboratory Tests 11/30 11/29 11/28 0610 0602 0606 Chemistry Sodium (137 - 145 mmol/L) 141 140 140 Potassium (3.5 - 5.1 mmol/L) 4.8 4.9 4.6 Chloride (98 - 107 mmol/L) 101 101 102 Carbon Dioxide (22 - 30 mmol/L) 33 H 34 H 33 H Anion Gap (5 - 16) 7 6 5 BUN (7 - 17 mg/dL) 63 H 59 H 60 H Creatinine (0.5 - 1.0 mg/dL) 2.6 H 2.6 H 2.6 H Estimated GFR (>60 ml/min) 19 L 19 L 19 L BUN/Creatinine Ratio (7 - 25 %) 24.2 22.7 23.1 Imaging/Other Studies: CXR: IMPRESSION: Cardiomegaly, vascular congestion and CHF. Patchy airspace opacities bilateral lungs may represent alveolar edema or superimposed pneumonia. Follow-up chest x-ray after treatment recommended.
[2017-11-30] MEDS ORDERED: LASIX40 M1 PO (13:08)
[2017-11-30 14:26] VITALS: BP 150/70
[2017-11-30 22:00] VITALS: BP 162/84
[2017-12-01 06:45] VITALS: BP 148/68
[2017-12-01 08:29] LABS: ABSOLUTE BASOPHIL COUNT 0 /CUMM (0.0-0.2); ABSOLUTE EOSINOPHIL COUNT 0.2 /CUMM (0.0-0.7); ABSOLUTE GRANULOCYTE CT 4.7 /CUMM (1.4-6.5); ABSOLUTE LYMPH COUNT 0.9 /CUMM (1.2-3.4); ABSOLUTE MONOCYTE COUNT 0.8 /CUMM (0.10-0.60); BASOPHIL % 0.4 % (0.0-2.0); EOSINOPHIL % 3.7 % (0-5); GRANULOCYTE % 70.7 % (42.2-75.2); HEMATOCRIT 30.9 % (37-47); MEAN CORPUSCULAR HGB 30.6 PG (27.0-31.0); MEAN CORPUSCULAR HGB CONC 31.9 G/DL (33.0-37.0); MEAN CORPUSCULAR VOLUME 95.8 FL (81.0-99.0); MEAN PLATELET VOLUME 8.6 FL (7.4-10.4); PLATELET COUNT 325 /CUMM (130-400); RBC DISTRIBUTION WIDTH 14.2 % (11.5-14.5); RED BLOOD CELL CT 3.23 /CUMM (4.20-5.40); WHITE BLOOD CELL COUNT 6.7 /CUMM (4.8-10.8)
--- NOTE | 2017-12-01 08:31 | PN- Housestaff ---
Diane WILLIAMSON,Emelina 12/01/17 0831: Subjective Follow-up For: Acute decomp sedated heart failure, cardiorenal syndrome Tele-Events Since Last Visit: No overnight events Subjective: Patient was seen and examined at bedside, she complains that her legs are getting more swollen. She has fluid balance of -125 Review of Systems Constitutional: Reports: see HPI. Objective Last 24 Hrs of Vital Signs/I&O Vital Signs Date Time Temp Pulse Resp B/P B/P Pulse O2 O2 Flow FiO2 Mean Ox Delivery Rate 12/01 0818 66 148/68 12/01 0818 66 148/68 12/01 0817 66 148/68 12/01 0800 Nasal 2.0L Cannula 12/01 0645 97.9 66 20 148/68 96 Room Air 12/01 0000 93 Room Air 11/30 2246 88 162/64 11/30 2241 88 162/64 11/30 2215 82 162/64 11/30 2211 95 Room Air Room Air 11/30 2200 98.4 82 22 162/84 94 Room Air 11/30 1600 Room Air Room Air 11/30 1426 98.1 75 20 150/70 95 Nasal Cannula 11/30 1337 74 148/62 Intake & Output 12/01 1600 12/01 0800 / 0000 Intake Total 200 200 Output Total 325 850 Balance -125 -650 Intake, Oral 200 200 Output, Urine 325 850 Physical Exam General Appearance: Alert, Oriented X3, Cooperative HEENT: Atraumatic, PERRLA, EOMI Neck: Supple, No JVD Cardiovascular: Normal S1, Normal S2, No Murmurs Lungs: Normal Air Movement Abdomen: Normal Bowel Sounds, Soft Extremities: 2 + pitting edema of both LE Assessment/Plan Assessment: Ms. 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 Problem list: 1. Acute decompensated heart failure 2. Cardiorenal syndrome 3. Hypertensive urgency 4. False-positive HCV antibody #Acute decompensated heart failure: Patient presented with signs and symptoms of heart failure. She was initially diuresed and then developed worsening acute kidney injury. Diuresis was held but then resumed. Breathing has since improved. TTE revealed EF greater than 65% with right ventricular systolic pressure 4550 mmHg. She has had a fluid balance -1.5 L in the past 24 hours. Patient said yesterday that she very much wanted to leave today but now seems willing to stay for further diuresis. We will discuss with nephrology. -Continue diuresis, will discuss with nephrology if we need to increase the dose of Lasix (however this might be a challenge since the patient has AK I on CKD and if kidney function today showed slight decrease of creatinine 2.8 it was 2.6 yesterday) -Appreciate cardiology recommendations -Daily weights, I's and O's -Taper oxygen therapy #Cardiorenal syndrome: Patient's baseline creatinine around 2.0. When she presented, creatinine was normal with an increased. It is now started to decrease, 3.7 to 2.6. Renal ultrasound was normal. This is probably an acute kidney injury in the setting of low output heart failure. -Continue diuresis as above -Avoid nephrotoxins -Appreciate nephrology recommendations #Hypertension: Patient has hypertension mostly at night that is difficult to control. -Continue amlodipine 5 mg twice daily -Continue hydralazine, carvedilol -Avoiding ADRI inhibitors per nephrology #False positive hepatitis C antibody: Patient was noted to have positive hepatitis C antibody but negative HCV RNA. This likely means she cleared the virus or it is a false positive. No treatment is necessary at this time. #Chronic medical problems: -Continue other home medications DVT prophylaxis with heparin Consistent carbohydrate 1 diet Full code Problem List: 1. 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 Started on IV Lasix on admission. Patient is doing much better today. Her breathing has improved. Renal function continues to improve. Hyperkalemia resolved. 1. Acute on chronic diastolic CHF 2. Cardiorenal syndrome 3. Hyperkalemia 4. ADDY Plan - Continue on telemetry - Continue IV Lasix - I/O, daily weights - Nephrology and Cardiology consult - Ambulatory saturation - Continue home meds - DVT PPx
[2017-12-01 13:59] VITALS: BP 150/66
[2017-12-01 21:58] VITALS: BP 148/58
[2017-12-02 07:13] VITALS: BP 130/76
[2017-12-02 07:59] LABS: ABSOLUTE BASOPHIL COUNT 0.1 /CUMM (0.0-0.2); ABSOLUTE EOSINOPHIL COUNT 0.2 /CUMM (0.0-0.7); ABSOLUTE GRANULOCYTE CT 4.5 /CUMM (1.4-6.5); ABSOLUTE LYMPH COUNT 0.9 /CUMM (1.2-3.4); ABSOLUTE MONOCYTE COUNT 0.6 /CUMM (0.10-0.60); EOSINOPHIL % 3.3 % (0-5); GRANULOCYTE % 71.1 % (42.2-75.2); HEMATOCRIT 29.6 % (37-47); MEAN CORPUSCULAR HGB 30.8 PG (27.0-31.0); MEAN CORPUSCULAR HGB CONC 32.3 G/DL (33.0-37.0); MEAN CORPUSCULAR VOLUME 95.3 FL (81.0-99.0); MEAN PLATELET VOLUME 8.3 FL (7.4-10.4); PLATELET COUNT 294 /CUMM (130-400); RBC DISTRIBUTION WIDTH 14.1 % (11.5-14.5); RED BLOOD CELL CT 3.11 /CUMM (4.20-5.40); WHITE BLOOD CELL COUNT 6.4 /CUMM (4.8-10.8)
--- NOTE | 2017-12-02 08:12 | PN- Housestaff ---
See Addendum Subjective Follow-up For: Acute decompensated heart failure, cardiorenal syndrome Tele-Events Since Last Visit: Not on telemetry Subjective: No overnight events. Patient is complaining that her kidneys are damaged. She thinks it is because of the Lasix that she is receiving now. She also says that she does not want to leave until her legs are normal because she does not want to have to come back. She has no shortness of breath or other issues. Review of Systems Constitutional: Reports: no symptoms. EENTM: Reports: no symptoms. Cardiovascular: Reports: see HPI. Respiratory: Reports: no symptoms. Gastrointestinal: Reports: no symptoms. Genitourinary: Reports: no symptoms. Musculoskeletal: Reports: no symptoms. Skin: Reports: no symptoms. Neurological/Psychological: Reports: no symptoms. Hematologic/Endocrine: Reports: no symptoms. Immunologic/Allergic: Reports: no symptoms. Objective Last 24 Hrs of Vital Signs/I&O Vital Signs Date Time Temp Pulse Resp B/P B/P Pulse O2 O2 Flow FiO2 Mean Ox Delivery Rate 12/02 0713 98.3 118 16 130/76 93 12/02 0000 95 Nasal 2.0L Cannula 12/01 2158 99.1 71 18 148/58 92 Room Air 12/01 2138 148/62 12/01 2138 68 142/80 12/01 1443 97 Nasal 2.0L Cannula 12/01 1359 98.5 71 20 150/66 94 Nasal 2.0L Cannula 12/01 0818 66 148/68 12/01 0818 66 148/68 12/01 0817 66 148/68 Intake & Output 12/02 1600 12/02 0800 12/02 0000 Intake Total 120 440 Output Total 625 650 Balance -505 -210 Intake, Oral 120 440 Output, Urine 625 650 Patient 92.788 kg Weight Weight Bed scale Measurement Method Physical Exam General Appearance: Alert, Oriented X3, Cooperative, No Acute Distress Cardiovascular: Regular Rate, Normal S1, Normal S2 Lungs: Clear to Auscultation Extremities: 1+ pitting edema Current Medications: Current Medications Sig/Jannet Start time Last Medication Dose Route Stop Time Status Admin Acetaminophen 1,000 MG Q8P PRN 11/27 1315 AC 11/27 PO 1442 Albuterol Sulfate 2 PUF Q4 11/20 2200 AC 12/02 INH 0641 Albuterol Sulfate 3 ML Q4-6 PRN PRN 11/20 1845 AC 11/29 INH 1058 Amlodipine Besylate 5 MG BID 11/28 2100 AC 12/01 PO 2138 Aspirin Buffered 81 MG DAILY 11/20 1844 AC 12/01 PO 0817 Bisacodyl 5 MG DAILY 11/28 0945 AC 11/29 PO 0859 Budesonide/ 2 PUF BID 11/20 2100 AC 12/01 Formoterol Fumarate INH 2140 Calcium Carbonate 1,250 MG TID 11/23 1400 AC 12/01 PO 2138 Carvedilol 25 MG BID 11/20 2100 AC 12/01 PO 2138 Docusate Sodium 100 MG DAILY NEEDED PRN 11/28 0945 AC PO Epoetin Elia 15,000 U QTUES 11/27 1034 AC 11/27 SC 1248 Fenofibrate 48 MG DAILY 11/21 0900 AC 12/01 PO 0817 Ferrous Sulfate 325 MG BID 11/20 2100 AC 12/01 PO 2138 Furosemide 80 MG BID 12/01 2100 AC 12/01 IV 2143 Furosemide 80 MG TID 11/29 1400 DC 12/01 IV 0819 Heparin Sodium 5,000 UNIT Q8 11/20 2200 AC 12/02 (Porcine) SC 0640 Hydralazine HCl 100 MG TID 11/20 2100 AC 12/01 PO 2139 Hydroxyzine HCl 10 MG BID 11/25 2100 AC 12/01 PO 2138 Insulin Aspart 0 TIDAC 11/21 0800 AC 12/01 SC 1705 Insulin Detemir 24 UNITS AT BEDTIME 11/20 2100 AC 12/01 SC 2139 Melatonin 5 MG AT BEDTIME 11/30 2100 AC 12/01 PO 2138 Nicotine 14 MG DAILY 11/21 1118 AC 12/01 TOP 0818 Omeprazole 40 MG DAILY AC 11/21 07 AC 12/02 PO 0702 Oxycodone HCl 7.5 MG Q6 PRN 11/28 0700 AC 12/01 PO 2059 Pravastatin Sodium 40 MG 1700 11/21 1700 AC 12/01 PO 1705 Pregabalin 50 MG TID 11/20 2100 AC 12/01 PO 2139 Senna 187 MG AT BEDTIME 11/22 2300 AC 11/29 PO 2136 Sevelamer Carbonate 800 MG WM 11/23 1700 AC 12/01 PO 1705 Sodium Chloride 2 SPRAY Q4P PRN 11/26 0815 AC 11/27 BECKA 0644 Trazodone HCl 50 MG AT BEDTIME 11/25 2100 AC 12/01 PO 2139 Last 24 Hrs of Lab/Olu Results Last 24 Hrs of Labs/Mics: Laboratory Tests 12/02/17 0640: Anion Gap 7, Estimated GFR 19 L, BUN/Creatinine Ratio 26.9 H, CBC w Diff Pending, WBC Pending, RBC Pending, Hgb Pending, Hct Pending, MCV Pending, MCH Pending, MCHC Pending, RDW Pending, Plt Count Pending, MPV Pending Assessment/Plan Assessment: Ms. 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 Problem list: 1. Acute decompensated heart failure 2. Cardiorenal syndrome 3. Hypertensive urgency 4. False-positive HCV antibody #Acute decompensated heart failure: Patient presented with signs and symptoms of heart failure. She was initially diuresed and then developed worsening acute kidney injury. Diuresis was held but then resumed. Breathing has since improved. TTE revealed EF greater than 65% with right ventricular systolic pressure 4550 mmHg. She has had a fluid balance -0.6 L in the past 24 hours. Patient seems to want to stay for further diuresis. Potassium is slightly elevated today. -Continue diuresis -Appreciate cardiology recommendations -Daily weights, I's and O's -Taper oxygen therapy #Cardiorenal syndrome: Patient's baseline creatinine around 2.0. When she presented, creatinine was normal with an increased. The creatinine has now plateaued at 2.6. This is likely her baseline given that she has history of chronic kidney disease. Renal ultrasound was normal. -Continue diuresis as above -Avoid nephrotoxins -Appreciate nephrology recommendations #Hypertension: Patient has hypertension mostly at night that is difficult to control. -Continue amlodipine 5 mg twice daily -Continue hydralazine, carvedilol -Avoiding ADRI inhibitors per nephrology #False positive hepatitis C antibody: Patient was noted to have positive hepatitis C antibody but negative HCV RNA. This likely means she cleared the virus or it is a false positive. No treatment is necessary at this time. #Chronic medical problems: -Continue other home medications DVT prophylaxis with heparin Consistent carbohydrate 1 diet Full code Problem List: 1. CHF (congestive heart failure) Pain Ratin Pain Location: no Pain Goal: Remain pain free Pain Plan: see a/p Tomorrow's Labs & Rationales: bep
[2017-12-02 15:10] VITALS: BP 124/58
[2017-12-02 22:29] VITALS: BP 142/64
[2017-12-03 07:01] VITALS: BP 120/64
--- NOTE | 2017-12-03 07:10 | PN- Housestaff ---
See Addendum Subjective Follow-up For: Acute decompensated heart failure, cardiorenal syndrome Tele-Events Since Last Visit: Not on telemetry Subjective: No overnight events. Patient has no shortness of breath or chest pain. She says that the nurses keep putting the oxygen back on her even though she does not think she needs it. She also says she does not want to go to rehab and would her to go home. No other complaints. Review of Systems Constitutional: Reports: no symptoms. EENTM: Reports: no symptoms. Cardiovascular: Reports: no symptoms. Respiratory: Reports: no symptoms. Gastrointestinal: Reports: no symptoms. Genitourinary: Reports: no symptoms. Musculoskeletal: Reports: no symptoms. Skin: Reports: no symptoms. Neurological/Psychological: Reports: no symptoms. Hematologic/Endocrine: Reports: no symptoms. Immunologic/Allergic: Reports: no symptoms. Objective Last 24 Hrs of Vital Signs/I&O Vital Signs Date Time Temp Pulse Resp B/P B/P Pulse O2 O2 Flow FiO2 Mean Ox Delivery Rate 12/03 0701 98.1 70 18 120/64 96 Nasal Cannula 12/02 2229 99.8 70 18 142/64 95 Nasal Cannula 12/02 2159 70 124/58 12/02 2159 70 124/58 12/02 2158 70 124/58 12/02 2132 Nasal 2.0L Cannula 12/02 1510 97.2 71 18 124/58 92 Nasal 1.5L Cannula 12/02 1312 88 138/58 12/02 0916 118 130/76 12/02 0916 118 130/76 12/02 0915 118 130/76 12/02 0800 Nasal 2.0L Cannula 12/02 0713 98.3 118 16 130/76 93 Intake & Output 12/03 0800 12/03 0000 12/02 1600 Intake Total 150 200 610 Output Total 400 650 500 Balance -250 -450 110 Intake, IV 10 Intake, Oral 150 200 600 Output, Urine 400 650 500 Patient 93.695 kg Weight Weight Bed scale Measurement Method Physical Exam General Appearance: Alert, Oriented X3, Cooperative, No Acute Distress Cardiovascular: Regular Rate, Normal S1, Normal S2 Lungs: Clear to Auscultation Extremities: 2+ pitting edema Assessment/Plan Assessment: Ms. 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 Problem list: 1. Acute decompensated heart failure 2. Cardiorenal syndrome 3. Hypertensive urgency 4. False-positive HCV antibody #Acute decompensated heart failure: Patient presented with signs and symptoms of heart failure. She was initially diuresed and then developed worsening acute kidney injury. Diuresis was held but then resumed. Breathing has since improved. TTE revealed EF greater than 65% with right ventricular systolic pressure 4550 mmHg. She has had a fluid balance -0.8 L in the past 24 hours. Potassium is slightly elevated today. -Continue diuresis -Appreciate cardiology recommendations -Daily weights, I's and O's -Taper oxygen therapy #Cardiorenal syndrome: Patient's baseline creatinine around 2.0. When she presented, creatinine was normal with an increased. The creatinine initially improved but today it is up to 3.0. We will talk to nephrology, trying to balance diuresis versus injuring the kidney. -Continue diuresis as above -Avoid nephrotoxins -Appreciate nephrology recommendations #Hypertension: Patient has hypertension mostly at night that is difficult to control. -Continue amlodipine 5 mg twice daily -Continue hydralazine, carvedilol -Avoiding ADRI inhibitors per nephrology #False positive hepatitis C antibody: Patient was noted to have positive hepatitis C antibody but negative HCV RNA. This likely means she cleared the virus or it is a false positive. No treatment is necessary at this time. #Chronic medical problems: -Continue other home medications DVT prophylaxis with heparin Consistent carbohydrate 1 diet Full code Problem List: 1. CHF (congestive heart failure) Pain Ratin Pain Location: no Pain Goal: Remain pain free Pain Plan: see a/p Tomorrow's Labs & Rationales: bep
--- NOTE | 2017-12-03 11:18 | PN- Nephrology ---
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 ADDY - Likely 2/2 cardiorenal factors (HFpEF) - unfortunately with fluctuating SCr with attempts at diuresis. Weight is still up and she has evidence of volume expansion on exam. I think that we should continue with the current diuresis for another day. If her SCr is up tomorrow, we should check a repeat chest x-ray. Anemia - On weekly Epogen. Suggestion: -Cont lasix 80mg IV BID; 1L/day fluid restriction -Standing weights only -Chest x-ray tomorrow if SCr is up -Cont weekly Epogen Please call [phone] with ?'s Subjective Subjective: SCr 2.6->3.0 1775cc UOP in the last day - 80mg IV lasix BID Weight up to 207 hemodynamically stable; no nephrotoxic meds Hard to say if she's SOB but says "they just put the oxygen on me"; says edema is legs is "terrible" Objective Vital Signs and I&Os Vital Signs Date Time Temp Pulse Resp B/P B/P Pulse O2 O2 Flow FiO2 Mean Ox Delivery Rate 12/03 1025 91 Nasal 1.0L Cannula 12/03 1000 88 Room Air 12/03 0816 96 Nasal 2.0L Cannula 12/03 0701 98.1 70 18 120/64 96 Nasal Cannula 12/02 2229 99.8 70 18 142/64 95 Nasal Cannula 12/02 2159 70 124/58 12/02 2159 70 124/58 12/02 2158 70 124/58 12/02 2132 Nasal 2.0L Cannula 12/02 1510 97.2 71 18 124/58 92 Nasal 1.5L Cannula 12/02 1312 88 138/58 Intake & Output 12/03 1600 12/03 0400 12/02 1600 12/02 0400 12/01 1600 12/01 0400 Intake Total 150 200 730 440 725 200 Output Total 257 769 7961 650 1125 850 Balance -250 -450 -395 -210 -400 -650 Intake, IV 10 Intake, Oral 150 200 720 440 725 200 Number 1 Bowel Movements Output, Urine 809 127 2893 650 1125 850 Patient 207 lb 205 lb Weight Weight Bed scale Bed scale Measurement Method Physical Exam: Gen - NAD HEENT - JVP not clearly up CV - RRR, no w/r/r Chest - scant R basilar crackles, no wheezes/rhonchi Abd - soft, NTND Ext - ++edema Neuro - AOX3, grossly nonfocal Current Medications: Current Medications Sig/Jannet Start time Last Medication Dose Route Stop Time Status Admin Acetaminophen 1,000 MG Q8P PRN 11/27 1315 AC 11/27 PO 1442 Albuterol Sulfate 2 PUF Q4 11/20 2200 AC 12/03 INH 0651 Albuterol Sulfate 3 ML Q4-6 PRN PRN 11/20 1845 DC 11/29 INH 1058 Amlodipine Besylate 5 MG BID 11/28 2100 AC 12/03 PO 0822 Aspirin Buffered 81 MG DAILY 11/20 1844 AC 12/03 PO 0822 Bisacodyl 5 MG DAILY 11/28 0945 AC 12/03 PO 0823 Budesonide/ 2 PUF BID 11/20 2100 AC 12/03 Formoterol Fumarate INH 0825 Calcium Carbonate 1,250 MG TID 11/23 1400 AC 12/03 PO 0822 Carvedilol 25 MG BID 11/20 2100 AC 12/03 PO 0822 Docusate Sodium 100 MG DAILY NEEDED PRN 11/28 0945 AC PO Epoetin Elia 15,000 U QTUES 11/27 1034 AC 11/27 SC 1248 Fenofibrate 48 MG DAILY 11/21 0900 AC 12/03 PO 0822 Ferrous Sulfate 325 MG BID 11/20 2100 AC 12/03 PO 0822 Furosemide 80 MG BID 12/01 2100 AC 12/03 IV 0824 Heparin Sodium 5,000 UNIT Q8 11/20 2200 AC 12/03 (Porcine) SC 0651 Hydralazine HCl 100 MG TID 11/20 2099 AC 12/03 PO 0823 Hydroxyzine HCl 10 MG BID 11/25 2100 AC 12/03 PO 0823 Insulin Aspart 0 TIDAC 11/21 08 AC 12/03 SC 0823 Insulin Detemir 24 UNITS AT BEDTIME 11/20 2099 AC 12/02 SC 2208 Melatonin 5 MG AT BEDTIME 11/30 2100 AC 12/02 PO 2159 Nicotine 14 MG DAILY 11/21 1118 AC 12/03 TOP 0824 Omeprazole 40 MG DAILY AC 11/21 0700 AC 12/03 PO 0649 Oxycodone HCl 7.5 MG Q6 PRN 11/28 0700 AC 12/03 PO 0349 Pravastatin Sodium 40 MG 1700 11/21 1700 AC 12/02 PO 1658 Pregabalin 50 MG TID 11/20 2099 AC 12/03 PO 0824 Senna 187 MG AT BEDTIME 11/22 2300 AC 12/02 PO 2159 Sevelamer Carbonate 800 MG WM 11/23 1700 AC 12/03 PO 0823 Sodium Chloride 2 SPRAY Q4P PRN 11/26 0815 AC 11/27 BECKA 0644 Trazodone HCl 50 MG AT BEDTIME 11/25 2100 AC 12/02 PO 2159 Results Pertinent Lab Results: Laboratory Tests 12/03 12/02 0637 0640 Chemistry Sodium (137 - 145 mmol/L) 141 139 Potassium (3.5 - 5.1 mmol/L) 5.2 H 5.4 H Chloride (98 - 107 mmol/L) 98 100 Carbon Dioxide (22 - 30 mmol/L) 34 H 32 H Anion Gap (5 - 16) 9 7 BUN (7 - 17 mg/dL) 64 H 70 H Creatinine (0.5 - 1.0 mg/dL) 3.0 H 2.6 H Estimated GFR (>60 ml/min) 16 L 19 L BUN/Creatinine Ratio (7 - 25 %) 21.3 26.9 H Hematology CBC w Diff NO MAN DIFF REQ WBC (4.8 - 10.8 /CUMM) 6.4 RBC (4.20 - 5.40 /CUMM) 3.11 L Hgb (12.0 - 16.0 G/DL) 9.6 L Hct (37 - 47 %) 29.6 L MCV (81.0 - 99.0 FL) 95.3 MCH (27.0 - 31.0 PG) 30.8 MCHC (33.0 - 37.0 G/DL) 32.3 L RDW (11.5 - 14.5 %) 14.1 Plt Count (130 - 400 /CUMM) 294 MPV (7.4 - 10.4 FL) 8.3 Gran % (42.2 - 75.2 %) 71.1 Lymphocytes % (20.5 - 51.1 %) 14.7 L Monocytes % (1.7 - 9.3 %) 9.9 H Eosinophils % (0 - 5 %) 3.3 Basophils % (0.0 - 2.0 %) 1.0 Absolute Granulocytes (1.4 - 6.5 /CUMM) 4.5 Absolute Lymphocytes (1.2 - 3.4 /CUMM) 0.9 L Absolute Monocytes (0.10 - 0.60 /CUMM) 0.6 Absolute Eosinophils (0.0 - 0.7 /CUMM) 0.2 Absolute Basophils (0.0 - 0.2 /CUMM) 0.1 06/09 0600 Chemistry Sodium (137 - 145 mmol/L) 141 Potassium (3.5 - 5.1 mmol/L) 5.1 Chloride (98 - 107 mmol/L) 100 Carbon Dioxide (22 - 30 mmol/L) 34 H Anion Gap (5 - 16) 7 BUN (7 - 17 mg/dL) 67 H Creatinine (0.5 - 1.0 mg/dL) 2.8 H Estimated GFR (>60 ml/min) 17 L BUN/Creatinine Ratio (7 - 25 %) 23.9 Hematology CBC w Diff NO MAN DIFF REQ WBC (4.8 - 10.8 /CUMM) 6.7 RBC (4.20 - 5.40 /CUMM) 3.23 L Hgb (12.0 - 16.0 G/DL) 9.9 L Hct (37 - 47 %) 30.9 L MCV (81.0 - 99.0 FL) 95.8 MCH (27.0 - 31.0 PG) 30.6 MCHC (33.0 - 37.0 G/DL) 31.9 L RDW (11.5 - 14.5 %) 14.2 Plt Count (130 - 400 /CUMM) 325 MPV (7.4 - 10.4 FL) 8.6 Gran % (42.2 - 75.2 %) 70.7 Lymphocytes % (20.5 - 51.1 %) 13.0 L Monocytes % (1.7 - 9.3 %) 12.2 H Eosinophils % (0 - 5 %) 3.7 Basophils % (0.0 - 2.0 %) 0.4 Absolute Granulocytes (1.4 - 6.5 /CUMM) 4.7 Absolute Lymphocytes (1.2 - 3.4 /CUMM) 0.9 L Absolute Monocytes (0.10 - 0.60 /CUMM) 0.8 H Absolute Eosinophils (0.0 - 0.7 /CUMM) 0.2 Absolute Basophils (0.0 - 0.2 /CUMM) 0 Imaging/Other Studies: TTE 11/21 CONCLUSIONS Moderate concentric left ventricular hypertrophy. Normal left ventricular ejection fraction visually estimated at >65 Normal left ventricular diastolic filling pattern for age. Left atrial size at the upper limits of normal. Mild thickening/calcification of the mitral valve leaflets. Moderate mitral annular calcification. Mild mitral regurgitation. Focal thickening of the aortic valve cusps. No aortic stenosis. Right ventricular systolic pressure estimated to be elevated at 45- 50 mmHg. The aortic arch and great vessels are not well seen. Renal US EXAM TYPE: US - US-RENAL/KIDNEY EXAMINATION: US RETROPERITONEAL COMPLETE (RENAL) CLINICAL INFORMATION: Acute kidney insufficiency. Presumptive diagnosis of hydronephrosis. COMPARISON: Renal ultrasound dated 03/18/2017. TECHNIQUE: Real-time imaging of the kidneys and bladder. FINDINGS: Evaluation is significantly limited due to patient's body habitus. RIGHT KIDNEY: 10.9 x 4.8 x 5.6 cm (SAG x AP x TRV) versus 12.4 x 5.4 x 4.7 cm (03/18/2017). This apparent change in size is likely due to technical factors rather than a true change in size of the kidney. The kidney is normal in size, contour, and echogenicity. Renal cortical thickness is normal. No calculi or focal parenchymal lesions. No hydronephrosis. LEFT KIDNEY: 12.7 x 6.0 x 5.7 cm (SAG x AP x TRV) versus 13.2 x 6.4 x 5.3 cm (03/18/2017). The kidney is normal in size, contour, and echogenicity. Renal cortical thickness is normal. No calculi or focal parenchymal lesions. No hydronephrosis. BLADDER: Well-distended and normal. Bilateral ureteral jets are not demonstrated. Prevoid bladder volume is 289 mL. Postvoid bladder volume could not be obtained since the patient did not wish to void at the time of the exam. IMPRESSION: Limited exam. No hydronephrosis or other focal abnormality seen.
--- NOTE | 2017-12-03 12:36 | PN- Cardiology ---
Subjective Subjective: The patient feels "swollen". She is on 1 North but off telemetry. She has no chest pain or excessive shortness of breath. She is on 1 L of oxygen for saturation of 88% earlier. She is still on IV Lasix. Her BUN and creatinine have been fluctuating but are probably around her baseline at this time. Blood pressure has been good. Her weight is up over the past couple of days a couple of pounds. Objective Vital Signs and I&Os Vital Signs Date Time Temp Pulse Resp B/P B/P Pulse O2 O2 Flow FiO2 Mean Ox Delivery Rate 12/03 1025 91 Nasal 1.0L Cannula 12/03 1000 88 Room Air 12/03 0816 96 Nasal 2.0L Cannula 12/03 0701 98.1 70 18 120/64 96 Nasal Cannula 12/02 2229 99.8 70 18 142/64 95 Nasal Cannula 12/02 2159 70 124/58 12/02 2159 70 124/58 12/02 2158 70 124/58 12/02 2132 Nasal 2.0L Cannula 12/02 1510 97.2 71 18 124/58 92 Nasal 1.5L Cannula 12/02 1312 88 138/58 Intake & Output 12/03 1600 12/03 0800 12/03 0000 12/02 1600 12/02 0800 12/02 0000 Intake Total 150 200 610 120 440 Output Total 400 650 500 625 650 Balance -250 -450 110 -505 -210 Intake, IV 10 Intake, Oral 150 200 600 120 440 Output, Urine 400 650 500 625 650 Patient 207 lb 205 lb Weight Weight Bed scale Bed scale Measurement Method Physical Exam: She is in no distress Chest is clear Heart regular rhythm, no murmurs Extremities 2+ edema to just above the knees a little bit more prominent on the left. Current Medications: Current Medications Sig/Jannet Start time Last Medication Dose Route Stop Time Status Admin Acetaminophen 1,000 MG Q8P PRN 11/27 1315 AC 11/27 PO 1442 Albuterol Sulfate 2 PUF Q4 11/20 2200 AC 12/03 INH 0651 Albuterol Sulfate 3 ML Q4-6 PRN PRN 11/20 1845 DC 11/29 INH 1058 Amlodipine Besylate 5 MG BID 11/28 2100 AC 12/03 PO 0822 Aspirin Buffered 81 MG DAILY 11/20 1844 AC 12/03 PO 0822 Bisacodyl 5 MG DAILY 11/28 0945 AC 12/03 PO 0823 Budesonide/ 2 PUF BID 11/20 2100 AC 12/03 Formoterol Fumarate INH 0825 Calcium Carbonate 1,250 MG TID 11/23 1400 AC 12/03 PO 0822 Carvedilol 25 MG BID 11/20 2100 AC 12/03 PO 0822 Docusate Sodium 100 MG DAILY NEEDED PRN 11/28 0945 AC PO Epoetin Elia 15,000 U QTUES 11/27 1034 AC 11/27 SC 1248 Fenofibrate 48 MG DAILY 11/21 0900 AC 12/03 PO 0822 Ferrous Sulfate 325 MG BID 11/20 2100 AC 12/03 PO 0822 Furosemide 80 MG BID 12/01 2100 AC 12/03 IV 0824 Heparin Sodium 5,000 UNIT Q8 11/20 2200 AC 12/03 (Porcine) SC 0651 Hydralazine HCl 100 MG TID 11/20 2100 AC 12/03 PO 0823 Hydroxyzine HCl 10 MG BID 11/25 2100 AC 12/03 PO 0823 Insulin Aspart 0 TIDAC 11/21 08 AC 12/03 SC 1222 Insulin Detemir 24 UNITS AT BEDTIME 11/20 2100 AC 12/02 SC 2208 Melatonin 5 MG AT BEDTIME 11/30 2100 AC 12/02 PO 2159 Nicotine 14 MG DAILY 11/21 1118 AC 12/03 TOP 0824 Omeprazole 40 MG DAILY AC 11/21 0700 AC 12/03 PO 0649 Oxycodone HCl 7.5 MG Q6 PRN 11/28 0700 AC 12/03 PO 0349 Pravastatin Sodium 40 MG 1700 11/21 1700 AC 12/02 PO 1658 Pregabalin 50 MG TID 11/20 2100 AC 12/03 PO 0824 Senna 187 MG AT BEDTIME 11/22 2300 AC 12/02 PO 2159 Sevelamer Carbonate 800 MG WM 11/23 1700 AC 12/03 PO 1222 Sodium Chloride 2 SPRAY Q4P PRN 11/26 0815 AC 11/27 BECKA 0644 Trazodone HCl 50 MG AT BEDTIME 11/25 2100 AC 12/02 PO 2159 Results Last 48 Hrs of Labs/Mics: Laboratory Tests 12/03/17 0637: Anion Gap 9, Estimated GFR 16 L, BUN/Creatinine Ratio 21.3 12/02/17 0640: Anion Gap 7, Estimated GFR 19 L, BUN/Creatinine Ratio 26.9 H, CBC w Diff NO MAN DIFF REQ, RBC 3.11 L, MCV 95.3, MCH 30.8, MCHC 32.3 L, RDW 14.1, MPV 8.3, Gran % 71.1, Lymphocytes % 14.7 L, Monocytes % 9.9 H, Eosinophils % 3.3, Basophils % 1.0, Absolute Granulocytes 4.5, Absolute Lymphocytes 0.9 L, Absolute Monocytes 0.6, Absolute Eosinophils 0.2, Absolute Basophils 0.1 Assessment/Plan Assessment/Plan The patient is still gaining weight and fluid. This is despite being on 80 mg twice daily of IV Lasix. Her I's and O's are consistently negative. She is now on a fluid restriction. I recommend continuing IV Lasix. We could consider increasing the dose or adding metolazone. I recommend a follow-up chest x-ray. I recommend venous ultrasound of the legs just to reassure that there is no other cause for her edema. Continue telemetry? Not applicable
[2017-12-03 14:25] VITALS: BP 138/80
[2017-12-03 14:34] VITALS: BP 132/66
--- NOTE | 2017-12-03 15:29 | RADIOLOGY REPORT ---
EXAMINATION: XR CHEST CLINICAL INFORMATION: Fluid overload. Clinical suspicion of congestive heart failure COMPARISON: 11/26/17 TECHNIQUE: 2 views of the chest were obtained. FINDINGS: Lordotic projection. Prominent globular cardiac silhouette. No large hilar mass. The central vessels are somewhat cephalized. There is no alveolar edema. Habitus limits exam. There is no dense consolidation or large area of atelectasis. There is some fissural fluid. No significant pleural fluid. No pneumothorax. Limited bone detail IMPRESSION: Limited study. Prominent cardiac silhouette. Prominent central vessels with mild amount of fissural fluid. No acute pneumonia or alveolar edema In comparison with 11/26/17 lungs are somewhat improved
--- NOTE | 2017-12-03 15:49 | ULTRASOUND REPORT ---
EXAMINATION: US TRIPLEX OF LOWER EXTREMITIES, BILATERAL CLINICAL INFORMATION: Edema COMPARISON: None TECHNIQUE: Color-flow triplex imaging with spectral analysis and compression Doppler were performed on the lower extremities. FINDINGS: Respiratory variation, normal compression and augmented flow are noted throughout the lower extremities. The visualized common femoral vein, superficial femoral vein, profunda femoral vein, popliteal vein and midcalf peroneal and posterior tibial venous segments show no evidence of deep venous thrombosis. There is no Galindo's cyst. Subcutaneous edema noted in bilateral calves. IMPRESSION: No sonographic evidence of deep venous thrombosis involving the bilateral lower extremities.
[2017-12-03 20:42] VITALS: BP 150/60
[2017-12-04 05:46] VITALS: BP 142/64
--- NOTE | 2017-12-04 06:53 | Transfer of Care Summary ---
Hospital Course Course Hospital Course: Ms. 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 Problem list: 1. Acute decompensated heart failure 2. Cardiorenal syndrome 3. Hypertensive urgency 4. False-positive HCV antibody #Acute decompensated heart failure: Patient presented with signs and symptoms of heart failure. She was initially diuresed and then developed worsening acute kidney injury. Diuresis was held for ADDY but then resumed after consulting nephrology. Breathing had improved with continuation of aggressive diuresis. TTE revealed EF greater than 65% with right ventricular systolic pressure 4550 mmHg. The patient was initially placed on telemetry monitoring because of the acute decompensated heart failure. However the patient complained about the monitor and cardiology approved discontinuing it. She was diuresing well until she had a [employer] meal on Sunday. The following day, she had gained weight with increased edema. Follow-up the repeat chest x-ray and consult with cardiology and nephrology regarding further aggressive diuresis. Please note the patient was very upset and believes that her kidney disease was caused by the furosemide that we are giving her here. She has had chronic kidney disease since at least 2017 per the records. She has poor insight into her medical condition. We also placed a nutrition consult given her poor dietary choices. #Cardiorenal syndrome: Patient's baseline creatinine around 2.0. When she presented, creatinine was normal with an increased. The creatinine initially improved with diuresis but is now uptrending. Consult nephrology regarding diuresis. It seems like this is most likely cardiorenal still. #Hypertension: Patient has hypertension mostly at night that is difficult to control. We started her on amlodipine twice daily to control her nocturnal hypertension. We are also avoiding ADRI inhibitors per nephrology. #False positive hepatitis C antibody: Patient was noted to have positive hepatitis C antibody but negative HCV RNA. She has received ledipasvir/ sofosbuvir treatment. #Chronic medical problems: Her other medications are being continued. DVT prophylaxis with heparin Consistent carbohydrate 1 diet Full code Please update daughter Cris with any changes at [phone]. Assessment/Plan: See above.
--- NOTE | 2017-12-04 07:38 | PN- Housestaff ---
Bere Bronson 12/04/17 0738: Subjective Follow-up For: Acute decompensated heart failure cardiorenal syndrome Subjective: Patient reports BLE edema that does not resolve with current diuretic regimen. She's frustrated that she has been in the hospital for 2 weeks with little improvement. She denies SOB, CP, palpitations, nausea, vomiting Review of Systems Constitutional: Reports: see HPI. Objective Last 24 Hrs of Vital Signs/I&O Vital Signs Date Time Temp Pulse Resp B/P B/P Pulse O2 O2 Flow FiO2 Mean Ox Delivery Rate 12/04 0939 66 130/72 12/04 0938 66 130/72 12/04 0938 66 130/72 12/04 0546 98.1 64 21 142/64 93 Nasal 2.0L Cannula 12/04 0000 Nasal 2.0L Cannula 12/03 2208 70 150/60 12/03 2206 70 150/60 12/03 2206 70 150/60 12/03 2042 98.8 70 20 150/60 95 Nasal 2.0L Cannula 12/03 2030 Nasal 2.0L Cannula 12/03 1618 95 Nasal 2.0L Cannula 12/03 1434 98.7 70 18 132/66 96 Nasal Cannula 12/03 1425 98.0 60 16 138/80 95 Room Air Intake & Output 12/04 1600 12/04 0800 12/04 0000 Intake Total 240 100 Output Total 900 Balance -660 100 Intake, Oral 240 100 Output, Urine 900 Patient 206 lb 204 lb Weight Weight Standing Scale Standing Scale Measurement Method Physical Exam General Appearance: Alert, Oriented X3, Cooperative, on 2LNC Cardiovascular: Regular Rate, Normal S1, Normal S2 Lungs: Clear to Auscultation, Normal Air Movement Abdomen: Normal Bowel Sounds, Soft, No Tenderness Extremities: BL 2+ edema up to thighs Current Medications: Current Medications Sig/Jannet Start time Last Medication Dose Route Stop Time Status Admin Acetaminophen 1,000 MG Q8P PRN 11/27 1315 AC 11/27 PO 1442 Albuterol Sulfate 2 PUF Q4 11/20 2200 AC 12/04 INH 0504 Amlodipine Besylate 5 MG BID 11/28 2100 DC 12/04 PO 0939 Aspirin Buffered 81 MG DAILY 11/20 1844 AC 12/04 PO 0938 Bisacodyl 5 MG DAILY 11/28 0945 AC 12/03 PO 0823 Budesonide/ 2 PUF BID 11/20 2100 AC 12/04 Formoterol Fumarate INH 0940 Calcium Carbonate 1,250 MG TID 11/23 1400 AC 12/04 PO 0938 Carvedilol 25 MG BID 11/20 2100 AC 12/04 PO 0938 Docusate Sodium 100 MG DAILY NEEDED PRN 11/28 0945 AC PO Epoetin Elia 15,000 U QTUES 11/27 1034 AC 11/27 SC 1248 Fenofibrate 48 MG DAILY 11/21 0900 AC 12/04 PO 0939 Ferrous Sulfate 325 MG BID 11/20 2100 AC 12/04 PO 0939 Furosemide 80 MG ONE ONE 12/04 1130 CAN PO 12/04 1131 Furosemide 80 MG BID 12/01 2100 AC 12/03 IV 2209 Heparin Sodium 5,000 UNIT Q8 11/20 2200 DC 12/04 (Porcine) SC 0504 Hydralazine HCl 100 MG TID 11/20 2100 AC 12/04 PO 0938 Hydroxyzine HCl 10 MG BID 11/25 2100 AC 12/04 PO 0939 Insulin Aspart 0 TIDAC 11/21 0800 AC 12/03 SC 1749 Insulin Detemir 24 UNITS AT BEDTIME 11/20 2100 AC 12/03 SC 2210 Melatonin 5 MG AT BEDTIME 11/30 2100 AC 12/03 PO 2206 Metolazone 5 MG DAILY 12/04 1128 AC PO Metolazone 2.5 MG DAILY 12/04 1101 DC PO Nicotine 14 MG DAILY 11/21 1118 AC 12/04 TOP 0937 Omeprazole 40 MG DAILY AC 11/21 0700 AC 12/04 PO 0504 Oxycodone HCl 7.5 MG Q6 PRN 11/28 0700 AC 12/03 PO 2227 Patient Medication 1 ED ONE ONE 12/03 1300 DC Teaching ED 12/03 1301 Pravastatin Sodium 40 MG 1700 11/21 1700 AC 12/03 PO 1748 Pregabalin 50 MG TID 11/20 2100 AC 12/03 PO 2208 Senna 187 MG AT BEDTIME 11/22 2300 AC 12/02 PO 2159 Sevelamer Carbonate 800 MG WM 11/23 1700 AC 12/04 PO 0938 Sodium Chloride 2 SPRAY Q4P PRN 11/26 0815 AC 11/27 BECKA 0644 Torsemide 80 MG BID 12/04 1126 AC PO Trazodone HCl 50 MG AT BEDTIME 11/25 2100 AC 12/03 PO 2206 Last 24 Hrs of Lab/Olu Results Last 24 Hrs of Labs/Mics: Laboratory Tests 12/04/17 0548: Anion Gap 9, Estimated GFR 17 L, BUN/Creatinine Ratio 22.8 Assessment/Plan Assessment: Ms. 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 #Acute decompensated HF #Cardiorenal syndrome #Hypertensive urgency - resolved #False pos HCV Plan: TRC/nebs PRN We will start Torsemide 80 mg BID in addition to PO Furosemide Continue hydralazine, carvedilol We will discontinue amlodipine Avoiding ADRI inhibitors per nephrology Appreciate cardiology recommendations Appreciate nephrology recommendations DVT ppx: ALPS, pt refused Heparin because of injection site bleeding Diet: Diabetic Code: Full Problem List: 1. Dyspnea 2. CKD (chronic kidney disease) Pain Ratin Pain Location: NA Pain Goal: Remain pain free Pain Plan: NA Tomorrow's Labs & Rationales: CBC, BEP Adonis WILLIAMSON,[facility] 12/04/17 1153: Attending MD Review Statement Attending Statement Attending MD Statement: examined this patient, discuss w/resident/PA/SIGNAL HELPER, agreed w/resident/PA/SIGNAL HELPER, reviewed EMR data (avail), discussed with nursing, discussed with case mgmt, reviewed images, amended to note Attending Assessment/Plan: Patient seen and examined, very upset about everything going on. She claims that she has been here for 15 days and her kidney numbers are getting worse. She did not have any improvement in her lower extremity swelling. She is just very frustrated. She absolutely refuses to take IV Lasix. Vital Signs Date Time Temp Pulse Resp B/P B/P Pulse O2 O2 Flow FiO2 Mean Ox Delivery Rate 12/04 0939 66 130/72 12/04 0938 66 130/72 12/04 0938 66 130/72 12/04 0546 98.1 64 21 142/64 93 Nasal 2.0L Cannula 12/04 0000 Nasal 2.0L Cannula 12/038 70 150/60 12/036 70 150/60 12/03 2206 70 150/60 12/03 2042 98.8 70 20 150/60 95 Nasal 2.0L Cannula 12/03 2030 Nasal 2.0L Cannula 12/03 1618 95 Nasal 2.0L Cannula 12/03 1434 98.7 70 18 132/66 96 Nasal Cannula 12/03 1425 98.0 60 16 138/80 95 Room Air on exam; aox3, nad. cv; s1, s2, rrr resp; clear abd; soft, nt, bs+ ext; 2+ edema Laboratory Tests 12/04 0548 Chemistry Sodium (137 - 145 mmol/L) 143 Potassium (3.5 - 5.1 mmol/L) 5.2 H Chloride (98 - 107 mmol/L) 100 Carbon Dioxide (22 - 30 mmol/L) 34 H Anion Gap (5 - 16) 9 BUN (7 - 17 mg/dL) 66 H Creatinine (0.5 - 1.0 mg/dL) 2.9 H Estimated GFR (>60 ml/min) 17 L BUN/Creatinine Ratio (7 - 25 %) 22.8 A/P; 62 y/o F with pmh sig for COPD,MITZY, HLD, HFpEF with possiblilty of rigt sided failure, DM, osteoporosis, iron deficiency anemia, CKD Stage 4, admitted with acute daistolic CHF, AC/ CH renal Failure, Resistent LE edema and possible cardiorenal syndrome. Discuss with nephrology. Patient absolutely refuses IV Lasix. At this point we 'll try oral torsemide as well as metolazone. Please also discuss with cardiology about use of any inotropic agents with the possibility of right-sided heart failure in a patient with long-standing COPD and MITZY. Although she does have left ventricle hypertrophy, echocardiogram report says diastolic filling pattern is normal. Agree with stopping amlodipine. We will try to control her blood pressure with the diuretics as well as hydralazine continue other current cardiac meds and inhalers. DVT px: Heparin subcutaneous. Patient claims that she is bleeding from the heparin subcutaneous injections. We'll hold it temporarily and put her on Alps
--- NOTE | 2017-12-04 14:23 | PN- Nephrology ---
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 ADDY - Likely 2/2 cardiorenal factors (HFpEF) - unfortunately with fluctuating SCr with attempts at diuresis. Weight is still up and she has evidence of volume expansion on exam and imaging. She is refusing IV diuretics - I think we can switch to a very bioavailable diuretic (e.g. torsemide) along with a thiazide (e.g. metolazone) to augment diuresis. Anemia - On weekly Epogen. Suggestion: -Torsemide 80mg PO BID + 5mg metolazone daily (given prior to one of her torsemide doses); 1L/day fluid restriction -Standing weights only -Cont weekly Epogen Please call [phone] with ?'s Subjective Subjective: SCr 2.9 Got 80mg IV lasix BID yesterday - 1100cc UOP - weight 206lbs Refusing IV lasix this AM Still on supplemental O2 Chest x-ray yesterday still with some pulm edema Objective Vital Signs and I&Os Vital Signs Date Time Temp Pulse Resp B/P B/P Pulse O2 O2 Flow FiO2 Mean Ox Delivery Rate 12/04 1350 98.1 66 130/72 12/04 0939 66 130/72 12/04 0938 66 130/72 12/04 0938 66 130/72 12/04 0546 98.1 64 21 142/64 93 Nasal 2.0L Cannula 12/04 0000 Nasal 2.0L Cannula 12/03 2208 70 150/60 12/03 2206 70 150/60 12/03 2206 70 150/60 12/03 2042 98.8 70 20 150/60 95 Nasal 2.0L Cannula 12/03 2030 Nasal 2.0L Cannula 12/03 1618 95 Nasal 2.0L Cannula 12/03 1434 98.7 70 18 132/66 96 Nasal Cannula 12/03 1425 98.0 60 16 138/80 95 Room Air Intake & Output 12/04 1600 12/04 0400 12/03 1600 12/03 0400 12/02 1600 12/02 0400 Intake Total 240 100 820 200 730 440 Output Total 900 0180 393 3965 650 Balance -660 100 -280 -450 -395 -210 Intake, IV 10 Intake, Oral 240 100 820 200 720 440 Output, Urine 900 [phone] 650 Patient 206 lb 204 lb 207 lb 205 lb Weight Weight Standing Scale Standing Scale Bed scale Bed scale Measurement Method Physical Exam: Gen - OK appearing HEENT - JVP not clearly up CV - RRR, no m/r/g Chest - poor inspiratory effort, unable to auscultate any w/r/r Abd - soft, NTND Ext - 2+ edema to knees Neuro - AOX3, grossly nonfocal Current Medications: Current Medications Sig/Jannet Start time Last Medication Dose Route Stop Time Status Admin Acetaminophen 1,000 MG Q8P PRN 11/27 1315 AC 11/27 PO 1442 Albuterol Sulfate 2 PUF Q4 11/20 2200 AC 12/04 INH 1144 Amlodipine Besylate 5 MG BID 11/28 2100 DC 12/04 PO 0939 Aspirin Buffered 81 MG DAILY 11/20 1844 AC 12/04 PO 0938 Bisacodyl 5 MG DAILY 11/28 0945 AC 12/03 PO 0823 Budesonide/ 2 PUF BID 11/20 2100 AC 12/04 Formoterol Fumarate INH 0940 Calcium Carbonate 1,250 MG TID 11/23 1400 AC 12/04 PO 1350 Carvedilol 25 MG BID 11/20 2100 AC 12/04 PO 0938 Docusate Sodium 100 MG DAILY NEEDED PRN 11/28 0945 AC PO Epoetin Elia 15,000 U QTUES 11/27 1034 AC 12/04 SC 1143 Fenofibrate 48 MG DAILY 11/21 0900 AC 12/04 PO 0939 Ferrous Sulfate 325 MG BID 11/20 2100 AC 12/04 PO 0939 Furosemide 80 MG ONE ONE 12/04 1130 CAN PO 12/04 1131 Furosemide 80 MG BID 12/01 2100 DC 12/03 IV 2209 Heparin Sodium 5,000 UNIT Q8 11/20 2200 DC 12/04 (Porcine) SC 0504 Hydralazine HCl 100 MG TID 11/20 2100 AC 12/04 PO 1350 Hydroxyzine HCl 10 MG BID 11/25 2100 AC 12/04 PO 0939 Insulin Aspart 0 TIDAC 11/21 0800 AC 12/04 SC 1303 Insulin Detemir 24 UNITS AT BEDTIME 11/20 2100 AC 12/03 SC 2210 Melatonin 5 MG AT BEDTIME 08 2100 AC 12/03 PO 2206 Metolazone 5 MG DAILY 12/04 1128 AC 12/04 PO 1303 Metolazone 2.5 MG DAILY 12/04 1101 DC PO Nicotine 14 MG DAILY 11/21 1118 AC 12/04 TOP 0937 Omeprazole 40 MG DAILY AC 11/21 0700 AC 12/04 PO 0504 Oxycodone HCl 7.5 MG Q6 PRN 11/28 0700 AC 12/03 PO 2227 Pravastatin Sodium 40 MG 1700 11/21 1700 AC 12/03 PO 1748 Pregabalin 50 MG TID 11/20 2100 AC 12/04 PO 1350 Senna 187 MG AT BEDTIME 11/22 2300 AC 12/02 PO 2159 Sevelamer Carbonate 800 MG WM 11/23 1700 AC 12/04 PO 1303 Sodium Chloride 2 SPRAY Q4P PRN 11/26 0815 AC 11/27 BECKA 0644 Torsemide 80 MG BID 12/04 1126 AC 12/04 PO 1350 Trazodone HCl 50 MG AT BEDTIME 11/25 2100 AC 12/03 PO 2206 Results Pertinent Lab Results: Laboratory Tests 12/04 12/03 12/02 0548 0637 0640 Chemistry Sodium (137 - 145 mmol/L) 143 141 139 Potassium (3.5 - 5.1 mmol/L) 5.2 H 5.2 H 5.4 H Chloride (98 - 107 mmol/L) 100 98 100 Carbon Dioxide (22 - 30 mmol/L) 34 H 34 H 32 H Anion Gap (5 - 16) 9 9 7 BUN (7 - 17 mg/dL) 66 H 64 H 70 H Creatinine (0.5 - 1.0 mg/dL) 2.9 H 3.0 H 2.6 H Estimated GFR (>60 ml/min) 17 L 16 L 19 L BUN/Creatinine Ratio (7 - 25 %) 22.8 21.3 26.9 H Lme-I-Dxmanzbordf Pept (<125 pg/mL) 1740 H Hematology CBC w Diff NO MAN DIFF REQ WBC (4.8 - 10.8 /CUMM) 6.4 RBC (4.20 - 5.40 /CUMM) 3.11 L Hgb (12.0 - 16.0 G/DL) 9.6 L Hct (37 - 47 %) 29.6 L MCV (81.0 - 99.0 FL) 95.3 MCH (27.0 - 31.0 PG) 30.8 MCHC (33.0 - 37.0 G/DL) 32.3 L RDW (11.5 - 14.5 %) 14.1 Plt Count (130 - 400 /CUMM) 294 MPV (7.4 - 10.4 FL) 8.3 Gran % (42.2 - 75.2 %) 71.1 Lymphocytes % (20.5 - 51.1 %) 14.7 L Monocytes % (1.7 - 9.3 %) 9.9 H Eosinophils % (0 - 5 %) 3.3 Basophils % (0.0 - 2.0 %) 1.0 Absolute Granulocytes (1.4 - 6.5 /CUMM) 4.5 Absolute Lymphocytes (1.2 - 3.4 /CUMM) 0.9 L Absolute Monocytes (0.10 - 0.60 /CUMM) 0.6 Absolute Eosinophils (0.0 - 0.7 /CUMM) 0.2 Absolute Basophils (0.0 - 0.2 /CUMM) 0.1 Imaging/Other Studies: EXAMINATION: XR CHEST CLINICAL INFORMATION: Fluid overload. Clinical suspicion of congestive heart failure COMPARISON: 11/26/17 TECHNIQUE: 2 views of the chest were obtained. FINDINGS: Lordotic projection. Prominent globular cardiac silhouette. No large hilar mass. The central vessels are somewhat cephalized. There is no alveolar edema. Habitus limits exam. There is no dense consolidation or large area of atelectasis. There is some fissural fluid. No significant pleural fluid. No pneumothorax. Limited bone detail IMPRESSION: Limited study. Prominent cardiac silhouette. Prominent central vessels with mild amount of fissural fluid. No acute pneumonia or alveolar edema In comparison with 11/26/17 lungs are somewhat improved
[2017-12-04 21:49] VITALS: BP 170/70
[2017-12-05 06:18] VITALS: BP 124/60
--- NOTE | 2017-12-05 07:12 | PN- Housestaff ---
Bere Bronson 12/05/17 0712: Subjective Follow-up For: Acute decompensated heart failure cardiorenal syndrome Subjective: No complaints or acute events overnight Review of Systems Constitutional: Reports: see HPI. Objective Last 24 Hrs of Vital Signs/I&O Vital Signs Date Time Temp Pulse Resp B/P B/P Pulse O2 O2 Flow FiO2 Mean Ox Delivery Rate 12/05 0618 97.8 65 18 124/60 94 Nasal Cannula 12/05 0000 93 Nasal 1.0L Cannula 12/04 2213 170/70 12/04 2212 170/70 12/04 2149 98.1 74 17 170/70 93 Nasal 2.0L Cannula 12/04 1600 94 Nasal 1.0L Cannula 12/04 1350 98.1 66 130/72 12/04 0939 66 130/72 12/04 0938 66 130/72 12/04 0938 66 130/72 12/04 0800 91 Nasal 1.0L Cannula Intake & Output 12/05 0800 12/05 0000 12/04 1600 Intake Total 60 180 450 Output Total 1000 400 300 Balance -940 -220 150 Intake, Oral 60 180 450 Output, Urine 1000 400 300 Patient 207 lb Weight Weight Standing Scale Measurement Method Physical Exam General Appearance: Alert, Oriented X3, Cooperative, No Acute Distress Cardiovascular: Regular Rate, Normal S1, Normal S2 Lungs: Clear to Auscultation, Normal Air Movement Abdomen: Normal Bowel Sounds, Soft, No Tenderness Extremities: BL 2+ edema Current Medications: Current Medications Sig/Jannet Start time Last Medication Dose Route Stop Time Status Admin Acetaminophen 1,000 MG Q8P PRN 11/27 1315 AC 11/27 PO 1442 Albuterol Sulfate 2 PUF Q4 11/20 2199 AC 12/05 INH 0523 Amlodipine Besylate 5 MG BID 11/28 2100 DC 12/04 PO 0939 Aspirin Buffered 81 MG DAILY 11/20 1844 AC 12/04 PO 0938 Bisacodyl 5 MG DAILY 11/28 0945 AC 12/03 PO 0823 Budesonide/ 2 PUF BID 11/20 2100 AC 12/04 Formoterol Fumarate INH 2208 Calcium Carbonate 1,250 MG TID 11/23 1400 AC 12/04 PO 2212 Carvedilol 25 MG BID 11/20 2100 AC 12/04 PO 2212 Docusate Sodium 100 MG DAILY NEEDED PRN 11/28 0945 AC PO Epoetin Elia 15,000 U QTUES 11/27 1034 AC 12/04 SC 1143 Fenofibrate 48 MG DAILY 11/21 0900 AC 12/04 PO 0939 Ferrous Sulfate 325 MG BID 11/20 2100 AC 12/04 PO 2211 Furosemide 80 MG ONE ONE 12/04 1130 CAN PO 12/04 1131 Furosemide 80 MG BID 12/01 2100 DC 12/03 IV 2209 Heparin Sodium 5,000 UNIT Q8 11/20 2200 DC 12/04 (Porcine) SC 0504 Hydralazine HCl 100 MG TID 11/20 2100 AC 12/04 PO 2213 Hydroxyzine HCl 10 MG BID 11/25 2100 AC 12/04 PO 2213 Insulin Aspart 0 TIDAC 11/21 0800 AC 12/04 SC 1303 Insulin Detemir 24 UNITS AT BEDTIME 11/20 2100 AC 12/04 SC 2207 Melatonin 5 MG AT BEDTIME 11/30 2100 AC 12/04 PO 2211 Metolazone 5 MG DAILY 12/04 1128 AC 12/04 PO 1303 Metolazone 2.5 MG DAILY 12/04 1101 DC PO Nicotine 14 MG DAILY 11/21 1118 AC 12/04 TOP 0937 Omeprazole 40 MG DAILY AC 11/21 0700 AC 12/05 PO 0523 Oxycodone HCl 7.5 MG Q6 PRN 11/28 0700 AC 12/04 PO 1933 Pravastatin Sodium 40 MG 1700 11/21 1700 AC 12/04 PO 1736 Prednisone 40 MG DAILY 12/04 1544 AC 12/04 PO 1736 Pregabalin 50 MG TID 11/20 2100 AC 12/04 PO 2209 Senna 187 MG AT BEDTIME 11/22 2300 AC 12/02 PO 2159 Sevelamer Carbonate 800 MG WM 11/23 1700 AC 12/04 PO 1736 Sodium Chloride 2 SPRAY Q4P PRN 11/26 0815 AC 11/27 BECKA 0644 Torsemide 80 MG BID 12/04 1126 AC 12/04 PO 2210 Trazodone HCl 50 MG AT BEDTIME 11/25 2100 AC 12/04 PO 2212 Assessment/Plan Assessment: Ms. 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 #Acute decompensated HF #Cardiorenal syndrome #Hypertensive urgency - resolved #False pos HCV Plan: TRC/nebs PRN Continue Torsemide 80 mg BID and Metolazone 5mg Continue hydralazine, carvedilol We discontinued amlodipine Avoiding ADRI inhibitors per nephrology Appreciate cardiology recommendations Appreciate nephrology recommendations DVT ppx: ALPS, pt refused Heparin because of injection site bleeding Diet: Diabetic Code: Full Problem List: 1. Dyspnea 2. ARF (acute renal failure) Pain Ratin Pain Location: NA Pain Goal: Remain pain free Pain Plan: NA Tomorrow's Labs & Rationales: CBC, BEP Adonis WILLIAMSON,[facility] 12/05/17 1149: Attending MD Review Statement Attending Statement Attending MD Statement: examined this patient, discuss w/resident/PA/FUR OPERATOR, agreed w/resident/PA/FUR OPERATOR, reviewed EMR data (avail), discussed with nursing, discussed with case mgmt, reviewed images, amended to note Attending Assessment/Plan: Patient seen and examined, improving. Oxygen requirement has improved so is her breathing. Still has lower extremities edema. Cr improving. Vital Signs Date Time Temp Pulse Resp B/P B/P Pulse O2 O2 Flow FiO2 Mean Ox Delivery Rate 12/05 0827 65 124/60 12/05 0826 65 124/60 12/05 0800 94 Nasal 1.0L Cannula 12/05 0618 97.8 65 18 124/60 94 Nasal Cannula 12/05 0000 93 Nasal 1.0L Cannula 12/04 2213 170/70 12/04 2212 170/70 12/04 2149 98.1 74 17 170/70 93 Nasal 2.0L Cannula 12/04 1600 94 Nasal 1.0L Cannula 12/04 1350 98.1 66 130/72 on exam; aox3, nad. cv; s1,s2, rrr resp; clear abd; soft, nt, bs+ ext; 2+ edema Laboratory Tests 12/05 0823 Chemistry Sodium (137 - 145 mmol/L) 138 Potassium (3.5 - 5.1 mmol/L) 5.0 Chloride (98 - 107 mmol/L) 97 L Carbon Dioxide (22 - 30 mmol/L) 34 H Anion Gap (5 - 16) 7 BUN (7 - 17 mg/dL) 69 H Creatinine (0.5 - 1.0 mg/dL) 2.6 H Estimated GFR (>60 ml/min) 19 L BUN/Creatinine Ratio (7 - 25 %) 26.5 H A/P; 62 y/o F with pmh sig for COPD,MITZY, HLD, ch HFpEF with possiblilty of rigt sided heart failure, DM, osteoporosis, iron deficiency anemia, CKD Stage 4, admitted with acute diastolic CHF, AC/ CH renal Failure, resistent LE edema and possible cardiorenal syndrome. Patient seems to be responding to the current regimen of diuretics as well as steroids. Oxygen requirement has improved. Will continue to taper. We should check her ambulatory O2 sat to see if she would need to go home with oxygen. Creatinine improving. At this point we'll continue the current regimen and monitor the renal function. If that continues to improve with continued improvement in oxygen requirement and patient can likely be discharged home tomorrow. She is ambulating. Continue the rest of the management. DVT px; ALPS. Pt was bleeding from hep sq injuction site.
--- NOTE | 2017-12-05 10:06 | PN- Cardiology ---
Subjective Subjective: The patient has no complaints at this time. She is now on 2 N. Her diuretic has been changed to torsemide and she is on metolazone as well. BUN is stable and creatinine is slightly improved today. She still has some edema. She is still on oxygen. Weight is stable but I&O indicates negative balance. Objective Vital Signs and I&Os Vital Signs Date Time Temp Pulse Resp B/P B/P Pulse O2 O2 Flow FiO2 Mean Ox Delivery Rate 12/05 0827 65 124/60 12/05 0826 65 124/60 12/05 0800 94 Nasal 1.0L Cannula 12/05 0618 97.8 65 18 124/60 94 Nasal Cannula 12/05 0000 93 Nasal 1.0L Cannula 12/04 2213 170/70 12/04 2212 170/70 12/04 2149 98.1 74 17 170/70 93 Nasal 2.0L Cannula 12/04 1600 94 Nasal 1.0L Cannula 12/04 1350 98.1 66 130/72 Intake & Output 12/05 1600 12/05 0800 12/05 0000 12/04 1600 12/04 0800 12/04 0000 Intake Total 60 180 450 240 100 Output Total 1000 400 300 900 Balance -940 -220 150 -660 100 Intake, Oral 60 180 450 240 100 Output, Urine 1000 400 300 900 Patient 207 lb 206 lb 204 lb Weight Weight Standing Scale Standing Scale Standing Scale Measurement Method Physical Exam: HEENT exam normal Chest is clear Heart systolic ejection murmur at base, regular rhythm Extremities 1-2+ edema perhaps slightly improved Current Medications: Current Medications Sig/Jannet Start time Last Medication Dose Route Stop Time Status Admin Acetaminophen 1,000 MG Q8P PRN 11/27 1315 AC 11/27 PO 1442 Albuterol Sulfate 2 PUF Q4 11/20 2200 AC 12/05 INH 0946 Amlodipine Besylate 5 MG BID 11/28 2100 DC 12/04 PO 0939 Aspirin Buffered 81 MG DAILY 11/20 1844 AC 12/05 PO 0827 Bisacodyl 5 MG DAILY 11/28 0945 AC 12/03 PO 0823 Budesonide/ 2 PUF BID 11/20 2100 AC 12/05 Formoterol Fumarate INH 0826 Calcium Carbonate 1,250 MG TID 11/23 1400 AC 12/05 PO 0827 Carvedilol 25 MG BID 11/20 2099 AC 12/05 PO 0827 Docusate Sodium 100 MG DAILY NEEDED PRN 11/28 0945 AC PO Epoetin Elia 15,000 U QTUES 11/27 1034 AC 12/04 SC 1143 Fenofibrate 48 MG DAILY 11/21 0900 AC 12/05 PO 0827 Ferrous Sulfate 325 MG BID 11/20 2100 AC 12/05 PO 0827 Furosemide 80 MG ONE ONE 12/04 1130 CAN PO 12/04 1131 Furosemide 80 MG BID 12/01 2100 DC 12/03 IV 2209 Heparin Sodium 5,000 UNIT Q8 11/20 2200 DC 12/04 (Porcine) SC 0504 Hydralazine HCl 100 MG TID 11/20 2100 AC 12/05 PO 0826 Hydroxyzine HCl 10 MG BID 11/25 2100 AC 12/05 PO 0826 Insulin Aspart 0 TIDAC 11/21 0800 AC 12/05 SC 0826 Insulin Detemir 24 UNITS AT BEDTIME 11/20 2100 AC 12/04 SC 2207 Melatonin 5 MG AT BEDTIME 11/30 2100 AC 12/04 PO 2211 Metolazone 5 MG DAILY 12/04 1128 AC 12/05 PO 0827 Metolazone 2.5 MG DAILY 12/04 1101 DC PO Nicotine 14 MG DAILY 11/21 1118 AC 12/04 TOP 0937 Omeprazole 40 MG DAILY AC 11/21 0700 AC 12/05 PO 0523 Oxycodone HCl 7.5 MG Q6 PRN 11/28 0700 AC 12/05 PO 0834 Pravastatin Sodium 40 MG 1700 11/21 1700 AC 12/04 PO 1736 Prednisone 40 MG DAILY 12/04 1544 AC 12/05 PO 0827 Pregabalin 50 MG TID 11/20 2100 AC 12/05 PO 0826 Senna 187 MG AT BEDTIME 11/22 2300 AC 12/02 PO 2159 Sevelamer Carbonate 800 MG WM 11/23 1700 AC 12/05 PO 0826 Sodium Chloride 2 SPRAY Q4P PRN 11/26 0815 AC 11/27 BECKA 0644 Torsemide 80 MG BID 12/04 1126 AC 12/05 PO 0947 Trazodone HCl 50 MG AT BEDTIME 11/25 2100 AC 12/04 PO 2212 Results Last 48 Hrs of Labs/Mics: Laboratory Tests 12/05/17 0823: Anion Gap 7, Estimated GFR 19 L, BUN/Creatinine Ratio 26.5 H 12/04/17 0548: Anion Gap 9, Estimated GFR 17 L, BUN/Creatinine Ratio 22.8 Recent Imaging Studies: PATIENT: ORLIN FERNANDEZ PRESENT AGE: 62 PATIENT ACCOUNT NO: [id number] : 57 LOCATION: 1NO ORDERING PHYSICIAN: Gil Lawson MD SERVICE DATE: 12/03/17 EXAM TYPE: US - US-EXT BILAT VENOUS DOPPLER EXAMINATION: US TRIPLEX OF LOWER EXTREMITIES, BILATERAL CLINICAL INFORMATION: Edema COMPARISON: None TECHNIQUE: Color-flow triplex imaging with spectral analysis and compression Doppler were performed on the lower extremities. FINDINGS: Respiratory variation, normal compression and augmented flow are noted throughout the lower extremities. The visualized common femoral vein, superficial femoral vein, profunda femoral vein, popliteal vein and midcalf peroneal and posterior tibial venous segments show no evidence of deep venous thrombosis. There is no Galindo's cyst. Subcutaneous edema noted in bilateral calves. IMPRESSION: No sonographic evidence of deep venous thrombosis involving the bilateral lower extremities. DICTATED BY: Sabine Beavers MD DATE/TIME DICTATED:12/03/171537 PACKING SHED SUPERVISOR:NIKI DATE/TIME TRANSCRIBED:12/03/171537 PATIENT: ORLIN FERNANDEZ PRESENT AGE: 62 PATIENT ACCOUNT NO: [id number] : 59 LOCATION: 1NO ORDERING PHYSICIAN: Gil Lawson MD SERVICE DATE: 12/03/17- EXAM TYPE: RAD - XRY-CHEST XRAY, TWO VIEWS EXAMINATION: XR CHEST CLINICAL INFORMATION: Fluid overload. Clinical suspicion of congestive heart failure COMPARISON: 11/26/17 TECHNIQUE: 2 views of the chest were obtained. FINDINGS: Lordotic projection. Prominent globular cardiac silhouette. No large hilar mass. The central vessels are somewhat cephalized. There is no alveolar edema. Habitus limits exam. There is no dense consolidation or large area of atelectasis. There is some fissural fluid. No significant pleural fluid. No pneumothorax. Limited bone detail IMPRESSION: Limited study. Prominent cardiac silhouette. Prominent central vessels with mild amount of fissural fluid. No acute pneumonia or alveolar edema In comparison with 11/26/17 lungs are somewhat improved DICTATED BY: Ruddy Pedroza MD DATE/TIME DICTATED:12/03/171523 PACKING SHED SUPERVISOR:NIKI DATE/TIME TRANSCRIBED:12/03/171523 CONFIDENTIAL, DO NOT COPY WITHOUT APPROPRIATE AUTHORIZATION. <Electronically signed in Other Vendor System> SIGNED BY: Ruddy Pedroza MD 12/03/17 6154 Assessment/Plan Assessment/Plan The patient appears improved. I recommend trying to wean her off of oxygen. She is probably nearly ready for discharge. I would send her home on the torsemide and metolazone but would not give her metolazone every day to avoid dehydration, perhaps every other day. Continue telemetry? Not applicable
[2017-12-05 13:45] VITALS: BP 134/76
--- NOTE | 2017-12-05 13:57 | PN- Nephrology ---
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 ADDY - Likely 2/2 cardiorenal factors (HFpEF). Improving. CHF - Still volume expanded - I feel like we could get her more euvolemic but care has been limited by fluid/salt intake and her willingness to take IV diuretics. She also says that she is leaving tomorrow [no matter what]. She had been on a lower dose of diuretic (40mg PO lasix) previously - I think that if we send her out on torsemide (more bioavailable) with PRN metolazone, this may be a better way to keep her out of the hospital. Anemia - On weekly Epogen. Suggestion: -Torsemide 80mg PO BID + 5mg metolazone daily (given prior to one of her torsemide doses) while remains in-house; plans for 80mg PO torsemide daily with PRN metolazone 5mg for weight gain; 1L/day fluid restriction -Standing weights only -Cont weekly Epogen Please call [phone] with ?'s Subjective Subjective: SCr 2.6 Switched to torsemide 80mg PO BID and 5mg PO metolazone daily 1600cc UOP - 1900cc thus far today Feels like legs are less swollen No weight yet today (had been up 3lbs) Pt says she's going home tomorrow Objective Vital Signs and I&Os Vital Signs Date Time Temp Pulse Resp B/P B/P Pulse O2 O2 Flow FiO2 Mean Ox Delivery Rate 12/05 1303 74 134/76 12/05 0827 65 124/60 12/05 0826 65 124/60 12/05 0800 94 Nasal 1.0L Cannula 12/05 0618 97.8 65 18 124/60 94 Nasal Cannula 12/05 0000 93 Nasal 1.0L Cannula 12/04 2213 170/70 12/04 2212 170/70 12/04 2149 98.1 74 17 170/70 93 Nasal 2.0L Cannula 12/04 1600 94 Nasal 1.0L Cannula Intake & Output 12/05 1600 12/05 0400 12/04 1600 12/04 0400 12/03 1600 12/03 0400 Intake Total 60 180 690 100 820 200 Output Total 6859 321 7569 1100 650 Balance -1840 -220 -510 100 -280 -450 Intake, Oral 60 180 690 100 820 200 Output, Urine 1261 658 0350 1100 650 Patient 207 lb 206 lb 204 lb 207 lb Weight Weight Standing Scale Standing Scale Standing Scale Bed scale Measurement Method Physical Exam: Gen - OK appearing HEENT - JVP not clearly up CV - RRR, no m/r/g Chest - poor inspiratory effort, unable to auscultate any w/r/r Abd - soft, NTND Ext - 2+ edema to knees Neuro - AOX3, grossly nonfocal Current Medications: Current Medications Sig/Jannet Start time Last Medication Dose Route Stop Time Status Admin Acetaminophen 1,000 MG Q8P PRN 11/27 1315 AC 11/27 PO 1442 Albuterol Sulfate 2 PUF Q4 11/20 2200 AC 12/05 INH 1303 Aspirin Buffered 81 MG DAILY 11/20 1844 AC 12/05 PO 0827 Bisacodyl 5 MG DAILY 11/28 0945 AC 12/03 PO 0823 Budesonide/ 2 PUF BID 11/20 2100 AC 12/05 Formoterol Fumarate INH 0826 Calcium Carbonate 1,250 MG TID 11/23 1400 AC 12/05 PO 1303 Carvedilol 25 MG BID 11/20 2100 AC 12/05 PO 0827 Docusate Sodium 100 MG DAILY NEEDED PRN 11/28 0945 AC PO Epoetin Elia 15,000 U QTUES 11/27 1034 AC 12/04 SC 1143 Fenofibrate 48 MG DAILY 11/21 0900 AC 12/05 PO 0827 Ferrous Sulfate 325 MG BID 11/20 2100 AC 12/05 PO 0827 Hydralazine HCl 100 MG TID 11/20 2100 AC 12/05 PO 1303 Hydroxyzine HCl 10 MG BID 11/25 2100 AC 12/05 PO 0826 Insulin Aspart 0 TIDAC 11/21 0800 AC 12/05 SC 1159 Insulin Detemir 24 UNITS AT BEDTIME 11/20 2100 AC 12/04 SC 2207 Melatonin 5 MG AT BEDTIME 11/30 2100 AC 12/04 PO 2211 Metolazone 5 MG DAILY 12/04 1128 AC 12/05 PO 0827 Nicotine 14 MG DAILY 11/21 1118 AC 12/05 TOP 1144 Omeprazole 40 MG DAILY AC 11/21 0700 AC 12/05 PO 0523 Oxycodone HCl 7.5 MG Q6 PRN 11/28 0700 AC 12/05 PO 0834 Patient Medication 1 ED ONE ONE 12/05 1115 DC Teaching ED 12/05 1116 Pravastatin Sodium 40 MG 1700 11/21 1700 AC 12/04 PO 1736 Prednisone 40 MG DAILY 12/04 1544 AC 12/05 PO 0827 Pregabalin 50 MG TID 11/20 2100 AC 12/05 PO 1303 Senna 187 MG AT BEDTIME 11/22 2300 AC 12/02 PO 2159 Sevelamer Carbonate 800 MG WM 11/23 1700 AC 12/05 PO 1159 Sodium Chloride 2 SPRAY Q4P PRN 11/26 0815 AC 11/27 BECKA 0644 Torsemide 80 MG BID 12/04 1126 AC 12/05 PO 0947 Trazodone HCl 50 MG AT BEDTIME 11/25 2100 AC 12/04 PO 2212 Results Pertinent Lab Results: Laboratory Tests 12/05 12/04 12/03 0823 0548 0637 Chemistry Sodium (137 - 145 mmol/L) 138 143 141 Potassium (3.5 - 5.1 mmol/L) 5.0 5.2 H 5.2 H Chloride (98 - 107 mmol/L) 97 L 100 98 Carbon Dioxide (22 - 30 mmol/L) 34 H 34 H 34 H Anion Gap (5 - 16) 7 9 9 BUN (7 - 17 mg/dL) 69 H 66 H 64 H Creatinine (0.5 - 1.0 mg/dL) 2.6 H 2.9 H 3.0 H Estimated GFR (>60 ml/min) 19 L 17 L 16 L BUN/Creatinine Ratio (7 - 25 %) 26.5 H 22.8 21.3 [id number] Pept (<125 pg/mL) 1740 H Imaging/Other Studies: None new TTE CONCLUSIONS Moderate concentric left ventricular hypertrophy. Normal left ventricular ejection fraction visually estimated at >65 Normal left ventricular diastolic filling pattern for age. Left atrial size at the upper limits of normal. Mild thickening/calcification of the mitral valve leaflets. Moderate mitral annular calcification. Mild mitral regurgitation. Focal thickening of the aortic valve cusps. No aortic stenosis. Right ventricular systolic pressure estimated to be elevated at 45- 50 mmHg. The aortic arch and great vessels are not well seen.
[2017-12-05 20:52] VITALS: BP 180/72
[2017-12-05 22:00] VITALS: BP 170/62
[2017-12-06 06:49] VITALS: BP 148/76
--- NOTE | 2017-12-06 07:34 | PN- Housestaff ---
See Addendum Subjective Follow-up For: Acute decompensated heart failure cardiorenal syndrome Subjective: BP remains elevated. Patient denies SOB, she was seen walking without oxygen today. Yesterday evening her ambulatory O2 levels dropped to 80s and she was placed on 1L oxygen. This morning her O2 requirements were 2L. She is very adamant about leaving today to take care of personal obligations Review of Systems Constitutional: Reports: see HPI. Objective Last 24 Hrs of Vital Signs/I&O Vital Signs Date Time Temp Pulse Resp B/P B/P Pulse O2 O2 Flow FiO2 Mean Ox Delivery Rate 12/06 0846 71 152/78 12/06 0844 71 152/78 12/06 0649 97.8 68 18 148/76 93 Nasal 2.0L Cannula 12/06 0000 Nasal 1.0L Cannula 12/05 2200 72 170/62 12/05 2132 80 180/72 12/05 2129 80 180/72 12/05 2052 98.4 80 18 180/72 96 Nasal 2.0L Cannula 12/05 1600 94 Nasal 1.0L Cannula 12/05 1345 98.6 74 18 134/76 93 Nasal 1.0L Cannula 12/05 1303 74 134/76 Intake & Output 12/06 1600 12/06 0800 12/06 0000 Intake Total 30 360 Output Total 1900 Balance 30 -1540 Intake, IV 10 Intake, Oral 30 350 Number 0 Bowel Movements Output, Urine 1900 Patient 201 lb 201 lb Weight Physical Exam General Appearance: Alert, Oriented X3, Cooperative, No Acute Distress Cardiovascular: Regular Rate, Normal S1, Normal S2 Lungs: Clear to Auscultation, Normal Air Movement Abdomen: Normal Bowel Sounds, Soft, No Tenderness Extremities: BLE 2+ edema Current Medications: Current Medications Sig/Jannet Start time Last Medication Dose Route Stop Time Status Admin Acetaminophen 1,000 MG Q8P PRN 11/27 1315 AC 11/27 PO 1442 Albuterol Sulfate 2 PUF Q4-6 PRN PRN 12/05 1645 AC INH Albuterol Sulfate 2 PUF Q4 11/20 2200 DC 12/05 INH 1303 Aspirin Buffered 81 MG DAILY 11/20 1844 AC 12/06 PO 0845 Bisacodyl 5 MG DAILY 11/28 0945 AC 12/03 PO 0823 Budesonide/ 2 PUF BID 11/20 2100 AC 12/06 Formoterol Fumarate INH 0842 Calcium Carbonate 1,250 MG TID 11/23 1400 AC 12/06 PO 0846 Carvedilol 25 MG BID 11/20 2100 AC 12/06 PO 0846 Docusate Sodium 100 MG DAILY NEEDED PRN 11/28 0945 AC PO Epoetin Elia 15,000 U QTUES 11/27 1034 AC 12/04 SC 1143 Fenofibrate 48 MG DAILY 11/21 0900 AC 12/06 PO 0845 Ferrous Sulfate 325 MG BID 11/20 2100 AC 12/06 PO 0846 Hydralazine HCl 100 MG TID 11/20 2100 AC 12/06 PO 0844 Hydroxyzine HCl 10 MG BID 11/25 2100 AC 12/06 PO 0845 Insulin Aspart 0 TIDAC 11/21 0800 AC 12/06 SC 0859 Insulin Detemir 24 UNITS AT BEDTIME 11/20 2100 AC 12/05 SC 2132 Melatonin 5 MG AT BEDTIME 11/30 2100 AC 12/05 PO 2134 Metolazone 5 MG DAILY 12/04 1128 AC 12/05 PO 0827 Nicotine 14 MG DAILY 11/21 1118 AC 12/06 TOP 0842 Omeprazole 40 MG DAILY AC 11/21 0700 AC 12/06 PO 0616 Oxycodone HCl 7.5 MG Q6 PRN 11/28 0700 AC 12/06 PO 0901 Patient Medication 1 ED ONE ONE 12/05 1115 DC Teaching ED 12/05 1116 Pravastatin Sodium 40 MG 1700 11/21 1700 AC 12/05 PO 1659 Prednisone 30 MG DAILY 12/06 0900 AC PO Prednisone 40 MG DAILY 12/04 1544 DC 12/05 PO 0827 Pregabalin 50 MG TID 11/20 2100 AC 12/06 PO 0859 Senna 187 MG AT BEDTIME 11/22 2300 AC 12/02 PO 2159 Sevelamer Carbonate 800 MG WM 11/23 1700 AC 12/06 PO 0844 Sodium Chloride 2 SPRAY Q4P PRN 11/26 0815 AC 11/27 BECKA 0644 Torsemide 80 MG BID 12/04 1126 AC 12/05 PO 2130 Trazodone HCl 50 MG AT BEDTIME 11/25 2100 AC 12/05 PO 2130 Last 24 Hrs of Lab/Olu Results Last 24 Hrs of Labs/Mics: Laboratory Tests 12/06/17 0630: Anion Gap 7, Estimated GFR 19 L, BUN/Creatinine Ratio 26.5 H Assessment/Plan Assessment: Ms. 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 #Acute decompensated HF #Cardiorenal syndrome #Hypertensive urgency - resolved #False pos HCV #Acute hypoxic respiratory failure Plan: TRC/nebs PRN Continue Torsemide 80 mg BID daily and Metolazone 5mg QOD Continue hydralazine, carvedilol We discontinued amlodipine due to S/E LE edema Avoiding ADRI inhibitors per nephrology Appreciate cardiology recommendations Appreciate nephrology recommendations DVT ppx: ALPS, pt refused Heparin because of injection site bleeding Diet: Diabetic Code: Full Dispo: Home with oxygen for ambulation Problem List: 1. Dyspnea 2. CKD (chronic kidney disease) Pain Ratin Pain Location: NA Pain Goal: Remain pain free Pain Plan: NA Tomorrow's Labs & Rationales: none
[2017-12-06] MEDS ORDERED: PREDNISONE10 M2 PO (07:49)
[2017-12-06] MEDS ORDERED: METOLAZONE5 M1 PO ×2 (07:49→10:16)
[2017-12-06] MEDS ORDERED: TORSEMIDE20 M1 PO (07:49)
[2017-12-06] MEDS ORDERED: FUROSEMIDE40 M1 PO (07:51)
[2017-12-06] MEDS ORDERED: NICOTINE PATCH1 EAC2 TOP (07:52)
--- NOTE | 2017-12-06 08:15 | PN- Student ---
Subjective Subjective: Patient reports, that last night she tried walking around without oxygen for the first time and did develop SOB after walking for about 100 feet. She was placed back on oxygen at 2 LPM by SD and recovered. Otherwise she says her main concern is going home and is agitated by how long she has been in the hospital. She is adamant that she is leaving the hospital today. Additionally, she wants to be put on oxygen at home for occassions that she has to be walking around actively. She also notes that since yesterday her urine output has increased. She denies any nausea, vomiting, diarrhea, fever or chills. Current Medications Sig/Jannet Start time Last Medication Dose Route Stop Time Status Admin Acetaminophen 1,000 MG Q8P PRN 11/27 1315 AC 11/27 PO 1442 Albuterol Sulfate 2 PUF Q4-6 PRN PRN 12/05 1645 AC INH Albuterol Sulfate 2 PUF Q4 11/20 2200 DC 12/05 INH 1303 Aspirin Buffered 81 MG DAILY 11/20 1844 AC 12/06 PO 0845 Bisacodyl 5 MG DAILY 11/28 0945 AC 12/03 PO 0823 Budesonide/ 2 PUF BID 11/20 2100 AC 12/06 Formoterol Fumarate INH 0842 Calcium Carbonate 1,250 MG TID 11/23 1400 AC 12/06 PO 0846 Carvedilol 25 MG BID 11/20 2100 AC 12/06 PO 0846 Docusate Sodium 100 MG DAILY NEEDED PRN 11/28 0945 AC PO Epoetin Elia 15,000 U QTUES 11/27 1034 AC 12/04 SC 1143 Fenofibrate 48 MG DAILY 11/21 0900 AC 12/06 PO 0845 Ferrous Sulfate 325 MG BID 11/20 2099 AC 12/06 PO 0846 Hydralazine HCl 100 MG TID 11/20 2099 AC 12/06 PO 0844 Hydroxyzine HCl 10 MG BID 11/25 2100 AC 12/06 PO 0845 Insulin Aspart 0 TIDAC 11/21 08 AC 12/06 SC 0859 Insulin Detemir 24 UNITS AT BEDTIME 11/20 2099 AC 12/05 SC 2132 Melatonin 5 MG AT BEDTIME 11/30 2100 AC 12/05 PO 2134 Metolazone 5 MG Q48 12/08 0900 AC PO Metolazone 5 MG DAILY 12/04 1128 DC 12/05 PO 0827 Nicotine 14 MG DAILY 11/21 1118 AC 12/06 TOP 0842 Omeprazole 40 MG DAILY AC 11/21 0700 AC 12/06 PO 0616 Oxycodone HCl 7.5 MG Q6 PRN 11/28 0700 AC 12/06 PO 0901 Pravastatin Sodium 40 MG 1700 11/21 1700 AC 12/05 PO 1659 Prednisone 30 MG DAILY 12/06 0900 AC PO Prednisone 40 MG DAILY 12/04 1544 DC 12/05 PO 0827 Pregabalin 50 MG TID 11/20 2100 AC 12/06 PO 0859 Senna 187 MG AT BEDTIME 11/22 2300 AC 12/02 PO 2159 Sevelamer Carbonate 800 MG WM 11/23 1700 AC 12/06 PO 0844 Sodium Chloride 2 SPRAY Q4P PRN 11/26 0815 AC 11/27 BECKA 0644 Torsemide 80 MG BID 12/04 1126 AC 12/05 PO 2130 Trazodone HCl 50 MG AT BEDTIME 11/25 2100 AC 12/05 PO 2130 Objective Objective: Physical Exam: General: Patient was resting comfortably, she was a little short with her answers but was speaking easily in full sentances. She was alert and oriented. Skin: Warm and dry throughout. Pitting edema 2+ on right leg, 1+ on left leg. Heart: Normal rate and rhythm. No rubs, clicks, or gallops heard. Lungs: Clear bilaterally. Results Results: Laboratory Tests 12/06/17 0630: Anion Gap 7, Estimated GFR 19 L, BUN/Creatinine Ratio 26.5 H 12/05/17 0823: Anion Gap 7, Estimated GFR 19 L, BUN/Creatinine Ratio 26.5 H 12/04/17 0548: Anion Gap 9, Estimated GFR 17 L, BUN/Creatinine Ratio 22.8 Assessment/Plan Assessment: Patient is a 62 year old female with a history of COPD, MITZY, hyperlipidemia, HFpEF, DM, osteoporosis, iron deficiency anemia, CKD who was admitted on for shortness of breath secondary to fluid overload. She was treated with IV diuretics on the telemetry floor with little improvement to her fluid status. Her edema, mobility, and shortness of breath have been steadily improving since moving to the general medicine floor where on 12/04/17 she was put on Torsemide and Metoprazole over the last few days. She refuses any IV diuretics. In keeping with the patient's wishes, the current oral diuretic is likely to be the most reasonable option to balance the patient's fluid load. Her shortness of breath on exertion improves with supplemental oxygen. It is reasonable to supply her with in home oxygen. Plan: Continue Torsemide at home daily along with Metoprazone every other day to manage fluid levels. We scheduled delivery of a portable oxygen canister for the patient to take home today. She is unwilling/unable to be home or schedule a family member to be home to accept delivery of the in home oxygen tanks, and as such those will be delivered tomorrow. She was instructed to use the portable canister that she is taking with her today on exertion so that is lasts until delivery tomorrow. She is encouraged to follow up care with her PCP. as such those will be delivered tomorrow. She was instructed to use the portable canister that she is taking with her today on exertion so that is lasts until delivery tomorrow. She is encouraged to follow up care with her PCP.
--- NOTE | 2017-12-06 09:42 | Patient Discharge Instructions ---
Discharge Instructions General Discharge Information You were seen/treated for: CHF Exacerbation ADDY on CKD You had these procedures: NONE Watch for these problems: Please return to the ER in case of any worsening SOB, lower extremity edema or chest pain. Special Instructions: Please follow up with your PCP, cardiology and nephrology within a week after discharge. We have also decreased the dose of Trazodone and Atarax your were taking for anxiety and insomnia. Please take as directed. We have changed your furosemide to another water pill. Use your supplied oxygen when ambulating Diet Continue normal diet: Yes Recommended Diet: Heart Healthy Activity Full Activity/No Limits: Yes Acute Coronary Syndrome Inclusion Criteria At DC or during hospital stay patient has or had the following: ACS DIAGNOSIS No Discharge Core Measures Meds if any: Prescribed or Continued at Discharge Meds if any: NOT Prescribed or Continued at Discharge Congestive Heart Failure Inclusion Criteria At DC or during hospital stay patient has or had the following: CHF DIAGNOSIS No Discharge Core Measures Meds if any: Prescribed or Continued at Discharge Meds if any: NOT Prescribed or Continued at Discharge Cerebrovascular accident Inclusion Criteria At DC or during hospital stay patient has or had the following: CVA/TIA Diagnosis No Discharge Core Measures Meds if any: Prescribed or Continued at Discharge Meds if any: NOT Prescribed or Continued at Discharge Venous thromboembolism Inclusion Criteria VTE Diagnosis No VTE Type NONE VTE Confirmed by (Test) NONE Discharge Core Measures - Per Current guidelines, there needs to be overlap - treatment for the first 5 days of Warfarin therapy. - If discharged on Warfarin prior to 5 days of - overlap therapy, the patient will need to be - assessed for post discharge needs including - *Post discharge parental anticoagulation - *Warfarin and/or parental anticoagulation education - *Follow up date to check INR post discharge At least 5 days overlap therapy as Inpatient No Meds if any: Prescribed or Continued at Discharge Note: Overlap Therapy is Warfarin and Anticoagulant Meds if any: NOT Prescribed or Continued at Discharge
--- NOTE | 2017-12-06 11:22 | PN- Nephrology ---
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 ADDY - Likely 2/2 cardiorenal factors (HFpEF). Improving. CHF - Still volume expanded although essentially refusing to stay. Finally put out to 80mg PO torsemide + 5mg PO metolazone daily. That being said, I am a bit afraid to send her out on this amount of diuretics. I think we can do 40mg PO torsemide daily and 5mg PO metolazone BIW (given prior to torsemide doses). She will need labs in 1-2 weeks. Anemia - On weekly Epogen. Suggestion: -On discharge, would give Torsemide 40mg daily + 5mg PO metolazone twice per week to be given just prior to torsemide doses -Cont weekly Epogen Should get BMP 1-2 weeks after discharge Pt has follow-up with Dr. Natarajan on 02/13 at 3pm in the [place] office Please call [phone] with ?'s Subjective Subjective: SCr 2.6 3.8L UOP - 80mg PO torsemide BID + 5mg PO metolazone Pt insists that she's leaving and that she's never met me before - "you know damn well that you've never seen me before and that you're lying" (should note that I have seen her everyday for the last 4 days) Objective Vital Signs and I&Os Vital Signs Date Time Temp Pulse Resp B/P B/P Pulse O2 O2 Flow FiO2 Mean Ox Delivery Rate 12/06 0846 71 152/78 12/06 0844 71 152/78 12/06 0800 97 Nasal 1.0L Cannula 12/06 0649 97.8 68 18 148/76 93 Nasal 2.0L Cannula 12/06 0000 Nasal 1.0L Cannula 12/05 2200 72 170/62 12/05 2132 80 180/72 12/05 2129 80 180/72 12/05 2052 98.4 80 18 180/72 96 Nasal 2.0L Cannula 12/05 1600 94 Nasal 1.0L Cannula 12/05 1345 98.6 74 18 134/76 93 Nasal 1.0L Cannula 12/05 1303 74 134/76 Intake & Output 12/06 1600 12/06 0400 12/05 1600 12/05 0400 12/04 1600 12/04 0400 Intake Total 30 360 470 180 690 100 Output Total 1000 1900 5912 751 4602 Balance -970 -1540 -1430 -220 -510 100 Intake, IV 10 10 Intake, Oral 30 350 460 180 690 100 Number 0 Bowel Movements Output, Urine 1000 [phone] 8855 Patient 201 lb 201 lb 207 lb 206 lb 204 lb Weight Weight Standing Scale Standing Scale Standing Scale Measurement Method Physical Exam: Gen - angry HEENT - supple CV - RRR, no m/r/g Chest - clear, no w/r/r Abd - soft, NTND Ext - ++edema Neuro - AOX3 although confused as to who is seeing her in the hospital Current Medications: Current Medications Sig/Jannet Start time Last Medication Dose Route Stop Time Status Admin Acetaminophen 1,000 MG Q8P PRN 11/27 1315 AC 11/27 PO 1442 Albuterol Sulfate 2 PUF Q4-6 PRN PRN 12/05 1645 AC INH Albuterol Sulfate 2 PUF Q4 11/20 2200 DC 12/05 INH 1303 Aspirin Buffered 81 MG DAILY 11/20 1844 AC 12/06 PO 0845 Bisacodyl 5 MG DAILY 11/28 0945 AC 12/03 PO 0823 Budesonide/ 2 PUF BID 11/20 2100 AC 12/06 Formoterol Fumarate INH 0842 Calcium Carbonate 1,250 MG TID 11/23 1400 AC 12/06 PO 0846 Carvedilol 25 MG BID 11/20 2100 AC 12/06 PO 0846 Docusate Sodium 100 MG DAILY NEEDED PRN 11/28 0945 AC PO Epoetin Elia 15,000 U QTUES 11/27 1034 AC 12/04 AK 1143 Fenofibrate 48 MG DAILY 11/21 0900 AC 12/06 PO 0845 Ferrous Sulfate 325 MG BID 11/20 2100 AC 12/06 PO 0846 Hydralazine HCl 100 MG TID 11/20 2100 AC 12/06 PO 0844 Hydroxyzine HCl 10 MG BID 11/25 2100 AC 12/06 PO 0845 Insulin Aspart 0 TIDAC 11/21 0800 AC 12/06 SC 0859 Insulin Detemir 24 UNITS AT BEDTIME 11/20 2099 AC 12/05 SC 2132 Melatonin 5 MG AT BEDTIME 11/30 2100 AC 12/05 PO 2134 Metolazone 5 MG Q48 12/08 0900 AC PO Metolazone 5 MG DAILY 12/04 1128 DC 12/05 PO 0827 Nicotine 14 MG DAILY 11/21 1118 AC 12/06 TOP 0842 Omeprazole 40 MG DAILY AC 11/21 0700 AC 12/06 PO 0616 Oxycodone HCl 7.5 MG Q6 PRN 11/28 0700 AC 12/06 PO 0901 Pravastatin Sodium 40 MG 1700 11/21 1700 AC 12/05 PO 1659 Prednisone 30 MG DAILY 12/06 0900 AC PO Prednisone 40 MG DAILY 12/04 1544 DC 12/05 PO 0827 Pregabalin 50 MG TID 11/20 2100 AC 12/06 PO 0859 Senna 187 MG AT BEDTIME 11/22 2300 AC 12/02 PO 2159 Sevelamer Carbonate 800 MG WM 11/23 1700 AC 12/06 PO 0844 Sodium Chloride 2 SPRAY Q4P PRN 11/26 0815 AC 11/27 BECKA 0644 Torsemide 80 MG BID 12/04 1126 AC 12/05 PO 2130 Trazodone HCl 50 MG AT BEDTIME 11/25 2100 AC 12/05 PO 2130 Results Pertinent Lab Results: Laboratory Tests 12/06 12/05 12/04 0630 0823 0548 Chemistry Sodium (137 - 145 mmol/L) 139 138 143 Potassium (3.5 - 5.1 mmol/L) 4.4 5.0 5.2 H Chloride (98 - 107 mmol/L) 97 L 97 L 100 Carbon Dioxide (22 - 30 mmol/L) 35 H 34 H 34 H Anion Gap (5 - 16) 7 7 9 BUN (7 - 17 mg/dL) 69 H 69 H 66 H Creatinine (0.5 - 1.0 mg/dL) 2.6 H 2.6 H 2.9 H Estimated GFR (>60 ml/min) 19 L 19 L 17 L BUN/Creatinine Ratio (7 - 25 %) 26.5 H 26.5 H 22.8 Imaging/Other Studies: No new imaging
[2017-12-06 13:56] VITALS: BP 144/80
--- NOTE | 2017-12-06 14:53 | Event Note ---
Event Note Event Note: S: After morning rounds it was agreed upon that she would wait for her portable oxygen prior to leaving today. She wanted her larger home oxygen be delievered tomorrow instead of today because she reports she would like to be there to accept her oxygen. She left today without her portable oxygen and refused to wait for it. She wants her portable oxygen to be delivered to her home along with the home oxygen tank. She also refused her diuretic or wait for her requested wheelchair prior to discharge. B: Ms. 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
[2017-12-07] MEDS ORDERED: TORSEMIDE20 M1 PO (14:34)
[2017-12-07] MEDS ORDERED: PREDNISONE10 M2 PO (14:34)
[2017-12-07] MEDS ORDERED: HYDROXYZINE HCL10 M1 PO (14:34)
[2017-12-07] MEDS ORDERED: RENVELA800 M1 PO (14:34)
[2017-12-07] MEDS ORDERED: CALCIUM CARBON500 M2 PO (14:34)
[2017-12-07] MEDS ORDERED: METOLAZONE5 M1 PO (14:34)
[2017-12-07] MEDS ORDERED: NICOTINE PATCH1 EAC2 TOP (14:35)
[2017-12-07] MEDS ORDERED: TRAZODONE HCL50 M1 PO (14:35)
== END 2017-12-06 14:26 | disposition home health service (06) | DRG 194 ==
LOC: ERH 12:53 → 1NO 17:39 → 2NB 17:39 → ERHI 17:39 → ENRESERV 17:58 → 1NO 19:52 → ENTRNSPT 12-03 20:12 → EDTRNSPTSTS 12-03 20:16 → 2NB 12-03 20:28 → EDTRNSPT 12-03 20:35 → CMPTRNSPT 12-03 20:41 → 2NB 12-05 07:59 → ENPENDDIS 12-06 10:33 → ENTRNSPT 12-06 14:21 → 2NB 12-06 14:26 → CMPTRNSPT 12-06 14:26
PROVIDERS: Internal Medicine; Physician Assistant; Student in an Organized Health Care Education/Training Program
DX: I13.0 Hypertensive heart and chronic kidney disease with heart failure and stage 1 through stage 4 chronic kidney disease, or unspecified chronic kidney disease (principal); I50.33 Acute on chronic diastolic (congestive) heart failure; N18.4 Chronic kidney disease, stage 4 (severe); E11.22 Type 2 diabetes mellitus with diabetic chronic kidney disease; Z79.4 Long term (current) use of insulin; E11.21 Type 2 diabetes mellitus with diabetic nephropathy; D64.89 Other specified anemias; R60.1 Generalized edema; J96.01 Acute respiratory failure with hypoxia; N17.9 Acute kidney failure, unspecified; I16.0 Hypertensive urgency; G47.30 Sleep apnea, unspecified; D50.9 Iron deficiency anemia, unspecified; E78.5 Hyperlipidemia, unspecified; K55.20 Angiodysplasia of colon without hemorrhage; K21.9 Gastro-esophageal reflux disease without esophagitis; M81.0 Age-related osteoporosis without current pathological fracture; Z91.81 History of falling
CPT/HCPCS: 1NP; 2NBP; 84133; 84300; 36415; 36592; 71045; 71046; 76775; 81001; 82436; 82570; 93005; 93010; 93306; 93970; 96374; 96376; 99291; J0360; J0885-EC; J1644; J1815; J1940; J3490; J7040; J7512